=== PATIENT | male | born 1950 | race Caucasian/White ===

== ENCOUNTER → 2018-02-13 09:36 | Outpatient (CLI) | payer MEDICARE, OTHER, SELFPAY ==
[2018-02-13 12:51] LABS: AST(SGOT) 24 U/L (15-37); Alanine Aminotransfer ALT/SGPT 36 U/L (16-61); Albumin, Serum 4.1 g/dL (3.2-5.0); Alkaline Phosphatase 79 U/L (45-117); Bilirubin, Direct 0.18 mg/dL (0.00-0.30); Cholesterol 165 mg/dL (200); Globulin 4.2 g/dL (2.2-4.2); High Density Lipoprotein 57 mg/dL; Protein, Total 8.3 g/dL (6.4-8.2); Triglycerides 62 mg/dL; Very Low Density Lipoprotein 12 mg/dL (5-40)
== END ==
PROVIDERS: Family Provider Internal Medicine; PCP Internal Medicine; Visit Provider Internal Medicine Cardiovascular Disease
DX: E78.5 Hyperlipidemia, unspecified (principal)
CPT/HCPCS: 36415; 80061; 80076

== ENCOUNTER 2018-12-01 19:58 | Emergency (ER) | payer MEDICARE, OTHER, SELFPAY ==
[2018-12-01 19:59] VITALS: BP 136/67; PULSE 67; RESP 16; TEMP 36.5; O2SAT 97; BMI 32.3
[2018-12-01 20:30] VITALS: PULSE 58; RESP 20; O2SAT 93
--- NOTE | 2018-12-01 20:32 | EKG12_ITS ---
Test Reason : DIZZINESS Blood Pressure : / mmHG Vent. Rate : 057 BPM Atrial Rate : 057 BPM P-R Int : 224 ms QRS Dur : 118 ms QT Int : 466 ms P-R-T Axes : 038 070 040 degrees QTc Int : 453 ms Sinus bradycardia with 1st degree A-V block Non-specific intra-ventricular conduction delay Borderline ECG Confirmed by INGRID CHRISTIANSON ([id number]), book editor SHANTEL RDZ ([id number]) on 12/03/2018 10:11:58 AM Referred By: DC Confirmed By:INGRID CHRISTIANSON
--- NOTE | 2018-12-01 20:36 | RAD_ITS ---
HISTORY:PT ARRIVES TO ED WITH DIZZINESS AND NAUSEA. PT WAS IN THE HEAT ALL DAY PT ARRIVES TO ED WITH DIZZINESS AND NAUSEA. PT WAS IN THE HEAT ALL DAY EXAM: XR Chest 1 View: COMPARISON: None FINDINGS: # of images incl. paperwork: 1 LINES/DEVICES: None. LUNGS: Left midlung atelectasis. No consolidation, edema or effusion. No pneumothorax. MEDIASTINUM AND CARDIOVASCULAR STRUCTURES: Cardiac silhouette not enlarged. BONES AND SOFT TISSUES: Unremarkable. RAD/Chest 1 View (Portable) IMPRESSION: Left midlung atelectasiss at 2106 Reported and signed by: Ariadne Hernandez DO Electronically Signed: Ariadne Hernandez DO at 21:05 EDT Tel , Service support ,
[2018-12-01] MEDS: 0.9% Normal Saline 1,000 ML 1000 ML IV (20:43)
[2018-12-01 20:47] VITALS: BP 134/68; BP 135/75; BP 142/66; PULSE 58; PULSE 59; PULSE 61
[2018-12-01 20:53] LABS: Absolute Lymphocyte Count 2.87 X10^3/uL (0.83-4.51); Absolute Neutrophil Count 4.7 X10^3/uL (2.0-7.7); Basophil# 0.05 X10^3/uL; Basophil% 0.6 % (0-1); Eosinophil# 0.16 X10^3/uL; Eosinophils% 1.9 % (0-5); Hematocrit 38.9 % (40-54); Hemoglobin 13.3 g/dL (13.0-16.5); Lymphocyte # 2.87 X10^3/ul (4.0); Lymphocyte % 34.2 % (19-41); Mean Corp Hgb Conc 34.2 g/dL (32-36); Mean Corpuscular Hgb 32.4 pg (27.0-32.0); Mean Corpuscular Volume 94.6 fL (80-94); Mean Platelet Vol. 9.6 fl (6.2-12.0); Monocyte# 0.64 X10^3/uL; Monocyte% 7.6 % (0-10); NRBC Flagged by Analyzer 0 % (0-5); Neutrophil # 4.65 X10^3/uL (2.7-7.7); Neutrophil % 55.3 % (47-70); Platelet Count 238 K/mm3 (150-450); RBC Distribution Width CV 12.8 % (11.6-14.6); RBC Distribution Width SD 44.2 fl (35.1-43.9); Red Blood Count 4.11 M/mm3 (4.6-6.2); White Blood Count 8.4 K/mm3 (4.4-11.0)
[2018-12-01 21:26] LABS: Anion Gap 10 (5-15); BUN 20 mg/dL (7-18); BUN/Creat Ratio 17.2 RATIO (10-20); Calcium,Total 8.5 mg/dL (8.5-10.1); Chloride 104 mmol/L (98-107); Creatinine, Serum 1.16 mg/dL (0.70-1.30); EST Glomerular Filtration Rate 67 mL/min (>60); Est Glom Filt Rate - Afr Amer 81 mL/min (>60); Estimated Creatinine Clearance 63.81 ml/min; Glucose 118 mg/dL (74-106); Potassium 3.7 mmol/L (3.5-5.1); Sodium Level 137 mmol/L (136-145)
[2018-12-01 21:30] VITALS: BP 139/75; PULSE 54; RESP 14; O2SAT 96
--- NOTE | 2018-12-01 22:04 | ED.DCSUM_ITS ---
- ER Visit Summary Date of Service: 12/01/18 Chief Complaint: Lightheadedness History of Present Illness: The patient is a 68 M who presents with lightheadedness. It started when he stood up. He had been bending over to pull weeds. He felt like he was going to pass out. He was sweaty. He developed some nausea and vomited. He said he never felt like this before. He has a history of high blood pressure and high cholesterol as well as A. fib. He takes aspirin but no other blood thinners. He had a stress test which was normal, years ago. He denies any chest pain or shortness of breath. He did have some shoulder pain after playing golf yesterday. Denies headache, vision changes, speech changes, facial droop, weakness, or numbness. Physical Examination: Afebrile and vital signs unremarkable. Heart regular rate and rhythm. Lungs clear. Abdomen soft and nontender. Extremities nontender with no edema. Skin appears normal. Cranial nerves grossly intact. Normal strength and sensation. Normal cerebellar testing. NIH stroke scale is 0. Test Results: EKG showed sinus rhythm with first-degree AV block at a rate of 57. No sign of ischemia or infarction pattern. Troponin normal. CBC, BMP, chest x-ray unremarkable except for left mid lung atelectasis. Orthostatics were negative. Emergency Department Course and Treatment: Patient was treated with IV fluids while awaiting results. He was monitored. Work-up as above. Everything was fairly unremarkable. I believe his symptoms were due to orthostatic changes. He is not having chest pain and his work-up is unremarkable. Nothing to suggest stroke or neurologic process. No other red flag features. On reevaluation, the patient is feeling better. He will be discharged home. Stay rested and hydrated. Avoid sudden posture changes. Follow-up with primary care. Return right away for chest pain or any other new or worsening issues. Treatment Plan: As above Disposition: Discharge Impression: 1. Near syncope This note was generated with [employer] dictation software. It may contain incorrect words, spelling, and punctuation that were not noted in review of the chart prior to signing ED Disposition - Plan for ED Patient: Referrals: Nisha Carreno DO [Primary Care Provider] -
--- NOTE | 2018-12-01 22:08 | ED.DEP ---
ED Disposition - Plan for ED Patient: Instructions: NEAR SYNCOPE, Unknown Referrals: Nisha Carreno DO [Primary Care Provider] -
[2018-12-01 22:12] VITALS: BP 152/82; PULSE 53; RESP 18; O2SAT 94
== END 2018-12-01 22:15 | disposition home or self-care (01) ==
LOC: ED 20:41
PROVIDERS: Emergency Provider Emergency Medicine; Family Provider Internal Medicine; PCP Internal Medicine
DX: R55 Syncope and collapse (principal); I44.0 Atrioventricular block, first degree; E78.00 Pure hypercholesterolemia, unspecified; J98.11 Atelectasis; I10 Essential (primary) hypertension; I48.91 Unspecified atrial fibrillation; Z79.82 Long term (current) use of aspirin
CPT/HCPCS: 71045; 80048; 84484; 85025; 93005; 96360; 99285; J7030; A4216

== ENCOUNTER → 2019-03-03 14:35 | Outpatient (CLI) | payer MEDICARE, OTHER, SELFPAY ==
[2019-03-03 13:22] VITALS: BMI 33.2
[2019-03-03 18:04] LABS: AST(SGOT) 26 U/L (15-37); Alanine Aminotransfer ALT/SGPT 47 U/L (16-61); Albumin, Serum 4.1 g/dL (3.2-5.0); Alkaline Phosphatase 66 U/L (45-117); Bilirubin, Direct 0.13 mg/dL (0.00-0.30); Cholesterol 203 mg/dL (200); Globulin 3.8 g/dL (2.2-4.2); High Density Lipoprotein 64 mg/dL; Protein, Total 7.9 g/dL (6.4-8.2); Triglycerides 136 mg/dL; Very Low Density Lipoprotein 27 mg/dL (5-40)
== END ==
PROVIDERS: Family Provider Internal Medicine; PCP Internal Medicine; Visit Provider Physician Assistant Medical
DX: E78.00 Pure hypercholesterolemia, unspecified (principal)
CPT/HCPCS: 36415; 80061; 80076

== ENCOUNTER → 2019-03-23 06:21 | Outpatient (CLI) | payer MEDICARE, OTHER, SELFPAY ==
[2019-03-03 13:22] VITALS: BMI 33.2
--- NOTE | 2019-03-23 13:37 | STRESSREP ---
Stress Test Report Date: 03-23-19 Procedure: Exercise tolerance test/imaging study Indications: Atrial fibrillation Consent: Per the patient Procedure: The patient exercised on a Shawn protocol for 7 minutes and 45 seconds completing Stage II and 1 minute and 45 seconds of Stage III achieving a peak heart rate of 129 bpm (84 % predicted maximal heart rate) with a peak blood pressure 200/54 mmHg and a peak MET capacity of 9 METs. The baseline ECG demonstrated normal sinus rhythm; septal MD of indeterminate age cannot be excluded. The peak exercise ECG demonstrated no obvious ECG changes. There was a rare PVC pretest, during exercise, and recovery. The functional capacity was considered average. There was no complaint of chest discomfort during exercise or recovery. The examination was discontinued secondary to dyspnea. Impression: 1. Technically adequate (percent predicted maximal heart rate greater than 85%) exercise tolerance test 2. Peak exercise ECG with no obvious ECG changes 3. There was a rare PVC pretest, during exercise, and recovery 4. Nuclear images pending Myocardial perfusion imaging study: Technique: The patient was injected with 15.0 mCi of technetium 99m Cardiolite and subsequently rest SPECT Cardiolite nuclear imaging was obtained in the horizontal long, vertical long, and short axis views. The patient exercised on a Shawn protocol for 7 minutes and 45 seconds completing Stage II and 1 minute and 45 seconds of Stage III achieving a peak heart rate of 129 bpm (84 % predicted maximal heart rate) with a peak blood pressure 200/54 mmHg and a peak MET capacity of 9 METs. The patient was injected with 44.0 mCi of technetium 99m Cardiolite and subsequently stress SPECT Cardiolite nuclear imaging was obtained in the horizontal long, vertical long, and short axis views. A gated Cardiolite study at peak stress was obtained. Interpretation: Rest and stress SPECT Cardiolite nuclear imaging status post realignment, normalization, and attenuation correction, demonstrates at rest and stress of an area of diminished tracer uptake in portions of the distal anteroseptal segments, however, status post stress there is notation of the appearance of diminished myocardial perfusion/tracer uptake in portions of the mid anteroseptal segments. There is end systolic thickening and brightening. The gated Cardiolite study demonstrates myocardial thickening and inward wall motion. The reported LVEF is 63 %. Impression: 1. Rest and stress SPECT Cardiolite nuclear imaging demonstrate myocardial perfusion changes which may be compatible with shifting soft tissue attenuation/artifact although an element of myocardial ischemia in portions of the mid anteroseptal segments cannot necessarily be excluded. 2. The gated Cardiolite study reports an LVEF of 63 %. This note was generated with [employer] software. It may contain incorrect words, spelling, and punctuation that were not noted in checking the note before signing.
== END ==
PROVIDERS: Family Provider Internal Medicine; PCP Internal Medicine; Referring Provider Physician Assistant Medical; Visit Provider Physician Assistant Medical
DX: I48.0 Paroxysmal atrial fibrillation (principal); I10 Essential (primary) hypertension; E78.5 Hyperlipidemia, unspecified; R06.00 Dyspnea, unspecified
CPT/HCPCS: 78452; 93017; A9500; A4216

== ENCOUNTER → 2019-04-20 10:42 | Outpatient (CLI) | payer MEDICARE, OTHER, SELFPAY ==
[2019-04-14 11:18] VITALS: BMI 34.4
--- NOTE | 2019-04-20 10:44 | ECHOD_ITS ---
Reason For Study: AFIB/FLUTTER Procedure This was a 2D Doppler, Color Flow transthoracic echocardiogram. The study was technically difficult. Exam performed in department. Left Ventricle Normal LV size. Left ventricular systolic function is normal. The estimated ejection fraction is 55 %. No regional wall motion abnormalities noted. Right Ventricle Normal RV size. Normal systolic function. Atria Borderline enlarged left atrium. Normal right atrium. No doppler evidence for ASD. Mitral Valve There is no mitral annular calcification. Normal mitral valve. Mild (1+) eccentric mitral valve insufficiency. Tricuspid Valve Normal tricuspid valve. Trivial tricuspid valve insufficiency. Right ventricular systolic pressure estimated to be 41 mmHg. Aortic Valve Trisinus/trileaflet aortic valve. Normal aortic valve. Trivial aortic valve insufficiency. Pulmonic Valve The pulmonic valve is not well visualized. Trivial pulmonic valve insufficiency. Great Vessels Normal sized aortic root. Pericardium/Pleural No pericardial effusion. MMode/2D Measurements & Calculations LVIDd: 5.5 cm IVSd: 1.3 cm Ao root diam: 3.4 cm LVIDs: 4.0 cm LVPWd: 1.2 cm RVDd: 4.0 cm FS: 27.3 % LAV(MOD-bp): 52.3 ml LA A4 area: 18.7 cm2 LA dimension(2D): 4.2 cm LAV(MOD-bp) Indexed: 22.8 ml/m2 LAV(MOD-sp2): 52.7 ml LAV(MOD-sp4): 49.1 ml RA A4 area: 14.8 cm2 Time Measurements MV dec time: 0.18 sec Doppler Measurements & Calculations MV E max jaskaran: 102.7 cm/sec Lat Peak E' Jaskaran: 10.3 cm/sec Med Peak E' Jaskaran: 6.1 cm/sec MV A max jaskaran: 62.2 cm/sec E/E' lat: 9.9 E/E' med: 16.8 MV E/A: 1.6 Ao V2 max: 123.4 cm/sec LV V1 max: 110.0 cm/sec MR max jaskaran: 504.7 cm/sec Ao max P.1 mmHg LV V1 max P.8 mmHg MR max P.9 mmHg MR mean jaskaran: 418.5 cm/sec MR mean P.4 mmHg MR VTI: 177.3 cm PA V2 max: 155.8 cm/sec TR max jaskaran: 307.0 cm/sec TR max P.7 mmHg Interpretation Summary The study was technically difficult. Left ventricular systolic function is normal. The estimated ejection fraction is 55 %. Borderline enlarged left atrium. Mild (1+) eccentric mitral valve insufficiency. Trivial tricuspid valve insufficiency. Trivial aortic valve insufficiency. Trivial pulmonic valve insufficiency. Right ventricular systolic pressure estimated to be 41 mmHg. Transmitral diastolic flow velocities suggest diastolic dysfunction (pseudonormal pattern). Ordering Physician: Jimmy Herrera Referring Physician: Nisha Carreno Performed By: Ginger Baeza RDCS, RVT
== END ==
PROVIDERS: Family Provider Internal Medicine; PCP Internal Medicine; Referring Provider Internal Medicine Cardiovascular Disease; Visit Provider Internal Medicine Cardiovascular Disease
DX: I48.92 Unspecified atrial flutter (principal); R94.39 Abnormal result of other cardiovascular function study; I48.0 Paroxysmal atrial fibrillation; I49.3 Ventricular premature depolarization; E78.5 Hyperlipidemia, unspecified; I10 Essential (primary) hypertension
CPT/HCPCS: 93306

== ENCOUNTER 2019-04-23 07:36 | Day surgery (SDC) | payer MEDICARE, OTHER, SELFPAY ==
[2019-03-03 13:22] VITALS: BMI 33.2
--- NOTE | 2019-04-14 03:38 | HP_ITS ---
HPI HPI History of Present Illness Surgical H&P: Yes Details: This is a 68-year-old gentleman that presents here today for a cardiovascular follow-up. He has a history of paroxysmal atrial fibrillation, hypertension and hyperlipidemia. He was in the ER over the summer for near syncope. He states after an extensive evaluation he was told that he was dehydrated. He states that the moment he feels well overall with no ongoing resting or exertional chest discomforts or difficulty breathing. He has had no recurrent near syncope or syncope. He did have a follow-up evaluation which included an exercise tolerance test/imaging study. The results are as noted below. Has noted an area of myocardial ischemia in the anteroseptal distribution cannot be excluded. Thus he has been recommended for further definitive evaluation with diagnostic cardiac catheterization. The procedure and risks were discussed with the patient with his present. He was in agreement with this as he states he would rather no more definitively whether he truly has an ongoing issue based upon previous symptoms, family history, etc. Also it would be prudent to know based upon his use of antiarrhythmic therapy with a class Ic agent such as flecainide. If he would have significant CAD that he may have to be considered for an alternative antiarrhythmic agent. 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 Accompanied by: Allergies No Known Allergies Allergy (Verified 04/14/19 11:18) Medications aspirin 81 mg tablet,delayed release 81 mg PO DAILY 02/11/18 [History Confirmed 04/14/19] multivitamin tablet 1 tab PO DAILY 02/11/18 [History Confirmed 04/14/19] diltiazem CD 180 mg capsule,extended release 24 hr 180 mg PO BID #180 cap 03/03/19 [Rx Confirmed 04/14/19] flecainide 150 mg tablet 150 mg PO BID #180 tab 03/03/19 [Rx Confirmed 04/14/19] pravastatin 40 mg tablet 40 mg PO DAILY #90 tab 03/03/19 [Rx Confirmed 04/14/19] valsartan 320 mg tablet 320 mg PO DAILY #90 tab 03/03/19 [Rx Confirmed 04/14/19] clopidogrel 75 mg tablet 75 mg PO DAILY #30 tab 04/14/19 [Rx Confirmed 04/14/19] PFSH Medical History Abnormal stress test (Acute) Premature ventricular contraction (Acute) Hyperlipemia (Chronic) Essential hypertension (Chronic) Paroxysmal atrial fibrillation (Chronic) History of DVT (deep vein thrombosis) (Acute) History of pulmonary embolism (Acute) Sleep apnea (Acute) History of DVT (deep vein thrombosis) (Inactive) Surgical History History of right hip replacement (Resolved) Family History Father Myocardial infarction, Onset Age: 48 Hypertension Sister Atrial fibrillation Social History (Updated 04/14/19 @ 15:38 by Jimmy Herrera MD) Smoking Status: Never smoker alcohol intake: current details: occasional substance use type: does not use ROS Const Const: Negative for fatigue, weakness, frequent falls, excessive sweating, weight gain or weight loss Eyes Eyes: Negative for transient loss of vision, blurry vision or change in vision ENT ENT: Negative for dizziness or balance problems Cardio Chest Pain: No Palpitations: No Edema: None Muscle aches with walking: None Resp Respiratory: Negative for SOB with activity or SOB at rest GI GI: Negative vomiting or vomiting blood/hematemesis : Negative for hematuria Musc Musc: Negative for muscle aches/ myalgia, muscle weakness, joint pain or balance problems Skin Skin: Negative non-healing lesions or rash Neuro Neuro: Negative for dizziness, lightheadedness, orthostatic symptoms, frequent falls, weakness or blurry vision Francisco Hematologic/Lymphatic: Negative for easy bleeding Endo Endo: Negative for fatigue or excessive sweating Psych Psych: Negative for anxiety or depression Allergy Allergy/Immunology: Negative for hives, Negative for rash Cardiology Exam Const Appearance: cooperative, healthy appearing, comfortable, no acute distress, well developed and well groomed Nutritional Appearance: average body habitus Orientation: alert, awake and oriented x3 Head Head: normal to inspection, normocephalic and atraumatic Ears: hearing grossly normal bilaterally Nose: external nose normal Face and Sinus: face symmetric Mouth: oral mucosae normal Teeth and gingiva: fair dentition Eyes Eyelids: eyelids normal Conjunctivae: conjunctivae normal Pupils: PERRL EOM: EOM intact bilaterally Neck Neck: normal visual inspection and full ROM Carotids: normal carotid upstroke Chest Chest inspection: normal inspection of the chest and symmetric chest movement Auscultation: Bilateral: Clear to Auscultation Cardio Palpation: normal PMI Rate: regular rate Rhythm: regular rhythm Heart sounds: S1 normal and S2 normal GI GI: normal to inspection, soft and bowel sounds present Neuro General: alert, awake, oriented x3, gait normal, moves all extremities, no focal sensory deficit and no focal motor deficits Skin Skin: no rashes or lesions noted Extremities Pulses: Normal: Right Radial Pulse, Left Radial Pulse Lower Extremity Edema: None: Bilateral Psych Psychological: normal affect Assessment & Plan 1. Abnormal stress test R94.39 Plan At the present time he will continue his current medical therapy. He will proceed with further evaluation with diagnostic cardiac catheterization. Orders Orders: Basic Metabolic Profile (BMP) 04/23/19 Partial Thromboplast Time 04/23/19 Prothrombin Time w/INR 04/23/19 CBC W/Diff, Automated 04/23/19 Echo Complete Today 2. Paroxysmal atrial fibrillation I48.0 Plan He appears to be remaining in a regular rhythm. He will continue medical therapy and follow-up. Orders Orders: Basic Metabolic Profile (BMP) 04/23/19 Partial Thromboplast Time 04/23/19 Prothrombin Time w/INR 04/23/19 CBC W/Diff, Automated 04/23/19 Echo Complete Today 3. Premature ventricular beat I49.3 Plan He does have a history of cardiac ectopy. Again he will continue his current medical therapy and follow-up. Orders Orders: Basic Metabolic Profile (BMP) 04/23/19 Partial Thromboplast Time 04/23/19 Prothrombin Time w/INR 04/23/19 CBC W/Diff, Automated 04/23/19 Echo Complete Today 4. Hyperlipidemia, unspecified hyperlipidemia type E78.5 Plan His lipid labs from February this year were reviewed. His total cholesterol was 203 with an LDL of 112. His HDL level was 64 and his triglyceride level was 136. Orders Orders: Basic Metabolic Profile (BMP) 04/23/19 Partial Thromboplast Time 04/23/19 Prothrombin Time w/INR 04/23/19 CBC W/Diff, Automated 04/23/19 Echo Complete Today 5. Essential hypertension I10 Plan His blood pressure appears to be reasonably well controlled at this time. He will continue medical management. Orders Orders: Basic Metabolic Profile (BMP) 04/23/19 Partial Thromboplast Time 04/23/19 Prothrombin Time w/INR 04/23/19 CBC W/Diff, Automated 04/23/19 Echo Complete Today Plan Detail Other Medications New: clopidogrel 75 mg PO DAILY 30 tabs 3RF Additional Comments Thank you for allowing me to participate in the care of your patient. Please don't hesitate to call if any issues arise. This note was generated using a voice recognition system and there may be incorrect words, spelling or punctuation that were not noted when reviewing the office note prior to saving. Follow Up 6 Months (PFM) Coding Level of Care Code Off vis,est,level 4 Diagnoses Abnormal stress test R94.39 Paroxysmal atrial fibrillation I48.0 Premature ventricular beat I49.3 Hyperlipidemia, unspecified hyperlipidemia type E78.5 ??Hyperlipidemia type: unspecified Essential hypertension I10 Coding Level of Care Code Off vis,est,level 4 Diagnoses Abnormal stress test R94.39 Paroxysmal atrial fibrillation I48.0 Premature ventricular beat I49.3 Hyperlipidemia, unspecified hyperlipidemia type E78.5 ??Hyperlipidemia type: unspecified Essential hypertension I10 Supplemental Info Supplemental Information He did have a transthoracic echocardiogram performed on 03/08/2011 Interpretation Summary Left ventricular systolic function is normal. The estimated ejection fraction is 55 % Mild-Moderate (1-2+) eccentrIc mitral valve insufficiency. Mild tricuspid valve insufficiency. Right ventricular systolic pressure estimated to be 20 mmHg. He had an exercise tolerance test/nuclear imaging study performed on 03/08/2011 TECHNIQUE The patient was injected with 14.7 mCi of Tc99m Cardiolite and subsequently rest SPECT Cardiolite nuclear imaging was obtained in the horizontal long, vertical long, and short axes views. The patient exercised on a Shawn protocol for 9 minutes and 45 seconds achieving a peak heart rate of 164 beats per minute (102%) predicted maximum heart rate with a peak blood pressure of 176/90 mmHg and a peak MET capacity of approximately 11 METs. The patient was injected with 44.4 mCi of Tc99m Cardiolite and subsequently stress SPECT Cardiolite nuclear imaging was obtained in the horizontal long, vertical long, and short axes views. Gated Cardiolite study at peak stress was obtained. INTERPRETATION Rest SPECT Cardiolite nuclear imaging demonstrates an area of diminished tracer uptake in portions of the mid to distal anteroseptal segments as well as the basal to mid inferior segments, which appear to improve and/or normalize following stress. Following stress there appears to be relative uniform tracer uptake and myocardial perfusion appearing within normal limits. There is end systolic thickening and brightening. The gated Cardiolite study demonstrates myocardial thickening and inward wall motion. The reported LVEF is 53%. The aforementioned findings appear compatible with the effects of shifting soft tissue attenuation/artifact being more prominent at rest as opposed to stress with no myocardial perfusion changes considered diagnostic for stress induced myocardial ischemia or previous myocardial injury/infarction. IMPRESSION 1. Rest and stress SPECT Cardiolite nuclear imaging demonstrate myocardial perfusion changes appearing compatible with the effects of shifting soft tissue attenuation/artifact being more prominent at rest as opposed to stress with no myocardial perfusion changes considered diagnostic for stress induced myocardial ischemia or previous myocardial injury/infarction. 2. The gated Cardiolite study reports an LVEF of 53%. Stress Test Report Date: 03-23-19 Procedure: Exercise tolerance test/imaging study Indications: Atrial fibrillation Consent: Per the patient Procedure: The patient exercised on a Shawn protocol for 7 minutes and 45 seconds completing Stage II and 1 minute and 45 seconds of Stage III achieving a peak heart rate of 129 bpm (84 % predicted maximal heart rate) with a peak blood pressure 200/54 mmHg and a peak MET capacity of 9 METs. The baseline ECG demonstrated normal sinus rhythm; septal DE of indeterminate age cannot be excluded. The peak exercise ECG demonstrated no obvious ECG changes. There was a rare PVC pretest, during exercise, and recovery. The functional capacity was considered average. There was no complaint of chest discomfort during exercise or recovery. The examination was discontinued secondary to dyspnea. Impression: 1. Technically adequate (percent predicted maximal heart rate greater than 85%) exercise tolerance test 2. Peak exercise ECG with no obvious ECG changes 3. There was a rare PVC pretest, during exercise, and recovery 4. Nuclear images pending Myocardial perfusion imaging study: Technique: The patient was injected with 15.0 mCi of technetium 99m Cardiolite and subsequently rest SPECT Cardiolite nuclear imaging was obtained in the horizontal long, vertical long, and short axis views. The patient exercised on a Shawn protocol for 7 minutes and 45 seconds completing Stage II and 1 minute and 45 seconds of Stage III achieving a peak heart rate of 129 bpm (84 % predicted maximal heart rate) with a peak blood pressure 200/54 mmHg and a peak MET capacity of 9 METs. The patient was injected with 44.0 mCi of technetium 99m Cardiolite and subsequently stress SPECT Cardiolite nuclear imaging was obtained in the horizontal long, vertical long, and short axis views. A gated Cardiolite study at peak stress was obtained. Interpretation: Rest and stress SPECT Cardiolite nuclear imaging status post realignment, normalization, and attenuation correction, demonstrates at rest and stress of an area of diminished tracer uptake in portions of the distal anteroseptal segments, however, status post stress there is notation of the appearance of diminished myocardial perfusion/tracer uptake in portions of the mid anteroseptal segments. There is end systolic thickening and brightening. The gated Cardiolite study demonstrates myocardial thickening and inward wall motion. The reported LVEF is 63 %. Impression: 1. Rest and stress SPECT Cardiolite nuclear imaging demonstrate myocardial perfusion changes which may be compatible with shifting soft tissue attenuation/artifact although an element of myocardial ischemia in portions of the mid anteroseptal segments cannot necessarily be excluded. 2. The gated Cardiolite study reports an LVEF of 63 %. He had a Holter monitor performed in [place] on 04/17/2010 This was reported as demonstrating that the basic rhythm was sinus with rare supraventricular beats/ventricular beats with no events noted Labs LDL Cholesterol 112 mg/dL (0-130) 03/03/19 HDL Cholesterol 64 mg/dL (40-) 03/03/19 Triglycerides 136 mg/dL (-199) 03/03/19 VLDL Cholesterol 27 mg/dL (5-40) 03/03/19 Diagnostics Electrocardiogram 03/03/19 Stress Test 03/23/19 Chest X-Ray 12/01/18 04/14/19 [id number] <Electronically signed by Jimmy ron MD> Date _ Jimmy Herrera MD I have re-examined the patient. There are no clinical changes since date of exam.
[2019-04-14 11:18] VITALS: BMI 34.4
[2019-04-14 12:55] LABS: Absolute Lymphocyte Count 1.38 X10^3/uL (0.83-4.51); Absolute Neutrophil Count 4.9 X10^3/uL (2.0-7.7); Basophil# 0.03 X10^3/uL; Basophil% 0.4 % (0-1); Eosinophil# 0.23 X10^3/uL; Eosinophils% 3.2 % (0-5); Hematocrit 43.9 % (40-54); Hemoglobin 14.3 g/dL (13.0-16.5); Lymphocyte # 1.38 X10^3/ul (4.0); Lymphocyte % 19.4 % (19-41); Mean Corp Hgb Conc 32.6 g/dL (32-36); Mean Corpuscular Hgb 31.6 pg (27.0-32.0); Mean Corpuscular Volume 97.1 fL (80-94); Mean Platelet Vol. 9.5 fl (6.2-12.0); Monocyte# 0.54 X10^3/uL; Monocyte% 7.6 % (0-10); NRBC Flagged by Analyzer 0 % (0-5); Neutrophil # 4.92 X10^3/uL (2.7-7.7); Platelet Count 258 K/mm3 (150-450); RBC Distribution Width CV 12.8 % (11.6-14.6); RBC Distribution Width SD 45.9 fl (35.1-43.9); Red Blood Count 4.52 M/mm3 (4.6-6.2); White Blood Count 7.1 K/mm3 (4.4-11.0)
[2019-04-14 13:05] LABS: Prothrombin Time (Protime)PT. 12.5 SECONDS (11.7-14.9)
[2019-04-14 13:06] LABS: Partial Thromboplast Time 26.1 Seconds (24.1-36.2)
[2019-04-14 13:20] LABS: Anion Gap 4 (5-15); BUN 16 mg/dL (7-18); BUN/Creat Ratio 15.8 RATIO (10-20); Calcium,Total 9.2 mg/dL (8.5-10.1); Chloride 105 mmol/L (98-107); Creatinine, Serum 1.01 mg/dL (0.70-1.30); EST Glomerular Filtration Rate 78 mL/min (>60); Est Glom Filt Rate - Afr Amer 95 mL/min (>60); Glucose 95 mg/dL (74-106); Potassium 4.5 mmol/L (3.5-5.1); Sodium Level 139 mmol/L (136-145)
[2019-04-21 13:26] VITALS: BMI 34.4
--- NOTE | 2019-04-23 20:49 | CL.D_ITS ---
Patient Name: DELICIA SHEA Study Date: 04/23/2019 Performing: Jimmy Herrera MD Ht: 71 inches 180 cm : 1950 Wt: 247.2 lbs 112 kg Age: 68 Gender: male BSA: 2.3 PROCEDURE(S) PERFORMED [id number]/LV CLINICAL PROFILE AND INDICATIONS Indications: Suspected CAD Heart Failure: None Stress/Imaging Date: 04/14/2019 Angina Classification Anginal Classification w/in 2 Weeks: CCS III CAD Presentations: Stable angina. CONCLUSIONS Elevated Left Ventricular End Diastolic Pressure Normal LV size, wall motion,and systolic function LVEF: by LV gram 60 % Single vessel CAD of the LAD: mild luminal irregularities RECOMMENDATIONS Risk factor modification Medical therapy DESCRIPTION OF PROCEDURE The patient arrived to the procedure lab. The risks and benefits of the procedure as well as a full d escription of our services here and current unavailability of surgical backup were fully explained to the patient and/or their significant other prior to the catheterization. The Timeout was completed, verifying the correct patient and procedure. The patient's procedural site was prepped and draped in the usual fashion. Local anesthetic was given subcutaneously to right groin region with Lidocaine 2%. Using a modified Seldinger technique, arterial access was obtained via the right femoral artery, a 4 Fr sheath was inserted Left Coronary Artery selective angiography was performed in multiple views us ing a 4 Fr. JL5 catheter. Right Coronary Artery selective angiography was then performed in multiple views using a 4 Fr. 3DRC catheter. Left Ventriculography was performed in DOVE projection using a 4 Fr . Pigtail catheter. LV to AO pullback pressures were then recorded.The arterial sheath was pulled and manual compression applied until hemostasis is achieved. CORONARY ANGIOGRAPHY DOMINANCE: Right Dominant LEFT HEART ASSESSMENT Left Ventricular Ejection Fraction: by LV Gram 60 % Normal LV wall motion Elevated Left Ventricular End Diastolic Pressure LVEDP: 16 mmHg LEFT MAIN: Angiographically normal LEFT ANTERIOR DESCENDING ARTERY: PROX LAD: Mild luminal irregularities CIRCUMFLEX ARTERY: Angiographically normal RIGHT CORONARY ARTERY: Angiographically normal AORTIC ROOT: Angiographically normal COMPLICATIONS No Complications PROCEDURE MEDICATIONS Versed 1 mg IV Oxygen: 2 L/min via nasal cannula SUMMARY OF HEMODYNAMIC DATA Time AIR REST ECG 08:00:43 AO 132/74 (97) SA 09:13:11 LV 134/8, 14 09:18:23 LV 138/-16, 16 09:19:02 LV 141/-17, 16 09:20:03 LV 143/-14, 16 09:20:09 LVp 149/-19, 14 09:20:26 AOp 144/62 (97) 09:20:32 Signed By Jimmy Herrera MD On 04/23/2019 20:48:34 Jimmy Herrera MD
== END 2019-04-23 14:06 | disposition home or self-care (01) ==
LOC: CLSP 07:36
PROVIDERS: Family Provider Internal Medicine; PCP Internal Medicine; Referring Provider Internal Medicine Cardiovascular Disease; Visit Provider Internal Medicine Cardiovascular Disease
DX: I25.118 Atherosclerotic heart disease of native coronary artery with other forms of angina pectoris (principal); R94.39 Abnormal result of other cardiovascular function study; I48.0 Paroxysmal atrial fibrillation; I49.3 Ventricular premature depolarization; E78.5 Hyperlipidemia, unspecified; I10 Essential (primary) hypertension; I34.0 Nonrheumatic mitral (valve) insufficiency; I07.1 Rheumatic tricuspid insufficiency; Z79.82 Long term (current) use of aspirin; Z86.711 Personal history of pulmonary embolism; Z82.49 Family history of ischemic heart disease and other diseases of the circulatory system
CPT/HCPCS: 36415; 80048; 85025; 85610; 85730; 93458; 99152; C1769; C1894; Q9967

== ENCOUNTER → 2021-02-16 09:24 | Outpatient (CLI) | payer MEDICARE, BC, SELFPAY ==
[2021-02-16 12:30] LABS: AST(SGOT) 24 U/L (15-37); Alanine Aminotransfer ALT/SGPT 43 U/L (16-61); Alkaline Phosphatase 73 U/L (45-117); Bilirubin, Direct 0.19 mg/dL (0.00-0.30); Cholesterol 185 mg/dL (200); Globulin 3.8 g/dL (2.2-4.2); High Density Lipoprotein 50 mg/dL; Protein, Total 7.8 g/dL (6.4-8.2); Triglycerides 129 mg/dL; Very Low Density Lipoprotein 26 mg/dL (5-40)
== END ==
PROVIDERS: PCP Internal Medicine; Visit Provider Physician Assistant Medical
DX: I10 Essential (primary) hypertension (principal); I48.0 Paroxysmal atrial fibrillation; E78.5 Hyperlipidemia, unspecified
CPT/HCPCS: 36415; 80061; 80076

== ENCOUNTER 2021-11-09 11:03 | Emergency (ER) | payer MEDICARE, BC, SELFPAY ==
[2021-11-09 11:04] VITALS: BP 156/76; PULSE 72; RESP 18; TEMP 37.1; O2SAT 98; BMI 33.0
--- NOTE | 2021-11-09 11:38 | EDS_ITS ---
HPI History of Present Illness HPI Narrative: Left lower thigh laceration after being hit with a chainsaw. Chief Complaint: Laceration Informant: patient Occured/Mechanism Mechanism/Context: Yes injury Onset/Context/Timing Onset: Today Context: Sudden Onset Timing: Continuous Quality of Pain: Dull Current Severity: Mild Maximum Severity: Mild Associated Symptoms Associated Symptoms: Negative for Parasthesia, Weakness or Loss of Funtion Narrative Narrative: 71-year-old male was using a chain saw when he accidentally contacted his left lower thigh above the knee causing a laceration. This occurred about an hour and a half ago. He believes he needs his tetanus updated. Denies any other complaints. No numbness or weakness. He is not on any blood thinners. Tetanus Immunization: Unknown Prior similar symptoms: No Recent Illness/Hospitalization: No [facility] Medical History (Updated 11/09/21 @ 13:[address] Reilly Laws MD) Abnormal stress test Essential hypertension History of DVT (deep vein thrombosis) History of DVT (deep vein thrombosis) History of left heart catheterization (LHC) (~04/23/19) History of pulmonary embolism Hyperlipemia Paroxysmal atrial fibrillation Premature ventricular contraction Sleep apnea Home Medications aspirin 81 mg tablet,delayed release (Adult Low Dose Aspirin) 81 mg PO DAILY 02/11/18 [History Last Taken 04/23/19] multivitamin 1 tab PO DAILY 02/11/18 [History Last Taken Unknown] flecainide 150 mg tablet 150 mg PO BID #180 tabs 02/16/21 [Rx Last Taken Unknown] pravastatin 40 mg tablet 40 mg PO DAILY #90 tabs 02/16/21 [Rx Last Taken Unknown] diltiazem HCl 180 mg capsule,extended release 24 hr (Cardizem CD) 180 mg PO BID #180 caps 08/01/21 [Rx Last Taken Unknown] valsartan 320 mg tablet (Diovan) 320 mg PO DAILY #90 tabs 08/01/21 [Rx Last Taken Unknown] Allergy/AdvReac Type Severity Reaction Status Date / Time No Known Allergies Allergy Verified 11/09/21 11:05 Family History Father Myocardial infarction, Onset Age: 48 Hypertension Sister Atrial fibrillation Surgical History History of right hip replacement Social History Smoking Status: Never smoker alcohol intake: current details: occasional substance use type: does not use ROS ROS ED ROS Narrative Denies any recent illness. Review of Systems ROS Unobtainable: Denies due to encephalopathy Constitutional Constitutional ED: Denies chills Eyes Eyes: Denies blurry vision ENT ENT ED: Denies ear pain Cardiovascular Cardiovascular: Denies chest pain Respiratory/Chest Respiratory/Chest: Denies cough Gastrointestinal Gastrointestinal: Denies abdominal pain Genitourinary Genitourinary ED: Denies dysuria Musculoskeletal Musculoskeletal: Denies arthralgias Integumentary Denies abscess Neurologic Neurologic: Denies headache(s) Psychiatric Psychiatric: Denies anxiety Endocrine Endocrinology: Denies polydipsia Hematologic/Lymphatic Hematologic/Lymphatic: Denies easy bleeding Allergic/Immunologic Allergic/Immunologic ED: Denies mouth swelling EXAM Physical Exam Narrative Exam Narrative: 8-year-old male no acute distress. Vital signs stable afebrile. H EENT exam unremarkable. Lungs are clear. Heart regular rhythm. Abdomen soft nontender. Moving all 4 extremities. Neurovascular intact. Above his left knee several inches in the anterior lower thigh he has a laceration from a chainsaw. There is dried blood. Currently no active pulsatile bleeding. No signs of infection. He has full flexion-extension of his left hip, knee ankle foot. Dorsi plantarflexion intact. Normal touch sensation. He can lift his leg off the bed. He can do 180 degrees of extension to his knee and flex and extend the knee. Otherwise exam unremarkable. Const Vital Signs: 11/09/21 11:04 Temperature 98.8 F Temperature Source Temporal Pulse Rate 72 Respiratory Rate 18 Blood Pressure 156/76 H Blood Pressure Mean 102 Pulse Ox 98 Oxygen Delivery Method Room Air Positive well nourished and well developed; Negative for cachectic, contractures or unkempt General Appearance ED: well developed; Negative for unkempt, cachectic or contractures Nutritional Appearance: Negative for cachectic HEENT Reports moist mucous membranes normocephalic and atraumatic; Negative for trauma or tenderness Eyes PERRL Neck full ROM and supple Lymph Lymphatic: Negative for other Chest Wall inspection of chest normal and palpation of chest normal Resp normal respiratory effort, no retractions and clear to auscultation bilaterally Effort and Inspection: Negative for pain with movement Auscultation: Negative for rales or rhonchi Cardio regular rate, regular rhythm, S1 normal heart sound and S2 normal heart sound GI non-tender, non-distended and no masses Inspection: Negative for abdominal distention Auscultation: normoactive bowel sounds Palpation: soft; Negative for tender or guarding Back/Spine no CVA tenderness General Back: Negative for CVA tenderness Cervical Spine: Negative for cervical spine tenderness Thoracic Spine / Upper Back: Negative for thoracic spinal tenderness Extremity normal to inspection General Extremety ED: Negative for cyanosis or edema General Extremity: Negative for cyanosis or edema Neuro oriented x3, moves all extremities and no sensory deficits noted Sensorium / Orientation: alert, oriented to person, oriented to place and oriented to time; Negative for orientation impaired, confused, lethargic or stuporous Motor Exam: strength 5/5 throughout; Negative for general weakness or strength abnormal Psych mental status grossly normal Appearance: Negative for unkempt Skin no wounds Lesions: no lesions Rashes: no rashes Trauma: laceration linear MDM MDM MDM Narrative Medical decision making narrative: 71-year-old male with a linear laceration on his left lower thigh above the knee. Will need cleaned. Explored. Suture repaired. Tetanus to be updated. Suture repaired. Tetanus updated. Discharged home with wound care instructions. Suture removal in 10 days. Procedures Lacerations Right anterior distal thigh laceration: Length: 2.76 in Depth: Sub Q Shape: Linear Prep: Betadine and Shure-Clens Laceration repair: Irrigated, Lidocaine, Local, Skin sutures and Wound explored Number of Sutures/Filomena: 5 Suture Information: Ethilon, Simple and 4-0 Comment: Right distal anterior thigh laceration several inches proximal to the knee. Laceration is approximately 3 inches in length. About 7 to 8 cm. Involve the skin and subcu tissue. No foreign body. No active bleeding. No pulsatile bleeding. Flexion-extension knee intact. No signs of infection or foreign body. Local anesthetized with lidocaine. Cleaned with Shur-Clens and iodine. Washed with saline. Explored. Closed using 5 simple erupted 4-0 Ethilon sutures. Proper hemostasis and wound closure is obtained. Patient was instructed on wound care. Discharge Plan Triage Chief Complaint: Laceration ED Provider: Reilly Laws Dx/Rx/DC Orders Clinical Impression: Laceration of right thigh Instructions: ED Laceration: All Closures Prescriptions: No Action aspirin [Adult Low Dose Aspirin] 81 mg tablet,delayed release (DR/EC) 81 mg PO DAILY multivitamin tablet 1 tab PO DAILY flecainide 150 mg tablet 150 mg PO BID Qty: 180 3RF pravastatin 40 mg tablet 40 mg PO DAILY Qty: 90 3RF diltiazem HCl [Cardizem CD] 180 mg capsule,extended release 24hr 180 mg PO BID Qty: 180 3RF valsartan [Diovan] 320 mg tablet 320 mg PO DAILY Qty: 90 3RF Primary Care Provider: Nisha Carreno Referrals: Nisha Carreno DO [Primary Care Provider] - 10 Day for suture removal Activity Restrictions/Additional Instructions: Keep wound clean with soap and water. Apply antibiotic ointment daily. Watch for any signs of infection such as redness, pus, fever or streaks of seen return. Stitches out in 10 days. Disposition Disposition: Home, Self Care
[2021-11-09] MEDS: Diphth,Pertuss(Acell),Tet Vac 0.5 ML Vial IM (12:05)
[2021-11-09] MEDS: Lidocaine 1% (20 ml mdv) 20 ML Vial 10 ML INFILT (12:05)
[2021-11-09 13:13] VITALS: BP 140/78; PULSE 74; RESP 14; TEMP 37.1; O2SAT 99
== END 2021-11-09 13:15 | disposition home or self-care (01) ==
PROVIDERS: Emergency Provider Emergency Medicine; PCP Internal Medicine; Visit Provider Emergency Medicine
DX: S71.111A Laceration without foreign body, right thigh, initial encounter (principal); I48.0 Paroxysmal atrial fibrillation; S71.112A Laceration without foreign body, left thigh, initial encounter; I10 Essential (primary) hypertension; S81.019A Laceration without foreign body, unspecified knee, initial encounter; E78.5 Hyperlipidemia, unspecified; Z86.718 Personal history of other venous thrombosis and embolism; Z23 Encounter for immunization
CPT/HCPCS: 12004; 90471; 90715; 99284

== ENCOUNTER → 2022-01-04 | Outpatient (CLI) | payer MEDICARE, BC, SELFPAY ==
[2022-01-04 12:52] LABS: AST(SGOT) 20 U/L (15-37); Alanine Aminotransfer ALT/SGPT 32 U/L (16-61); Alkaline Phosphatase 64 U/L (45-117); Bilirubin, Direct 0.15 mg/dL (0.00-0.30); Cholesterol 165 mg/dL (200); Globulin 3.6 g/dL (2.2-4.2); High Density Lipoprotein 48 mg/dL; Protein, Total 7.6 g/dL (6.4-8.2); Triglycerides 143 mg/dL; Very Low Density Lipoprotein 29 mg/dL (5-40)
== END | disposition home or self-care (01) ==
PROVIDERS: PCP Internal Medicine; Visit Provider Internal Medicine Cardiovascular Disease
DX: E78.00 Pure hypercholesterolemia, unspecified (principal)
CPT/HCPCS: 36415; 80061; 80076

== ENCOUNTER → 2022-05-14 | Outpatient (CLI) | payer MEDICARE, BC, SELFPAY ==
--- NOTE | 2022-05-14 15:26 | CT_ITS ---
EXAM: CT ANGIOGRAPHY CHEST WITHOUT AND WITH INTRAVENOUS CONTRAST CLINICAL INDICATION: SOB last 3 days, elevated D Dimer TECHNIQUE: Helically acquired angiography images were obtained of the chest without and with intravenous contrast. This CT exam was performed using one or more of the following dose reduction techniques: automated exposure control, adjustment of the mA and/or kV according to patient size, and/or use of iterative reconstruction technique. This report was created using leaselock report generation technology. MIP reconstructed images were created and reviewed. CONTRAST: IV 100mL Isovue-370 RADIATION DOSE: CTDIvol = 11.3 mGy, DLP = 473.57 mGy-cm COMPARISON: None. FINDINGS: PULMONARY ARTERIES: No demonstrated pulmonary embolism or arterial dissection. AORTA: There is atherosclerotic calcification of the aortic arch with tortuosity and elongation of the aortic arch and descending thoracic aorta. Normal in caliber. No evidence of dissection. GREAT VESSELS OF AORTIC ARCH: Unremarkable. Normal in caliber. No evidence of dissection. LUNGS AND PLEURAL SPACES: Unremarkable. No mass. No consolidation or edema. No pleural effusion or thickening. No pneumothorax. HEART: There are calcifications of the coronary arteries. No pericardial effusion. No signs of right heart strain, ratio of right ventricle to left ventricle measures less than 1. MEDIASTINUM: Unremarkable. No mediastinal or hilar adenopathy. Esophagus is unremarkable. No hiatal hernia. THYROID: Unremarkable. No thyroid lesions. BONES/JOINTS: There are degenerative changes of the shoulders. There are multi-level degenerative changes of the thoracic spine. No suspicious lytic or blastic abnormality. LIVER: Multiple hepatic hypodensities. MRI of the liver can better evaluate. CT/CTA Chest W/WO Contrast IMPRESSION: 1. No demonstrated pulmonary embolism or arterial dissection. 2. Multiple hepatic hypodensities. MRI of the liver can better evaluate. Electronically Signed: Karl Campo MD at 16:06 EST ,
== END | disposition home or self-care (01) ==
LOC: CT 15:25
PROVIDERS: PCP Internal Medicine; Referring Provider Internal Medicine Cardiovascular Disease; Visit Provider Internal Medicine Cardiovascular Disease
DX: R06.02 Shortness of breath (principal); R79.89 Other specified abnormal findings of blood chemistry; Z86.718 Personal history of other venous thrombosis and embolism
CPT/HCPCS: 36415; 71046; 71275; 80048; 83880; 85027; 85379; Q9967

== ENCOUNTER → 2022-05-14 | Outpatient (CLI) | payer MEDICARE, BC, SELFPAY ==
--- NOTE | 2022-05-14 14:10 | RAD_ITS ---
STUDY: X-RAY CHEST REASON FOR EXAM: Male, 71 years old. shortness of breath TECHNIQUE: XR Chest 2 Views COMPARISON: 7 FINDINGS: There is atherosclerotic calcification of the aortic arch with tortuosity. There are diffuse degenerative changes of the visualized thoracic spine. There is degenerative osteoarthritis of the bilateral shoulders. There is no demonstrated pleural abnormality. Healed left rib fracture. Acute 9th left lateral rib fracture. Normal size heart. Normal mediastinum and alfredo. Normal visualized pulmonary arteries. There is no demonstrated abnormality of the visualized soft tissue structures of the upper abdomen. RAD/Chest PA and Lateral IMPRESSION: Acute 9th left lateral rib fracture. Electronically Signed: Karl Campo MD at 14:48 EST ,
[2022-05-14 14:41] LABS: Hematocrit 37.7 % (40-54); Hemoglobin 12.7 g/dL (13.0-16.5); Mean Corp Hgb Conc 33.7 g/dL (32-36); Mean Corpuscular Hgb 36.7 pg (27.0-32.0); Mean Platelet Vol. 10.1 fl (6.2-12.0); Platelet Count 284 K/mm3 (150-450); Red Blood Count 3.46 M/mm3 (4.6-6.2); White Blood Count 5.6 K/mm3 (4.4-11.0)
[2022-05-14 14:52] LABS: D-Dimer Quantitative (DVT/PE) 0.52 FEU/ug/m (0.27-0.49)
[2022-05-14 15:14] LABS: BNP,B-Type NATRIURETIC PEPTIDE 126.6 pg/mL (0-100)
[2022-05-14 15:17] LABS: Anion Gap 5 (5-15); BUN 32 mg/dL (7-18); Calcium,Total 9.1 mg/dL (8.5-10.1); Chloride 105 mmol/L (98-107); Creatinine, Serum 1.78 mg/dL (0.70-1.30); EST Glomerular Filtration Rate 40 mL/min (>60); Est Glom Filt Rate - Afr Amer 49 mL/min (>60); Glucose 131 mg/dL (74-106); Potassium 4.7 mmol/L (3.5-5.1); Sodium Level 136 mmol/L (136-145)
== END | disposition home or self-care (01) ==
PROVIDERS: PCP Internal Medicine; Visit Provider Internal Medicine Cardiovascular Disease
DX: R06.02 Shortness of breath (principal); I48.0 Paroxysmal atrial fibrillation; Z86.718 Personal history of other venous thrombosis and embolism; E78.5 Hyperlipidemia, unspecified; I10 Essential (primary) hypertension
CPT/HCPCS: 36415; 71046; 80048; 83880; 85027; 85379

== ENCOUNTER → 2022-05-15 | Outpatient (CLI) | payer MEDICARE, BC, SELFPAY ==
--- NOTE | 2022-05-15 09:40 | VDLE_ITS ---
Reason For Study: Elevated D-dimer RIGHT LEFT GSV is normal. GSV is normal. CFV is compressible, spontaneous, phasic, CFV is compressible, spontaneous, phasic, competent and demonstrates normal competent, and demonstrates normal augmentation. augmentation. FV is compressible, spontaneous, phasic, FV is compressible, spontaneous, phasic, competent and demonstrates normal competent and demonstrates normal augmentation. augmentation. POP V is compressible, spontaneous, phasic, POP V is compressible, spontaneous, phasic, competent and demonstrates normal competent and demonstrates normal augmentation. augmentation. T/P Trunk is compressible. T/P Trunk is compressible. PTV is compressible. PTV is compressible. RT PerV is compressible. LT PerV is compressible. Procedure This is a venous duplex using B-mode, color flow and spectral Doppler. Exam performed in department. A preliminary report was called and/or faxed to Lud[facility]. VL/Venous Duplex US - Pal Extrem Interpretation Summary Deep veins of the bilateral lower extremities are patent and compressible segme ntally. There is no evidence of bilateral lower extremity deep vein thrombosis. The bilateral great saphenous veins appear patent and compressible segmentally. Ordering Physician: Jimmy Herrera Referring Physician: Nisha Carreno M.D. Performed By: Niurka Mcdonnell RVT
== END | disposition home or self-care (01) ==
LOC: CVS 09:39
PROVIDERS: PCP Internal Medicine; Visit Provider Internal Medicine Cardiovascular Disease
DX: R06.02 Shortness of breath (principal); R79.89 Other specified abnormal findings of blood chemistry; Z86.718 Personal history of other venous thrombosis and embolism
CPT/HCPCS: 93970

== ENCOUNTER → 2022-05-16 | Outpatient (CLI) | payer MEDICARE, BC, SELFPAY ==
--- NOTE | 2022-05-16 07:24 | US_ITS ---
HISTORY: Multiple liver hypodensities on Chest CTA. TECHNIQUE: Abdi scale and color doppler imaging was performed of the right upper quadrant. 96 images. COMPARISON: CTA 05/14/2022. FINDINGS: LIVER: 14.6 cm in length. Heterogeneous echotexture with multiple cysts measuring up to 1.8 cm. No intrahepatic ductal dilatation. COMMON BILE DUCT: 3 mm in diameter. GALLBLADDER: No gallstones or sludge. 2 mm wall thickness, within normal limits. No pericholecystic fluid. Sonographic Santos sign negative. PANCREAS: Partially obscured due to overlying bowel gas. RIGHT KIDNEY: 11.1 cm in length with a cortical thickness of 1.8 cm. No hydronephrosis or gross renal mass demonstrated. US/Abdomen Limited IMPRESSION: Hepatic steatosis with cysts measuring up to 1.8 cm. No sonographic evidence of cholelithiasis. Electronically Signed: Penny Lincoln MD at 8:04 EST ,
== END | disposition home or self-care (01) ==
LOC: US 07:23
PROVIDERS: PCP Internal Medicine; Visit Provider Internal Medicine Cardiovascular Disease
DX: R16.0 Hepatomegaly, not elsewhere classified (principal)
CPT/HCPCS: 76705

== ENCOUNTER → 2022-09-03 | Outpatient (CLI) | payer MEDICARE, BC, SELFPAY ==
--- NOTE | 2022-09-03 09:25 | US_ITS ---
STUDY: ABDOMINAL ULTRASOUND - RIGHT UPPER QUADRANT REASON FOR VISIT: Male, 72 years old fatty liver TECHNIQUE: Ultrasound evaluation of the right upper quadrant was performed with real-time and static brown-scale imaging. TECHNICAL QUALITY: Adequate. COMPARISON: Comparison is made with prior examination dated May 16, 2022. FINDINGS: Liver: The liver is enlarged and measures 18.7 cm. There is increased echogenicity consistent with fatty infiltration. The bile ducts are within normal limits. There is hepatic color flow. The direction of portal flow is hepatopetal. 2 cysts are seen in the left lobe of the liver. The larger cyst measures 2.1 cm x 2.2 cm x 1.9 cm. Gallbladder: Normal distended gallbladder. The gallbladder wall is slightly thickened and measures 3.8 mm. There is a negative sonographic Santos''s sign. There is no pericholecystic fluid. There are no gallstones. Common Bile Duct (C.B.D.): The common bile duct measures 3.6 mm. Pancreas: Normal size of the head, body and tail of the pancreas. There is normal echogenicity of the pancreas. There is no demonstrated pancreatic mass or cyst. Right Kidney: Normal size of the right kidney. The right kidney measures 12.4 cm x 5.7 cm x 4.8 cm. Normal renal cortex. The right cortex measures 1.5 cm. There is no demonstrated renal mass or cyst. There is no right hydronephrosis. US/Abdomen Limited IMPRESSION: Hepatomegaly and fatty infiltration of the liver. Cysts are seen in the left lobe of the liver. Mild thickening of the gallbladder wall. Electronically Signed: Srinivasan Baker MD at 15:46 EDT ,
--- NOTE | 2022-09-03 09:25 | US_ITS ---
STUDY: ABDOMINAL ULTRASOUND - ELASTOGRAPHY REASON FOR VISIT: Male, 72 years old. Fatty infiltration of the liver. Hepatomegaly. TECHNIQUE: Liver stiffness measurements were obtained on a [employer] RS 85 ultrasound machine using a CA 1-7 probe following the SRU guidelines. 3 measurements were obtained using a 2-D-SWE method. TheIQR/M was 23 % suggesting a quality data set. TECHNICAL QUALITY: Adequate. COMPARISON: Comparison is made with prior sonogram done earlier today. FINDINGS: Liver: Fatty infiltration of the liver. Median liver stiffness measured 13.3 kPa. Abdomen: There is no demonstrated mass lesion. US/Elastography Parenchyma/Organ IMPRESSION: Liver stiffness measures 13.3 kPa compatible with F3-F4 (Moderate to severe liver fibrosis) Metavir score. Electronically Signed: Srinivasan Baker MD at 15:48 EDT ,
== END | disposition home or self-care (01) ==
LOC: US 09:24
PROVIDERS: PCP Internal Medicine; Referring Provider Nurse Practitioner Adult Health; Visit Provider Nurse Practitioner Adult Health
DX: K76.0 Fatty (change of) liver, not elsewhere classified (principal)
CPT/HCPCS: 76705; 76981

== ENCOUNTER → 2022-09-12 | Outpatient (CLI) | payer MEDICARE, BC, SELFPAY ==
[2022-09-12 09:38] LABS: Erythrocyte Sedimentation Rate 30 mm/hr (0-20)
[2022-09-12 09:40] LABS: Absolute Lymphocyte Count 1.81 X10^3/uL (0.83-4.51); Absolute Neutrophil Count 1.9 X10^3/uL (2.0-7.7); Basophil# 0.01 X10^3/uL; Basophil% 0.2 % (0-1); Eosinophil# 0.22 X10^3/uL; Eosinophils% 5.3 % (0-5); Hemoglobin 11.8 g/dL (13.0-16.5); Lymphocyte # 1.81 X10^3/ul (0.83-4.51); Lymphocyte % 43.7 % (19-41); Mean Corp Hgb Conc 33.7 g/dL (32-36); Mean Corpuscular Hgb 39.1 pg (27.0-32.0); Mean Corpuscular Volume 115.9 fL (80-94); Mean Platelet Vol. 10.4 fl (6.2-12.0); Monocyte# 0.16 X10^3/uL; Monocyte% 3.9 % (0-10); NRBC Flagged by Analyzer 0 % (0-5); Neutrophil # 1.91 X10^3/uL (2.7-7.7); Neutrophil % 46.2 % (47-70); Platelet Count 254 K/mm3 (150-450); RBC Distribution Width CV 13.9 % (11.6-14.6); RBC Distribution Width SD 60.2 fl (35.1-43.9); Red Blood Count 3.02 M/mm3 (4.6-6.2); White Blood Count 4.1 K/mm3 (4.4-11.0)
[2022-09-12 09:41] LABS: Prothrombin Time (Protime)PT. 13.2 SECONDS (11.7-14.9)
[2022-09-12 10:07] LABS: Cholesterol 189 mg/dL (200); High Density Lipoprotein 45 mg/dL; Triglycerides 161 mg/dL; Very Low Density Lipoprotein 32 mg/dL (5-40)
[2022-09-12 10:40] LABS: ALB/GLOB Ratio 1.1 RATIO (0.9-2.4); AST(SGOT) 27 U/L (15-37); Alanine Aminotransfer ALT/SGPT 44 U/L (16-61); Albumin, Serum 4.1 g/dL (3.2-5.0); Alkaline Phosphatase 63 U/L (45-117); Anion Gap 8 (5-15); BUN 32 mg/dL (7-18); BUN/Creat Ratio 25.8 RATIO (10-20); CRP < 2.90 mg/L (0.0-3.0); Calcium,Total 8.9 mg/dL (8.5-10.1); Chloride 107 mmol/L (98-107); Creatinine, Serum 1.24 mg/dL (0.70-1.30); EST Glomerular Filtration Rate 61 mL/min (>60); Est Glom Filt Rate - Afr Amer 74 mL/min (>60); Ferritin 930 ng/mL (26-388); Globulin 3.6 g/dL (2.2-4.2); Glucose 118 mg/dL (74-106); LDH 200 U/L (87-241); Potassium 4.2 mmol/L (3.5-5.1); Protein, Total 7.7 g/dL (6.4-8.2); Sodium Level 139 mmol/L (136-145)
[2022-09-13 14:09] LABS: Anti-Centromere B Ab <0.2 AI (0.0-0.9); Anti-Chromatin <0.2 AI (0.0-0.9); Anti-Jo <0.2 AI (0.0-0.9); Anti-Mitochondrial AB <20.0 Units (0.0-20.0); Anti-Scleroderma-70 AB <0.2 AI (0.0-0.9); Anti-dsDNA Ab <1 IU/mL (0-9); RNP Ab 0.3 AI (0.0-0.9); SJOGREN'S Anti-SS-A test < 0.2 AI (0.0-0.9); SJOGREN'S Anti-SS-B test < 0.2 AI (0.0-0.9); Smith Ab <0.2 AI (0.0-0.9)
[2022-09-14 20:08] LABS: Angiotensin Convert Enzyme 82 U/L (14-82); Anti-Smooth Muscle ABS 5 Units (0-19); Ceruloplasmin 21.9 mg/dL (16.0-31.0); Copper, Serum or Plasma 91 ug/dL (69-132); Cytoplasmic Ab (C-ANCA) <1:20 titer (Neg:<1:20); Haptoglobin 136 mg/dL (34-355); Perinuclear Ab (P-ANCA) <1:20 titer (Neg:<1:20)
== END | disposition home or self-care (01) ==
LOC: LAB 08:26
PROVIDERS: Internal Medicine Cardiovascular Disease; PCP Internal Medicine; Referring Provider Nurse Practitioner Adult Health; Visit Provider Nurse Practitioner Adult Health
DX: K76.0 Fatty (change of) liver, not elsewhere classified (principal); K76.89 Other specified diseases of liver; E78.00 Pure hypercholesterolemia, unspecified
CPT/HCPCS: 36415; 80053; 80061; 82140; 82164; 82390; 82525; 82728; 83010; 83516; 83615; 85025; 85610; 85652; 86140; 86225; 86235; 86256

== ENCOUNTER → 2022-10-30 | Outpatient (CLI) | payer MEDICARE, BC, SELFPAY ==
[2022-10-30 10:23] LABS: Absolute Lymphocyte Count 1.44 X10^3/uL (0.83-4.51); Basophil# 0.01 X10^3/uL; Basophil% 0.3 % (0-1); Eosinophils% 5.2 % (0-5); Hematocrit 33.2 % (40-54); Hemoglobin 10.9 g/dL (13.0-16.5); Lymphocyte # 1.44 X10^3/ul (0.83-4.51); Lymphocyte % 37.8 % (19-41); Mean Corp Hgb Conc 32.8 g/dL (32-36); Mean Corpuscular Hgb 38.5 pg (27.0-32.0); Mean Corpuscular Volume 117.3 fL (80-94); Monocyte# 0.18 X10^3/uL; Monocyte% 4.7 % (0-10); NRBC Flagged by Analyzer 0 % (0-5); Neutrophil # 1.95 X10^3/uL (2.7-7.7); Neutrophil % 51.2 % (47-70); POSITIVE MORPHOLOGY YES; Platelet Count 267 K/mm3 (150-450); RBC Distribution Width CV 13.9 % (11.6-14.6); RBC Distribution Width SD 60.4 fl (35.1-43.9); Red Blood Count 2.83 M/mm3 (4.6-6.2); White Blood Count 3.8 K/mm3 (4.4-11.0)
[2022-10-30 10:26] LABS: Differential Indicated SCAN CRITERIA MET
[2022-10-30 10:55] LABS: Differential Comment SCANNED; Iron 157 ug/dL (65-175); Iron Binding Capacity,Total 377 ug/dL (250-450); PERCENT IRON SATURATION 41.6 % (15.0-55.0)
[2022-10-30 10:58] LABS: Thyroid Stim Hormone (TSH) 3.74 uIU/mL (0.358-3.74)
== END | disposition home or self-care (01) ==
LOC: LAB 09:32
PROVIDERS: Nurse Practitioner Adult Health; PCP Internal Medicine; Referring Provider Physician Assistant Medical; Visit Provider Physician Assistant Medical
DX: D64.9 Anemia, unspecified (principal); E78.5 Hyperlipidemia, unspecified
CPT/HCPCS: 36415; 83540; 83550; 84443; 85025

== ENCOUNTER → 2022-11-08 | Outpatient (CLI) | payer MEDICARE, BC, SELFPAY ==
--- NOTE | 2022-11-08 08:34 | ECHOD_ITS ---
Reason For Study: OTHER SPECIFIED POSTPROCEDURAL STATES Procedure This was a 2D Doppler, Color Flow transthoracic echocardiogram. Exam performed in department. Left Ventricle Normal LV size. Left ventricular systolic function is normal. The estimated ejection fraction is 55 %. No regional wall motion abnormalities noted. Right Ventricle Normal RV size. Normal systolic function. Atria Normal left atrium. Normal right atrium. Mitral Valve Normal mitral valve. Mild-Moderate (1-2+) eccentric mitral valve insufficiency. Tricuspid Valve Normal tricuspid valve. Mild (1+) tricuspid valve insufficiency. Pulmonary artery systolic pressure is 38 mmHg. Aortic Valve Trisinus/trileaflet aortic valve. Pulmonic Valve Normal pulmonic valve. Great Vessels Normal aortic root. The pulmonary artery is normal size. Normal inferior vena cava. Pericardium/Pleural No pericardial effusion. MMode/2D Measurements & Calculations LVIDd: 5.3 cm IVSd: 0.98 cm Ao root diam: 3.5 cm LVIDs: 3.3 cm LVPWd: 1.0 cm RVDd: 3.4 cm FS: 37.5 % LAV(MOD-bp): 63.7 ml LA A4 area: 20.2 cm2 LA dimension(2D): 4.5 cm LAV(MOD-bp) Indexed: 27.9 ml/m2 LAV(MOD-sp2): 64.7 ml LAV(MOD-sp4): 60.0 ml RA A4 area: 16.5 cm2 Doppler Measurements & Calculations MV E max taylor: 116.2 cm/sec Ao V2 max: 117.2 cm/sec LV V1 max: 81.9 cm/sec Ao max P.5 mmHg LV V1 max P.7 mmHg Ao V2 mean: 79.8 cm/sec LV V1 mean P.6 mmHg Ao mean P.8 mmHg LV V1 mean: 59.9 cm/sec Ao V2 VTI: 19.6 cm LV V1 VTI: 15.0 cm AV (velocity ratio): 0.76 MR max taylor: 531.8 cm/sec PA V2 max: 148.6 cm/sec TR max taylor: 287.3 cm/sec MR max P.2 mmHg PA V2 mean: 115.8 cm/sec TR max P.0 mmHg MR mean taylor: 426.9 cm/sec MR mean P.4 mmHg MR VTI: 163.3 cm ECHO/Echo Complete Interpretation Summary Normal LV size. Left ventricular systolic function is normal. The estimated ejection fraction is 55 %. Mild-Moderate (1-2+) eccentric mitral valve insufficiency. Mild (1+) tricuspid valve insufficiency. Ordering Physician: Ludivina Bianchi Referring Physician: Nisha Carreno Performed By: Ginger Baeza, LIBBYCS, RVT
[2022-11-08 10:52] LABS: Anion Gap 5 (5-15); BUN 23 mg/dL (7-18); BUN/Creat Ratio 19.3 RATIO (10-20); Calcium,Total 9.2 mg/dL (8.5-10.1); Chloride 109 mmol/L (98-107); Creatinine, Serum 1.19 mg/dL (0.70-1.30); EST Glomerular Filtration Rate 64 mL/min (>60); Est Glom Filt Rate - Afr Amer 77 mL/min (>60); Glucose 109 mg/dL (74-106); Potassium 4.4 mmol/L (3.5-5.1); Sodium Level 139 mmol/L (136-145)
== END | disposition home or self-care (01) ==
PROVIDERS: PCP Internal Medicine; Referring Provider Physician Assistant Medical; Visit Provider Physician Assistant Medical
DX: I48.19 Other persistent atrial fibrillation (principal); Z98.890 Other specified postprocedural states
CPT/HCPCS: 36415; 80048; 93306

== ENCOUNTER → 2022-11-09 | Outpatient (CLI) | payer MEDICARE, BC, SELFPAY | END | disposition home or self-care (01) | PROVIDERS: PCP Internal Medicine; Referring Provider Physician Assistant Medical; Visit Provider Physician Assistant Medical | DX: I48.19 Other persistent atrial fibrillation (principal); D64.9 Anemia, unspecified | CPT/HCPCS: 82274 ==

== ENCOUNTER → 2022-11-20 | Outpatient (CLI) | payer MEDICARE, BC, SELFPAY ==
[2022-11-20 10:13] LABS: International Normalized Ratio 1.3; Prothrombin Time (Protime)PT. 16.1 SECONDS (11.7-14.9)
[2022-11-20 10:40] LABS: Vitamin B12 1224 pg/mL (211-911)
[2022-11-20 11:47] LABS: ALB/GLOB Ratio 1.1 RATIO (0.9-2.4); AST(SGOT) 19 U/L (15-37); Alanine Aminotransfer ALT/SGPT 30 U/L (16-61); Albumin, Serum 3.8 g/dL (3.2-5.0); Alkaline Phosphatase 61 U/L (45-117); Anion Gap 6 (5-15); BUN 26 mg/dL (7-18); BUN/Creat Ratio 21.7 RATIO (10-20); Chloride 112 mmol/L (98-107); EST Glomerular Filtration Rate 63 mL/min (>60); Est Glom Filt Rate - Afr Amer 77 mL/min (>60); Globulin 3.5 g/dL (2.2-4.2); Glucose 105 mg/dL (74-106); Iron 141 ug/dL (65-175); Iron Binding Capacity,Total 337 ug/dL (250-450); PERCENT IRON SATURATION 41.8 % (15.0-55.0); Potassium 4.4 mmol/L (3.5-5.1); Protein, Total 7.3 g/dL (6.4-8.2); Sodium Level 141 mmol/L (136-145); Thyroid Stim Hormone (TSH) 3.31 uIU/mL (0.358-3.74)
[2022-11-24 07:07] LABS: Anti-Parietal Cell AB, QN 1.8 Units (0.0-20.0); Transferrin 264 mg/dL (177-329)
== END | disposition home or self-care (01) ==
PROVIDERS: PCP Internal Medicine; Referring Provider Internal Medicine Gastroenterology; Visit Provider Internal Medicine Gastroenterology
DX: D64.9 Anemia, unspecified (principal); I48.0 Paroxysmal atrial fibrillation; K76.0 Fatty (change of) liver, not elsewhere classified; K76.89 Other specified diseases of liver; Z98.890 Other specified postprocedural states
CPT/HCPCS: 36415; 80053; 82607; 82746; 83516; 83540; 83550; 84443; 84466; 85610; 86340

== ENCOUNTER → 2022-11-29 | Day surgery (SDC) | payer MEDICARE, BC, SELFPAY ==
[2022-11-28 07:13] VITALS: BMI 33.6
--- NOTE | 2022-11-29 11:15 | PCM.OP.PRO ---
Procedure Report Date of Procedure: 11/29/22 DC cardioversion. 72-year-old man with a history of atrial fibrillation symptomatic. Patient has been on therapeutic anticoagulation. The patient was seen by Dr. Ham of the critical care division. Informed consent was obtained. Anterior-posterior pads were applied. 60 mg of intravenous propofol was then administered and after that 300 J of biphasic DC cardioversion energy were applied with prompt reversal to sinus rhythm. EKG confirmed the above. Patient tolerated the procedure well. Conclusion: Successful DC cardioversion from atrial fibrillation to sinus rhythm. Follow-up as per office protocol.
--- NOTE | 2022-11-29 15:39 | PRO.PCM_ITS ---
Procedure Report Date of Procedure: 11/29/22 CONSCIOUS SEDATION REPORT BRIEF HISTORY OF PRESENT ILLNESS: The patient is a 72-year-old male who presented to [facility] for an elective outpatient cardioversion due to underlying atrial fibrillation. The patient reports no PO intake since midnight, but is currently therapeutic on anticoagulation. The patient does have a history of FATIMAH, but is not compliant with therapy. The patient reports no history of smoking or COPD. The patient denies any recent constitutional symptoms such as fevers, chills, nausea or vomiting. The patient denies previous applicable anesthetic complications. Patient's last known ejection fraction was 55% PHYSICAL EXAMINATION: VITAL SIGNS: Reviewed and were acceptable. GENERAL: The patient is a male, in no apparent distress, speaking in full sentences. HEENT: Normocephalic, atraumatic. Mucous membranes are moist and pink. Good mouth opening noted. Trachea is midline. Good neck mobility. MP IV CHEST: S1, S2 irregularly irregular. No murmurs, rubs or gallops were noted. LUNGS: Clear to auscultation bilaterally without appreciable wheezes, rales or rhonchi. ABDOMEN: Soft, nontender, nondistended. Positive bowel sounds. EXTREMITIES: There is no clubbing, cyanosis or edema. ASA Class: II DESCRIPTION OF PROCEDURE: After confirmation of informed consent, the patient's anesthesia plan was reviewed in detail. Propofol was chosen. Risks and benefits were reviewed and the patient agreed to proceed. At 11:04 AM, the patient was given 40 mg of propofol. The patient required a total of 60 mg of propofol throughout the procedure to achieve appropriate sedation. The patient achieved an appropriate level of sedation and received 1 attempt synchronized cardioversion, at [address] Allen at the bedside. This was successful in achieving normal sinus rhythm. The patient was monitored until 11:18 AM, at which time the patient reached their baseline mental status and function. The patient tolerated the procedure well. COMPLICATIONS: None ESTIMATED BLOOD LOSS: None RECOMMENDATIONS: Okay to recover in usual fashion. Procedures Pulmonary 9xxxx: [id number] Con Sedation
== END | disposition home or self-care (01) ==
PROVIDERS: PCP Internal Medicine; Referring Provider Internal Medicine Cardiovascular Disease; Visit Provider Internal Medicine Cardiovascular Disease
DX: I48.19 Other persistent atrial fibrillation (principal); Z79.01 Long term (current) use of anticoagulants; G47.33 Obstructive sleep apnea (adult) (pediatric); I10 Essential (primary) hypertension; E78.5 Hyperlipidemia, unspecified; R42 Dizziness and giddiness; Z82.49 Family history of ischemic heart disease and other diseases of the circulatory system
CPT/HCPCS: 92960; 93005; J7040

== ENCOUNTER → 2023-03-18 | Outpatient (CLI) | payer MEDICARE, BC, SELFPAY ==
--- NOTE | 2023-03-18 07:14 | MRI_ITS ---
MRI Abdomen w/ and w/out contrast 03/18/2023 7:43 AM COMPARISON: CT 05/14/2022 CLINICAL HISTORY: hyperferritenemia TECHNIQUE: Multiplanar T1 and T2 weighted, diffusion and dynamic post-gadolinium images were obtained through the abdomen before and after administration of 20 cc of IV Clariscan. FINDINGS: Liver: Slight increase in in intensity on T1 opposed phase images compared to T1 in phase images which can be seen in hemochromatosis. There is moderate diffuse decreased signal on T2-weighted images. Benign simple cysts in the left hepatic lobe. Gallbladder: Unremarkable Pancreas: Unremarkable Spleen: Moderate diffuse decreased signal on T2-weighted images. Adrenal Glands: Unremarkable Kidneys: Unremarkable GI Tract: Unremarkable Lymphadenopathy: Absent Ascites: Absent Bones: No suspicious lesions MRI/MRI Abd WITH and W/O Contrast IMPRESSION: Findings most consistent with secondary hemochromatosis. Electronically Signed: Shawn Carreno MD at 22:04 EST ,
[2023-03-18 07:47] LABS: CREATININE FINGERSTICK 1.1 mg/dL (0.70-1.30); EGFR FINGERSTICK > 60.0000 mL/min (>60)
== END | disposition home or self-care (01) ==
LOC: MRI 07:10
PROVIDERS: PCP Internal Medicine; Referring Provider Internal Medicine Gastroenterology; Visit Provider Internal Medicine Gastroenterology
DX: K76.0 Fatty (change of) liver, not elsewhere classified (principal)
CPT/HCPCS: 74183; A9575; A4216

== ENCOUNTER 2023-04-05 18:48 | Inpatient (IN) | payer MEDICARE, BC, SELFPAY ==
[2023-04-05] VITALS (9 sets, daily range): BP systolic 110–139; BP diastolic 52–102; PULSE 53–63; RESP 17–23; TEMP 35.9–36.7; O2SAT 92–100; BMI 39.9; BMI 36.6
--- NOTE | 2023-04-05 19:00 | EKG12_ITS ---
Test Reason : RANYD Blood Pressure : / mmHG Vent. Rate : 068 BPM Atrial Rate : 068 BPM P-R Int : 000 ms QRS Dur : 128 ms QT Int : 430 ms P-R-T Axes : 000 114 050 degrees QTc Int : 457 ms Atrial fibrillation Right bundle branch block Abnormal ECG Confirmed by JOHN HANDY, IKE ([id number]), managing editor BOBY LAMAR ([id number]) on 04/07/2023 12:09:40 PM Referred By: Confirmed By:IKE LOPEZ MD
--- NOTE | 2023-04-05 19:03 | EDS_ITS ---
HPI <AWA Pillai - Last Filed: 04/05/23 20:08> History of Present Illness Chief Complaint: Hypotension Narrative Narrative: 72-year-old male with PMH of HTN, HLD, A-fib on Eliquis states sometime around 3:00 pm he started to feel lightheaded and short of breath. His friend checked his pulse and noted it was low. He felt lightheaded and dropped to his knee but did not pass out. No chest pain. Paramedics noted he was cardiac and hypotensive and administered atropine 0.5 mg and his vitals have improved. He states he is feeling improved. He was placed on oxygen for comfort; he does not wear home oxygen. He states about 3 months ago he went into A-fib and was cardioverted and since then thinks he has been in normal sinus rhythm. He is compliant with Eliquis. PFSH <AWA Pillai - Last Filed: 04/05/23 20:08> [facility] Medical History Abnormal stress test Essential hypertension History of DVT (deep vein thrombosis) History of DVT (deep vein thrombosis) History of left heart catheterization (LHC) (~04/23/19) History of pulmonary embolism Hyperlipemia Paroxysmal atrial fibrillation Persistent atrial fibrillation Premature ventricular contraction Sleep apnea Home Medications aspirin 81 mg tablet,delayed release (Adult Low Dose Aspirin) 81 mg PO DAILY 02/11/18 [History Last Taken 04/05/23] multivitamin 1 tab PO DAILY 02/11/18 [History Last Taken 04/05/23] valsartan 320 mg tablet (Diovan) 320 mg PO DAILY #90 tabs 10/08/22 [Rx Last Taken 04/05/23] apixaban 5 mg tablet (Eliquis) 5 mg PO BID #60 tabs 11/20/22 [Rx Last Taken 04/05/23] diltiazem HCl 180 mg capsule,extended release 24 hr (Cardizem CD) 180 mg PO BID #180 caps 03/11/23 [Rx Last Taken 04/05/23] flecainide 150 mg tablet 150 mg PO BID #180 tabs 03/11/23 [Rx Last Taken 04/05/23] pravastatin 40 mg tablet 40 mg PO DAILY #90 tabs 03/17/23 [Rx Last Taken 04/04/23] vitamin B complex (B Complex-Vitamin B12 tablet) 1 tab PO DAILY 04/05/23 [History Last Taken 04/05/23] Allergy/AdvReac Type Severity Reaction Status Date / Time No Known Allergies Allergy Verified 04/05/23 18:51 Family History Father Myocardial infarction, Onset Age: 48 Hypertension Sister Atrial fibrillation Surgical History History of right hip replacement Social History Smoking Status: Never smoker alcohol intake: current details: occasional substance use type: does not use ROS <AWA Pillai - Last Filed: 04/05/23 20:08> ROS ED ROS Narrative Constitutional: Negative for fever, chills, malaise. CVS: Negative for chest pain, syncope. Respiratory: Positive for shortness of breath. Negative for cough. GI: Negative for abdominal pain, nausea, vomiting, melena, hematochezia. Neuro: Negative for headache. EXAM <AWA Pillai - Last Filed: 04/05/23 20:08> Physical Exam Narrative Exam Narrative: CONST: Patient sitting in no acute distress. EYES: Normal inspection. NECK: Normal inspection. RESP: No respiratory distress, CTAB. CVS: Regular rate and rhythm, no murmur, no gallop. ABD: Soft and nontender, no guarding or rebound, nondistended. SKIN: Color normal, no rash, warm, dry, intact. EXTREMITIES: Normal appearance, no pedal edema. NEURO: Oriented x4. PSYCH: Normal affect. Const Vital Signs: 04/05/23 18:51 04/05/23 18:58 04/05/23 19:00 Temperature 96.6 F L Temperature Source Temporal Pulse Rate 61 Respiratory Rate 18 Respiratory Effort Normal Non-Labored Normal Non-Labored Respiratory Pattern Normal Normal Blood Pressure 110/57 L Blood Pressure Mean 74 Pulse Ox 100 Oxygen Delivery Method Nasal Cannula Oxygen Flow Rate (L/min) 2 <Dr. Kleber Freeman DO - Last Filed: 04/05/23 20:39> Physical Exam Const Vital Signs: 04/05/23 18:51 04/05/23 18:58 04/05/23 19:00 Temperature 96.6 F L Temperature Source Temporal Pulse Rate 61 Respiratory Rate 18 Respiratory Effort Normal Non-Labored Normal Non-Labored Respiratory Pattern Normal Normal Blood Pressure 110/57 L Blood Pressure Mean 74 Pulse Ox 100 Oxygen Delivery Method Nasal Cannula Oxygen Flow Rate (L/min) 2 MDM <AWA Pillai - Last Filed: 04/05/23 20:08> [facility] Narrative Medical decision making narrative: History gathered from: Patient, family, paramedics Patient felt lightheaded and short of breath was found to be hypotensive and br adycardic squad EKG showed sinus bradycardia 30 bpm with no notable P waves. Administered atropine 0.5 mg prior to arrival and here he has BP of 110/57 and heart rate in the 60s. It does not look sinuses are no P waves present. Labs show macrocytic anemia with hemoglobin of 6.4. Prior level was 10.9 in October. He states he saw Dr. Monte and had a normal Cologuard test but is being sent to a liver specialist but does not know the details. Hemoccult in ED is negative. Regarding the rest of his blood work sodium is 132, BUN 32, creatinine 2.0 (baseline 1.2). Troponin is 11. CXR shows no acute process. Differential includes sick sinus syndrome, acute anemia causing arrhythmia, GI bleed among others. He was ordered 2 units PRBCs. Case was discussed with the hospitalist for admission. Although he remains hemodynamically stable here concern is its only been an hour since atropine and he will need close monitoring so he is admitted to the ICU. Lab Data Attestation: I reviewed the patient's lab results. Labs: Laboratory Results - last 24 hr 04/05/23 04/05/23 19:03 19:55 WBC 8.8 RBC 1.63 L Hgb 6.4 L Hct 20.1 L MCV 123.3 H MCH 39.3 H MCHC 31.8 L RDW Std Deviation 69.2 H RDW Coeff of Dilan 15.4 H Plt Count 179 MPV 11.1 Neut % (Auto) Not Reportable Absolute Neuts (auto) 6.1 Absolute Lymphs (auto) 2.10 Total Counted 100 Neutrophils % (Manual) 69 Band Neutrophils % 1 Lymphocytes % (Manual) 24 Eosinophils % (Manual) 2 Basophils % (Manual) 1 Metamyelocytes % 1 Myelocytes % 2 H Diff Path Review May foll Platelet Estimate ADEQUATE Polychromasia RARE Hypochromasia 1+ Anisocytosis 1+ Macrocytosis 1+ Ovalocytes RARE Sodium 132 L Potassium 4.6 Chloride 102 Carbon Dioxide 21.0 Anion Gap 9 BUN 32 H Creatinine 2.00 H Estim Creat Clear Calc 36.08 Est GFR (MDRD) Af Amer 43 L Est GFR (MDRD) Non-Af 35 L BUN/Creatinine Ratio 16.0 Glucose 105 Calcium 8.1 L Troponin I High Sens 11 Crossmatch See Detail Radiography Diagnostic Testing: Clinical Impression(s) from Imaging Studies Chest X-Ray 04/05/23 19:05 IMPRESSION: No radiographic evidence of acute cardiopulmonary disease. Electronically Signed: Cameron Cody MD at 19:50 EST , ED attending interpretation of 1-view chest x-ray shows normal heart size, no acute infiltrate, edema, or effusion. <Dr. Kleber Freeman, DO - Last Filed: 04/05/23 20:39> [facility] MDM Narrative Medical decision making narrative: History gathered from: Patient, family, paramedics Patient felt lightheaded and short of breath was found to be hypotensive and bradycardic squad EKG showed sinus bradycardia 30 bpm with no notable P waves. Administered atropine 0.5 mg prior to arrival and here he has BP of 110/57 and heart rate in the 60s. It does not look sinuses are no P waves present. Labs show macrocytic anemia with hemoglobin of 6.4. Prior level was 10.9 in October. He states he saw Dr. Monte and had a normal Cologuard test but is being sent to a liver specialist but does not know the details. Hemoccult in ED is negative. Regarding the rest of his blood work sodium is 132, BUN 32, creatinine 2.0 (baseline 1.2). Troponin is 11. CXR shows no acute process. Differential includes sick sinus syndrome, acute anemia causing arrhythmia, GI bleed among others. He was ordered 2 units PRBCs. Case was discussed with the hospitalist for admission. Although he remains hemodynamically stable here concern is its only been an hour since atropine and he will need close monitoring so he is admitted to the ICU. I have personally performed a face to face assessment of the patient and have reviewed the [place] Note. I performed a substantive portion of the visit including all aspects of the following. My burnette findings include: History is history of atrial fibrillation status post cardioversion by almost 3 months. He is maintained on flecainide and diltiazem and is on blood thinners. He states that during the [employer] game today towards the end of the he began to feel some shortness of breath. He felt very lightheaded and weak. Short of breath. EMS arrived she noticed a bradycardic rhythm in the 30s. They were able to transmit it to us. They noted that he was hypotensive in the 70s systolic. They administered atropine which improved heart rate and blood pressure. Patient denies any recent dosing in the cardiac medications. Urine Exam is obese male sitting in the bed. He seems mildly tachypneic at rest. Irregular the irregular heart rhythm Medical Decison Making patient is significantly anemic at 6.4. MCV of 123.3. This certainly will contribute to dyspnea and could affect his cardiac rhythm. He could also be in need of change in medication dosing but would first optimize the anemia. We talked out the possibility of eventually maybe needing a pacemaker if everything was refractory. Plan is admission to the hospital. No evidence of ACS at the current time. Lab Data Labs: Laboratory Results - last 24 hr 04/05/23 04/05/23 19:03 19:55 WBC 8.8 RBC 1.63 L Hgb 6.4 L Hct 20.1 L MCV 123.3 H MCH 39.3 H MCHC 31.8 L RDW Std Deviation 69.2 H RDW Coeff of Dilan 15.4 H Plt Count 179 MPV 11.1 Neut % (Auto) Not Reportable Absolute Neuts (auto) 6.1 Absolute Lymphs (auto) 2.10 Total Counted 100 Neutrophils % (Manual) 69 Band Neutrophils % 1 Lymphocytes % (Manual) 24 Eosinophils % (Manual) 2 Basophils % (Manual) 1 Metamyelocytes % 1 Myelocytes % 2 H Diff Path Review May foll Platelet Estimate ADEQUATE Polychromasia RARE Hypochromasia 1+ Anisocytosis 1+ Macrocytosis 1+ Ovalocytes RARE Sodium 132 L Potassium 4.6 Chloride 102 Carbon Dioxide 21.0 Anion Gap 9 BUN 32 H Creatinine 2.00 H Estim Creat Clear Calc 36.08 Est GFR (MDRD) Af Amer 43 L Est GFR (MDRD) Non-Af 35 L BUN/Creatinine Ratio 16.0 Glucose 105 Calcium 8.1 L Troponin I High Sens 11 Crossmatch See Detail Radiography Diagnostic Testing: Clinical Impression(s) from Imaging Studies Chest X-Ray 04/05/23 19:05 IMPRESSION: No radiographic evidence of acute cardiopulmonary disease. Electronically Signed: Cameron Cody MD at 19:50 EST , Management Discussion w/another healthcare provider: Hospitalist (Dr. Rowan) Discharge Plan Triage Chief Complaint: Hypotension ED Midlevel Provider: Valeria Haq ED Provider: Kleber Freeman Dx/Rx/DC Orders Clinical Impression: Acute kidney injury, Anemia requiring transfusions, Arrhythmia, Chronic anemia Primary Care Provider: Nisha Carreno
--- NOTE | 2023-04-05 19:05 | RAD_ITS ---
EXAM: XR CHEST, 1 VIEW CLINICAL INDICATION: dyspnea TECHNIQUE: Frontal view of the chest. COMPARISON: 05/14/2022 FINDINGS: LUNGS AND PLEURAL SPACES: Unremarkable. No consolidation or edema. No pneumothorax. No effusion. HEART: Unremarkable. Cardiac silhouette not enlarged. MEDIASTINUM: Central airways and mediastinal contour are unremarkable. BONES/JOINTS: Unremarkable. No acute fracture. SOFT TISSUES: Unremarkable. RAD/Chest 1 View (Portable) IMPRESSION: No radiographic evidence of acute cardiopulmonary disease. Electronically Signed: Cameron Cody MD at 19:50 EST ,
[2023-04-05] MEDS: 0.9% Normal Saline (1000mL) 1,000 ML 999 ML IV (19:08)
[2023-04-05 19:11] LABS: Hematocrit 20.1 % (40-54); Hemoglobin 6.4 g/dL (13.0-16.5); Mean Corp Hgb Conc 31.8 g/dL (32-36); Mean Corpuscular Hgb 39.3 pg (27.0-32.0); Mean Corpuscular Volume 123.3 fL (80-94); Mean Platelet Vol. 11.1 fl (6.2-12.0); POSITIVE COUNT YES; POSITIVE MORPHOLOGY YES; Platelet Count 179 K/mm3 (150-450); RBC Distribution Width CV 15.4 % (11.6-14.6); RBC Distribution Width SD 69.2 fl (35.1-43.9); Red Blood Count 1.63 M/mm3 (4.6-6.2); White Blood Count 8.8 K/mm3 (4.4-11.0)
[2023-04-05 19:13] LABS: Differential Indicated MANUAL DIFF
[2023-04-05 19:26] LABS: Basophil 1 % (0-1); Eosinophil 2 % (0-5); Lymphocyte 24 % (19-41); Metamyelocyte 1 % (0-1); Myelocyte 2 % (0-0); Neutrophil-Band 1 % (0-5); Neutrophil-Segmented 69 % (47-70); Total Cells Counted 100 (MANUAL DIFF)
[2023-04-05 19:28] LABS: Anisocytosis 1+; Hypochromasia 1+; Macrocytosis 1+; Platelet Estimate ADEQUATE (ADEQ); Polychromasia RARE
[2023-04-05 19:29] LABS: Ovalocyte RARE
[2023-04-05 19:30] LABS: Anion Gap 9 (5-15); BUN 32 mg/dL (7-18); Calcium,Total 8.1 mg/dL (8.5-10.1); Chloride 102 mmol/L (98-107); EST Glomerular Filtration Rate 35 mL/min (>60); Est Glom Filt Rate - Afr Amer 43 mL/min (>60); Estimated Creatinine Clearance 36.08 ml/min; Glucose 105 mg/dL (74-106); Potassium 4.6 mmol/L (3.5-5.1); Sodium Level 132 mmol/L (136-145); Troponin-I HS 11 pg/mL (3.0-78.0)
[2023-04-05 19:32] LABS: Absolute Neutrophil Count 6.1 X10^3/uL (2.0-7.7)
--- NOTE | 2023-04-05 19:51 | PCM.HP.STD ---
[facility] - General General Date of Admission: 04/05/23 Date of Service: 04/05/23 Chief Complaint: Lightheadedness and shortness of breath HPI Narrative DELICIA SHEA, is a 72 M with a past medical history of essential hypertension, hyperlipidemia, morbid obesity; with BMI of 40 this admission, obstructive sleep apnea, nonalcoholic fatty liver disease, history of DVT/PE, history of left heart catheterization (2018) and paroxysmal atrial fibrillation; on flecainide, diltiazem, aspirin and Eliquis who presents to [facility] ER complaining of lightheadedness and shortness of breath. Mr. Shea reports his symptoms began approximately 3 PM after the [facility] football game with the abrupt onset of lightheadedness that caused him to drop to 1 knee but he did not lose consciousness. His friend then checked his pulse and noted it was low in the ~30 bpm range and EMS was then activated with patient confirmed to be hypotensive and bradycardiac with no notable P-waves. He was then administered atropine in the field and he felt somewhat improved with a blood pressure in the 90 mmHg systolic range and a heart rate in the 50 to 60 bpm range. He recently has been seen by Dr. Monte of the of gastroenterology and had a normal Cologuard test and was sent to a liver specialist about his NAFLD, but he is not sure of the details. He denies associated fever, chills, nausea, vomiting, diarrhea, recent blood loss of any kind or obvious blood in his urine or stools or similar previous episodes but he does admit to just recently starting his Eliquis 3 to 4 months ago. He also admitted that he drinks several beers with a few shots of whiskey during the course of the football game which is apparently typical for him though he denies a history of alcoholism. I also spoke with his daughter and his (Beba: [phone]) at the bedside in the ER and they help to augment the history. In the ER he was noted to have a hemoglobin of 6.4 g/dL present on admission (down from 10.9 g/dL in October) with a negative Hemoccult this admission consistent with suspected bfzby-vh-vwvkval blood loss anemia requiring transfusion complicated by acute kidney injury with a creatinine of 2 mg/dL present on admission with a BUN of 32 (up from his baseline creatinine of 1.2 mg/dL last admission) likely due to to a combination of urinary retention (with ~1 L of urine returned immediately upon Kitchen placement) and hypotension causing acute tubular necrosis arising from a relative lack of kidney perfusion in the clinical setting of near syncope and he was then admitted to the ICU for ongoing care for stay that is expected to be greater than 48 hours. [facility] Medical History Abnormal stress test Essential hypertension History of DVT (deep vein thrombosis) History of DVT (deep vein thrombosis) History of left heart catheterization (LHC) (~04/23/19) History of pulmonary embolism Hyperlipemia Paroxysmal atrial fibrillation Persistent atrial fibrillation Premature ventricular contraction Sleep apnea Home Medications aspirin 81 mg tablet,delayed release (Adult Low Dose Aspirin) 81 mg PO DAILY 02/11/18 [History Last Taken 04/05/23] multivitamin 1 tab PO DAILY 02/11/18 [History Last Taken 04/05/23] valsartan 320 mg tablet (Diovan) 320 mg PO DAILY #90 tabs 10/08/22 [Rx Last Taken 04/05/23] apixaban 5 mg tablet (Eliquis) 5 mg PO BID #60 tabs 11/20/22 [Rx Last Taken 04/05/23] diltiazem HCl 180 mg capsule,extended release 24 hr (Cardizem CD) 180 mg PO BID #180 caps 03/11/23 [Rx Last Taken 04/05/23] flecainide 150 mg tablet 150 mg PO BID #180 tabs 03/11/23 [Rx Last Taken 04/05/23] pravastatin 40 mg tablet 40 mg PO DAILY #90 tabs 03/17/23 [Rx Last Taken 04/04/23] vitamin B complex (B Complex-Vitamin B12 tablet) 1 tab PO DAILY 04/05/23 [History Last Taken 04/05/23] Allergy/AdvReac Type Severity Reaction Status Date / Time No Known Allergies Allergy Verified 04/05/23 18:51 Family History Father Myocardial infarction, Onset Age: 48 Hypertension Sister Atrial fibrillation Surgical History History of right hip replacement Social History Smoking Status: Never smoker alcohol intake: current details: occasional substance use type: does not use ROS ROS Narrative Review of systems: Constitutional: Patient denies fever, chills or malaise. Eyes: Patient denies visual changes. ENT: Patient denies runny nose or sore throat. Cardiovascular: Patient admits to near syncope but he denies chest pain. Respiratory: Patient admits to shortness of breath but denies cough. Gastrointestinal: Patient denies abdominal pain, nausea, vomiting, melena or hematochezia. Genitourinary: Patient denied dysuria or urinary frequency but he was found to be unable to urinate easily with 1 L of urine returned after Kitchen placement in the ICU. Neurologic: Patient denies headache or focal neurologic deficits. Integumentary: Patient denies rash. Hematology: Patient denies easy bruising bleeding or bruisability. Allergy: Patient denies urticaria, lip swelling or mouth swelling. 14 point review of systems otherwise negative except for positives noted above in HPI. Vital Signs Vital Signs Vital Signs: 04/05/23 18:51 04/05/23 18:58 04/05/23 19:00 Temperature 96.6 F L Temperature Source Temporal Pulse Rate 61 Respiratory Rate 18 Respiratory Effort Normal Non-Labored Normal Non-Labored Respiratory Pattern Normal Normal Blood Pressure 110/57 L Blood Pressure Mean 74 Pulse Ox 100 Oxygen Delivery Method Nasal Cannula Oxygen Flow Rate (L/min) 2 Weight Weight: 286 lb 9.615 oz Body Mass Index (BMI) 39.9 Physical Exam Const alert, oriented x3, no apparent distress and well nourished Constitutional Narrative: Morbidly obese. General Appearance: cooperative HEENT normocephalic, head/scalp atraumatic, hearing grossly normal bilaterally, moist oral mucous membranes and oropharynx normal Mouth: oral and palatal mucosa normal Eyes PERRL, EOMs intact bilaterally and conjunctivae normal Neck no lymphadenopathy, supple, no JVD and no carotid bruits Resp normal respiratory effort, no retractions, no use of accessory muscles and clear to auscultation bilaterally Cardio Cardio Narrative: Bradycardic and irregular at approximately 60 bpm after atropine. GI normal to inspection, nondistended, normoactive bowel sounds, soft to palpation, non-tender and non-distended GI Narrative: Morbidly obese. Extremity normal to inspection, full ROM and no clubbing, cyanosis or edema Skin Skin Narrative: Patient has no evidence of rash at this time. But there is evidence of pallor. Neuro oriented x3, CN's II-XII intact bilaterally, moves all extremities and no focal motor deficits Sensorium / Orientation: awake, alert, oriented to person, oriented to place and oriented to time Speech: speech normal Motor Exam: strength 5/5 throughout Psych affect normal Results Medical Records Data Attestation: I reviewed the patient's medical records Lab / Micro Data Attestation: I reviewed the patient's lab results. 04/06/23 04:05 04/06/23 04:05 Labs: Laboratory Results - last 24 hr 04/05/23 19:03: WBC 8.8, RBC 1.63 L, Hgb 6.4 L, Hct 20.1 L, MCV 123.3 H, MCH 39.3 H, MCHC 31.8 L, RDW Std Deviation 69.2 H, RDW Coeff of Dilan 15.4 H, Plt Count 179, MPV 11.1, Neut % (Auto) Not Reportable, Absolute Neuts (auto) 6.1, Absolute Lymphs (auto) 2.10, Total Counted 100, Neutrophils % (Manual) 69, Band Neutrophils % 1, Lymphocytes % (Manual) 24, Eosinophils % (Manual) 2, Basophils % (Manual) 1, Metamyelocytes % 1, Myelocytes % 2 H, Diff Path Review May foll, Platelet Estimate ADEQUATE, Polychromasia RARE, Hypochromasia 1+, Anisocytosis 1+, Macrocytosis 1+, Ovalocytes RARE, Sodium 132 L, Potassium 4.6, Chloride 102, Carbon Dioxide 21.0, Anion Gap 9, BUN 32 H, Creatinine 2.00 H, Estim Creat Clear Calc 36.08, Est GFR (MDRD) Af Amer 43 L, Est GFR (MDRD) Non-Af 35 L, BUN/Creatinine Ratio 16.0, Glucose 105, Calcium 8.1 L, Troponin I High Sens 11 Micro: Microbiology 04/05/23 19:30 Stool Stool Occult Blood ([place]) - Final Imagaing Radiology Impression Chest X-Ray 04/05/23 19:05 IMPRESSION: No radiographic evidence of acute cardiopulmonary disease. Electronically Signed: Cameron Cody MD at 19:50 EST , Assessment & Plan Assessment/Plan (1) Acute blood loss anemia: (2) Acute kidney injury (ADORE) with acute tubular necrosis (ATN): (3) Near syncope: (4) Adverse drug reaction: QUALIFIERS: Encounter type: initial encounter Qualified Code(s): T50.905A - Adverse effect of unspecified drugs, medicaments and biological substances, initial encounter PLAN: Plan 1. Icgwj-fm-xmlgvjx blood loss anemia with macrocytosis of 123.3 fL and hemoglobin of 6.4 g/dL present on admission - Admit to ICU. Continue with transfusion of 2 units of packed red blood cells ordered in the ER. Recheck CBC 2 hours after final transfusion is completed. Check iron studies, B12 and folate levels for likely multifactorial, severe macrocytic anemia. We will give Lasix 40 mg IV once between the first and second units of packed red blood cells in an effort to prevent acute volume overload. Finally, because patient's CBC with differential is markedly abnormal we will consult the supervisor pressing department on-call to see this patient on rounds in the a.m. with help appreciated in advance. 2. Acute kidney injury with elevated creatinine of 2 mg/dL and BUN of 32 mg/dL present on admission (up from his baseline creatinine of 1.2 mg/dL and BUN of 26 mg/dL last evaluation) likely due to a combination of acute urinary retention and possibly acute tubular necrosis from relative lack of renal perfusion caused by #1 - Volume resuscitate and recheck BMP in the a.m. to ensure improvement. Check UA C&S to evaluate for possible underlying infection and to confirm muddy brown casts. Check PSA screen. Finally, we will place Kitchen catheter to follow strict I's and O's. 3. Adverse drug reaction to cardiac medications including diltiazem, flecainide, aspirin and apixaban use to treat paroxysmal atrial fibrillation causing symptomatic bradycardia and hypotension precipitating and exacerbating #1 and #2 respectively - Hold all of these agents until further notice. Give IV calcium gluconate to reverse diltiazem to minimize the the need for further boluses of atropine. Finally, we will consult cardiology to see this patient in the a.m. on rounds and further recommendations with help appreciated in advance. 4. Near syncopal episode arising from #1 - #3 - Continue supportive care outlined above and monitor for improvement. Checked blood alcohol concentration which was 79 mg/dL consistent with impairment but not intoxication. Patient was advised to minimize his alcohol intake in the future. Patient will be on bedrest for the initial part of his admission to minimize the risk of falls or other complications. Finally, we will consult PT/OT and case management to see this patient on rounds in the a.m. for further recommendations with help appreciated in advance. 5. Morbid obesity; with BMI of 40 this admission with previously documented obstructive sleep apnea and nonalcoholic fatty liver disease compounding #1 - #4 - Weight loss will be recommended. Check TSH. Continue CPAP as previous. Recent GI evaluation by Dr. Monte noted above. 6. History of DVT/PE - Noted. Patient is not expected to have acute thrombosis at this time. His antiplatelet and anticoagulation agents will be held until further notice. 7. Essential hypertension - Hold scheduled antihypertensives at this time. Give IV hydralazine as needed for systolic blood pressure greater than 160 mmHg. 8. Hyperlipidemia - Resume statin and check lipid profile this admission. 9. DVT prophylaxis - SCDs only at this time in case of underlying occult bleeding contributing to #1. Total time: Approximately 75 minutes. Charges/Coding Visit Charges Inpatient E&M: 95510 Init Hosp L3
[2023-04-05] MEDS: Calcium Gluconate IV 1 GM in 0.9% Normal Saline (100mL Bag) 100 ML IV (21:16)
[2023-04-05] MEDS: 0.9% Normal Saline (1000mL) 1,000 ML 150 ML IV (21:17)
[2023-04-05 22:24] LABS: Iron 153 ug/dL (65-175); Iron Binding Capacity,Total 312 ug/dL (250-450)
--- NOTE | 2023-04-05 22:25 | CPS ---
Pt states he hasn't worn CPAP in long time and doesn't wish to wear one here.
[2023-04-05] MEDS: Pravastatin 40 MG Tablet PO (22:45)
[2023-04-05] MEDS: 0.9% Saline Lock 10 ML Syringe IV (22:45)
[2023-04-05 22:52] LABS: Bacteria 0 SEEN /hpf (None Seen); Color, Urine Yellow (Yellow); Glucose, Dipstick Normal (Normal); Ketone-Dipstick Negative (Negative); Leukocyte Esterase-Dipstick 25 /ul (Negative); Mucous, Urine 0 SEEN /hpf (<or=2+); Nitrite-Dipstick Negative (Negative); Occult Blood-Urine 10 /ul (Negative); Protein-Dipstick 500 mg/dl (Negative); Specific Gravity, Urine 1.015 (1.002-1.030); Squamous Epithelial Cells - UA 0 SEEN /hpf (0-5); Urine Bilirubin Dipstick Negative (Negative); Urine Clarity Sl. Cloudy (Clear); Urine Urobilinogen Normal (Normal)
[2023-04-05 23:14] LABS: Red Blood Cells-Urine 0-5 SEEN /hpf (0-5); White Blood Cells 5-10 SEEN /hpf (0-5)
[2023-04-05 23:15] LABS: Hyaline Cast 0-5 SEEN /lpf (0-5)
[2023-04-06] VITALS (21 sets, daily range): BP systolic 114–156; BP diastolic 59–89; PULSE 58–75; RESP 14–26; TEMP 36.7–37.4; O2SAT 93–99; BMI 36.3
[2023-04-06] MEDS: Furosemide 40 MG/4 ML Vial IV (00:13)
[2023-04-06 04:10] LABS: Absolute Lymphocyte Count 1.33 X10^3/uL (0.83-4.51); Absolute Neutrophil Count 7.5 X10^3/uL (2.0-7.7); Basophil# 0.02 X10^3/uL; Basophil% 0.2 % (0-1); Eosinophil# 0.15 X10^3/uL; Eosinophils% 1.6 % (0-5); Hematocrit 24.1 % (40-54); Hemoglobin 7.8 g/dL (13.0-16.5); Lymphocyte # 1.33 X10^3/ul (0.83-4.51); Lymphocyte % 14.1 % (19-41); Mean Corp Hgb Conc 32.4 g/dL (32-36); Mean Corpuscular Hgb 36.8 pg (27.0-32.0); Mean Corpuscular Volume 113.7 fL (80-94); Mean Platelet Vol. 11.1 fl (6.2-12.0); Monocyte# 0.17 X10^3/uL; Monocyte% 1.8 % (0-10); NRBC Flagged by Analyzer 0.3 % (0-5); Neutrophil # 7.54 X10^3/uL (2.7-7.7); Neutrophil % 80.2 % (47-70); POSITIVE MORPHOLOGY YES; Platelet Count 149 K/mm3 (150-450); RBC Distribution Width CV 21.1 % (11.6-14.6); RBC Distribution Width SD 86.5 fl (35.1-43.9); Red Blood Count 2.12 M/mm3 (4.6-6.2); White Blood Count 9.4 K/mm3 (4.4-11.0)
[2023-04-06 04:22] LABS: Differential Indicated SCAN CRITERIA MET
[2023-04-06 04:35] LABS: ALB/GLOB Ratio 1.2 RATIO (0.9-2.4); AST(SGOT) 27 U/L (15-37); Alanine Aminotransfer ALT/SGPT 38 U/L (16-61); Albumin, Serum 3.6 g/dL (3.2-5.0); Alkaline Phosphatase 76 U/L (45-117); Anion Gap 8 (5-15); BUN 29 mg/dL (7-18); Chloride 106 mmol/L (98-107); Cholesterol 132 mg/dL (200); Creatinine, Serum 1.71 mg/dL (0.70-1.30); EST Glomerular Filtration Rate 42 mL/min (>60); Est Glom Filt Rate - Afr Amer 51 mL/min (>60); Estimated Creatinine Clearance 40.91 ml/min; Glucose 104 mg/dL (74-106); High Density Lipoprotein 31 mg/dL; Magnesium 1.8 mg/dL (1.6-2.6); Phosphorus 4.3 mg/dL (2.5-4.9); Potassium 4.5 mmol/L (3.5-5.1); Protein, Total 6.6 g/dL (6.4-8.2); Sodium Level 136 mmol/L (136-145); Thyroid Stim Hormone (TSH) 1.97 uIU/mL (0.358-3.74); Triglycerides 249 mg/dL; Very Low Density Lipoprotein 50 mg/dL (5-40)
[2023-04-06 05:13] LABS: Anisocytosis 2+; Differential Comment SCANNED; Macrocytosis 2+; Ovalocyte RARE
[2023-04-06 05:14] LABS: Polychromasia RARE
[2023-04-06] MEDS: 0.9% Saline Lock 10 ML Syringe IV ×2 (05:48→08:50)
[2023-04-06] MEDS: Acetaminophen 325 MG Tablet 650 MG PO (05:48)
[2023-04-06] MEDS: Vitamin B Comp W-C Capsule 1 CAP PO (08:49)
[2023-04-06] MEDS: Multivitamins,Therapeutic Tablet 1 TABLET PO (08:50)
[2023-04-06] MEDS: Flu Vacc QS2023-24(65YR UP)/PF 240 MCG/0.7 ML Syringe IM (08:52)
[2023-04-06 09:47] LABS: Platelet Count 153 K/mm3 (150-450); Reticulocyte Count 1.82 % (0.5-1.5)
--- NOTE | 2023-04-06 10:10 | CON.PCM.CA_ITS ---
Assessment & Plan Assessment/Plan (1) Paroxysmal atrial fibrillation: PLAN: Atrial fibrillation with slow ventricular response on presentation. Now in normal sinus rhythm. Discontinue flecainide. May resume diltiazem from tomorrow morning. (2) Near syncope: PLAN: Likely vasovagal. Note severe anemia on presentation. Status post blood transfusion. (3) Essential hypertension: PLAN: Valsartan. (4) Anemia: QUALIFIERS: Anemia type: unspecified type Qualified Code(s): D64.9 - Anemia, unspecified PLAN: Recommend GI/surgery consult. HPI Consult Data Date of Consult: 04/06/23 HPI Narrative Reason for Consultation: Bradycardia and hypotension HPI Narrative: This gentleman has past medical history significant for paroxysmal atrial fibrillation. He has been on flecainide and diltiazem for that. Yesterday he presented to the hospital with complaints of a presyncopal episode. No chest pain or shortness of breath reported. EMS found him to be bradycardic and hypotensive. He was given atropine in the field. Here in the hospital, the patient was noted to be significantly anemic. His hemoglobin was 10.9 g/dL in October of this year. On this admission, he was noted to have hemoglobin of 6.4 g/dL. Please note that he has been on apixaban for anticoagulation for his paroxysmal atrial fibrillation. [facility] Medical History Abnormal stress test Essential hypertension History of DVT (deep vein thrombosis) History of DVT (deep vein thrombosis) History of left heart catheterization (LHC) (~04/23/19) History of pulmonary embolism Hyperlipemia Paroxysmal atrial fibrillation Persistent atrial fibrillation Premature ventricular contraction Sleep apnea Home Medications aspirin 81 mg tablet,delayed release (Adult Low Dose Aspirin) 81 mg PO DAILY 02/11/18 [History Last Taken 04/05/23] multivitamin 1 tab PO DAILY 02/11/18 [History Last Taken 04/05/23] valsartan 320 mg tablet (Diovan) 320 mg PO DAILY #90 tabs 10/08/22 [Rx Last Tomas en 04/05/23] apixaban 5 mg tablet (Eliquis) 5 mg PO BID #60 tabs 11/20/22 [Rx Last Taken 04/05/23] diltiazem HCl 180 mg capsule,extended release 24 hr (Cardizem CD) 180 mg PO BID #180 caps 03/11/23 [Rx Last Taken 04/05/23] flecainide 150 mg tablet 150 mg PO BID #180 tabs 03/11/23 [Rx Last Taken 03/13 10/01] pravastatin 40 mg tablet 40 mg PO DAILY #90 tabs 03/17/23 [Rx Last Taken 04/04/23] vitamin B complex (B Complex-Vitamin B12 tablet) 1 tab PO DAILY 04/05/23 [History Last Taken 04/05/23] Allergy/AdvReac Type Severity Reaction Status Date / Time No Known Allergies Allergy Verified 04/05/23 18:51 Family History Father Myocardial infarction, Onset Age: 48 Hypertension Sister Atrial fibrillation Surgical History History of right hip replacement Social History Smoking Status: Never smoker alcohol intake: current details: occasional substance use type: does not use Risk Stratification Risk Stratification Applicable: No Objective Data Vital Signs: Vital Signs Temp Pulse Resp BP Pulse Ox O2 Del Method O2 Flow Rate 99.1 F 68 19 H 150/82 H 96 Nasal Cannula 2 04/06/23 09:00 04/06/23 09:00 04/06/23 09:00 04/06/23 09:00 04/06/23 09:00 04/06/23 09:00 04/06/23 09:00 Oxygen Flow Rate (L/min) 2 Oxygen Delivery Method Nasal Cannula Weight: 253 lb 8.505 oz Body Mass Index (BMI) 36.3 Intake & Output: Intake and Output for Last 24 Hours 04/04/23 04/05/23 04/06/23 23:59 23:59 23:59 Intake Total 1527.5 / 1527.5 32 / 32 Output Total 50 / 50 3675 / 3675 Balance 1477.5 / 1477.5 -3643 / -3643 Lab / Micro Data Attestation: I reviewed the patient's lab results. 04/06/23 04:05 04/06/23 04:05 Labs: Laboratory Results - last 24 hr 04/05/23 19:03: WBC 8.8, RBC 1.63 L, Hgb 6.4 L, Hct 20.1 L, MCV 123.3 H, MCH 39.3 H, MCHC 31.8 L, RDW Std Deviation 69.2 H, RDW Coeff of Dilan 15.4 H, Plt Count 179, MPV 11.1, Neut % (Auto) Not Reportable, Absolute Neuts (auto) 6.1, Absolute Lymphs (auto) 2.10, Total Counted 100, Neutrophils % (Manual) 69, Band Neutrophils % 1, Lymphocytes % (Manual) 24, Eosinophils % (Manual) 2, Basophils % (Manual) 1, Metamyelocytes % 1, Myelocytes % 2 H, Diff Path Review May , Platelet Estimate ADEQUATE, Polychromasia RARE, Hypochromasia 1+, Anisocytosis 1+, Macrocytosis 1+, Ovalocytes RARE, Sodium 132 L, Potassium 4.6, Chloride 102, Carbon Dioxide 21.0, Anion Gap 9, BUN 32 H, Creatinine 2.00 H, Estim Creat Clear Calc 36.08, Est GFR (MDRD) Af Amer 43 L, Est GFR (MDRD) Non-Af 35 L, BUN/ Creatinine Ratio 16.0, Glucose 105, Calcium 8.1 L, Troponin I High Sens 11, F olate 25.90 04/05/23 19:55: Blood Type A POSITIVE, Antibody Screen NEGATIVE, Crossmatch See Detail 04/05/23 21:37: Iron 153, TIBC 312, Iron Saturation 49.0, Ethyl Alcohol 79.0 04/05/23 22:46: Urine Color Yellow, Urine Clarity Sl. Cloudy, Urine pH 6.0, Ur Specific [place] 1.015, Urine Protein 500 H, Urine Glucose (UA) Normal, Urine Ketones Negative, Urine Occult Blood 10 H, Urine Nitrite Negative, Urine Bilirubin Negative, Urine Urobilinogen Normal, Ur Leukocyte Esterase 25 H, Urine RBC 0-5 SEEN, Urine WBC 5-10 SEEN, Ur Squamous Epith Cells 0 SEEN, Urine Ba cteria 0 SEEN, Hyaline Casts 0-5 SEEN, Urine Mucus 0 SEEN 04/06/23 04:05: WBC 9.4, RBC 2.12 L, Hgb 7.8 L, Hct 24.1 L, MCV 113.7 H D, MCH 36.8 H, MCHC 32.4, RDW Std Deviation 86.5 H, RDW Coeff of Dilan 21.1 H, Plt Count 149 L, MPV 11.1, Immature Gran % (Auto) 2.100 H, Neut % (Auto) 80.2 H, Lymph % (Auto) 14.1 L, [place] % (Auto) 1.8, Eos % (Auto) 1.6, Baso % (Auto) 0.2, Absolute Neuts (auto) 7.5, Absolute Lymphs (auto) 1.33, Nucleated RBC % 0.3, Differential Comment SCANNED, Polychromasia RARE, Anisocytosis 2+, Macrocytosis 2+, Ovalocytes RARE, Sodium 136, Potassium 4.5, Chloride 106, Carbon Dioxide 22.0, Anion Gap 8, BUN 29 H, Creatinine 1.71 H, Estim Creat Clear Calc 40.91, Est GFR (MDRD) Af Amer 51 L, Est GFR (MDRD) Non-Af 42 L, BUN/Creatinine Ratio 17.0, Glucose 104, Calcium 8.0 L, Phosphorus 4.3, Magnesium 1.8, Total Bilirubin 0.50, AST 27, ALT 38, Alkaline Phosphatase 76, Total Protein 6.6, Albumin 3.6, Globulin 3.0, Albumin/Globulin Ratio 1.2, Triglycerides 249 H, Cholesterol 132, LDL Cholesterol 51, VLDL Cholesterol 50 H, HDL Cholesterol 31 L, PSA Screen 14.20 H, TSH 1.97 04/06/23 09:30: Retic Count 1.82 H, Immature Retic Fraction 22.10 H, Retic Hgb Equivalent 41.0 H, Direct Antiglob Test NEG w/POLYSPECIFIC Micro: Microbiology 04/05/23 19:30 Stool Stool Occult Blood ([place]) - Final Rhythm Strip Rhythm Strip: Sinus Rhythm Cardiology Labs/Tests 04/05/23 19:03: WBC 8.8, RBC 1.63 L, Hgb 6.4 L, Hct 20.1 L, MCV 123.3 H, MCH 39.3 H, MCHC 31.8 L, Plt Count 179, MPV 11.1, Neut % (Auto) Not Reportable, Absolute Neuts (auto) 6.1, Total Counted 100, Neutrophils % (Manual) 69, Band Neutrophils % 1, Lymphocytes % (Manual) 24, Eosinophils % (Manual) 2, Basophils % (Manual) 1, Metamyelocytes % 1, Myelocytes % 2 H, Sodium 132 L, Potassium 4.6, Chloride 102, Carbon Dioxide 21.0, Anion Gap 9, BUN 32 H, Creatinine 2.00 H, Est GFR (MDRD) Af Amer 43 L, Est GFR (MDRD) Non-Af 35 L, BUN/Creatinine Ratio 16.0, Glucose 105, Calcium 8.1 L 04/05/23 21:37: Iron 153, TIBC 312, Iron Saturation 49.0 04/05/23 22:46: Urine Color Yellow, Urine Clarity Sl. Cloudy, Urine pH 6.0, Ur Specific [place] 1.015, Urine Protein 500 H, Urine Glucose (UA) Normal, Urine Ketones Negative, Urine Occult Blood 10 H, Urine Nitrite Negative, Urine Bilirubin Negative, Urine Urobilinogen Normal, Ur Leukocyte Esterase 25 H, Urine RBC 0-5 SEEN, Urine WBC 5-10 SEEN 04/06/23 04:05: WBC 9.4, RBC 2.12 L, Hgb 7.8 L, Hct 24.1 L, MCV 113.7 H D, MCH 36.8 H, MCHC 32.4, Plt Count 149 L, MPV 11.1, Immature Gran % (Auto) 2.100 H, Neut % (Auto) 80.2 H, Lymph % (Auto) 14.1 L, [place] % (Auto) 1.8, Eos % (Auto) 1.6, Baso % (Auto) 0.2, Absolute Neuts (auto) 7.5, Nucleated RBC % 0.3, Sodium 136, Potassium 4.5, Chloride 106, Carbon Dioxide 22.0, Anion Gap 8, BUN 29 H, Creatinine 1.71 H, Est GFR (MDRD) Af Amer 51 L, Est GFR (MDRD) Non-Af 42 L, BUN/Creatinine Ratio 17.0, Glucose 104, Calcium 8.0 L, Phosphorus 4.3, Magnesium 1.8, Total Bilirubin 0.50, Triglycerides 249 H, Cholesterol 132, LDL Cholesterol 51, VLDL Cholesterol 50 H, HDL Cholesterol 31 L Rhythm: EKG: Initial ECG showed atrial fibrillation with slow ventricular response. ECHO: Stress Test: Cardiac Cath: PCI: CT Surgery: Holter monitor: EPS: PPM: CXR: Chest CT Scan: Radiography Diagnostic Testing: Radiology Impression Chest X-Ray 04/05/23 19:05 IMPRESSION: No radiographic evidence of acute cardiopulmonary disease. Electronically Signed: Cameron Cody MD at 19:50 EST ,
[2023-04-06 10:12] LABS: Ferritin 1340 ng/mL (26-388); LDH 287 U/L (87-241)
--- NOTE | 2023-04-06 10:51 | PN.HOSP_ITS ---
Reason for Visit Reason for Visit: Lightheadedness/shortness of breath Subjective Subjective Patient is a 72-year-old male who presents emergency department at [facility] on 04/05/2023 complaining of lightheadedness and shortness of breath. His symptoms began at approximately 3 PM with abrupt onset of lightheadedness that caused him to drop to 1 knee but he did not lose consciousness. He had a friend that was near him who checked his pulse it was noted to be in the low 30s. EMS was activated at that time and he was found to be hypotensive and bradycardic with no P waves. He was given atropine in the field and felt somewhat improved with his blood pressure improving to 90 systolic and a heart rate between 50 and 60. He denied any other significant symptoms but he did indicate he was recently started on Eliquis 3 to 4 months prior for paroxysmal atrial fibrillation. He did admit that he drinks several beers a day and did so a few shots of whiskey during the football game which sounds like it may he be typical for him. Vital signs on presentation showed a temperature of 96.6, heart rate was 61, blood pressure is 110/57 and oxygen saturations are 100% on 2 L nasal cannula. His CBC showed marked anemia with a hemoglobin of 6.4 with previous hemoglobin in October 2022 being 10.9. His white count and platelet count were normal. His reticulocyte is only mildly elevated at 1.8. Haptoglobin is pending. His chemistry panel showed mild hyponatremia which has since resolved at 132. His BUN was 32 with a serum creatinine of 2.0 which is significantly different from his previous BMP in November 2022 at which time his serum creatinine was 1.2. 1.2 appears to be close to his baseline. Iron studies were unremarkable. Ferritin was elevated at 1340. LDH was 287. His folate was normal and he had a previous B12 in November that was 1224 however currently is pending. TSH is unremarkable. A PSA was obtained on the a.m. of 04/06/2023 and found to be 14.2 however this was done after a Kitchen catheter was placed. This morning he states he is feeling fine. States he has been taking his Eliquis up until the day of admission. Has not noted any dark tarry or sticky stools. Was aware that he was anemic and workup was being done as an outpatient by GI. Objective Data Objective Data Vital Signs: Vital Signs Temp Pulse Resp BP Pulse Ox O2 Del Method O2 Flow Rate 99.3 F H 64 19 H 128/70 H 97 Nasal Cannula 2 04/06/23 10:00 04/06/23 10:00 04/06/23 10:00 04/06/23 10:00 04/06/23 10:00 04/06/23 10:00 04/06/23 10:00 Oxygen Flow Rate (L/min) 2 Oxygen Delivery Method Nasal Cannula Weight: 115 kg Body Mass Index (BMI) 36.3 Intake & Output: Intake and Output for Last 24 Hours 04/04/23 04/05/23 04/06/23 23:59 23:59 23:59 Intake Total 1527.5 / 1527.5 32 32 Output Total 50 / 50 3675 / 3675 Balance 1477.5 / 1477.5 -3643 / -3643 Lab / Micro Data 04/06/23 04:05 04/06/23 04:05 Labs: Laboratory Results - last 24 hr 04/05/23 19:03: WBC 8.8, RBC 1.63 L, Hgb 6.4 L, Hct 20.1 L, MCV 123.3 H, MCH 39.3 H, MCHC 31.8 L, RDW Std Deviation 69.2 H, RDW Coeff of Dilan 15.4 H, Plt Count 179, MPV 11.1, Neut % (Auto) Not Reportable, Absolute Neuts (auto) 6.1, Absolute Lymphs (auto) 2.10, Total Counted 100, Neutrophils % (Manual) 69, Band Neutrophils % 1, Lymphocytes % (Manual) 24, Eosinophils % (Manual) 2, Basophils % (Manual) 1, Metamyelocytes % 1, Myelocytes % 2 H, Diff Path Review May foll, Platelet Estimate ADEQUATE, Polychromasia RARE, Hypochromasia 1+, Anisocytosis 1+, Macrocytosis 1+, Ovalocytes RARE, Sodium 132 L, Potassium 4.6, Chloride 102, Carbon Dioxide 21.0, Anion Gap 9, BUN 32 H, Creatinine 2.00 H, Estim Creat Clear Calc 36.08, Est GFR (MDRD) Af Amer 43 L, Est GFR (MDRD) Non-Af 35 L, BUN /Creatinine Ratio 16.0, Glucose 105, Calcium 8.1 L, Troponin I High Sens 11, Folate 25.90 04/05/23 19:55: Blood Type A POSITIVE, Antibody Screen NEGATIVE, Crossmatch See Detail 04/05/23 21:37: Iron 153, TIBC 312, Iron Saturation 49.0, Ethyl Alcohol 79.0 04/05/23 22:46: Urine Color Yellow, Urine Clarity Sl. Cloudy, Urine pH 6.0, Ur Specific [place] 1.015, Urine Protein 500 H, Urine Glucose (UA) Normal, Urine Ketones Negative, Urine Occult Blood 10 H, Urine Nitrite Negative, Urine Bilirubin Negative, Urine Urobilinogen Normal, Ur Leukocyte Esterase 25 H, Urine RBC 0-5 SEEN, Urine WBC 5-10 SEEN, Ur Squamous Epith Cells 0 SEEN, Urine B acteria 0 SEEN, Hyaline Casts 0-5 SEEN, Urine Mucus 0 SEEN 04/06/23 04:05: WBC 9.4, RBC 2.12 L, Hgb 7.8 L, Hct 24.1 L, MCV 113.7 H D, MCH 36.8 H, MCHC 32.4, RDW Std Deviation 86.5 H, RDW Coeff of Dilan 21.1 H, Plt Count 149 L, MPV 11.1, Immature Gran % (Auto) 2.100 H, Neut % (Auto) 80.2 H, Lymph % (Auto) 14.1 L, [place] % (Auto) 1.8, Eos % (Auto) 1.6, Baso % (Auto) 0.2, Absolute Neuts (auto) 7.5, Absolute Lymphs (auto) 1.33, Nucleated RBC % 0.3, Differential Comment SCANNED, Polychromasia RARE, Anisocytosis 2+, Macrocytosis 2+, Ovalocytes RARE, Sodium 136, Potassium 4.5, Chloride 106, Carbon Dioxide 22.0, Anion Gap 8, BUN 29 H, Creatinine 1.71 H, Estim Creat Clear Calc 40.91, Est GFR (MDRD) Af Amer 51 L, Est GFR (MDRD) Non-Af 42 L, BUN/Creatinine Ratio 17.0, Glucose 104, Calcium 8.0 L, Phosphorus 4.3, Magnesium 1.8, Total Bilirubin 0.50, AST 27, ALT 38, Alkaline Phosphatase 76, Total Protein 6.6, Albumin 3.6, Globulin 3.0, Albumin/Globulin Ratio 1.2, Triglycerides 249 H, Cholesterol 132, LDL Cholesterol 51, VLDL Cholesterol 50 H, HDL Cholesterol 31 L, PSA Screen 14.20 H, TSH 1.97 04/06/23 09:30: Retic Count 1.82 H, Immature Retic Fraction 22.10 H, Retic Hgb Equivalent 41.0 H, Ferritin 1340 H, Lactate Dehydrogenase 287 H, Direct Antiglob Test NEG w/POLYSPECIFIC Micro: Microbiology 04/05/23 19:30 Stool Stool Occult Blood ([place]) - Final Radiography Diagnostic Testing: Radiology Impression Chest X-Ray 04/05/23 19:05 IMPRESSION: No radiographic evidence of acute cardiopulmonary disease. Electronically Signed: Cameron Cody MD at 19:50 EST , Rhythm Strip Rhythm Strip: Sinus Rhythm Physical Exam Const alert, oriented x3, no apparent distress, healthy appearing and well nourished; Negative for average body habitus Constitutional Narrative: Obese, older, white male, sitting up in bed watching television, at bedside, patient appears comfortable nontoxic HEENT head/scalp atraumatic and moist oral mucous membranes HEENT Narrative: Mallampati 3, no thrush Head and Scalp: normocephalic Eyes PERRL and EOMs intact bilaterally Eyes Narrative: Conjunctival pallor bilaterally, no scleral icterus Neck no lymphadenopathy and supple Neck Narrative: Trachea midline, neck is short and thick, no thyroid enlargement noted Resp normal respiratory effort, no retractions, no use of accessory muscles and clear to auscultation bilaterally Auscultation: Negative for rales, rhonchi or wheezes Cardio regular rate, regular rhythm, S1 normal heart sound, S2 normal heart sound, no murmurs, no rub, no gallops and no clicks GI normal to inspection, nondistended, normoactive bowel sounds, soft to palpation and non-tender Extremity no clubbing, cyanosis or edema Extremity Narrative: 2+ pedal pulses Skin no rashes or lesions noted, no wounds, skin turgor normal, no jaundice, no petechiae and no mottling Skin Narrative: Skin is slightly pale Neuro oriented x3, moves all extremities and no focal motor deficits Speech: speech normal Psych affect normal Psych Narrative: Very pleasant, interacts appropriately Assessment & Plan Assessment/Plan (1) Near syncope: (2) Bradycardia: (3) ADORE (acute kidney injury): (4) Acute anemia: (5) Abnormal PSA: PLAN: Plan Near syncope with bradycardia in the setting of paroxysmal atrial fibrillation -Seen by cardiology this morning and they recommend discontinuing his flecainide and restarting his Cardizem tomorrow morning -They suspect that his syncope was vasovagal -Continue to monitor on telemetry -Patient has had a recent echo in October that showed normal EF of 55% with no regional wall motion abnormalities, mild to moderate mitral valve insufficiency and a right ventricular systolic pressure of 30 mmHg. -Cardiology is following-appreciate input Acute on chronic anemia -Baseline hemoglobin has been slowly trending down his hemoglobin was normal in 2018 and found to be 12.7 in May 2022 -Since May his hemoglobin has slowly been trending down with his most recent hemoglobin being 10.9 on 10/30/2022 -Hemoglobin was found to be 6.4 on presentation -Patient was transfused 2 units of packed red blood cells on 04/05/2023 -Hemoccult was negative and iron studies were normal -Patient with recent B12 in November however this was unremarkable but repeat is pending -Folic acid is normal -Haptoglobin pending -Reticulocyte count is low -TSH within normal limits -Patient may need bone marrow biopsy depending on pending studies -Patient had been started on Eliquis in the last 4 to 5 months for paroxysmal atrial fibrillation -Hold Eliquis for now -We will cycle hemoglobin every 8 hours -Doubt this is acute blood loss anemia related to GI bleeding with a negative Hemoccult however cardiology has consulted gastroenterology -Hematology/oncology consult is pending and they plan to evaluate the patient tomorrow a.m. with current lab pending at the request ADORE -Baseline serum creatinine appears to be around 1.0-1.2 -Serum creatinine on presentation was 2.0 but is trending down and was 1.7 this morning -We will continue to hold losartan and restart if able -Avoid nephrotoxins as able -No need for nephrology consult or renal replacement therapy -DC Kitchen -If serum creatinine does not continue to trend down may need further workup PSA -We will add Flomax and discontinue Kitchen -Unclear of significance as the PSA was obtained after Kitchen catheter placement -Would recommend outpatient follow-up with repeat PSA after discharge and urology follow-up if remains elevated Hypertension -Holding her renal function -Holding Cardizem due to bradycardia with plans to reinitiate tomorrow per cardiology instructions -As needed hydralazine ordered for systolic pressure greater than 150 History of paroxysmal atrial fibrillation -Eliquis on hold due to anemia--> restart as soon as able -Restart Cardizem tomorrow morning per cardiology instructions -Discontinue flecainide indefinitely -Monitor on telemetry History of hyperlipidemia -Continue home pravastatin History of nonobstructive CAD -Cardiac catheterization done in 2019 that showed mild luminal irregularities of the proximal LAD but angiographically normal circumflex and RCA -Hold aspirin due to anemia and restart when able Nonalcoholic fatty liver disease -Biopsy was obtained and demonstrated -Ferritin suspected to be elevated due to his fatty liver disease and iron studies are normal -GI is following as an outpatient History of hepatic cyst -GI is following as an outpatient and follow-up per them FATIMAH -Continue nocturnal CPAP History of DVT/PE -Eliquis is on hold for severe anemia -Restart as soon as possible -SCDs Alcohol use without abuse -Patient states he drinks socially once in a while but my no means drinks on a daily basis -Was drinking prior to admission while he was watching the football game Obesity -BMI is 36.4 -Complicates treatment, prognosis, outcomes -Recommend weight loss DVT prophylaxis -SCDs for now and restart Eliquis once able CODE STATUS -Full code is verified on presentation Charges/Coding Visit Charges Inpatient E&M: 04775 Subs Hosp L3
[2023-04-06 11:38] LABS: Hemoglobin 8.5 g/dL (13.0-16.5)
--- NOTE | 2023-04-06 14:32 | EX.PCM.CON.G ---
HPI Consult Data Date of Consult: 04/06/23 HPI Narrative Reason for Consultation: Anemia HPI Narrative: DELICIA SHEA, is a 72 M who presents BMS to [facility]. He has a PMH of HTN, HLD, A-fib on Eliquis states sometime around 3:00 pm he started to feel lightheaded and short of breath. His friend checked his pulse and noted it was low. He felt lightheaded and dropped to his knee but did not pass out. No chest pain. Paramedics noted he was cardiac and hypotensive and administered atropine 0.5 mg and his vitals have improved. He states he is feeling improved. He was placed on oxygen for comfort; he does not wear home oxygen. He states about 3 months ago he went into A-fib and was cardioverted and since then thinks he has been in normal sinus rhythm. He is compliant with Eliquis. He originally established with GI for liver cysts. CTA of chest in 05/2022 had incidental finding of multiple hypodensities of the liver. US revealed these to be cysts measuring up to 1.8 cm. He also has hepatosteatosis. Liver enzymes in 12/2021 were normal. No personal or FH liver disease. He has no GI complaints. Denies heartburn, dysphagia, nausea, vomiting, abdominal pain, diarrhea, constipation, melena, hematochezia. No jaundice, pruritus, rash, bleeding, edema, ascites. 05/16/22 US/Abdomen Limited Hepatic steatosis with cysts measuring up to 1.8 cm. No sonographic evidence of cholelithiasis. ?CBC (hgb trending downward) 10.5-9.5, haptoglobin, coagulation, CMP, LFT, iron, TIBC, iron sat, LDH, ammonia, lipids, ALFRED, TSH, copper, ANCA, BETTY comp, AMA, ASM without pertinent abnormality? ESR H30, ferritin 930? Since his ferritin was so high we requested that he stop his iron therapy. He had a fecal occult that was on 11/09 and was normal, denies issues with bowels including diarrhea, constipation and bloody stools. Due to his fatty liver disease with hyper ferritin anemia possibly secondary to VALENZUELA and history of concomitant amiodarone and currently on flecainide which can cause microvascular steatosis we ordered an MRI instead of getting a liver biopsy. The MRI was suspicious for hemochromatosis. When he came into the hospital on this visit his hemoglobin was down to 6.4. He got 2 units of packed red blood cells and his current hemoglobin is up to 8.7. He is off of Eliquis at this time due to his worsening anemia. [facility] Medical History Abnormal stress test Essential hypertension History of DVT (deep vein thrombosis) History of DVT (deep vein thrombosis) History of left heart catheterization (LHC) (~04/23/19) History of pulmonary embolism Hyperlipemia Paroxysmal atrial fibrillation Persistent atrial fibrillation Premature ventricular contraction Sleep apnea Home Medications aspirin 81 mg tablet,delayed release (Adult Low Dose Aspirin) 81 mg PO DAILY 02/11/18 [History Last Taken 04/05/23] multivitamin 1 tab PO DAILY 02/11/18 [History Last Taken 04/05/23] valsartan 320 mg tablet (Diovan) 320 mg PO DAILY #90 tabs 10/08/22 [Rx Last Taken 04/05/23] apixaban 5 mg tablet (Eliquis) 5 mg PO BID #60 tabs 11/20/22 [Rx Last Taken 04/05/23] diltiazem HCl 180 mg capsule,extended release 24 hr (Cardizem CD) 180 mg PO BID #180 caps 03/11/23 [Rx Last Taken 04/05/23] flecainide 150 mg tablet 150 mg PO BID #180 tabs 03/11/23 [Rx Last Taken 04/05/23] pravastatin 40 mg tablet 40 mg PO DAILY #90 tabs 03/17/23 [Rx Last Taken 04/04/23] vitamin B complex (B Complex-Vitamin B12 tablet) 1 tab PO DAILY 04/05/23 [History Last Taken 04/05/23] Allergy/AdvReac Type Severity Reaction Status Date / Time No Known Allergies Allergy Verified 04/05/23 18:51 Family History Father Myocardial infarction, Onset Age: 48 Hypertension Sister Atrial fibrillation Surgical History History of right hip replacement Social History Smoking Status: Never smoker alcohol intake: current details: occasional substance use type: does not use ROS ROS Narrative Review of systems: Constitutional: Patient denies fever, chills or malaise. Eyes: Patient denies visual changes. ENT: Patient denies runny nose or sore throat. Cardiovascular: Patient admits to near syncope but he denies chest pain. Respiratory: Patient admits to shortness of breath but denies cough. Gastrointestinal: Patient denies abdominal pain, nausea, vomiting, melena or hematochezia. Genitourinary: Patient denied dysuria or urinary frequency but he was found to be unable to urinate easily with 1 L of urine returned after Kitchen placement in the ICU. Neurologic: Patient denies headache or focal neurologic deficits. Integumentary: Patient denies rash. Hematology: Patient denies easy bruising bleeding or bruisability. Allergy: Patient denies urticaria, lip swelling or mouth swelling. 14 point review of systems otherwise negative except for positives noted above in HPI. Physical Exam Const alert, oriented x3, no apparent distress, healthy appearing and well nourished; Negative for average body habitus Constitutional Narrative: Obese, older, white male, sitting up in bed watching television, at bedside, patient appears comfortable nontoxic HEENT head/scalp atraumatic and moist oral mucous membranes HEENT Narrative: Mallampati 3, no thrush Head and Scalp: normocephalic Eyes PERRL and EOMs intact bilaterally Eyes Narrative: Conjunctival pallor bilaterally, no scleral icterus Neck no lymphadenopathy and supple Neck Narrative: Trachea midline, neck is short and thick, no thyroid enlargement noted Resp normal respiratory effort, no retractions, no use of accessory muscles and clear to auscultation bilaterally Auscultation: Negative for rales, rhonchi or wheezes Cardio regular rate, regular rhythm, S1 normal heart sound, S2 normal heart sound, no murmurs, no rub, no gallops and no clicks GI normal to inspection, nondistended, normoactive bowel sounds, soft to palpation and non-tender Extremity no clubbing, cyanosis or edema Extremity Narrative: 2+ pedal pulses Skin no rashes or lesions noted, no wounds, skin turgor normal, no jaundice, no petechiae and no mottling Skin Narrative: Skin is slightly pale Neuro oriented x3, moves all extremities and no focal motor deficits Speech: speech normal Psych affect normal Psych Narrative: Very pleasant, interacts appropriately Lab / Micro Data 04/06/23 11:26 04/06/23 04:05 Labs: Laboratory Results - last 24 hr 04/05/23 19:03: WBC 8.8, RBC 1.63 L, Hgb 6.4 L, Hct 20.1 L, MCV 123.3 H, MCH 39.3 H, MCHC 31.8 L, RDW Std Deviation 69.2 H, RDW Coeff of Dilan 15.4 H, Plt Count 179, MPV 11.1, Neut % (Auto) Not Reportable, Absolute Neuts (auto) 6.1, Absolute Lymphs (auto) 2.10, Total Counted 100, Neutrophils % (Manual) 69, Band Neutrophils % 1, Lymphocytes % (Manual) 24, Eosinophils % (Manual) 2, Basophils % (Manual) 1, Metamyelocytes % 1, Myelocytes % 2 H, Diff Path Review May foll, Platelet Estimate ADEQUATE, Polychromasia RARE, Hypochromasia 1+, Anisocytosis 1+, Macrocytosis 1+, Ovalocytes RARE, Sodium 132 L, Potassium 4.6, Chloride 102, Carbon Dioxide 21.0, Anion Gap 9, BUN 32 H, Creatinine 2.00 H, Estim Creat Clear Calc 36.08, Est GFR (MDRD) Af Amer 43 L, Est GFR (MDRD) Non-Af 35 L, BUN/Creatinine Ratio 16.0, Glucose 105, Calcium 8.1 L, Troponin I High Sens 11, Folate 25.90 04/05/23 19:55: Blood Type A POSITIVE, Antibody Screen NEGATIVE, Crossmatch See Detail 04/05/23 21:37: Iron 153, TIBC 312, Iron Saturation 49.0, Ethyl Alcohol 79.0 04/05/23 22:46: Urine Color Yellow, Urine Clarity Sl. Cloudy, Urine pH 6.0, Ur Specific [place] 1.015, Urine Protein 500 H, Urine Glucose (UA) Normal, Urine Ketones Negative, Urine Occult Blood 10 H, Urine Nitrite Negative, Urine Bilirubin Negative, Urine Urobilinogen Normal, Ur Leukocyte Esterase 25 H, Urine RBC 0-5 SEEN, Urine WBC 5-10 SEEN, Ur Squamous Epith Cells 0 SEEN, Urine Bacteria 0 SEEN, Hyaline Casts 0-5 SEEN, Urine Mucus 0 SEEN 04/06/23 04:05: WBC 9.4, RBC 2.12 L, Hgb 7.8 L, Hct 24.1 L, MCV 113.7 H D, MCH 36.8 H, MCHC 32.4, RDW Std Deviation 86.5 H, RDW Coeff of Dilan 21.1 H, Plt Count 149 L, MPV 11.1, Immature Gran % (Auto) 2.100 H, Neut % (Auto) 80.2 H, Lymph % (Auto) 14.1 L, [place] % (Auto) 1.8, Eos % (Auto) 1.6, Baso % (Auto) 0.2, Absolute Neuts (auto) 7.5, Absolute Lymphs (auto) 1.33, Nucleated RBC % 0.3, Differential Comment SCANNED, Polychromasia RARE, Anisocytosis 2+, Macrocytosis 2+, Ovalocytes RARE, Sodium 136, Potassium 4.5, Chloride 106, Carbon Dioxide 22.0, Anion Gap 8, BUN 29 H, Creatinine 1.71 H, Estim Creat Clear Calc 40.91, Est GFR (MDRD) Af Amer 51 L, Est GFR (MDRD) Non-Af 42 L, BUN/Creatinine Ratio 17.0, Glucose 104, Calcium 8.0 L, Phosphorus 4.3, Magnesium 1.8, Total Bilirubin 0.50, AST 27, ALT 38, Alkaline Phosphatase 76, Total Protein 6.6, Albumin 3.6, Globulin 3.0, Albumin/Globulin Ratio 1.2, Triglycerides 249 H, Cholesterol 132, LDL Cholesterol 51, VLDL Cholesterol 50 H, HDL Cholesterol 31 L, PSA Screen 14.20 H, TSH 1.97 04/06/23 09:30: Retic Count 1.82 H, Immature Retic Fraction 22.10 H, Retic Hgb Equivalent 41.0 H, Ferritin 1340 H, Lactate Dehydrogenase 287 H, Direct Antiglob Test NEG w/POLYSPECIFIC 04/06/23 11:26: Hgb 8.5 L Micro: Microbiology 04/05/23 19:30 Stool Stool Occult Blood ([place]) - Final Rhythm Strip Rhythm Strip: Sinus Rhythm Imagaing Radiology Impression Chest X-Ray 04/05/23 19:05 IMPRESSION: No radiographic evidence of acute cardiopulmonary disease. Electronically Signed: Cameron Cody MD at 19:50 EST , Assessment & Plan Assessment/Plan (1) Acute blood loss anemia: (2) Acute kidney injury (ADORE) with acute tubular necrosis (ATN): (3) Near syncope: (4) Adverse drug reaction: QUALIFIERS: Encounter type: initial encounter Qualified Code(s): T50.905A - Adverse effect of unspecified drugs, medicaments and biological substances, initial encounter PLAN: Plan 72-year-old with past medical history of paroxysmal atrial fibrillation on flecainide and Eliquis who presented with near syncope and was discovered to have decreased hemoglobin [id number] blood loss anemia with macrocytosis of 123.3 fL and hemoglobin of 6.4 g/dL present on admission. He was transfused of 2 units of packed red blood cells. Macrocytic anemia typically occurs in alcoholic liver disease and not as much in VALENZUELA. It can occur in hemolytic anemia. However I would expect it is LDH and (indirect) bilirubin to be higher. His ferritin is increasing which is likely secondary to acute phase reactant. However he could be experiencing secondary hemochromatosis. I do not think he has primary hemochromatosis due to his transferrin saturation being 49%. He should be checked for other causes of secondary hemochromatosis including Ferroportin disease along with being checked for HFE gene mutation. Due to his presumed acute blood loss anemia he should undergo an upper endoscopy tomorrow to look for signs of chronic GI blood loss such as Casper's erosions, gastric antral vascular ectasia, angiodysplasia, telangiectasia, celiac sprue. He can also go back on his Eliquis tonight and hold it tomorrow morning and hopefully continue tomorrow night. Charges/Coding Visit Charges Inpatient E&M: 10972 Init Hosp L3
[2023-04-06] MEDS: APIXABAN 5 MG TABLET PO ×2 (15:23→21:03)
--- NOTE | 2023-04-06 15:41 | NURSING ---
04/06/23@1510- REPORT CALLED TO DAVID ARELLANO ON PCU. PT TRANSFERRED TO PCU ROOM 115 IN STABLE CONDITION.
[2023-04-06] MEDS: Tamsulosin HCl 0.4 MG Capsule PO (16:51)
[2023-04-06 18:46] LABS: Hemoglobin 8.4 g/dL (13.0-16.5)
[2023-04-06] MEDS: Pravastatin 40 MG Tablet PO (21:03)
[2023-04-06] MEDS: MELATONIN 3 MG TABLET PO (21:03)
[2023-04-07] VITALS (11 sets, daily range): BP systolic 126–139; BP diastolic 64–72; PULSE 51–64; RESP 15–18; TEMP 36.1–37.1; O2SAT 95–99; BMI 34.7
--- NOTE | 2023-04-07 | ESO_PTH ---
PATIENT: DELICIA SHEA LOC: [facility] U#:[id number] AGE/SX: 72/M ROOM: [facility] RE04/05/[address]: Dr. Julissa Sage MD : [id number] BED: 1 DIS: 04/08/2023 SPEC #: [id number] RECD: 04/07/23 14:28 STATUS: RAHAT REQ #: [id number] SETH: 04/07/23 00:[address]: Jose Monte DEPT: SURGICAL PATHOLOGY RECD BY: Zachery Parrish ENTERED: 04/08/23 08:21 SP TYPE: ESOPH BX OTHR DR: MD Dr. Cesar Crenshaw, DO Dr. Nisha Carreno, DO Dr. Rosalie Blackwell, DO MD Dr. Julissa Bunn MD Tissues: Esophagus, NOS Procedures: Surgery Specimen Level IV Comments: @ Ordering doctor for SUIV edited from to @ by JOSUE at 04/08/23 1531 @ Submitting doctor edited from to @ by CHICHIOD at 04/08/23 1538 HEADER OPERATION: EGD with biopsy and bipolar cautery PRE-OP DIAGNOSIS: GI bleed TISSUE SUBMITTED: Distal esophagus MICROSCOPIC DIAGNOSIS Distal esophagus, biopsy: Gastroesophageal junctional mucosa with mild chronic inflammation. No evidence of goblet cell metaplasia. See comment. AM:gurjit 04/09/2023 COMMENT Alcian blue/PAS stain with matched control supports the above diagnosis. MICROSCOPIC DESCRIPTION Slides are reviewed. GROSS DESCRIPTION Received in fixative is one container labeled with the patient's name and designated distal esophagus. The specimen consists of two irregular fragments of light holguin soft tissue that in aggregate measure 1.0 x 0.3 x 0.1 cm. The specimen is totally submitted in one cassette. / AM:gurjit 04/08/2023 TC:3 CPT: 58829, 22598
--- NOTE | 2023-04-07 04:22 | CPS ---
Pt is using sleep lab machine. cpap 10
[2023-04-07 05:36] LABS: Absolute Lymphocyte Count 1.09 X10^3/uL (0.83-4.51); Absolute Neutrophil Count 4.7 X10^3/uL (2.0-7.7); Basophil# 0.01 X10^3/uL; Basophil% 0.2 % (0-1); Eosinophil# 0.31 X10^3/uL; Eosinophils% 4.9 % (0-5); Hematocrit 24.5 % (40-54); Hemoglobin 7.9 g/dL (13.0-16.5); Lymphocyte # 1.09 X10^3/ul (0.83-4.51); Lymphocyte % 17.1 % (19-41); Mean Corp Hgb Conc 32.2 g/dL (32-36); Mean Corpuscular Hgb 36.4 pg (27.0-32.0); Mean Corpuscular Volume 112.9 fL (80-94); Mean Platelet Vol. 11.8 fl (6.2-12.0); Monocyte# 0.13 X10^3/uL; NRBC Flagged by Analyzer 0.3 % (0-5); Neutrophil # 4.68 X10^3/uL (2.7-7.7); Neutrophil % 73.4 % (47-70); POSITIVE MORPHOLOGY YES; Platelet Count 124 K/mm3 (150-450); RBC Distribution Width CV 21.2 % (11.6-14.6); RBC Distribution Width SD 88.1 fl (35.1-43.9); Red Blood Count 2.17 M/mm3 (4.6-6.2); White Blood Count 6.4 K/mm3 (4.4-11.0)
[2023-04-07 05:43] LABS: Differential Indicated SCAN CRITERIA MET
[2023-04-07 05:45] LABS: International Normalized Ratio 1.3; Prothrombin Time (Protime)PT. 15.7 SECONDS (11.7-14.9)
--- NOTE | 2023-04-07 05:55 | EKG12_ITS ---
Test Reason : AM EKG Blood Pressure : / mmHG Vent. Rate : 052 BPM Atrial Rate : 052 BPM P-R Int : 230 ms QRS Dur : 102 ms QT Int : 448 ms P-R-T Axes : 071 062 089 degrees QTc Int : 416 ms Sinus bradycardia with 1st degree A-V block Otherwise normal ECG When compared with ECG of 05-APR-2023 18:59, MANUAL COMPARISON REQUIRED, DATA IS UNCONFIRMED Confirmed by JOHN HANDY, IKE ([id number]), editor at large BOBY LAMAR ([id number]) on 04/08/2023 7:13:27 AM Referred By: Confirmed By:IKE LOPEZ MD
[2023-04-07 06:06] LABS: AST(SGOT) 23 U/L (15-37); Alanine Aminotransfer ALT/SGPT 33 U/L (16-61); Albumin, Serum 3.3 g/dL (3.2-5.0); Alkaline Phosphatase 71 U/L (45-117); Anion Gap 5 (5-15); BUN 25 mg/dL (7-18); BUN/Creat Ratio 22.1 RATIO (10-20); Calcium,Total 8.5 mg/dL (8.5-10.1); Chloride 110 mmol/L (98-107); Creatinine, Serum 1.13 mg/dL (0.70-1.30); EST Glomerular Filtration Rate 68 mL/min (>60); Est Glom Filt Rate - Afr Amer 82 mL/min (>60); Estimated Creatinine Clearance 61.91 ml/min; Globulin 3.2 g/dL (2.2-4.2); Glucose 97 mg/dL (74-106); Phosphorus 3.2 mg/dL (2.5-4.9); Potassium 4.7 mmol/L (3.5-5.1); Protein, Total 6.5 g/dL (6.4-8.2); Sodium Level 139 mmol/L (136-145)
[2023-04-07 06:24] LABS: Anisocytosis 1+
[2023-04-07] MEDS: Vitamin B Comp W-C Capsule 1 CAP PO (08:23)
[2023-04-07] MEDS: Multivitamins,Therapeutic Tablet 1 TABLET PO (08:26)
--- NOTE | 2023-04-07 09:21 | PCM.PN.CARD ---
Subjective Subjective Denies any complaints today. Patient is scheduled to have an EGD today in regards to his anemia. Objective Data Vital Signs: Vital Signs Temp Pulse Resp BP Pulse Ox O2 Del Method O2 Flow Rate 97.0 F L 62 16 133/66 H 95 Room Air 2 04/07/23 08:20 04/07/23 08:20 04/07/23 08:20 04/07/23 08:20 04/07/23 08:20 04/07/23 08:20 04/07/23 04:00 Oxygen Flow Rate (L/min) 2 Oxygen Delivery Method Room Air Weight: 242 lb 8.136 oz Body Mass Index (BMI) 34.7 Intake & Output: Intake and Output for Last 24 Hours 04/05/23 04/06/23 04/07/23 23:59 23:59 23:59 Intake Total 1527.5 / 1527.5 1552 / 1552 0 / 0 Output Total 50 / 50 6300 / 6300 200 / 200 Balance 1477.5 / 1477.5 -4748 / -4748 -200 / -200 Lab / Micro Data 04/07/23 05:06 04/07/23 05:06 Labs: Laboratory Results - last 24 hr 04/06/23 09:30: Retic Count 1.82 H, Immature Retic Fraction 22.10 H, Retic Hgb Equivalent 41.0 H, Ferritin 1340 H, Lactate Dehydrogenase 287 H, Direct Antiglob Test NEG w/POLYSPECIFIC 04/06/23 11:26: Hgb 8.5 L 04/06/23 18:35: Hgb 8.4 L 04/07/23 05:06: WBC 6.4, RBC 2.17 L, Hgb 7.9 L, Hct 24.5 L, MCV 112.9 H, MCH 36.4 H, MCHC 32.2, RDW Std Deviation 88.1 H, RDW Coeff of Dilan 21.2 H, Plt Count 124 L, MPV 11.8, Immature Gran % (Auto) 2.400 H, Neut % (Auto) 73.4 H, Lymph % (Auto) 17.1 L, [place] % (Auto) 2.0, Eos % (Auto) 4.9, Baso % (Auto) 0.2, Absolute Neuts (auto) 4.7, Absolute Lymphs (auto) 1.09, Nucleated RBC % 0.3, Anisocytosis 1+, PT 15.7 H, INR 1.3, Sodium 139, Potassium 4.7, Chloride 110 H, Carbon Dioxide 24.0, Anion Gap 5, BUN 25 H, Creatinine 1.13, Estim Creat Clear Calc 61.91, Est GFR (MDRD) Af Amer 82, Est GFR (MDRD) Non-Af 68, BUN/Creatinine Ratio 22.1 H, Glucose 97, Calcium 8.5, Phosphorus 3.2, Magnesium 2.0, Total Bilirubin 0.50, AST 23, ALT 33, Alkaline Phosphatase 71, Total Protein 6.5, Albumin 3.3, Globulin 3.2, Albumin/Globulin Ratio 1.0 Rhythm Strip Rhythm Strip: Sinus Rhythm Cardiology Labs/Tests 04/06/23 09:30: Ferritin 1340 H 04/06/23 11:26: Hgb 8.5 L 04/06/23 18:35: Hgb 8.4 L 04/07/23 05:06: WBC 6.4, RBC 2.17 L, Hgb 7.9 L, Hct 24.5 L, MCV 112.9 H, MCH 36.4 H, MCHC 32.2, Plt Count 124 L, MPV 11.8, Immature Gran % (Auto) 2.400 H, Neut % (Auto) 73.4 H, Lymph % (Auto) 17.1 L, [place] % (Auto) 2.0, Eos % (Auto) 4.9, Baso % (Auto) 0.2, Absolute Neuts (auto) 4.7, Nucleated RBC % 0.3, PT 15.7 H, INR 1.3, Sodium 139, Potassium 4.7, Chloride 110 H, Carbon Dioxide 24.0, Anion Gap 5, BUN 25 H, Creatinine 1.13, Est GFR (MDRD) Af Amer 82, Est GFR (MDRD) Non-Af 68, BUN/Creatinine Ratio 22.1 H, Glucose 97, Calcium 8.5, Phosphorus 3.2, Magnesium 2.0, Total Bilirubin 0.50 Rhythm: EKG: ECHO: Stress Test: Cardiac Cath: PCI: CT Surgery: Holter monitor: EPS: PPM: CXR: Chest CT Scan: Physical Exam Narrative Comfortable. Heart sounds 1 and 2 are noted. Regular. Chest clear to auscultation bilaterally. Alert oriented x 3. No ankle edema. Assessment & Plan Assessment/Plan (1) Paroxysmal atrial fibrillation: PLAN: Atrial fibrillation with slow ventricular response on presentation. Presently sinus tachycardia. Continue to hold diltiazem. Flecainide discontinued. If patient has recurrent paroxysms of atrial fibrillation, then will refer to EP for consideration for A-fib ablation. (2) Near syncope: PLAN: Likely vasovagal. Note severe anemia on presentation. Status post blood transfusion. (3) Essential hypertension: PLAN: Valsartan. (4) Anemia: QUALIFIERS: Anemia type: unspecified type Qualified Code(s): D64.9 - Anemia, unspecified PLAN: GI input appreciated. For EGD this morning. If no bleeding source identified as cause of his anemia, then consider consultation with hematology. PLAN: Plan Will see patient on an as-needed basis. Please call if needed. Follow-up as outpatient.
[2023-04-07 09:47] LABS: Vitamin B12 1640 pg/mL (211-911)
--- NOTE | 2023-04-07 09:52 | PN.HOSP_ITS ---
Reason for Visit Reason for Visit: Diagnoses Acute posthemorrhagic anemia (04/05/23) Anemia, unspecified (04/05/23) Essential (primary) hypertension (04/05/23) Paroxysmal atrial fibrillation (04/05/23) Acute kidney failure with tubular necrosis (04/05/23) Acute kidney failure, unspecified (04/05/23) Bradycardia, unspecified (04/05/23) Syncope and collapse (04/05/23) Elevated prostate specific antigen [PSA] (04/05/23) Adverse effect of unspecified drugs, medicaments and biological substances, initial encounter (04/05/23) Subjective Subjective The patient denies any chest pain, shortness of breath, dizziness at this time Objective Data Objective Data Vital Signs: Vital Signs Temp Pulse Resp BP Pulse Ox O2 Del Method O2 Flow Rate 97.0 F L 62 16 133/66 H 95 Room Air 2 04/07/23 08:20 04/07/23 08:20 04/07/23 08:20 04/07/23 08:20 04/07/23 08:20 04/07/23 08:20 04/07/23 07:35 Oxygen Flow Rate (L/min) 2 Oxygen Delivery Method Room Air Weight: 110 kg Body Mass Index (BMI) 34.7 Intake & Output: Intake and Output for Last 24 Hours 04/05/23 04/06/23 04/07/23 23:59 23:59 23:59 Intake Total 1527.5 / 1527.5 1552 / 1552 0 / 0 Output Total 50 / 50 6300 / 6300 200 / 200 Balance 1477.5 / 1477.5 -4748 / -4748 -200 / -200 Lab / Micro Data 04/07/23 05:06 04/07/23 05:06 Labs: Laboratory Results - last 24 hr 04/05/23 21:37: Vitamin B12 1640 H 04/06/23 09:30: Ferritin 1340 H, Lactate Dehydrogenase 287 H, Direct Antiglob Test NEG w/POLYSPECIFIC 04/06/23 11:26: Hgb 8.5 L 04/06/23 18:35: Hgb 8.4 L 04/07/23 05:06: WBC 6.4, RBC 2.17 L, Hgb 7.9 L, Hct 24.5 L, MCV 112.9 H, MCH 36.4 H, MCHC 32.2, RDW Std Deviation 88.1 H, RDW Coeff of Dilan 21.2 H, Plt Count 124 L, MPV 11.8, Immature Gran % (Auto) 2.400 H, Neut % (Auto) 73.4 H, Lymph % (Auto) 17.1 L, [place] % (Auto) 2.0, Eos % (Auto) 4.9, Baso % (Auto) 0.2, Absolute Neuts (auto) 4.7, Absolute Lymphs (auto) 1.09, Nucleated RBC % 0.3, Anisocytosis 1+, PT 15.7 H, INR 1.3, Sodium 139, Potassium 4.7, Chloride 110 H, Carbon Dioxide 24.0, Anion Gap 5, BUN 25 H, Creatinine 1.13, Estim Creat Clear Calc 61.91, Est GFR (MDRD) Af Amer 82, Est GFR (MDRD) Non-Af 68, BUN/Creatinine Ratio 22.1 H, Glucose 97, Calcium 8.5, Phosphorus 3.2, Magnesium 2.0, Total Bilirubin 0.50, AST 23, ALT 33, Alkaline Phosphatase 71, Total Protein 6.5, Albumin 3.3, Globulin 3.2, Albumin/Globulin Ratio 1.0 Micro: Microbiology 04/05/23 19:30 Stool Stool Occult Blood ([place]) - Final Rhythm Strip Rhythm Strip: Sinus Rhythm Physical Exam Narrative General: Alert, oriented, no apparent distress HEENT: Atraumatic, normocephalic Eyes: Anicteric, normal conjunctiva, extraocular movements grossly intact Neck: Supple Respiratory: Clear to auscultation bilaterally, normal respiratory effort Cardiovascular: Heart rate 40s but regular GI: Soft, nontender, nondistended Extremities: No edema Musculoskeletal: Moving all extremities Neuro: No overt focal neurological deficits Skin: No rashes appreciated Psych: Cooperative Assessment & Plan Assessment/Plan (1) Near syncope: (2) Bradycardia: (3) ADORE (acute kidney injury): (4) Acute anemia: (5) Abnormal PSA: PLAN: Plan Near syncope with bradycardia in the setting of paroxysmal atrial fibrillation -Seen by cardiology this morning and they recommend discontinuing his flecainide and restarting his Cardizem tomorrow morning -They suspect that his syncope was vasovagal -Continue to monitor on telemetry -Patient has had a recent echo in October that showed normal EF of 55% with no regional wall motion abnormalities, mild to moderate mitral valve insufficiency and a right ventricular systolic pressure of 30 mmHg. -Cardiology is following-appreciate input -04/07: If patient has further paroxysmal of A-fib will likely need referral to EP. Cardiology will follow up on as needed basis and recommended outpatient follow-up. Continue to monitor on telemetry, continue anticoagulation Acute on chronic anemia -Baseline hemoglobin has been slowly trending down his hemoglobin was normal in 2018 and found to be 12.7 in May 2022 -Since May his hemoglobin has slowly been trending down with his most recent hemoglobin being 10.9 on 10/30/2022 -Hemoglobin was found to be 6.4 on presentation -Patient was transfused 2 units of packed red blood cells on 04/05/2023 -Hemoccult was negative and iron studies were normal -Patient with recent B12 in November however this was unremarkable but repeat is pending -Folic acid is normal -Haptoglobin pending -Reticulocyte count is low -TSH within normal limits -Patient may need bone marrow biopsy depending on pending studies -Patient had been started on Eliquis in the last 4 to 5 months for paroxysmal atrial fibrillation -Hold Eliquis for now -We will cycle hemoglobin every 8 hours -Doubt this is acute blood loss anemia related to GI bleeding with a negative Hemoccult however cardiology has consulted gastroenterology -Hematology/oncology consult is pending and they plan to evaluate the patient tomorrow a.m. with current lab pending at the request -04/07: EGD today, hopefully able to go back on Eliquis tonight, additionally hematology/oncology consult pending ADORE -Baseline serum creatinine appears to be around 1.0-1.2 -Serum creatinine on presentation was 2.0 but is trending down and was 1.7 this morning -We will continue to hold losartan and restart if able -Avoid nephrotoxins as able -No need for nephrology consult or renal replacement therapy -DC Kitchen -If serum creatinine does not continue to trend down may need further workup -04/07: Continues to improve PSA -We will add Flomax and discontinue Kitchen -Unclear of significance as the PSA was obtained after Kitchen catheter placement -Would recommend outpatient follow-up with repeat PSA after discharge and urology follow-up if remains elevated Hypertension -Holding her renal function -Holding Cardizem due to bradycardia with plans to reinitiate tomorrow per cardiology instructions -As needed hydralazine ordered for systolic pressure greater than 150 -04/07: Cardiology evaluated, not presently on Cardizem due to low rate, if further paroxysms of A-fib may need EP referral History of paroxysmal atrial fibrillation -Eliquis on hold due to anemia--> restart as soon as able -Restart Cardizem tomorrow morning per cardiology instructions -Discontinue flecainide indefinitely -Monitor on telemetry -04/07: Cardiology evaluated, flecainide has been discontinued and was also recommended to continue to hold diltiazem History of hyperlipidemia -Continue home pravastatin History of nonobstructive CAD -Cardiac catheterization done in 2019 that showed mild luminal irregularities of the proximal LAD but angiographically normal circumflex and RCA -Hold aspirin due to anemia and restart when able Nonalcoholic fatty liver disease -Biopsy was obtained and demonstrated -Ferritin suspected to be elevated due to his fatty liver disease and iron studies are normal -GI is following as an outpatient History of hepatic cyst -GI is following as an outpatient and follow-up per them FATIMAH -Continue nocturnal CPAP History of DVT/PE -Eliquis is on hold for severe anemia -Restart as soon as possible -SCDs Alcohol use without abuse -Patient states he drinks socially once in a while but my no means drinks on a daily basis -Was drinking prior to admission while he was watching the football game Obesity -BMI is 36.4 -Complicates treatment, prognosis, outcomes -Recommend weight loss DVT prophylaxis -SCDs for now and restart Eliquis once able CODE STATUS -Full code is verified on presentation Charges/Coding Visit Charges Inpatient E&M: 23669 Subs Hosp L2
--- NOTE | 2023-04-07 10:55 | CASEMGMT ---
RN CM Face to Face with patient for initial transition planning/care coordination assessment. RN CM introduced self and role at [facility]. Patient lying in bed, alert and oriented, at bedside. Patient willing to participate in assessment and is able to answer all questions appropriately. Care providers, pharmacy, and demographics verified. Patient wishes to discharge home, denies need for home health at this time. Patient states he has no further needs or concerns at this time. CM to follow for discharge planning needs that may arise. PCP: No PCP, list provide and patient encouraged to schedule appt Specialists: Tiffany, die try out worker stamping; Friend, GI Preferred Pharmacy: [facility], [facility] Retail at discharge. Insurance: [employer] Prescription Benefit: yes Living Will/HPOA: none LNOK: Living Arrangements: Patient lives with in a single story home with 2 steps and railing to enter the home. Patient is independent at home. Transportation: self, DME/HHC: Patient has raised toilet at home. No previous HHC or SNF Disposition Plan: Patient to discharge home with family support and follow-up plans in place. Niurka CONNOLLY, RN, CM
--- NOTE | 2023-04-07 11:40 | ONC.CONSULT ---
Assessment & Plan Assessment/Plan (1) Macrocytic anemia: Status: Chronic Code(s): D53.9 - Nutritional anemia, unspecified Plan: Patient was admitted with isolated severe symptomatic anemia with a hemoglobin of 6.4 yet was not in hemorrhagic shock and had a baseline hemoglobin 10 to 12 g per DL in 2022 more consistent with a chronic may be a subacute process related to recent initiation of systemic anticoagulation for atrial fibrillation. Patient reports alcohol consumption averaging 2-3 occasions per week. Bone marrow suppression from alcohol consumption is at least contributing factor to his chronic macrocytosis. Evaluation shows no evidence of hemolysis, or pure red cell aplasia (reticulocyte count 1.82%), no evidence for B12 deficiency. His iron profile shows elevated ferritin however this was done after blood transfusion and with underlying chronic liver disease. Of note he had been tested for hereditary hemochromatosis in November 2022 and the work-up is negative. Recommendations: From hematology: 1. Defer to GI evaluation for source of chronic plus or minus episodic acute external blood loss. He is scheduled for EGD today April 07, 2023.. 2. Abstain from alcohol for at least 3 months. 3. Bone marrow aspirate and biopsy to evaluate for possible concomitant primary bone marrow disease such as MDS after 3 months of abstinence from alcohol ( avoid megaloblastic changes secondary to toxic effect of alcohol on bone). Patient seen with his , impression and plan discussed. Follow-up 1 month after discharge and tentatively bone marrow in approximately 3 months. HPI Consult Data Date of Service:: 04/07/23 PCP / Referring Provider: Dr. Nisha Carreno DO Attending: Dr. Julissa Sage MD Chief Complaint Chief Complaint: Lightheadedness and shortness of breath History of Present Illness History of Present Illness: Patient hospitalized April 05, 2023 with lightheadedness and shortness of breath and noted to be severely anemic (see lab section for business development representative blood counts). Patient had not noted any external bleeding. He drinks alcohol averaging 2-3 occasions per week. He was started 2 to 3 months earlier on systemic anticoagulation for atrial fibrillation. 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 Rekha Sena MD) Abnormal stress test Essential hypertension History of DVT (deep vein thrombosis) History of DVT (deep vein thrombosis) History of left heart catheterization (LHC) (~04/23/19) History of pulmonary embolism Hyperlipemia Macrocytic anemia Paroxysmal atrial fibrillation Persistent atrial fibrillation Premature ventricular contraction Sleep apnea Home Medications aspirin 81 mg tablet,delayed release (Adult Low Dose Aspirin) 81 mg PO DAILY 02/11/18 [History Last Taken 04/05/23] multivitamin 1 tab PO DAILY 02/11/18 [History Last Taken 04/05/23] valsartan 320 mg tablet (Diovan) 320 mg PO DAILY #90 tabs 10/08/22 [Rx Last Taken 04/05/23] apixaban 5 mg tablet (Eliquis) 5 mg PO BID #60 tabs 11/20/22 [Rx Last Taken 04/05/23] diltiazem HCl 180 mg capsule,extended release 24 hr (Cardizem CD) 180 mg PO BID #180 caps 03/11/23 [Rx Last Taken 04/05/23] flecainide 150 mg tablet 150 mg PO BID #180 tabs 03/11/23 [Rx Last Taken 04/05/23] pravastatin 40 mg tablet 40 mg PO DAILY #90 tabs 03/17/23 [Rx Last Taken 04/04/23] vitamin B complex (B Complex-Vitamin B12 tablet) 1 tab PO DAILY 04/05/23 [History Last Taken 04/05/23] Allergy/AdvReac Type Severity Reaction Status Date / Time No Known Allergies Allergy Verified 04/05/23 18:51 Family History Father Myocardial infarction, Onset Age: 48 Hypertension Sister Atrial fibrillation Surgical History History of right hip replacement Social History Smoking Status: Never smoker alcohol intake: current details: occasional substance use type: does not use ROS Constitutional Constitutional: Reports fatigue; Denies fever(s), night sweats, poor appetite or weight loss ENT HEENT: Denies dysphagia Cardiovascular Cardiovascular: Reports dyspnea; Denies chest pain, edema or palpitations Respiratory/Chest Respiratory/Chest: Reports dyspnea on exertion; Denies hemoptysis Gastrointestinal Gastrointestinal: Denies change in bowel habits, coffee ground emesis, dyspepsia, dysphagia, hematochezia or melena Genitourinary Genitourinary: Reports change in urinary stream; Denies hematuria Musculoskeletal Musculoskeletal: Denies back pain Integumentary Integumentary: Denies new lesions or unusual bruising Neurologic Neurologic: Denies abnormal speech or focal weakness Endocrine Endocrinology: Denies flushing Hematologic/Lymphatic Hematologic/Lymphatic: Denies easy bleeding, easy bruising or lymphadenopathy Physical Exam Narrative Seen with his Const alert, oriented x3 and no apparent distress General Appearance: cooperative Nutritional Appearance: obese HEENT normocephalic Eyes no scleral icterus Neck General: Negative for lymphadenopathy Lymph Lymphatic: no lymphadenopathy noted Resp clear to auscultation bilaterally Cardio Rhythm: abnormal rhythm irregularly irregular GI soft to palpation and non-tender Extremity no clubbing, cyanosis or edema Skin no rashes or lesions noted Neuro CN's II-XII intact bilaterally, moves all extremities and no focal motor deficits Psych mental status grossly normal Vital Signs Temperature 97.0 F L 04/07/23 08:20 Temperature Source Temporal 04/07/23 08:20 Pulse Rate 62 04/07/23 08:20 Pulse Strength Weak (1+) 04/07/23 08:33 Respiratory Rate 16 04/07/23 08:20 Respiratory Effort Normal, Non-Labored 04/07/23 08:20 Respiratory Depth Normal 04/07/23 08:20 Respiratory Pattern Normal 04/07/23 08:20 Blood Pressure 133/66 H 04/07/23 08:20 Blood Pressure Mean 88 04/07/23 08:20 Blood Pressure Source Monitor 04/07/23 08:20 Blood Pressure Position Semi-Fowlers 04/07/23 08:20 Blood Pressure Location Right Arm 04/07/23 08:20 Pulse Ox 95 04/07/23 08:20 Oxygen Delivery Method Room Air 04/07/23 08:20 Oxygen Flow Rate (L/min) 2 04/07/23 07:35 Laboratory Results - last 24 hr 04/05/23 21:37: Vitamin B12 1640 H 04/06/23 18:35: Hgb 8.4 L 04/07/23 05:06: WBC 6.4, RBC 2.17 L, Hgb 7.9 L, Hct 24.5 L, MCV 112.9 H, MCH 36.4 H, MCHC 32.2, RDW Std Deviation 88.1 H, RDW Coeff of Dilan 21.2 H, Plt Count 124 L, MPV 11.8, Immature Gran % (Auto) 2.400 H, Neut % (Auto) 73.4 H, Lymph % (Auto) 17.1 L, Dyer % (Auto) 2.0, Eos % (Auto) 4.9, Baso % (Auto) 0.2, Absolute Neuts (auto) 4.7, Absolute Lymphs (auto) 1.09, Nucleated RBC % 0.3, Anisocytosis 1+, PT 15.7 H, INR 1.3, Sodium 139, Potassium 4.7, Chloride 110 H, Carbon Dioxide 24.0, Anion Gap 5, BUN 25 H, Creatinine 1.13, Estim Creat Clear Calc 61.91, Est GFR (MDRD) Af Amer 82, Est GFR (MDRD) Non-Af 68, BUN/Creatinine Ratio 22.1 H, Glucose 97, Calcium 8.5, Phosphorus 3.2, Magnesium 2.0, Total Bilirubin 0.50, AST 23, ALT 33, Alkaline Phosphatase 71, Total Protein 6.5, Albumin 3.3, Globulin 3.2, Albumin/Globulin Ratio 1.0 Laboratory Tests 04/14/19 04/14/19 05/14/22 12:18 12:18 14:17 Hgb 14.3 MCV 97.1 H 109.0 H Retic Count Iron Saturation Ferritin Lactate Dehydrogenase Vitamin B12 TSH Ethyl Alcohol Direct Antiglob Test 05/14/22 09/12/22 09/12/22 14:17 08:29 08:29 Hgb 12.7 L 11.8 L MCV 115.9 H Retic Count Iron Saturation Ferritin Lactate Dehydrogenase Vitamin B12 TSH Ethyl Alcohol Direct Antiglob Test 09/12/22 10/30/22 10/30/22 08:29 09:35 09:35 Hgb 10.9 L MCV 117.3 H Retic Count Iron Saturation Ferritin 930 H Lactate Dehydrogenase Vitamin B12 TSH Ethyl Alcohol Direct Antiglob Test 10/30/22 11/20/22 11/20/22 09:35 09:00 09:00 Hgb MCV Retic Count Iron Saturation 41.6 41.8 Ferritin Lactate Dehydrogenase Vitamin B12 1224 H TSH Ethyl Alcohol Direct Antiglob Test 04/05/23 04/05/23 04/05/23 19:03 19:03 21:37 Hgb 6.4 L MCV 123.3 H Retic Count Iron Saturation 49.0 Ferritin Lactate Dehydrogenase Vitamin B12 TSH Ethyl Alcohol Direct Antiglob Test 04/05/23 04/05/23 04/06/23 21:37 21:37 04:05 Hgb MCV 113.7 H D Retic Count Iron Saturation Ferritin Lactate Dehydrogenase Vitamin B12 1640 H TSH Ethyl Alcohol 79.0 Direct Antiglob Test 04/06/23 04/06/23 04/06/23 04:05 04:05 09:30 Hgb 7.8 L MCV Retic Count 1.82 H Iron Saturation Ferritin Lactate Dehydrogenase Vitamin B12 TSH 1.97 Ethyl Alcohol Direct Antiglob Test 04/06/23 04/06/23 04/06/23 09:30 09:30 09:30 Hgb MCV Retic Count Iron Saturation Ferritin 1340 H Lactate Dehydrogenase 287 H Vitamin B12 TSH Ethyl Alcohol Direct Antiglob Test NEG w/POLYSPECIFIC 04/06/23 04/06/23 04/07/23 11:26 18:35 05:06 Hgb 8.5 L 8.4 L MCV 112.9 H Retic Count Iron Saturation Ferritin Lactate Dehydrogenase Vitamin B12 TSH Ethyl Alcohol Direct Antiglob Test 04/07/23 05:06 Hgb 7.9 L MCV Retic Count Iron Saturation Ferritin Lactate Dehydrogenase Vitamin B12 TSH Ethyl Alcohol Direct Antiglob Test Laboratory Tests 04/14/19 04/14/19 05/14/22 12:18 12:18 14:17 Hgb 14.3 MCV 97.1 H 109.0 H Retic Count Iron Saturation Ferritin Lactate Dehydrogenase Vitamin B12 TSH Ethyl Alcohol Direct Antiglob Test 05/14/22 09/12/22 09/12/22 14:17 08:29 08:29 Hgb 12.7 L 11.8 L MCV 115.9 H Retic Count Iron Saturation Ferritin Lactate Dehydrogenase Vitamin B12 TSH Ethyl Alcohol Direct Antiglob Test 09/12/22 10/30/22 10/30/22 08:29 09:35 09:35 Hgb 10.9 L MCV 117.3 H Retic Count Iron Saturation Ferritin 930 H Lactate Dehydrogenase Vitamin B12 TSH Ethyl Alcohol Direct Antiglob Test 10/30/22 11/20/22 11/20/22 09:35 09:00 09:00 Hgb MCV Retic Count Iron Saturation 41.6 41.8 Ferritin Lactate Dehydrogenase Vitamin B12 1224 H TSH Ethyl Alcohol Direct Antiglob Test 04/05/23 04/05/23 04/05/23 19:03 19:03 21:37 Hgb 6.4 L MCV 123.3 H Retic Count Iron Saturation 49.0 Ferritin Lactate Dehydrogenase Vitamin B12 TSH Ethyl Alcohol Direct Antiglob Test 04/05/23 04/05/23 04/06/23 21:37 21:37 04:05 Hgb MCV 113.7 H D Retic Count Iron Saturation Ferritin Lactate Dehydrogenase Vitamin B12 1640 H TSH Ethyl Alcohol 79.0 Direct Antiglob Test 04/06/23 04/06/23 04/06/23 04:05 04:05 09:30 Hgb 7.8 L MCV Retic Count 1.82 H Iron Saturation Ferritin Lactate Dehydrogenase Vitamin B12 TSH 1.97 Ethyl Alcohol Direct Antiglob Test 04/06/23 04/06/23 04/06/23 09:30 09:30 09:30 Hgb MCV Retic Count Iron Saturation Ferritin 1340 H Lactate Dehydrogenase 287 H Vitamin B12 TSH Ethyl Alcohol Direct Antiglob Test NEG w/POLYSPECIFIC 04/06/23 04/06/23 04/07/23 11:26 18:35 05:06 Hgb 8.5 L 8.4 L MCV 112.9 H Retic Count Iron Saturation Ferritin Lactate Dehydrogenase Vitamin B12 TSH Ethyl Alcohol Direct Antiglob Test 04/07/23 05:06 Hgb 7.9 L MCV Retic Count Iron Saturation Ferritin Lactate Dehydrogenase Vitamin B12 TSH Ethyl Alcohol Direct Antiglob Test Diagnostic Data Chest X-Ray 04/05/23 19:05 IMPRESSION: No radiographic evidence of acute cardiopulmonary disease. Electronically Signed: Cameron Cody MD at 19:50 EST ,
[2023-04-07] MEDS: Lactated Ringers 1,000 ML 15 ML IV (12:54)
[2023-04-07 13:25] LABS: Pathologist Review Reviewed
--- NOTE | 2023-04-07 13:36 | OP.EGD_ITS ---
Patient Name: Wm Santacruz Procedure Date: 04/07/2023 1:24 PM Date of : 1950 Age: 72 Procedure: Upper GI endoscopy Indications: Iron deficiency anemia Providers: Jose Monte DO Medicines: Monitored Anesthesia Care Patient Profile: This is a 72 year old male. Refer to note in patient chart for documentation of history and physical. Patient has symptoms of acute dyspepsia. Complications: No immediate complications. Procedure: Pre-Anesthesia Assessment: - Prior to the procedure, a History and Physical was performed, and patient medications and allergies were reviewed. The risks and benefits of the procedure and the sedation options and risks were discussed with the patient. All questions were answered and informed consent was obtained. Patient identification and proposed procedure were verified by the physician. Mental Status Examination: normal. Prophylactic Antibiotics: The patient does not require prophylactic antibiotics. Prior Anticoagulants: The patient has taken no anticoagulant or antiplatelet agents. ASA Grade Assessment: III - A patient with severe systemic disease. After reviewing the risks and benefits, the patient was deemed in satisfactory condition to undergo the procedure. The anesthesia plan was to use monitored anesthesia care (MAC). Immediately prior to administration of medications, the patient was re-assessed for adequacy to receive sedatives. The heart rate, respiratory rate, oxygen saturations, blood pressure, adequacy of pulmonary ventilation, and response to care were monitored throughout the procedure. The physical status of the patient was re-assessed after the procedure. After obtaining informed consent, the endoscope was passed under direct vision. Throughout the procedure, the patient's blood pressure, pulse, and oxygen saturations were monitored continuously. The gastroscope was introduced through the mouth, and advanced to the second part of duodenum. The upper GI endoscopy was accomplished with ease. The patient tolerated the procedure well. Scope In: 1:26:54 PM Scope Out: 1:31:12 PM Total Procedure Duration Time 0 hours 4 minutes 18 seconds Findings: The Z-line was irregular and was found 39 cm from the incisors. Biopsies were taken with a cold forceps for histology. Verification of patient identification for the specimen was done. Estimated blood loss was minimal. A hiatal hernia was present. A single 5 mm angiodysplastic lesion with bleeding was found on the lesser curvature of the stomach. Coagulation for hemostasis using heater probe was successful. Estimated blood loss was minimal. No gross lesions were noted in the second portion of the duodenum. Impression: - Z-line irregular, 39 cm from the incisors. Biopsied. - Hiatal hernia. - A single bleeding angiodysplastic lesion in the stomach. Treated with a heater probe. - No gross lesions in the second portion of the duodenum. Recommendation: - Return patient to [facility] for [facility] care. - Resume previous diet. - Continue present medications. - Await pathology results. Procedure Code(s): --- Professional --- 08019, 59, Esophagogastroduodenoscopy, flexible, transoral; with control of bleeding, any method 11505, Esophagogastroduodenoscopy, flexible, transoral; with biopsy, single or multiple CPT copyright 2021 [employer]. All rights reserved. The codes documented in this report are preliminary and upon heat treating furnace tender review may be revised to meet current compliance requirements. Jose Monte DO 04/07/2023 1:35:43 PM This report has been signed electronically. Number of Addenda: 0 Note Initiated On: 04/07/2023 1:24 PM
--- NOTE | 2023-04-07 13:36 | OP.CCLET_ITS ---
04/07/2023 Nisha Carreno [address] [place] [address] Re : Upper GI endoscopy procedure for Wm Santacruz Dear Dr. Carreno This procedure was performed on Friday, April 07, 2023. My impressions and recommendations are as follows: Impressions : - Z-line irregular, 39 cm from the incisors. Biopsied. - Hiatal hernia. - A single bleeding angiodysplastic lesion in the stomach. Treated with a heater probe. - No gross lesions in the second portion of the duodenum. Recommendations : - Return patient to [facility] for ongoing care. - Resume previous diet. - Continue present medications. - Await pathology results. My findings are described in the full procedure note, which is enclosed. If I can be of further assistance, please feel free to contact me at . Sincerely, Jose Monte, 04/07/2023 1:35:43 PM This report has been signed electronically.
--- NOTE | 2023-04-07 15:06 | CASEMGMT ---
WM notified patient and his that patient's Healthcare Power of Tempering Kiln Tender and Healthcare Living Will are not on file at [facility]. Patient's was going to check to make sure they have the documents and if not complete them at [facility] sometime. No Adams EBD TEACHER TORIE
--- NOTE | 2023-04-07 15:44 | CHAPLAIN ---
Type of Pastoral Visit _x__ Initial Visit ___ Follow-up Visit ___ On-call Visit ___ General Patient Visit ___ Spiritual Assessment ___ Family Conference ___ Bereavement ___ Rapid Response ___ Code Blue ___ Other (describe below) Pastoral Care Referral From _x__ Patient ___ Family ___ Nurse ___ Physician ___ Dukey Rider ___ Railroad Car Repairman ___ Other (describe below) Sacrament/Intervention _x__ Active listening ___ Anointing ___ Temple ___ Bereavement ___ Communion ___ Janeth exploration ___ _x__ Life review _x__ Prayer ___ Reconciliation ___ Sacrament of Sick _x__ Supportive presence ___ Wedding ___ Other (describe below) Pastoral Comments patient and spouse are in the room and both are very welcoming to spiritual care support; pt talks about his health history and recent issues; pt is waiting on more test results and possibly more testing too; pt states he is handling this well but certainly wants to have a few more years and the ability to enjoy the grandchildren growing up; is interactive in the conversation about their life and being retired; pt welcomes prayer and presence for support
[2023-04-07] MEDS: Tamsulosin HCl 0.4 MG Capsule PO (17:02)
[2023-04-07] MEDS: APIXABAN 5 MG TABLET PO (20:47)
[2023-04-07] MEDS: Pravastatin 40 MG Tablet PO (20:47)
[2023-04-07] MEDS: MELATONIN 3 MG TABLET PO (20:49)
[2023-04-08 03:02] VITALS: BP 130/63; PULSE 53; RESP 12; TEMP 36.6; O2SAT 96
[2023-04-08 04:09] VITALS: BMI 34.5
[2023-04-08 05:07] LABS: Haptoglobin 123 mg/dL (34-355)
[2023-04-08 07:22] LABS: Absolute Lymphocyte Count 1.23 X10^3/uL (0.83-4.51); Absolute Neutrophil Count 3.7 X10^3/uL (2.0-7.7); Basophil# 0.02 X10^3/uL; Basophil% 0.4 % (0-1); Eosinophil# 0.37 X10^3/uL; Eosinophils% 6.6 % (0-5); Hematocrit 25.8 % (40-54); Hemoglobin 8.1 g/dL (13.0-16.5); Lymphocyte # 1.23 X10^3/ul (0.83-4.51); Lymphocyte % 21.8 % (19-41); Mean Corp Hgb Conc 31.4 g/dL (32-36); Mean Corpuscular Hgb 36.2 pg (27.0-32.0); Mean Corpuscular Volume 115.2 fL (80-94); Mean Platelet Vol. 11.7 fl (6.2-12.0); Monocyte# 0.16 X10^3/uL; Monocyte% 2.8 % (0-10); NRBC Flagged by Analyzer 0 % (0-5); Neutrophil # 3.69 X10^3/uL (2.7-7.7); Neutrophil % 65.4 % (47-70); POSITIVE MORPHOLOGY YES; Platelet Count 135 K/mm3 (150-450); Red Blood Count 2.24 M/mm3 (4.6-6.2); White Blood Count 5.6 K/mm3 (4.4-11.0)
[2023-04-08 07:33] LABS: Differential Indicated SCAN CRITERIA MET
[2023-04-08 07:44] LABS: Anion Gap 2 (5-15); BUN 21 mg/dL (7-18); BUN/Creat Ratio 21.2 RATIO (10-20); Calcium,Total 8.9 mg/dL (8.5-10.1); Chloride 109 mmol/L (98-107); Creatinine, Serum 0.99 mg/dL (0.70-1.30); EST Glomerular Filtration Rate 79 mL/min (>60); Est Glom Filt Rate - Afr Amer 96 mL/min (>60); Estimated Creatinine Clearance 70.66 ml/min; Glucose 98 mg/dL (74-106); Potassium 4.8 mmol/L (3.5-5.1); Sodium Level 139 mmol/L (136-145)
[2023-04-08 08:53] LABS: Anisocytosis 2+; Differential Comment SCANNED; Macrocytosis 2+; Reactive Lymphocyte 2+
[2023-04-08 09:02] VITALS: BP 158/66; PULSE 66; RESP 14; TEMP 36.3; O2SAT 98
[2023-04-08] MEDS: Multivitamins,Therapeutic Tablet 1 TABLET PO (09:17)
[2023-04-08] MEDS: APIXABAN 5 MG TABLET PO (09:18)
[2023-04-08] MEDS: Vitamin B Comp W-C Capsule 1 CAP PO (09:22)
--- NOTE | 2023-04-08 12:11 | DS.PCM_ITS ---
Providers Date of Admission: 04/05/23 Date of Discharge: 04/08/23 Primary Care Physician: Dr. Nisha Carreno, Consultations 04/05/23 20:27 Consult: Cardiology Routine Consulting Provider: Gordo Allen Reason for Consult: Symptomatic bradycardia and hypotension partially due to adverse drug react EMERGENT Consult: No MD Notified: Yes Date Notified: 04/06/23 Time Notified: 07:45 Method of Notification: Text Method of Consult:: In-Person 04/05/23 21:12 Consult: Oncology/Hematology Routine Consulting Provider: Rekha Sena Reason for Consult: Severe anemia with abnormal CBC differential EMERGENT Consult: No MD Notified: Yes Date Notified: 04/06/23 Time Notified: 07:42 Method of Notification: Text Method of Consult:: In-Person 04/06/23 10:17 Consult: Gastroenterology Routine Consulting Provider: Aura Gastroenter[facility] Reason for Consult: Acute anemia EMERGENT Consult: No MD Notified: Yes Date Notified: 04/06/23 Time Notified: 10:18 Method of Notification: Text Reason For Visit: Lightheadedness and SOB Diagnosis Discharge Diagnosis (1) Macrocytic anemia: Status: Chronic Code(s): D53.9 - Nutritional anemia, unspecified Plan Near syncope with bradycardia in the setting of paroxysmal atrial fibrillation Acute on chronic anemia- likely hypoproliferative ADORE- resolved PSA- elevated Hypertension History of paroxysmal atrial fibrillation History of hyperlipidemia History of nonobstructive CAD Nonalcoholic fatty liver disease History of hepatic cyst FATIMAH History of DVT/PE Alcohol use without abuse Obesity Medications at Discharge Home Medications aspirin 81 mg tablet,delayed release (Adult Low Dose Aspirin) 81 mg PO DAILY 02/11/18 multivitamin 1 tab PO DAILY 02/11/18 valsartan 320 mg tablet (Diovan) 320 mg PO DAILY #90 tabs 10/08/22 apixaban 5 mg tablet (Eliquis) 5 mg PO BID #60 tabs 11/20/22 pravastatin 40 mg tablet 40 mg PO DAILY #90 tabs 03/17/23 vitamin B complex (B Complex-Vitamin B12 tablet) 1 tab PO DAILY 04/05/23 Hospital Course Summary of Care Provided Minutes Spent on Discharge: 32 Hospital Course: DELICIA SHEA, is a 72 M with a past medical history of essential hypertension, hyperlipidemia, morbid obesity; with BMI of 40 this admission, obstructive sleep apnea, nonalcoholic fatty liver disease, history of DVT/PE, history of left heart catheterization (2019) and paroxysmal atrial fibrillation; on flecainide, diltiazem, aspirin and Eliquis who presents to [facility] ER complaining of lightheadedness and shortness of breath. Earlier in the day he began having the symptoms of lightheadedness that caused him to drop to his knee but he did not lose consciousness, friend checked his heart rate and it was in the low 30s and EMS was called. Patient was bradycardic and hypotensive, given atropine in the field and improved blood pressure into the 90s systolic and heart rates 40s to 50s. For his heart rate cardiology was contacted and discontinued his Cardizem and flecainide, even with these discontinued heart rate maintained in the 50s but was in sinus rhythm, ultimately it was decided to avoid putting him under rate control with plans for EP evaluation in the future if he were to have recurrence of A-fib. During patient's stay he was also found to have hemoglobin of 6.4 and was given 2 units of packed red blood cells. 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 Hemoglobin stabilized and oncology consulted you thought he may have hypoproliferative problems and recommended outpatient follow-up. Patient improved, additionally had ADORE on admission that improved with supportive care. Of note during his hospitalization he had Kitchen placed initially and PSA drawn which was elevated however may have been secondary to Kitchen so it was advised that this be repeated on an outpatient basis. On day of discharge patient had no symptoms and was feeling much better, discussed DC instructions with patient and his and he verbalized understanding. Discharge instructions as followed: -You will no longer take flecainide or diltiazem -Would recommend outpatient sleep study/evaluation for possible sleep apnea -Would recommend lab work (CBC and PSA) to check your hemoglobin and prostate function in 1 to 2 weeks through your primary care physician's office. Please call their office upon discharge to obtain order for lab work. -You will need to follow-up with Dr. Monte with GI in his office upon discharge. Please call his office to schedule your hospital follow-up appointment (ph. [phone]) -Please follow-up with hematology upon discharge. Please call their office to schedule hospital follow-up appointment upon discharge. -Please follow-up with your cardiology office upon discharge. You indicated you will be following with them this coming Friday, will be important to keep this appointment -If your repeat prostate function test remains elevated he may need to be referred to urology on an outpatient basis -Please call your primary care provider's office upon discharge to schedule a hospital follow up within 1 week. -For any concerning signs or symptoms please call 911 or proceed to the nearest emergency department Physical Exam Narrative General: Alert, oriented, no apparent distress HEENT: Atraumatic, normocephalic Eyes: Anicteric, normal conjunctiva, extraocular movements grossly intact Neck: Supple Respiratory: Clear to auscultation bilaterally, normal respiratory effort Cardiovascular: Heart rate 40s-50's but regular GI: Soft, nontender, nondistended Extremities: No edema Musculoskeletal: Moving all extremities Neuro: No overt focal neurological deficits Skin: No rashes appreciated Psych: Cooperative Weight / BMI Weight Weight: 109.2 kg Body Mass Index (BMI) 34.5 ABG / Lab / Microbiology Data 04/08/23 06:08 04/08/23 06:08 Laboratory: Laboratory Results - last 24 hr 04/05/23 19:03: Diff Path Review Reviewed 04/06/23 09:30: Haptoglobin 123 04/08/23 06:08: WBC 5.6, RBC 2.24 L, Hgb 8.1 L, Hct 25.8 L, MCV 115.2 H, MCH 36.2 H, MCHC 31.4 L, RDW Std Deviation 86.0 H, RDW Coeff of Dilan 20.0 H, Plt Count 135 L, MPV 11.7, Immature Gran % (Auto) 3.000 H, Neut % (Auto) 65.4, Lymph % (Auto) 21.8, Towns % (Auto) 2.8, Eos % (Auto) 6.6 H, Baso % (Auto) 0.4, Absolute Neuts (auto) 3.7, Absolute Lymphs (auto) 1.23, Nucleated RBC % 0, Differential Comment SCANNED, Reactive Lymphocytes 2+, Anisocytosis 2+, Macrocytosis 2+, Sodium 139, Potassium 4.8, Chloride 109 H, Carbon Dioxide 28.0, Anion Gap 2 L, BUN 21 H, Creatinine 0.99, Estim Creat Clear Calc 70.66, Est GFR (MDRD) Af Amer 96, Est GFR (MDRD) Non-Af 79, BUN/Creatinine Ratio 21.2 H, Glucose 98, Calcium 8.9 Microbiology: Microbiology 04/05/23 19:30 Stool Stool Occult Blood ([place]) - Final D/C Instructions Discharge Diet: - (DASH diet) Meaningful Use Info Meaningful Use Diagnoses (Choose all that apply): None applicable Discharge Plan Admission Admit Date/Time: 04/05/23 20:21 Primary Reason for Your Visit: Lightheaded and shortness of breath Attending Provider: Julissa Sage Primary Care Provider: Nisha Carreno Consulting Providers: Cesar Rowan; Gordo Allen; Rekha Sena; Rosalie Blackwell Instructions Patient Instructions: AFib Dc, AFib Additional Instructions / Restrictions: DISCHARGE INSTRUCTIONS PLEASE READ *Please take this with you to your next doctors appointment* -You will no longer take flecainide or diltiazem -Would recommend outpatient sleep study/evaluation for possible sleep apnea -Would recommend lab work (CBC and PSA) to check your hemoglobin and prostate fu nction in 1 to 2 weeks through your primary care physician's office. Please call their office upon discharge to obtain order for lab work. -You will need to follow-up with Dr. Monte with GI in his office upon discharge. Please call his office to schedule your hospital follow-up appointment (ph. [phone]) -Please follow-up with hematology upon discharge. Please call their office to schedule hospital follow-up appointment upon discharge. -Please follow-up with your cardiology office upon discharge. You indicated you will be following with them this coming Friday, will be important to keep this appointment -If your repeat prostate function test remains elevated he may need to be re ferred to urology on an outpatient basis -Please call your primary care provider's office upon discharge to schedule a hospital follow up within 1 week. -For any concerning signs or symptoms please call 911 or proceed to the nearest emergency department Discharge Orders/Prescriptions Prescriptions: Continued aspirin [Adult Low Dose Aspirin] 81 mg tablet,delayed release (DR/EC) 81 mg PO DAILY multivitamin tablet 1 tab PO DAILY vitamin B complex [B Complex-Vitamin B12] Tablet 1 tab PO DAILY valsartan [Diovan] 320 mg tablet 320 mg PO DAILY Qty: 90 4RF Eliquis 5 mg tablet 5 mg PO BID Qty: 60 11RF pravastatin 40 mg tablet 40 mg PO DAILY Qty: 90 4RF Discontinued diltiazem HCl [Cardizem CD] 180 mg capsule,extended release 24hr 180 mg PO BID Qty: 180 4RF flecainide 150 mg tablet 150 mg PO BID Qty: 180 4RF Referrals / Follow Up: Gordo Allen MD [Med Staff - Active Staff] - Within 1 Week (Follow with Ludivina as scheduled this coming Friday) Nisha Carreno DO [Primary Care Provider] - Within 1 Week Rekha Sena MD [Med Staff - Active Staff] - Within 1 Month Jose Monte DO [Med Staff - Active Staff] - ( -You will need to follow-up with Dr. Monte with GI in his office upon discharge. Please call his office to schedule your hospital follow-up appointment (ph. [phone])) Disposition Disposition (needs filled in before D/C Order can be placed): Home, Self Care Charges/Coding Visit Charges Inpatient E&M: 80627 Disch Hosp >30min
--- NOTE | 2023-04-08 13:08 | PHA.DC.MC.R ---
Pharmacy [facility] has performed discharge medication reconciliation and counseling for this patient. The patient's discharge medication list was reviewed for discrepancies and discrepancies were resolved. The patient was counseled on the following discharge medications and changes in medications for homegoing were reviewed. The Reason for Use, instructions for use, and potential side effects were reviewed for all new medications. The patient's questions regarding all of their medications were answered. The patient was counselled on stopping their diltiazem and flecainide upon discharge. The patient was able to verbally demonstrate an understanding of their discharge medications. Medications at Discharge Home Medications aspirin 81 mg tablet,delayed release (Adult Low Dose Aspirin) 81 mg PO DAILY 02/11/18 multivitamin 1 tab PO DAILY 02/11/18 valsartan 320 mg tablet (Diovan) 320 mg PO DAILY #90 tabs 10/08/22 apixaban 5 mg tablet (Eliquis) 5 mg PO BID #60 tabs 11/20/22 pravastatin 40 mg tablet 40 mg PO DAILY #90 tabs 03/17/23 vitamin B complex (B Complex-Vitamin B12 tablet) 1 tab PO DAILY 04/05/23
--- NOTE | 2023-04-08 13:11 | CASEMGMT ---
Patient has order for discharge. RN CM in to discuss needs at discharge. Patient and deny needs at discharge. Patient and had no further questions or concerns at this time.
== END 2023-04-08 13:36 | disposition home or self-care (01) | DRG 308 ==
LOC: ED 19:58 → ICU 20:50 → PCU 04-06 17:01
PROVIDERS: Internal Medicine; Internal Medicine Gastroenterology; Internal Medicine Hematology & Oncology; Physician Assistant; Admitting Provider Internal Medicine; Emergency Provider Emergency Medicine; PCP Internal Medicine; Visit Provider Internal Medicine
PROC: 0DJ08ZZ Inspection of Upper Intestinal Tract, Via Natural or Artificial Opening Endoscopic (ICD-10-PCS; CPT 43235; principal; 2023-04-07 13:10)
DX: I48.0 Paroxysmal atrial fibrillation (principal); K31.811 Angiodysplasia of stomach and duodenum with bleeding; N17.9 Acute kidney failure, unspecified; K70.9 Alcoholic liver disease, unspecified; D53.9 Nutritional anemia, unspecified; I10 Essential (primary) hypertension; K76.0 Fatty (change of) liver, not elsewhere classified; E78.5 Hyperlipidemia, unspecified; G47.33 Obstructive sleep apnea (adult) (pediatric); D50.9 Iron deficiency anemia, unspecified; K44.9 Diaphragmatic hernia without obstruction or gangrene; Z79.82 Long term (current) use of aspirin; Z79.01 Long term (current) use of anticoagulants
CPT/HCPCS: 36415; 71045; 80048; 80053; 80061; 81001; 82077; 82274; 82607; 82728; 82746; 83010; 83540; 83550; 83615; 83735; 84100; 84153; 84443; 84484; 85018; 85025; 85045; 85610; 86850; 86880; 86900; 86901; 86920; 86922; 88305; 93005; 94660; 94668; 99252; 99285; J7030; J7120; P9016; 90662; A4216; G0103; G0463; J0612; J1940; J2405

== ENCOUNTER → 2023-04-15 | Outpatient (CLI) | payer MEDICARE, BC, SELFPAY ==
[2023-04-15 12:20] LABS: Absolute Lymphocyte Count 1.77 X10^3/uL (0.83-4.51); Absolute Neutrophil Count 2.4 X10^3/uL (2.0-7.7); Basophil# 0.01 X10^3/uL; Basophil% 0.2 % (0-1); Eosinophil# 0.36 X10^3/uL; Eosinophils% 7.6 % (0-5); Hematocrit 31.7 % (40-54); Hemoglobin 10.4 g/dL (13.0-16.5); Lymphocyte # 1.77 X10^3/ul (0.83-4.51); Lymphocyte % 37.5 % (19-41); Mean Corp Hgb Conc 32.8 g/dL (32-36); Mean Corpuscular Hgb 37.1 pg (27.0-32.0); Mean Corpuscular Volume 113.2 fL (80-94); Mean Platelet Vol. 11.9 fl (6.2-12.0); Monocyte# 0.11 X10^3/uL; Monocyte% 2.3 % (0-10); NRBC Flagged by Analyzer 0 % (0-5); Neutrophil # 2.38 X10^3/uL (2.7-7.7); Neutrophil % 50.5 % (47-70); POSITIVE MORPHOLOGY YES; Platelet Count 228 K/mm3 (150-450); RBC Distribution Width CV 19.4 % (11.6-14.6); RBC Distribution Width SD 80.7 fl (35.1-43.9); White Blood Count 4.7 K/mm3 (4.4-11.0)
[2023-04-15 12:27] LABS: Differential Indicated SCAN CRITERIA MET
[2023-04-15 13:08] LABS: Anisocytosis 2+; Atypical Lymphocyte 1+ %; Differential Comment SCANNED
== END | disposition home or self-care (01) ==
LOC: BFHLAB 09:47
PROVIDERS: PCP Nurse Practitioner Family; Visit Provider Nurse Practitioner Family
DX: K92.2 Gastrointestinal hemorrhage, unspecified (principal)
CPT/HCPCS: 36415; 85025

== ENCOUNTER → 2023-04-22 | Outpatient (CLI) | payer MEDICARE, BC, SELFPAY | END | disposition home or self-care (01) | LOC: SL 20:04 | PROVIDERS: PCP Internal Medicine; Referring Provider Physician Assistant Medical; Visit Provider Physician Assistant Medical | DX: G47.33 Obstructive sleep apnea (adult) (pediatric) (principal) | CPT/HCPCS: 95810 ==

== ENCOUNTER → 2023-05-20 | Outpatient (CLI) | payer MEDICARE, BC, SELFPAY ==
[2023-05-20 15:07] LABS: Absolute Lymphocyte Count 1.55 X10^3/uL (0.83-4.51); Absolute Neutrophil Count 2.8 X10^3/uL (2.0-7.7); Basophil# 0.01 X10^3/uL; Basophil% 0.2 % (0-1); Differential Indicated SCAN CRITERIA MET; Eosinophil# 0.32 X10^3/uL; Eosinophils% 6.6 % (0-5); Hematocrit 23.3 % (40-54); Hemoglobin 7.6 g/dL (13.0-16.5); Lymphocyte # 1.55 X10^3/ul (0.83-4.51); Lymphocyte % 31.8 % (19-41); Mean Corp Hgb Conc 32.6 g/dL (32-36); Mean Corpuscular Hgb 37.6 pg (27.0-32.0); Mean Corpuscular Volume 115.3 fL (80-94); Mean Platelet Vol. 12.2 fl (6.2-12.0); Monocyte# 0.14 X10^3/uL; Monocyte% 2.9 % (0-10); NRBC Flagged by Analyzer 0 % (0-5); Neutrophil # 2.75 X10^3/uL (2.7-7.7); Neutrophil % 56.2 % (47-70); POSITIVE MORPHOLOGY YES; Platelet Count 170 K/mm3 (150-450); RBC Distribution Width CV 20.1 % (11.6-14.6); RBC Distribution Width SD 83.2 fl (35.1-43.9); Red Blood Count 2.02 M/mm3 (4.6-6.2); White Blood Count 4.9 K/mm3 (4.4-11.0)
== END | disposition home or self-care (01) ==
LOC: BFHLAB 13:21
PROVIDERS: PCP Nurse Practitioner Family; Visit Provider Nurse Practitioner Family
DX: D64.9 Anemia, unspecified (principal)
CPT/HCPCS: 36415; 85025

== ENCOUNTER 2023-05-23 05:22 | Day surgery (SDC) | payer MEDICARE, BC, SELFPAY ==
--- NOTE | 2023-05-23 | GASB_PTH ---
PATHOLOGY RESULTS PATIENT: DELICIA SHEA LOC: EN U#:[id number] AGE/SX: 72/M ROOM: RE05/23/[address]: Dr. Jose Monte DO : 1950 BED: DIS: 05/23/2023 SPEC #: [id number] RECD: 05/23/23 08:49 STATUS: RAHAT MUNDO #: [id number] SETH: 05/23/23 00:[address]: Jose Monte DEPT: SURGICAL PATHOLOGY RECD BY: Zachery Parrish ENTERED: 05/23/23 09:31 SP TYPE: Gastric Bx Tissues: Duodenum, NOS Gastric mucous membrane Procedures: Surgery Specimen Level IV HEADER OPERATION: Colonoscopy, EGD with biopsy PRE-OP DIAGNOSIS: Anemia TISSUE SUBMITTED: A - Duodenum biopsy, B - Gastric antrum biopsy for H. pylori and histology MICROSCOPIC DIAGNOSIS A. Duodenum, biopsy: Fragments of duodenal mucosa with mild nonspecific chronic inflammation and gastric metaplasia. B. Gastric antrum, biopsy: Mild gastritis. See microscopic description and comment. REGINA:gurjit 05/26/23 COMMENT B. The results of immunohistochemistry for Helicobacter pylori will be reported separately ([id number]). MICROSCOPIC DESCRIPTION Slides are reviewed. B. The specimen shows fragments of gastric mucosa with chronic inflammatory cell infiltrates in the lamina propria consisting of lymphocytes and plasma cells, consistent with mild chronic gastritis. GROSS DESCRIPTION A - Received in fixative is one container labeled with the patient's name and designated duodenum biopsy. The specimen consists of multiple irregular fragments of light holguin soft tissue that in aggregate measure 1.5 x 0.5 x 0.1 cm. The specimen is totally submitted in one cassette. B - Received in fixative is one container labeled with the patient's name and designated gastric antrum. The specimen consists of multiple irregular fragments of light holguin soft tissue that in aggregate measure 1.0 x 0.3 x 0.1 cm. The specimen is totally submitted in one cassette. / REGINA:gurjit 05/23/2023 TC:3 [facility]: [id number] x2
[2023-05-23 05:57] VITALS: BP 126/68; PULSE 76; RESP 16; TEMP 36.6; O2SAT 96; BMI 32.2
[2023-05-23] MEDS: Lactated Ringers 1,000 ML 15 ML IV (06:03)
--- NOTE | 2023-05-23 06:30 | IMM_PTH ---
PATHOLOGY RESULTS PATIENT: DELICIA SHEA LOC: EN U#:[id number] AGE/SX: 72/M ROOM: RE05/23/[address]: Dr. Jose Monte DO : 1950 BED: DIS: 05/23/2023 SPEC #: [id number] RECD: 05/23/23 11:58 STATUS: RAHAT REImelda #: [id number] SETH: 05/23/23 06:[address]: Jose Monte DEPT: IMMUNOHISTOCHEMISTRY RECD BY: Tereza Owens ENTERED: 05/23/23 11:58 SP TYPE: IMMUNO Tissues: Stomach, NOS Procedures: H Pylori (initial) PHYSICIAN & INSTITUTION [place] [id number] SPECIMEN INFORMATION: Tissue Source: B - Gastric antrum Clinical Info: Anemia Specimen Number: [id number] CPT code: 01333 METHODOLOGY: Deparaffinized sections of prefer/formalin-fixed tissue or PAP/DQ stained slides are incubated with monoclonal/polyclonal antibodies/oligonucleotide probes. Localization is made via biotin free immunoperoxidase method. Appropriate controls are performed and reacted as expected. Results on target cell population are indicated in the following table: RESULTS: ANTIBODY / CLONE RESULT Block B H Pylori (polyclonal) negative These tests were developed and their performance characteristics determined by [facility]. They may not have been cleared or approved by the U.S. Food and Drug Administration. The FDA has determined that such clearance or approval is not necessary. The above immunohistochemical/dualISH markers are ordered and reviewed by the Pathologist. INTERPRETATION: B. Gastric antrum, biopsy: Negative for Helicobacter pylori organisms. SJ:gurjit 05/26/2023
--- NOTE | 2023-05-23 06:36 | PCM.HP.BLA ---
History and Physical Date of Admission: 05/23/23 72 M who presents to the office today for follow up. WHG OV noting SOB; cardiology etiology r/o but hepatic cysts noted and referred to GI. US 05.16.22 14.6cm with hepatic cysts up to 1.8cm. *BGI established 08.22.22 with history as above. US RUQ and elastography 09.03.22 hepatic measurement 18.7cm with fatty infiltration stiffness 13.3 kPa; two hepatic cysts largest 2.1x2.2x1.9cm; slightly thickened gallbladder wall 3.8mm Biochemical CBC (hgb trending downward), haptoglobin, coagulation, CMP, LFT, iron, TIBC, iron sat, LDH, ammonia, lipids, ALFRED, TSH, copper, ANCA, BETTY comp, AMA, ASM without pertinent abnormality ESR H30, ferritin H930 Contact 11.01.22 he is continuing to take blood thinner as prescribed by [facility]. Continues with iron supplement; educated to take with Vit C or OJ OV 11.20.22 Patient has no concerns regarding liver. still taking iron supplement. currently in a-fib and seeing cardiology. had a fecal occult that was on 11/09 and was normal, denies issues with bowels including diarrhea, constipation and bloody stools. [facility] 04/05/23-04/08/23- Macrocytic anemia, EGD- single bleeding angiodysplastic lesion in stomach [facility] 04.14.23- Focal areas of erythema without bleeding, ulceration seen in stomach OV 04.25.23- PT doing very well since hosp. visit. Denies any abdominal pain, dizziness or SOB. BM have been good. No diarrhea, constipation, or dark stools. No longer taking iron supplement. Continues Eliquis. Follow-up after hospital admission for anemia. Patient had capsule endoscopy done. Discuss the results of the MRI blood test and capsule endoscopy. ROS Const Constitutional: No fatigue ENT ENT: No difficulty swallowing Gastro GI: No abdominal pain, belching, bloating, change in bowel habits, change in stool character, coffee ground emesis, constipation, cramping, diarrhea, heartburn, difficulty swallowing, feeling full early, excessive flatus, incontinent of stools, Vomiting blood/hematemesis, Blood in stool, loose stools, Black,tarry stools, nausea/dyspepsia, pain with swallowing, vomiting or other Musc Musculoskeletal: Positive for Arthritis; No joint pain Skin Skin: No yellowing of the eye or itchy eyes Psych Psychiatric: No anxiety and No depression Endo Endocrine: No fatigue Aller/Imm Allergy/Immunologic: No itchy eyes Francisco/Lymp Hematologic/Lymphatic: No easy bleeding or easy bruising Exam Const General: cooperative, no acute distress and well developed Nutritional Appearance: obese Orientation: alert, awake and oriented x3 Other: BMI 33.0 kg/m? HENMT Head: normocephalic and atraumatic Nose: external nose normal Face and sinus: normal facial exam Mouth: moist mucous membranes Eyes Pupils: PERRL EOM: EOM intact bilaterally Neck Neck: normal visual inspection, no meningeal signs and trachea midline Carotids: no bruits Chest Chest palpation & inspection: normal inspection of the chest Resp Effort & Inspection: normal respiratory effort and symmetric chest movement Auscultation: Bilateral: Clear to Auscultation Cardio Palpation: normal PMI Rate: regular rate Rhythm: regular rhythm Heart Sounds: S1 normal and S2 normal GI Auscultation: normal bowel sounds Percussion: normal to percussion Palpation: soft, no hepatosplenomegaly and no guarding Other: No palpable ascites. No tenderness guarding/rigidity General: bimanual renal exam normal bilaterally, bladder normal to inspection and bladder normal to palpation Musc Musculoskeletal: No joint tenderness, joint redness, joint warmth or decreased range of motion Thoracic/Lumbar Spine: thor and lumb spine abnorm to inspection Skin General: rashes and/or lesions noted, turgor normal and no erythema Wounds: wound noted Neuro General: patient alert, patient awake, patient oriented x3 and no focal motor deficits Speech: speech normal Motor: muscle tone normal throughout Extrem General: normal exam except as noted Other: No pedal edema. Psych Appearance: grossly normal Mood: congruent mood Affect: normal affect Attitude: cooperative Quality Reporting Tobacco Screening ([facility] [address] [address]) Smoking Status: Never smoker Assessment and Plan Assessment and Plan (1) Macrocytic anemia: Status: Chronic Plan: Macrocytic anemia. The exact etiology unclear. Hemoglobin gradually going up to 10.4/31.7%. B12 640. Folate normal. TSH normal. Patient has appointment with Dr. Sena on June 05, 2022. (2) NAFLD (nonalcoholic fatty liver disease): Status: Acute Plan: Nonalcoholic fatty liver disease with Vergara. His fibrosis score was 13.3. He also has hepatomegaly. Because he is on flecainide and is showing significant liver disease we will get liver biopsy. I think his hyper ferritin anemia is secondary to his fatty liver disease. However we will get iron, transferrin labs for hereditary hemochromatosis along with labs for alpha 1 antitrypsin disease phenotype. He does not want to go on ursodiol or vitamin E at this time. (3) Hepatic cyst: Status: Chronic Plan: On MRI reported simple cyst. (4) Secondary hemochromatosis: Status: Chronic Plan: Overall, genes for C282, His63 and Ser65 are negative. Transferrin saturation is 49. Ferritin elevated, 1340. Transferrin normal. Iron normal, He needs workup for causes of secondary hemochromatosis which might be porphyria, other overlapping liver diseases like viral disease, and autoimmune disease. Patient autoimmune workup was positive for BETTY 1 is to 160, speckled pattern. Repeat lab ordered. Diagnosis is unclear. This was discussed with the patient and near the bedside. MRI of liver also reviewed with the patient. It shows increased intensity of T1 and liver which may be seen in infiltrative disease. Benign simple cyst in the left hepatic lobe. Spleen shows moderate diffuse decreased single T2-weighted images. MRI raised suspicion of secondary hematochromatosis. Rest patient has appointment with the minister of religion admission above Lab reviewed. Follow-up in 3 months. Orders: Orders BETTY w/ Reflex Mult Confirm 3 Weeks D53.9 - Nutritional anemia, unspecified, E83.118 - Other hemochromatosis, K76.0 - Fatty (change of) liver, not elsewhere classified ANTINUCLEAR ANTIBODIES DIRECT 3 Weeks D53.9 - Nutritional anemia, unspecified, E83.118 - Other hemochromatosis, K76.0 - Fatty (change of) liver, not elsewhere classified Miscellaneous Lab Procedure 3 Weeks D53.9 - Nutritional anemia, unspecified, E83.118 - Other hemochromatosis, K76.0 - Fatty (change of) liver, not elsewhere classified Hemoglobin A1c 3 Months D53.9 - Nutritional anemia, unspecified, E83.118 - Other hemochromatosis, K76.0 - Fatty (change of) liver, not elsewhere classified, R79.89 - Other specified abnormal findings of blood chemistry Lipid Profile 3 Months D53.9 - Nutritional anemia, unspecified, E83.118 - Other hemochromatosis, K76.0 - Fatty (change of) liver, not elsewhere classified, R79.89 - Other specified abnormal findings of blood chemistry Prothrombin Time w/INR 3 Months D53.9 - Nutritional anemia, unspecified, E83.118 - Other hemochromatosis, K76.0 - Fatty (change of) liver, not elsewhere classified, Z98.890 - Other specified postprocedural states LDH 3 Months D53.9 - Nutritional anemia, unspecified, E83.118 - Other hemochromatosis, K76.0 - Fatty (change of) liver, not elsewhere classified Hepatitis Panel Acute 3 Months D53.9 - Nutritional anemia, unspecified, E83.118 - Other hemochromatosis, K76.0 - Fatty (change of) liver, not elsewhere classified, R79.89 - Other specified abnormal findings of blood chemistry Comprehensive Metabolic Profil 3 Months D53.9 - Nutritional anemia, unspecified, E83.118 - Other hemochromatosis, K76.0 - Fatty (change of) liver, not elsewhere classified AFP, Tumor Marker 3 Months D53.9 - Nutritional anemia, unspecified, E83.118 - Other hemochromatosis, K76.0 - Fatty (change of) liver, not elsewhere classified Anti-Smooth Muscle ABS 3 Months D53.9 - Nutritional anemia, unspecified, E83.118 - Other hemochromatosis, K76.0 - Fatty (change of) liver, not elsewhere classified Anti-Mitochondrial AB 3 Months D53.9 - Nutritional anemia, unspecified, E83.118 - Other hemochromatosis, K76.0 - Fatty (change of) liver, not elsewhere classified CBC W/Diff, Automated 3 Months D53.9 - Nutritional anemia, unspecified, E83.118 - Other hemochromatosis, K76.0 - Fatty (change of) liver, not elsewhere classified, R79.89 - Other specified abnormal findings of blood chemistry Erythrocyte Sed Rate 3 Months D53.9 - Nutritional anemia, unspecified, E83.118 - Other hemochromatosis, K76.0 - Fatty (change of) liver, not elsewhere classified CRP 3 Months D53.9 - Nutritional anemia, unspecified, E83.118 - Other hemochromatosis, K76.0 - Fatty (change of) liver, not elsewhere classified Vitamin D,25 Hydroxy 3 Months D53.9 - Nutritional anemia, unspecified, E83.118 - Other hemochromatosis, K76.0 - Fatty (change of) liver, not elsewhere classified, R79.89 - Other specified abnormal findings of blood chemistry I have examined the patient and the H&P has been reviewed. There are no clinical changes since date of exam.
[2023-05-23 07:08] VITALS: BP 112/64; BP 126/68; PULSE 56; RESP 18; TEMP 36.6; O2SAT 97
[2023-05-23 07:10] VITALS: BP 103/62; BP 126/68; PULSE 60; RESP 12; O2SAT 97
[2023-05-23 07:14] VITALS: BP 126/68; BP 93/57; PULSE 75; RESP 20; O2SAT 98
--- NOTE | 2023-05-23 07:17 | OP.EGD_ITS ---
Patient Name: Wm Santacruz Procedure Date: 05/23/2023 6:12 AM Date of : 1950 Age: 72 Procedure: Upper GI endoscopy Indications: Iron deficiency anemia Providers: Jose Monte DO Referring MD: Jose Monte DO Medicines: Monitored Anesthesia Care Patient Profile: This is a 72 year old male. Refer to note in patient chart for documentation of history and physical. Patient has symptoms of chronic dyspepsia and chronic nausea. Complications: No immediate complications. Procedure: Pre-Anesthesia Assessment: - Prior to the procedure, a History and Physical was performed, and patient medications and allergies were reviewed. The patient is competent. The risks and benefits of the procedure and the sedation options and risks were discussed with the patient. All questions were answered and informed consent was obtained. Patient identification and proposed procedure were verified by the physician in the pre-procedure area. Mental Status Examination: alert and oriented. Airway Examination: normal oropharyngeal airway and neck mobility. Respiratory Examination: clear to auscultation. CV Examination: normal. Prophylactic Antibiotics: The patient does not require prophylactic antibiotics. Prior Anticoagulants: The patient has taken no anticoagulant or antiplatelet agents. ASA Grade Assessment: II - A patient with mild systemic disease. After reviewing the risks and benefits, the patient was deemed in satisfactory condition to undergo the procedure. The anesthesia plan was to use monitored anesthesia care (MAC). Immediately prior to administration of medications, the patient was re-assessed for adequacy to receive sedatives. The heart rate, respiratory rate, oxygen saturations, blood pressure, adequacy of pulmonary ventilation, and response to care were monitored throughout the procedure. The physical status of the patient was re-assessed after the procedure. After obtaining informed consent, the endoscope was passed under direct vision. Throughout the procedure, the patient's blood pressure, pulse, and oxygen saturations were monitored continuously. The Colonoscope was introduced through the mouth, and advanced to the second part of duodenum. The upper GI endoscopy was accomplished without difficulty. The patient tolerated the procedure well. Scope In: 6:43:26 AM Scope Out: 6:48:38 AM Total Procedure Duration Time 0 hours 5 minutes 12 seconds Findings: The examined esophagus was normal. Patchy mildly erythematous mucosa without bleeding was found in the gastric antrum. Biopsies were taken with a cold forceps for histology. Verification of patient identification for the specimen was done. Estimated blood loss was minimal. Biopsies were taken with a cold forceps for Helicobacter pylori testing. Verification of patient identification for the specimen was done. Estimated blood loss was minimal. A few localized erosions without bleeding were found in the duodenal bulb. Biopsies were taken with a cold forceps for histology. Verification of patient identification for the specimen was done. Estimated blood loss was minimal. Impression: - Normal esophagus. - Erythematous mucosa in the antrum. Biopsied. - Duodenal erosions without bleeding. Biopsied. Recommendation: - Discharge patient to home. - Resume previous diet. - Continue present medications. - Await pathology results. Procedure Code(s): --- Professional --- 07804, Esophagogastroduodenoscopy, flexible, transoral; with biopsy, single or multiple CPT copyright 2021 [employer]. All rights reserved. The codes documented in this report are preliminary and upon electronic news gathering camera person review may be revised to meet current compliance requirements. Jose Monte DO 05/23/2023 7:16:22 AM This report has been signed electronically. Number of Addenda: 0 Note Initiated On: 05/23/2023 6:12 AM
--- NOTE | 2023-05-23 07:17 | OP.CCLET_ITS ---
05/23/2023 Oumou Huynh Re : Upper GI endoscopy procedure for Wm Santacruz Dear Iglesia This procedure was performed on Tuesday, May 23, 2023. My impressions and recommendations are as follows: Impressions : - Normal esophagus. - Erythematous mucosa in the antrum. Biopsied. - Duodenal erosions without bleeding. Biopsied. Recommendations : - Discharge patient to home. - Resume previous diet. - Continue present medications. - Await pathology results. My findings are described in the full procedure note, which is enclosed. If I can be of further assistance, please feel free to contact me at . Sincerely, Jose Monte, 05/23/2023 7:16:22 AM This report has been signed electronically.
[2023-05-23 07:19] VITALS: BP 103/59; BP 126/68; PULSE 63; RESP 20; TEMP 37; O2SAT 97
--- NOTE | 2023-05-23 07:19 | OP.CCLET_ITS ---
05/23/2023 Oumou Huynh Re : Colonoscopy procedure for Wm Santacruz Dear Iglesia This procedure was performed on Tuesday, May 23, 2023. My impressions and recommendations are as follows: Impressions : - Diverticulosis in the recto-sigmoid colon, in the sigmoid colon and in the descending colon. - The examination was otherwise normal on direct and retroflexion views. - No specimens collected. Recommendations : - Discharge patient to home. - Resume previous diet. - Continue present medications. - Repeat colonoscopy in 10 years for screening purposes. My findings are described in the full procedure note, which is enclosed. If I can be of further assistance, please feel free to contact me at . Sincerely, Jose Monte, 05/23/2023 7:18:49 AM This report has been signed electronically.
--- NOTE | 2023-05-23 07:19 | OP.COLON_ITS ---
Patient Name: Wm Santacruz Procedure Date: 05/23/2023 6:48 AM Date of : 1950 Age: 72 Procedure: Colonoscopy Indications: Unexplained iron deficiency anemia Providers: Jose Monte DO Referring MD: Jose Monte DO Medicines: Monitored Anesthesia Care Patient Profile: This is a 72 year old male. Refer to note in patient chart for documentation of history and physical. Patient has symptoms of chronic dyspepsia and chronic nausea. Last Colonoscopy: date unknown. Unable to locate last colonoscopy report. Complications: No immediate complications. Procedure: Pre-Anesthesia Assessment: - Prior to the procedure, a History and Physical was performed, and patient medications and allergies were reviewed. The patient is competent. The risks and benefits of the procedure and the sedation options and risks were discussed with the patient. All questions were answered and informed consent was obtained. Patient identification and proposed procedure were verified by the physician in the pre-procedure area. Mental Status Examination: alert and oriented. Airway Examination: normal oropharyngeal airway and neck mobility. Respiratory Examination: clear to auscultation. CV Examination: normal. Prophylactic Antibiotics: The patient does not require prophylactic antibiotics. Prior Anticoagulants: The patient has taken no anticoagulant or antiplatelet agents. ASA Grade Assessment: II - A patient with mild systemic disease. After reviewing the risks and benefits, the patient was deemed in satisfactory condition to undergo the procedure. The anesthesia plan was to use monitored anesthesia care (MAC). Immediately prior to administration of medications, the patient was re-assessed for adequacy to receive sedatives. The heart rate, respiratory rate, oxygen saturations, blood pressure, adequacy of pulmonary ventilation, and response to care were monitored throughout the procedure. The physical status of the patient was re-assessed after the procedure. After I obtained informed consent, the scope was passed under direct vision. Throughout the procedure, the patient's blood pressure, pulse, and oxygen saturations were monitored continuously. The Colonoscope was introduced through the anus and advanced to the cecum, identified by appendiceal orifice and ileocecal valve. The colonoscopy was performed without difficulty. The patient tolerated the procedure well. The quality of the bowel preparation was adequate. The ileocecal valve, appendiceal orifice, and rectum were photographed. Scope In: 6:50:12 AM Scope Withdrawal Time 0 hours 9 minutes 31 seconds Scope Out: 7:02:23 AM Total Procedure Duration Time 0 hours 12 minutes 11 seconds Findings: The perianal and digital rectal examinations were normal. Multiple small and large-mouthed diverticula were found in the recto-sigmoid colon, sigmoid colon and descending colon. The exam was otherwise without abnormality on direct and retroflexion views. Impression: - Diverticulosis in the recto-sigmoid colon, in the sigmoid colon and in the descending colon. - The examination was otherwise normal on direct and retroflexion views. - No specimens collected. Recommendation: - Discharge patient to home. - Resume previous diet. - Continue present medications. - Repeat colonoscopy in 10 years for screening purposes. Procedure Code(s): --- Professional --- 85897, Colonoscopy, flexible; diagnostic, including collection of specimen(s) by brushing or washing, when performed (separate procedure) CPT copyright 2021 [employer]. All rights reserved. The codes documented in this report are preliminary and upon physician coder review may be revised to meet current compliance requirements. Jose Monte DO 05/23/2023 7:18:49 AM This report has been signed electronically. Number of Addenda: 0 Note Initiated On: 05/23/2023 6:48 AM
[2023-05-23 07:39] VITALS: BP 126/68
== END 2023-05-23 07:58 | disposition home or self-care (01) ==
LOC: EN 05:23 → AC 05:24
PROVIDERS: PCP Nurse Practitioner Family; Referring Provider Nurse Practitioner Family; Visit Provider Internal Medicine Gastroenterology
PROC: 0DJD8ZZ Inspection of Lower Intestinal Tract, Via Natural or Artificial Opening Endoscopic (ICD-10-PCS; CPT 45378; principal; 2023-05-23 06:25)
DX: K29.70 Gastritis, unspecified, without bleeding (principal); D50.9 Iron deficiency anemia, unspecified; D53.9 Nutritional anemia, unspecified; K57.30 Diverticulosis of large intestine without perforation or abscess without bleeding; K76.0 Fatty (change of) liver, not elsewhere classified; R79.89 Other specified abnormal findings of blood chemistry
CPT/HCPCS: 45378; 43239; 88305; 88342; J7120; J2405

== ENCOUNTER 2023-06-06 17:58 | Emergency (ER) | payer MEDICARE, BC, SELFPAY ==
[2023-06-06] VITALS (10 sets, daily range): BP systolic 123–145; BP diastolic 63–90; PULSE 60–120; RESP 13–16; TEMP 36.4–37; O2SAT 96–100; BMI 32.0
--- NOTE | 2023-06-06 18:22 | EX.ED.DYSGE1 ---
HPI History of Present Illness Chief Complaint: Abn Labs Informant: patient Narrative Narrative: Patient presents secondary to anemia. He was admitted in March of last year with bradycardia, hypotension, anemia. Patient was found to have an upper GI bleed that was treated. Repeat hemoglobins were normal a month later, but then of slowly been dropping. Patient did have repeat upper and lower endoscopy as well as a camera to evaluate small bowel that revealed no obvious source of bleeding. Patient was seen by hematology yesterday. Hemoglobin was found to be 6.7 but because he was not horribly symptomatic was not transfused at that time. They asked him to stop taking his Xarelto yesterday, but patient is nervous about this and is concerned about having a stroke given his paroxysmal A-fib. Today he is felt weak. His hope is that he can get a couple units of blood and still take his Xarelto. Hematology is planning a bone marrow biopsy per patient report. [facility] Medical History (Updated 06/06/23 @ 22:[address] Rosita Martinez MD) Abnormal stress test Arthritis Cardiology follow-up encounter Chronic GI bleeding Elevated ferritin level Essential hypertension High cholesterol History of atrial fibrillation History of cardioversion History of DVT (deep vein thrombosis) History of echocardiogram History of GI bleed History of left heart catheterization (LHC) (~04/23/19) History of pulmonary embolism History of stress test Hyperlipemia Hypertension Macrocytic anemia Non-smoker FATIMAH (obstructive sleep apnea) Paroxysmal atrial fibrillation Persistent atrial fibrillation Premature ventricular contraction Sleep apnea Wears contact lenses Wears glasses Home Medications multivitamin 1 tab PO DAILY 02/11/18 [History Last Taken 05/22/23] valsartan 320 mg tablet (Diovan) 320 mg PO DAILY #90 tabs 10/08/22 [Rx Last Taken 05/23/23 05:00] pravastatin 40 mg tablet 40 mg PO DAILY #90 tabs 03/17/23 [Rx Last Taken 05/22/23] rivaroxaban 20 mg tablet (Xarelto) 20 mg PO QPM #30 tabs 05/23/23 [Rx Last Taken Unknown] Allergy/AdvReac Type Severity Reaction Status Date / Time No Known Allergies Allergy Verified 06/06/23 17:59 Family History Father Myocardial infarction, Onset Age: 48 Hypertension Sister Atrial fibrillation Surgical History History of cardiac catheterization History of esophagogastroduodenoscopy (EGD) History of left hip replacement History of right hip replacement Social History current occupational status: retired Smoking Status: Never smoker alcohol intake: current details: occasional substance use type: does not use ROS ROS ED Constitutional Constitutional ED: Denies chills or fever(s) Eyes Eyes: Denies discharge from eye(s) ENT ENT ED: Denies discharge from eye(s), rhinorrhea or sore throat Cardiovascular Cardiovascular: Denies chest pain or palpitations Respiratory/Chest Respiratory/Chest: Denies cough or dyspnea Gastrointestinal Gastrointestinal: Denies abdominal pain, nausea or vomiting Genitourinary Genitourinary ED: Denies dysuria Musculoskeletal Musculoskeletal: Denies back pain or extremity pain Integumentary Denies Abrasions or rash Neurologic Neurologic: Denies headache(s) or weakness Allergic/Immunologic Allergic/Immunologic ED: Denies lip swelling or urticaria EXAM Physical Exam Const Vital Signs: 06/06/23 18:00 06/06/23 17:59 06/06/23 19:55 Temperature 98.3 F 98.6 F Temperature Source Temporal Oral Pulse Rate 66 60 Respiratory Rate 14 16 Respiratory Effort Normal Respiratory Pattern Normal Blood Pressure 143/82 H 140/67 H Blood Pressure Mean 102 91 Blood Pressure Source Monitor Blood Pressure Position Semi-Fowlers Blood Pressure Location Right Arm Pulse Ox 100 96 Oxygen Delivery Method Room Air Room Air 06/06/23 20:10 06/06/23 21:00 06/06/23 21:21 Temperature 98.3 F 97.6 F L 98.3 F Temperature Source Oral Temporal Oral Pulse Rate 64 120 H 98 Respiratory Rate 16 16 13 Respiratory Effort Respiratory Pattern Blood Pressure 123/63 H 137/86 H 145/90 H Blood Pressure Mean 83 103 108 Blood Pressure Source Monitor Monitor Blood Pressure Position Semi-Fowlers Semi-Fowlers Blood Pressure Location Right Arm Right Arm Pulse Ox 98 98 98 Oxygen Delivery Method Room Air Room Air Room Air 06/06/23 21:37 06/06/23 21:54 Temperature 98.3 F 98 F Temperature Source Oral Oral Pulse Rate 89 100 Respiratory Rate 13 16 Respiratory Effort Respiratory Pattern Blood Pressure 137/86 H 134/78 H Blood Pressure Mean 103 96 Blood Pressure Source Monitor Monitor Blood Pressure Position Semi-Fowlers Semi-Fowlers Blood Pressure Location Right Arm Right Arm Pulse Ox 98 98 Oxygen Delivery Method Room Air Room Air Positive well nourished and well developed General Appearance ED: well developed HEENT Reports moist mucous membranes Eyes EOMs intact bilaterally Chest Wall inspection of chest normal and palpation of chest normal Resp normal respiratory effort and clear to auscultation bilaterally Cardio regular rate and regular rhythm GI non-tender Palpation: soft Extremity normal to inspection Neuro oriented x3 and no sensory deficits noted Motor Exam: strength 5/5 throughout Psych mental status grossly normal Skin no rashes or lesions noted MDM MDM MDM Narrative Medical decision making narrative: Patient's lab work from yesterday is reviewed. Hemoglobin has been dropping and yesterday was 6.7. IV line will be established and labs will be redrawn today. Stool Hemoccult will be obtained. Patient is typed and crossed for 2 units. EKG obtained to evaluate for cardiac arrhythmia/ischemia. History & Record Review Discussion w/independent historian: Patient and Significant other Additional record(s) reviewed:: Prior inpatient record, Prior ED visit and Prior labs Lab Data Attestation: I reviewed the patient's lab results. Labs: Laboratory Results - last 24 hr 06/06/23 18:30 WBC 4.7 RBC 1.70 L Hgb 6.4 L Hct 19.8 L MCV 116.5 H MCH 37.6 H MCHC 32.3 RDW Std Deviation 83.8 H RDW Coeff of Dilan 19.9 H Plt Count 177 MPV 11.9 Immature Gran % (Auto) 2.300 H Neut % (Auto) 52.6 Lymph % (Auto) 36.2 Clark % (Auto) 3.2 Eos % (Auto) 5.5 H Baso % (Auto) 0.2 Absolute Neuts (auto) 2.5 Absolute Lymphs (auto) 1.70 Nucleated RBC % 0 Differential Comment PT 14.1 INR 1.1 APTT 28.3 Sodium 140 Potassium 4.4 Chloride 111 H Carbon Dioxide 24.0 Anion Gap 5 BUN 26 H Creatinine 1.02 Estim Creat Clear Calc 80.39 Est GFR (MDRD) Af Amer 92 Est GFR (MDRD) Non-Af 76 BUN/Creatinine Ratio 25.5 H Glucose 103 Calcium 9.1 Blood Type A POSITIVE Antibody Screen NEGATIVE Crossmatch See Detail Treatment and Re-Evaluation :: CBC reveals normal white count 4.7 with normal platelet count of 177. Hemoglobin is low at 6.4. This is compared to a hemoglobin of 6.7 yesterday. Chemistry studies are unremarkable. EKG reveals sinus rhythm at 65 with no acute ischemia. With patient having increased symptoms with his anemia, he was given 2 units of packed RBCs in the emergency room. Patient has been in and out of A-fib on the monitor while here. He does raise significant concern about being off of his blood thinners as he has had upper and lower scopes with a camera study and no evidence of GI bleed. He has been closely monitoring his stools with no evidence of blood. His stool guaiac here tonight is negative. 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 Discharge Plan Triage Chief Complaint: Abn Labs ED Provider: Rosita Martinez Dx/Rx/DC Orders Clinical Impression: Anemia Instructions: ED Anemia, Type Not Specified (Adult) Prescriptions: No Action multivitamin tablet 1 tab PO DAILY valsartan [Diovan] 320 mg tablet 320 mg PO DAILY Qty: 90 4RF pravastatin 40 mg tablet 40 mg PO DAILY Qty: 90 4RF Xarelto 20 mg tablet 20 mg PO QPM Qty: 30 11RF Rx Instructions: must administer with evening meal Primary Care Provider: Susan Parekh Referrals: Rekha Sena MD [Med Staff - Active Staff] - Keep Avelina appointment Susan Parekh NP-C [Primary Care Provider] - Disposition Disposition: Home, Self Care
[2023-06-06 18:40] LABS: Absolute Neutrophil Count 2.5 X10^3/uL (2.0-7.7); Basophil# 0.01 X10^3/uL; Basophil% 0.2 % (0-1); Eosinophil# 0.26 X10^3/uL; Eosinophils% 5.5 % (0-5); Hematocrit 19.8 % (40-54); Hemoglobin 6.4 g/dL (13.0-16.5); Lymphocyte % 36.2 % (19-41); Mean Corp Hgb Conc 32.3 g/dL (32-36); Mean Corpuscular Hgb 37.6 pg (27.0-32.0); Mean Corpuscular Volume 116.5 fL (80-94); Mean Platelet Vol. 11.9 fl (6.2-12.0); Monocyte# 0.15 X10^3/uL; Monocyte% 3.2 % (0-10); NRBC Flagged by Analyzer 0 % (0-5); Neutrophil # 2.46 X10^3/uL (2.7-7.7); Neutrophil % 52.6 % (47-70); POSITIVE MORPHOLOGY YES; Platelet Count 177 K/mm3 (150-450); RBC Distribution Width CV 19.9 % (11.6-14.6); RBC Distribution Width SD 83.8 fl (35.1-43.9); White Blood Count 4.7 K/mm3 (4.4-11.0)
--- OUTSIDE RECORDS SUMMARY | 2023-06-06 18:45 | XMS RPT_ITS | CCD ---
Author Name Unknown Address [address] [place] [address] Organization [facility] Care Team Providers Care Racing Secretary And Handicapper Name Role Phone Jimmy Herrera MD Unavailable [phone] HARSH Bianchi, Ludivina Arellano Unavailable Nisha Carreno Unavailable Teerse Warren Unavailable Valeria Bernard Unavailable Unavailable Traci Sheehan Unavailable Unavailable Terese Warren Unavailable Head Of Physics, System Unavailable Unavailable Unavailable Unavailable ARLENE PAGE Attending Unavailable KAYLEEARLENE Primary Care Unavailable KAYLEEARLENE CARRILLO Admitting Unavailable KAYLEEARLENE Attending Unavailable KAYLEEARLENE Primary Care Unavailable KAYLEEARLENE CARRILLO Admitting Unavailable Nisha Carreno DO Unavailable Terese Warren MD Unavailable Valeria Bernard Unavailable Unavailable Traci Sheehan CMA Unavailable Unavailable Terese Warren MD Unavailable Head Of Physics, System Unavailable Unavailable Unavailable Unavailable Nisha Carreno DO Unavailable Terese Warren MD Unavailable Medications Completed/Discontinued Medications Medication Drug Class(es) Dates Sig (Normalized) Sig (Original) acetaminophen 300 mg / codeine phosphate 30 mg oral tablet (4 sources) Opioid Agonist Start: 05-08-2012 End: 02-12-2013 take 1 tablet by mouth every eight hours as needed TYLENOL WITH CODEINE #3, 300-30MG (Oral Tablet) 1 Tablet 1-2 every 8 hours prn for 0 days Quantity: 20 {Tablet} Refills: 0 Ordered: 12-Feb-2013 Start : 08-May-2012 End : 12-Feb-2013 Inactive Comments: twenty Problems Active Problems Problem Classification Problem Date Documented Da te Episodic/Chronic Cardiac dysrhythmias (14 sources) Sick sinus syndrome; Translations: [Ventricular premature beats] Onset: 03-12-2011 03-12-2011 Chronic Past or Other Problems Problem Classification Problem Date Documented Da te Episodic/Chronic Influenza (3 sources) Influenza Malaise and fatigue (2 sources) Fatigue; Translations: [Other fatigue] Onset: 03-12-2011 03-12-2011 Episodic Syncope (2 sources) Syncope and collapse; Translations: [Syncope and collapse] Onset: 03-12-2011 03-12-2011 Episodic Unclassified (8 sources) Family history of ischemic heart disease; Translations: [Edema] Onset: 03-12-2011 03-12-2011 Episodic Unclassified (20 sources) Unclassified (9 sources) Abnormal Lung Sounds/Rales (786.7) Unclassified (1 source) Patient encounter status; Translations: [Encounter for routine history and physical exam for male] 02-14-2015 Results Test Name Value Interpretation Reference Range Facil ity Vital Signs Date Time Vital Sign Value Performing Clinician Facility 04-09-2017 08:19-0500 BMI (Body Mass Index) 30.82 kg/m2 [facility] Work Phone: 04-09-2017 08:19-0500 BP Diastolic 64 mm[Hg] [facility] Work Phone: 04-09-2017 08:19-0500 BP Systolic 140 mm[Hg] [facility] Work Phone: 04-09-2017 08:19-0500 Height 180.34 cm [facility] Work Phone: 04-09-2017 08:19-0500 Pulse (Heart Rate) 56 /min [facility] Work Phone: 04-09-2017 08:19-0500 Respiratory Rate 20 /min [facility] Work Phone: 04-09-2017 08:19-0500 Weight 100.25 kg Jimmy Herrera MD [facility] Work Phone: 07-18-2016 10:21-0500 BMI (Body Mass Index) 32.07 kg/m2 Ludivina Bianchi PA-C [facility] Work Phone: 07-18-2016 10:21-0500 BP Diastolic 76 mm[Hg] Ludivina Bianchi PA-C [facility] Work Phone: 07-18-2016 10:21-0500 BP Systolic 140 mm[Hg] [facility] Work Phone: 07-18-2016 10:21-0500 Height 180.34 cm HAR[facility] Work Phone: 07-18-2016 10:21-0500 Pulse (Heart Rate) 61 /min Ludivina Bianchi PA-C [facility] Work Phone: 07-18-2016 10:21-0500 Respiratory Rate 20 /min Ludivina Bianchi PA-C [facility] Work Phone: 07-18-2016 10:21-0500 Weight 104.33 kg Ludivina Bianchi PA-C [facility] Work Phone: 01-05-2016 08:40-0400 BSA (Body Surface Area) 2.27 m2 Ludivina Bianchi PA-C [facility] Work Phone: 03-15-2013 08:14-0500 BMI (Body Mass Index) 32.08 kg/m2 Traic Sheehan CMA [facility] Work Phone: 03-15-2013 08:14-0500 Body weight 104.33 kg Traci Sheehan CMA [facility] Work Phone: 03-15-2013 08:14-0500 BP Diastolic 80 mm[Hg] Traci Sheehan CMA [facility] Work Phone: Encounters Encounter Date Encounter Type Care Provider Facility Start: 07-31-2020 End: 07-31-2020 Patient encounter procedure ARLENE [facility] Start: 07-06-2020 End: 07-06-2020 Patient encounter procedure ARLENE [facility] Start: 03-15-2013 End: 03-15-2013 Patient encounter procedure Nisha Carreno [facility] Start: 02-25-2013 End: 02-25-2013 Patient encounter procedure Nisha Carreno [facility] Start: 02-25-2013 End: 02-25-2013 Patient encounter status Nisha Carreno DO Work Phone: [facility] Start: 02-12-2013 End: 02-12-2013 Patient encounter procedure Nisha Carreno [facility] Start: 08-04-2012 End: 08-04-2012 Phone Encounter Nisha Carreno [facility] Start: 05-08-2012 End: 05-08-2012 Phone Encounter Nisha Carreno [facility] Start: 05-08-2012 End: 05-08-2012 Patient encounter procedure Nisha Carreno [facility] Start: 05-10-2010 End: 05-10-2010 Patient encounter procedure Nisha Carreno [facility] Start: 06-23-2007 End: 06-23-2007 Patient encounter procedure Nisha Carreno [facility] Physical examination Extension Service Specialist In Charge [facility]; [facility] Work Phone: Procedures Date Procedure Procedure Detail Performing Clinician Start: 04-09-2017 End: 04-09-2017 Follow Up Appt 9 months Cam Thibodeaux [employer] Work Phone: Start: 04-09-2017 End: 04-09-2017 PFM Cam Thibodeaux [employer] Work Phone: Start: 07-18-2016 End: 07-18-2016 Ecg routine ecg w/least 12 lds w/i&r Ludivina Bianchi PA-C Work Phone: Start: 07-18-2016 End: 07-18-2016 Follow Up Appt 6 months Ludivina Bianchi PA-C Work Phone: Start: 07-18-2016 End: 07-18-2016 Follow Up Appt Other Ludivina Bianchi PA-C Work Phone: Start: 07-18-2016 End: 07-18-2016 PFM Ludivina Bianchi PA-C Work Phone: Start: 07-05-2016 End: 07-25-2016 *Hepatic Function Panel Jimmy Herrera MD Start: 07-05-2016 End: 07-25-2016 Lipid 1996 panel - Serum or Plasma Jimmy Herrera MD Start: 01-05-2016 End: 01-05-2016 *Hepatic Function Panel Jimmy Herrera MD Start: 01-05-2016 End: 07-12-2016 Follow Up Appt 6 months Jimmy Herrera MD Start: 01-05-2016 End: 01-05-2016 Lipid 1996 panel - Serum or Plasma Jimmy Herrera MD Start: 01-05-2016 End: 07-12-2016 MMM Jimmy Herrera MD Start: 07-17-2015 End: 07-18-2015 *BMP Ludivina Bianchi PA-C Work Phone: Start: 07-17-2015 End: 07-18-2015 *Hepatic Function Panel Ludivina Bianchi PA-C Work Phone: Start: 07-17-2015 End: 07-17-2015 Follow Up Appt 6 months Ludivina Bianchi PA-C Work Phone: Start: 07-17-2015 End: 07-18-2015 Lipid 1996 panel - Serum or Plasma Ludivina Bianchi PA-C Work Phone: Start: 07-17-2015 End: 07-17-2015 PFM Ludivina Bianchi PA-C Work Phone: Start: 06-13-2015 End: 06-13-2015 Emergency Department Summary Comments: See Note; NOTES: [facility] Medical Records Department [address] [place] [address] Emergency Department Summary MR#: [id number] Acct: [id number] Name: DELICIA SHEA Rep #: [id number] : 1950 65 From: Regan Ramirez DO PCP: Terese Warren MD Status: DEP ER DATE OF SERVICE: 06/08/2015 CHIEF COMPLAINT: Laceration, left foot. HISTORY OF CHIEF COMPLAINT: A 65-year-old male was cutting wood with a chain saw when chain saw kind of slipped off a piece of wood and lacerated his left foot. He was wearing tennis shoes and socks. The patient was able to get the bleeding stopped and ambulate to the ER. The patient unknown last tetanus. PAST MEDICAL HISTORY: None. PAST SURGICAL HISTORY: Includes hip surgery. PRIMARY CARE PHYSICIAN: Dr. Warren. ALLERGIES: He has no known drug allergies. SOCIAL HISTORY: He does not smoke. Drinks alcohol occasionally. He denies any illicit drug use. PHYSICAL EXAMINATION: VITAL SIGNS: Blood pressure 164/78, temperature 97.4, heart rate 86, respirations 17, pulse ox 99. GENERAL APPEARANCE: He is awake, alert, in no acute distress. EXTREMITIES: Evaluation of the left foot reveals a 3 cm laceration over the dorsum of the left foot first metatarsal. He is neurovascularly intact distally with normal sensation, normal cap refill, he has got normal range of motion of all toes and normal extension against resistance, the great toe as well as the remainder of the toes. Exam otherwise unremarkable. EMERGENCY DEPARTMENT COURSE: Laceration repair, wound sterilely draped and prepped, anesthetized locally with 1% lidocaine, total of 3 mL used. Wound cleansed with Shur-Clens, irrigated with copious saline. Then, using 5-0 nylon, a total of 6 single interrupted sutures placed with good wound edge approximation. Prior to the suturing the wound was explored and in one of the corner of the wounds I noticed some punctate foreign body that I was able to easily remove, no other foreign bodies were noted within the wound and no evidence of tendon involvement was noted. At this point, the patient will be discharged to home after clean dressing applied. He will be started on Keflex and was given Adacel booster, instructed to follow up with his primary care physician, Dr. Warren, in 10 days for suture removal. To return if increasing pain, redness, swelling, purulent drainage or condition worsens in any way. DISPOSITION: Discharged to home in stable condition. DIAGNOSIS: Left foot laceration, 3 cm, simple repair. Regan Ramirez DO T: NTS JOB: [id number] 06/13/15 1509 <Electronically signed by Regan Rmairez DO> Date Regan Ramirez DO Cosigner Signature (If Indicated): Date CC: Terese Warren MD Date Dictated: 06/08/151127 Date Transcribed: 06/08/151127 Conservation Planner: Signed Nisha Ev Start: 06-08-2015 End: 06-08-2015 Discharge Instruction Comments: See Note; NOTES: [facility] Medical Records Department [address] [place] [address] Discharge Instruction 06/08/157 MR#: [id number] Acct: [id number] Name: DELICIA SHEA Ines Rep #: [id number] : 1950 65 From: Regan Ramirez DO PCP: Terese Warren MD Status: PRE ER ED Disposition - Plan for ED Patient: Chief Complaint: Laceration Instructions: ED Laceration, Foot Prescriptions: Cephalexin [Keflex] 500 mg PO Q6 #28 capsule Referrals: Terese Warren MD [Primary Care Provider] - 10 Day for suture removal What to do if you have Problems For any increased pain, shortness of breath, bleeding, nausea or vomiting, chest pain, or any unexpected problems, contact your doctor. Call [facility] ([phone]) or report to the closest Emergency Room. Call 911 if necessary. 06/08/15 1108 <Electronically signed by Regan Ramirez DO> Date Regan Ramirez DO Cosigner Signature (If Indicated): Date CC: Terese Cameron Ev Start: 01-06-2015 End: 07-17-2015 *Hepatic Function Panel Jimmy Herrera MD Start: 01-06-2015 End: 01-07-2015 Documentation of current medications Jimmy Herrera MD Start: 01-06-2015 End: 01-06-2015 Ecg routine ecg w/least 12 lds w/i&r Jimmy Herrera MD Start: 01-06-2015 End: 01-06-2015 Follow Up Appt 6 months Jimmy Herrera MD Start: 01-06-2015 End: 07-17-2015 Lipid 1996 panel - Serum or Plasma Jimmy Herrera MD Start: 01-06-2015 End: 01-06-2015 MMM Jimmy Herrera MD Start: 08-18-2014 End: 01-02-2015 *Hepatic Function Panel Jimmy Herrera MD Start: 08-18-2014 End: 01-02-2015 Lipid 1996 panel - Serum or Plasma Jimmy Herrera MD Start: 03-02-2014 End: 03-02-2014 Ecg routine ecg w/least 12 lds w/i&r Ludivina Bianchi PA-C Work Phone: Start: 03-02-2014 End: 03-02-2014 Follow Up Appt 6 months Ludivina Bianchi PA-C Work Phone: Start: 03-02-2014 End: 03-02-2014 Follow Up Appt Other Ludivina Bianchi PA-C Work Phone: Start: 03-02-2014 End: 03-02-2014 PFM Ludivina Bianchi PA-C Work Phone: Start: 02-09-2014 End: 02-17-2014 *Hepatic Function Panel Jimmy Herrera MD Start: 02-09-2014 End: 02-17-2014 Lipid 1996 panel - Serum or Plasma Jimmy Herrera MD Start: 08-30-2013 End: 02-17-2014 *Hepatic Function Panel Jimmy Herrera MD Start: 08-30-2013 End: 08-30-2013 Ecg routine ecg w/least 12 lds w/i&r Jimmy Herrera MD Start: 08-30-2013 End: 02-18-2014 Follow Up Appt 6 months Jimym Herrera MD Start: 08-30-2013 End: 02-17-2014 Lipid 1996 panel - Serum or Plasma Jimmy Herrera MD Start: 08-30-2013 End: 02-18-2014 MMM Jimmy Herrera MD Start: 07-10-2013 End: 08-17-2013 *Hepatic Function Panel Ludivina Bianchi PA-C Work Phone: Start: 07-10-2013 End: 08-17-2013 Lipid 1996 panel - Serum or Plasma Ludivina Bianchi PA-C Work Phone: Start: 02-26-2013 End: 02-26-2013 Chest PA and Lateral Comments: See Note; NOTES: [facility] Imaging Services [address] [place] [id number] Radiology Report MR#: [id number] Acct: [id number] Name: DELICIA SHEA Rep #: [id number] : 1950 M 62 From: Srinivasan Baker MD PCP: Status: REG CLI Study: Chest PA and Lateral Date of Exam: 02/26/13 Exam# [id number] Ordering Dr: Terese Warren MD STUDY: X-RAY CHEST REASON FOR EXAM: Male, 62 years old. Difficulty breathing. TECHNIQUE: PA and lateral views of the chest. COMPARISON: Comparison is made with prior examination dated March 08, 2011. FINDINGS: Hyperinflation. There is no demonstrated pleural abnormality. Normal size heart. Normal mediastinum and alfredo. Normal visualized pulmonary arteries. There is atherosclerotic tortuosity of the aortic arch and descending thoracic aorta. Normal visualized thoracic spine. There is a healed left fourth rib fracture anteriorly. This is unchanged. There is no demonstrated abnormality of the visualized soft tissue structures of the upper abdomen. IMPRESSION: Hyperinflation. No acute abnormality is seen. Signed: Srinivasan Baker M.D. February 26, 2013 at 9:53:22 AM EDT [phone] Electronically Signed GP/GP If you are the referring physician and would like to consult with the radiologist who provided this interpretation, please contact Srinivasan Baker M.D. at [phone]. If this radiologist is unavailable, you will be directed to another radiologist to assist. If you are a patient with a question regarding this report, please contact your referring physician directly. Professional Interpretation Provided By: [employer], Phone , These documents contain legally protected and confidential health information intended only for the use of the individual or entity named above. If you are not the intended recipient, you are hereby notified that any disclosure, copying, distribution, or other use of these documents is strictly prohibited. If you have received this information in error, please notify the sender immediately and arrange for the return or destruction of these documents. CC: Teerse Warren MD Conservation Planner: Signed Terese Warren Work Phone: Start: 01-12-2013 End: 01-12-2013 *Hepatic Function Panel Ludivina Bianchi PA-C Work Phone: Start: 01-12-2013 End: 01-12-2013 Follow Up Appt 6 months Ludivina Bianchi PA-C Work Phone: Start: 01-12-2013 End: 01-12-2013 PFM Ludivina Bianchi PA-C Work Phone: Start: 07-13-2012 End: 12-31-2012 Ecg routine ecg w/least 12 lds w/i&r Jimmy Herrera MD Start: 07-13-2012 End: 12-31-2012 Follow Up Appt 6 months Jimmy Herrera MD Start: 07-13-2012 End: 12-31-2012 MMM Jimmy Herrera MD Start: 12-30-2011 End: 12-31-2012 *Hepatic Function Panel Jimmy Herrera MD Start: 12-30-2011 End: 12-31-2012 Lipid 1996 panel - Serum or Plasma Jimmy Herrera MD Start: 12-27-2011 End: 12-27-2011 Ecg routine ecg w/least 12 lds w/i&r Jimmy Herrera MD Start: 12-27-2011 End: 12-31-2012 Follow Up Appt 6 months Jimmy Herrera MD Start: 06-26-2011 End: 06-28-2011 *Hepatic Function Panel Jimmy Herrera MD Start: 06-26-2011 End: 12-31-2012 Ecg routine ecg w/least 12 lds w/i&r Jimmy Herrera MD Start: 06-26-2011 End: 12-31-2012 Follow Up Appt 6 months Jimmy Herrera MD Start: 06-26-2011 End: 06-28-2011 Lipid 1996 panel - Serum or Plasma Jimmy Herrera MD Start: 04-01-2011 End: 12-31-2012 INR in Platelet poor plasma by Coagulation assay Jimmy Herrera MD Plan of Treatment Date Care Activity Detail Author Start: 01-19-2018 End: 01-19-2018 Appointment Appointment [facility] Work Phone: Start: 04-09-2017 End: 04-09-2017 Follow Up Appt 9 months Follow Up Appt 9 months [facility] Work Phone: Start: 04-09-2017 End: 04-09-2017 PFM PFM [facility] Work Phone: Start: 04-09-2017 End: 04-09-2017 Appointment Appointment [facility] Work Phone: Start: 01-20-2017 End: 07-25-2016 *Hepatic Function Panel *Hepatic Function Panel [facility] Work Phone: Start: 01-20-2017 End: 07-25-2016 Lipid panel [AGGREGATE] *Lipid Profile CC PCP [facility] Work Phone: Start: 07-18-2016 End: 07-18-2016 Ecg routine ecg w/least 12 lds w/i&r EKG (In office) [facility] Work Phone: Start: 07-18-2016 End: 07-18-2016 Follow Up Appt 6 months Follow Up Appt 6 months [facility] Work Phone: Start: 07-18-2016 End: 07-18-2016 Follow Up Appt Other Follow Up Appt Other [facility] Work Phone: Start: 07-18-2016 End: 07-18-2016 PFM PFM [facility] Work Phone: Start: 07-05-2016 End: 07-25-2016 *Hepatic Function Panel *Hepatic Function Panel [facility] Work Phone: Start: 07-05-2016 End: 07-25-2016 Lipid panel [AGGREGATE] *Lipid Profile CC PCP [facility] Work Phone: Start: 01-05-2016 End: 01-05-2016 *Hepatic Function Panel *Hepatic Function Panel [facility] Work Phone: Start: 01-05-2016 End: 07-12-2016 Follow Up Appt 6 months Follow Up Appt 6 months [facility] Work Phone: Start: 01-05-2016 End: 01-05-2016 Lipid panel [AGGREGATE] *Lipid Profile CC PCP [facility] Work Phone: Start: 01-05-2016 End: 07-12-2016 MMM MMM [facility] Work Phone: Start: 07-17-2015 End: 07-18-2015 *BMP *BMP [facility] Work Phone: Start: 07-17-2015 End: 07-18-2015 *Hepatic Function Panel *Hepatic Function Panel [facility] Work Phone: Start: 07-17-2015 End: 07-17-2015 Follow Up Appt 6 months Follow Up Appt 6 months [facility] Work Phone: Start: 07-17-2015 End: 07-18-2015 Lipid panel [AGGREGATE] *Lipid Profile CC PCP [facility] Work Phone: Start: 07-17-2015 End: 07-17-2015 PFM PFM [facility] Work Phone: Start: 01-06-2015 End: 07-17-2015 *Hepatic Function Panel *Hepatic Function Panel [facility] Work Phone: Start: 01-06-2015 End: 01-06-2015 Ecg routine ecg w/least 12 lds w/i&r EKG (In office) [facility] Work Phone: Start: 01-06-2015 End: 01-06-2015 Follow Up Appt 6 months Follow Up Appt 6 months [facility] Work Phone: Start: 01-06-2015 End: 07-17-2015 Lipid panel [AGGREGATE] *Lipid Profile CC PCP [facility] Work Phone: Start: 01-06-2015 End: 01-06-2015 MMM MMM [facility] Work Phone: Start: 08-18-2014 End: 01-02-2015 *Hepatic Function Panel *Hepatic Function Panel [facility] Work Phone: Start: 08-18-2014 End: 01-02-2015 Lipid panel [AGGREGATE] *Lipid Profile CC PCP [facility] Work Phone: Start: 03-02-2014 End: 03-02-2014 Ecg routine ecg w/least 12 lds w/i&r EKG (In office) [facility] Work Phone: Start: 03-02-2014 End: 03-02-2014 Follow Up Appt 6 months Follow Up Appt 6 months [facility] Work Phone: Start: 03-02-2014 End: 03-02-2014 Follow Up Appt Other Follow Up Appt Other [facility] Work Phone: Start: 03-02-2014 End: 03-02-2014 PFM PFM [facility] Work Phone: Start: 02-09-2014 End: 02-17-2014 *Hepatic Function Panel *Hepatic Function Panel [facility] Work Phone: Start: 02-09-2014 End: 02-17-2014 Lipid panel [AGGREGATE] *Lipid Profile CC PCP [facility] Work Phone: Start: 08-30-2013 End: 02-17-2014 *Hepatic Function Panel *Hepatic Function Panel [facility] Work Phone: Start: 08-30-2013 End: 02-17-2014 Ecg routine ecg w/least 12 lds w/i&r EKG (In office) [facility] Work Phone: Start: 08-30-2013 End: 02-18-2014 Follow Up Appt 6 months Follow Up Appt 6 months [facility] Work Phone: Start: 08-30-2013 End: 02-17-2014 Lipid panel [AGGREGATE] *Lipid Profile CC PCP [facility] Work Phone: Start: 08-30-2013 End: 02-18-2014 MMM MMM [facility] Work Phone: Start: 07-10-2013 End: 08-17-2013 *Hepatic Function Panel *Hepatic Function Panel [facility] Work Phone: Start: 07-10-2013 End: 08-17-2013 Lipid panel [AGGREGATE] *Lipid Profile CC PCP [facility] Work Phone: Start: 02-25-2013 Natriuretic peptide BNTP (45120) [facility] Work Phone: Start: 02-12-2013 Patient Education Cough: cough [facility] Work Phone: Start: 01-12-2013 End: 01-12-2013 *Hepatic Function Panel *Hepatic Function Panel [facility] Work Phone: Start: 01-12-2013 End: 01-12-2013 Follow Up Appt 6 months Follow Up Appt 6 months [facility] Work Phone: Start: 01-12-2013 End: 01-12-2013 PFM PFM [facility] Work Phone: Start: 07-13-2012 End: 12-31-2012 Ecg routine ecg w/least 12 lds w/i&r EKG (In office) [facility] Work Phone: Start: 07-13-2012 End: 12-31-2012 Follow Up Appt 6 months Follow Up Appt 6 months [facility] Work Phone: Start: 07-13-2012 End: 12-31-2012 MMM MMM [facility] Work Phone: Start: 12-30-2011 End: 12-31-2012 *Hepatic Function Panel *Hepatic Function Panel [facility] Work Phone: Start: 12-30-2011 End: 12-31-2012 Lipid panel [AGGREGATE] *Lipid Profile [facility] Work Phone: Start: 12-27-2011 End: 12-27-2011 Ecg routine ecg w/least 12 lds w/i&r EKG (In office) [facility] Work Phone: Start: 12-27-2011 End: 12-31-2012 Follow Up Appt 6 months Follow Up Appt 6 months [facility] Work Phone: Start: 06-26-2011 End: 06-28-2011 *Hepatic Function Panel *Hepatic Function Panel [facility] Work Phone: Start: 06-26-2011 End: 12-31-2012 Ecg routine ecg w/least 12 lds w/i&r EKG (In office) [facility] Work Phone: Start: 06-26-2011 End: 12-31-2012 Follow Up Appt 6 months Follow Up Appt 6 months [facility] Work Phone: Start: 06-26-2011 End: 06-28-2011 Lipid panel [AGGREGATE] *Lipid Profile [facility] Work Phone: Start: 04-01-2011 End: 12-31-2012 INR Coag RelTime (PPP) *PT/INR [facility] Work Phone: Start: 05-10-2010 Patient Education Sore throat: diagnosis and treatment [facility] Work Phone: Start: 05-10-2010 Provider Instructions for Treatment *Antibiotic Usage Education - Male [facility] Work Phone: Start: 05-10-2010 Cul bact xcpt urine blood/stool aerobic isol LEONARDO CULTURE-OTHER (12835) [facility] Work Phone: Start: 06-23-2007 Patient Education Sore throat: diagnosis and treatment [facility] Work Phone: Start: 06-23-2007 Provider Instructions for Treatment [facility] Work Phone: Start: 06-23-2007 Cul bact xcpt urine blood/stool aerobic isol LEONARDO CULTURE-OTHER (11854) [facility] Work Phone: Patient Education [facility] Work Phone: [facility] Work Phone: [facility] Work Phone: [facility] Work Phone: [facility] Work Phone: [facility] Work Phone: [facility] Work Phone: Payers Date Payer Category Payer Policy ID Unknown Social History Date Type Detail Facility Alcohol Use Alcohol Use [facility] Work Phone: Instructions Note Date & Type Note Facility [facility]; [facility] Work Phone: Instructions Note Date & Type Note Facility [facility] Work Phone: Family History Unknown Family Member Name Dates Details Father Comments:[place] at 49 yo Status:Active Mother Comments:lived to 88 healthy until then Status:Active Unknown Family Member Name Dates Details Father Comments:[place] at 49 yo Status:Active Mother Comments:lived to 88 healthy until then Status:Active Unknown Family Member Name Dates Details Father Comments:[place] at 49 yo Status:Active Mother Comments:lived to 88 healthy until then Status:Active Instructions Name Dates Details Patient Instructions Indication:Cough Start:25-Feb-2013 Instruction Type:Provider Instructions for Treatment Patient Instructions Indication:Influenza A (H1N1) Start:08-May-2012 Instruction Type:Provider Instructions for Treatment Summary Purpose Advance Directives No Advanced Directives Records Found Additional Source Comments (unrecognized sect ion and content) No Status Records Found INFORMATION SOURCE (unrecogn ized section and content) FOR RECORDS PERTAINING TO PATIENTS WHO ARE OR HAVE BEEN ENROLLED IN A CHEMICAL DEPENDENCY/SUBSTANCEABUSE PROGRAM, SOME INFORMATION MAY BE OMITTED. This clinical summary was aggregated from multiple sources. Caution should be exercised in using it in the provision of clinical care. This summary normalizes information from multiple sources, and as a consequence, information in this document may materially change the coding, format and clinical context of patient data. In addition, data may be omitted in some cases. CLINICAL DECISIONS SHOULD BE BASED ON THE PRIMARY CLINICAL RECORDS. [employer] [facility]. provides no warranty or guarantee of the accuracy or completeness of information in this document.
[2023-06-06 18:49] LABS: International Normalized Ratio 1.1; Partial Thromboplast Time 28.3 Seconds (24.1-36.2); Prothrombin Time (Protime)PT. 14.1 SECONDS (11.7-14.9)
[2023-06-06 18:54] LABS: Anion Gap 5 (5-15); BUN 26 mg/dL (7-18); BUN/Creat Ratio 25.5 RATIO (10-20); Calcium,Total 9.1 mg/dL (8.5-10.1); Chloride 111 mmol/L (98-107); Creatinine, Serum 1.02 mg/dL (0.70-1.30); EST Glomerular Filtration Rate 76 mL/min (>60); Est Glom Filt Rate - Afr Amer 92 mL/min (>60); Estimated Creatinine Clearance 80.39 ml/min; Glucose 103 mg/dL (74-106); Potassium 4.4 mmol/L (3.5-5.1); Sodium Level 140 mmol/L (136-145)
[2023-06-06 19:00] LABS: Differential Indicated SCAN CRITERIA MET
--- NOTE | 2023-06-06 19:40 | NURSING ---
consent signed and placed on on chart
== END 2023-06-06 23:36 | disposition home or self-care (01) ==
PROVIDERS: Emergency Provider Emergency Medicine; PCP Nurse Practitioner Family; Visit Provider Emergency Medicine
DX: D64.9 Anemia, unspecified (principal); I48.0 Paroxysmal atrial fibrillation; Z79.01 Long term (current) use of anticoagulants; I10 Essential (primary) hypertension; E78.00 Pure hypercholesterolemia, unspecified; Z79.899 Other long term (current) drug therapy; Z96.643 Presence of artificial hip joint, bilateral
CPT/HCPCS: 36430; 80048; 82274; 85025; 85610; 85730; 86850; 86900; 86901; 86920; 86922; 93005; 99284; J7030; P9016

== ENCOUNTER → 2023-07-10 | Outpatient (CLI) | payer MEDICARE, BC, SELFPAY ==
--- NOTE | 2023-07-09 | IMM_PTH ---
PATHOLOGY RESULTS PATIENT: DELICIA SHEA LOC: [place] U#:[id number] AGE/SX: 73/M ROOM: RE07/10/[address]: Dr. Rekha Sena MD : 1950 BED: DIS: 07/10/2023 SPEC #: [id number] RECD: 07/11/23 13:20 STATUS: RAHAT REImelda #: [id number] SETH: 07/09/23 00:[address]: Rekha Sena DEPT: IMMUNOHISTOCHEMISTRY RECD BY: Tereza Owens ENTERED: 07/11/23 13:24 SP TYPE: IMMUNO Tissues: Bone marrow of iliac crest Procedures: BCL-2 (add) BCL-6 (add) CD10 (add) CD138 (add) CD15 (add) CD20 (add) CD23 (add) CD3 (add) CD30 (add) CD34 (add) CD43 (add) CD45 (add) CD5 (add) CD56 (add) CD79A (add) CYCLIN (add) KAPPA (add) KI-67 (add) LAMBDA (add) P53 (add) MUM1 (add) C-MYC (add) Pankeratin (initial) PHYSICIAN & [place] [id number] SPECIMEN INFORMATION: Tissue Source: B - Bone marrow clot Clinical Info: Macrocytic anemia, ? MDS Specimen Number: [id number] CPT code: 68241, 09367 x22 METHODOLOGY: Deparaffinized sections of prefer/formalin-fixed tissue or PAP/DQ stained slides are incubated with monoclonal/polyclonal antibodies/oligonucleotide probes. Localization is made via biotin free immunoperoxidase method. Appropriate controls are performed and reacted as expected. Results on target cell population are indicated in the following table: RESULTS: ANTIBODY / CLONE RESULT AE1-3 (AE1/AE3/PCK26) negative CD3 (PS1) negative CD5 (SP10) negative CD10 (56C6) negative CD15 (MMA) negative CD20 (L26) negative CD23 (1B12) negative CD30 (Guillermo-H2) negative CD43 (L60) positive CD45 (RP2/18) negative CD79a (11E3) negative CD138 (B-A38) negative BCL-2 (bcl-2/100/D5) positive BCL-6 (YP288S/A8) negative [place] D1/BCL-1 (SP4) negative MUM1 (MRQ-43) negative C-MYC (Y69) negative [place] (polyclonal) negative Lambda (polyclonal) negative CD34 (QBEnd-10) negative CD56 (123C3.D5) negative P53 (DO-7) positive, rare Ki-67 (30-9) positive These tests were developed and their performance characteristics determined by [facility]. They may not have been cleared or approved by the U.S. Food and Drug Administration. The FDA has determined that such clearance or approval is not necessary. The above immunohistochemical/dualISH markers are ordered and reviewed by the Pathologist. INTERPRETATION: B. Bone marrow clot: No evidence of lymphoproliferative disorder. No evidence of plasma cell dyscrasia. No increased blast cells noted. AM:gurjit 07/14/2023
--- NOTE | 2023-07-09 09:35 | BMB_PTH ---
PATHOLOGY RESULTS PATIENT: DELICIA SHEA LOC: [place] U#:[id number] AGE/SX: 73/M ROOM: RE07/10/[address]: Dr. Rekha Sena MD : 1950 BED: DIS: 07/10/2023 SPEC #: [id number] RECD: 07/10/23 10:42 STATUS: RAHAT MUNDO #: [id number] SETH: 07/09/23 09:[address]: Rekha Sena DEPT: BONE MARROW RECD BY: Yari Webb ENTERED: 07/10/23 10:43 SP TYPE: BMB Tissues: Bone marrow, NOS Bone marrow, NOS Bone marrow, NOS Procedures: Bone Marrow Aspiration Bone Marrow Core Biopsy Iron Stain Bone Marrow HEADER OPERATION: CT-guided bone marrow biopsy and aspiration PRE-OP DIAGNOSIS: Macrocytic anemia, ? 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 SEE COMMENT AM:gurjit 07/16/2023 COMMENT Sections show a hypercellular bone marrow (75-80%) with dysplastic changes consisting of atypical granulocytes and atypical megakaryocytes. There is myeloid hyperplasia and erythroid hypoplasia present. Flow cytometry analysis reveals an aberrant myeloblast population representing approximately 3% of total cells analyzed with myelopoietic phenotypic aberrancy. FISH MDS panel results are negative for abnormal chromosomal changes using DNA specific probes. No deletion or trisomy associated with MDS is identified. These findings are concerning for underlying myeloid neoplastic process such as myelodysplasia. Clinical correlation is suggested. Cytogenetic study is pending and will be reported as an addendum. Case has been reviewed in consultation with Dr. Scales who concurs with the above diagnosis. IDC:REGINA BONE MARROW STUDY Slides are reviewed. CBC DATE: 07/10/23 WBC 5.6; RBC 2.4; HGB 8.5; HCT 25.9; MCV 107.9; RDW 83.3; PLTS 172,000 SEGS 46.6%; LYMPHS 41.5%; MONOS 3.4%; EOS 5.1%; BASOS 0.2% PERIPHERAL SMEAR: Submitted. RBC: Macrocytic anemia, teardrop cells present. WBC: PLTS: Normomorphic BONE MARROW ASPIRATE DIFFERENTIAL: 200 cell count. Blasts % (normal 0-2): 3 Promyelocytes % (normal 1-5): 8 Myelocytes and metamyelocytes % (normal 17-41): 42 Bands and Segs % (normal 15-32): 20 Eos % (normal 1-6): 7 Basos % (normal 0-1): 0 Monocytes % (normal 0-4): 0 Erythroid Precursors % (normal 17-35): 11 Lymphocytes % (normal 7-13): 7 Plasma Cells % (normal 0-2): 2 ASPIRATE FINDINGS: Site: Not specified Spicular Cellular M/E ratio: 7.2 (Normal 1.5 - 4.0) Megakaryocytes: Hypersegmented and occasional atypical forms present. Erythropoiesis: Hypoplastic Granulopoiesis: Hyperplastic with left shift and occasional atypical forms. CORE BIOPSY FINDINGS: Site: Not specified Adequacy: Inadequate Cellularity %: 0% M/E ratio: Not applicable Comment: No bone marrow is identified. ASPIRATE CLOT FINDINGS: Site: Not specified Marrow Particles: Many Cellularity %: 75-80% M/E ratio: Increased Megakaryocytes: Hypersegmented, hypolobated and micromegakaryocytes present. Granuloma(s): 0 Lymphoid aggregate(s): 0 Atypical infiltrate(s): 0 Comment: Increased cellularity with prominent left shift. SPECIAL STAINS (with matched controls): Iron: Within normal limits. Reticulin: Within normal limits. PAS: Highlights myeloid elements and megakaryocytes. BONE MARROW GROSS A - Received is a container labeled with the patient's name and designated bone marrow. The specimen consists of multiple minute fragments of holguin tissue measuring in aggregate 0.1 x <0.1 x <0.1 cm. The specimen is submitted for cell block preparation. B - Received labeled with the patient's name and designated bone marrow is a specimen that consists of approximately 4 ml of bloody fluid that on filtration yields multiple irregular fragments of red-holguin tissue measuring in aggregate 2.5 x 2.0 x 0.1 cm. The specimen is totally submitted in one cassette. C - Also received are 17 unstained and 1 peripheral stained slides. The unstained slides are submitted for appropriate staining. Also received is one green top tube which is sent to our reference lab for flow, cytogenetics & MDS. 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
[2023-07-10] VITALS (13 sets, daily range): BP systolic 109–151; BP diastolic 65–100; PULSE 91–116; RESP 16–22; TEMP 36.6; O2SAT 95–100; BMI 32.3
--- OUTSIDE RECORDS SUMMARY | 2023-07-10 07:42 | XMS RPT_ITS | CCD ---
Author Name Unknown Address [address] [place] [address] Organization [facility] Care Team Providers Care Tower Loader Operator Name Role Phone Jimmy Ely MD Unavailable HARSH Bianchi, Ludivina Arellano Unavailable Nisha Carreno Unavailable Terese Warren Unavailable Valeria Bernard Unavailable Unavailable Sissy, Traci Unavailable Unavailable Terese Warren Unavailable Prints And Drawings Curator, System Unavailable Unavailable Unavailable Unavailable ARLENE PAGE Attending Unavailable KAYLEEARLENE CARRILLO Primary Care Unavailable KAYLEEARLENE CARRILLO Admitting Unavailable KAYLEEARLENE CARRILLO Attending Unavailable KAYLEEARLENE CARRILLO Primary Care Unavailable KAYLEEARLENE CARRILLO Admitting Unavailable Nisha Carreno DO Unavailable Terese Warren MD Unavailable Valeria Bernard Unavailable Unavailable Mansharron VALVERDE, Traci Unavailable Unavailable Terese Warren MD Unavailable Prints And Drawings Curator, System Unavailable Unavailable Unavailable Unavailable Nisha Carreno DO Unavailable Terese Warren MD Unavailable Susan Woods Primary Care Provider SELF, SELF Referring Unavailable JIMMY ELY Attending Unavailable Medications Current Medications Medication Drug Class(es) Dates Sig (Normalized) Sig (Original) apixaban 5 mg oral tablet (1 source) Factor Xa Inhibitor Start: 06-24-2023 take 1 tablet by mouth every twelve hours apixaban 5 MG tablet Indications: PAF (paroxysmal atrial fibrillation) , Essential hypertension , Hyperlipidemia, unspecified hyperlipidemia type , FATIMAH (obstructive sleep apnea) Take 1 tablet by mouth every 12 hours. 06/24/2023 Active Elderberry preparation (1 source) take 2 capsules by mouth once daily ELDERBERRY PO Take 2 capsules by mouth daily. Active melatonin 5 mg chewable tablet (1 source) Melatonin 5 MG C hew Tab Chew 2 tablets at bedtime. Active Multivitamin w/ minerals tablet (1 source) take 1 tablet by mouth once daily Multivitamin w/ minerals tablet Take 1 tablet by mouth daily. Active pravastatin sodium 40 mg oral tablet (5 sources) HMG-CoA Reductase Inhibitor Start: 03-17-2023 take 1 tablet by mouth once daily Pravastatin 40 MG tablet Take 1 tablet by mouth daily. 03/17/2023 Active Completed/Discontinued Medications Medication Drug Class(es) Dates Sig [...] Date Documented Da te Episodic/Chronic Cardiac dysrhythmias (16 sources) Sick sinus syndrome; Translations: [Ventricular premature [...] Time Vital Sign Value Performing Clinician Facility 06-24-2023 14:54-0500 Body height 177.8 cm Jimmy Ely MD Work Phone: [facility] 06-24-2023 14:54-0500 Body mass index (BMI) [Ratio] 33 kg/m2 Jimmy Ely MD Work Phone: [facility] 06-24-2023 14:54-0500 Body weight 104.33 kg Jimmy Ely MD Work Phone: [facility] 06-24-2023 14:54-0500 Diastolic blood pressure 62 mm[Hg] Jimmy Ely MD Work Phone: [facility] 06-24-2023 14:54-0500 Heart rate 62 /min Jimmy Ely MD Work Phone: [facility] 06-24-2023 14:54-0500 Systolic blood pressure 126 mm[Hg] Jimmy Ely MD Work Phone: [facility] 04-09-2017 08:19-0500 BMI (Body Mass Index) 30.82 kg/m2 [facility] Work Phone: 04-09-2017 08:19-0500 BP Diastolic 64 mm[Hg] [facility] Work Phone: 04-09-2017 08:19-0500 BP Systolic 140 mm[Hg] [facility] Work Phone: 04-09-2017 08:19-0500 Height 180.34 cm [facility] Work Phone: 04-09-2017 08:19-0500 Pulse (Heart Rate) 56 /min [facility] Work Phone: 04-09-2017 08:19-0500 Respiratory Rate 20 /min Jimmy Ely MD [facility] Work Phone: 04-09-2017 08:19-0500 Weight 100.25 kg Jimmy Ely MD [facility] Work Phone: 07-18-2016 10:21-0500 BMI (Body Mass Index) 32.07 kg/m2 Ludivina Bianchi PA-C [facility] Work Phone: 07-18-2016 10:21-0500 BP Diastolic 76 mm[Hg] Ludivina Bianchi PA-C [facility] Work Phone: 07-18-2016 10:21-0500 BP Systolic 140 mm[Hg] Ludivina Bianchi PA-C [facility] Work Phone: 07-18-2016 10:21-0500 Height 180.34 cm Ludivina Bianchi PA-C [facility] Work Phone: 07-18-2016 10:21-0500 Pulse (Heart Rate) 61 /min Ludivina Bianchi PA-C [facility] Work Phone: 07-18-2016 10:21-0500 Respiratory Rate 20 /min Ludivina Bianchi PA-C [facility] Work Phone: 07-18-2016 10:21-0500 Weight 104.33 kg Ludivina Bianchi PA-C [facility] Work Phone: 01-05-2016 08:40-0400 BSA (Body Surface Area) 2.27 m2 Ludivina Bianchi PA-C [facility] Work Phone: 03-15-2013 08:14-0500 BMI (Body Mass Index) 32.08 kg/m2 Traci Sheehan CMA [facility] Work Phone: 03-15-2013 08:14-0500 Body weight 104.33 kg Traci Sheehan CMA [facility] Work Phone: 03-15-2013 08:14-0500 BP Diastolic 80 mm[Hg] Traci Sheehan STARBUCKS CLERK [facility] Work Phone: Encounters Encounter Date Encounter Type Care Provider Facility Start: 06-24-2023 ambulatory SELF SELF Facility:Le[facility] Start: 06-24-2023 End: 06-24-2023 Office outpatient new 45 minutes Jimmy Ely MD Work Phone: [facility] Procedures Date Procedure Procedure Detail Performing Clinician Start: 04-09-2017 End: 04-09-2017 Follow Up Appt 9 months Cam Thibodeaux [employer] COMMISSION[employer] Work Phone: Start: 04-09-2017 End: 04-09-2017 PFM Cam Thibodeaux [employer] COMM[employer] Work Phone: Start: 07-18-2016 End: 07-18-2016 Ecg routine ecg w/least 12 lds w/i&r Ludivina Bianchi PA-C Work Phone: Start: 07-18-2016 End: 07-18-2016 Follow Up Appt 6 months Ludivina Bianchi PA-C Work Phone: Start: 07-18-2016 End: 07-18-2016 Follow Up Appt Other Ludivina Bianchi PA-C Work Phone: Start: 07-18-2016 End: 07-18-2016 PFEileen Bianchi PA-C Work Phone: Start: 07-05-2016 End: 07-25-2016 *Hepatic Function Panel Jimmy Ely MD Start: 07-05-2016 End: 07-25-2016 Lipid 1996 panel - Serum or Plasma Jimmy Ely MD Start: 01-05-2016 End: 01-05-2016 *Hepatic Function Panel Jimmy Ely MD Start: 01-05-2016 End: 07-12-2016 Follow Up Appt 6 months Jimmy Ely MD Start: 01-05-2016 End: 01-05-2016 Lipid 1996 panel - Serum or Plasma Jimmy Ely MD Start: 01-05-2016 End: 07-12-2016 MMM Jimmy Ely MD Start: 07-17-2015 End: 07-18-2015 *BMP Ludivina [...] Emergency Department Summary Comments: See Note; NOTES: [facility] Medical Records Department [address] [place] [address] Emergency Department Summary MR#: [id number] Acct: [id number] Name: WM SANTACRUZ Rep #: [id number] : 1950 65 From: Regan Ramirez DO [...] repair. Regan Ramirez DO T: NTS JOB: [id number] 06/13/15 1509 <Electronically signed by Regan Ramirez DO> Date Regan Ramirez DO Cosigner Signature (If Indicated): Date CC: Terese Warren MD Date Dictated: 06/08/15 1128 Date Transcribed: 06/08/151127 Linen Checker: Signed Nisha Carreno Start: 06-08-2015 End: 06-08-2015 Discharge Instruction Comments: See Note; NOTES: [facility] Medical Records Department [address] [place] [address] Discharge Instruction 06/08/15 1107 MR#: [id number] Acct: [id number] Name: WM SANTACRUZ Rep #: [id number] : 1950 65 From: Regan Ramirez DO [...] any unexpected problems, contact your doctor. Call [facility] ([phone]) or report to the closest Emergency Room. Call 911 if necessary. 06/08/15 1108 <Electronically signed by Regan Ramirez DO> Date Regan Ramirez DO Cosigner Signature (If Indicated): Date CC: Terese Carreno Start: 01-06-2015 End: 07-17-2015 *Hepatic Function Panel Jimmy Ely MD Start: 01-06-2015 End: 01-07-2015 Documentation of current medications Jimmy Ely MD Start: 01-06-2015 End: 01-06-2015 Ecg routine ecg w/least 12 lds w/i&r Jimmy Ely MD Start: 01-06-2015 End: 01-06-2015 Follow Up Appt 6 months Jimmy Ely MD Start: 01-06-2015 End: 07-17-2015 Lipid 1996 panel - Serum or Plasma Jimmy Ely MD Start: 01-06-2015 End: 01-06-2015 MMM Jimmy Ely MD Start: 08-18-2014 End: 01-02-2015 *Hepatic Function Panel Jimmy Ely MD Start: 08-18-2014 End: 01-02-2015 Lipid 1996 panel - Serum or Plasma Jimmy Ely MD Start: 03-02-2014 End: 03-02-2014 Ecg routine ecg w/least 12 lds w/i&r Ludivina Bianchi PA-C Work Phone: Start: 03-02-2014 End: 03-02-2014 Follow Up Appt 6 months Ludivina Bianchi PA-C Work Phone: Start: 03-02-2014 End: 03-02-2014 Follow Up Appt Other Ludivina Bianchi PA-C Work Phone: Start: 03-02-2014 End: 03-02-2014 PF Ludivina Bianchi PA-C Work Phone: Start: 02-09-2014 End: 02-17-2014 *Hepatic Function Panel Jimmy Ely MD Start: 02-09-2014 End: 02-17-2014 Lipid 1996 panel - Serum or Plasma Jimmy Ely MD Start: 08-30-2013 End: 02-17-2014 *Hepatic Function Panel Jimmy Ely MD Start: 08-30-2013 End: 08-30-2013 Ecg routine ecg w/least 12 lds w/i&r Jimmy Ely MD Start: 08-30-2013 End: 02-18-2014 Follow Up Appt 6 months Jimmy Ely MD Start: 08-30-2013 End: 02-17-2014 Lipid 1996 panel - Serum or Plasma Jimmy Ely MD Start: 08-30-2013 End: 02-18-2014 MMM Jimmy Ely MD Start: 07-10-2013 End: 08-17-2013 *Hepatic Function Panel Ludivina Bianchi PA-C Work Phone: Start: 07-10-2013 End: 08-17-2013 Lipid 1996 panel - Serum or Plasma Ludivina Bianchi PA-C Work Phone: Start: 02-26-2013 End: 02-26-2013 Chest PA and Lateral Comments: See Note; NOTES: [facility] Imaging Services [address] [place] [address] Radiology Report MR#: [id number] Acct: [id number] Name: WM SANTACRUZ Rep #: [id number] : 1950 M 62 From: Srinivasan Baker MD PCP: Status: REG CLI Study: Chest PA and Lateral Date of Exam: 02/26/13 Exam# [id number] Ordering Dr: Terese Warren MD STUDY: X-RAY [...] February 26, 2013 at 9:53:22 AM EDT [phone] Electronically Signed GP/GP If you are the referring physician and would like to consult with the radiologist who provided this interpretation, please contact Srinivasan Baker M.D. at [phone]. If this radiologist is unavailable, you will be directed to another radiologist to assist. If you are a patient with a question regarding this report, please contact your referring physician directly. Professional Interpretation Provided By: [employer], Phone , These documents contain legally protected [...] return or destruction of these documents. CC: Terese Warren MD Linen Checker: Signed Terese Warren Work Phone: Start: 01-12-2013 End: 01-12-2013 *Hepatic Function Panel Ludivina Bianchi PA-C Work Phone: Start: 01-12-2013 End: 01-12-2013 Follow Up Appt 6 months Ludivina Bianchi PA-C Work Phone: Start: 01-12-2013 End: 01-12-2013 PFM Ludivina Bianchi PA-C Work Phone: Start: 07-13-2012 End: 12-31-2012 Ecg routine ecg w/least 12 lds w/i&r Jimmy Ely MD Start: 07-13-2012 End: 12-31-2012 Follow Up Appt 6 months Jimmy Ely MD Start: 07-13-2012 End: 12-31-2012 MMM Jimmy Ely MD Start: 12-30-2011 End: 12-31-2012 *Hepatic Function Panel Jimmy Ely MD Start: 12-30-2011 End: 12-31-2012 Lipid 1996 panel - Serum or Plasma Jimmy Ely MD Start: 12-27-2011 End: 12-27-2011 Ecg routine ecg w/least 12 lds w/i&r Jimmy Ely MD Start: 12-27-2011 End: 12-31-2012 Follow Up Appt 6 months Jimmy Ely MD Start: 06-26-2011 End: 06-28-2011 *Hepatic Function Panel Jimmy Ely MD Start: 06-26-2011 End: 12-31-2012 Ecg routine ecg w/least 12 lds w/i&r Jimmy Ely MD Start: 06-26-2011 End: 12-31-2012 Follow Up Appt 6 months Jimmy Ely MD Start: 06-26-2011 End: 06-28-2011 Lipid 1996 panel - Serum or Plasma Jimmy Ely MD Start: 04-01-2011 End: 12-31-2012 INR in Platelet poor plasma by Coagulation assay Jimmy Ely MD Plan of Treatment Date Care Activity Detail Author Start: 11-10-2031 Tetanus vaccination TETANUS [facility] Start: 05-23-2024 Screening for malignant neoplasm of colon COLORECTAL CANCER SCREENING DISCUSSION [facility] Start: 12-25-2023 End: 12-25-2023 Patient encounter procedure 12/25/2023 1:30 PM EDT Office Visit [facility] [address] [place] [address] Paul Quevedo MD [facility] [place] [address] [facility] Start: 10-02-2023 End: 10-02-2023 Patient encounter procedure 10/02/2023 10:30 AM EDT Office [facility] [address] [address] Jimmy Ely MD [address] [place] [id number] [facility] Start: 07-29-2023 End: 07-29-2023 Patient encounter procedure 07/29/2023 10:00 AM EDT Appointment [facility] [address] [address] Jimmy Ely MD [address] [place] [id number] [facility] Start: 01-10-2023 COVID-19 VACCINE ( season) COVID-19 VACCINE () [facility] Start: 01-19-2018 End: 01-19-2018 Appointment Appointment [facility] [employer] Work Phone: Start: 04-09-2017 End: 04-09-2017 Follow Up Appt 9 months Follow Up Appt 9 months [facility] Work Phone: Start: 04-09-2017 End: 04-09-2017 PFM PFM [facility] Work Phone: Start: 04-09-2017 End: 04-09-2017 Appointment Appointment [facility] Work Phone: Start: 01-20-2017 End: 07-25-2016 *Hepatic Function Panel *Hepatic Function Panel [employer] Work Phone: Start: 01-20-2017 End: 07-25-2016 Lipid panel [AGGREGATE] *Lipid Profile CC PCP [facility] Work Phone: Start: 07-18-2016 End: 07-18-2016 Ecg routine ecg w/least 12 lds w/i&r EKG (In office) [facility] Work Phone: Start: 07-18-2016 End: 07-18-2016 Follow Up Appt 6 months Follow Up Appt 6 months [facility] Work Phone: Start: 07-18-2016 End: 07-18-2016 Follow Up Appt Other Follow Up Appt Other [facility] Work Phone: Start: 07-18-2016 End: 07-18-2016 PFM PFM [facility] Work Phone: Start: 07-05-2016 End: 07-25-2016 *Hepatic Function Panel *Hepatic Function Panel [facility] Work Phone: Start: 07-05-2016 End: 07-25-2016 Lipid panel [AGGREGATE] *Lipid Profile CC PCP [facility] Work Phone: Start: 2016 Abdominal aortic aneurysm screening ABDOMINAL AORTIC ANEURYSM HIGH RISK SCREEN [facility] Start: 01-05-2016 End: 01-05-2016 *Hepatic Function Panel *Hepatic Function Panel [facility] Work Phone: Start: 01-05-2016 End: 07-12-2016 Follow Up Appt 6 months Follow Up Appt 6 months [facility] Work Phone: Start: 01-05-2016 End: 01-05-2016 Lipid panel [AGGREGATE] *Lipid Profile CC PCP [facility] Work Phone: Start: 01-05-2016 End: 07-12-2016 MMM MMM [facility] Work Phone: Start: 07-17-2015 End: 07-18-2015 *BMP *BMP [facility] Work Phone: Start: 07-17-2015 End: 07-18-2015 *Hepatic Function Panel *Hepatic Function Panel [facility] Work Phone: Start: 07-17-2015 End: 07-17-2015 Follow Up Appt 6 months Follow Up Appt 6 months [facility] [facility] Work Phone: Start: 07-17-2015 End: 07-18-2015 Lipid panel [AGGREGATE] *Lipid Profile CC PCP [facility] Work Phone: Start: 07-17-2015 End: 07-17-2015 PFM PFM [facility] [facility] Work Phone: Start: 01-06-2015 End: 07-17-2015 *Hepatic Function Panel *Hepatic Function Panel [facility] Work Phone: Start: 01-06-2015 End: 01-06-2015 Ecg routine ecg w/least 12 lds w/i&r EKG (In office) [facility] [facility] Work Phone: Start: 01-06-2015 End: 01-06-2015 Follow Up Appt 6 months Follow Up Appt 6 months [facility] Work Phone: Start: 01-06-2015 End: 07-17-2015 Lipid panel [AGGREGATE] *Lipid Profile CC PCP [facility] [facility] Work Phone: Start: 01-06-2015 End: 01-06-2015 MMM MMM [facility] [facility] Work Phone: Start: 08-18-2014 End: 01-02-2015 *Hepatic Function Panel *Hepatic Function Panel [facility] Work Phone: Start: 08-18-2014 End: 01-02-2015 Lipid panel [AGGREGATE] *Lipid Profile CC PCP [facility] Work Phone: Start: 03-02-2014 End: 03-02-2014 Ecg routine ecg w/least 12 lds w/i&r EKG (In office) [facility] [facility] Work Phone: Start: 03-02-2014 End: 03-02-2014 Follow Up Appt 6 months Follow Up Appt 6 months [facility] Work Phone: Start: 03-02-2014 End: 03-02-2014 Follow Up Appt Other Follow Up Appt Other [facility] Work Phone: Start: 03-02-2014 End: 03-02-2014 PFM PFM [facility] Work Phone: Start: 02-09-2014 End: 02-17-2014 *Hepatic Function Panel *Hepatic Function Panel [facility] Work Phone: Start: 02-09-2014 End: 02-17-2014 Lipid panel [AGGREGATE] *Lipid Profile CC PCP [facility] Work Phone: Start: 08-30-2013 End: 02-17-2014 *Hepatic Function Panel *Hepatic Function Panel [facility] Work Phone: Start: 08-30-2013 End: 02-17-2014 Ecg routine ecg w/least 12 lds w/i&r EKG (In office) [facility] Work Phone: Start: 08-30-2013 End: 02-18-2014 Follow Up Appt 6 months Follow Up Appt 6 months [facility] Work Phone: Start: 08-30-2013 End: 02-17-2014 Lipid panel [AGGREGATE] *Lipid Profile CC PCP [facility] Work Phone: Start: 08-30-2013 End: 02-18-2014 MMM MMM [facility] Work Phone: Start: 07-10-2013 End: 08-17-2013 *Hepatic Function Panel *Hepatic Function Panel [facility] Work Phone: Start: 07-10-2013 End: 08-17-2013 Lipid panel [AGGREGATE] *Lipid Profile CC PCP [facility] Work Phone: Start: 02-25-2013 Natriuretic peptide BNTP (93494) [facility] Work Phone: Start: 02-12-2013 Patient Education Cough: cough [facility] Work Phone: Start: 01-12-2013 End: 01-12-2013 *Hepatic Function Panel *Hepatic Function Panel [facility] Work Phone: Start: 01-12-2013 End: 01-12-2013 Follow Up Appt 6 months Follow Up Appt 6 months [facility] Work Phone: Start: 01-12-2013 End: 01-12-2013 PFM PFM [facility] Work Phone: Start: 07-13-2012 End: 12-31-2012 Ecg routine ecg w/least 12 lds w/i&r EKG (In office) [facility] Work Phone: Start: 07-13-2012 End: 12-31-2012 Follow Up Appt 6 months Follow Up Appt 6 months [facility] Work Phone: Start: 07-13-2012 End: 12-31-2012 MMM MMM [facility] Work Phone: Start: 12-30-2011 End: 12-31-2012 *Hepatic Function Panel *Hepatic Function Panel [facility] Work Phone: Start: 12-30-2011 End: 12-31-2012 Lipid panel [AGGREGATE] *Lipid Profile [facility] Work Phone: Start: 12-27-2011 End: 12-27-2011 Ecg routine ecg w/least 12 lds w/i&r EKG (In office) [facility] Work Phone: Start: 12-27-2011 End: 12-31-2012 Follow Up Appt 6 months Follow Up Appt 6 months [facility] Work Phone: Start: 06-26-2011 End: 06-28-2011 *Hepatic Function Panel *Hepatic Function Panel [facility] Work Phone: Start: 06-26-2011 End: 12-31-2012 Ecg routine ecg w/least 12 lds w/i&r EKG (In office) [facility] Work Phone: Start: 06-26-2011 End: 12-31-2012 Follow Up Appt 6 months Follow Up Appt 6 months [facility] Work Phone: Start: 06-26-2011 End: 06-28-2011 Lipid panel [AGGREGATE] *Lipid Profile [facility] Work Phone: Start: 04-01-2011 End: 12-31-2012 INR Coag RelTime (PPP) *PT/INR [facility] Work Phone: Start: 05-10-2010 Patient Education Sore throat: diagnosis and treatment [facility] Work Phone: Start: 05-10-2010 Provider Instructions for Treatment *Antibiotic Usage Education - Male [facility] Work Phone: Start: 05-10-2010 Cul bact xcpt urine blood/stool aerobic isol LEONARDO CULTURE-OTHER (85904) [facility] Work Phone: Start: 06-23-2007 Patient Education Sore throat: diagnosis and treatment [facility] Work Phone: Start: 06-23-2007 Provider Instructions for Treatment [facility] Work Phone: Start: 06-23-2007 Cul bact xcpt urine blood/stool aerobic isol LEONARDO CULTURE-OTHER (12399) [facility] Work Phone: Start: 2001 Prostate specific antigen measurement PROSTATE CANCER SCREENING DISCUSSION [facility] Start: 1991 Lipid panel LIPID SCREENING [facility] Start: 1950 Hepatitis C screening HEPATITIS C VIRUS SCREENING [facility] Ecg routine ecg w/le ast 12 lds w/i&r SC ELECTROCARDIOGRAM, COMPLETE SC - OFFICE PERFORMED Routine PAF (paroxysmal atrial fibrillation) Essential hypertension Hyperlipidemia, unspecified hyperlipidemia type FATIMAH (obstructive sleep apnea) Ordered: 06/24/2023 [facility] Payers Date Payer Category Payer Medicare MEDICARE MEDICAR E A AND B [id number] 2023-Present [address] [place] [address] [id number] 2023 Medicare [id number] 2019 Unknown 2019 Unknown [id number] 1950 Unknown [id number] Social History Date Type Detail Facility Start: 06-24-2023 Alcohol Use Alcohol Use [facility] Work Phone: Evaluation + Plan note 06-24-2023 Assessment & Plan Note - Jimmy Ely MD - 06/24/2023 8:22 PM EST Note Date & Type Note Facility 06-24-2023 Evaluation + Plan note Associated Problem(s): FATIMAH (obstructive sleep apnea) He has a history of obstructive sleep apnea. He will continue his therapy for such as that is beneficial from his cardiovascular standpoint. [facility] Evaluation + Plan note 06-24-2023 Assessment & Plan Note - Jimmy Ely MD - 06/24/2023 8:22 PM EST Note Date & Type Note Facility 06-24-2023 Evaluation + Plan note Associated Problem(s): Hyperlipidemia He will continue his pravastatin at 40 mg p.o. q.day. [facility] Evaluation + Plan note 06-24-2023 Assessment & Plan Note - Jimmy Ely MD - 06/24/2023 8:22 PM EST Note Date & Type Note Facility 06-24-2023 Evaluation + Plan note Associated Problem(s): Essential hypertension He will continue his valsartan 320 mg p.o. q.day. [facility] Note 06-24-2023 Assessment & Plan Note - Jimmy Ely MD - 06/24/2023 8:22 PM ESTAssessment & Plan Note - Jimmy Ely MD - 06/24/2023 8:22 PM EST Note Date & Type Note Facility 06-24-2023 Miscellaneous Notes Associated Problem(s): FATIMAH (obstructive sleep apnea) He has a history of obstructive sleep apnea. He will continue his therapy for such as that is beneficial from his cardiovascular standpoint. Associated Problem(s): Hyperlipidemia He will continue his pravastatin at 40 mg p.o. q.day. Associated Problem(s): Essential hypertension He will continue his valsartan 320 mg p.o. q.day. Associated Problem(s): PAF (paroxysmal atrial fibrillation) At the present time he states he is hesitant to stop his anticoagulant therapy based upon his concerns the possibility of recurrent atrial fibrillation and thromboembolic event with CVA. He states he will be changing back to apixaban at 5 mg p.o. b.i.d.. He does know that if he needs a bone marrow aspirate and biopsy he will need to interrupt his anticoagulant therapy for that procedure. He also knows if there is a diagnosis of underlying hemorrhagic evaluation he will also need to place his anticoagulant therapy on hold. In the interim it was felt reasonable that, based upon his ongoing anemia related issues and difficulty maintaining anticoagulation status, that he be referred to electrophysiology for consideration for left atrial appendage occluder device. If he were a candidate for such and it could be completed successfully then he would be able to be without his anticoagulant therapy. In preparation for such a referral he will also be asked to have a transthoracic echocardiogram performed. This will be to reassess his left ventricular size, wall motion, and systolic function as well as his left atrial size. documented in this encounter [facility] Evaluation + Plan note 06-24-2023 Assessment & Plan Note - Jimmy Ely MD - 06/24/2023 8:21 PM EST Note Date & Type Note Facility 06-24-2023 Evaluation + Plan note Associated Problem(s): PAF (paroxysmal atrial fibrillation) At the present time he states he is hesitant to stop his anticoagulant therapy based upon his concerns the possibility of recurrent atrial fibrillation and thromboembolic event with CVA. He states he will be changing back to apixaban at 5 mg p.o. b.i.d.. He does know that if he needs a bone marrow aspirate and biopsy he will need to interrupt his anticoagulant therapy for that procedure. He also knows if there is a diagnosis of underlying hemorrhagic evaluation he will also need to place his anticoagulant therapy on hold. In the interim it was felt reasonable that, based upon his ongoing anemia related issues and difficulty maintaining anticoagulation status, that he be referred to electrophysiology for consideration for left atrial appendage occluder device. If he were a candidate for such and it could be completed successfully then he would be able to be without his anticoagulant therapy. In preparation for such a referral he will also be asked to have a transthoracic echocardiogram performed. This will be to reassess his left ventricular size, wall motion, and systolic function as well as his left atrial size. [facility] History of Present illness Narrative 06-24-2023 Jimmy Ely MD - 06/24/2023 2:30 PM Gabriella Plascencia RN - 06/24/2023 2:30 PM EST Note Date & Type Note Facility 06-24-2023 History of Present illness Narrative Images from the original note were not included. Referring provider: Self, Self Primary care provider: ANETTE Huynh (General) Dear Ms. Parekh, I had the pleasure of seeing your patient, Wm Santacruz, at the [facility] on 06/24/2023. I have reviewed pertinent outside medical records available at this time regarding this patient. As you recall, you referred this 73 y.o. male to our attention for paroxysmal atrial fibrillation superimposed upon hypertension and hyperlipidemia. Chief Complaint Patient presents with Establish Care Transfer or care from [place]. Has questions about what could be done other than blood thinner. Has been having trouble with anemia since late 2022. HPI: This is a 73-year-old white male who presents today for a new [facility] evaluation for paroxysmal atrial fibrillation superimposed upon a history of hypertension and hyperlipidemia. He is accompanied by his spouse. He has been previously evaluated cared for by [facility] in [place], [place]. He has undergone various cardiovascular studies in the past. His previous cardiovascular records /studies are unavailable for review at this time. He has been treated medically for his paroxysmal atrial fibrillation in the past. He had been on medical therapy with diltiazem, flecainide, and apixaban. He states that he had been doing well. He recalls that in the summer of 2022 he had a recurrent event of his atrial fibrillation. This led to the addition of anticoagulant therapy with apixaban. He notes that with respect to his atrial fibrillation he still has episodes, based upon his symptoms, but he believes he goes in and out of atrial fibrillation. He does not believe he has had any prolonged events. He states that he has not had symptoms of ongoing angina pectoris. There has been no episodes of obvious acute CHF or pulmonary edema. Notes that on 04/05/2023 after watching the [facility] [email or web address] game, he did not feel well. There were concerns of near-syncope. He states he presented to [facility] for further evaluation. It appears that his symptoms were thought to be related to the development of anemia with a hemoglobin of 6.7. He remained in the hospital and required PRBC transfusions. After that he states he felt back to his normal self. During that time he was evaluated by Cardiology. He states the decision was made to place his diltiazem therapy, flecainide therapy, and anticoagulant therapy on hold. He underwent evaluation by Gastroenterology at that time. Based upon his description he may have had an underlying peptic ulcer with associated hemorrhage. He states it was cauterized . However, since that time, and restarting his anticoagulant therapy, he has had recurrent episodes of anemia. He has had recurrent emergency department visits. He has had recurrent PRBC transfusions. To the best of his knowledge there has been no determination of any recurrent hemorrhagic issues. There has been no concern from Hematology as to whether or not his anemia is related to some form of dysfunction related to his bone marrow. He states he was asked to stop his anticoagulant therapy. However, after talking to other members of his family that are in the medical profession, and knowing his PAF and the risk of thromboembolic disease / CVA, he is elected to stay on anticoagulant therapy. He states he had been switched from apixaban to rivaroxaban. He questions that he has not done as well on rivaroxaban as he did on apixaban. He states he will be switching back to apixaban. He notes that hematology is considering doing a bone marrow aspirate and biopsy as part of his evaluation. He knows he may need to interrupt his anticoagulation for that. In the office today he had an ECG. He was noted to be in sinus rhythm with a ventricular rate of 62 beats per minute. There were no acute ECG changes. At the same time he states his blood pressures have been under reasonably good control on his current medical therapy. He has also had a history of hyperlipidemia. He has remained on his pravastatin therapy. Historical information was reviewed in the medical record. The following historical elements were reviewed by a provider in the specific [facility] sim[facility] and updated as appropriate: No Known Allergies Outpatient Encounter Medications as of 06/24/2023 Medication Sig Dispense Refill ELDERBERRY PO Take 2 capsules by mouth daily. Melatonin 5 MG Chew Tab Chew 2 tablets at bedtime. Multivitamin w/ minerals tablet Take 1 tablet by mouth daily. Pravastatin 40 MG tablet Take 1 tablet by mouth daily. valsartan 320 MG tablet Take 1 tablet by mouth daily. [DISCONTINUED] Xarelto 20 MG tablet Take 1 tablet by mouth daily with dinner. apixaban 5 MG tablet Take 1 tablet by mouth every 12 hours. No facility-administered encounter medications on file as of 06/24/2023. Past Medical History: Diagnosis Date Atrial fibrillation HTN (hypertension) Hypercholesteremia Sleep apnea Past Surgical History: Procedure Laterality Date HIP REPLACEMENT Bilateral Family History Problem Relation Age of Onset Coronary Artery Disease Father Myocardial Infarction Father Social History Socioeconomic History Marital status: Spouse name: Not on file Number of children: Not on file Years of education: Not on file Highest education level: Not on file Occupational History Not on file Tobacco Use Smoking status: Never Smokeless tobacco: Never Vaping Use Vaping status: Never Used Substance and Sexual Activity Alcohol use: Not Currently Comment: rare Drug use: Never Sexual activity: Not on file Other Topics Concern Not on file Social History Narrative Not on file Social Determinants of Health Financial Resource Strain: Not on file Food Insecurity: Not on file Transportation Needs: Not on file Physical Activity: Not on file Stress: Not on file Social Connections: Not on file Intimate Partner Violence: Not on file Housing Stability: Not on file Review of Systems Cardiovascular: Positive for palpitations. Negative for chest pain, claudication, cyanosis, dyspnea on exertion, irregular heartbeat, leg swelling, near-syncope, orthopnea, paroxysmal nocturnal dyspnea and syncope. On physcial exam today, the vital signs are as follows: BP 126/62 (BP Location: Left arm, BP Position: Sitting) Pulse 62 Ht 1.778 m (5' 10 ) Wt 104.3 kg (230 lb) BMI 33.00 kg/m Smoking Status Never Body mass index is 33 kg/m .. Physical Exam Vitals and nursing note reviewed. Exam conducted with a warehouse assistant present (Spouse.). Constitutional: Appearance: Normal appearance. HENT: Head: Normocephalic and atraumatic. Cardiovascular: Rate and Rhythm: Normal rate and regular rhythm. No extrasystoles are present. Chest Wall: PMI is not displaced. No thrill. Pulses: Carotid pulses are 2+ on the right side and 2+ on the left side. Radial pulses are 2+ on the right side and 2+ on the left side. Posterior tibial pulses are 2+ on the right side and 2+ on the left side. Heart sounds: S1 normal and S2 normal. No murmur heard. No friction rub. No gallop. Pulmonary: Effort: Pulmonary effort is normal. Breath sounds: Normal breath sounds. Abdominal: General: Bowel sounds are normal. Palpations: Abdomen is soft. Musculoskeletal: General: Normal range of motion. Cervical back: Normal range of motion and neck supple. Right lower leg: No edema. Left lower leg: No edema. Skin: General: Skin is warm and dry. Neurological: General: No focal deficit present. Mental Status: He is alert. Psychiatric: Mood and Affect: Mood normal. Relevant diagnostic data includes the following: I have independently reviewed the following reports and/or images/tracings: as noted below. Supplemental Information: ELECTROCARDIOGRAM 06/06/2023 In summary, Mr. Santacruz is managed today for the following issues: PAF (paroxysmal atrial fibrillation) At the present time he states he is hesitant to stop his anticoagulant therapy based upon his concerns the possibility of recurrent atrial fibrillation and thromboembolic event with CVA. He states he will be changing back to apixaban at 5 mg p.o. b.i.d.. He does know that if he needs a bone marrow aspirate and biopsy he will need to interrupt his anticoagulant therapy for that procedure. He also knows if there is a diagnosis of underlying hemorrhagic evaluation he will also need to place his anticoagulant therapy on hold. In the interim it was felt reasonable that, based upon his ongoing anemia related issues and difficulty maintaining anticoagulation status, that he be referred to electrophysiology for consideration for left atrial appendage occluder device. If he were a candidate for such and it could be completed successfully then he would be able to be without his anticoagulant therapy. In preparation for such a referral he will also be asked to have a transthoracic echocardiogram performed. This will be to reassess his left ventricular size, wall motion, and systolic function as well as his left atrial size. Essential hypertension He will continue his valsartan 320 mg p.o. q.day. Hyperlipidemia He will continue his pravastatin at 40 mg p.o. q.day. FATIMAH (obstructive sleep apnea) He has a history of obstructive sleep apnea. He will continue his therapy for such as that is beneficial from his cardiovascular standpoint. I have ordered the following: Orders Placed This Encounter AMB REFERRAL CARDIAC ELECTROPHYSIOLOGY ECHOCARDIOGRAM apixaban 5 MG tablet SC ECG, CLINIC PERFORMED The above was discussed and reviewed with the patient with his spouse present. They were both agreeable to this approach. We will plan on Return in about 3 months (around 09/22/2023).. If I can be of any further assistance, please do not hesitate to contact me. Sincerely, Jimmy Ely MD, [facility] Aircraft Quality Control Inspector - Clinical Division of Cardiovascular Medicine Department of Internal Medicine [facility] Please be aware that portions of this note may have been completed with a voice recognition software system. Despite efforts to edit the note mis-transcribed words may still be present. 12 Lead EKG performed per provider's order, per policy, and given to Dr. Ely for interpretation. Medical warehouse assistant offered to patient prior to sensitive procedure and patient declined documented in this encounter [facility] Evaluation note Note Date & Type Note Facility documented in this encounter [facility] Instructions Note Date & Type Note Facility [facility] Work Phone: Instructions Note Date & Type Note Facility [facility] Work Phone: Reason for referral (narrative) Consultation (Routine) - New Request Note Date & Type Note Facility Referral ID Status Reason Start Date Expiration Date V isits Requested Visits Authorized [id number] New Request 06/24/2023 07/18/2024 1 1 * Radiology (Routine) - New Request Specialty Diagnoses / Procedures Referred By Bryon t Referred To Contact Diagnoses PAF (paroxysmal atrial fibrillation) Essential hypertension Hyperlipidemia, unspecified hyperlipidemia type FATIMAH (obstructive sleep apnea) Procedures ECHOCARDIOGRAM SC ECHO HEART XTHORACIC,COM[place] [address] [place] [address] [place] [address] Referral ID Status Reason Start Date Expiration Date V isits Requested Visits Authorized [id number] New Request 06/24/2023 07/18/2024 1 1 [facility] Family History No Family History Records FoundUnknown Family Member Name Dates Details Father Comments:[place] at 49 yo Status:Active Mother Comments:lived to 88 healthy until then Status:Active Unknown Family Member Name Dates Details Father Comments:[place] at 49 yo Status:Active Mother Comments:lived to 88 healthy until then Status:Active Unknown Family Member Name Dates Details Father Comments:[place] at 49 yo Status:Active Mother Comments:lived to 88 healthy until then Status:Active Instructions Name Dates Details Patient Instructions Indication:Cough Start:25-Feb-2013 Instruction Type:Provider Instructions for Treatment Patient Instructions Indication:Influenza A (H1N1) Start:08-May-2012 Instruction Type:Provider Instructions for Treatment Summary Purpose Advance Directives No Advanced Directives Records FoundNo Advanced Directives Records Found Additional Source Comments (unrecognized sect ion and content) No Status Records FoundNo Status Records Found INFORMATION SOURCE (unrecogn ized section and content) DATE CREATED AUTHOR AUTHOR'S ORGANIZ ATION 06/26/2023 [facility] Reason for Visit (unrecogniz ed section and content) Specialty Diagnoses / Procedures Referred By Contact Referred To Contact Cardiovascular Disease / Cardiovascular Medicine Diagnoses Sched w/pt. Afib-saw Dr. Ely in [place] in 2021 Asked pt to fax in records Procedures NEW PATIENT Self, Self Jimmy Ely MD [address] [place] [address] Referral ID Status Reason Start Date Expiration Date V isits Requested Visits Authorized [id number] New Request 06/24/2023 07/18/2024 1 1 Care Teams (unrecognized sec tion and content) FOR RECORDS PERTAINING TO PATIENTS [...] BE BASED ON THE PRIMARY CLINICAL RECORDS. [employer] provides no warranty or guarantee of the accuracy or completeness of information in this document.
[2023-07-10 07:56] LABS: Absolute Lymphocyte Count 2.34 X10^3/uL (0.83-4.51); Absolute Neutrophil Count 2.6 X10^3/uL (2.0-7.7); Basophil# 0.01 X10^3/uL; Basophil% 0.2 % (0-1); Eosinophil# 0.29 X10^3/uL; Eosinophils% 5.1 % (0-5); Hematocrit 25.9 % (40-54); Hemoglobin 8.5 g/dL (13.0-16.5); Lymphocyte # 2.34 X10^3/ul (0.83-4.51); Lymphocyte % 41.5 % (19-41); Mean Corp Hgb Conc 32.8 g/dL (32-36); Mean Corpuscular Hgb 35.4 pg (27.0-32.0); Mean Corpuscular Volume 107.9 fL (80-94); Monocyte# 0.19 X10^3/uL; Monocyte% 3.4 % (0-10); NRBC Flagged by Analyzer 0 % (0-5); Neutrophil # 2.63 X10^3/uL (2.7-7.7); Neutrophil % 46.6 % (47-70); POSITIVE MORPHOLOGY YES; Platelet Count 172 K/mm3 (150-450); RBC Distribution Width SD 83.3 fl (35.1-43.9); White Blood Count 5.6 K/mm3 (4.4-11.0)
[2023-07-10 08:22] LABS: Differential Indicated SCAN CRITERIA MET
[2023-07-10 09:01] LABS: International Normalized Ratio 1.1; Partial Thromboplast Time 28.9 Seconds (24.1-36.2); Prothrombin Time (Protime)PT. 13.7 SECONDS (11.7-14.9)
[2023-07-10] MEDS: 0.9% Normal Saline (250mL Bag) 250 ML 15 ML IV (09:14)
[2023-07-10] MEDS: Midazolam 2 MG/2 ML Syringe IV (09:16)
[2023-07-10] MEDS: fentaNYL 100 MCG/2 ML Ampul IV (09:17)
[2023-07-10] MEDS: Lidocaine 2% (20 ml mdv) 20 ML Vial INFILT (09:25)
--- NOTE | 2023-07-10 09:57 | PRO.PCM_ITS ---
Procedure Report Date of Procedure: 07/10/23 Assessment & Plan Assessment/Plan (1) Anemia: QUALIFIERS: Anemia type: unspecified type Qualified Code(s): D64.9 - Anemia, unspecified PLAN: PROCEDURE: CT guided bone marrow biopsy and aspiration of the right iliac bone ORDERING PROVIDER: Dr. Sena INDICATION: Male, 73 years old. Anemia. PROVIDER: Leonie De Leon SALES MANAGEMENT INTERN-[facility] RADIATION DOSAGE (If Supplied By Facility): CTDIvol = 21.10 mGy, DLP = 421.34 mGycm. Individualized dose optimization techniques were utilized. CONSENT: The risks, benefits, and alternatives to the procedure were explained to the patient. The specific risk of hemorrhage requiring further treatment or intervention was detailed and accepted. Follow-up instructions were discussed with the patient and as well. Written informed consent was obtained. PRE-PROCEDURE SEDATION ASSESSMENT: Current history and physical dictated by referring physician and reviewed. No clinical changes since date of exam. Patient has an ASA Class of 2. PROCEDURAL SEDATION PROTOCOL: The Drugs used were: 2 mg Versed, IV, and 50 mcg Fentanyl, IV. The sedation time was: 22 minutes, starting at 9:16 AM and terminated at 9:38 AM. The procedural sedation protocol was independently monitored by the department nurse. TECHNIQUE The patient was brought into the CT suite and placed in the prone position. An appropriate entry site was identified. The overlying skin was prepped and draped in the usual sterile fashion. 2% lidocaine was administered subcutane ously for local anesthesia. Under CT guidance, a bone marrow biopsy and bone marrow aspirate were performed of the right iliac bone using an 11-gauge bone marrow biopsy kit. Hematology staff was present to prepare the specimen slides and transport the specimen to the laboratory for analysis. Hemostasis was obtained, and a sterile occlusive dressing was applied. The patient tolerated the procedure well without immediate complications. IMPRESSION: Successful CT guided bone marrow biopsy and aspiration of the right iliac bone as described. Procedural Sedation protocol utilized with independent monitoring by the department nurse. Procedures Radiology Radiology CT Procedures: 09612 Biopsy Bone Marrow
[2023-07-10 10:28] LABS: Anisocytosis 2+; Differential Comment SCANNED; Macrocytosis 2+
[2023-07-18 09:49] LABS: Miscellaneous Lab Procedure SEE PATH REPORT
[2023-07-18 09:50] LABS: Miscellaneous Lab Procedure 2 SEE PATH REPORT; Miscellaneous Lab Procedure 3 SEE PATH REPORT
== END | disposition home or self-care (01) ==
PROVIDERS: PCP Nurse Practitioner Family; Referring Provider Internal Medicine Hematology & Oncology; Visit Provider Internal Medicine Hematology & Oncology
DX: Z01.812 Encounter for preprocedural laboratory examination (principal); D46.9 Myelodysplastic syndrome, unspecified; D53.9 Nutritional anemia, unspecified; Z98.890 Other specified postprocedural states; R06.02 Shortness of breath
CPT/HCPCS: 38222; 36415; 77012; 85025; 85610; 85730; 88305; 88311; 88313; 88341; 88342; 99156; J7050

== ENCOUNTER 2023-08-12 07:49 | Outpatient (CLI) | payer MEDICARE, BC, SELFPAY ==
[2023-08-12 08:26] VITALS: BP 105/39; PULSE 54; RESP 16; TEMP 36.6; O2SAT 99; BMI 32.5
[2023-08-12 08:53] VITALS: BP 102/39; PULSE 56; RESP 16; TEMP 36.3
[2023-08-12 09:57] VITALS: BP 118/49; PULSE 68; RESP 16; TEMP 36.6; O2SAT 97
[2023-08-12 10:48] VITALS: BP 108/57; PULSE 52; RESP 16
[2023-08-12 11:48] VITALS: BP 120/59; PULSE 59; RESP 16; TEMP 36.7; O2SAT 100
== END 2023-08-12 07:50 | disposition home or self-care (01) ==
PROVIDERS: PCP Nurse Practitioner Family
DX: D64.9 Anemia, unspecified (principal)
CPT/HCPCS: 36430; 86644; 86850; 86900; 86901; 86920; 86922; J7040; P9040; A4216

== ENCOUNTER → 2023-08-21 | Outpatient (CLI) | payer MEDICARE, BC, SELFPAY ==
[2023-08-21 08:52] LABS: Hematocrit 23.4 % (40-54); Hemoglobin 7.5 g/dL (13.0-16.5); Mean Corp Hgb Conc 32.1 g/dL (32-36); Mean Corpuscular Volume 103.1 fL (80-94); Mean Platelet Vol. 11.8 fl (6.2-12.0); POSITIVE COUNT YES; POSITIVE MORPHOLOGY YES; Platelet Count 159 K/mm3 (150-450); RBC Distribution Width CV 22.3 % (11.6-14.6); RBC Distribution Width SD 80.1 fl (35.1-43.9); Red Blood Count 2.27 M/mm3 (4.6-6.2); White Blood Count 7.7 K/mm3 (4.4-11.0)
[2023-08-21 08:54] LABS: Differential Indicated MANUAL DIFF
[2023-08-21 09:17] LABS: ALB/GLOB Ratio 1.2 RATIO (0.9-2.4); AST(SGOT) 27 U/L (15-37); Alanine Aminotransfer ALT/SGPT 34 U/L (16-61); Albumin, Serum 3.8 g/dL (3.2-5.0); Alkaline Phosphatase 66 U/L (45-117); Anion Gap 2 (5-15); BUN 20 mg/dL (7-18); BUN/Creat Ratio 18.5 RATIO (10-20); Calcium,Total 8.9 mg/dL (8.5-10.1); Chloride 110 mmol/L (98-107); Creatinine, Serum 1.08 mg/dL (0.70-1.30); EST Glomerular Filtration Rate 71 mL/min (>60); Est Glom Filt Rate - Afr Amer 86 mL/min (>60); Globulin 3.3 g/dL (2.2-4.2); Glucose 131 mg/dL (74-106); Potassium 4.6 mmol/L (3.5-5.1); Protein, Total 7.1 g/dL (6.4-8.2); Sodium Level 138 mmol/L (136-145)
[2023-08-21 09:18] LABS: Eosinophil 6 % (0-5); Lymphocyte 35 % (19-41); Metamyelocyte 2 % (0-1); Myelocyte 1 % (0-0); Neutrophil-Band 5 % (0-5); Neutrophil-Segmented 51 % (47-70); Total Cells Counted 100 (MANUAL DIFF)
[2023-08-21 09:19] LABS: Anisocytosis 2+; Platelet Estimate ADEQUATE (ADEQ); Polychromasia 1+
[2023-08-21 09:20] LABS: Absolute Neutrophil Count 4.3 X10^3/uL (2.0-7.7); Neutrophil # 4.31 X10^3/uL (2.7-7.7)
[2023-08-21 16:45] LABS: Xtra CC BBK (Onc ONLY) EXTRA TUBE; Xtra Tube EP Lab EXTRA TUBE
[2023-08-22 08:10] VITALS: BP 121/54; PULSE 56; RESP 16; TEMP 36.3; O2SAT 98; BMI 32.5
[2023-08-22 09:05] VITALS: BP 122/52; PULSE 55; RESP 16; TEMP 36.5; O2SAT 99
[2023-08-22 10:05] VITALS: BP 117/55; PULSE 52; RESP 16; TEMP 36.7
[2023-08-25 09:51] LABS: Pathologist Review Reviewed
== END | disposition home or self-care (01) ==
PROVIDERS: Nurse Practitioner; PCP Nurse Practitioner Family; Referring Provider Clinical Nurse Specialist Acute Care; Visit Provider Clinical Nurse Specialist Acute Care
DX: D46.9 Myelodysplastic syndrome, unspecified (principal)
CPT/HCPCS: 36415; 36430; 80053; 85025; 86644; 86850; 86900; 86901; 86920; J7040; P9040; A4216

== ENCOUNTER 2023-08-27 08:25 | Outpatient (CLI) | payer MEDICARE, BC, SELFPAY ==
[2023-08-27 08:44] VITALS: BP 131/61; PULSE 62; RESP 16; TEMP 36.1; O2SAT 98
[2023-08-27 09:44] VITALS: BP 134/75; PULSE 74; RESP 16; TEMP 36.4; O2SAT 99
[2023-08-27 10:41] VITALS: BP 146/66; PULSE 70; RESP 16; TEMP 36.2
[2023-08-27 11:41] VITALS: BP 135/78; PULSE 78; RESP 16; TEMP 36.3
== END 2023-08-27 08:26 | disposition home or self-care (01) ==
LOC: MEDOUTP 08:25
PROVIDERS: PCP Nurse Practitioner Family; Referring Provider Clinical Nurse Specialist Acute Care; Visit Provider Clinical Nurse Specialist Acute Care
DX: D46.9 Myelodysplastic syndrome, unspecified (principal)
CPT/HCPCS: 36430; 86850; 86900; 86901; 86920; 86922; J7040; P9016; A4216

== ENCOUNTER 2023-09-09 10:49 | Day surgery (SDC) | payer MEDICARE, BC, SELFPAY ==
[2023-09-09 11:12] VITALS: BP 128/88; PULSE 71; RESP 16; TEMP 36.5; O2SAT 99; BMI 33.4
[2023-09-09] MEDS: Lactated Ringers 1,000 ML 15 ML IV (11:16)
--- NOTE | 2023-09-09 12:13 | HP.PCM_ITS ---
History and Physical Date of Admission: 09/09/23 Intake Vital Signs 08/25/2409:04 08/27/2407:44 08/31/2413:57 Height 5 ft 10 in 5 ft 10 in BP 137/92 H Blood Pressure Location Rt brachial Position Sitting Respiration 17 Pulse 98 Pulse Source Monitor Pulse Oximetry (%) 97 Oxygen Delivery Method room air Intake Visit Reasons: PORT PLACEMENT Chief Complaint: port placement Is patient in pain?: No Allergies No Known Allergies Allergy (Verified 09/01/23 14:58) Medications pravastatin 40 mg tablet 40 mg PO DAILY #90 tabs 03/17/23 [Rx Confirmed 09/01/23] apixaban 5 mg tablet (Eliquis) 5 mg PO BID 07/10/23 [History Confirmed 09/01/23] diltiazem HCl 180 mg capsule,extended release 24 hr 180 mg PO Q24H 08/12/23 [History Confirmed 09/01/23] lansoprazole 30 mg capsule,delayed release (Prevacid) 30 mg PO DAILY 08/12/23 [History Confirmed 09/01/23] acyclovir 800 mg tablet 800 mg PO DAILY 08/26/23 [History Confirmed 09/01/23] carvedilol 3.125 mg tablet 3.125 mg PO BID 08/26/23 [History Confirmed 09/01/23] elderberry fruit 350 mg capsule mg PO 08/26/23 [History Confirmed 09/01/23] levofloxacin 250 mg tablet 250 mg PO DAILY 08/26/23 [History Confirmed 09/01/23] ondansetron HCl 8 mg tablet 8 mg PO Q8H PRN nausea and vomiting #30 tabs 08/26/23 [Rx Confirmed 09/01/23] PFS Medical History (Updated 09/01/23 @ 14:57 by Jesi Cheung) Abnormal stress test Arthritis Cardiology follow-up encounter Chronic GI bleeding Elevated ferritin level Essential hypertension High cholesterol History of atrial fibrillation History of cardioversion History of DVT (deep vein thrombosis) History of echocardiogram History of GI bleed History of left heart catheterization (LHC) (~04/23/19) History of pulmonary embolism History of stress test Hyperlipemia Hypertension Myelodysplastic syndrome Non-smoker FATIMAH (obstructive sleep apnea) Paroxysmal atrial fibrillation Persistent atrial fibrillation Premature ventricular contraction Sleep apnea Wears contact lenses Wears glasses Surgical History History of cardiac catheterization History of esophagogastroduodenoscopy (EGD) History of left hip replacement History of right hip replacement Family History Father Myocardial infarction, Onset Age: 48 HypertensionSister Atrial fibrillation Social History current occupational status: retired Smoking Status: Never smoker alcohol intake: current details: occasional substance use type: does not use HPI HPI HPI: Patient is a 73-year-old male here for port placement for myelodysplastic syndrome. Patient has weekly transfusions and will need treatment and is here for vascular access. ROS General General: No weight change, appetite, fatigue, colon cancer, breast cancer or weakness HEENT HEENT: No difficulty swallowing, eye injury, eye surgery, swollen glands or hoarseness Endo Endocrine: No thyroid disease, diabetes mellitus, thyroid cancer, Hair loss, heat intolerance or cold intolerance Skin Skin: No rash or changing moles Musc Musculoskeletal: Yes arthritis; No back problems, rheumatoid arthritis, gout or joint pain Cardio Cardiovascular: Yes atrial fibrillation and high blood pressure; No murmur, pacemaker, heart disease, heart attack, heart stent, palpitations, sh ortness of breat with exertion or chest pain Psych Psychiatric: No depression, anxiety or hearing voices Resp Respiratory: No shortness of breath, Yes sleep apnea, No cough, No COPD, No asthma, No emphysema and No wheezing Gastro Gastrointestinal: No abdominal pain, No nausea or vomiting, No diarrhea, No constipation, No blood in stool, No acid reflux, No hemorrhoids, No ulcers, No gallbladder problem and No black,tarry stools [place] Hematologic: Yes blood thinners, Yes blood disorders, No bleeding, Yes anemia and No blood clots Neuro Neurologic: No system reviewed and no additional complaints, except as documented, No as per HPI, No abnormal gait, No abnormal hearing, No abnormal movements, No abnormal speech, No behavioral changes, No burning sensations, No confusion, No convulsions, No disequilibrium, No dizziness, No localized weakness, No frequent falls, No headache(s), No lack of coordination, No loss of vision, No memory loss, No numbness, No other visual disturbances, No radicular pain, No restless legs, No sensory deficit, No syncope, No tingling, No t remor(s), No weakness and No other Exam Const General: cooperative Orientation: alert and oriented x3 HENMT Head: normal to inspection Neck Neck: normal visual inspection and full ROM Chest Chest palpation & inspection: normal inspection of the chest Resp Effort & Inspection: normal respiratory effort Auscultation: clear to auscultation bilaterally Cardio Rate: regular rate Rhythm: regular rhythm GI Inspection: non-distended Palpation: soft and nontender Skin General: no rashes or lesions noted Neuro General: patient alert and patient oriented x3 Extrem General: full ROM Psych Appearance: grossly normal Mental Status: mental status grossly normal Assessment and Plan Assessment and Plan (1) Encounter for insertion of venous access port: Status: Acute (2) Myelodysplastic syndrome: Status: Chronic Plan Patient reports port for chemotherapy and for transfusions. I discussed right chest port with him in detail. I discussed the risks including but limited to bleeding, infection, line infection or DVT. Patient understands all the risks and will hold his Eliquis for 2 days prior to surgery. Obie Becker MD Pager: [facility] [address] [place] [address], [address] [place] [address] Office: I have examined the patient and the H&P has been reviewed. There are no clinical changes since date of exam.
[2023-09-09] MEDS: Cefazolin 2 GM in 0.9% Normal Saline (100mL Bag) 100 ML IV (12:54)
[2023-09-09] MEDS: Bupivacaine Mpf 0.5% 30 ML VIAL (13:19)
[2023-09-09] MEDS: Lidocaine 1%/Epi 1:200 (30ml) 30 ML AMPUL (13:19)
--- NOTE | 2023-09-09 13:29 | PCM.OPRPT ---
Report of Operation Date of Procedure: 09/09/23 Pre-Operative Diagnosis: Need for vascular access Post-Operative Diagnosis: Same Surgery/Procedure Performed:: Ultrasound and fluoroscopy guided right chest port placement utilizing right IJ Type of Anesthesia: Local MAC Estimated Blood Loss (mL): 10 Description of Procedure: After obtaining informed consent patient was brought back to the operating room MAC anesthesia was induced and the right chest and neck were prepped in normal sterile fashion. Ultrasound was used to evaluate both IJs and the right IJ was selected. Next, using a needle, the right IJ was accessed and a guidewire was passed on into the superior vena cava under fluoroscopy guidance. A small incision was made over the puncture site and the dilator introducer was placed over the guidewire. Next this was capped and the pocket was made for the port. 1% lidocaine with epinephrine was injected in the proposed port site. An incision was made with scalpel. Electrocautery was used to make a pocket under the skin and subcutaneous tissue. Hemostasis was obtained. Next, the catheter was tunneled up to the neck incision site and placed through the introducer. The peel-away introducer was removed and the position of the catheter was confirmed on fluoroscopy. Next, the catheter was trimmed and attached to the port with the locking device. Interrupted 2-0 Vicryl sutures were used to anchor the port to the chest wall and then the port was placed inside the pocket. The pocket was then flushed with saline and the port irrigated with saline. There was good blood return and the port flushed easily. Next, heparin was injected into the port. The skin was closed with subcutaneous interrupted 3-0 Vicryl sutures. A single 3-0 Vicryl sutures placed under the skin at the neck incision site. Steri-Strips were placed as well as op sites. Patient tolerated procedure well, was taken to PACU in stable condition. Chest x-ray will be obtained. Admit VTE Documentation VTE Mechan Device Prophylaxis: SCD's
[2023-09-09 13:31] VITALS: BP 107/65; BP 128/88; PULSE 77; RESP 16; TEMP 36.7; O2SAT 98
[2023-09-09 13:35] VITALS: BP 111/73; BP 128/88; PULSE 79; RESP 16; O2SAT 98
[2023-09-09 13:40] VITALS: BP 128/88; BP 130/96; PULSE 78; RESP 16; O2SAT 98
--- NOTE | 2023-09-09 13:40 | RAD_ITS ---
STUDY: X-RAY CHEST REASON FOR EXAM: Male, 73 years old. Line placement -- in pacu TECHNIQUE: Single AP portable view of the chest. COMPARISON: Comparison is made with prior study dated April 05, 2023. FINDINGS: A right-sided aba catheter has been placed with the tip at the junction of the superior vena cava and right atrium. Hyperinflation. The lungs are clear. There is no demonstrated pleural abnormality. Normal size heart. Normal mediastinum and alfredo. Normal visualized pulmonary arteries. Normal visualized aortic arch and descending thoracic aorta. Normal visualized thoracic spine. Healed left rib fracture. There is no demonstrated abnormality of the visualized soft tissue structures of the upper abdomen. RAD/CXR for Line Placement IMPRESSION: The tip of the aba catheter is at the junction of the superior vena cava and right atrium. Electronically Signed: Srinivasan Baker MD at 13:58 EDT ,
--- NOTE | 2023-09-09 13:41 | DCINST_ITS ---
Discharge Instructions Procedure Port-A-Cath Diet Discharge Diet: Light diet - advance as tolerated (Pain medication may cause nausea. You should typically eat light foods as you take your pain medication.) Activity Discharge Activity: Return to Normal Activity and May Shower (with your bandage in place in 1-2 days after surgery. DO NOT SHOWER WHEN YOUR PORT IS ACCESSED.) Additional Activity Instructions:: Resume Eliquis on , ibuprofen and Tylenol alternating for pain Dressing / Incision Call your doctor if your incision/area has: Continuous Slow Oozing, Sudden Inc reased Bleeding, Increased Pain/ Swelling, Increased Redness and Foul Smelling Discharge Call your doctor if you observe: Fever of 101 or Higher Remove Dressing in: 2 days Cleanse incision/area with: Soap & Water Follow Up Care Please Follow Up With: Obie Becker MD When: as needed [phone] Test Results: Test results from this visit will be discussed in further detail at your follow- up appointment, if applicable. Discharge Plan Admission Attending Provider: Obie Becker Primary Care Provider: Susan Parekh Discharge Orders/Prescriptions Prescriptions: No Action carvedilol 3.125 mg tablet 6.25 mg PO BID elderberry fruit 350 mg capsule 350 mg PO DAILY ondansetron HCl 8 mg tablet 8 mg PO Q8H PRN (Reason: nausea and vomiting) Qty: 30 6RF Rx Instructions: Take 1 tablet 1 hour prior to chemotherapy then every 8 hours if needed lidocaine-prilocaine 2.5-2.5 % cream 1 applic topical ONCE PRN (Reason: port access) 30 Days Qty: 30 2RF fluconazole 200 mg tablet 200 mg PO DAILY Patient Comments: TO START WITH CHEMO valsartan 320 mg tablet 320 mg PO DAILY Eliquis 5 mg tablet 5 mg PO BID pravastatin 40 mg tablet 40 mg PO DAILY Qty: 90 4RF Referrals / Follow Up: Susan Parekh, LOS-C [Primary Care Provider] - Disposition Disposition (needs filled in before D/C Order can be placed): Home, Self Care
[2023-09-09 13:45] VITALS: BP 117/67; BP 128/88; PULSE 75; RESP 16; TEMP 36.8; O2SAT 99
[2023-09-09 14:43] VITALS: BP 128/88
== END 2023-09-09 14:56 | disposition home or self-care (01) ==
LOC: SDC 10:51 → AC 10:52
PROVIDERS: PCP Nurse Practitioner Family; Referring Provider Nurse Practitioner Family; Visit Provider Surgery
PROC: (CPT 36561; principal; 2023-09-09 12:10)
DX: Z45.2 Encounter for adjustment and management of vascular access device (principal); D46.9 Myelodysplastic syndrome, unspecified; I48.0 Paroxysmal atrial fibrillation; E78.5 Hyperlipidemia, unspecified; I10 Essential (primary) hypertension; Z86.711 Personal history of pulmonary embolism; Z96.643 Presence of artificial hip joint, bilateral; Z86.718 Personal history of other venous thrombosis and embolism; G47.33 Obstructive sleep apnea (adult) (pediatric)
CPT/HCPCS: 36561; 00532; 71045; 77001; J7120; C1788

== ENCOUNTER 2023-09-10 08:49 | Outpatient (CLI) | payer MEDICARE, BC, SELFPAY ==
[2023-09-10 08:55] VITALS: BP 111/45; PULSE 67; RESP 16; TEMP 35.9; O2SAT 99
[2023-09-10 09:34] VITALS: BP 106/42; PULSE 75; RESP 16; TEMP 36.6; O2SAT 99
[2023-09-10 10:34] VITALS: BP 108/55; PULSE 49; RESP 16; TEMP 36.2
[2023-09-10 11:03] VITALS: BP 111/53; PULSE 53; RESP 16; TEMP 36.6; O2SAT 100
== END 2023-09-10 08:50 | disposition home or self-care (01) ==
LOC: MEDOUTP 08:49
PROVIDERS: PCP Nurse Practitioner Family; Referring Provider Clinical Nurse Specialist Acute Care; Visit Provider Clinical Nurse Specialist Acute Care
DX: D64.9 Anemia, unspecified (principal)
CPT/HCPCS: 36430; 86644; 86850; 86900; 86901; J7040; P9040; A4216

== ENCOUNTER 2023-09-24 08:21 | Outpatient (CLI) | payer MEDICARE, BC, SELFPAY ==
[2023-09-24 08:50] VITALS: BP 96/50; PULSE 49; RESP 16; TEMP 36.3
[2023-09-24 09:02] VITALS: BP 93/44; PULSE 46; RESP 16; TEMP 36.1
[2023-09-24 10:06] VITALS: BP 103/37; PULSE 51; RESP 16; TEMP 36.2; O2SAT 98
[2023-09-24 10:21] VITALS: BP 104/33; PULSE 64; RESP 16; TEMP 36.6; O2SAT 98
== END 2023-09-24 23:59 | disposition home or self-care (01) ==
LOC: MEDOUTP 08:21
PROVIDERS: PCP Nurse Practitioner Family; Referring Provider Nurse Practitioner; Visit Provider Nurse Practitioner
DX: D46.9 Myelodysplastic syndrome, unspecified (principal)
CPT/HCPCS: 36430; 86850; 86900; 86901; 86920; 86922; J7040; P9016; A4216

== ENCOUNTER 2023-09-30 08:21 | Outpatient (CLI) | payer MEDICARE, BC, SELFPAY ==
[2023-09-30 08:35] VITALS: BP 95/58; PULSE 71; RESP 16; TEMP 35.8; O2SAT 94
[2023-09-30 09:07] VITALS: BP 82/53; PULSE 114; RESP 16; TEMP 35.7
[2023-09-30 10:07] VITALS: BP 102/60; PULSE 76; RESP 16; TEMP 35.9; O2SAT 96
== END 2023-09-30 23:59 | disposition home or self-care (01) ==
LOC: MEDOUTP 08:21
PROVIDERS: PCP Nurse Practitioner Family; Referring Provider Clinical Nurse Specialist Acute Care; Visit Provider Clinical Nurse Specialist Acute Care
DX: D46.9 Myelodysplastic syndrome, unspecified (principal)
CPT/HCPCS: 36430; 86644; 86850; 86900; 86901; 86920; J7040; P9040; A4216

== ENCOUNTER 2023-10-08 07:32 | Outpatient (CLI) | payer MEDICARE, BC, SELFPAY | END 2023-10-08 23:59 | disposition home or self-care (01) | PROVIDERS: PCP Nurse Practitioner Family; Referring Provider Clinical Nurse Specialist Acute Care; Visit Provider Clinical Nurse Specialist Acute Care | DX: D46.9 Myelodysplastic syndrome, unspecified (principal) | CPT/HCPCS: 36591; 86850; 86900; 86901; 86920; 86922; A4216 ==

== ENCOUNTER 2023-10-09 07:57 | Outpatient (CLI) | payer MEDICARE, BC, SELFPAY ==
[2023-10-09 08:04] VITALS: BP 131/65; PULSE 76; RESP 16; TEMP 36.1; O2SAT 99
[2023-10-09 08:45] VITALS: BP 113/65; PULSE 50; RESP 16; TEMP 36.9; O2SAT 99
[2023-10-09 09:47] VITALS: BP 114/46; PULSE 72; RESP 16; TEMP 36.8; O2SAT 97
[2023-10-09 10:50] VITALS: BP 116/52; PULSE 67; RESP 16; TEMP 36.5
== END 2023-10-09 23:59 | disposition home or self-care (01) ==
LOC: MEDOUTP 07:57
PROVIDERS: PCP Nurse Practitioner Family; Referring Provider Clinical Nurse Specialist Acute Care; Visit Provider Clinical Nurse Specialist Acute Care
DX: D64.9 Anemia, unspecified (principal); D46.9 Myelodysplastic syndrome, unspecified
CPT/HCPCS: 36430; 86850; 86900; 86901; 86920; 86922; J7040; P9016

== ENCOUNTER 2023-10-21 10:13 | Outpatient (CLI) | payer MEDICARE, BC, SELFPAY ==
[2023-10-21 10:30] VITALS: BP 110/62; PULSE 57; RESP 16; TEMP 36.4; O2SAT 95; BMI 33.0
[2023-10-21 10:50] VITALS: BP 111/58; PULSE 58; RESP 16; TEMP 36.3; O2SAT 96
[2023-10-21 11:55] VITALS: BP 114/69; PULSE 52; RESP 16; TEMP 36.1; O2SAT 95
[2023-10-21 12:14] VITALS: BP 121/70; PULSE 67; RESP 16; TEMP 36.6; O2SAT 97
== END 2023-10-21 23:59 | disposition home or self-care (01) ==
LOC: MEDOUTP 10:14
PROVIDERS: PCP Nurse Practitioner Family; Referring Provider Nurse Practitioner; Visit Provider Nurse Practitioner
DX: D46.9 Myelodysplastic syndrome, unspecified (principal)
CPT/HCPCS: 36430; 86850; 86900; 86901; 86920; 86922; J7040; P9040; A4216

== ENCOUNTER 2023-10-28 08:47 | Outpatient (CLI) | payer MEDICARE, BC, SELFPAY ==
[2023-10-28 09:10] VITALS: BP 84/42; PULSE 97; RESP 16; TEMP 36.2; O2SAT 99
[2023-10-28 09:37] VITALS: BP 91/49; PULSE 85; RESP 16; TEMP 36.2; O2SAT 99
[2023-10-28 10:37] VITALS: BP 91/61; PULSE 88; RESP 16; TEMP 36.2; O2SAT 100
[2023-10-28 11:12] VITALS: BP 95/60; PULSE 72; RESP 16; TEMP 36.2; O2SAT 99
== END 2023-10-28 23:59 | disposition home or self-care (01) ==
LOC: MEDOUTP 08:47
PROVIDERS: PCP Nurse Practitioner Family; Referring Provider Nurse Practitioner; Visit Provider Nurse Practitioner
DX: D46.9 Myelodysplastic syndrome, unspecified (principal)
CPT/HCPCS: 36430; 86644; 86850; 86900; 86901; 86920; 86922; P9040; A4216

== ENCOUNTER 2023-10-31 08:03 | Outpatient (CLI) | payer MEDICARE, BC, SELFPAY ==
[2023-10-31 08:26] VITALS: BP 113/64; PULSE 89; RESP 16; TEMP 36.4; O2SAT 99; BMI 32.7
[2023-10-31 09:16] VITALS: BP 104/47; PULSE 80; RESP 16; TEMP 36.4; O2SAT 99
[2023-10-31 10:20] VITALS: BP 112/47; PULSE 83; RESP 16; TEMP 36.3; O2SAT 99
[2023-10-31 10:45] VITALS: BP 126/65; PULSE 74; RESP 16; TEMP 36.3; O2SAT 99
== END 2023-10-31 23:59 | disposition home or self-care (01) ==
LOC: MEDOUTP 08:04
PROVIDERS: PCP Nurse Practitioner Family; Visit Provider Clinical Nurse Specialist Acute Care
DX: D46.9 Myelodysplastic syndrome, unspecified (principal)
CPT/HCPCS: 36430; 86850; 86900; 86901; 86920; 86922; J7040; P9040; A4216

== ENCOUNTER 2023-11-20 07:22 | Outpatient (CLI) | payer MEDICARE, BC, SELFPAY ==
[2023-11-20 07:39] VITALS: BP 91/54; PULSE 78; RESP 16; TEMP 35.8; O2SAT 98; BMI 32.1
[2023-11-20 09:40] VITALS: BP 99/56; PULSE 79; RESP 16; TEMP 36.3
[2023-11-20 10:40] VITALS: BP 116/66; PULSE 51; RESP 16; TEMP 36.5; O2SAT 100
== END 2023-11-20 23:59 | disposition home or self-care (01) ==
LOC: MEDOUTP 07:23
PROVIDERS: PCP Nurse Practitioner Family; Referring Provider Clinical Nurse Specialist Acute Care; Visit Provider Clinical Nurse Specialist Acute Care
DX: D46.9 Myelodysplastic syndrome, unspecified (principal)
CPT/HCPCS: 36430; 86644; 86850; 86900; 86901; 86920; 86922; P9040; A4216

== ENCOUNTER 2023-11-28 08:00 | Outpatient (CLI) | payer MEDICARE, BC, SELFPAY ==
[2023-11-28 08:25] VITALS: PULSE 79; RESP 16; TEMP 35.9; O2SAT 96; BMI 31.6
[2023-11-28 09:00] VITALS: BP 105/68; PULSE 84; RESP 16; TEMP 35.5; O2SAT 98
[2023-11-28 10:00] VITALS: BP 109/66; PULSE 76; RESP 16; TEMP 36; O2SAT 96
[2023-11-28 10:49] VITALS: BP 111/72; PULSE 70; RESP 16; TEMP 36; O2SAT 99
== END 2023-11-28 23:59 | disposition home or self-care (01) ==
LOC: MEDOUTP 08:01
PROVIDERS: PCP Nurse Practitioner Family; Referring Provider Nurse Practitioner; Visit Provider Nurse Practitioner
DX: D46.9 Myelodysplastic syndrome, unspecified (principal)
CPT/HCPCS: 36430; 86850; 86900; 86901; 86920; 86922; J7040; P9040; A4216

== ENCOUNTER 2023-12-05 07:33 | Outpatient (CLI) | payer MEDICARE, BC, SELFPAY ==
[2023-12-05 07:45] VITALS: BP 106/51; PULSE 51; RESP 16; TEMP 35.8; O2SAT 100
[2023-12-05 08:14] VITALS: BP 99/56; PULSE 61; RESP 16; TEMP 36.2
[2023-12-05 09:14] VITALS: BP 106/51; PULSE 50; RESP 16; TEMP 36.1
[2023-12-05 09:57] VITALS: BP 116/56; PULSE 51; RESP 16; TEMP 36.2
== END 2023-12-05 23:59 | disposition home or self-care (01) ==
LOC: MEDOUTP 07:34
PROVIDERS: PCP Nurse Practitioner Family; Visit Provider Nurse Practitioner
DX: D46.9 Myelodysplastic syndrome, unspecified (principal)
CPT/HCPCS: 36430; 86850; 86900; 86901; 86920; 86922; J7040; P9040; A4216

== ENCOUNTER 2023-12-16 07:57 | Outpatient (CLI) | payer MEDICARE, BC, SELFPAY ==
[2023-12-16 08:15] VITALS: BP 109/59; PULSE 90; RESP 16; TEMP 35.9; O2SAT 96
[2023-12-16 09:04] VITALS: BP 96/57; PULSE 70; RESP 16; TEMP 35.6; O2SAT 97
[2023-12-16 09:59] VITALS: BP 107/65; PULSE 86; RESP 16; TEMP 35.9; O2SAT 94
[2023-12-16 10:35] VITALS: BP 112/79; PULSE 80; RESP 16; TEMP 36; O2SAT 95
== END 2023-12-16 23:59 | disposition home or self-care (01) ==
LOC: MEDOUTP 07:57
PROVIDERS: PCP Nurse Practitioner Family; Referring Provider Nurse Practitioner; Visit Provider Nurse Practitioner
DX: D64.9 Anemia, unspecified (principal)
CPT/HCPCS: 36430; 86644; 86850; 86900; 86901; 86920; 86922; J7040; P9040; A4216

== ENCOUNTER 2023-12-23 08:28 | Outpatient (CLI) | payer MEDICARE, BC, SELFPAY ==
[2023-12-23] VITALS (7 sets, daily range): BP systolic 104–126; BP diastolic 47–75; PULSE 50–95; RESP 16; TEMP 35.7–36.1; O2SAT 95–97; BMI 31.6
== END 2023-12-23 23:59 | disposition home or self-care (01) ==
LOC: MEDOUTP 08:29
PROVIDERS: PCP Nurse Practitioner Family; Referring Provider Nurse Practitioner; Visit Provider Nurse Practitioner
DX: D46.9 Myelodysplastic syndrome, unspecified (principal)
CPT/HCPCS: 36430; 86644; 86850; 86900; 86901; 86920; 86922; J7040; P9040; A4216

== ENCOUNTER 2024-01-06 12:47 | Outpatient (CLI) | payer MEDICARE, BC, SELFPAY ==
[2024-01-06 13:02] VITALS: BP 110/56; PULSE 58; RESP 16; TEMP 36.4; O2SAT 98; BMI 31.6
[2024-01-06 13:26] VITALS: BP 93/52; PULSE 56; RESP 16; TEMP 36.2; O2SAT 98
[2024-01-06 14:26] VITALS: BP 103/60; PULSE 57; RESP 16; TEMP 36.6
[2024-01-06 15:14] VITALS: BP 118/60; PULSE 59; RESP 16; TEMP 36.2; O2SAT 99
== END 2024-01-06 23:59 | disposition home or self-care (01) ==
LOC: MEDOUTP 12:47
PROVIDERS: PCP Nurse Practitioner Family; Referring Provider Nurse Practitioner; Visit Provider Nurse Practitioner
DX: D46.9 Myelodysplastic syndrome, unspecified (principal)
CPT/HCPCS: 36430; 86850; 86900; 86901; 86920; 86922; J7040; P9040; A4216

== ENCOUNTER 2024-01-14 10:28 | Outpatient (CLI) | payer MEDICARE, BC, SELFPAY ==
[2024-01-14 10:46] VITALS: BP 114/74; PULSE 82; RESP 16; TEMP 36.6; O2SAT 100
[2024-01-14 11:10] VITALS: BP 107/62; PULSE 80; RESP 16; TEMP 36.6; O2SAT 100
[2024-01-14 12:10] VITALS: BP 130/61; PULSE 85; RESP 16; TEMP 36.6; O2SAT 100
== END 2024-01-14 23:59 | disposition home or self-care (01) ==
LOC: MEDOUTP 10:28
PROVIDERS: PCP Nurse Practitioner Family; Referring Provider Nurse Practitioner; Visit Provider Nurse Practitioner
DX: D46.9 Myelodysplastic syndrome, unspecified (principal)
CPT/HCPCS: 36430; 86644; 86850; 86900; 86901; 86920; 86922; J7040; P9040; A4216

== ENCOUNTER 2024-01-20 08:28 | Outpatient (CLI) | payer MEDICARE, BC, SELFPAY ==
[2024-01-20 08:56] VITALS: BP 114/72; PULSE 62; RESP 16; TEMP 35.8; O2SAT 98; BMI 32.1
[2024-01-20 09:17] VITALS: BP 119/63; PULSE 76; RESP 16; TEMP 36.1
[2024-01-20 10:17] VITALS: BP 111/63; PULSE 73; RESP 16; TEMP 36.2
== END 2024-01-20 23:59 | disposition home or self-care (01) ==
LOC: MEDOUTP 08:28
PROVIDERS: PCP Nurse Practitioner Family; Referring Provider Nurse Practitioner; Visit Provider Nurse Practitioner
DX: D46.9 Myelodysplastic syndrome, unspecified (principal)
CPT/HCPCS: 36430; 86644; 86850; 86900; 86901; 86920; 86922; J7040; P9040; A4216

== ENCOUNTER 2024-01-30 07:53 | Outpatient (CLI) | payer MEDICARE, BC, SELFPAY ==
[2024-01-30 08:14] VITALS: BP 93/41; PULSE 106; RESP 16; TEMP 36.1; O2SAT 97
[2024-01-30 08:31] VITALS: BP 100/54; PULSE 65; RESP 16; TEMP 36.1; O2SAT 99
[2024-01-30 09:28] VITALS: BP 89/46; PULSE 68; RESP 16; TEMP 36.1; O2SAT 99
[2024-01-30 10:07] VITALS: BP 115/59; PULSE 68; RESP 16; TEMP 35.8; O2SAT 98
[2024-01-30 10:35] VITALS: BP 118/69; PULSE 76; RESP 16; TEMP 36.3; O2SAT 99
[2024-01-30 11:59] VITALS: BP 132/50; PULSE 76; RESP 16; TEMP 36.4; O2SAT 100
== END 2024-01-30 23:59 | disposition home or self-care (01) ==
LOC: MEDOUTP 07:53
PROVIDERS: PCP Nurse Practitioner Family; Referring Provider Nurse Practitioner; Visit Provider Nurse Practitioner
DX: D46.9 Myelodysplastic syndrome, unspecified (principal)
CPT/HCPCS: 36430; 86644; 86850; 86900; 86901; 86920; 86922; J7040; P9040; A4216

== ENCOUNTER 2024-02-06 08:23 | Outpatient (CLI) | payer MEDICARE, BC, SELFPAY ==
[2024-02-06 08:45] VITALS: BP 115/66; PULSE 77; RESP 14; TEMP 36.2; O2SAT 97
[2024-02-06 09:18] VITALS: BP 99/55; PULSE 73; RESP 16; TEMP 36.1; O2SAT 97
[2024-02-06 10:22] VITALS: BP 93/63; PULSE 71; RESP 16; TEMP 36.1; O2SAT 99
[2024-02-06 10:54] VITALS: BP 130/70; PULSE 68; RESP 16; TEMP 36.3; O2SAT 98
== END 2024-02-06 23:59 | disposition home or self-care (01) ==
LOC: MEDOUTP 08:23
PROVIDERS: PCP Nurse Practitioner Family; Referring Provider Nurse Practitioner; Visit Provider Nurse Practitioner
DX: D46.9 Myelodysplastic syndrome, unspecified (principal)
CPT/HCPCS: 36430; 86850; 86900; 86901; 86920; 86922; P9040

== ENCOUNTER 2024-02-17 08:04 | Outpatient (CLI) | payer MEDICARE, BC, SELFPAY ==
[2024-02-17 08:09] VITALS: BP 123/62; PULSE 67; RESP 16; TEMP 35.6; O2SAT 100
[2024-02-17 08:41] VITALS: BP 94/61; PULSE 87; RESP 16; TEMP 36.4; O2SAT 99
[2024-02-17 09:41] VITALS: BP 114/59; PULSE 70; RESP 16; TEMP 36.1
[2024-02-17 10:35] VITALS: BP 105/62; PULSE 75; RESP 16; TEMP 36.4; O2SAT 99
== END 2024-02-17 23:59 | disposition home or self-care (01) ==
LOC: MEDOUTP 08:04
PROVIDERS: PCP Nurse Practitioner Family; Referring Provider Nurse Practitioner; Visit Provider Nurse Practitioner
DX: D46.9 Myelodysplastic syndrome, unspecified (principal)
CPT/HCPCS: 36430; 86850; 86900; 86901; 86920; 86922; P9016; A4216

== ENCOUNTER 2024-03-02 08:45 | Outpatient (CLI) | payer MEDICARE, BC, SELFPAY ==
[2024-03-01 09:06] LABS: Absolute Neutrophil Count 1.3 X10^3/uL (2.0-7.7); Basophil# 0.01 X10^3/uL; Basophil% 0.3 % (0-1); Eosinophil# 0.12 X10^3/uL; Hematocrit 21.2 % (40-54); Hemoglobin 7.1 g/dL (13.0-16.5); Lymphocyte % 49.8 % (19-41); Mean Corp Hgb Conc 33.5 g/dL (32-36); Mean Corpuscular Hgb 30.1 pg (27.0-32.0); Mean Corpuscular Volume 89.8 fL (80-94); Mean Platelet Vol. 11.1 fl (6.2-12.0); Monocyte# 0.08 X10^3/uL; Monocyte% 2.7 % (0-10); NRBC Flagged by Analyzer 0 % (0-5); Neutrophil # 1.25 X10^3/uL (2.7-7.7); Neutrophil % 41.5 % (47-70); POSITIVE COUNT YES; POSITIVE MORPHOLOGY YES; Platelet Count 54 K/mm3 (150-450); RBC Distribution Width CV 13.6 % (11.6-14.6); RBC Distribution Width SD 43.8 fl (35.1-43.9); Red Blood Count 2.36 M/mm3 (4.6-6.2)
[2024-03-01 09:08] LABS: Differential Indicated SCAN CRITERIA MET
[2024-03-01 09:19] LABS: ALB/GLOB Ratio 1.1 RATIO (0.9-2.4); AST(SGOT) 25 U/L (15-37); Alanine Aminotransfer ALT/SGPT 44 U/L (16-61); Albumin, Serum 3.6 g/dL (3.2-5.0); Alkaline Phosphatase 76 U/L (45-117); Anion Gap 9 (5-15); BUN 34 mg/dL (7-18); BUN/Creat Ratio 30.6 RATIO (10-20); Calcium,Total 9.3 mg/dL (8.5-10.1); Chloride 108 mmol/L (98-107); Creatinine, Serum 1.11 mg/dL (0.70-1.30); EST Glomerular Filtration Rate 69 mL/min (>60); Est Glom Filt Rate - Afr Amer 84 mL/min (>60); Globulin 3.2 g/dL (2.2-4.2); Glucose 112 mg/dL (74-106); Potassium 4.3 mmol/L (3.5-5.1); Protein, Total 6.8 g/dL (6.4-8.2); Sodium Level 142 mmol/L (136-145)
[2024-03-01 09:35] LABS: Platelet Estimate MOD DEC (ADEQ)
[2024-03-01 16:59] LABS: Xtra CC BBK (Onc ONLY) EXTRA TUBE; Xtra Tube EP Lab EXTRA TUBE
[2024-03-02 08:57] VITALS: BP 113/60; PULSE 53; RESP 16; TEMP 35.9; O2SAT 99
--- OUTSIDE RECORDS SUMMARY | 2024-03-02 09:18 | XMS RPT_ITS | CCD ---
Author Organization [facility] CliniSyal Care Team Providers Care Superintendent [employer] Name Role Phone Jimmy Herrera MD Unavailable HARSH Bianchi Michelle M Unavailable Nisha Carreno Unavailable Terese Warren Unavailable Valeria Bernard Unavailable Unavailable Manchak, Traci Unavailable Unavailable Terese Warren Unavailable Churner, System Unavailable Unavailable Unavailable Unavailable BONIFACIO PAGE Attending Unavailable KAYLEEBONIFACIO Primary Care Unavailable KAYLEEBONIFACIO LANDRUM Admitting Unavailable KAYLEEBONIFACIO Attending Unavailable KAYLEEBONIFACIO Primary Care Unavailable KAYLEEBONIFACIO Admitting Unavailable Nisha Carreno DO Unavailable Terese Warren MD Unavailable Valeria Bernard Unavailable Unavailable Manchak DIETARY CLERK, Traci Unavailable Unavailable Terese Warren MD Unavailable Churner, System Unavailable Unavailable Unavailable Unavailable Nisha Carreno DO Unavailable Terese Warren MD Unavailable Brittani Woods Primary Care Provider Yariel HERNANDEZ, Rosita Unavailable Unavailable Sarah [facility], Rekha Rankin Unavailable Debbie HANDY, ANIRUDH, Mkie Unavailable Zuri HERNANDEZ, Zulema Unavailable Unavailable Zuri HERNANDEZ, Zulema Unavailable Unavailable Debbie OLEARY, Mike Unavailable Zuri HERNANDEZ, Zulema Unavailable Unavailable Niurka Laboy MD Unavailable Bishop HERNANDEZ, Vivi Unavailable Unavailable Jimmy Herrera MD Unavailable DANNI, GULFPORT Primary Care Unavailable BANDAR SWANSON Attending Unavailable BANDAR SWANSON Referring Unavailable DANNI, GULFPORT Primary Care Unavailable LONGTHAI Attending Unavailable LONG, THAI K Referring Unavailable DANNI, GULFPORT Primary Care Unavailable WALL, NIURKA A Referring Unavailable ALEX FARRELL Attending Unavailable DANNI, GULFPORT Primary Care Unavailable WALL, NIURKA A Referring Unavailable ADAM, CONCHA S Attending Unavailable DANNI, GULFPORT Primary Care Unavailable BANDAR SWANSON Attending Unavailable PERRIONABANDAR Referring Unavailable DANNI, GULFPORT Primary Care Unavailable WALL, NIURKA A Attending Unavailable SELF, SELF Referring Unavailable DANNI, GULFPORT Primary Care Unavailable WALL, NIURKA A Attending Unavailable SELF, SELF Referring Unavailable DANNI, GULFPORT Primary Care Unavailable BORATE, MIKE Attending Unavailable BORATE, MIKE Referring Unavailable MOODJIMMY SNOW Referring Unavailable MOODJIMMY SNOW Attending Unavailable DANNI, GULFPORT Primary Care Unavailable DANNI, GULFPORT Primary Care Unavailable SELF, SELF Referring Unavailable WALL, NIURKA A Attending Unavailable JIMMY HERRERA Attending Unavailable DANNI, BRITTANI Referring Unavailable DANNI, GULFPORT Primary Care Unavailable DANNI, GULFPORT Primary Care Unavailable BORATE, MIKE Attending Unavailable SELF, SELF Referring Unavailable SELF, SELF Referring Unavailable DANNI, GULFPORT Primary Care Unavailable WALL, NIURKA A Attending Unavailable SELF, SELF Referring Unavailable DANNI, GULFPORT Primary Care Unavailable BORATE, MIKE Attending Unavailable DANNI, GULFPORT Primary Care Unavailable BANDAR SWANSON Attending Unavailable [facility] Referring Unavailable JIMMY HERRERA Attending Unavailable JIMMY HERRERA Referring Unavailable DANNI, GULFPORT Primary Care Unavailable JIMMY HERRERA Attending Unavailable JIMMY EHRRERA Referring Unavailable DANNI, GULFPORT Primary Care Unavailable JIMMY HERRERA Referring Unavailable DANNI, GULFPORT Primary Care Unavailable BANDAR SWANSON Attending Unavailable JIMMY HERRERA Attending Unavailable SELF, SELF Referring Unavailable DANNI, GULFPORT Primary Care Unavailable LONG, THAI K Attending Unavailable LONGTHAI K Referring Unavailable DANNI, GULFPORT Primary Care Unavailable SAVONA, BANDAR J Attending Unavailable BANDAR SWANSON Admitting Unavailable DANNI, GULFPORT Primary Care Unavailable IHISSCHEDULE, INTERVENTIONAL RAD Admitting Unavailable IHISSCHEDULE, INTERVENTIONAL RAD Attending Unavailable WALL, NIURKA A Referring Unavailable DANNI, GULFPORT Primary Care Unavailable BORATE, MIKE Referring Unavailable BORATE, MIKE Attending Unavailable DANNI, GULFPORT Primary Care Unavailable WALL, NIURKA A Attending Unavailable WALL, NIURKA A Referring Unavailable DANNI, BRITTANI Referring Unavailable DANNI, GULFPORT Primary Care Unavailable JOSE RUTH Attending Unavailable DANNI, GULFPORT Primary Care Unavailable WALL, NIURKA A Attending Unavailable WALL, NIURKA A Referring Unavailable DANNI, GULFPORT Primary Care Unavailable JOSE RUTH Attending Unavailable JOSE RUTH Referring Unavailable DANNI, GULFPORT Primary Care Unavailable BORATE, MIKE Referring Unavailable BORATE, MIKE Attending Unavailable DANNI, GULFPORT Primary Care Unavailable EILEEN ECHOLS Attending Unavailable EILEEN ECHOLS Referring Unavailable DANNI, GULFPORT Primary Care Unavailable WALL, NIURKA A Attending Unavailable EILEEN ECHOLS Referring Unavailable ISCKARREKHA MACKEY S Referring Unavailable DANNI, GULFPORT Primary Care Unavailable BORATE, MIKE Attending Unavailable Medications Current Medications Medication Drug Class(es) Dates Sig (Normalized) Sig (Original) acyclovir 800 mg oral tablet (15 sources) Herpesvirus Nucleoside Analog DNA Polymerase Inhibitor, Herpes Simplex Virus Nucleoside Analog DNA Polymerase Inhibitor, Herpes Zoster Virus Nucleoside Analog DNA Polymerase Inhibitor Start: 01-04-2024 take 1 tablet by mouth twice daily acyclovir 800 MG tablet Take 1 tablet by mouth 2 times daily. 60 tablet 3 01/04/2024 Active Start: 08-20-2023 End: 12-11-2023 take 1 tablet by mouth twice daily acyclovir 800 MG tablet Take 1 tablet by mouth 2 times daily. 60 tablet 3 12/11/2023 Active apixaban 5 mg oral tablet (20 sources) Factor Xa Inhibitor Start: 06-24-2023 End: 12-11-2023 take 1 tablet by mouth every twelve hours apixaban 5 MG tablet Indications: PAF (paroxysmal atrial fibrillation) , Essential hypertension , Hyperlipidemia, unspecified hyperlipidemia type , FATIMAH (obstructive sleep apnea) Take 1 tablet by mouth every 12 hours. 60 tablet 11 12/11/2023 Active carvedilol 12.5 mg oral tablet (19 sources) alpha-Adrenergic Seamus, beta-Adrenergic Seamus Start: 09-05-2023 take 1 tablet by mouth twice daily at mealtime carveDILOL 12.5 MG tablet Indications: PAF (paroxysmal atrial fibrillation) Take 1 tablet by mouth 2 times daily with meals. 180 tablet 3 09/05/2023 Active Start: 08-27-2023 take 1 tablet by usman th twice daily at mealtime carveDILOL 6.25 MG tablet Indications: PAF (paroxysmal atrial fibrillation) Take 1 tablet by mouth 2 times daily with meals. 180 tablet 3 08/27/2023 Active Start: 07-29-2023 End: 08-27-2023 take 1 tablet by mouth twice daily at mealtime carveDILOL (Coreg) 3.125 MG tablet Indications: PAF (paroxysmal atrial fibrillation) Take 1 tablet by mouth 2 times daily with meals. 60 tablet 6 07/29/2023 08/27/2023 Discontinued (Reorder) Elderberry preparation (20 sources) ELDERBERRY PO Ta ke 2 capsules by mouth as needed for Other (Cold prevention). Active take 2 capsules by mouth once da keron ELDERBERRY PO Take 2 capsules by mouth daily. Active fluconazole 200 mg oral tablet (15 sources) Azole Antifungal Start: 01-04-2024 take 2 tablets by mouth once daily Fluconazole 200 MG tablet Take 2 tablets by mouth daily. 60 tablet 3 01/04/2024 Active Start: 08-20-2023 End: 12-11-2023 take 2 tablets by mouth once daily Fluconazole 200 MG tablet Take 2 tablets by mouth daily. 60 tablet 3 12/11/2023 Active levoFLOXacin 500 mg oral tablet (12 sources) Quinolone Antimicrobial Start: 01-05-2024 End: 02-04-2024 take 1 tablet by mouth once daily levoFLOXacin 500 MG tablet Take 1 tablet by mouth daily. 30 tablet 01/05/2024 02/04/2024 Active Start: 10-10-2023 End: 11-09-2023 take 1 tablet by mouth once daily levoFLOXacin (Levaquin) 500 MG tablet Take 1 tablet by mouth daily. 10/10/2023 11/09/2023 Active Start: 08-20-2023 End: 09-19-2023 take 1 tablet by mouth once daily levoFLOXacin (Levaquin) 500 MG tablet Take 1 tablet by mouth daily. 30 tablet 3 08/20/2023 09/19/2023 Active melatonin 5 mg chewable tablet (20 sources) Melatonin 5 MG C hew Tab Chew 2 tablets as needed for Other (sleep onset). Active ondansetron 4 mg disintegrating oral tablet (10 sources) Serotonin-3 Receptor Antagonist Start: take 2 tablets by mouth every eight hours as needed Ondansetron 4 MG Tab Dispersible tablet Take 2 tablets by mouth every 8 hours as needed for Nausea / Vomiting. 30 tablet 01/04/2024 Active Start: 10-10-2023 take 2 tablets by mo uth every eight hours as needed Ondansetron 4 MG Tab Dispersible tablet Take 2 tablets by mouth every 8 hours as needed for Nausea / Vomiting. 30 tablet 10/10/2023 Active pravastatin sodium 40 mg oral tablet (20 sources) HMG-CoA Reductase Inhibitor Start: 03-17-2023 take 1 tablet by mouth once daily Pravastatin 40 MG tablet Take 1 tablet by mouth daily. 03/17/2023 Active Start: 08-30-2013 take 1 tablet by usman th once daily PRAVASTATIN SODIUM 20 MG TABS One tablet by mouth daily PRAVASTATIN SODIUM [id number] Jimym Herrera MD Start: 08-30-2013 take 1 tablet by usman th once daily PRAVACHOL 40 MG TABS One tablet by mouth daily PRAVASTATIN SODIUM [id number] Cam Thibodeaux PACK OUT OPERATOR valsartan 160 mg oral tablet (20 sources) Angiotensin 2 Receptor Seamus Start: 12-24-2023 take 1 tablet by mouth once daily valsartan 160 MG tablet Take 1 tablet by mouth daily. 90 tablet 3 12/24/2023 Active Start: 05-14-2023 take 0.5 tablet by m out once daily valsartan 320 MG tablet Take 0.5 tablets by mouth daily. 05/14/2023 Active Start: 05-14-2023 take 1 tablet by usman th once daily valsartan 320 MG tablet Take 1 tablet by mouth daily. 05/14/2023 Active Start: 03-12-2011 take 1 tablet by usman th once daily DIOVAN 320 MG TABS One tablet by mouth daily VALSARTAN [id number] Eileen Bianchi PA-C Completed/Discontinued Medications Medication Drug Class(es) Dates Sig [...] 08-May-2012 End : 12-Feb-2013 Inactive Comments: twenty Comment on above: twenty [id number] 200 actuat albuterol 0.09 mg/actuat metered dose inhaler (4 sources) beta2-Adrenergic Agonist Start: 02-12-2013 End: 03-15-2013 PROVENTIL HFA, 108 (90 Base)MCG/ACT (Inhalation Aerosol Solution) 1 Aerosol Soln puffs every 6 hours prn for 0 days Quantity: 1 {Aerosol_Soln} Refills: 0 Ordered: 15-Mar-2013 Traci Sheehan CMA Start : 12-Feb-2013 End : 15-Mar-2013 Inactive Start: 02-12-2013 End: 03-15-2013 PROVENTIL HFA, 108 (90 Base) MCG/ACT (Inhalation Aerosol Solution) 1 Aerosol Soln puffs every 6 hours prn for 0 days Quantity: 1 {Aerosol_Soln} Refills: 0 Ordered: 15-Mar-2013 Traci Sheehan CMA Start : 12-Feb-2013 End : 15-Mar-2013 Inactive amoxicillin 875 mg / clavulanate 125 mg oral tablet (4 sources) Penicillin-class Antibacterial Start: 02-12-2013 End: 02-25-2013 take 1 tablet by mouth twice daily AUGMENTIN, 875-125MG (Oral Tablet) 1 (one) Tablet bid for 0 days Quantity: 20 {Tablet} Refills: 0 Ordered: 25-Feb-2013 Traci Sheehan CMA Start : 12-Feb-2013 End : 25-Feb-2013 Inactive aspirin 81 mg oral tablet (2 sources) Nonsteroidal Anti-inflammatory Drug Start: 06-26-2011 take 1 tablet by mouth once daily ASPIRIN 81 MG TABS One tablet by mouth daily ASPIRIN [id number] Jimmy Herrera MD 24 hr dilTIAZem hydrochloride 180 mg extended release oral capsule (8 sources) Calcium Channel Seamus Start: 12-27-2011 take 1 tablet by mouth twice daily CARDIZEM CD 180 MG [id number] One tablet by mouth twice daily DILTIAZEM HCL COATED BEADS [id number] Cam Thibodeaux PACK OUT OPERATOR Start: 03-12-2011 take 1 tablet by usman th once daily CARDIZEM CD 180 MG [id number] One tablet by mouth daily DILTIAZEM HCL COATED BEADS [id number] Jimmy Herrera MD ezetimibe 10 mg / simvastatin 20 mg oral tablet (10 sources) HMG-CoA Reductase Inhibitor, Dietary Cholesterol Absorption Inhibitor Start: 03-12-2011 End: 03-02-2014 take 1 tablet by mouth at bedtime VYTORIN 10-20 MG TABS One tablet by mouth at bedtime. (STOP s/p completion of the current Rx) EZETIMIBE-SIMVASTATIN [id number] Jimmy Herrera MD take 1 tablet by mouth once rashida y VYTORIN, 10-20MG (Oral Tablet) 1 qd (10-20 MG) Active flecainide acetate 150 mg oral tablet (8 sources) Antiarrhythmic Start: 10-14-2011 take 1 tablet by mouth twice daily FLECAINIDE ACETATE 150 MG TABS One tablet by mouth twice daily FLECAINIDE ACETATE [id number] Cam Thibodeaux PACK OUT OPERATOR Start: 03-12-2011 FLECAINIDE ALFRED DENNIS 50 MG TABS 1 1/2 tablets by mouth 2 X daily FLECAINIDE ACETATE [id number] Jimmy Herrera MD iohexol (OMNIPAQUE) 350 MG/ML injection 1-171 mL (1 source) Start: 10-30-2023 End: 10-30-2023 1-171 mL, Intravenous, ONCE, 1 dose, On Luiza 10/30/23 at 1315, Extravasation Risk, CT Procedure 10 ml lidocaine hydrochloride 20 mg/ml injection (2 sources) Antiarrhythmic, Amide Local Anesthetic Start: 12-29-2023 End: 12-29-2023 200 mg (10 mL), Other, ONCE, 1 dose, On 12/29/23 at 1515 Start: 08-11-2023 End: 08-11-2023 200 mg (10 mL), Other, ONCE, 1 dose, On 08/11/23 at 1145 loratadine 10 mg oral tablet (4 sources) take 1 mg by mouth once daily CLARITIN, 10MG (Oral Tablet) qd (10 MG) Active MULTIPLE VITAMIN (2 sources) Start: 06-26-2011 take 1 tablet by mouth once daily MULTIVITAMINS CAPS One tablet by mouth daily MULTIPLE VITAMIN [id number] Jimmy Herrera MD Multivitamin w/ minerals tablet (3 sources) End: 08-04-2023 take 1 tablet by mouth once daily Multivitamin w/ minerals tablet Take 1 tablet by mouth daily. 08/04/2023 Discontinued (Medication Reconciliation (suppress cancel msg)) take 1 tablet by mouth once rashida y Multivitamin w/ minerals tablet Take 1 tablet by mouth daily. Active oseltamivir 75 mg oral capsule (4 sources) Neuraminidase Inhibitor Start: 05-08-2012 End: 02-12-2013 take 1 capsule by mouth twice daily TAMIFLU, 75MG (Oral Capsule) 1 Capsule bid for 0 days Quantity: 10 {Capsule} Refills: 0 Ordered: 12-Feb-2013 Start : 08-May-2012 End : 12-Feb-2013 Inactive regadenoson (LEXISCAN) injection 0.4 mg (1 source) Start: 09-04-2023 End: 09-04-2023 take 0.4 mg intravenously once 0.4 mg, Intravenous, ONCE, 1 dose, On Luiza 09/04/23 at 1215, Give rapid iv push over 10 seconds, NM Procedure rivaroxaban 20 mg oral tablet (1 source) Factor Xa Inhibitor Start: 06-17-2023 End: 06-24-2023 take 1 tablet by mouth once daily at dinner Xarelto 20 MG tablet Take 1 tablet by mouth daily with dinner. 06/17/2023 06/24/2023 Discontinued simvastatin 20 mg oral tablet (2 sources) HMG-CoA Reductase Inhibitor Start: 08-30-2013 take 1 tablet by mouth once daily SIMVASTATIN 20 MG TABS One tablet by mouth daily SIMVASTATIN [id number] Jimmy Herrera MD 20 ml sodium chloride 9 mg/ml injection (3 sources) Start: 10-30-2023 End: 10-30-2023 1-100 mL, Intravenous, ONCE NEEDED, 1 dose, Starting on Luiza 10/30/23 at 1230, Until Luiza 10/30/23 at 1230, Flush, CT Procedure Start: 09-04-2023 End: 09-04-2023 10-50 mL, Intravenous, ONCE NEEDED, 1 dose, Starting on Luiza 09/04/23 at 0903, Until Luiza 09/04/23 at 1120, Flush, NM Procedure atrial fibrillation sotalol hydrochloride 80 mg oral tablet (4 sources) Antiarrhythmic take 2 tablets by mouth once daily SOTALOL HCL, 80MG (Oral Tablet) 2 qd (80 MG) Inactive take 2 tablets by mouth once mark ly SOTALOL HCL, 80MG (Oral Tablet) 2 qd (80 MG) Inactive Technetium tc 99m sestamibi (SESTAMIBI) 7.2-38.5 millicurie (1 source) Start: 09-04-2023 End: 09-04-2023 7.2-38.5 millicurie, Intravenous, ONCE, 1 dose, On Luiza 09/04/23 at 0915 Technetium tc 99m sestamibi (SESTAMIBI) 7.2-49.5 millicurie (1 source) Start: 09-04-2023 End: 09-04-2023 7.2-49.5 millicurie, Intravenous, ONCE, 1 dose, On Luiza 09/04/23 at 0915 warfarin sodium 5 mg oral tablet (8 sources) Vitamin K Antagonist Start: 03-12-2011 End: 12-27-2011 COUMADIN 5 MG TABS Take as directed, current dose 5mg daily WARFARIN SODIUM [id number] Jimmy Herrera MD Problems Active Problems Problem Classification Problem Date Documented Date Episodic/Chronic Administrative/socia l admission (5 sources) Patient encounter status; Translations: [Dietary counseling and surveillance] Onset: 12-02-2023 12-02-2023 Episodic Cardiac dysrhythmias (20 sources) Sick sinus syndrome; Translations: [Ventricular premature beats] Onset: 03-12-2011 03-12-2011 Chronic Comment on above: moodipsaw Diabetes mellitus with complications (3 sources) Hyperglycemia due to type 2 diabetes mellitus; Translations: [Type 2 diabetes mellitus with hyperglycemia] Onset: 01-05-2024 01-05-2024 Chronic Disorders of lipid metabolism (20 sources) Hyperlipidemia; Translations: [Hyperlipidemia, unspecified] Onset: 03-12-2011 03-12-2011 Chronic Essential hypertension (20 sources) Hypertensive disorder; Translations: [Essential hypertension] Onset: 03-12-2011 03-12-2011 Chronic Heart valve disorders (4 sources) Non-rheumatic mitral regurgitation ; Translations: [Nonrheumatic mitral (valve) insufficiency] Onset: 01-07-2024 01-07-2024 Chronic Influenza (5 sources) Influenza due to Influenza A virus subtype H1N1; Translations: [Influenza A (H1N1)] 04-20-2015 Episodic Comment on above: talka bout bacterial infectinos to call with.talk to who had flu shot so will callif have signs and symptoms right away Neoplasms of unspecified nature or uncertain behavior (20 sources) Myelodysplastic syndrome (clinical); Translations: [Myelodysplastic syndrome, unspecified] Onset: 10-28-2023 08-11-2023 Episodic Nutritional deficiencies (4 sources) Deficiency of macronutrients; Translations: [Unspecified severe protein-calorie malnutrition] Onset: 12-29-2023 12-02-2023 Chronic Other and ill-defined heart disease (15 sources) Asymptomatic left ventricular systolic dysfunction; Translations: [Heart disease, unspecified] Onset: 10-02-2023 10-02-2023 Chronic Other circulatory disease (7 sources) Abnormal chest sounds; Translations: [Abnormal lung sounds] 03-28-2015 Episodic Comment on above: better nowl cxr good spirometry good Other ear and sense organ disorders (2 sources) Sensorineural hearing loss, bilateral; Translations: [Sensorineural hearing loss, bilateral] Onset: 12-02-2023 12-02-2023 Chronic Other ear and sense organ disorders (1 source) Sensorineural hearing loss, bilateral; Translations: [Sensorineural hearing loss, bilateral] Onset: 12-02-2023 Chronic Other lower respiratory disease (16 sources) Cough; Translations: [Cough] 03-15-2013 Episodic Comment on above: adding claritin work really well. no mroe signs and symptoms Other nutritional; endocrine; and metabolic disorders (20 sources) Obese class I; Translations: [Obesity, unspecified] Onset: 06-24-2023 06-24-2023 Chronic Other nutritional; endocrine; and metabolic disorders (2 sources) Obesity, unspecified; Translations: [Obesity, unspecified] Onset: 06-24-2023 Chronic Other screening for suspected conditions (not mental disorders or infectious disease) (7 sources) Electrocardiogram abnormal; Translations: [Abnormal electrocardiogram [ECG] [EKG]] Onset: 09-04-2023 09-04-2023 Episodic Other upper respiratory infections (17 sources) Acute pharyngitis; Translations: [Acute sinusitis] 02-14-2015 Episodic Residual codes; unclassified (20 sources) Obstructive sleep apnea syndrome; Translations: [Obstructive sleep apnea on CPAP] Onset: 06-24-2023 03-15-2013 Chronic Residual codes; unclassified (2 sources) Obstructive sleep apnea (adult) (pediatric); Translations: [Obstructive sleep apnea (adult) (pediatric)] Onset: 06-24-2023 Chronic Unclassified (11 sources) Body mass index (BMI) 31.0-31.9, adult; Translations: [Body mass index (BMI) 33.0-33.9, adult] Onset: 08-30-2013 Resolved: 01-06-2015 03-02-2014 Chronic Unclassified (4 sources) Long-term drug therapy; Translations: [Other longterm (current) drug therapy] Onset: 07-01-2011 07-17-2015 Unclassified (1 source) Other ventricular tachycardia; Translations: [Other ventricular tachycardia] Onset: 09-04-2023 Past or Other Problems Problem Classification Problem Date Documented Da te Episodic/Chronic Deficiency and other anemia (2 sources) Nutritional anemia, unspecified; Translations: [Nutritional anemia, unspecified] Onset: 07-07-2023 Episodic Influenza (3 sources) Influenza Malaise and fatigue (2 sources) Fatigue; Translations: [Other fatigue] Onset: 03-12-2011 03-12-2011 Episodic Mood disorders (9 sources) Mood disorders Onset: 11-27-2023 Resolved: 12-02-2023 12-02-2023 Syncope (2 sources) Syncope and collapse; Translations: [Syncope and collapse] Onset: 03-12-2011 03-12-2011 Episodic Unclassified (8 sources) Family history of ischemic heart disease; Translations: [Edema] Onset: 03-12-2011 03-12-2011 Episodic Unclassified (20 sources) Unclassified (9 sources) Abnormal Lung Sounds/Rales (786.7) Unclassified (1 source) Patient encounter status; Translations: [Encounter for routine history and physical exam for male] 02-14-2015 Comment on above: scope due at 66 yo Unclassified (3 sources) SINUSITIS, ACUTE NOS (461.9) Unclassified (6 sources) Obstructive sleep apnea on CPAP (327.23) Unclassified (3 sources) Well Male Exam (V70.0) Unclassified (1 source) Other ventricular tachycardia; Translations: [Other ventricular tachycardia] Onset: 09-04-2023 Results Test Name Value Interpretation Reference Range Facility HLA BMT DONOR HIGH RESOLUTIO Non 01-19-2024 Tissue Typing Will Result SEE SCANNED RESULTS Normal [facility] Comment on above: Order Comment: Relea sed by TT lab ONLY Result Comment: Mane splantation Immunology Division [address], Room [address] [place], [place] [id number] Performed By: #### X M, ABORH #### [facility] (DEFAULT) [address] [place] [address] HLA BMT DONOR HIGH RESOLUTIO Non 01-13-2024 Tissue Typing Will Result SEE SCANNED RESULTS Normal [facility] Comment on above: Order Comment: Relea sed by TT lab ONLY Result Comment: [facility] spl[facility]ation Immunology Division [address], [address] [place], [place] [id number] Performed By: #### X M, ABORH #### [facility] (DEFAULT) [address] [place] [address] ECHOCARDIOGRAM LIMITED/FOLLO WUPon 01-07-2024 ECHOCARDIOGRAM LIMITED/FOLLOWUP Normal LV size and function, EF 57%. Normal RV size and function. Moderately severe LA dilation. Moderately severe eccentric MR. Moderate TR, RVSP 46 mm Hg. Table formatting from the original result was not included. Images from the original result were not included. Patient Information Patient Name Wm Shea Legal Sex Male Indication for Exam Priority: Routine Dx: PAF (paroxysmal atrial fibrillation) [I48.0 (ICD-10-CM)]; Essential hypertension [I10 (ICD-10-CM)]; Hyperlipidemia, unspecified hyperlipidemia type [E78.5 (ICD-10-CM)] Comments: Limited Echo Evaluate LV function / LVEF Interpretation Summary Result History is available. Normal LV size and function, EF 57%. Normal RV size and function. Moderately severe LA dilation. Moderately severe eccentric MR. Moderate TR, RVSP 46 mm Hg. Findings Left Ventricle Chamber size is normal. Normal wall thickness. Normal global systolic function. Regional wall motion is normal. Ejection fraction is normal (55 - 60%). Diastolic function is normal. Right Ventricle Chamber size is normal. Normal wall thickness. Segmental wall motion is normal. Systolic function is normal. Left Atrium Chamber size is moderately-severely enlarged. Right Atrium Chamber size is normal. Septum The atrial septum is normal. Mitral Valve Normal appearing leaflets. Leaflet mobility is normal. Moderate to severe eccentric regurgitation. No valve stenosis. Aortic Valve Trileaflet valve. Leaflet mobility is normal. No regurgitation. No stenosis. Tricuspid Valve Normal leaflets. Leaflet mobility is normal. Moderate regurgitation. No stenosis. Pulmonic Valve Normal structure. No regurgitation. No stenosis. Aorta No dilation to extent seen. Pericardium Appears normal. No pericardial effusion. Reading Providers Reading Role Read Date Daniel Christianson MD Echo [place] 01/07/2024 Left Heart Measurements LV - Systole LVIDD 5.34 cm IVS 1.1 cm LVIDS 3.92 cm PW 1.15 cm LV RWT 0.43 LV Mass Index 106.1 g/m2 LV EDV BP 152 mL LV ESV BP 66 mL BP EF 57 % LV stroke volume BP (ml) 86 mL LV stroke volume index BP 38.39 mL/m2 Long Strain -20.2 % LV - Diastole MV pk E taylor 0.88 m/s e' septal pk taylor 0.1 m/s e' lateral pk taylor 0.1 m/s Avg e' pk taylor 0.1 m/s E/e' septal ratio 8.44 E/e' lateral ratio 9 Avg E/e' ratio 8.72 Left Atrium LA ESV SP 4CH (MOD) 98 mL LA ESV SP 2CH (MOD) 87 mL LA ESV BP (MOD) index 43 mL/m2 Right Heart Measurements RV - 2D RV Area diastolic 20.71 cm2 RV Area systolic 11.14 cm2 RV Fractional area change 46.2 % RV - Doppler TAPSE 2.58 cm RV S' 12.06 cm/s Right Atrium EST RAP 8 mmHg Great Vessels Inferior Vena Cava IVC ostium 2.39 cm Doppler Measurements - Mitral Valve Stenosis MV pk E taylor 0.88 m/s MV stenosis pressure 1/2 time 87.12 ms MV valve area p 1/2 method 2.53 cm2 PISA-MS MV pk E taylor 0.88 m/s Doppler Measurements - Tricuspid Valve Stenosis IVC ostium 2.39 cm Regurgitation TR pk tayolr 2.93 m/s TR pk grad 34 mmHg EST RAP 8 mmHg EST RVSP 42 mmHg Vitals Height Weight BSA (Calculated - sq m) BP Pulse 1.803 m (5' 11 ) 104.3 kg (230 lb) 2.24 m2 61 Performing Staff Laura Maciel RDCS Study Details A limited echocardiography study (including color flow Doppler, limited spectral Doppler and left ventricular strain) was performed. Study limitations include patient body habitus. Imaging system used: [employer]. Indications Indications for study: atrial fib / atrial flutter. Exam Details Performed Procedure Technologist Supporting Staff Performing Physician ECHOCARDIOLGRAM LIMITED/FOLLOWUP OP STUDY DETAILS BILLING Laura Maicel RDCS Appointment Date/Status Modality Department 01/07/2024 Completed [place] [facility], [facility] ECHOCARDIOGRAPHY [place] Begin Exam End Exam 01/07/2024 8:47 AM 01/07/2024 9:27 AM Signed at 1047 EDT External Results Report There is an external results report available. Patient Release Status: This result is viewable by the patient in MyChart. ECHOCARDIOGRAM LIMITED/FOLLOWUP: Patient Communication Released Not seen ABN Associated with this Order There is no ABN associated with this order. Normal [facility] US Heart limitedOrdered By: Daniel Christianson on 01-07-2024 Avg e' pk taylor 0.10 m/s [facility] Work Phone: Avg E/e' ratio 8.72 [facility] Work Phone: Body surface area Derived from formula 2.24 m2 [facility] Work Phone: BP EF 57 % [facility] Work Phone: E wave decelartion time 300.43 msec [facility] Work [facility]: e' lateral pk taylor 0.0978 m/s [facility] Work Phone: e' lateral pk taylor 0.10 m/s [facility] Work Phone: e' septal pk taylor 0.1043 m/s [facility] Work Phone: e' septal pk taylor 0.10 m/s [facility] Work Phone: E/e' lateral ratio 9.00 [facility] Work Phone: E/e' septal ratio 8.44 [facility] Work Phone: EF SP 2CH 57 [facility] Work Phone[facility] EF SP 4CH 56 [facility] Work Phone: EST RAP 8.00 mmHg [facility] Work Phone: EST RVSP 42 mmHg [facility] Work Phone: FS 27 % [facility] Work Phone: IVC ostium 2.39 cm [facility] Work Phone: IVS 1.10 cm [facility] Work Phone: LA AREA 2CH 24.56 cm2 [facility] Work Phone: LA area 4CH 27.48 cm2 [facility] Work Phone: LA ESV BP (MOD) 96 mL [facility] Work Phone: LA ESV BP (MOD) index 43 mL/m2 [facility] Work Phone: LA ESV SP 2CH (MOD) 87 mL [facility] Work Phone: LA ESV SP 4CH (MOD) 98 mL [facility] Work Phone: Long Strain -20.2 % [facility] Work Phone: LV EDV BP 152 mL [facility] Work Phone: LV EDV SP 2CH 153 mL [facility] Work Phone: LV EDV SP 4CH 143 mL [facility] Work Phone: LV ESV BP 66 mL [facility] Work Phone: LV ESV SP 2CH 66 mL [facility] Work Phone: LV ESV SP 4CH 63 mL [facility] Work Phone: LV mass 237.70 g [facility] Work Phone: LV Mass Index 106.1 g/m2 [facility] Work Phone: LV RWT 0.43 [facility] Work Phone: LV stroke volume BP (ml) 86 mL [facility] Work Phone: LV stroke volume index BP 38.39 mL/m2 [facility] Work Phone: LVIDD 5.34 cm [facility] Work Phone: LVIDS 3.92 cm [facility] Work Phone: MV pk E taylor 0.88 m/s [facility] Work Phone: MV stenosis pressure 1/2 time 87.12 ms [facility] Work Phone: MV valve area p 1/2 method 2.53 cm2 [facility] Work Phone: [facility] LV BIPLANE SYSTOLIC VOLUME INDEX 29.46 mL/m2 [facility] Work Phone: [facility] LV BP DIASTOLIC VOLUME INDEX 67.86 mL/m2 [facility] Work Phone: PW 1.15 cm [facility] Work Phone: RV Area diastolic 20.71 cm2 [facility] Work Phone: RV Area systolic 11.14 cm2 [facility] Work Phone: RV Fractional area change 46.2 % [facility] Work Phone: RV S' 12.06 cm/s [facility] Work Phone: TAPSE 2.58 cm [facility] Work Phone: TR pk grad 34 mmHg [facility] Work Phone: TR pk taylor 2.93 m/s [facility] Work Phone: [facility] Work Phone: [facility] 4 Normal LV size and function, EF 57%. Normal RV size and function. Moderately severe LA dilation. Moderately severe eccentric MR. Moderate TR, RVSP 46 mm Hg. Left Ventricle Chamber size is normal. Normal wall thickness. Normal global systolic function. Regional wall motion is normal. Ejection fraction is normal (55 - 60%). Diastolic function is normal. Right Ventricle Chamber size is normal. Normal wall thickness. Segmental wall motion is normal. Systolic function is normal. Left Atrium Chamber size is moderately-severely enlarged. Right Atrium Chamber size is normal. Mitral Valve Normal appearing leaflets. Leaflet mobility is normal. Moderate to severe eccentric regurgitation. No valve stenosis. Tricuspid Valve Normal leaflets. Leaflet mobility is normal. Moderate regurgitation. No stenosis. Aortic Valve Trileaflet valve. Leaflet mobility is normal. No regurgitation. No stenosis. Pulmonic Valve Normal structure. No regurgitation. No stenosis. Pericardium Appears normal. No pericardial effusion. Septum The atrial septum is normal. Aorta No dilation to extent seen. Study Details A limited echocardiography study (including color flow Doppler, limited spectral Doppler and left ventricular strain) was performed. Study limitations include patient body habitus. Imaging system used: [employer]. Indications Indications for study: atrial fib / atrial flutter. [facility] Radiology Study observation (narrative) [facility] DNA EXTRACTION, [id number] y: Wm Bowens on 12-30-2023 [facility] HEMATOLOGIC NEOPLASM MUTATIO N PANEL, BONE MARROW OR BLOODOrdered By: Cam Christianson on 12-30-2023 Receiving Status Accessioned in Lab [facility] HLA BMT DONOR HIGH RESOLUTIO Non 12-30-2023 Tissue Typing Will Result SEE SCANNED RESULTS Normal [facility] Comment on above: Order Comment: Relea sed by TT lab ONLYTransplantation Immunology Division[address], [address] [place], [place] [id number] Performed By: #### P 3J #### [facility] (DEFAULT) [address] [address] ABO/RH(D) TYPINGon 4 ABO/RH(D) TYPE Positive [facility] Comment on above: @12/29/23 17:42 by T NT: [facility] ABO/RH(D) TYPE Positive Normal [facility] Comment on above: Result Comment: @ 17:42 by LEISA: Performed By: #### X M, ABORH #### [facility] (DEFAULT) [address] [address] BONE MARROW ASPIRATE AND BIO PSYon 12-29-2023 [facility] Radiology Study observation (narrative) [facility] BONE MARROW,BASIC (ASP,BX,FE )Ordered By: Emanuel Burns on 12-29-2023 Specimen Status Specimen received in lab, results to follow on Surg Path report. [facility] BONE MARROW,BASIC (ASP,BX,FE )on 12-29-2023 Specimen Status Specimen received in lab, results to follow on Surg Path report. Normal [facility] Comment on above: Performed By: #### P 3J #### [facility] (DEFAULT) [address] [place], [place] [id number] CBC AND ELECTRONIC DIFFon Basophils (Bld) [#/Vol] K/uL 0.00 - 0.09 K/uL [facility] Basophils/100 WBC (Bld) 0.0 % [facility] Differential cell count method Nom (Bld) Electronic Differential [facility] Eosinophils (Bld) [#/Vol] 0.18 10*3/uL 0.00 - 0.48 K/uL [facility] Eosinophils/100 WBC (Bld) 7.0 % [facility] Erythrocyte distribution width (RBC) [Ratio] 16.1 % High 10.9 - 14.3 % [facility] Hematocrit (Bld) [Volume fraction] 25.1 % Low 39.6 - 48.8 % [facility] Hemoglobin (Bld) [Mass/Vol] 8.6 g/dL Low 13.4 - 16.8 g/dL [facility] Immature granulocytes (Bld) [#/Vol] K/uL NINF - 0.07 K/uL [facility] Immature granulocytes/100 WBC (Bld) 1.2 % [facility] Interpretation and review of laboratory results Abnormal [facility] Lymphocytes (Bld) [#/Vol] 1.35 10*3/uL 0.83 - 3.57 K/uL [facility] Lymphocytes/100 WBC (Bld) 52.5 % [facility] MCH (RBC) [Entitic mass] 31.0 pg 26.1 - 33.3 pg [facility] MCHC (RBC) [Mass/Vol] 34.3 g/dL 31.9 - 36.5 g/dL [facility] MCV (RBC) [Entitic vol] 90.6 fL 79.0 - 94.5 fL [facility] Monocytes (Bld) [#/Vol] 0.09 10*3/uL Low 0.24 - 0.93 K/uL [facility] Monocytes/100 WBC (Bld) 3.5 % [facility] Neutrophils (Bld) [#/Vol] 0.92 10*3/uL Low 1.57 - 6.19 K/uL [facility] Nucleated RBC/100 WBC (Bld) [Ratio] 0.0 % NINF [facility] Platelet mean volume (Bld) [Entitic vol] 12.2 fL 8.7 - 12.3 fL [facility] Platelets (Bld) [#/Vol] 76 10*3/uL Low 146 - 337 K/uL [facility] RBC (Bld) [#/Vol] 2.77 10*6/uL Low [facility] Segmented neutrophils/100 WBC (Bld) 35.8 % [facility] WBC (Bld) [#/Vol] 2.57 10*3/uL Low 3.73 - 10.10 K/uL [facility] Abs Baso Auto < Normal 0.00-0.09 [facility] Comment on above: Performed By: #### Koki M, ABORH #### [facility] (DEFAULT) [address] [address] Basophils/100 WBC (Bld) 0.0 % Normal [facility] Comment on above: Performed By: #### Koki Arellano, ABORH #### [facility] (DEFAULT) [address] [address] DIFF STATUS Electronic Differential Normal [facility] Comment on above: Performed By: #### X M, ABORH #### [facility] (DEFAULT) [address] [address] Eosinophils (Bld) [#/Vol] 0.18 10*3/uL Normal 0.00-0.48 [facility] Comment on above: Performed By: #### X M, ABORH #### [facility] (DEFAULT) [address] [place] [address] Eosinophils/100 WBC (Bld) 7.0 % Normal [facility] Comment on above: Performed By: #### X M, ABORH #### [facility] (DEFAULT) [address] [place] [address] Hematocrit (Bld) [Volume fraction] 25.1 % Low 39.6-48.8 [facility] Comment on above: Performed By: #### X M, ABORH #### [facility] (DEFAULT) [address] [place] [address] Hemoglobin (Bld) [Mass/Vol] 8.6 g/dL Low 13.4-16.8 [facility] Comment on above: Performed By: #### X M, ABORH #### [facility] (DEFAULT) [address] [place] [address] Immature Grans % 1.2 % Normal [facility] Comment on above: Performed By: #### X M, ABORH #### [facility] (DEFAULT) [address] [place] [address] Immature Grans Absolute < Normal <=0.07 [facility] Comment on above: Performed By: #### X M, ABORH #### [facility] (DEFAULT) [address] [place] [address] Lymphocytes (Bld) [#/Vol] 1.35 10*3/uL Normal 0.83-3.57 [facility] Comment on above: Performed By: #### X M, ABORH #### [facility] (DEFAULT) [address] [place] [address] Lymphocytes/100 WBC (Bld) 52.5 % Normal [facility] Comment on above: Performed By: #### X M, ABORH #### [facility] (DEFAULT) [address] [place] [address] MCV (RBC) [Entitic vol] 90.6 fL Normal 79.0-94.5 [facility] Comment on above: Performed By: #### X M, ABORH #### [facility] (DEFAULT) [address] [place] [address] Mean Cell Hgb 31.0 pg Normal 26.1-33.3 [facility] Comment on above: Performed By: #### Koki M, ABORH #### [facility] (DEFAULT) [address] [place] [address] Mean Cell Hgb Conc 34.3 g/dL Normal 31.9-36.5 [facility] Comment on above: Performed By: #### Koki Arellano, ABORH #### [facility] (DEFAULT) [address] [place] [address] Monocytes (Bld) [#/Vol] 0.09 10*3/uL Low 0.24-0.93 [facility] Comment on above: Performed By: #### Koki Arellano, ABORH #### [facility] (DEFAULT) [address] [place] [address] Monocytes/100 WBC (Bld) 3.5 % Normal [facility] Comment on above: Performed By: #### Koki Arellano, ABORH #### [facility] (DEFAULT) [address] [place] [address] Nucleated RBC 0.0 /100 WBC Normal <=0.2 [facility] Comment on above: Performed By: #### Koki M, ABORH #### [facility] (DEFAULT) [address] [place] [address] Platelet mean volume (Bld) [Entitic vol] 12.2 fL Normal 8.7-12.3 [facility] Comment on above: Performed By: #### Koki M, ABORH #### [facility] (DEFAULT) [address] [place] [address] Platelets (Bld) [#/Vol] 76 10*3/uL Low 146-337 [facility] Comment on above: Performed By: #### X M, ABORH #### [facility] (DEFAULT) [address] [place] [address] RBC (Bld) [#/Vol] 2.77 10*6/uL Low 4.38-5.83 [facility] Comment on above: Performed By: #### X M, ABORH #### [facility] (DEFAULT) [address] [place] [address] RBC Distribution 16.1 % High 10.9-14.3 [facility] Comment on above: Performed By: #### X M, ABORH #### [facility] (DEFAULT) [address] [place] [address] Segs + Bands Auto 35.8 % Normal [facility] Comment on above: Performed By: #### X M, ABORH #### [facility] (DEFAULT) [address] [place] [address] Segs + Bands,Absolute Auto 0.92 K/uL Low 1.57-6.19 [facility] Comment on above: Performed By: #### X M, ABORH #### [facility] (DEFAULT) [address] [place] [address] WBC (Bld) [#/Vol] 2.57 10*3/uL Low 3.73-10.10 [facility] Comment on above: Performed By: #### X M, ABORH #### [facility] (DEFAULT) [address] [place] [address] COMPREHENSIVE METABOLIC PANE Joey 12-29-2023 Albumin [Mass/Vol] 4.1 g/dL 3.5 - 5.0 g/dL [facility] ALP [Catalytic activity/Vol] 65 U/L 32 - 126 U/L [facility] ALT [Catalytic activity/Vol] 39 U/L 10 - 52 U/L [facility] Anion gap [Moles/Vol] 9 mmol/L 7 - 17 mmol/L [facility] AST [Catalytic activity/Vol] 31 U/L 10 - 39 U/L [facility] Bilirubin [Mass/Vol] 0.5 mg/dL NINF - 1.5 mg/dL [facility] Calcium [Mass/Vol] 9.2 mg/dL 8.6 - 10. 5 mg/dL [facility] Chloride [Moles/Vol] 108 mmol/L 98 - 10 8 mmol/L [facility] CO2 [Moles/Vol] 25 mmol/L 21 - 31 mmol/L [facility] Creatinine [Mass/Vol] 0.81 mg/dL 0.70 - 1.30 mg/dL [facility] eGFR, CKD-EPI, Male - PINF [facility] Comment on above: Reported eGFR is bas ed on the CKD-EPI 2020 equation using creatinine, age, and sex. Glucose [Mass/Vol] 91 mg/dL 70 - 99 mg/dL [facility] Osmolality Calc [Osmolality] 291 [facility] Potassium [Moles/Vol] 4.3 mmol/L 3.5 - 5.0 mmol/L [facility] Protein [Mass/Vol] 6.7 g/dL 6.4 - 8.3 g/dL [facility] Sodium [Moles/Vol] 138 mmol/L 135 - 145 mmol/L [facility] Urea nitrogen [Mass/Vol] 18 mg/dL 7 - 25 mg/dL [facility] Urea nitrogen/Creatinine [Mass ratio] 22 mg/mg [facility] Albumin [Mass/Vol] 4.1 g/dL Normal 3.5-5.0 [facility] Comment on above: Performed By: #### P 3J #### [facility] (DEFAULT) [address] [place] [address] ALP [Catalytic activity/Vol] 65 U/L Normal 32-126 [facility] Comment on above: Performed By: #### P 3J #### [facility] (DEFAULT) [address] [place] [address] ALT [Catalytic activity/Vol] 39 U/L Normal 10-52 [facility] Comment on above: Performed By: #### P 3J #### [facility] (DEFAULT) [address] [place] [address] Anion gap [Moles/Vol] 9 mmol/L Normal 7-17 [facility] Comment on above: Performed By: #### P 3J #### [facility] (DEFAULT) [address] [place] [address] AST [Catalytic activity/Vol] 31 U/L Normal 10-39 [facility] Comment on above: Performed By: #### P 3J #### [facility] (DEFAULT) [address] [place] [address] Bilirubin [Mass/Vol] 0.5 mg/dL Normal <1.5 [facility] Comment on above: Performed By: #### P 3J #### [facility] (DEFAULT) [address] [place] [address] Calcium [Mass/Vol] 9.2 mg/dL Normal 8.6-10.5 [facility] Comment on above: Performed By: #### P 3J #### [facility] (DEFAULT) [address] [place] [address] Chloride [Moles/Vol] 108 mmol/L Normal 98-108 [facility] Comment on above: Performed By: #### P 3J #### [facility] (DEFAULT) [address] [place] [address] CO2 [Moles/Vol] 25 mmol/L Normal 21-31 [facility] Comment on above: Performed By: #### P 3J #### [facility] (DEFAULT) [address] [place] [address] Creatinine [Mass/Vol] 0.81 mg/dL Normal 0.70-1.30 [facility] Comment on above: Performed By: #### P 3J #### [facility] (DEFAULT) [address] [place] [address] eGFR, CKD-EPI, Male > Normal >=60 [facility] Comment on above: Result Comment: Repo rted eGFR is based on the CKD-EPI 2020 equation using creatinine, age, and sex. Performed By: #### P 3J #### [facility] (DEFAULT) [address] [place] [address] Glucose [Mass/Vol] 91 mg/dL Normal 70-99 [facility] Comment on above: Performed By: #### P 3J #### [facility] (DEFAULT) [address] [place] [address] Osmolality [Osmolality] 291 mosm/kg Normal 278-305 [facility] Comment on above: Performed By: #### P 3J #### [facility] (DEFAULT) [address] [place] [address] Potassium [Moles/Vol] 4.3 mmol/L Normal 3.5-5.0 [facility] Comment on above: Performed By: #### P 3J #### [facility] (DEFAULT) [address] [place] [address] Protein [Mass/Vol] 6.7 g/dL Normal 6.4-8.3 [facility] Comment on above: Performed By: #### P 3J #### [facility] (DEFAULT) [address] [place] [address] Sodium [Moles/Vol] 138 mmol/L Normal 135-145 [facility] Comment on above: Performed By: #### P 3J #### [facility] (DEFAULT) [address] [place] [address] Urea nitrogen [Mass/Vol] 18 mg/dL Normal 7-25 [facility] Comment on above: Performed By: #### P 3J #### [facility] (DEFAULT) [address] [place] [address] Urea nitrogen/Creatinine [Mass ratio] 22 mg/mg Normal [facility] Comment on above: Performed By: #### P 3J #### [facility] (DEFAULT) [address] [address] CYTOGENETIC STUDIES (PERFORM ABLE)on 12-29-2023 Band Level 400 Normal [facility] Comment on above: Order Comment: Bulmaro lobato do not use this order for add-ons Place sample for CYTOGENETICS in Sodium (NA) heparin tube.Please do not use this order for add-ons Place sample for CYTOGENETICS in Sodium (NA) heparin tube. Performed By: #### X M #### [facility] (DEFAULT) [address] [address] Clinical History Myelodysplastic Syndrome Normal [facility] Comment on above: Order Comment: Bulmaro lobato do not use this order for add-ons Place sample for CYTOGENETICS in Sodium (NA) heparin tube.Please do not use this order for add-ons Place sample for CYTOGENETICS in Sodium (NA) heparin tube. Performed By: #### X M #### [facility] (DEFAULT) [address] [address] Culture Method: Normal [facility] Comment on above: Order Comment: Bulmaro lobato do not use this order for add-ons Place sample for CYTOGENETICS in Sodium (NA) heparin tube.Please do not use this order for add-ons Place sample for CYTOGENETICS in Sodium (NA) heparin tube. Result Comment: Proc ess: 1 Duration: 24 Hr Media: Marrow Max Mitogen: None Banding: GTW Colcemid: 30 min Number of cells: 10 Process: 2 Duration: 24 Hr Media: Crane Mitogen: None Banding: GTW Colcemid: 30 min Number of cells: 10 Chromosome Count Analysis 43 1 44 2 45 3 46 14 Total 20 Total number of cells karyotyped: 20 Performed By: #### X M #### [facility] (DEFAULT) [address] [address] Interpretation Normal [facility] Comment on above: Order Comment: Bulmaro lobato do not use this order for add-ons Place sample for CYTOGENETICS in Sodium (NA) heparin tube.Please do not use this order for add-ons Place sample for CYTOGENETICS in Sodium (NA) heparin tube. 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 This abnormality has been seen in previous samples obtained from this patient, indicating continuing disease in the patient's marrow. Due to the limitations of this analysis, these results do not rule out the presence of subtle chromosomal abnormalities or additional abnormalities that could exist in a low proportion of cells. 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 Performed By: #### X M #### [facility] (DEFAULT) [address] [place] [address] Specimen Received Bone Marrow Aspirate obtained 12/29/23 Normal [facility] Comment on above: Order Comment: Bulmaro lobato do not use this order for add-ons Place sample for CYTOGENETICS in Sodium (NA) heparin tube.Please do not use this order for add-ons Place sample for CYTOGENETICS in Sodium (NA) heparin tube. Performed By: #### X M #### [facility] (DEFAULT) [address] [place] [address] HEMATOLOGIC NEOPLASM MUTATIO N PANEL, BONE MARROW OR BLOODon 12-29-2023 Receiving Status Accessioned in Lab Normal [facility] Comment on above: Performed By: #### X M #### [facility] (DEFAULT) [address] [place] [address] HEMOGLOBIN A1Con 12-29-2023 Average glucose Estimated from glycated hemoglobin (Bld) [Mass/Vol] 154 mg/dL [facility] HbA1c (Bld) [Mass fraction] 7.0 % High 4.7 - 5.6 % [facility] Interpretation and review of laboratory results Abnormal [facility] Glucose [Mass/Vol] 154 mg/dL Normal [facility] Comment on above: Performed By: #### P 3J #### [facility] (DEFAULT) [address] [address] Hemoglobin A1C HPLC 7.0 % High 4.7-5.6 [facility] Comment on above: Performed By: #### P 3J #### [facility] (DEFAULT) [address] [address] IMMUNOPHENOTYPINGon 12-29-19 BKR DX CODE Use Ordering Normal [facility] Comment on above: Performed By: #### P 3J #### [facility] (DEFAULT) [address] [address] Flow Interpreted by: Andrea Bauer MD [facility] Comment on above: Performed By: #### P 3J #### [facility] (DEFAULT) [address] [address] IMMUNOPHENOTYPING FLOW See Scanned Result Normal [facility] Comment on above: Performed By: #### P 3J #### [facility] (DEFAULT) [address] [address] SAMPLE TYPE Bone Marrow Normal [facility] Comment on above: Performed By: #### P 3J #### [facility] (DEFAULT) [address] [address] SURG PATH REQUESTon 12-29-19 Case Report Normal [facility] Comment on above: Result Comment: Surg ical Pathology Report Case: [id number] Authorizing Provider: Ksenia Allen, Collected: 12/29/2023 02:34 PM [employer] PROGRAM COORDINATOR Ordering Location: [facility] Received: 12/29/2023 03:18 PM Pathologist: Andrea Bauer II, MD, PhD Specimens: A) - BONE MARROW BIOPSY B) - Bone marrow clot Performed By: #### X M, ABORH #### [facility] (DEFAULT) [address] [address] Clinical History Clinical History: MDS. 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 The patient is currently on chemotherapy. Rare blasts are detected by flow cytometry (1% with abnormal phenotype) and CD34 stain (1%). Clinical correlation with cytogenetic/FISH and/or molecular studies is recommended. Performed By: #### X M, ABORH #### [facility] (DEFAULT) [address] [address] Gross Description Normal [facility] Comment on above: Result Comment: The specimens are received in two properly labeled containers with the patient's name and accession number. A. The specimen is designated bm bx R and consists of two white-holguin, cylindrical tissue cores 0.8 cm and 0.9 cm in length, respectively, each with a diameter of 0.2 cm. TE 1 Note: Cassette A1 will be ready following decalcification. B. The specimen is designated bm clot R and consists of a less than 0.2 cm aggregate of dark red clotted blood. TE 1 Note: The specimen may not survive processing. Lab Use Only: JobID [id number] Grosser for this case was: Tricia Mccabe Performed By: #### X M, ABORH #### [facility] (DEFAULT) [address] [address] Microscopic Description Normal [facility] Comment on above: Result Comment: A mi croscopic examination was performed. BONE MARROW REPORT The following specimens were interpreted to arrive at the above diagnosis: peripheral blood smear, bone marrow aspirate, decalcified trephine biopsy, iron stain CBC data and smear review (200 cells): WBC: 2.57 x K/uL; Hgb: 8.6 g/dL; Hct: 25.1%; MCV: 90.6 fl; RDW: 16.1%; Plt: 76 K/uL Manual differential: neutrophils 33%, lymphocytes 57%, monocytes 4%, eosinophils 6%, basophils 0%, nRBCs 1%. Blood smear findings: Review of the peripheral blood shows pancytopenia with neutropenia. Rare (<1%) atypical cell. Moderate anemia with mild anisocytosis. Moderate thrombocytopenia with unremarkable morphology. Aspirate smear quality: The aspirates are hypospicular, hypocellular, and hemodilute. The staining is adequate. Bone marrow aspirate smear differential (Limited 200 cells): Blasts: 0% Promyelocytes: 2% Myelocytes: 14% Metamyelocytes: 1% Bands/Neutrophils: 37% Lymphocytes: 33% Monocytes: 4% Eosinophils: 7% Basophils: 0% Erythroid: 2% Plasma cells: 0% M:E Ratio: The myeloid to erythroid ratio is 30:1. Erythropoiesis: Decreased. Morphology cannot be evaluated due to the paucity of erythroid precursors. Granulopoiesis: Adequate. Progression to mature forms is noted. Blasts are not increased, and dysplasia is not evident. Megakaryocytes: Megakaryocytes are essentially absent on aspirate. Morphology cannot be evaluated. Lymphocytes/plasma cells: The lymphocytes and plasma cells are not increased and show unremarkable morphology. Iron stain: Iron staining cannot be evaluated due to the lack of spicules. Evaluation for ring sideroblasts cannot be performed due to the paucity of erythroid precursors. The iron control shows appropriate reactivity. Biopsy and clot findings: The biopsy is adequate for evaluation, although with aspiration and crush effect. The bone marrow shows a variable (30-70%) cellularity of 50-60% overall. The bone trabeculae are unremarkable. There is increased granulopoiesis, decreased erythropoiesis, and decreased megakaryopoiesis. CD34 and CD117 stains 1% of cellularity as blasts. E cadherin is negative. Flow cytometric analysis (marrow aspirate): See separate report. Immunophenotypic analysis demonstrates an abnormal blast population (1.3%). Correlation with bone marrow morphology and cytogenetic/molecular studies is recommended. There is no immunophenotypic evidence of an abnormal population of B lymphocytes. The CD4:CD8 ratio is within normal limits, but with a small subset with dim CD5. Additional investigation may be performed if this persists, as immune modulation/treatment may cause temporary T cell abnormalities. Clinical correlation is recommended. Cytogenetics/FISH and Molecular Studies: Performed and resulted in a separate report. *The above report complies, in slightly modified form, with the guidelines of the [employer] [place] [employer] for the reporting of cancer specimens. *Hematopoietic neoplasms are classified according to: - WHO Classification of Tumours Editorial Board. Haematolymphoid tumours. Ghotra (Lilian): International Agency for Research on Cancer; (WHO classification of tumours series, 5th ed.; vol. 11, 2021). https://publications.iarc.fr. - The International Consensus Classification of Mature Lymphoid Neoplasms: a report from the Clinical Advisory Committee. Blood. 2021Jan 24;140(11):2426-4193. doi: 10.1182/blood.0714465974. Erratum in: Blood. 2022Jun 06;141(4):437. PMID: 35162582; PMCID: CZO6125093. -International Consensus Classification of Myeloid Neoplasms and Acute Leukemias: integrating morphologic, clinical, and genomic data. Blood. 2021Jan 24;140(11):5841-0046. doi: 10.1182/blood.1806615610. PMID: 88069353; PMCID: SVP6908908. All controls show appropriate reactivity. All immunohistochemistry, in situ hybridization and histochemical tests were developed by and are performed at the [facility], [facility]. All tests reported here, except those addressing HER2, ALK and PD-L1 expression as a predictive marker, have not been cleared by or approved by the FDA. The laboratory is regulated under CLIA as qualified to perform high-complexity testing. The tests are used for clinical purposes. They should not be regarded as investigational or for research. Performed By: #### X M, ABORH #### [facility] (DEFAULT) [address] [place] [address] Pathologic Diagnosis Normal [facility] Comment on above: Result Comment: A. B one marrow, right, biopsy, aspirate, and peripheral blood smear: Rare myeloid blasts (1%) with aberrant expression, consistent with persistent myeloid neoplasm, see comment. Variably (30-70%) hypercellular (50-60% overall) bone marrow with increased granulopoiesis, decreased erythropoiesis, and decreased megakaryopoiesis. B. Bone marrow, right, clot: Scant tissue, not survived processing. Performed By: #### X M, ABORH #### [facility] (DEFAULT) [address] [place] [address] Professional Interpretation Performed at: Normal [facility] Comment on above: Result Comment: [facility] For Immediate Release to Patient's MyChart? Yes [address] [address] Performed By: #### X M, ABORH #### [facility] (DEFAULT) [address] [place] [address] TYPE AND SCREENon 12-29-2023 Outdate Specimen 01/01/2024 23:59 [facility] Outdate Specimen 01/01/2024 23:59 Normal [facility] Comment on above: Performed By: #### X M, ABORH #### [facility] (DEFAULT) [address] [place] [address] VITAMIN D (25-HYDROXY,TOTAL) on 12-29-2023 Interpretation and review of laboratory results Normal [facility] Vitamin D+Metabolites [Mass/Vol] 30.6 ng/mL 30.0 - 100.0 ng/mL [facility] Comment on above: <10 Deficiency 10-29 Insufficiency 30-100 Optimal Level >100 Possible Toxicity Vitamin D values hav e been shown to be falsely decreased in lipemic samples and should be interpreted with caution. [facility] 25-OH Vitamin D Total 30.6 ng/mL Normal 30.0-100.0 [facility] Comment on above: Order Comment: Vitam in D values have been shown to be falsely decreased in lipemic samples and should be interpreted with caution. Result Comment: <10 Deficiency 10-29 Insufficiency 30-100 Optimal Level >100 Possible Toxicity Performed By: #### X M #### [facility] (DEFAULT) [address] [place] [address] HLA BMT DONOR HIGH RESOLUTIO Non 12-19-2023 Tissue Typing Will Result SEE SCANNED RESULTS Normal [facility] Comment on above: Order Comment: Relea sed by TT lab ONLY Result Comment: Mane splantation Immunology Division [address], Room [address] [place] [phone] Performed By: #### X GRADY Arellano #### [facility] (DEFAULT) [address] [place] [address] HLA CONFIRMATORY TYPINGon Tissue Typing Will Result SEE SCANNED RESULTS [facility] Comment on above: Transplantation Immu nology Division [address], Room [address] [facility] [phone] [facility] HLA TYPING (BMT)Ordered By: Tricia Wilkerson on 12-05-2023 Tissue Typing Will Result SEE SCANNED RESULTS [facility] Comment on above: Transplantation Imm nology Division [address], Room [address] [place] [phone] [facility] AUDIOGRAM (SCANNED)on 2023 [facility] Radiology Study observation (narrative) [facility] PRA CLASS (PRE-TRANSPLANT)on 12-02-2023 AB SPECIFICITY CLASS COMMENT Antibody Specificity testing performed by [facility]. cPRA calculation based on identification of HLA antibody specificities at MFI >2000 and/or presence of CREG antibodies. [facility] Comment on above: Some of the reagents used for testing in the Clinical Histocompatibility Laboratory have yet to be approved by the FDA. Our certification by CLIA to perform high complexity tests allows us to use these reagents in the context of a stringent QC program, and obviates the need for FDA approval.Testing performed by the [facility] Clinical Histocompatibility Laboratory. [facility] number: [id number]. CLIA number: [id number], Director: Butch Farrell, PhD, F([facility]). CLASS I SPECIFICITIES Not detected [facility] CLASS II SPECIFICITIES Not detected [facility] HLA Ab (S) 0 % 0 [facility] CMV IGG ABon 11-28-2023 CMV IgG Ql Negative Negative [facility] Interpretation and review of laboratory results Normal [facility] TT SAMPLEon 11-28-2023 TISSUE TYPING SAMPLE Specimen Received [facility] CMV IGG ABon 11-27-2023 CMV IgG Antibody Negative Normal Negative [facility] Comment on above: Performed By: #### X M, ABORH #### [facility] (DEFAULT) [address] [place] [address] COMPREHENSIVE METABOLIC PANE Joey 11-27-2023 Albumin [Mass/Vol] 4.2 g/dL 3.5 - 5.0 g/dL [facility] ALP [Catalytic activity/Vol] 68 U/L 32 - 126 U/L [facility] ALT [Catalytic activity/Vol] 26 U/L 10 - 52 U/L [facility] Anion gap [Moles/Vol] 12 mmol/L 7 - 17 mmol/L [facility] AST [Catalytic activity/Vol] 26 U/L 10 - 39 U/L [facility] Bilirubin [Mass/Vol] 0.5 mg/dL NINF - 1.5 mg/dL [facility] Calcium [Mass/Vol] 8.9 mg/dL 8.6 - 10. 5 mg/dL [facility] Chloride [Moles/Vol] 106 mmol/L 98 - 10 8 mmol/L [facility] CO2 [Moles/Vol] 25 mmol/L 21 - 31 mmol/L [facility] Creatinine [Mass/Vol] 1.04 mg/dL 0.70 - 1.30 mg/dL [facility] eGFR, CKD-EPI, Male 77 - PINF [facility] Comment on above: Reported eGFR is bas ed on the CKD-EPI 2020 equation using creatinine, age, and sex. Glucose [Mass/Vol] 90 mg/dL 70 - 99 mg/dL [facility] Osmolality Calc [Osmolality] 294 [facility] Potassium [Moles/Vol] 4.7 mmol/L 3.5 - 5.0 mmol/L [facility] Protein [Mass/Vol] 7.1 g/dL 6.4 - 8.3 g/dL [facility] Sodium [Moles/Vol] 138 mmol/L 135 - 145 mmol/L [facility] Urea nitrogen [Mass/Vol] 25 mg/dL 7 - 25 mg/dL [facility] Urea nitrogen/Creatinine [Mass ratio] 24 mg/mg [facility] Albumin [Mass/Vol] 4.2 g/dL Normal 3.5-5.0 [facility] Comment on above: Performed By: #### C MPN #### [facility] (DEFAULT) [address] [place] [address] ALP [Catalytic activity/Vol] 68 U/L Normal 32-126 [facility] Comment on above: Performed By: #### C MPN #### [facility] (DEFAULT) [address] [place] [address] ALT [Catalytic activity/Vol] 26 U/L Normal 10-52 [facility] Comment on above: Performed By: #### C MPN #### [facility] (DEFAULT) [address] [place] [address] Anion gap [Moles/Vol] 12 mmol/L Normal 7-17 [facility] Comment on above: Performed By: #### C MPN #### [facility] (DEFAULT) [address] [place] [address] AST [Catalytic activity/Vol] 26 U/L Normal 10-39 [facility] Comment on above: Performed By: #### C MPN #### [facility] (DEFAULT) [address] [place] [address] Bilirubin [Mass/Vol] 0.5 mg/dL Normal <1.5 [facility] Comment on above: Performed By: #### C MPN #### [facility] (DEFAULT) [address] [place] [address] Calcium [Mass/Vol] 8.9 mg/dL Normal 8.6-10.5 [facility] Comment on above: Performed By: #### C MPN #### [facility] (DEFAULT) [address] [place] [address] Chloride [Moles/Vol] 106 mmol/L Normal 98-108 [facility] Comment on above: Performed By: #### C MPN #### [facility] (DEFAULT) [address] [place] [address] CO2 [Moles/Vol] 25 mmol/L Normal 21-31 [facility] Comment on above: Performed By: #### C MPN #### [facility] (DEFAULT) [address] [place] [address] Creatinine [Mass/Vol] 1.04 mg/dL Normal 0.70-1.30 [facility] Comment on above: Performed By: #### C MPN #### [facility] (DEFAULT) [address] [place] [address] GFR/1.73 sq M.predicted among non-blacks MDRD (S/P/Bld) [Vol rate/Area] 76 mL/min/{1.73_m2} Normal >=60 [facility] Comment on above: Result Comment: Repo rted eGFR is based on the CKD-EPI 2020 equation using creatinine, age, and sex. Performed By: #### C MPN #### [facility] (DEFAULT) [address] [place] [address] Glucose [Mass/Vol] 90 mg/dL Normal 70-99 [facility] Comment on above: Performed By: #### C MPN #### [facility] (DEFAULT) [address] [place] [address] Osmolality [Osmolality] 294 mosm/kg Normal 278-305 [facility] Comment on above: Performed By: #### C MPN #### [facility] (DEFAULT) [address] [place] [address] Potassium [Moles/Vol] 4.7 mmol/L Normal 3.5-5.0 [facility] Comment on above: Performed By: #### C MPN #### [facility] (DEFAULT) [address] [address] Protein [Mass/Vol] 7.1 g/dL Normal 6.4-8.3 [facility] Comment on above: Performed By: #### C MPN #### [facility] (DEFAULT) [address] [address] Sodium [Moles/Vol] 138 mmol/L Normal 135-145 [facility] Comment on above: Performed By: #### C MPN #### [facility] (DEFAULT) [address] [address] Urea nitrogen [Mass/Vol] 25 mg/dL Normal 7-25 [facility] Comment on above: Performed By: #### C MPN #### [facility] (DEFAULT) [address] [address] Urea nitrogen/Creatinine [Mass ratio] 24 mg/mg Normal [facility] Comment on above: Performed By: #### C MPN #### [facility] (DEFAULT) [address] [address] HLA CONFIRMATORY TYPINGon Tissue Typing Will Result SEE SCANNED RESULTS Normal [facility] Comment on above: Result Comment: Mane splantation Immunology Division [address], [address] [place] [phone] Performed By: #### H LACTT #### [facility] (DEFAULT) [address] [address] Performed By: #### X M, ABORH #### [facility] (DEFAULT) [address] [address] PRA CLASS (PRE-TRANSPLANT)on 11-27-2023 AB SPECIFICITY CLASS COMMENT Antibody Specificity testing performed by [facility]. cPRA calculation based on identification of HLA antibody specificities at MFI >2000 and/or presence of CREG antibodies. Normal [facility] Comment on above: Result Comment: Some of the reagents used for testing in the Clinical Histocompatibility Laboratory have yet to be approved by the FDA. Our certification by CLIA to perform high complexity tests allows us to use these reagents in the context of a stringent QC program, and obviates the need for FDA approval.Testing performed by the [facility] Clinical Histocompatibility Laboratory. [facility] number: [id number]. CLIA number: [id number], Director: Butch Farrell, PhD, F([facility]). Performed By: #### X M #### [facility] (DEFAULT) [address] [address] CLASS I SPECIFICITIES Not detected Normal [facility] Comment on above: Performed By: #### X M #### [facility] (DEFAULT) [address] [address] CLASS II SPECIFICITIES Not detected Normal [facility] Comment on above: Performed By: #### X M #### [facility] (DEFAULT) [address] [address] cPRA 0 % Normal 0 [facility] Comment on above: Performed By: #### X M #### [facility] (DEFAULT) [address] [address] [address] CARDIAC PULMONARY VENOGRA [facility] 10-30-2023 CT CARDIAC PULMONARY VENOGRAM [facility] CT Report Name: WM SHEA : 1950 Scan Date: 2023-10-30 12:33:57 Electronically signed by Juventino Patel 14:29:03 VITALS HEIGHT: 70.98 in (180.30 cm) WEIGHT: 227.01 lbs (102.97 kgs) BSA: 2.23 m^2 BMI: 32 kg/m^2 BP: 137 / 62 mmHg BASELINE HR: 61 BPM FINAL \nCTPV -\X09\There is no evidence of LA, RA, or LEXIE thrombus. -\X09\There is no significant coronary artery calcification within the limitation of the study. -\X09\Normal variant pulmonary venous anatomy -\X09\Watchman measurements as below -\X09\Irregular, partially calcified lesion of left sided rib measuring 19 x 15, differential include endochrondroma vs. neoplasm. Consider dedicated chest imaging. STUDY QUALITY: Study quality is good. OTHER FINDINGS: Hx of atrial arrhythmia. Pulmonary CT venogram to assess left atrial (LA) and pulmonary veins (PV) anatomy. -\X09\There are 5 pulmonary veins (PV) draining to the left atrium (LA). 3 RPVs, 2 LPVs. No evidence of PV stenosis. -\X09\ There is a very small filling defect at the LEXIE on first pass on first pass that resolves on delayed imaging. -\X09\Watchman Device landing zone is 27 x 25 mm, area of 5.4 cm2. Perimeter of 83 mm, as measured 13 mm from the tip of Coumadin ridge at 15 % RR of the cardiac cycle. Depth is 32 mm. -\X09\No significant coronary artery calcification is seen. However, the study is not optimized for coronary calcification detection or for luminal stenosis evaluation. Extra cardiac findings: (limited field of view) Chest Wall: Irregular, partially calcified lesion of left sided rib measuring 19 x 15, differential include endochrondroma vs. neoplasm Mediastinum/Alfredo: no calcific adenopathy Pleural Spaces: Normal, without thickening/effusion or pneumothorax Lung Parenchyma: No evidence of significant lung disease, nodules or masses. Pericardium: Normal, without thickening/effusion or calcification. SCAN INFO TEST TYPE: Venogram SCANNER MANAGER OF SCHOOL: [employer] SCANNER MODEL: PlasmaSi X.ceed DOSE REDUCTION ALGORITHM: Helical without dose modulation SCAN COVERAGE ZONE: Pulmonary Veins/LEXIE EKG GATED: Yes GENERAL CONTRAST AGENT -- CONTRAST AGENT USED?: Yes TYPE: Omnipaque 350 DOSE: 80 ml RATE: 4 ml/s ROUTE: IV BOLUS TECHNIQUE: Biphasic SCAN DELAY TIME METHOD: Bolus Track SERUM CREATININE: 0.98 mg/dL GFR: 79.91 ml/min/1.73m^2 CREATININE DATE: CT CONTRAST REACTION: None RADIATION DOSE -- DLP: 815 SETUP -- DATE OF EVENT: SCAN TYPE: Clinical PATIENT TYPE: Outpatient REASON(S) FOR SCAN: Other... OTHER, SPECIFY:: Post Watchman Evaluation REFERRING PHYSICIAN: 1) Bandar Swanson ATTENDING PHYSICIAN: JUVENTINO PATEL BILLING Patient Account [id number] CPT Codes 42215 ICD10 Codes I48.0 Report generated by [employer], a product of [employer] Normal [facility] Chest>Heart.atrium.left+Pulm onary veins CT angiogram and 3D reconstruction W contrast Vincenzo 10-30-2023 [facility] CT Report Name: WM SHEA : 1950 Scan Date: 2023-10-30 12:33:57 Electronically signed by Juventino Patel 14:29:03 VITALS HEIGHT: 70.98 in (180.30 cm) WEIGHT: 227.01 lbs (102.97 kgs) BSA: 2.23 m^2 BMI: 32 kg/m^2 BP: 137 / 62 mmHg BASELINE HR: 61 BPM FINAL IMPRESSION \nCTPV - There is no evidence of LA, RA, or LEXIE thrombus. - There is no significant coronary artery calcification within the limitation of the study. - Normal variant pulmonary venous anatomy - Watchman measurements as below - Irregular, partially calcified lesion of left sided rib measuring 19 x 15, differential include endochrondroma vs. neoplasm. Consider dedicated chest imaging. STUDY QUALITY: Study quality is good. OTHER FINDINGS: Hx of atrial arrhythmia. Pulmonary CT venogram to assess left atrial (LA) and pulmonary veins (PV) anatomy. - There are 5 pulmonary veins (PV) draining to the left atrium (LA). 3 RPVs, 2 LPVs. No evidence of PV stenosis. - There is a very small filling defect at the LEXIE on first pass on first pass that resolves on delayed imaging. - Watchman Device landing zone is 27 x 25 mm, area of 5.4 cm2. Perimeter of 83 mm, as measured 13 mm from the tip of Coumadin ridge at 15 % RR of the cardiac cycle. Depth is 32 mm. - No significant coronary artery calcification is seen. However, the study is not optimized for coronary calcification detection or for luminal stenosis evaluation. Extra cardiac findings: (limited field of view) Chest Wall: Irregular, partially calcified lesion of left sided rib measuring 19 x 15, differential include endochrondroma vs. neoplasm Mediastinum/Alfredo: no calcific adenopathy Pleural Spaces: Normal, without thickening/effusion or pneumothorax Lung Parenchyma: No evidence of significant lung disease, nodules or masses. Pericardium: Normal, without thickening/effusion or calcification. SCAN INFO TEST TYPE: Venogram SCANNER MANAGER OF SCHOOL: [employer] SCANNER MODEL: ExceleraRxOM X.ceed DOSE REDUCTION ALGORITHM: Helical without dose modulation SCAN COVERAGE ZONE: Pulmonary Veins/LEXIE EKG GATED: Yes GENERAL CONTRAST AGENT -- CONTRAST AGENT USED?: Yes TYPE: Omnipaque 350 DOSE: 80 ml RATE: 4 ml/s ROUTE: IV BOLUS TECHNIQUE: Biphasic SCAN DELAY TIME METHOD: Bolus Track SERUM CREATININE: 0.98 mg/dL GFR: 79.91 ml/min/1.73m^2 CREATININE DATE: CT CONTRAST REACTION: None RADIATION DOSE -- DLP: 815 SETUP -- DATE OF EVENT: SCAN TYPE: Clinical PATIENT TYPE: Outpatient REASON(S) FOR SCAN: Other... OTHER, SPECIFY:: Post Watchman Evaluation REFERRING PHYSICIAN: 1) Bandar Swanson ATTENDING PHYSICIAN: JUVENTINO PATEL BILLING Patient Account [id number] CPT Codes 28692 ICD10 Codes I48.0 Report generated by [employer], a product of [employer] CARDIOLOGY Juventino Patel MD 10/30/2023 [facility] CT Report Name: WM SHEA : 1950 Scan Date: 2023-10-30 12:33:57 Electronically signed by Juventino Patel 14:29:03 VITALS ========= ========= HEIGHT: 70.98 in (180.30 cm) WEIGHT: 227.01 lbs (102.97 kgs) BSA: 2.23 m^2 BMI: 32 kg/m^2 BP: 137 / 62 mmHg BASELINE HR: 61 BPM FINAL IMPRESSION ========= ========= \nCTPV -There is no evidence of LA, RA, or LEXIE thrombus. -There is no significant coronary artery calcification within the limitation of the study. -Normal variant pulmonary venous anatomy -Watchman measurements as below -Irregular, partially calcified lesion of left sided rib measuring 19 x 15, differential include endochrondroma vs. neoplasm. Consider dedicated chest imaging. STUDY QUALITY: Study quality is good. OTHER FINDINGS: Hx of atrial arrhythmia. Pulmonary CT venogram to assess left atrial (LA) and pulmonary veins (PV) anatomy. -There are 5 pulmonary veins (PV) draining to the left atrium (LA). 3 RPVs, 2 LPVs. No evidence of PV stenosis. - There is a very small filling defect at the LEXIE on first pass on first pass that resolves on delayed imaging. -Watchman Device landing zone is 27 x 25 mm, area of 5.4 cm2. Perimeter of 83 mm, as measured 13 mm from the tip of Coumadin ridge at 15 % RR of the cardiac cycle. Depth is 32 mm. -No significant coronary artery calcification is seen. However, the study is not optimized for coronary calcification detection or for luminal stenosis evaluation. Extra cardiac findings: (limited field of view) Chest Wall: Irregular, partially calcified lesion of left sided rib measuring 19 x 15, differential include endochrondroma vs. neoplasm Mediastinum/Alfredo: no calcific adenopathy Pleural Spaces: Normal, without thickening/effusion or pneumothorax Lung Parenchyma: No evidence of significant lung disease, nodules or masses. Pericardium: Normal, without thickening/effusion or calcification. SCAN INFO ========= ========= TEST TYPE: Venogram SCANNER MANAGER OF SCHOOL: Hexago SCANNER MODEL: SOMATOM X.ceed DOSE REDUCTION ALGORITHM: Helical without dose modulation SCAN COVERAGE ZONE: Pulmonary Veins/LEXIE EKG GATED: Yes GENERAL --------- CONTRAST AGENT -- CONTRAST AGENT USED?: Yes TYPE: Omnipaque 350 DOSE: 80 ml RATE: 4 ml/s ROUTE: IV BOLUS TECHNIQUE: Biphasic SCAN DELAY TIME METHOD: Bolus Track SERUM CREATININE: 0.98 mg/dL GFR: 79.91 ml/min/1.73m^2 CREATININE DATE: CT CONTRAST REACTION: None RADIATION DOSE -- DLP: 815 SETUP -- DATE OF EVENT: SCAN TYPE: Clinical PATIENT TYPE: Outpatient REASON(S) FOR SCAN: Other... OTHER, SPECIFY:: Post Watchman Evaluation REFERRING PHYSICIAN: 1) Bandar Swanson ATTENDING PHYSICIAN: JUVENTINO SHEPPARD ========= ========= Patient Account [id number] CPT Codes 89763 ICD10 Codes I48.0 Report generated by [employer], a product of [employer] [facility] Radiology Study observation (narrative) [facility] Chest>Heart.atrium.left+Pulm onary veins CT angiogram and 3D reconstruction W contrast IVOrdered By: Juventino Patel on 10-30-2023 [facility] Work Phone: CBC AND ELECTRONIC DIFFon Basophils (Bld) [#/Vol] K/uL 0.00 - 0.09 K/uL [facility] Basophils/100 WBC (Bld) 0.0 % [facility] Differential cell count method Nom (Bld) Electronic Differential [facility] Eosinophils (Bld) [#/Vol] 0.09 10*3/uL 0.00 - 0.48 K/uL [facility] Eosinophils/100 WBC (Bld) 3.8 % [facility] Erythrocyte distribution width (RBC) [Ratio] 18.6 % High 10.9 - 14.3 % [facility] Hematocrit (Bld) [Volume fraction] 23.0 % Low 39.6 - 48.8 % [facility] Hemoglobin (Bld) [Mass/Vol] 7.7 g/dL Low 13.4 - 16.8 g/dL [facility] Immature granulocytes (Bld) [#/Vol] K/uL NINF - 0.07 K/uL [facility] Immature granulocytes/100 WBC (Bld) 1.3 % [facility] Interpretation and review of laboratory results Abnormal [facility] Lymphocytes (Bld) [#/Vol] 1.09 10*3/uL 0.83 - 3.57 K/uL [facility] Lymphocytes/100 WBC (Bld) 45.8 % [facility] MCH (RBC) [Entitic mass] 31.8 pg 26.1 - 33.3 pg [facility] MCHC (RBC) [Mass/Vol] 33.5 g/dL 31.9 - 36.5 g/dL [facility] MCV (RBC) [Entitic vol] 95.0 fL High 79.0 - 94.5 fL [facility] Comment on above: Results inconsistent with previous results Monocytes (Bld) [#/Vol] 0.06 10*3/uL Low 0.24 - 0.93 K/uL [facility] Monocytes/100 WBC (Bld) 2.5 % [facility] Neutrophils (Bld) [#/Vol] 1.11 10*3/uL Low 1.57 - 6.19 K/uL [facility] Nucleated RBC/100 WBC (Bld) [Ratio] 0.0 % NINF [facility] Platelet mean volume (Bld) [Entitic vol] 12.6 fL High 8.7 - 12.3 fL [facility] Comment on above: This is an appended report. These results have been appended to a previously preliminary verified report. Platelets (Bld) [#/Vol] 78 10*3/uL Low 146 - 337 K/uL [facility] Comment on above: Results inconsistent with previous results. This is an appended report. These results have been appended to a previously preliminary verified report. RBC (Bld) [#/Vol] 2.42 10*6/uL Low [facility] Segmented neutrophils/100 WBC (Bld) 46.6 % [facility] WBC (Bld) [#/Vol] 2.38 10*3/uL Low 3.73 - 10.10 K/uL [facility] Abs Baso Auto < Normal 0.00-0.09 [facility] Comment on above: Performed By: #### X M #### [facility] (DEFAULT) [address] [place] [address] Basophils/100 WBC (Bld) 0.0 % Normal [facility] Comment on above: Performed By: #### X M #### [facility] (DEFAULT) [address] [address] DIFF STATUS Electronic Differential Normal [facility] Comment on above: Performed By: #### X M #### [facility] (DEFAULT) [address] [address] Eosinophils (Bld) [#/Vol] 0.09 10*3/uL Normal 0.00-0.48 [facility] Comment on above: Performed By: #### X M #### [facility] (DEFAULT) [address] [address] Eosinophils/100 WBC (Bld) 3.8 % Normal [facility] Comment on above: Performed By: #### X M #### [facility] (DEFAULT) [address] [address] Hematocrit (Bld) [Volume fraction] 23.0 % Low 39.6-48.8 [facility] Comment on above: Performed By: #### X M #### [facility] (DEFAULT) [address] [address] Hemoglobin (Bld) [Mass/Vol] 7.7 g/dL Low 13.4-16.8 [facility] Comment on above: Performed By: #### X M #### [facility] (DEFAULT) [address] [address] Immature Grans % 1.3 % Normal [facility] Comment on above: Performed By: #### X M #### [facility] (DEFAULT) [address] [address] Immature Grans Absolute < Normal <=0.07 [facility] Comment on above: Performed By: #### X M #### [facility] (DEFAULT) [address] [address] Lymphocytes (Bld) [#/Vol] 1.09 10*3/uL Normal 0.83-3.57 [facility] Comment on above: Performed By: #### X M #### [facility] (DEFAULT) [address] [place] [address] Lymphocytes/100 WBC (Bld) 45.8 % Normal [facility] Comment on above: Performed By: #### X M #### [facility] (DEFAULT) [address] [place] [address] MCV (RBC) [Entitic vol] 95.0 fL High 79.0-94.5 [facility] Comment on above: Result Comment: Resu lts inconsistent with previous results Performed By: #### X M #### [facility] (DEFAULT) [address] [place] [address] Mean Cell Hgb 31.8 pg Normal 26.1-33.3 [facility] Comment on above: Performed By: #### X M #### [facility] (DEFAULT) [address] [place] [address] Mean Cell Hgb Conc 33.5 g/dL Normal 31.9-36.5 [facility] Comment on above: Performed By: #### X M #### [facility] (DEFAULT) [address] [place] [address] Monocytes (Bld) [#/Vol] 0.06 10*3/uL Low 0.24-0.93 [facility] Comment on above: Performed By: #### X M #### [facility] (DEFAULT) [address] [place] [address] Monocytes/100 WBC (Bld) 2.5 % Normal [facility] Comment on above: Performed By: #### X M #### [facility] (DEFAULT) [address] [place] [address] Nucleated RBC 0.0 /100 WBC Normal <=0.2 [facility] Comment on above: Performed By: #### X M #### [facility] (DEFAULT) [address] [place] [address] Platelet mean volume (Bld) [Entitic vol] 12.6 fL High 8.7-12.3 [facility] Comment on above: Result Comment: This is an appended report. These results have been appended to a previously preliminary verified report. Performed By: #### X M #### [facility] (DEFAULT) [address] [address] Platelets (Bld) [#/Vol] 78 10*3/uL Low 146-337 [facility] Comment on above: Result Comment: Resu lts inconsistent with previous results. This is an appended report. These results have been appended to a previously preliminary verified report. Performed By: #### X M #### [facility] (DEFAULT) [address] [address] RBC (Bld) [#/Vol] 2.42 10*6/uL Low 4.38-5.83 [facility] Comment on above: Performed By: #### X M #### [facility] (DEFAULT) [address] [address] RBC Distribution 18.6 % High 10.9-14.3 [facility] Comment on above: Performed By: #### X M #### [facility] (DEFAULT) [address] [address] Segs + Bands Auto 46.6 % Normal [facility] Comment on above: Performed By: #### X M #### [facility] (DEFAULT) [address] [address] Segs + Bands,Absolute Auto 1.11 K/uL Low 1.57-6.19 [facility] Comment on above: Performed By: #### X M #### [facility] (DEFAULT) [address] [address] WBC (Bld) [#/Vol] 2.38 10*3/uL Low 3.73-10.10 [facility] Comment on above: Performed By: #### X M #### [facility] (DEFAULT) [address] [address] COMPREHENSIVE METABOLIC PANE Joey 10-07-2023 Albumin [Mass/Vol] 4.1 g/dL 3.5 - 5.0 [facility] ALP [Catalytic activity/Vol] 66 U/L 32 - 126 U/L [facility] ALT [Catalytic activity/Vol] 15 U/L 10 - 52 U/L [facility] Anion gap [Moles/Vol] 10 mmol/L 7 - 17 mmol/L [facility] AST [Catalytic activity/Vol] 18 U/L 10 - 39 U/L [facility] Bilirubin [Mass/Vol] 0.6 mg/dL NINF - 1.5 mg[facility] Calcium [Mass/Vol] 9.4 mg/dL 8.6 - 10. 5 mg/dL [facility] Chloride [Moles/Vol] 108 mmol/L 98 - 10 8 mmol/L [facility] CO2 [Moles/Vol] 26 mmol/L 21 - 31 mmol/L [facility] Creatinine [Mass/Vol] 0.98 mg/dL 0.70 - 1.30 mg/dL [facility] eGFR, CKD-EPI, Male 82 - PINF [facility] Comment on above: Reported eGFR is bas ed on the CKD-EPI 2020 equation using creatinine, age, and sex. Glucose [Mass/Vol] 94 mg/dL 70 - 99 mg/dL [facility] Osmolality Calc [Osmolality] 293 [facility] Potassium [Moles/Vol] 4.6 mmol/L 3.5 - 5.0 mmol/L [facility] Protein [Mass/Vol] 7.0 g/dL 6.4 - 8.3 g/dL [facility] Sodium [Moles/Vol] 139 mmol/L 135 - 145 mmol/L [facility] Urea nitrogen [Mass/Vol] 17 mg/dL 7 - 25 mg/dL [facility] Urea nitrogen/Creatinine [Mass ratio] 17 [facility]in [Mass/Vol] 4.1 g/dL Normal 3.5-5.0 [facility] Comment on above: Performed By: #### X M #### [facility] (DEFAULT) [address] [place] [address] ALP [Catalytic activity/Vol] 66 U/L Normal 32-126 [facility] Comment on above: Performed By: #### X M #### [facility] (DEFAULT) [address] [place] [address] ALT [Catalytic activity/Vol] 15 U/L Normal 10-52 [facility] Comment on above: Performed By: #### X M #### [facility] (DEFAULT) [address] [place] [address] Anion gap [Moles/Vol] 10 mmol/L Normal 7-17 [facility] Comment on above: Performed By: #### X M #### [facility] (DEFAULT) [address] [place] [address] AST [Catalytic activity/Vol] 18 U/L Normal 10-39 [facility] Comment on above: Performed By: #### X M #### [facility] (DEFAULT) [address] [place] [address] Bilirubin [Mass/Vol] 0.6 mg/dL Normal <1.5 [facility] Comment on above: Performed By: #### X M #### [facility] (DEFAULT) [address] [place] [address] Calcium [Mass/Vol] 9.4 mg/dL Normal 8.6-10.5 [facility] Comment on above: Performed By: #### X M #### [facility] (DEFAULT) [address] [place] [address] Chloride [Moles/Vol] 108 mmol/L Normal 98-108 [facility] Comment on above: Performed By: #### X M #### [facility] (DEFAULT) [address] [place] [address] CO2 [Moles/Vol] 26 mmol/L Normal 21-31 [facility] Comment on above: Performed By: #### X M #### [facility] (DEFAULT) [address] [address] Creatinine [Mass/Vol] 0.98 mg/dL Normal 0.70-1.30 [facility] Comment on above: Performed By: #### X M #### [facility] (DEFAULT) [address] [address] GFR/1.73 sq M.predicted among non-blacks MDRD (S/P/Bld) [Vol rate/Area] 82 mL/min/{1.73_m2} Normal >=60 [facility] Comment on above: Result Comment: Repo rted eGFR is based on the CKD-EPI 2020 equation using creatinine, age, and sex. Performed By: #### X M #### [facility] (DEFAULT) [address] [address] Glucose [Mass/Vol] 94 mg/dL Normal 70-99 [facility] Comment on above: Performed By: #### X M #### [facility] (DEFAULT) [address] [address] Osmolality [Osmolality] 293 mosm/kg Normal 278-305 [facility] Comment on above: Performed By: #### X M #### [facility] (DEFAULT) [address] [place] [address] Potassium [Moles/Vol] 4.6 mmol/L Normal 3.5-5.0 [facility] Comment on above: Performed By: #### X M #### [facility] (DEFAULT) [address] [address] Protein [Mass/Vol] 7.0 g/dL Normal 6.4-8.3 [facility] Comment on above: Performed By: #### X M #### [facility] (DEFAULT) [address] [place] [address] Sodium [Moles/Vol] 139 mmol/L Normal 135-145 [facility] Comment on above: Performed By: #### X M #### [facility] (DEFAULT) [address] [place] [address] Urea nitrogen [Mass/Vol] 17 mg/dL Normal 12-03 [facility] Comment on above: Performed By: #### X M #### [facility] (DEFAULT) [address] [place] [address] Urea nitrogen/Creatinine [Mass ratio] 17 mg/mg Normal [facility] Comment on above: Performed By: #### X M #### [facility] (DEFAULT) [address] [place] [address] TYPE AND SCREENon 10-07-2023 ABO/RH(D) TYPE Positive [facility] ABO/RH(D) TYPE Positive Normal [facility] Comment on above: Performed By: #### X M #### [facility] (DEFAULT) [address] [place] [address] NUC MYOCARD PERF STRESS MIBI PHARMon 09-04-2023 NUC MYOCARD PERF STRESS MIBI PHARM ? Stress myocardial perfusion scan within normal limits. ? No evidence of ischemia. ? No evidence of prior myocardial injury. ? Mildly reduced left ventricular systolic function (45%). ? The baseline rhythm was atrial fibrillation with RVR + occasional PVC's ? The pharmacological stress ECG is negative at the heart rate obtained. Table formatting from the original result was not included. Images from the original result were not included. 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 Interpretation Summary ? Stress myocardial perfusion scan within normal limits. ? No evidence of ischemia. ? No evidence of prior myocardial injury. ? Mildly reduced left ventricular systolic function (45%). ? The baseline rhythm was atrial fibrillation with RVR + occasional PVC's ? The pharmacological stress ECG is negative at the heart rate obtained. Stress Findings ECG Baseline ECG shows arrhythmia: atrial fibrillation and PVC. Stress ECG is unchanged from baseline. Recovery ECG returned to baseline. Negative pharm stress test. Stress Findings A pharmacological stress test was performed using regadenoson without low-level exercise. The patient reported no symptoms prior to the stress test. Patient experienced feeling odd and lightheadedness during stress. The patient reached the end of the protocol. Patient in atrial fibrillation with heart rate ranging 100-120 bpm prior to stress. After reviewing initial ecg with Dr So, patient was switched to pharmacological stress test. Patient reported that symptoms resolved by the end of recovery. Reading Providers Reading Role Read Date Marcellus So MD ECG [place], SPECT [place], Test Signals Collector/Analyst 09/04/2023 Stress Measurements Baseline Vitals-Supine Baseline HR 110 bpm Baseline SBP 132 mmHg Baseline DBP 80 mmHg Baseline Vitals-Standing Baseline HR 105 bpm Baseline SBP 144 mmHg Baseline DBP 76 mmHg Peak Stress Vitals Peak HR 148 bpm Peak SBP 146 mmHg Peak DBP 68 mmHg Rate Pressure Product 21,608 Exercise Data APHRMAX 148 bpm % APHRMAX 100 % Exercise duration (min) 4 min Exercise duration (sec) 0 sec chronotropic augmentation 41 Nuclear Stress Findings Isotope Admin The isotope used for nuclear imaging was technetium sestamibi.No radiopharmaceutical dose was extravasated. Nuclear Study Quality Overall image quality is good. Nuclear Prior Study There is no prior study available for comparison. Nuclear Stress Gating Stress perfusion cavity size was 103 mL. Resting perfusion cavity size was 90 mL. The stress/rest perfusion ratio is 1.14. There is no evidence of transient ischemic dilation (TID). Ejection fraction is 45.00%. End diastolic index is 57.00 mL/m2. End systolic index is 31.00 mL/m2. Left ventricular cavity size is normal. Lung to heart ratio is normal determined by sestamibi (less than 0.44). The lung to heart ratio is 0.34. Stage Data 1 2 3 4 5 Stage Rest Rest Stress Stress Stress Stage Details sitting standing 1 2 3 Time in stage (min:sec) 1:00 1:00 1:00 Heart Rate 110 105 126 144 134 Blood Pressure 132/80 144/76 - 120/60 132/74 O2 Sat % Metabolic Equivalents RPE Larkin Dobutamine (mcg/kg/min) Atropine (mg) Grade % Speed Yonis Score Dyspnea Yonis Score Leg Fatigue Comments Dr So switched to pharm test due to afib HR 100-120. feeling odd 6 7 8 9 10 Stage Stress Recovery Recovery Recovery Recovery Stage Details 4 1 2 3 4 Time in stage (min:sec) 1:00 1:00 1:00 1:00 1:00 Heart Rate 142 134 134 130 118 Blood Pressure 146/68 120/60 - - 128/68 O2 Sat % Metabolic Equivalents RPE Larkin Dobutamine (mcg/kg/min) Atropine (mg) Grade % Speed Yonis Score Dyspnea Yonis Score Leg Fatigue Comments 11 12 13 14 15 Stage Recovery Stage Details 5 Time in stage (min:sec) 1:00 Heart Rate 111 Blood Pressure - O2 Sat % Metabolic Equivalents RPE Larkin Dobutamine (mcg/kg/min) Atropine (mg) Grade % Speed Yonis Score Dyspnea Yonis Score Leg Fatigue Comments symptoms resolved Nuclear Stress Measurements Nuc Stress EF 45 % Nuclear Perfusion Perfusion Scoring Stress Summed Score: 0 Percent Abnormal: 0.00% The left ventricular perfusion is normal. Resting Summed Score: 1 Percent Abnormal: 1.47% Mild count reduction in the following segments: apical anterior. All other segments are normal. Prone Summed Score: 0 Percent Abnormal: 0.00% The left ventr (more content not included)... Normal [facility] SPECT Heart perfusion at res t and W stress and W radionuclide IVOrdered By: Marcellus So on 09-04-2023 % [facility]MAX 100 % [facility] 148 bpm [facility]: Baseline DBP 80 mmHg [facility] Work Phone: Baseline DBP 76 mmHg [facility] Work Phone: Baseline HR 110 bpm [facility] 105 bpm [facility]: Baseline SBP 132 mmHg [facility] Work Phone: Baseline SBP 144 mmHg [facility] Work Phone: Body surface area Derived from formula 2.22 m2 [facility] Work Phone: chronotropic augmentation 41 [facility] Work Phone: Exercise duration (min) 4 min [facility] Work Phone: Exercise duration (sec) 0 sec [facility] Work Phone: NM ED vol idx 57.00 mL/m2 [facility] Work Phone: NM ES vol idx 31.00 mL/m2 [facility] Work Phone: Nuc Stress EF 45.00 % [facility] Work Phone: Peak DBP 68 mmHg [facility] Work Phone: Peak HR 148 bpm [facility] Work Phone: Peak SBP 146 mmHg [facility] Work Phone: Rate Pressure Product [phone] [facility] Work Phone: [facility] Work Phone: SPECT Heart perfusion at res t and W stress and W radionuclide Vincenzo 09-04-2023 Stress myocardial perfusion scan within normal limits. No evidence of ischemia. No evidence of prior myocardial injury. Mildly reduced left ventricular systolic function (45%). The baseline rhythm was atrial fibrillation with RVR + occasional PVC's The pharmacological stress ECG is negative at the heart rate obtained. Study Details Pharmacological nuclear stress test performed using 1-day rest/stress protocol. Regadenoson infusion given over 10 seconds. Resting Single-Photon Emission Computed Tomography (SPECT) three axis myocardial perfusion images of the heart were acquired with an acquisition time of 10:06 EDT. Post-stress Single-Photon Emission Computed Tomography (SPECT) three axis myocardial perfusion images of the heart were acquired with an acquisition time of 12:35 EDT. Gated SPECT images obtained. Frame rate: 8 frames/sec. Stress prone images were obtained. Imaging system used: [facility]. Stress Findings A pharmacological stress test was performed using regadenoson without low-level exercise. The patient reported no symptoms prior to the stress test. Patient experienced feeling odd and lightheadedness during stress. The patient reached the end of the protocol. Patient in atrial fibrillation with heart rate ranging 100-120 bpm prior to stress. After reviewing initial ecg with Dr So, patient was switched to pharmacological stress test. Patient reported that symptoms resolved by the end of recovery. ECG Baseline ECG shows arrhythmia: atrial fibrillation and PVC. Stress ECG is unchanged from baseline. Recovery ECG returned to baseline. Negative pharm stress test. Nuclear Study Quality Overall image quality is good. Nuclear Prior Study There is no prior study available for comparison. Isotope Admin The isotope used for nuclear imaging was technetium sestamibi.No radiopharmaceutical dose was extravasated. Nuclear Stress Gating Stress perfusion cavity size was 103 mL. Resting perfusion cavity size was 90 mL. The stress/rest perfusion ratio is 1.14. There is no evidence of transient ischemic dilation (TID). Ejection fraction is 45.00%. End diastolic index is 57.00 mL/m2. End systolic index is 31.00 mL/m2. Left ventricular cavity size is normal. Lung to heart ratio is normal determined by sestamibi (less than 0.44). The lung to heart ratio is 0.34. Perfusion Scoring Stress Summed Score: 0 Percent Normal: 0.00% The left ventricular perfusion is normal. Perfusion Scoring Resting Summed Score: 1 Percent Normal: 1.47% Mild count reduction in the following segments: apical anterior. All other segments are normal. Perfusion Scoring Prone Summed Score: 0 Percent Normal: 0.00% The left ventricular perfusion is normal. [facility] Radiology Study observation (narrative) [facility] SURG PATH REQUESTon 08-27-19 Case Report Normal [facility] Comment on above: Result Comment: Surg ical Pathology Report Case: [id number] Authorizing Provider: Eileen Echols, Collected: 08/27/2023 11:58 AM [employer] COORDINATOR Ordering Location[facility] Received: 08/27/2023 11:58 AM STEVEN Pathologist: Andrea Bauer II, MD, PhD Specimen: SURG PATH, Bone marrow Performed By: #### X M, ABORH #### [facility] (DEFAULT) [address] [address] Diagnosis Comments Normal [facility] Comment on above: Result Comment: The patient's history of macrocytic anemia is noted. The peripheral blood show very rare blast (<1%). The aspirate shows <5% blasts. 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 The marrow is hypercellular and myeloid-predominant. CD34 stains 1% of cellularity as blasts, with some atypical localization of immature precursors (ALIP). Per outside institution report, MDS FISH panel is negative. 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 Clinical correlation with molecular studies is recommended for confirmation. Performed By: #### X M, ABORH #### [facility] (DEFAULT) [address] [address] Gross Description Normal [facility] Comment on above: Result Comment: The following material(s) are received from [facility], [address] [place] [address] with an identifying Surgical Pathology Report and the Immunohistochemistry / In Situ Hybridization (ZAYDA) Report, along with a copy of the Flow Panel: Leukemia/Lymphoma, Chromosome, Leukemia/Lymphoma and MDS FISH Panel [facility] [place]: 2 H&E slide(s), 36 non-H&E slide(s) labeled B24-2. Outside pathology materials are returned in sixty (60) days under separate cover with our number recorded on them. Grosser for this case was: Laverne Little Performed By: #### X M, ABORH #### [facility] (DEFAULT) [address] [place] [address] Microscopic Description Normal [facility] Comment on above: Result Comment: A mi croscopic examination was performed. BONE MARROW REPORT The following specimens were interpreted to arrive at the above diagnosis: clot section, bone marrow aspirate, peripheral blood smear, and iron stain CBC data and smear review (200 cells): Per report WBC: 5.6 x K/uL; Hgb: 8.5 g/dL; Hct: 25.9%; MCV: 107.9 fl; Plt: 172 K/uL Manual/Electronic differential: myelocytes 2%, metamyelocytes 0%, bands 0%, neutrophils 51%, lymphocytes 43%, monocytes 2%, eosinophils 2%, basophils 0%. Blood smear findings: Review of the peripheral blood shows adequate leukocyte count with mild left shift. Rare (<1%) blast. Macrocytic anemia with anisopoikilocytosis with ovalocytes. Adequate platelets with unremarkable morphology. Aspirate smear and/or touch preparation quality: The aspirates are spicular and cellular. Crush effect is are present potentially altering true differential count. The staining is adequate. Bone marrow aspirate smear and/or touch preparation differential (300 cells): Blasts: 0% Promyelocytes: 0% Myelocytes: 10% Metamyelocytes: 9% Bands/neutrophils: 64% Lymphocytes: 2% Monocytes: 0% Eosinophils: 4% Basophils: 0% Erythroid precursors: 11% Plasma cells: 0% M:E Ratio: The myeloid to erythroid ratio is 7.9:1. Erythropoiesis: Proportionally decreased. Predominantly normoblastic maturation. No significant dysplasia. Granulopoiesis: Increased. Progression to mature forms is noted. Blasts are not increased. Dim overall staining, cannot rule out hypogranularity vs from staining protocol. Megakaryocytes: Megakaryocytes are adequate in number and show few (<10%) small forms with hypolobate nuclei or atypical nuclear lobation. Lymphocytes/plasma cells: The lymphocytes and plasma cells are not increased and show unremarkable morphology. Iron stain: Iron staining is increased. Rare (<5%) ring sideroblasts are seen. The iron control shows appropriate reactivity. Iron stain on clot shows stainable iron. Biopsy and clot findings: One clot section shows a cellularity of 80%. There is increased granulopoiesis, proportionally decreased erythropoiesis, and residual megakaryopoiesis. No significant lymphoid aggregates are identified. CD34 stains 1% of cellularity as blasts, with some atypical localization of immature precursors (ALIP). Rare background B cells are highlighted with CD20. Background T cells (5-10% of cellularity) are highlighted with CD3, CD5, and BCL2. Rare background plasma cells are highlighted with CD138, MUM1, and CD79a and are polytypic by kappa/lambda IHC and without aggregates. Granulocytes are appropriately highlighted with CD10, CD15, CD45, CD43. P53 shows heterogenous staining. Ki67 is appropriately high. AE1/3, Cyclin D1, BCL6, cMYC, CD56, CD23, CD30 are negative. PAS shows an increased M:E ratio and adequate megakaryocytes. Reticulin stain shows MF0 fibrosis. The other clot section is predominantly blood with few marrow elements. Reticulin, iron, and PAS are suboptimal on this block. 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 Cytogenetics/FISH and Molecular Studies: Per outside institution report, MDS FISH panel is negative. 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 *The above report complies, in slightly modified form, with the guidelines of the [employer] [place] [employer] for the reporting of cancer specimens. *Hematopoietic neoplasms are classified according to: - WHO Classification of Tumours Editorial Board. Haematolymphoid tumours. Ghotra (Lilian): International Agency for Research on Cancer; (WHO classification of tumours series, 5th ed.; vol. 11, 2021). https://publications.iarc.fr. - The International Consensus Classification of Mature Lymphoid Neoplasms: a report from the Clinical Advisory Committee. Blood. 2021Jan 24;140(11):7323-0635. doi: 10.1182/blood.5770585053. Erratum in: Blood. 2022Jun 06;141(4):437. PMID: 36588917; PMCID: [id number]. -International Consensus Classification of Myeloid Neoplasms and Acute Leukemias: integrating morphologic, clinical, and genomic data. Blood. 2021Jan 24;140(11):9810-9555. doi: 10.1182/blood.4392001536. PMID: 61176479; PMCID: [id number]. Performed By: #### X M, ABORH #### [facility] (DEFAULT) [address] [place] [address] Pathologic Diagnosis Normal [facility] Comment on above: Result Comment: Outs diane Slides: B24-2 (07/09/23) Bone marrow: Hypercellular (80%) bone marrow with increased granulopoiesis, proportionally decreased erythropoiesis, and residual megakaryopoiesis. Increased stainable iron without increased ring sideroblasts. Performed By: #### X M, ABORH #### [facility] (DEFAULT) [address] [place] [address] Professional Interpretation Performed at: Normal [facility] Comment on above: Result Comment: [facility] For Immediate Release [facility] Yes [address] [address] Performed By: #### X M, ABORH #### [facility] (DEFAULT) [address] [place] [address] CBC AND ELECTRONIC DIFFon Basophils (Bld) [#/Vol] [facility] Basophils/100 WBC (Bld) [facility] Eosinophils (Bld) [#/Vol] [facility] Eosinophils/100 WBC (Bld) [facility] Erythrocyte distribution width (RBC) [Ratio] 22.3 % High 10.9 - 14.3 % [facility] Hematocrit (Bld) [Volume fraction] 23.2 % Low 39.6 - 48.8 % [facility] Hemoglobin (Bld) [Mass/Vol] 7.6 g/dL Low 13.4 - 16.8 g/dL [facility] Immature granulocytes (Bld) [#/Vol] [facility] Immature granulocytes/100 WBC (Bld) [facility] Lymphocytes (Bld) [#/Vol] [facility] Lymphocytes/100 WBC (Bld) [facility] MCH (RBC) [Entitic mass] 34.1 pg High 26.1 - 33.3 pg [facility] MCHC (RBC) [Mass/Vol] 32.8 g/dL 31.9 - 36.5 g/dL [facility] MCV (RBC) [Entitic vol] 104.0 fL High 79.0 - 94.5 fL [facility] Comment on above: Results inconsistent with previous results Monocytes (Bld) [#/Vol] [facility] Monocytes/100 WBC (Bld) [facility] Neutrophils/100 WBC (Bld) [facility] Platelet mean volume (Bld) [Entitic vol] 12.0 fL 8.7 - 12.3 fL [facility] Platelets (Bld) [#/Vol] 171 10*3/uL 146 - 337 K/uL [facility] RBC (Bld) [#/Vol] 2.23 10*6/uL Low [facility] Segmented neutrophils/100 WBC (Bld) [facility] WBC (Bld) [#/Vol] 7.43 10*3/uL 3.73 - 10.10 K/uL [facility] Abs Baso Auto Normal [facility] Comment on above: Performed By: #### P 3J #### [facility] (DEFAULT) [address] [place] [address] Abs Eos Auto Normal [facility] Comment on above: Performed By: #### P 3J #### [facility] (DEFAULT) [address] [place] [address] Abs Lymph Auto Normal [facility] Comment on above: Performed By: #### P 3J #### [facility] (DEFAULT) [address] [place] [address] Abs Rowan Auto Normal [facility] Comment on above: Performed By: #### P 3J #### [facility] (DEFAULT) [address] [place] [address] Basophil % Auto Normal [facility] Comment on above: Performed By: #### P 3J #### [facility] (DEFAULT) [address] [place] [address] Eosinophil % Auto Normal [facility] Comment on above: Performed By: #### P 3J #### [facility] (DEFAULT) [address] [place] [address] Hematocrit (Bld) [Volume fraction] 23.2 % Low 39.6-48.8 [facility] Comment on above: Performed By: #### P 3J #### [facility] (DEFAULT) [address] [place] [address] Hemoglobin (Bld) [Mass/Vol] 7.6 g/dL Low 13.4-16.8 [facility] Comment on above: Performed By: #### P 3J #### [facility] (DEFAULT) [address] [place] [address] Immature Grans % Normal [facility] Comment on above: Performed By: #### P 3J #### [facility] (DEFAULT) [address] [place] [address] Immature Grans Absolute Normal [facility] Comment on above: Performed By: #### P 3J #### [facility] (DEFAULT) [address] [place] [address] Lymphocyte % Auto Normal [facility] Comment on above: Performed By: #### P 3J #### [facility] (DEFAULT) [address] [place] [address] MCV (RBC) [Entitic vol] 104.0 fL High 79.0-94.5 [facility] Comment on above: Result Comment: Resu lts inconsistent with previous results Performed By: #### P 3J #### [facility] (DEFAULT) [address] [place] [address] Mean Cell Hgb 34.1 pg High 26.1-33.3 [facility] Comment on above: Performed By: #### P 3J #### [facility] (DEFAULT) [address] [place] [address] Mean Cell Hgb Conc 32.8 g/dL Normal 31.9-36.5 [facility] Comment on above: Performed By: #### P 3J #### [facility] (DEFAULT) [address] [place] [address] Monocyte % Auto Normal [facility] Comment on above: Performed By: #### P 3J #### [facility] (DEFAULT) [address] [place] [address] Platelet mean volume (Bld) [Entitic vol] 12.0 fL Normal 8.7-12.3 [facility] Comment on above: Performed By: #### P 3J #### [facility] (DEFAULT) [address] [place] [address] Platelets (Bld) [#/Vol] 171 10*3/uL Normal 146-337 [facility] Comment on above: Performed By: #### P 3J #### [facility] (DEFAULT) [address] [place] [address] RBC (Bld) [#/Vol] 2.23 10*6/uL Low 4.38-5.83 [facility] Comment on above: Performed By: #### P 3J #### [facility] (DEFAULT) [address] [place] [address] RBC Distribution 22.3 % High 10.9-14.3 [facility] Comment on above: Performed By: #### P 3J #### [facility] (DEFAULT) [address] [place] [address] Segs + Bands Auto Normal [facility] Comment on above: Performed By: #### P 3J #### [facility] (DEFAULT) [address] [place] [address] Segs + Bands,Absolute Auto Normal [facility] Comment on above: Performed By: #### P 3J #### [facility] (DEFAULT) [address] [place] [address] WBC (Bld) [#/Vol] 7.43 10*3/uL Normal 3.73-10.10 [facility] Comment on above: Performed By: #### P 3J #### [facility] (DEFAULT) [address] [place] [address] COMPREHENSIVE METABOLIC PANE Joey 08-20-2023 Albumin [Mass/Vol] 4.4 g/dL 3.5 - 5.0 g/dL [facility] ALP [Catalytic activity/Vol] 62 U/L 32 - 126 U/L [facility] ALT [Catalytic activity/Vol] 24 U/L 10 - 52 U/L [facility] Anion gap [Moles/Vol] 10 mmol/L 7 - 17 mmol/L [facility] AST [Catalytic activity/Vol] 24 U/L 10 - 39 U/L [facility] Bilirubin [Mass/Vol] 0.6 mg/dL NINF - 1.5 mg/dL [facility] Calcium [Mass/Vol] 9.1 mg/dL 8.6 - 10. 5 mg/dL [facility] Chloride [Moles/Vol] 109 mmol/L High 98 - 10 8 mmol/L [facility] CO2 [Moles/Vol] 25 mmol/L 21 - 31 mmol/L [facility] Creatinine [Mass/Vol] 0.92 mg/dL 0.70 - 1.30 mg/dL [facility] eGFR, CKD-EPI, Male 88 - PINF [facility] Comment on above: Reported eGFR is bas ed on the CKD-EPI 2020 equation using creatinine, age, and sex. Glucose [Mass/Vol] 110 mg/dL High 70 - 99 mg/dL [facility] Interpretation and review of laboratory results Abnormal [facility] Osmolality Calc [Osmolality] 297 [facility] Potassium [Moles/Vol] 4.8 mmol/L 3.5 - 5.0 mmol/L [facility] Protein [Mass/Vol] 7.1 g/dL 6.4 - 8.3 g/dL [facility] Sodium [Moles/Vol] 139 mmol/L 135 - 145 mmol/L [facility] Urea nitrogen [Mass/Vol] 24 mg/dL 7 - 25 mg/dL [facility] Urea nitrogen/Creatinine [Mass ratio] 26 mg/mg [facility] Albumin [Mass/Vol] 4.4 g/dL Normal 3.5-5.0 [facility] Comment on above: Performed By: #### X M #### [facility] (DEFAULT) [address] [place] [address] ALP [Catalytic activity/Vol] 62 U/L Normal 32-126 [facility] Comment on above: Performed By: #### X M #### [facility] (DEFAULT) [address] [place] [address] ALT [Catalytic activity/Vol] 24 U/L Normal 10-52 [facility] Comment on above: Performed By: #### X M #### [facility] (DEFAULT) [address] [place] [address] Anion gap [Moles/Vol] 10 mmol/L Normal 7-17 [facility] Comment on above: Performed By: #### X M #### [facility] (DEFAULT) [address] [place] [address] AST [Catalytic activity/Vol] 24 U/L Normal 10-39 [facility] Comment on above: Performed By: #### X M #### [facility] (DEFAULT) [address] [place] [address] Bilirubin [Mass/Vol] 0.6 mg/dL Normal <1.5 [facility] Comment on above: Performed By: #### X M #### [facility] (DEFAULT) [address] [place] [address] Calcium [Mass/Vol] 9.1 mg/dL Normal 8.6-10.5 [facility] Comment on above: Performed By: #### X M #### [facility] (DEFAULT) [address] [place] [address] Chloride [Moles/Vol] 109 mmol/L High 98-108 [facility] Comment on above: Performed By: #### X M #### [facility] (DEFAULT) [address] [place] [address] CO2 [Moles/Vol] 25 mmol/L Normal 21-31 [facility] Comment on above: Performed By: #### X M #### [facility] (DEFAULT) [address] [place] [address] Creatinine [Mass/Vol] 0.92 mg/dL Normal 0.70-1.30 [facility] Comment on above: Performed By: #### X M #### [facility] (DEFAULT) [address] [place] [address] GFR/1.73 sq M.predicted among non-blacks MDRD (S/P/Bld) [Vol rate/Area] 88 mL/min/{1.73_m2} Normal >=60 [facility] Comment on above: Result Comment: Repo rted eGFR is based on the CKD-EPI 2020 equation using creatinine, age, and sex. Performed By: #### X M #### [facility] (DEFAULT) [address] [place] [address] Glucose [Mass/Vol] 110 mg/dL High 70-99 [facility] Comment on above: Performed By: #### X M #### [facility] (DEFAULT) [address] [place] [address] Osmolality [Osmolality] 297 mosm/kg Normal 278-305 [facility] Comment on above: Performed By: #### X M #### [facility] (DEFAULT) [address] [place] [address] Potassium [Moles/Vol] 4.8 mmol/L Normal 3.5-5.0 [facility] Comment on above: Performed By: #### X M #### [facility] (DEFAULT) [address] [place] [address]267 Protein [Mass/Vol] 7.1 g/dL Normal 6.4-8.3 [facility] Comment on above: Performed By: #### X M #### [facility] (DEFAULT) [address] [place] [address] Sodium [Moles/Vol] 139 mmol/L Normal 135-145 [facility] Comment on above: Performed By: #### X M #### [facility] (DEFAULT) [address] [place] [address] Urea nitrogen [Mass/Vol] 24 mg/dL Normal 7-25 [facility] Comment on above: Performed By: #### X M #### [facility] (DEFAULT) [address] [place] [address] Urea nitrogen/Creatinine [Mass ratio] 26 mg/mg Normal [facility] Comment on above: Performed By: #### X M #### [facility] (DEFAULT) [address] [place] [address] MANUAL DIFFon 08-20-2023 Abs Eos Manual 0.53 High [facility] Band form neutrophils/100 WBC (Bld) 0.0 % [facility] Basophils (Bld) [#/Vol] 0.07 10*3/uL 0.00 - 0.09 K/uL [facility] Basophils/100 WBC (Bld) 0.9 % [facility] Blast Relative 1.8 % High NINF - 0.0 % [facility] Blasts Manual cnt (Bld) [#/Vol] 0.13 K/uL High NINF - 0.00 K/uL [facility] Differential cell count method Nom (Bld) Manual Differential [facility] [facility] Eosin[facility]/100 WBC (Bld) 7.1 % [facility] Lymphocytes (Bld) [#/Vol] 2.30 10*3/uL 0.83 - 3.57 K/uL [facility] Lymphocytes/100 WBC (Bld) 31.0 % [facility] Monocytes (Bld) [#/Vol] 0.07 10*3/uL Low 0.24 - 0.93 K/uL [facility] Monocytes/100 WBC (Bld) 0.9 % [facility] Myelocyte Relative 11.5 % [facility] Myelocytes (Bld) [#/Vol] 0.85 10*3/uL High NINF - 0.07 K/uL [facility] Neutrophils (Bld) [#/Vol] 3.34 10*3/uL 1.57 - 6.19 K/uL [facility] Platelets Estimate (Bld) [#/Vol] Automated platelet count confirmed by manual slide review [facility] Promyelocyte Relative 1.8 % [facility] Promyelocytes (Bld) [#/Vol] 0.13 10*3/uL High NINF - 0.07 K/uL [facility] RBC morphology finding Nom (Bld) RBC INDICES CONFIRMED WITH MANUAL SLIDE REVIEW [facility] Segmented neutrophils/100 WBC (Bld) 45.0 % [facility] No Panel Informationon 08-19 Interpretation and review of laboratory results Abnormal [facility] TYPE AND SCREENon 08-20-2023 ABO/RH(D) TYPE Positive [facility] ABO/RH(D) TYPE Positive Normal [facility] Comment on above: Performed By: #### X M #### [facility] (DEFAULT) [address] [place] [address] DNA EXTRACTION, [id number] y: Wm Bowens on 08-12-2023 [facility] HEMATOLOGIC NEOPLASM MUTATIO N PANEL, BONE MARROW OR BLOODOrdered By: Cam Christianson on 08-12-2023 Receiving Status Accessioned in Lab [facility] BONE MARROW,BASIC (ASP,BX,FE )Ordered By: Emanuel Burns on 08-11-2023 Specimen Status Specimen received in lab, results to follow on Surg Path report. [facility] BONE MARROW,BASIC (ASP,BX,FE )on 08-11-2023 Specimen Status Specimen received in lab, results to follow on Surg Path report. Normal [facility] Comment on above: Performed By: #### X M, ABORH #### [facility] (DEFAULT) [address] [place] [address] CBC AND ELECTRONIC DIFFon Abs Baso Auto Normal [facility] Comment on above: Performed By: #### X M #### [facility] (DEFAULT) [address] [place] [address] Abs Eos Auto Normal [facility] Comment on above: Performed By: #### X M #### [facility] (DEFAULT) [address] [place] [address] 67448 Abs Lymph Auto Normal [facility] Comment on above: Performed By: #### X M #### [facility] (DEFAULT) [address] [place] [address] 38377 Abs Rowan Auto Normal [facility] Comment on above: Performed By: #### X M #### [facility] (DEFAULT) [address] [place] [address]455 Basophil % Auto Normal [facility] Comment on above: Performed By: #### X M #### [facility] (DEFAULT) [address] [place] [address] Eosinophil % Auto Normal [facility] Comment on above: Performed By: #### X M #### [facility] (DEFAULT) [address] [address] Hematocrit (Bld) [Volume fraction] 18.5 % Low 39.6-48.8 [facility] Comment on above: Result Comment: This is an appended report. These results have been appended to a previously preliminary verified report. Performed By: #### X M #### [facility] (DEFAULT) [address] [address] Hemoglobin (Bld) [Mass/Vol] 6.0 g/dL Critically low 13.4-16.8 [facility] Comment on above: Result Comment: This result has been called to ROSARIO OTANICAR, RN by Graham Nathan on 08 11 2023 at 1105, and has been read back. This is an appended report. These results have been appended to a previously preliminary verified report. Performed By: #### X M #### [facility] (DEFAULT) [address] [address] Immature Grans % Normal [facility] Comment on above: Performed By: #### X M #### [facility] (DEFAULT) [address] [address] Immature Grans Absolute Normal [facility] Comment on above: Performed By: #### X M #### [facility] (DEFAULT) [address] [address] Lymphocyte % Auto Normal [facility] Comment on above: Performed By: #### X M #### [facility] (DEFAULT) [address] [address] MCV (RBC) [Entitic vol] 112.8 fL High 79.0-94.5 [facility] Comment on above: Result Comment: This is an appended report. These results have been appended to a previously preliminary verified report. Performed By: #### X M #### [facility] (DEFAULT) [address] [address] Mean Cell Hgb 36.6 pg High 26.1-33.3 [facility] Comment on above: Result Comment: This is an appended report. These results have been appended to a previously preliminary verified report. Performed By: #### X M #### [facility] (DEFAULT) [address] [address] Mean Cell Hgb Conc 32.4 g/dL Normal 31.9-36.5 [facility] Comment on above: Result Comment: This is an appended report. These results have been appended to a previously preliminary verified report. Performed By: #### X M #### [facility] (DEFAULT) [address] [address] Monocyte % Auto Normal [facility] Comment on above: Performed By: #### X M #### [facility] (DEFAULT) [address] [place] [address] Platelet mean volume (Bld) [Entitic vol] 11.9 fL Normal 8.7-12.3 [facility] Comment on above: Performed By: #### X M #### [facility] (DEFAULT) [address] [place] [address] Platelets (Bld) [#/Vol] 197 10*3/uL Normal 146-337 [facility] Comment on above: Performed By: #### X M #### [facility] (DEFAULT) [address] [place] [address] RBC (Bld) [#/Vol] 1.64 10*6/uL Low 4.38-5.83 [facility] Comment on above: Result Comment: This is an appended report. These results have been appended to a previously preliminary verified report. Performed By: #### X M #### [facility] (DEFAULT) [address] [place] [address] RBC Distribution Normal [facility] Comment on above: Result Comment: Not measured Performed By: #### X M #### [facility] (DEFAULT) [address] [place] [address] Segs + Bands Auto Normal [facility] Comment on above: Performed By: #### X M #### [facility] (DEFAULT) [address] [place] [address] Segs + Bands,Absolute Auto Normal [facility] Comment on above: Performed By: #### X M #### [facility] (DEFAULT) [address] [place] [address] WBC (Bld) [#/Vol] 6.88 10*3/uL Normal 3.73-10.10 [facility] Comment on above: Performed By: #### X M #### [facility] (DEFAULT) [address] [place] [address] COMPREHENSIVE METABOLIC PANE Joey 08-11-2023 Albumin [Mass/Vol] 4.4 g/dL Normal 3.5-5.0 [facility] Comment on above: Performed By: #### X M #### [facility] (DEFAULT) [address] [place] [address] ALP [Catalytic activity/Vol] 56 U/L Normal 32-126 [facility] Comment on above: Performed By: #### X M #### [facility] (DEFAULT) [address] [place] [address] ALT [Catalytic activity/Vol] 18 U/L Normal 10-52 [facility] Comment on above: Performed By: #### X M #### [facility] (DEFAULT) [address] [place] [address] Anion gap [Moles/Vol] 11 mmol/L Normal 7-17 [facility] Comment on above: Performed By: #### X M #### [facility] (DEFAULT) [address] [place] [address] AST [Catalytic activity/Vol] 20 U/L Normal 10-39 [facility] Comment on above: Performed By: #### X M #### [facility] (DEFAULT) [address] [place] [address] Bilirubin [Mass/Vol] 0.4 mg/dL Normal <1.5 [facility] Comment on above: Performed By: #### X M #### [facility] (DEFAULT) [address] [place] [address] Calcium [Mass/Vol] 9.0 mg/dL Normal 8.6-10.5 [facility] Comment on above: Performed By: #### X M #### [facility] (DEFAULT) [address] [place] [address] Chloride [Moles/Vol] 110 mmol/L High 98-108 [facility] Comment on above: Performed By: #### X M #### [facility] (DEFAULT) [address] [place] [address]348 CO2 [Moles/Vol] 24 mmol/L Normal 21-31 [facility] Comment on above: Performed By: #### X M #### [facility] (DEFAULT) [address] [place] [address] Creatinine [Mass/Vol] 1.17 mg/dL Normal 0.70-1.30 [facility] Comment on above: Performed By: #### X M #### [facility] (DEFAULT) [address] [place] [address] GFR/1.73 sq M.predicted among non-blacks MDRD (S/P/Bld) [Vol rate/Area] 66 mL/min/{1.73_m2} Normal >=60 [facility] Comment on above: Result Comment: Repo rted eGFR is based on the CKD-EPI 2020 equation using creatinine, age, and sex. Performed By: #### X M #### [facility] (DEFAULT) [address] [place] [address] Glucose [Mass/Vol] 119 mg/dL High 70-99 [facility] Comment on above: Performed By: #### X M #### [facility] (DEFAULT) [address] [place] [address] Osmolality [Osmolality] 304 mosm/kg Normal 278-305 [facility] Comment on above: Performed By: #### X M #### [facility] (DEFAULT) [address] [place] [address] Potassium [Moles/Vol] 5.3 mmol/L High 3.5-5.0 [facility] Comment on above: Performed By: #### X M #### [facility] (DEFAULT) [address] [place] [address] Protein [Mass/Vol] 7.2 g/dL Normal 6.4-8.3 [facility] Comment on above: Performed By: #### X M #### [facility] (DEFAULT) [address] [place] [address] Sodium [Moles/Vol] 140 mmol/L Normal 135-145 [facility] Comment on above: Performed By: #### X M #### [facility] (DEFAULT) [address] [place] [address] Urea nitrogen [Mass/Vol] 33 mg/dL High 7-25 [facility] Comment on above: Performed By: #### X M #### [facility] (DEFAULT) [address] [address] Urea nitrogen/Creatinine [Mass ratio] 28 mg/mg Normal [facility] Comment on above: Performed By: #### X M #### [facility] (DEFAULT) [address] [address] CYTOGENETIC STUDIES (PERFORM ABLE)on 08-11-2023 Band Level 400 Normal [facility] Comment on above: Order Comment: Bulmaro lobato do not use this order for add-ons Place sample for CYTOGENETICS in Sodium (NA) heparin tube.Please do not use this order for add-ons Place sample for CYTOGENETICS in Sodium (NA) heparin tube. Performed By: #### X M #### [facility] (DEFAULT) [address] [address] Clinical History Myelodysplastic Neoplasm Normal [facility] Comment on above: Order Comment: Bulmaro lobato do not use this order for add-ons Place sample for CYTOGENETICS in Sodium (NA) heparin tube.Please do not use this order for add-ons Place sample for CYTOGENETICS in Sodium (NA) heparin tube. Performed By: #### X M #### [facility] (DEFAULT) [address] [address] Culture Method: Normal [facility] Comment on above: Order Comment: Bulmaro lobato do not use this order for add-ons Place sample for CYTOGENETICS in Sodium (NA) heparin tube.Please do not use this order for add-ons Place sample for CYTOGENETICS in Sodium (NA) heparin tube. Result Comment: Proc ess: 1 Duration: 24 Hr Media: Marrow Max Mitogen: None Banding: GTW Colcemid: 30 min Number of cells: 20 Chromosome Count Analysis 43 1 45 4 46 15 Total 20 Total number of cells karyotyped: 20 Performed By: #### X M #### [facility] (DEFAULT) [address] [address] Interpretation Normal [facility] Comment on above: Order Comment: Bulmaro lobato do not use this order for add-ons Place sample for CYTOGENETICS in Sodium (NA) heparin tube.Please do not use this order for add-ons Place sample for CYTOGENETICS in Sodium (NA) heparin tube. 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 This abnormal is similar to one reportedly seen by an outside institution, which indicates continuing disease in the patient's marrow. Due to the limitations of this analysis, these results do not rule out the presence of subtle chromosomal abnormalities or additional abnormalities that could exist in a low proportion of cells. Performed By: #### X M #### [facility] (DEFAULT) [address] [place] [address] Karyotype 46,XY,del(12)(q15q24 .1 )[19]/46,XY[1] Normal [facility] Comment on above: Order Comment: Bulmaro lobato do not use this order for add-ons Place sample for CYTOGENETICS in Sodium (NA) heparin tube.Please do not use this order for add-ons Place sample for CYTOGENETICS in Sodium (NA) heparin tube. Performed By: #### X M #### [facility] (DEFAULT) [address] [place] [address] Specimen Received Bone Marrow Aspirate obtained 08/11/23 [facility] Comment on above: Order Comment: Bulmaro lobato do not use this order for add-ons Place sample for CYTOGENETICS in Sodium (NA) heparin tube.Please do not use this order for add-ons Place sample for CYTOGENETICS in Sodium (NA) heparin tube. Performed By: #### X M #### [facility] (DEFAULT) [address] [place] [address] Chronic hepatitis differenti ation between hepatitis B and C virus panelOrdered By: Samantha Garcia on 08-11-2023 HBV core IgG+IgM Ql (S) Negative Negative [facility] HBV surface Ab IA Ql (S) Negative Negative [facility] HBV surface Ag Ql (S) Negative Negative [facility] HCV Ab Ql (S) Negative Negative [facility] Interpretation and review of laboratory results Normal [facility] HEMATOLOGIC NEOPLASM MUTATIO N PANEL, BONE MARROW OR BLOODon 08-11-2023 Receiving Status Accessioned in Lab Normal [facility] Comment on above: Performed By: #### X M, ABORH #### [facility] (DEFAULT) [address] [place] [address] HEPATITIS BATTERY, CHRONICon 08-11-2023 Hep B Core Ab,Total (IgG+IgM) Negative Normal Negative [facility] Comment on above: Performed By: #### X M, ABORH #### [facility] (DEFAULT) [address] [place] [address] Hep B Surface Ab Negative Normal Negative [facility] Comment on above: Performed By: #### X M, ABORH #### [facility] (DEFAULT) [address] [place] [address] Hepatitis B Surface Ag Negative Normal Negative [facility] Comment on above: Performed By: #### X M, ABORH #### [facility] (DEFAULT) [address] [place] [address] Hepatitis C Antibody Negative Normal Negative [facility] Comment on above: Performed By: #### X M, ABORH #### [facility] (DEFAULT) [address] [place] [address] IMMUNOPHENOTYPINGon 08-11-19 24 BKR DX CODE Use Ordering Normal [facility] Comment on above: Performed By: #### X M, ABORH #### [facility] (DEFAULT) [address] [place] [address] Flow Interpreted by: Gin Lockhart MD Normal [facility] Comment on above: Performed By: #### X M, ABORH #### [facility] (DEFAULT) [address] [place] [address] IMMUNOPHENOTYPING FLOW See Scanned Result Normal [facility] Comment on above: Performed By: #### X M, ABORH #### [facility] (DEFAULT) [address] [place] [address] SAMPLE TYPE Bone Marrow Normal [facility] Comment on above: Performed By: #### X M, ABORH #### [facility] (DEFAULT) [address] [place] [address] LACTATE DEHYDROGENASEon 04-0 LDH Lactate to pyruvate reaction [Catalytic activity/Vol] 265 U/L High 100 - 190 U/L [facility] LD Total 265 U/L High 100-190 [facility] Comment on above: Performed By: #### P 3J #### [facility] (DEFAULT) [address] [place] [address] No Panel Informationon 08-10 [facility] Interpretation and review of laboratory results Abnormal [facility] Radiology Study observation (narrative) [facility] PHOSPHATE, INORGANICon 08-10 Interpretation and review of laboratory results Normal [facility] Phosphate [Mass/Vol] 3.8 mg/dL 2.2 - 4 .6 mg/dL [facility] Phosphorous 3.8 mg/dL Normal 2.2-4.6 [facility] Comment on above: Performed By: #### P 3J #### [facility] (DEFAULT) [address] [place] [address] SURG PATH REQUESTon 08-11-19 Case Report Normal [facility] Comment on above: Result Comment: Surg ical Pathology Report Case: [id number] Authorizing Provider: Thai EmanuelSKYLER-SOCIAL WORK PROGRAM COORDINATOR Collected: 08/11/2023 11:47 AM Ordering Location: [facility] Received: 08/11/2023 03:18 PM Pathologist: Gin Callejas MD Specimens: A) - BONE MARROW BIOPSY, Core B) - Bone marrow clot, Clot Performed By: #### S URGP #### [facility] (DEFAULT) [address] [place] [address] Clinical History MDS. 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 The bone marrow is hypercellular with granulocytic hyperplasia with a left shift, marked erythroid hypoplasia and marked dysmegakaryopoiesis. No significant dysplasia is identified in the erythroid precursors and granulocytes and blasts are not increased on the aspirate smear differential. The peripheral blood shows marked macrocytic anemia with left shifted granulocytes and 2% circulating blasts. Flow cytometric analysis demonstrates that blasts, defined by CD45 faint staining and low side scatter represent 2.9% of the total events analyzed and express HLA-DR+, CD13+, CD33+, CD34+, CD117+, with subpopulation(s) expressing CD7+(38.3%). The findings are most consistent with a myelodysplastic neoplasm. While blasts are not increased overall on the aspirate smear differential, given the presence of 2% circulating blasts, this would best be classified as myelodysplasia with increased blasts-1. Correlation with cytogenetic/FISH and molecular studies is recommended. Performed By: #### S URGP #### [facility] (DEFAULT) [address] [place] [address] Gross Description Normal [facility] Comment on above: Result Comment: The specimens are received in two properly labeled containers with the patient's name and accession number. A. The specimen is designated R BM BX [id number] and consists of one core of holguin bone that is 2.0 cm in length and 0.2 cm in diameter. TE 1 Note: This block will be ready after decalcification. B. The specimen is designated R BM clot 1150 and consists of a 2.2 x 1.2 x 0.4 cm aggregate of dark red blood clot. TE 1 Lab Use Only: JobID [id number] Grosser for this case was: Ayad Hagen Performed By: #### S URGP #### [facility] (DEFAULT) [address] [place] [address] Microscopic Description Normal [facility] Comment on above: Result Comment: A mi croscopic examination was performed. BONE MARROW REPORT The following specimens were interpreted to arrive at the above diagnosis: peripheral blood smear, bone marrow aspirate, decalcified trephine biopsy, iron stain and clot section CBC data and smear review (200 cells): WBC: 6.88 x K/uL; Hgb: 6.0 g/dL; Hct: 18.5%; MCV: 112.8 fl; RDW: not measured; Plt: 197 K/uL Manual differential: blasts 2%, promyelocytes 1%, myelocytes 4%, bands 0%, neutrophils 61%, lymphocytes 27%, monocytes 1%, eosinophils 3%, basophils 1% Blood smear findings: Adequate leukocytes with left shifted granulocytes and circulating blasts. Blasts are medium to large with high N/C ratios, round to irregular nuclei, fine chromatin and variably prominent nucleoli. Frankie rods are not seen. No significant dysplasia is identified. There is marked macrocytic anemia with anisocytosis, 1+ polychromasia, teardrop cells, and ovalocytes. Platelets are adequate with occasional giant forms noted. Aspirate smear quality: The aspirates are spicular and cellular. The staining is adequate. Bone marrow aspirate smear differential (500 cells): Blasts: 2% Promyelocytes: 2% Myelocytes: 30% Metamyelocytes: 21% Bands/Neutrophils: 34% Lymphocytes: 3% Monocytes: 0% Eosinophils: 4% Basophils: 0% Erythroid precursors: 4% Plasma cells: 0% M:E Ratio: The myeloid to erythroid ratio is 23.2:1. Erythropoiesis: Decreased. Predominantly normoblastic maturation. No significant dysplasia. Granulopoiesis: Increased. Progression to mature forms is noted. Blasts are not increased, and dysplasia is not evident. Megakaryocytes: Megakaryocytes are decreased and show marked (3+) dysmegakaryopoiesis as many (>50%) of the megakaryocytes show hypolobate nuclei, atypical nuclear lobation, and/or separate nuclear lobes. Lymphocytes/plasma cells: The lymphocytes and plasma cells are not increased and show unremarkable morphology. Iron stain: Iron staining is decreased. Ring sideroblasts are not identified. The iron control shows appropriate reactivity. Biopsy and clot findings: The biopsy is adequate for evaluation, and shows hypercellular marrow (75-80%) with granulocytic hyperplasia with dysmegakaryopoiesis and decreased erythropoiesis. Occasional tingible body macrophages are seen. Clot sections reveal hypercellular marrow (80%) with similar findings. Flow cytometric analysis (marrow aspirate): See separate report. Flow cytometric analysis demonstrates that blasts, defined by CD45 faint staining and low side scatter represent 2.9% of the total events analyzed and express HLA-DR+, CD13+, CD33+, CD34+, CD117+, with subpopulation(s) expressing CD7+(38.3%), and are essentially negative for the remaining markers analyzed. Flow cytometric analysis demonstrates no immunophenotypic evidence of an abnormal B or T cell population. Cytogenetics/FISH and Molecular Studies: Performed and resulted in a separate report. *The above report complies, in slightly modified form, with the guidelines of the [employer] [place] [employer] for the reporting of cancer specimens. *Hematopoietic neoplasms are classified according to: - WHO Classification of Tumours Editorial Board. Haematolymphoid tumours. Ghotra (Lilian): International Agency for Research on Cancer; (WHO classification of tumours series, 5th ed.; vol. 11, 2021). https://publications.iarc.fr. - The International Consensus Classification of Mature Lymphoid Neoplasms: a report from the Clinical Advisory Committee. Blood. 2021Jan 24;140(11):5710-3132. doi: 10.1182/blood.6014595923. Erratum in: Blood. 2022Jun 06;141(4):437. PMID: 22222773; PMCID: [id number]. -International Consensus Classification of Myeloid Neoplasms and Acute Leukemias: integrating morphologic, clinical, and genomic data. Blood. 2021Jan 24;140(11):7484-7748. doi: 10.1182/blood.3786710889. PMID: 74919629; PMCID: [id number]. Performed By: #### S URGP #### [facility] (DEFAULT) [address] [place] [address] Pathologic Diagnosis Normal [facility] Comment on above: Result Comment: A. B one marrow, right, peripheral smear, marrow aspirate, and core biopsy: Hypercellular marrow (75%) with left shifted granulocytic hyperplasia, erythroid hypoplasia, marked dysmegakaryopoiesis and no increase in blasts, see comment Peripheral blood with marked macrocytic anemia, left shifted granulocytes and 2% blasts, see comment B. Bone marrow, right, clot: Hypercellular marrow (80%) with left shifted granulocytic hyperplasia, erythroid hypoplasia, marked dysmegakaryopoiesis and no increase in blasts, see comment Performed By: #### S URGP #### [facility] (DEFAULT) [address] [place] [address] Professional Interpretation Performed at: Normal [facility] Comment on above: Result Comment: [facility] For Immediate Release to [facility]? Yes [address] [place] [address] Performed By: #### S URGP #### [facility] (DEFAULT) [address] [place] [address] URIC ACIDon 08-11-2023 Urate [Mass/Vol] 7.6 mg/dL High 3.5 - 7.0 mg/dL [facility] Urate [Mass/Vol] 7.6 mg/dL High 3.5-7.0 [facility] Comment on above: Performed By: #### P 3J #### [facility] (DEFAULT) [address] [address] URINALYSISon 08-11-2023 Appearance (U) Clear Clear [facility] Bacteria LM Ql (Urine sed) ABSENT ABSENT [facility] Color (U) Yellow Yellow [facility] Epithelial cells.squamous LM Ql (Urine sed) 0-2/hpf 0-2/hpf, 3-5/hpf = 1+ [facility] Glucose Test strip (U) [Mass/Vol] Negative Negative [facility] Interpretation and review of laboratory results Abnormal [facility] Ketones (U) [Mass/Vol] Trace Abnormal Negative [facility] Leukocyte esterase Test strip Ql (U) Negative Negative [facility] Nitrite Ql (U) Negative Negative [facility] pH (U) 6.0 [pH] 5.0 - 7.0 [facility] Protein (U) [Mass/Vol] Trace Abnormal Negative [facility] RBC (U) [#/Vol] Negative Negative [facility] RBC LM.HPF (Urine sed) [#/Area] 0-2 [facility] Specific gravity (U) [Rel density] 1.023 1.001 - 1.035 [facility] Urobilinogen (U) [Mass/Vol] 1.0 E.U./dL 0.2 E.U/dL, 1.0 E.U/dL [facility] WBC LM.HPF (Urine sed) [#/Area] 0 - 5 [facility] Appearance (U) Clear Normal Clear [facility] Comment on above: Performed By: #### U RIN #### [facility] (DEFAULT) [address] [place] [address] Bacteria ABSENT Normal ABSENT [facility] Comment on above: Performed By: #### U RIN #### [facility] (DEFAULT) [address] [place] [address] Blood Urine Negative Normal Negative [facility] Comment on above: Performed By: #### U RIN #### [facility] (DEFAULT) [address] [place] [address] Color (U) Yellow Normal Yellow [facility] Comment on above: Performed By: #### U RIN #### [facility] (DEFAULT) [address] [place] [address] Glucose Ql (U) Negative Normal Negative [facility] Comment on above: Performed By: #### U RIN #### [facility] (DEFAULT) [address] [place] [address]79 Ketones Ql (U) Trace Abnormal Negative [facility] Comment on above: Performed By: #### U RIN #### [facility] (DEFAULT) [address] [place] [address] Leukocyte esterase Test strip Ql (U) Negative Normal Negative [facility] Comment on above: Performed By: #### U RIN #### [facility] (DEFAULT) [address] [place] [address]170 Nitrites Urine Negative Normal Negative [facility] Comment on above: Performed By: #### U RIN #### [facility] (DEFAULT) [address] [place] [address] 62092 pH (U) 6.0 [pH] Normal 5.0-7.0 [facility] Comment on above: Performed By: #### U RIN #### [facility] (DEFAULT) [address] [place] [address] 73503 Protein Urine Trace Abnormal Negative [facility] Comment on above: Performed By: #### U RIN #### [facility] (DEFAULT) [address] [place] [address] RBC Urine 0-2 Normal 0-2 [facility] Comment on above: Performed By: #### U RIN #### [facility] (DEFAULT) [address] [place] [address] Specific [place] Urine 1.023 Normal 1.001-1.035 [facility] Comment on above: Performed By: #### U RIN #### [facility] (DEFAULT) [address] [place] [address]67 Squamous/Epithelial Cells 0-2/hpf Normal 0-2/hpf, 3-5/hpf = 1+ [facility] Comment on above: Performed By: #### U RIN #### [facility] (DEFAULT) [address] [place] [address]9910 Urobilinogen Urine 1.0 E.U./dL Normal 0.2 E.U/d L, 1.0 E.U/dL [facility] Comment on above: Performed By: #### U RIN #### [facility] (DEFAULT) [address] [place] [address]379 WBC Urine 0 - 5 Normal 0 - 5 [facility] Comment on above: Performed By: #### U RIN #### [facility] (DEFAULT) [address] [place] [address]37[address] URINE PROTEIN/CREA RATIO, RA NDOMon 08-11-2023 Creatinine (U) [Mass/Vol] 226.61 mg/dL Normal [facility] Comment on above: Performed By: #### X M, ABORH #### [facility] (DEFAULT) [address] [place] [address] 52556 Prot/Creat Ratio 0.079 mg/mg Normal [facility] Comment on above: Performed By: #### X M, ABORH #### [facility] (DEFAULT) [address] [place] [address] Protein Ql (U) 18 mg/dL Normal [facility] Comment on above: Performed By: #### X M, ABORH #### [facility] (DEFAULT) [address] [place] [address] 63313 ERYTHROPOIETIN (EPO)on 08-04 Erythropoietin (EPO) Qn 1924 [IU]/L High [facility] Comment on above: Test Performed by: [facility] [place] [address] [place] [address] Laundry Operator Wash Room: Bonifacio Holder M.D. Ph.D.; CLIA# [id number] Interpretation and review of laboratory results Abnormal [facility] CBC AND ELECTRONIC DIFFon 03 -25-2024 Basophils (Bld) [#/Vol] [facility] Basophils/100 WBC (Bld) [facility] DIFF STATUS SENT TO PATHOLOGIST [facility] Comment on above: This is an appended report. These results have been appended to a previously preliminary verified report. Eosinophils (Bld) [#/Vol] [facility] Eosinophils/100 WBC (Bld) [facility] Erythrocyte distribution width (RBC) [Ratio] 22.1 % High 10.9 - 14.3 % [facility] Hematocrit (Bld) [Volume fraction] 22.8 % Low 39.6 - 48.8 % [facility] Hemoglobin (Bld) [Mass/Vol] 7.5 g/dL Low 13.4 - 16.8 g/dL [facility] Immature granulocytes (Bld) [#/Vol] [facility] Immature granulocytes/100 WBC (Bld) [facility] Lymphocytes (Bld) [#/Vol] [facility] Lymphocytes/100 WBC (Bld) [facility] MCH (RBC) [Entitic mass] 36.2 pg High 26.1 - 33.3 pg [facility] MCHC (RBC) [Mass/Vol] 32.9 g/dL 31.9 - 36.5 g/dL [facility] MCV (RBC) [Entitic vol] 110.1 fL High 79.0 - 94.5 fL [facility] Monocytes (Bld) [#/Vol] [facility] Monocytes/100 WBC (Bld) [facility] Neutrophils/100 WBC (Bld) [facility] Platelet mean volume (Bld) [Entitic vol] 12.1 fL 8.7 - 12.3 fL [facility] Platelets (Bld) [#/Vol] 209 10*3/uL 146 - 337 K/uL [facility] RBC (Bld) [#/Vol] 2.07 10*6/uL Low [facility] Segmented neutrophils/100 WBC (Bld) [facility] WBC (Bld) [#/Vol] 8.70 10*3/uL 3.73 - 10.10 K/uL [facility] Abs Baso Auto Normal [facility] Comment on above: Performed By: #### P 3J #### [facility] (DEFAULT) [address] [place] [address] 28608 Abs Eos Auto Normal [facility] Comment on above: Performed By: #### P 3J #### [facility] (DEFAULT) [address] [place] [address] 28326 Abs Lymph Auto Normal [facility] Comment on above: Performed By: #### P 3J #### [facility] (DEFAULT) [address] [place] [address] 34288 Abs Rowan Auto Normal [facility] Comment on above: Performed By: #### P 3J #### [facility] (DEFAULT) [address] [place] [address] Basophil % Auto Normal [facility] Comment on above: Performed By: #### P 3J #### [facility] (DEFAULT) [address] [place] [address] DIFF STATUS SENT TO PATHOLOGIST Normal [facility] Comment on above: Result Comment: This is an appended report. These results have been appended to a previously preliminary verified report. Performed By: #### P 3J #### [facility] (DEFAULT) [address] [place] [address]142 Eosinophil % Auto Normal [facility] Comment on above: Performed By: #### P 3J #### [facility] (DEFAULT) [address] [place] [address] Hematocrit (Bld) [Volume fraction] 22.8 % Low 39.6-48.8 [facility] Comment on above: Performed By: #### P 3J #### [facility] (DEFAULT) [address] [place] [address] Hemoglobin (Bld) [Mass/Vol] 7.5 g/dL Low 13.4-16.8 [facility] Comment on above: Performed By: #### P 3J #### [facility] (DEFAULT) [address] [address] Immature Grans % Normal [facility] Comment on above: Performed By: #### P 3J #### [facility] (DEFAULT) [address] [address] Immature Grans Absolute Normal [facility] Comment on above: Performed By: #### P 3J #### [facility] (DEFAULT) [address] [place] [address] 08068 Lymphocyte % Auto Normal [facility] Comment on above: Performed By: #### P 3J #### [facility] (DEFAULT) [address] [address] MCV (RBC) [Entitic vol] 110.1 fL High 79.0-94.5 [facility] Comment on above: Performed By: #### P 3J #### [facility] (DEFAULT) [address] [address] Mean Cell Hgb 36.2 pg High 26.1-33.3 [facility] Comment on above: Performed By: #### P 3J #### [facility] (DEFAULT) [address] [address] Mean Cell Hgb Conc 32.9 g/dL Normal 31.9-36.5 [facility] Comment on above: Performed By: #### P 3J #### [facility] (DEFAULT) [address] [address] Monocyte % Auto Normal [facility] Comment on above: Performed By: #### P 3J #### [facility] (DEFAULT) [address] [address] Platelet mean volume (Bld) [Entitic vol] 12.1 fL Normal 8.7-12.3 [facility] Comment on above: Performed By: #### P 3J #### [facility] (DEFAULT) [address] [place] [address] Platelets (Bld) [#/Vol] 209 10*3/uL Normal 146-337 [facility] Comment on above: Performed By: #### P 3J #### [facility] (DEFAULT) [address] [place] [address] 09363 RBC (Bld) [#/Vol] 2.07 10*6/uL Low 4.38-5.83 [facility] Comment on above: Performed By: #### P 3J #### [facility] (DEFAULT) [address] [place] [address] 16809 RBC Distribution 22.1 % High 10.9-14.3 [facility] Comment on above: Performed By: #### P 3J #### [facility] (DEFAULT) [address] [place] [address] 56810 Segs + Bands Auto Normal [facility] Comment on above: Performed By: #### P 3J #### [facility] (DEFAULT) [address] [place] [address] 26092 Segs + Bands,Absolute Auto Normal [facility] Comment on above: Performed By: #### P 3J #### [facility] (DEFAULT) [address] [place] [address] 43229 WBC (Bld) [#/Vol] 8.70 10*3/uL Normal 3.73-10.10 [facility] Comment on above: Performed By: #### P 3J #### [facility] (DEFAULT) [address] [place] [address] 15368 COMPREHENSIVE METABOLIC PANE Joey 08-04-2023 Albumin [Mass/Vol] 4.7 g/dL 3.5 - 5.0 g/dL [facility] ALP [Catalytic activity/Vol] 67 U/L 32 - 126 U/L [facility] ALT [Catalytic activity/Vol] 21 U/L 10 - 52 U/L [facility] Anion gap [Moles/Vol] 10 mmol/L 7 - 17 mmol/L [facility] AST [Catalytic activity/Vol] 23 U/L 10 - 39 U/L [facility] Bilirubin [Mass/Vol] 0.6 mg/dL NINF - 1.5 mg/dL [facility] Calcium [Mass/Vol] 9.6 mg/dL 8.6 - 10. 5 mg/dL [facility] Chloride [Moles/Vol] 106 mmol/L 98 - 10 8 mmol/L [facility] CO2 [Moles/Vol] 25 mmol/L 21 - 31 mmol/L [facility] Creatinine [Mass/Vol] 0.95 mg/dL 0.70 - 1.30 mg/dL [facility] eGFR, CKD-EPI, Male 86 - PINF [facility] Comment on above: Reported eGFR is bas ed on the CKD-EPI 2020 equation using creatinine, age, and sex. Glucose [Mass/Vol] 109 mg/dL High 70 - 99 mg/dL [facility] Interpretation and review of laboratory results Abnormal [facility] Osmolality Calc [Osmolality] 291 [facility] Potassium [Moles/Vol] 5.0 mmol/L 3.5 - 5.0 mmol/L [facility] Protein [Mass/Vol] 7.6 g/dL 6.4 - 8.3 g/dL [facility] Sodium [Moles/Vol] 136 mmol/L 135 - 145 mmol/L [facility] Urea nitrogen [Mass/Vol] 22 mg/dL 7 - 25 mg/dL [facility] Urea nitrogen/Creatinine [Mass ratio] 23 mg/mg [facility] Albumin [Mass/Vol] 4.7 g/dL Normal 3.5-5.0 [facility] Comment on above: Performed By: #### P 3J #### [facility] (DEFAULT) [address] [place] [address] ALP [Catalytic activity/Vol] 67 U/L Normal 32-126 [facility] Comment on above: Performed By: #### P 3J #### [facility] (DEFAULT) [address] [place] [address] ALT [Catalytic activity/Vol] 21 U/L Normal 10-52 [facility] Comment on above: Performed By: #### P 3J #### [facility] (DEFAULT) [address] [place] [address] Anion gap [Moles/Vol] 10 mmol/L Normal 7-17 [facility] Comment on above: Performed By: #### P 3J #### [facility] (DEFAULT) [address] [place] [address] AST [Catalytic activity/Vol] 23 U/L Normal 10-39 [facility] Comment on above: Performed By: #### P 3J #### [facility] (DEFAULT) [address] [place] [address] 05854 Bilirubin [Mass/Vol] 0.6 mg/dL Normal <1.5 [facility] Comment on above: Performed By: #### P 3J #### [facility] (DEFAULT) [address] [place] [address] 76217 Calcium [Mass/Vol] 9.6 mg/dL Normal 8.6-10.5 [facility] Comment on above: Performed By: #### P 3J #### [facility] (DEFAULT) [address] [place] [address] 78026 Chloride [Moles/Vol] 106 mmol/L Normal 98-108 [facility] Comment on above: Performed By: #### P 3J #### [facility] (DEFAULT) [address] [place] [address] CO2 [Moles/Vol] 25 mmol/L Normal 21-31 [facility] Comment on above: Performed By: #### P 3J #### [facility] (DEFAULT) [address] [place] [address] 59372 Creatinine [Mass/Vol] 0.95 mg/dL Normal 0.70-1.30 [facility] Comment on above: Performed By: #### P 3J #### [facility] (DEFAULT) [address] [place] [address] 76576 GFR/1.73 sq M.predicted among non-blacks MDRD (S/P/Bld) [Vol rate/Area] 85 mL/min/{1.73_m2} Normal >=60 [facility] Comment on above: Result Comment: Repo rted eGFR is based on the CKD-EPI 2020 equation using creatinine, age, and sex. Performed By: #### P 3J #### [facility] (DEFAULT) [address] [place] [address]609 Glucose [Mass/Vol] 109 mg/dL High 70-99 [facility] Comment on above: Performed By: #### P 3J #### [facility] (DEFAULT) [address] [place] [address] 61263 Osmolality [Osmolality] 291 mosm/kg Normal 278-305 [facility] Comment on above: Performed By: #### P 3J #### [facility] (DEFAULT) [address] [place] [address]696 Potassium [Moles/Vol] 5.0 mmol/L Normal 3.5-5.0 [facility] Comment on above: Performed By: #### P 3J #### [facility] (DEFAULT) [address] [place] [address] 21297 Protein [Mass/Vol] 7.6 g/dL Normal 6.4-8.3 [facility] Comment on above: Performed By: #### P 3J #### [facility] (DEFAULT) [address] [place] [address] 54797 Sodium [Moles/Vol] 136 mmol/L Normal 135-145 [facility] Comment on above: Performed By: #### P 3J #### [facility] (DEFAULT) [address] [place] [address] 20983 Urea nitrogen [Mass/Vol] 22 mg/dL Normal 7-25 [facility] Comment on above: Performed By: #### P 3J #### [facility] (DEFAULT) [address] [place] [address] Urea nitrogen/Creatinine [Mass ratio] 23 mg/mg Normal [facility] Comment on above: Performed By: #### P 3J #### [facility] (DEFAULT) [address] [place] [address] ERYTHROPOIETIN (EPO)on 08-03 Erythropoietin (EPO) 1924 mIU/mL High 2.6-18.5 [facility] Comment on above: Result Comment: Test Performed by: [facility] [place] [address] [place] [address] Laundry Operator Wash Room: Bonifacio Holder M.D. Ph.D.; CLIA# [id number] Performed By: #### X M, ABORH #### [facility] (DEFAULT) [address] [place] [address] 57137 [id number] By: Radhika triana on 08-04-2023 [facility] No Panel Informationon 08-03 Interpretation and review of laboratory results Abnormal [facility] PATHOLOGIST DIFFERENTIALon 0 08-04-2023 Abs Eos Manual 0.52 High [facility] Annotation comment [Interpretation] Narrative See Comment [facility] Comment on above: Blasts confirmed by pathologist review. Left shifted granulocytes. Hypolobated neutrophils are present. Frankie rods are not seen. Correlation with flow cytometric analysis is recommended. Band form neutrophils/100 WBC (Bld) 3.0 % [facility] Basophils (Bld) [#/Vol] 0.00 10*3/uL 0.00 - 0.09 K/uL [facility] Basophils/100 WBC (Bld) 0.0 % [facility] Blast Relative 1.0 % High NINF - 0.0 % [facility] Blasts Manual cnt (Bld) [#/Vol] 0.09 K/uL High NINF - 0.00 K/uL [facility] Eosinophils/100 WBC (Bld) 6.0 % [facility] Lymphocytes (Bld) [#/Vol] 2.09 10*3/uL 0.83 - 3.57 K/uL [facility] Lymphocytes/100 WBC (Bld) 24.0 % [facility] Metamyelocyte Relative 2.0 % [facility] Metamyelocytes (Bld) [#/Vol] 0.17 10*3/uL High NINF - 0.07 K/uL [facility] Monocytes (Bld) [#/Vol] 0.17 10*3/uL Low 0.24 - 0.93 K/uL [facility] Monocytes/100 WBC (Bld) 2.0 % [facility] Myelocyte Relative 5.0 % [facility] Myelocytes (Bld) [#/Vol] 0.44 10*3/uL High NINF - 0.07 K/uL [facility] Neutrophils (Bld) [#/Vol] 5.13 10*3/uL 1.57 - 6.19 K/uL [facility] Normoblasts Polychromatophilic/10 0 cells Microscopy (Bld) 1+ Abnormal (none) [facility] Nucleated RBC/100 WBC (Bld) [Ratio] 0.0 % [facility] Ovalocytes LM Ql (Bld) Present Abnormal (none) [facility] Pathologist interpretation (Unsp spec) [Interp] Chad Barrios MD [facility] Platelets Estimate (Bld) [#/Vol] Automated platelet count confirmed by manual slide review [facility] Promyelocyte Relative 1.0 % [facility] Promyelocytes (Bld) [#/Vol] 0.09 10*3/uL High NINF - 0.07 K/uL [facility] RBC morphology finding Nom (Bld) RBC INDICES CONFIRMED WITH MANUAL SLIDE REVIEW [facility] Segmented neutrophils/100 WBC (Bld) 56.0 % [facility] Cardiac echo study Procedure Ordered By: Alyse Cowan on 07-29-2023 Ao ASC index 1.62 cm/m2 [facility] Work Phone: Ao peak taylor [facility].30 [facility]: [facility]o SOV index 1.53 cm[facility]2 [facility] Work Phone: Ao STJ index 1.17 cm[facility]m2 [facility] Work Phone: [facility]o VTI 29.50 [facility] Work Phone: Ascending [facility] 3.60 [facility] Work [facility]: AV LVOT peak gradient 6 [facility] Work [facility]: AV mean gradient 4 mmHg [facility] Work Phone: AV peak gradient 7 [facility] Work Phone: AV valve area 3.52 cm2 [facility] Work Phone: AV Velocity Ratio 0.95 [facility] Work Phone: BARRIE (continuity Vmax) 3.59 cm2 [facility] Work Phone: BARRIE (continuity VTI) 3.52 cm2 [facility] Work Phone: BARRIE index (continuity Vmax) 1.62 m/s [facility] Work Phone: BARRIE index (continuity VTI) 1.58 cm2[facility]m2 [facility] Work Phone: Avg e' pk taylor 0.08 m/s [facility] Work Phone: Avg E/e' ratio 10.35 [facility] Work Phone: Body surface area Derived from formula 2.22 m2 [facility]: BP EF 49 % [facility] Work Phone: DI (Vmax) 0.95 [facility] Work Phone: DI (VTI) 0.93 m/2 [facility] Work Phone: E wave decelartion time 310.00 msec [facility] Work Phone: e' lateral pk taylor 0.0970 m/s [facility] Work Phone: e' lateral pk taylor 0.10 m/s [facility] Work Phone: e' septal pk taylor 0.0670 m/[facility]: e' septal pk taylor 0.07 m/s [facility] Work Phone: E[facility]A ratio 1.61 [facility]: E/e' lateral ratio 8.45 [facility] Work Phone: E/e' septal ratio 12.24 [facility] Work Phone: EF SP 2CH 53 [facility] Work Phone: EF SP 4CH 50 [facility] Work Phone: EST RAP 8.00 mmHg [facility] Work Phone: EST RVSP 41 mmHg [facility] Work Phone: FS 22 % Abnormal 28 - 44 % [facility] Work Phone: Interpretation and review of laboratory results Abnormal [facility] Work Phone: IVC ostium 2.20 cm [facility] Work [facility]: IVS 0.80 cm [facility] Work Phone: LA AREA 2CH 20.50 cm2 [facility] Work Phone: LA area 4CH 23.10 cm2 [facility] Work Phone: LA ESV BP (MOD) 67 [facility]: LA ESV BP (MOD) index 30 mL/m2 [facility] Work Phone: LA ESV SP 2CH (MOD) 61 [facility] LA ESV SP 4CH (MOD) 67 mL [facility] Work Phone: LA size 4.50 cm [facility] Work Phone: LEFT ATRIAL DIAMETER INDEX 2.03 cm/m2 [facility] Work Phone: Long Strain -17.1 % [facility] Work Phone: LV EDV BP 152 mL [facility] Work Phone: LV EDV SP 2CH 172 mL [facility] Work Phone: LV EDV SP 4CH 139 mL [facility] Work Phone: LV ESV BP 77 mL [facility] Work Phone: LV ESV SP 2CH 81 mL [facility] Work Phone: LV ESV SP 4CH 69 mL [facility] Work Phone: LV mass 209.56 g [facility] Work Phone: LV Mass Index 94.4 g/m2 [facility] Work Phone: LV RWT 0.34 [facility] Work Phone: LV stroke volume BP (ml) 75 [facility] Work Phone: LV stroke volume index BP 33.78 mL/m2 [facility] Work Phone: LVIDD 5.90 cm [facility] Work Phone: LVIDS 4.60 cm [facility] Work Phone: LVOT area 3.80 cm2 [facility] Work Phone: LVOT diameter 2.20 cm [facility] Work Phone: LVOT peak taylor 1.23 m/s [facility] Work Phone: LVOT peak VTI 27.30 cm [facility] Work Phone: LVOT stroke volume [address] [facility] Work Phone: LVOT stroke volume index 46.72 ml/m2 [facility] Work Phone: Mr max taylor 5.05 m/s [facility] Work Phone: MR PISA EROA 0.18 cm2 [facility] Work Phone: MR vol 32 mL [facility] Work Phone: MR VTI 173.00 cm [facility] Work Phone: MV mean gradient 1 mmHg [facility] Work Phone: MV peak gradient 3 mmHg [facility] Work Phone: MV pk A taylor 0.51 m/s [facility] Work Phone: MV pk E taylor 0.82 m/s [facility] Work Phone: MV valve area by continuity eq 3.60 cm2 [facility] Work Phone: MV VTI 28.80 cm [facility] Work Phone: MVA (continuity VTI) 3.60 cm [facility] Work Phone: [facility] AV VTI RATIO PRE STRESS 0.93 [facility] Work Phone: [facility] ECHO LV BIPLANE SYSTOLIC VOLUME INDEX 34.68 mL/m2 [facility] Work Phone: [facility] ECHO LV BP DIASTOLIC VOLUME INDEX 68.47 mL/m2 [facility] Work Phone: [facility] ECHO MR PEAK GRADIENT 102.01 mmHg [facility] Work Phone: [facility] RVOT VTI RATIO 0.53 [facility] Work Phone: PV mean gradient 5 mmHg [facility] Work Phone: PV peak gradient 8 mmHg [facility] Work Phone: PV PK TAYLOR 1.39 m/s [facility] Work Phone: PV VTI 31.00 cm [facility] Work Phone: PW 1.00 cm [facility] Work Phone: RA area 4CH (MOD) 19.20 cm2 [facility] Work Phone: RA vol index 4CH (MOD) 26.58 mL/m2 [facility] Work Phone: Radius 0.70 cm [facility] Work Phone: Right atrium volume 4 chamber method of disks 59 mL [facility] Work Phone: RV Area diastolic 23.50 cm2 [facility] Work Phone: RV Area systolic 15.00 cm2 [facility] Work Phone: RV basal diam 4.30 cm [facility] Work Phone: RV Fractional area change 36.2 % [facility] Work Phone: RV long diam 8.10 cm [facility] Work Phone: RV mid diam 2.90 cm [facility] Work Phone: RV S' 15.70 cm/s [facility] Work Phone: RVOT peak gradient 2 mmHg [facility] Work Phone: RVOT peak taylor 0.69 m/s [facility] Work Phone: RVOT peak VTI 16.30 cm [facility] Work Phone: RVOT PLAX DIAM 3.50 cm [facility] Work Phone: Sinus 3.40 cm [facility] Work Phone: STJ 2.60 cm [facility] Work Phone: Stroke Volume 104 cm/mL [facility] Work Phone: Stroke volume index 47 [facility] Work Phone: TAPSE 2.00 cm [facility] Work Phone: TR pk grad 33 mmHg [facility] Work Phone: TR pk taylor 2.86 m/s [facility] Work Phone: Vn Nyquist 0.30 m/s [facility] Work Phone: [facility] Work Phone: Cardiac echo study Procedure on 07-29-2023 Frequent PACs/PVCs during the study. Normal left ventricular size with normal wall thickness. Mild systolic dysfunction with significant beat to beat variability, average biplane LVEF 49% GLS -17.1%. Grade I diastolic dysfunction. Mildly enlarged right ventricle with normal systolic function. Mild to moderate posteriorly directed mitral regurgitation. Otherwise no significant valvular heart disease. Mild RVSP elevation, estimated at 41 mmHg. Left Ventricle Chamber size is mildly enlarged. End-diastolic volume is normal. Normal wall thickness. No concentric nor eccentric hypertrophy. Mild global hypokinesis. Regional wall motion is normal. The ejection fraction is 49%. Ejection fraction is mildly reduced (45 - 50%). The magnitude of the left ventricular longitudinal strain is reduced. Diastolic function is consistent with impaired relaxation (grade I). Probably normal left atrial pressure. Global longitudinal strain is -17.1%. Right Ventricle Chamber size is mildly enlarged. Systolic function is normal. Right ventricular S' is 15.70 cm/s. Tricuspid annular plane systolic excursion is 2.00 cm. Fractional area change equals 36.2%. Left Atrium Chamber size is normal. Systolic blunting of pulmonary venous inflow in the pulmonary veins. Right Atrium Chamber size is mildly enlarged. IVC/SVC The inferior vena cava is enlarged. The diameter is >21 mm and decreases >50% during inspiration. Mitral Valve Normal appearing leaflets. Leaflet mobility is normal. Mild to moderate eccentric regurgitation directed posteriorly. EROA by PISA 0.18 cm2. Regurgitant volume is 32 mL. No valve stenosis. Tricuspid Valve Normal leaflets. Leaflet mobility is normal. Trace regurgitation directed centrally. No stenosis. Pulmonary artery/right heart systolic pressure is elevated, estimated at 41-45mmHg. Estimated right ventricular systolic pressure is 41 mmHg. Estimated right atrial pressure is 8.00 mmHg. Aortic Valve Trileaflet valve. Leaflet sclerosis visualized. Leaflet mobility is normal. Trace regurgitation. No stenosis. LVOT diameter: 2.20 cm. Mean gradient: 4 mmHg. Dimensionless Index by VTI: 0.93. Dimensionless Index by VMAX: 0.95. Valve area continuity VMAX: 3.59 cm2. Valve area continuity VTI: 3.52 cm2. Stroke volume index: 46.72 ml/m2. The valve Vmax is 1.30 m/s. Pulmonic Valve Normal structure. Trace regurgitation. No stenosis. Peak gradient is 8 mmHg. Mean gradient is 5 mmHg. Pericardium Appears normal. No pericardial effusion. Septum The atrial septum is normal. No evidence of patent foramen ovale determined by color flow. Aorta No dilation to extent seen. SOV: 3.40 cm. Ascendin.60 cm. Study Details A complete echocardiography study (including left ventricular strain) was performed. Imaging system used: [employer]ink[employer]. Indications Indications for study: atrial fib / atrial flutter. Wall Scoring Score Index: 2.00 The left ventricular wall motion is globally hypokinetic. [facility] Radiology Study observation (narrative) [facility] ECHOCARDIOGRAMon 07-29-2023 Echocardiography Frequent PACs/PVCs during the study. Normal left ventricular size with normal wall thickness. Mild systolic dysfunction with significant beat to beat variability, average biplane LVEF 49% GLS -17.1%. Grade I diastolic dysfunction. Mildly enlarged right ventricle with normal systolic function. Mild to moderate posteriorly directed mitral regurgitation. Otherwise no significant valvular heart disease. Mild RVSP elevation, estimated at 41 mmHg. Table formatting from the original result was not included. Images from the original result were not included. Patient Information Patient Name Wm Shea Legal Sex Male Indication for Exam Priority: Routine Dx: PAF (paroxysmal atrial fibrillation) [I48.0 (ICD-10-CM)]; Essential hypertension [I10 (ICD-10-CM)]; Hyperlipidemia, unspecified hyperlipidemia type [E78.5 (ICD-10-CM)]; FATIMAH (obstructive sleep apnea) [G47.33 (ICD-10-CM)] Comments: PAF; HTN; HLD; FATIMAH Anemia Interpretation Summary Frequent PACs/PVCs during the study. Normal left ventricular size with normal wall thickness. Mild systolic dysfunction with significant beat to beat variability, average biplane LVEF 49% GLS -17.1%. Grade I diastolic dysfunction. Mildly enlarged right ventricle with normal systolic function. Mild to moderate posteriorly directed mitral regurgitation. Otherwise no significant valvular heart disease. Mild RVSP elevation, estimated at 41 mmHg. Findings Left Ventricle Chamber size is mildly enlarged. End-diastolic volume is normal. Normal wall thickness. No concentric nor eccentric hypertrophy. Mild global hypokinesis. Regional wall motion is normal. The ejection fraction is 49%. Ejection fraction is mildly reduced (45 - 50%). The magnitude of the left ventricular longitudinal strain is reduced. Diastolic function is consistent with impaired relaxation (grade I). Probably normal left atrial pressure. Global longitudinal strain is -17.1%. Right Ventricle Chamber size is mildly enlarged. Systolic function is normal. Right ventricular S' is 15.70 cm/s. Tricuspid annular plane systolic excursion is 2.00 cm. Fractional area change equals 36.2%. Left Atrium Chamber size is normal. Systolic blunting of pulmonary venous inflow in the pulmonary veins. Right Atrium Chamber size is mildly enlarged. Septum The atrial septum is normal. No evidence of patent foramen ovale determined by color flow. Mitral Valve Normal appearing leaflets. Leaflet mobility is normal. Mild to moderate eccentric regurgitation directed posteriorly. EROA by PISA 0.18 cm2. Regurgitant volume is 32 mL. No valve stenosis. Aortic Valve Trileaflet valve. Leaflet sclerosis visualized. Leaflet mobility is normal. Trace regurgitation. No stenosis. LVOT diameter: 2.20 cm. Mean gradient: 4 mmHg. Dimensionless Index by VTI: 0.93. Dimensionless Index by VMAX: 0.95. Valve area continuity VMAX: 3.59 cm2. Valve area continuity VTI: 3.52 cm2. Stroke volume index: 46.72 ml/m2. The valve Vmax is 1.30 m/s. Tricuspid Valve Normal leaflets. Leaflet mobility is normal. Trace regurgitation directed centrally. No stenosis. Pulmonary artery/right heart systolic pressure is elevated, estimated at 41-45mmHg. Estimated right ventricular systolic pressure is 41 mmHg. Estimated right atrial pressure is 8.00 mmHg. Pulmonic Valve Normal structure. Trace regurgitation. No stenosis. Peak gradient is 8 mmHg. Mean gradient is 5 mmHg. Aorta No dilation to extent seen. SOV: 3.40 cm. Ascendin.60 cm. Pericardium Appears normal. No pericardial effusion. IVC/SVC The inferior vena cava is enlarged. The diameter is >21 mm and decreases >50% during inspiration. Reading Providers Reading Role Read Date Alyse Cowan MD Echo [place], Test Signals Collector/Analyst 07/29/2023 Wall Scoring Score Index: 2.00 The left ventricular wall motion is globally hypokinetic. Left Heart Measurements LV - Systole LVIDD 5.9 cm IVS 0.8 cm LVIDS 4.6 cm PW 1 cm LV RWT 0.34 LV Mass Index 94.4 g/m2 LV EDV BP 152 mL LV ESV BP 77 mL BP EF 49 % LV stroke volume BP (ml) 75 mL LV stroke volume index BP 33.78 mL/m2 Long Strain -17.1 % LV - Diastole MV pk E taylor 0.82 m/s MV pk A taylor 0.51 m/s E/A ratio 1.61 e' septal pk taylor 0.07 m/s e' lateral pk taylor 0.1 m/s Avg e' pk taylor 0.08 m/s E/e' septal ratio 12.24 E/e' lateral ratio 8.45 Avg E/e' ratio 10.35 LV - HCM AV LVOT peak gradient 6 mmHg Left Atrium LA size 4.5 cm LA ESV SP 4CH (MOD) 67 mL LA ESV SP 2CH (MOD) 61 mL LA ESV BP (MOD) index 30 mL/m2 Right Heart Measurements RV - 2D RV basal diam 4.3 cm RV mid diam 2.9 cm RV long diam 8.1 cm RV Area diastolic 23.5 cm2 RV Area systolic 15 cm2 RV Fractional area change 36.2 % RV - Doppler TAPSE 2 cm RV S' 15.7 cm/s Right Atrium RA vol index 4CH (MOD) (more content not included)... Abnormal [facility] Office Visit: [facility] 04-09-20 Dietary management education, guidance, and counseling (procedure) yes Invalid Interpretation Code [facility] Work Phone: Documentation of current medications (procedure) Done Invalid Interpretation Code [facility] Work Phone: Fall risk assessment No Invalid Interpretation Code [facility] Work Phone: Lab Report: Lipid Profileon 04-02-2017 Cholesterol 126 mg/dL Invalid Interpretation Code 200 [facility] Work Phone: HDL Cholesterol 61 mg/dL Invalid Interpretation Code [facility] Work Phone: LDL Cholesterol 53 mg/dL Invalid Interpretation Code 0-130 [facility] Work Phone: Triglyceride 62 mg/dL Invalid Interpretation Code [facility] Work Phone: very low density lipoproteins 12 mg/dL Invalid Interpretation Code 5-40 [facility] Work Phone: Lab Report: Liver Profileon 04-02-2017 Alanine aminotransferase (ALT) 38 U/L Invalid Interpretation Code 12-78 [facility] Work Phone: Albumin 3.7 g/dL Invalid Interpretation Code 3.4-5.0 [facility] Work Phone: Alkaline phosphatase (ALP) 71 U/L Invalid Interpretation Code 45-117 [facility] Work Phone: Aspartate aminotransferase (AST) 33 U/L Invalid Interpretation Code 15-37 [facility] Work Phone: Bilirubin (direct) 0.18 mg/dL Invalid Interpretation Code 0.00-0.30 [facility] Work Phone: Bilirubin (total) 0.60 mg/dL Invalid Interpretation Code 0.20-1.00 [facility] Work Phone: Globulin 4.1 g/dL Invalid Interpretation Code 2.2-4.2 [facility] Work Phone: Protein 7.8 g/dL Invalid Interpretation Code 6.4-8.2 [employer] Phone: Office Visit: [facility] 07-19-19 17 Dietary management education, guidance, and counseling (procedure) yes Invalid Interpretation Code [employer] Phone: Documentation of current medications (procedure) Done Invalid Interpretation Code [employer] Phone: Fall risk assessment No Invalid Interpretation Code [employer] Phone: Replaced Document: [place] Lobato DEJUAN Amanuelmarga 07-18-2016 EKG QRS axis 47 deg Invalid Interpretation Code [facility] Work Phone: Interpretation Sinus Rhythm -First degree A-V block David = 222-Nonspecific QRS widening. BORDERLINE Invalid Interpretation Code [employer] Phone: P [place] 58 deg Invalid Interpretation Code [facility] Work Phone: TN Interval 222 ms Invalid Interpretation Code [facility] Work Phone: Pulse (Heart Rate) 61 /min Invalid Interpretation Code [facility] Work Phone: QRS Duration 112 ms Invalid Interpretation Code [facility] Work Phone: QT Interval new path ms Invalid Interpretation Code [facility] Work Phone: QTc Santos 417 ms Invalid Interpretation Code [employer] Phone: T [place] -1 deg Invalid Interpretation Code [facility] Work Phone: Clinical Lists Update: Prelo hand folder 01-04-2016 Left ventricular Ejection fraction 55 % Invalid Interpretation Code [facility] Work Phone: Lab Report: Basic Metabolic Profile (BMP)on 07-17-2015 Anion gap 6 mmol/L Invalid Interpretation Code 5-15 [facility] Work Phone: BUN/Creatinine Ratio 14.2 RATIO Invalid Interpretation Code 10-20 [facility] Work Phone: Calcium 9.1 mg/dL Invalid Interpretation Code 8.5-10.1 [employer] Phone: Chloride 107 mmol/L Invalid Interpretation Code 98-107 [facility] Work Phone: CO2 28.0 mmol/L Invalid Interpretation Code 21.0-32.0 [facility] Work Phone: Creatinine 1.20 mg/dL Invalid Interpretation Code 0.70-1.30 [employer] Phone: eGFR (non-black) 78 mL/min/{1.73_m2} Invalid Interpretation Code >60 [facility] Work Phone: eGFR (non-black) 65 mL/min/{1.73_m2} Invalid Interpretation Code >60 [facility] Work Phone: Glucose mass conc 104 mg/dL Invalid Interpretation Code 70-110 [facility] Work Phone: Potassium molar conc 4.6 mmol/L Invalid Interpretation Code 3.5-5.1 [facility] Work Phone: Sodium 141 mmol/L Invalid Interpretation Code 136-145 [facility] Work Phone: Urea nitrogen 17 mg/dL Invalid Interpretation Code 7-18 [facility] Work Phone: Office Visit: [facility] 07-17-19 16 Fall risk assessment Invalid Interpretation Code [facility] Work Phone: General cardiovascular disease 10Y risk [#] Troy.D'Lexiistkel 18 % Invalid Interpretation Code [facility] Work Phone: Tobacco use CPHS Never smoker Invalid Interpretation Code [facility] Work Phone: Office Visiton 01-06-2015 cardiac risk group B Invalid Interpretation Code [facility] Work Phone: CBC (Auto) ([phone])Ordered By : Appliance Mechanic on 02-25-2013 Erythrocyte distribution width (RBC) [Ratio] 13.7 % Normal 12.3-15.4 [facility] Work Phone: Comment on above: PATIENT NOT FASTINGP ERFORMED BY: CB [facility] [id number] JounceD[place] [id number] Hematocrit (Bld) [Volume fraction] 41.6 % Normal 37.5-51.0 [facility] Work Phone: Comment on above: PATIENT NOT FASTINGP ERFORMED BY: CB [facility] [id number] [address]Dublin [place] [id number] Hemoglobin (Bld) [Mass/Vol] 14.0 g/dL Normal 12.6-17.7 [facility] Work Phone: Comment on above: PATIENT NOT FASTINGP ERFORMED BY: CB [facility] Shuftt5746 [address]Dublin [place] [id number] MCH (RBC) [Entitic mass] 30.8 pg Normal 26.6-33.0 [facility] Work Phone: Comment on above: PATIENT NOT FASTINGP ERFORMED BY: CB [facility] [id number] [address]Dublin [place] [id number] MCHC (RBC) [Mass/Vol] 33.7 g/dL Normal 31.5-35.7 [facility] Work Phone: Comment on above: PATIENT NOT FASTINGP ERFORMED BY: CB [facility] Nryuvi0412 [address]Dublin [place] [id number] MCV (RBC) [Entitic vol] 92 fL Normal 79-97 [facility] Work Phone: Comment on above: PATIENT NOT FASTINGP ERFORMED BY: ISSA LabCosarath HeardOeyklt3547 [address]Dublin [place] [id number] Platelets (Bld) [#/Vol] 291 {x10E3/uL} Normal 155-379 [facility] Work Phone: Comment on above: PATIENT NOT FASTINGP ERFORMED BY: CB [facility] Hrwyan1359 [address]Dublin [place] [id number] Platelets (Bld) [#/Vol] 291 10*3/uL Normal 155-379 [facility]; [facility] Work Phone: Comment on above: PATIENT NOT FASTINGP ERFORMED BY: CB [facility] ShafferDxqojp0372 [address]Dublin [place] [id number] RBC (Bld) [#/Vol] 4.54 {x10E6/uL} Normal 4.14-5.80 [facility] Work Phone: Comment on above: PATIENT NOT FASTINGP ERFORMED BY: CB [facility] Cjxhcb4528 [address]Dublin [place] [id number] RBC (Bld) [#/Vol] 4.54 10*6/uL Normal 4.14-5.80 [facility]; [facility] Work Phone: Comment on above: PATIENT NOT FASTINGP ERFORMED BY: CB [facility] Yezkrp4732 [address]Dublin [place] [id number] WBC (Bld) [#/Vol] 6.5 {x10E3/uL} Normal 3.4-10.8 [facility] Work Phone: Comment on above: PATIENT NOT FASTINGP ERFORMED BY: CB [facility] Rzhaab9648 [address]Dublin [place] [id number] WBC (Bld) [#/Vol] 6.5 10*3/uL Normal 3.4-10.8 [facility]; [facility] Work Phone: Comment on above: PATIENT NOT FASTINGP ERFORMED BY: CB [facility] Izhqig7808 [address]Dublin [place] [id number] Clinical Lists Update: Prelo hand folder 02-25-2013 BNP 19.1 pg/mL Invalid Interpretation Code [facility] Work Phone: Metabolic Panel, Comprehensi ve ([id number])Ordered By: Appliance Mechanic on 02-25-2013 Albumin [Mass/Vol] 4.3 g/dL Normal 3.6-4.8 [facility] Work Phone: Comment on above: PATIENT NOT FASTINGP ERFORMED BY: CB [facility] Ywajpv9946 [address] RoadDublin [place] [id number] Information: [id number] Albumin/Globulin [Mass ratio] 1.5 {ratio} Normal 1.1-2.5 [facility] Work Phone: Comment on above: PATIENT NOT FASTINGP ERFORMED BY: CB [facility] Haeaqe4735 [address]Dublin [place] [id number] Information: [id number] ALP [Catalytic activity/Vol] 79 [iU]/L Normal 44-103 [facility] Work Phone: Comment on above: PATIENT NOT FASTINGP ERFORMED BY: CB [facility] Zkzjcj0637 [address] RoadDublin [place] [id number] Information: [id number] ALP [Catalytic activity/Vol] 79 U/L Normal 44-103 [facility]; [facility] Work Phone: Comment on above: PATIENT NOT FASTINGP ERFORMED BY: CB [facility] Cfvobb5307 [address]Dublin [place] [id number] Information: [id number] ALT [Catalytic activity/Vol] 31 [iU]/L Normal 0-44 [facility] Work Phone: Comment on above: PATIENT NOT FASTINGP ERFORMED BY: CB [facility] Xvkbag4430 [address] RoadDublin [place] [id number] Information: [id number] ALT [Catalytic activity/Vol] 31 U/L Normal 0-44 [facility]; [facility] Work Phone: Comment on above: PATIENT NOT FASTINGP ERFORMED BY: ISSA Heard6370 [facility] [id number] Information: [id number] AST [Catalytic activity/Vol] 27 [iU]/L Normal 0-40 [facility] Work Phone: Comment on above: PATIENT NOT FASTINGP ERFORMED BY: ISSA LabMei Rjbrsk24[address] [facility] [id number] Information: [id number] AST [Catalytic activity/Vol] 27 U/L Normal 0-40 [facility]; [facility] Work Phone: Comment on above: PATIENT NOT FASTINGP ERFORMED BY: ISSA Pond Thriux[address] [id number] Information: [id number] Bilirubin [Mass/Vol] 0.5 mg/dL Normal 0.0-1.2 [facility] Work Phone: Comment on above: PATIENT NOT FASTINGP ERFORMED BY: ISSA Pond Nhmkpe7965 [facility] [id number] Information: [id number] Calcium [Mass/Vol] 9.6 mg/dL Normal 8.6-10.2 [facility] Work Phone: Comment on above: PATIENT NOT FASTINGP ERFORMED BY: ISSA PondJulie [place] [id number] [facility] [id number] Information: [id number] Chloride [Moles/Vol] 104 mmol/L Normal 97-108 [facility] Work Phone: Comment on above: PATIENT NOT FASTINGP ERFORMED BY: [facility] Agixps8355 [facility] [id number] Information: [id number] CO2 [Moles/Vol] 21 mmol/L Normal 19-28 [facility] Work Phone: Comment on above: PATIENT NOT FASTINGP ERFORMED BY: CB [facility] [id number] [address]ar RoadDublin [place] [id number] Information: [id number] Creatinine [Mass/Vol] 1.06 mg/dL Normal 0.76-1.[address] [facility] Internal Medicine Work Phone: Comment on above: PATIENT NOT FASTINGP ERFORMED BY: CB [facility] [id number] Avelar RoadSwain Community Hospitalin [place] [id number] Information: [id number] GFR/1.73 sq M predicted among blacks CKD-EPI (S/P/Bld) [Vol rate/Area] 87 mL/min/1.73 Normal [facility] Work Phone: Comment on above: PATIENT NOT FASTINGP ERFORMED BY: CB [facility] [id number] Avelar RoadSwain Community Hospitalin [place] [id number] Information: [id number] GFR/1.73 sq M predicted among non-blacks CKD-EPI (S/P/Bld) [Vol rate/Area] 75 mL/min/1.73 Normal [facility] Work Phone: Comment on above: PATIENT NOT FASTINGP ERFORMED BY: CB [facility] [id number] [address] [facility] [place] [id number] Information: [id number] Globulin (S) [Mass/Vol] 2.8 g/dL Normal 1.5-4.5 [facility] Internal Medicine Work Phone: Comment on above: PATIENT NOT FASTINGP ERFORMED BY: CB [facility] [id number] [address] [facility] [place] [id number] Information: [id number] Glucose [Mass/Vol] 98 mg/dL Normal 65-99 [facility] Internal Medicine Work Phone: Comment on above: PATIENT NOT FASTINGP ERFORMED BY: CB [facility] Rtcarc9641 [address]velar RoadSwain Community Hospitalin [place] [id number] Information: [id number] Potassium [Moles/Vol] 5.1 mmol/L Normal 3.5-5.[address] [facility] Internal Medicine Work Phone: Comment on above: PATIENT NOT FASTINGP ERFORMED BY: ISSA Heard6370 [facility] [id number] Information: [id number] Protein [Mass/Vol] 7.1 g/dL Normal 6.0-8.5 [facility] Internal Medicine Work Phone: Comment on above: PATIENT NOT FASTINGP ERFORMED BY: [facility]A [facility] Cwztoe3287 [facility] [id number] Information: [id number] Sodium [Moles/Vol] 143 mmol/L Normal 134-144 [facility] Internal Medicine Work Phone: Comment on above: PATIENT NOT FASTINGP ERFORMED BY: [facility] Wazfhf0975 [facility] [id number] Information: [id number] Urea nitrogen [Mass/Vol] 17 mg/dL Normal 8-27 [facility] Internal Medicine Work Phone: Comment on above: PATIENT NOT FASTINGP ERFORMED BY: [facility] Frcccw2274 [facility] [id number] Information: [id number] Urea nitrogen/Creatinine [Mass ratio] 16 mg/mg Normal 10-22 [facility] Internal Medicine Work Phone: Comment on above: PATIENT NOT FASTINGP ERFORMED BY: CB [facility] Ftzszl2812 [facility] [id number] Information: [id number] PSA (PROSTATE SPECIFIC ANTIG EN) (V76.44)Ordered By: Appliance Mechanic on 02-25-2013 Prostate specific Ag [Mass/Vol] 1.0 ng/mL Normal 0.0-4.0 [facility] Internal Medicine Work Phone: Comment on above: Charito ECLIA methodol ogy. .According to the [place] [employer], Serum PSA shoulddecrease and remain at undetectable levels after radicalprostatectomy. The AUA defines biochemical recurrence as an initialPSA value 0.2 ng/mL or greater followed by a subsequent confirmatoryPSA value 0.2 ng/mL or greater.Values obtained with different assay methods or kits cannot be usedinterchangeably. Results cannot be interpreted as absolute evidenceof the presence or absence of malignant disease. PATIENT NOT FASTINGP ERFORMED BY: ISSA [facility] Acsvxm2538 [facility] [id number] Clinical Lists Update: Pre01-13-2013 Cholesterol to HDL Ratio 3.1 {ratio} Invalid Interpretation Code [facility] Work Phone: Glucose mass conc 100 mg/dL Invalid Interpretation Code [facility] Work Phone: Clinical Lists Update: 09-08-2012 Erythrocytes (RBC) 4.54 10*6/uL Invalid Interpretation Code [facility] Work Phone: Hematocrit (HCT) 41.6 % Invalid Interpretation Code [facility] Work Phone: Hemoglobin mass conc (Bld) 13.8 g/dL Invalid Interpretation Code [facility] Work Phone: MCH 30.4 pg Invalid Interpretation Code [facility] Work Phone: MCV 91.6 fL Invalid Interpretation Code [facility] Work Phone: Platelets 303 10*3/mm3 Invalid Interpretation Code [facility] Work Phone: WBC (Leukocytes) 6.4 10*3/uL Invalid Interpretation Code [facility] Work Phone: Replaced Document: [place] ZAIDI Observationson 07-13-2012 Pulse (Heart Rate) 431 ms Invalid Interpretation Code [facility] Work Phone: Rapid Flu ([phone] x 2)Ordered By: Yusra Emanuel on 05-08-2012 FLUAV Ag IA Ql (Throat) Positive Normal [facility] Work Phone: Comment on above: A FLUAV Ag IA Ql (Throat) Positive Normal [facility]; [facility] Work Phone: Comment on above: A Coumadin Management: Coumadi n Managementon 12-24-2011 INR Coag RelTime (PPP) 1.4 {INR} Normal [facility] Work Phone: Prothrombin time (PT) Coag time (PPP) 15.8 s Invalid Interpretation Code [facility] Work Phone: Lab Report: PTon 12-24-2011 PTP 15.8 SECONDS High 11.9-14.4 [facility] Work Phone: Rapid Strep Test, Office ([phone])Ordered By: Brittney Woody on 05-10-2010 S. pyogenes Ag EIA Ql (Throat) Negative Normal [facility]; [facility] Work Phone: S. pyogenes Ag IA Ql (Unsp spec) Negative Normal [facility] Work Phone: Rapid Strep Test, Office ([phone])on 06-23-2007 S. pyogenes Ag EIA Ql (Throat) Negative Normal [facility]; [facility] Work Phone: Comment on above: aw S. pyogenes Ag IA Ql (Unsp spec) Negative Normal [facility] Work Phone: Comment on above: aw Vital Signs Date Time Vital Sign Value Performing Clinician Facility 01-07-2024 10:11-0400 Body mass index (BMI) [Ratio] 32.29 kg/m2 Jimmy Herrera MD Work Phone: [facility] 01-07-2024 10:11-0400 Body weight 105.01 kg Jimmy Herrera MD Work Phone: [facility] 01-07-2024 10:11-0400 Diastolic blood pressure 60 mm[Hg] Jimmy Herrera MD Work Phone: [facility] 01-07-2024 10:11-0400 Heart rate 52 /min Jimmy Herrera MD Work Phone: [facility] 01-07-2024 10:11-0400 Systolic blood pressure 122 mm[Hg] Jimmy Herrera MD Work Phone: [facility] 01-07-2024 09:27-0400 Body height 180.3 cm Jimmy Herrera MD Work Phone: [facility] 01-07-2024 09:27-0400 Body mass index (BMI) [Ratio] 32.08 kg/m2 Jimym Herrera MD Work Phone: [facility] 01-07-2024 09:27-0400 Body weight 104.33 kg Jimmy Herrera MD Work Phone: [facility] 01-07-2024 09:27-0400 Diastolic blood pressure 60 mm[Hg] Jimmy Herrera MD Work Phone: [facility] 01-07-2024 09:27-0400 Heart rate 61 /min Jimmy Herrera MD Work Phone: [facility] 01-07-2024 09:27-0400 Systolic blood pressure 122 mm[Hg] Jimmy Herrera MD Work Phone: [facility] 12-29-2023 12:00-0400 Body mass index (BMI) [Ratio] 33.35 kg/m2 [facility] Ap Operator Work Phone: [facility] 12-29-2023 12:00-0400 Body temperature 98.2 [degF] [facility] Ap Operator Work Phone: [facility] 12-29-2023 12:00-0400 Body weight 105.42 kg [facility] Ap Operator Work Phone: [facility] 12-29-2023 12:00-0400 Diastolic blood pressure 67 mm[Hg] [facility] Ap Operator Work Phone: [facility] 12-29-2023 12:00-0400 Heart rate 82 /min [facility] Ap Operator Work Phone: [facility] 12-29-2023 12:00-0400 Respiratory rate 16 /min [facility] Ap Operator Work Phone: [facility] 12-29-2023 12:00-0400 Systolic blood pressure 132 mm[Hg] [facility] Ap Operator Work Phone: [facility] 12-02-2023 08:53-0400 Body height 177.[address] Work Phone: [facility] 12-02-2023 08:53-0400 Body mass index (BMI) [Ratio] 32.8 kg/m2 Alex Jami RD Work Phone: [facility] 12-02-2023 08:53-0400 Body weight 103.[address] Work Phone: [facility] 12-02-2023 08:34-0400 Body height 177.8 cm Akua Cintron MD Work Phone: [facility] 12-02-2023 08:34-0400 Body mass index (BMI) [Ratio] 32.8 kg/m2 Akua Cintron MD Work Phone: [facility] 12-02-2023 08:34-0400 Body temperature 98.1 [degF] Akua Cintron MD Work Phone: [facility] 12-02-2023 08:34-0400 Body weight 103.69 kg Auka Cintron MD Work Phone: [facility] 12-02-2023 08:34-0400 Diastolic blood pressure 59 mm[Hg] Akua Cintron MD Work Phone: [facility] 12-02-2023 08:34-0400 Heart rate 80 /min Akua Cintron MD Work Phone: [facility] 07-23-2024 08:34-0400 Respiratory rate 18 /min Akua Cintron MD Work Phone: [facility] 12-02-2023 08:34-0400 SaO2% (BldA) [Mass fraction] 99 % Akua Cintron MD Work Phone: [facility] 12-02-2023 08:34-0400 Systolic blood pressure 126 mm[Hg] Akua Cintron MD Work Phone: [facility] 11-27-2023 15:00-0400 Body mass index (BMI) [Ratio] 32.08 kg/m2 Niurka Laboy MD Work Phone: [facility] 11-27-2023 15:00-0400 Body temperature 98.8 [degF] Niurka Laboy MD Work Phone: [facility] 11-27-2023 15:00-0400 Body weight 104.33 kg Niurka Laboy MD Work Phone: [facility] 11-27-2023 15:00-0400 Diastolic blood pressure 64 mm[Hg] Niurka Laboy MD Work Phone: [facility] 11-27-2023 15:00-0400 Heart rate 101 /min Niurka Laboy MD Work Phone: [facility] 11-27-2023 15:00-0400 Respiratory rate 17 /min Niurka Laboy MD Work Phone: [facility] 11-27-2023 15:00-0400 SaO2% (BldA) [Mass fraction] 99 % Niurka Laboy MD Work Phone: [facility] 11-27-2023 15:00-0400 Systolic blood pressure 128 mm[Hg] Niurka Laboy MD Work Phone: [facility] 10-30-2023 12:29-0400 Body mass index (BMI) [Ratio] 31.66 kg/m2 Bandar Swanson MD Work Phone: [facility] 10-30-2023 12:29-0400 Body weight 102.97 kg Bandar Swanson MD Work Phone: [facility] 10-30-2023 12:29-0400 Diastolic blood pressure 62 mm[Hg] Bandar Swanson MD Work Phone: [facility] 10-30-2023 12:29-0400 Heart rate 61 /min Bandar Swanson MD Work Phone: [facility] 10-30-2023 12:29-0400 Systolic blood pressure 137 mm[Hg] Bandar Swanson MD Work Phone: [facility] 10-30-2023 12:28-0400 Body height 180.3 cm Bandar Swanson MD Work Phone: [facility] 10-07-2023 11:07-0400 Body mass index (BMI) [Ratio] 32.12 kg/m2 Mike Borate MBBS Work Phone: [facility] 10-07-2023 11:07-0400 Body temperature 98.8 [degF] Mike Borate MBBS Work Phone: [facility] 10-07-2023 11:07-0400 Body weight 104.46 kg Mike Borate MBBS Work Phone: [facility] 10-07-2023 11:07-0400 Diastolic blood pressure 69 mm[Hg] Mike Borate MBBS Work Phone: [facility] 10-07-2023 11:07-0400 Heart rate 95 /min Mike Borate MBBS Work Phone: [facility] 10-07-2023 11:07-0400 Respiratory rate 18 /min Mike Borate MBBS Work Phone: [facility] 10-07-2023 11:07-0400 SaO2% (BldA) [Mass fraction] 97 % Mike Lewis MBBS Work Phone: [facility] 10-07-2023 11:07-0400 Systolic blood pressure 133 mm[Hg] Mike Kyleate MBBS Work Phone: [facility] 10-02-2023 10:19-0400 Body height 180.3 cm Jimmy Herrera MD Work Phone: [facility] 10-02-2023 10:19-0400 Body mass index (BMI) [Ratio] 31.8 kg/m2 Jimmy Herrera MD Work Phone: [facility] 10-02-2023 10:19-0400 Body weight 103.42 kg Jimmy Herrera MD Work Phone: [facility] 10-02-2023 10:19-0400 Heart rate 92 /min Jimmy Herrera MD Work Phone: [facility] 09-04-2023 12:07-0400 Body height 177.8 cm Bandar Swanson MD Work Phone: [facility] 09-04-2023 12:07-0400 Body mass index (BMI) [Ratio] 33.15 kg/m2 Bandar Swanson MD Work Phone: [facility] 09-04-2023 12:07-0400 Body weight 104.78 kg Bandar Swanson MD Work Phone: [facility] 09-04-2023 12:07-0400 Diastolic blood pressure 80 mm[Hg] Bandar Swanson MD Work Phone: [facility] 09-04-2023 12:07-0400 Heart rate 110 /min Bandar Swanson MD Work Phone: [facility] 09-04-2023 12:07-0400 Systolic blood pressure 132 mm[Hg] Bandar Swanson MD Work Phone: [facility] 08-20-2023 11:19-0400 Body mass index (BMI) [Ratio] 33.5 kg/m2 Eileen Echols [employer]ER[employer]SOCIAL WORK PROGRAM COORDINATOR Work Phone: [facility] 08-20-2023 11:19-0400 Body temperature 98.2 [degF] Eileen Echols H[employer] P[employer]ER[employer]SOCIAL WORK PROGRAM COORDINATOR Work Phone: [facility] 08-20-2023 11:19-0400 Body weight 105.92 kg Eileen Echols H[employer] P[employer]ER[employer]SOCIAL WORK PROGRAM COORDINATOR Work Phone: [facility] 08-20-2023 11:19-0400 Diastolic blood pressure 61 mm[Hg] Eileen Echols H[employer] P[employer]ER[employer]SOCIAL WORK PROGRAM COORDINATOR Work Phone: [facility] 08-20-2023 11:19-0400 Heart rate 73 /min Eileen Echols H[employer] P[employer]ER[employer]SOCIAL WORK PROGRAM COORDINATOR Work Phone: [facility] 08-20-2023 11:19-0400 Respiratory rate 18 /min Eileen Echols H[employer] P[employer]ER[employer]SOCIAL WORK PROGRAM COORDINATOR Work Phone: [facility] 08-20-2023 11:19-0400 SaO2% (BldA) [Mass fraction] 95 % Eileen Echols H[employer] P[employer]ER[employer]SOCIAL WORK PROGRAM COORDINATOR Work Phone: [facility] 08-20-2023 11:19-0400 Systolic blood pressure 131 mm[Hg] Eileen Echols H[employer] P[employer]ER[employer]SOCIAL WORK PROGRAM COORDINATOR Work Phone: [facility] 08-11-2023 08:56-0400 Body mass index (BMI) [Ratio] 33.32 kg/m2 Thai Emanuel HOT PACKER-SOCIAL WORK PROGRAM COORDINATOR Work Phone: [facility] 08-11-2023 08:56-0400 Body temperature 98.4 [degF] Thai EDWARDS Work Phone: [facility] 08-11-2023 08:56-0400 Body weight 105.33 kg Thai EDWARDS Work Phone: [facility] 08-11-2023 08:56-0400 Diastolic blood pressure 53 mm[Hg] Thai EDWARDS Work Phone: [facility] 08-11-2023 08:56-0400 Heart rate 71 /min Thai EDWARDS Work Phone: [facility] 08-11-2023 08:56-0400 Respiratory rate 16 /min Thai Emanuel APRN-FRANCISCO Work Phone: [facility] 08-11-2023 08:56-0400 SaO2% (BldA) [Mass fraction] 100 % Thai EDWARDS Work Phone: [facility] 08-11-2023 08:56-0400 Systolic blood pressure 119 mm[Hg] Thai EDWARDS Work Phone: [facility] 08-04-2023 09:48-0400 Body mass index (BMI) [Ratio] 32.99 kg/m2 ANIRUDH Barba MD Work Phone: [facility] 08-04-2023 09:48-0400 Body temperature 98.4 [degF] ANIRUDH Barba MD Work Phone: [facility] 08-04-2023 09:48-0400 Body weight 104.28 kg ANIRUDH Barba MD Work Phone: [facility] 08-04-2023 09:48-0400 Diastolic blood pressure 62 mm[Hg] ANIRUDH Barba MD Work Phone: [facility] 08-04-2023 09:48-0400 Heart rate 85 /min ANIRUDH Barba MD Work Phone: [facility] 08-04-2023 09:48-0400 Respiratory rate 18 /min ANIRUDH Barba MD Work Phone: [facility] 08-04-2023 09:48-0400 SaO2% (BldA) [Mass fraction] 100 % ANIRUDH Barba MD Work Phone: [facility] 08-04-2023 09:48-0400 Systolic blood pressure 124 mm[Hg] ANIRUDH Barba MD Work Phone: [facility] 07-29-2023 10:40-0400 Body height 177.8 cm Jimmy Herrera MD Work Phone: [facility] 07-29-2023 10:40-0400 Body mass index (BMI) [Ratio] 33.15 kg/m2 Jimmy Herrera MD Work Phone: [facility] 07-29-2023 10:40-0400 Body weight 104.8 kg Jimmy Herrera MD Work Phone: [facility] 07-29-2023 10:40-0400 Diastolic blood pressure 72 mm[Hg] Jimmy Herrera MD Work Phone: [facility] 07-29-2023 10:40-0400 Systolic blood pressure 141 mm[Hg] Jimmy Herrera MD Work Phone: [facility] 06-24-2023 14:54-0500 Body height 177.8 cm Jimmy Herrera MD Work Phone: [facility] 06-24-2023 14:54-0500 Body mass index (BMI) [Ratio] 33 kg/m2 Jimmy Herrera MD Work Phone: [facility] 06-24-2023 14:54-0500 Body weight 104.33 kg Jimmy Herrera MD Work Phone: [facility] 06-24-2023 14:54-0500 Diastolic blood pressure 62 mm[Hg] Jmimy Herrera MD Work Phone: [facility] 06-24-2023 14:54-0500 Heart rate 62 /min Jimmy Herrera MD Work Phone: [facility] 06-24-2023 14:54-0500 Systolic blood pressure 126 mm[Hg] Jimmy Herrera MD Work Phone: [facility] 04-09-2017 08:19-0500 BMI (Body Mass Index) 30.82 kg/m2 Jimmy Herrera MD [facility] Work Phone: 04-09-2017 08:19-0500 BP Diastolic 64 mm[Hg] Jimmy Herrera MD [facility] Work Phone: 04-09-2017 08:19-0500 BP Systolic 140 mm[Hg] [facility] Work Phone: 04-09-2017 08:19-0500 Height 180.34 cm Jimmy Herrera MD [facility] Work Phone: 04-09-2017 08:19-0500 Pulse (Heart Rate) 56 /min [facility] Work Phone: 04-09-2017 08:19-0500 Respiratory Rate 20 /min [facility] Work Phone: 04-09-2017 08:19-0500 Weight 100.25 kg [facility] Work Phone: 07-18-2016 10:21-0500 BMI (Body Mass Index) 32.07 kg/m2 Eileen Bianchi PA-C [facility] Work Phone: 07-18-2016 10:21-0500 BP Diastolic 76 mm[Hg] Eileen Bianchi PA-C [facility] Work Phone: 07-18-2016 10:21-0500 BP Systolic 140 mm[Hg] Eileen Bianchi PA-C [facility] Work Phone: 07-18-2016 10:21-0500 Height 180.34 cm Eileen Bianchi PA-C [facility] Work Phone: 07-18-2016 10:21-0500 Pulse (Heart Rate) 61 /min Eileen Bianchi PA-C [facility] Work Phone: 07-18-2016 10:21-0500 Respiratory Rate 20 /min Eileen Bianchi PA-C [facility] Work Phone: 07-18-2016 10:21-0500 Weight 104.33 kg Eileen Bianchi PA-C [facility] Work Phone: 01-05-2016 08:40-0400 BSA (Body Surface Area) 2.27 m2 Eileen Bianchi PA-C [facility] Work Phone: 03-15-2013 08:14-0500 BMI (Body Mass Index) 32.08 kg/m2 Tracijulien Limonjohnnie [facility] Work Phone: 03-15-2013 08:14-0500 Body weight 104.33 kg Tracijulien Sheehan [facility] Work Phone: 03-15-2013 08:14-0500 BP Diastolic 80 mm[Hg] [facility] Work Phone: Comment on above: Patient Position: Sitting; Cuff Location : Left Arm; Cuff Size: Standard 03-15-2013 08:14-0500 BP Systolic 160 mm[Hg] Traci Sheehan [facility] Work Phone: Comment on above: Patient Position: Sitting; Cuff Location : Left Arm; Cuff Size: Standard 03-15-2013 08:14-0500 BSA (Body Surface Area) 2.24 m2 Traci Sheehan [facility] Work Phone: 03-15-2013 08:14-0500 Height 180.34 cm Traci Sheehan [facility] Work Phone: 03-15-2013 08:14-0500 Pulse (Heart Rate) 82 /min Traci Sheehan [facility] Work Phone: Comment on above: Pattern: Regular 03-15-2013 08:14-0500 Pulse Oximetry 98 % Nisha Carreno [facility] Work Phone: Comment on above: Room air 03-15-2013 08:14-0500 Respiratory Rate 16 /min Traci Sheehan [facility] Work Phone: Comment on above: Pattern: Unlabored 03-15-2013 08:14-0500 SaO2% (BldA) [Mass fraction] 98 % [facility]; [facility] Work Phone: Comment on above: Room air 02-25-2013 11:48-0400 BMI (Body Mass Index) 32.08 kg/m2 [facility] Work Phone: 02-25-2013 11:48-0400 Body weight 104.33 kg [facility] Work Phone: 02-25-2013 11:48-0400 BP Diastolic 78 mm[Hg] [facility] Work Phone: Comment on above: Patient Position: Sitting; Cuff Location : Left Arm; Cuff Size: Standard 02-25-2013 11:48-0400 BP Systolic 150 mm[Hg] [facility] Work Phone: Comment on above: Patient Position: Sitting; Cuff Location : Left Arm; Cuff Size: Standard 02-25-2013 11:48-0400 BSA (Body Surface Area) 2.24 m2 [facility] Work Phone: 02-25-2013 11:48-0400 Height 180.34 cm Traci Sheehan [facility] Work Phone: 02-25-2013 11:48-0400 Pulse (Heart Rate) 77 /min Traci Sheehan [facility] Work Phone: Comment on above: Pattern: Regular 02-25-2013 11:48-0400 Pulse Oximetry 98 % Nisha Carreno [facility] Work Phone: Comment on above: Room air 02-25-2013 11:48-0400 Respiratory Rate 16 /min Traci Sheehan [facility] Work Phone: Comment on above: Pattern: Unlabored 02-25-2013 11:48-0400 SaO2% (BldA) [Mass fraction] 98 % Traci Sheehan [facility] Internal [facility]; [facility] Work Phone: Comment on above: Room air 02-12-2013 07:37-0400 BMI (Body Mass Index) 32.08 kg/m2 Nisha Carreno [facility] Work Phone: 02-12-2013 07:37-0400 Body Temperature 98.3 [degF] Nisha Carreno [facility] Work Phone: Comment on above: Method: Oral 02-12-2013 07:37-0400 Body weight 104.33 kg Nisha Carreno [facility] Work Phone: 02-12-2013 07:37-0400 BP Diastolic 80 mm[Hg] Nisha Carreno [facility] Work Phone: Comment on above: Patient Position: Sitting; Cuff Location : Left Arm; Cuff Size: Standard 02-12-2013 07:37-0400 BP Systolic 130 mm[Hg] Nisha Carreno [facility] Work Phone: Comment on above: Patient Position: Sitting; Cuff Location : Left Arm; Cuff Size: Standard 02-12-2013 07:37-0400 BSA (Body Surface Area) 2.24 m2 Nisha Carreno [facility] Work Phone: 02-12-2013 07:37-0400 Height 180.34 cm Nisha Carreno [facility] Work Phone: 02-12-2013 07:37-0400 Pulse (Heart Rate) 84 /min Nisha Carreno [facility] Work Phone: Comment on above: Pattern: Regular 02-12-2013 07:37-0400 Pulse Oximetry 98 % Nisha Carreno [facility] Work Phone: Comment on above: Room air 02-12-2013 07:37-0400 Respiratory Rate 18 /min Nisha Carreno [facility] Work Phone: 02-12-2013 07:37-0400 SaO2% (BldA) [Mass fraction] 98 % Nisha Carreno DO Work Phone: [facility]; [facility] Work Phone: Comment on above: Room air 05-08-2012 07:25-0500 Body Temperature 101.7 [degF] Yusra Emanuel RN [facility] Work Phone: Comment on above: Method: Oral 05-08-2012 07:25-0500 BP Diastolic 84 mm[Hg] Yusra Emanuel RN [facility] Work Phone: Comment on above: Patient Position: Sitting; Cuff Location : Left Arm; Cuff Size: Standard 05-08-2012 07:25-0500 BP Systolic 150 mm[Hg] Yusra Emanuel RN [facility] Work Phone: Comment on above: Patient Position: Sitting; Cuff Location : Left Arm; Cuff Size: Standard 05-08-2012 07:25-0500 Pulse (Heart Rate) 86 /min Yusra Emanuel RN [facility] Work Phone: Comment on above: Pattern: Regular 05-08-2012 07:25-0500 Respiratory Rate 18 /min Yusra Emanuel RN [facility] Work Phone: Comment on above: Pattern: Unlabored 06-26-2011 15:11-0500 BP Diastolic 74 mm[Hg] Eileen Bianchi PA-C [facility] Work Phone: 06-26-2011 15:11-0500 BP Systolic 142 mm[Hg] Eileen Bianchi PA-C [facility] Work Phone: 05-10-2010 08:33-0500 Body Temperature 99.5 [degF] Brittney Woody RN [facility] Work Phone: Comment on above: Method: Oral 05-10-2010 08:33-0500 BP Diastolic 84 mm[Hg] Brittney Woody RN [facility] Work Phone: Comment on above: Patient Position: Sitting; Cuff Location : Left Arm; Cuff Size: Large 05-10-2010 08:33-0500 BP Systolic 128 mm[Hg] Brittney Woody RN [facility] Work Phone: Comment on above: Patient Position: Sitting; Cuff Location : Left Arm; Cuff Size: Large 05-10-2010 08:33-0500 Pulse (Heart Rate) 68 /min Brittney Woody RN [facility] Work Phone: Comment on above: Pattern: Regular 05-10-2010 08:33-0500 Respiratory Rate 20 /min Brittney Woody RN [facility] Work Phone: Comment on above: Pattern: Unlabored 06-23-2007 09:42-0500 Body Temperature 99.4 [degF] Rosita Calderon [facility] Work Phone: Comment on above: Method: Oral 06-23-2007 09:42-0500 Body weight 0 kg Rosita Calderon [facility] Work Phone: 06-23-2007 09:42-0500 BP Diastolic 80 mm[Hg] Rosita Calderon [facility] Work Phone: Comment on above: Patient Position: Sitting; Cuff Location : Right Arm; Cuff Size: Standard 06-23-2007 09:42-0500 BP Systolic 120 mm[Hg] Rosita Calderon [facility] Work Phone: Comment on above: Patient Position: Sitting; Cuff Location : Right Arm; Cuff Size: Standard 06-23-2007 09:42-0500 Head Circumference 0 cm Nisha Carreno [facility] Work Phone: 06-23-2007 09:42-0500 Head Occipital-frontal circumference 0 cm Rosita Calderon [facility]; [facility] Work Phone: 06-23-2007 09:42-0500 Height 0 cm Rosita Calderon [facility] Work Phone: 06-23-2007 09:42-0500 Pulse (Heart Rate) 88 /min Rosita Calderon [facility] Work Phone: Comment on above: Pattern: Regular 06-23-2007 09:42-0500 Respiratory Rate 16 /min Rosita Calderon [facility] Work Phone: Comment on above: Pattern: Unlabored Encounters Encounter Date Encounter Type Care Provider Facility Start: 03-19-2024 ambulatory [facility] Facility:Leyla TRACY [facility] Start: 02-18-2024 ambulatory [facility] Facility:O TRACY [facility] Start: 01-19-2024 End: 01-19-2024 ambulatory Seda Freire [facility] Start: 01-19-2024 End: 01-19-2024 Patient encounter procedure Seda Freire RN [facility] Start: 01-16-2024 [facility] Facility:Leyla TRACY [facility] Start: 01-15-2024 [facility] Facility:Leyla TRACY [facility] Start: 01-07-2024 End: 01-07-2024 Office outpatient visit 25 minutes Jimmy Herrera MD Work Phone: [facility] [place] Comment on above: PAF (paroxysmal atri al fibrillation) (Primary Dx); Nonrheumatic mitral valve insufficiency; Essential hypertension; Hyperlipidemia, unspecified hyperlipidemia type Start: 01-07-2024 ambulatory JIMMY HERRERA Facili ty:[facility] Start: 01-07-2024 End: 01-07-2024 Subsequent hospital visit by physician Jimmy Herrera MD Work Phone: [facility] [place] Start: 01-05-2024 [facility] Facility:Leyla SÁNCHEZ Start: 01-05-2024 ambulatory [facility]F Facility:O TRACY Start: 12-30-2023 ambulatory [facility] SELF Facility:O TRACY Start: 12-29-2023 End: 12-29-2023 Nutrition therapy Jose Ruth APRN-SOCIAL WORK PROGRAM COORDINATOR Work Phone: [facility] Comment on above: MDS (myelodysplastic syndrome); Other specified abnormal findings of blood chemistry; Unspecified severe protein-calorie malnutrition Start: 12-29-2023 End: 12-29-2023 Subsequent hospital visit by physician Jose Ruth APRN-SOCIAL WORK PROGRAM COORDINATOR Work Phone: [facility]3] Procedure [facility] Comment on above: Arrived Start: 12-29-2023 ambulatory [facility] Facility:O TRACY Start: 12-19-2023 ambulatory [facility] Facility:O TRACY Start: 12-02-2023 End: 12-03-2023 Office outpatient visit 25 minutes Niurka Laboy MD Work Phone: [facility] Comment on above: MDS (myelodysplastic syndrome) (Primary Dx); Unspecified severe protein-calorie malnutrition; Other specified abnormal findings of blood chemistry Start: 12-02-2023 End: 12-02-2023 Patient encounter procedure Niurka Laboy MD Work Phone: Department of Audiology at [facility] Comment on above: Sensorineural hearin g loss, bilateral (Primary Dx); Myelodysplastic syndrome Dietary counseling a nd surveillance (Primary Dx) Start: 12-02-2023 ambulatory [facility] Facility:O TRACY Start: 12-02-2023 Encounter for other preprocedural examination NIURKA LABOY Facility:OSAyleen SÁNCHEZ Start: 12-01-2023 ambulatory [facility] Facility:O TRACY Start: 11-27-2023 End: 11-28-2023 Office outpatient visit 40 minutes Niurka Laboy MD Work Phone: [facility] Comment on above: MDS (myelodysplastic syndrome) Start: 11-27-2023 ambulatory [facility] Facility:O TRACY Start: 11-03-2023 ambulatory [facility] Facility:O TRACY Start: 10-30-2023 [facility] Facility:O [facility] Start: 10-30-2023 End: 10-30-2023 Subsequent hospital visit by physician Bandar Swanson MD Work Phone: [facility] [place] Comment on above: Arrived Start: 10-07-2023 End: 10-07-2023 Office outpatient visit 25 minutes Mike OLEARY Work Phone: [facility] Comment on above: MDS (myelodysplastic syndrome) Start: 10-07-2023 ambulatory [facility] Facility:[facility] Start: 10-02-2023 End: 10-02-2023 Office outpatient visit 25 minutes Jimmy Herrera MD Work Phone: [facility] [place] Comment on above: PAF (paroxysmal atri al fibrillation) (Primary Dx); Asymptomatic left ventricular systolic dysfunction (LVSD); Essential hypertension; Hyperlipidemia, unspecified hyperlipidemia type Start: 10-02-2023 ambulatory JIMMY HERRERA Facili ty:[facility] Start: 09-04-2023 [facility] Facility:[facility] Start: 09-04-2023 End: 09-04-2023 Subsequent hospital visit by physician Bandar Swanson MD Work Phone: [facility] [place] Start: 08-20-2023 End: 08-20-2023 Office outpatient visit 25 minutes Eileen Echols HOT PACKER-SOCIAL WORK PROGRAM COORDINATOR Work Phone: [facility] Comment on above: Research study patie nt; MDS (myelodysplastic syndrome) Start: 08-20-2023 End: 08-20-2023 Patient entered into trial Eileen Echols HOT PACKER-SOCIAL WORK PROGRAM COORDINATOR Work Phone: [facility] Work Phone: Start: 08-20-2023 [facility] Facility:[facility] Start: 08-20-2023 Patient encounter procedure MIKE BORATE Facility:[facility] Start: 08-11-2023 End: 08-11-2023 Office outpatient visit 25 minutes Thai Emanuel HOT PACKER-SOCIAL WORK PROGRAM COORDINATOR Work Phone: [facility] Comment on above: MDS (myelodysplastic syndrome) (Primary Dx); Research study patient Start: 08-11-2023 End: 08-11-2023 Patient entered into trial Thai Blair Brett HOLLAND-SOCIAL WORK PROGRAM COORDINATOR Work Phone: [facility] Work Phone: Start: 08-11-2023 End: 08-11-2023 Subsequent hospital visit by physician Thai EDWARDS Work Phone: [facility] Comment on above: Arrived Start: 08-11-2023 ambulatory BRITTANI RAZO Facility:O [facility] Start: 08-04-2023 End: 08-05-2023 Office outpatient new 60 minutes ANIRUDH Barba MD Work Phone: [facility] Comment on above: MDS (myelodysplastic syndrome) (Primary Dx); Research study patient Start: 08-04-2023 End: 08-05-2023 Patient entered into trial ANIRUDH Barba MD Work Phone: [facility] Start: 08-04-2023 ambulatory REKHA Rankin OLIVE Faci lity:[facility] Start: 07-29-2023 ambulatory JIMMY Jain ty: [facility] Start: 07-29-2023 End: 07-29-2023 Subsequent hospital visit by physician Jimmy Herrera MD Work Phone: [facility] [place] Start: 07-07-2023 ambulatory JIMMY Jain ty:U [facility] Start: 06-24-2023 End: 06-24-2023 Office outpatient new 45 minutes Jimmy Herrera MD Work Phone: [facility] [place] Comment on above: PAF (paroxysmal atri al fibrillation) (Primary Dx); Essential hypertension; Hyperlipidemia, unspecified hyperlipidemia type; FATIMAH (obstructive sleep apnea) Start: 06-24-2023 ambulatory JIMMY Jain ty:U [facility] Start: 07-31-2020 End: 07-31-2020 Patient encounter procedure BONIFACIO PAGE [facility] Start: 07-06-2020 End: 07-06-2020 Patient encounter procedure BONIFACIO PAGE [facility] Start: 03-15-2013 End: 03-15-2013 Patient encounter procedure Nisha Carreno [facility] Start: 02-25-2013 End: 02-25-2013 Patient encounter procedure Nisha Carreno [facility] Start: 02-25-2013 End: 02-25-2013 Patient encounter status Nisha Carreno DO Work Phone: [facility] Start: 02-12-2013 End: 02-12-2013 Patient encounter procedure Nisha Carreno [facility] Start: 08-04-2012 End: 08-04-2012 Phone Encounter Nisha Carreno [facility] Start: 05-08-2012 End: 05-08-2012 Phone Encounter Nisha Carreno [facility] Start: 05-08-2012 End: 05-08-2012 Patient encounter procedure Nisha Carreno [facility] Start: 05-10-2010 End: 05-10-2010 Patient encounter procedure Nisha Carreno [facility] Start: 06-23-2007 End: 06-23-2007 Patient encounter procedure Nisha Carreno [facility] 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 Compr [facility]; [facility] Work Phone: Comment on above: scope due at 66 yo Procedures Date Procedure Procedure Detail Performing Clinician Start: 01-07-2024 Echo transthorc r-t 2d w/wo m-mode rec f-up/lmtd Jimmy Herrera MD Work Phone: Start: 12-29-2023 Antibody screen [facility] Ap Operator Work Phone: Start: 12-29-2023 CG CULTURE Ksenia Allen HOT PACKER-SOCIAL WORK PROGRAM COORDINATOR Work Phone: Start: 12-29-2023 DNA EXTRACTION, EZ1 Ben manuel Allen HOT PACKER-SOCIAL WORK PROGRAM COORDINATOR Work Phone: Start: 12-29-2023 HEMATOLOGIC NEOPLASM MUTATION PANEL, BONE MARROW OR BLOOD Ksenia Allen HOT PACKER-SOCIAL WORK PROGRAM COORDINATOR Work Phone: Start: 12-29-2023 Spcl stn 2 i&r excpt microorg/enzyme/imcyt Ksenia Eileen Tiffany HOT PACKER-SOCIAL WORK PROGRAM COORDINATOR Work Phone: Start: 12-29-2023 Diagnostic bone jazmin ow biopsies & aspirations Jose Ruth HOT PACKER-SOCIAL WORK PROGRAM COORDINATOR Work Phone: Start: 12-29-2023 Antibody screen BRITTANI RAZO Comment on above: Performed By: #### X M, ABORH #### [facility] (DEFAULT) [address] [place] [address] Start: 12-29-2023 Blood typing serolog ic abo Eileen Echols HOT PACKER-SOCIAL WORK PROGRAM COORDINATOR Work Phone: Start: 12-29-2023 CBC AND ELECTRONIC DIFF Eileen Echols HOT PACKER-SOCIAL WORK PROGRAM COORDINATOR Work Phone: Start: 12-29-2023 Complete blood count with white cell differential, automated Eileen Echols HOT PACKER-[facility] Work Phone: Start: 12-29-2023 Comprehensive metabo lic panel Eileen Echols HOT PACKER-SOCIAL WORK PROGRAM COORDINATOR Work Phone: Start: 12-02-2023 AUDIOGRAM Other [facility] Start: 11-27-2023 Antibody cytomegalov irus cmv Niurka Laboy MD Work Phone: Start: 11-27-2023 Comprehensive metabo lic panel Eileen Echols HOT PACKER-SOCIAL WORK PROGRAM COORDINATOR Work Phone: Start: 11-27-2023 Hla class i typing l ow resolution complete Niurka Laboy MD Work Phone: Start: 11-27-2023 TT SAMPLE Other [facility] Start: 10-30-2023 Ct heart contrast ev al cardiac structure&morph Bandar Swanson MD Work Phone: Start: 10-07-2023 Antibody screen Mike Bor ate MBBS Work Phone: Start: 10-07-2023 Antibody screen BRITTANI RAZO Comment on above: Performed By: #### X M #### [facility] (DEFAULT) [address] [place] [address] Start: 10-07-2023 Blood typing serolog ic abo Eileen Echols HOT PACKER-SOCIAL WORK PROGRAM COORDINATOR Work Phone: Start: 10-07-2023 CBC AND ELECTRONIC DIFF Eileen Echols HOT PACKER-SOCIAL WORK PROGRAM COORDINATOR Work Phone: Start: 10-07-2023 Complete blood count with white cell differential, automated Eileen Echols HOT PACKER-SOCIAL WORK PROGRAM COORDINATOR Work Phone: Start: 10-07-2023 Comprehensive metabo lic panel Eileen Echols HOT PACKER-SOCIAL WORK PROGRAM COORDINATOR Work Phone: Start: 09-04-2023 Myocardial spect mul tiple studies Bandar Swanson MD Work Phone: Start: 08-20-2023 Antibody screen Amairani Echols HOT PACKER-SOCIAL WORK PROGRAM COORDINATOR Work Phone: Start: 08-20-2023 Antibody screen BRITTANI RAZO Comment on above: Performed By: #### X M #### [facility] (DEFAULT) [address] [place] [address] Start: 08-20-2023 Blood typing serolog ic abo Eileen Echols HOT PACKER-SOCIAL WORK PROGRAM COORDINATOR Work Phone: Start: 08-20-2023 CBC AND ELECTRONIC DIFF Eileen Echols HOT PACKER-SOCIAL WORK PROGRAM COORDINATOR Work Phone: Start: 08-20-2023 Complete blood count with white cell differential, automated Eileen Echols HOT PACKER-SOCIAL WORK PROGRAM COORDINATOR Work Phone: Start: 08-20-2023 Comprehensive metabo lic panel Eileen Echols HOT PACKER-SOCIAL WORK PROGRAM COORDINATOR Work Phone: Start: 08-20-2023 MANUAL DIFF Eileen Echols HOT PACKER-SOCIAL WORK PROGRAM COORDINATOR Work Phone: Start: 08-11-2023 Diagnostic bone jazmin ow biopsies & aspirations Thai Emanuel HOT PACKER-SOCIAL WORK PROGRAM COORDINATOR Work Phone: Start: 08-11-2023 CG CULTURE Thai lopez [facility] Work Phone: Start: 08-11-2023 DNA EXTRACTION, EZ1 Mar adi Emanuel [facility] Work Phone: Start: 08-11-2023 HEMATOLOGIC NEOPLASM MUTATION PANEL, BONE MARROW OR BLOOD Thai Emanuel [facility] Work Phone: Start: 08-11-2023 Spcl stn 2 i&r excpt microorg/enzyme/imcyt Thai Emanuel [facility] Work Phone: Start: 08-11-2023 Hepatitis b surf ant ibody hbsab Thai Emanuel [facility] Work Phone: Start: 08-11-2023 Lactate dehydrogenase ldh Thai Emanuel [facility] Work Phone: Start: 08-11-2023 Urnls dip stick/tabl et reagent auto microscopy Thai Emanuel [facility] Work Phone: Start: 08-04-2023 CBC AND ELECTRONIC DIFF ANIRUDH Barba MD Work Phone: Start: 08-04-2023 Complete blood count with white cell differential, automated ANIRUDH Barba MD Work Phone: Start: 08-04-2023 Comprehensive metabo lic panel ANIRUDH Barba MD Work Phone: Start: 08-04-2023 [id number] ANIRUDH Barba MD Work Phone: Start: 07-29-2023 Echo tthrc r-t 2d w/wom-mode compl spec&colr d Jimmy Herrera MD Work Phone: Start: 04-09-2017 End: 04-09-2017 Follow Up Appt 9 months Cam Thibodeaux PACK OUT OPERATOR Work Phone: Start: 04-09-2017 End: 04-09-2017 PFM Cam Thibodeaux PACK OUT OPERATOR Work Phone: Start: 07-18-2016 End: 07-18-2016 Ecg routine ecg w/least 12 lds w/i&r Eileen Bianchi PA-C Work Phone: Start: 07-18-2016 End: 07-18-2016 Follow Up Appt 6 months Eileen Bianchi PA-C Work Phone: Start: 07-18-2016 End: 07-18-2016 Follow Up Appt Other Eileen Bianchi PA-C Work Phone: Start: 07-18-2016 End: 07-18-2016 PFM Eileen Bianchi PA-C Work Phone: Start: 07-05-2016 End: [...] Herrera MD Start: 07-17-2015 End: 07-18-2015 *BMP Eileen Bianchi PA-C Work Phone: Start: 07-17-2015 End: 07-18-2015 *Hepatic Function Panel Eileen Bianchi PA-C Work Phone: Start: 07-17-2015 End: 07-17-2015 Follow Up Appt 6 months Eileen Bianchi PA-C Work Phone: Start: 07-17-2015 End: 07-18-2015 Lipid 1996 panel - Serum or Plasma Eileen Bianchi PA-C Work Phone: Start: 07-17-2015 End: 07-17-2015 PFM Eileen Bianchi PA-C Work Phone: Start: 06-13-2015 End: 06-13-2015 Emergency Department Summary Comments: See Note; NOTES: [facility] Medical Records Department [address] [place] [address] Emergency Department Summary MR#: [id number] Acct: [id number] Name: WM SHEA Rep #: [id number] : 1950 65 From: Regan Ramirez DO [...] repair. Regan Ramirez DO T: NTS JOB: [id number] 06/13/15 1509 <Electronically signed by Reagn Ramirez DO> Date Regan Ramirez DO Cosigner Signature (If Indicated): Date CC: Terese Warren MD Date Dictated: 06/08/151127 Date Transcribed: 06/08/151127 Atmospheric Physicist: Signed Nisha Carreno Start: 06-08-2015 End: 06-08-2015 Discharge Instruction Comments: See Note; NOTES: [facility] Medical Records Department [address] [place] [address] Discharge Instruction 06/08/15 1107 MR#: [id number] Acct: [id number] Name: WM SHEA Rep #: [id number] : 1950 65 From: Regan Ramirez DO [...] problems, contact your doctor. Call [facility] ([phone]) or report to the closest Emergency Room. [...] Ecg routine ecg w/least 12 lds w/i&r Eileen Bianchi PA-C Work Phone: Start: 03-02-2014 End: 03-02-2014 Follow Up Appt 6 months Eileen Bianchi PA-C Work Phone: Start: 03-02-2014 End: 03-02-2014 Follow Up Appt Other Eileen Bianchi PA-C Work Phone: Start: 03-02-2014 End: 03-02-2014 PFM Eileen Bianchi PA-C Work Phone: Start: 02-09-2014 End: 02-17-2014 *Hepatic Function Panel Jimmy Herrera MD Start: 02-09-2014 End: 02-17-2014 Lipid 1996 panel - Serum or Plasma Jimmy Herrera MD Start: 08-30-2013 End: 02-17-2014 *Hepatic Function Panel Jimmy Herrera MD Start: 08-30-2013 End: 08-30-2013 Ecg routine ecg w/least 12 lds w/i&r Jimmy Herrera MD Start: 08-30-2013 End: 02-18-2014 Follow Up Appt 6 months Jimmy Herrera MD Start: 08-30-2013 End: 02-17-2014 Lipid 1996 panel - Serum or Plasma Jimmy Herrera MD Start: 08-30-2013 End: 02-18-2014 MMM Jimmy Herrera MD Start: 07-10-2013 End: 08-17-2013 *Hepatic Function Panel Eileen Bianchi PA-C Work Phone: Start: 07-10-2013 End: 08-17-2013 Lipid 1996 panel - Serum or Plasma Eileen Bianchi PA-C Work Phone: Start: 02-26-2013 End: 02-26-2013 Chest PA and Lateral Comments: See Note; NOTES: [facility] Imaging Services [address] [place] [address] Radiology Report MR#: [id number] Acct: [id number] Name: WM SHEA Rep #: [id number] : 1950 M 62 From: Srinivasan Baker MD PCP: Status: REG CLI Study: Chest PA and Lateral Date of Exam: 02/26/13 Exam# [id number] Ordering Dr: Terese Warren MD STUDY: X-RAY [...] February 26, 2013 at 9:53:22 AM EDT [phone] Electronically Signed GP/GP If you are the referring physician and would like to consult with the radiologist who provided this interpretation, please contact Srinivasan Baker M.D. at [phone]. If this radiologist is unavailable, you will be directed to another radiologist to assist. If you are a patient with a question regarding this report, please contact your referring physician directly. Professional Interpretation Provided By: [employer], Phone , These documents contain legally protected [...] of these documents. CC: Terese Warren MD Atmospheric Physicist: Signed Terese Warren Work Phone: Start: 01-12-2013 End: 01-12-2013 *Hepatic Function Panel Eileen Bianchi PA-C Work Phone: Start: 01-12-2013 End: 01-12-2013 Follow Up Appt 6 months Eileen Bianchi PA-C Work Phone: Start: 01-12-2013 End: 01-12-2013 PFM Eileen Bianchi PA-C Work Phone: Start: 07-13-2012 End: [...] months Jimmy Herrera MD Start: 06-26-2011 End: 02-17-2012 *Hepatic Function Panel Jimmy Herrera MD Start: [...] Detail Author Start: 11-10-2031 Tetanus vaccination TETANUS [facility] Start: 07-07-2024 End: 07-07-2024 Patient encounter procedure 07/07/2024 10:00 AM EST Office Visit [facility] [address] [address] Jimmy Herrera MD [address] [place] [id number] [facility] [place] Start: 06-30-2024 Hemoglobin A1c measurement HBA1C TEST [facility] Start: 05-23-2024 Screening for malignant neoplasm of colon COLORECTAL CANCER SCREENING DISCUSSION [facility] Start: 02-18-2024 End: 02-18-2024 Admission to same day surgery center 02/18/2024 10:35 AM EDT - 02/18/2024 12:35 PM EDT Surgery Cardiovascular Imaging Lab [facility] [address] [place] [address] Bandar Swanson MD [address] [facility] [address] [place] [address] LEFT ATRIAL APPENDAGE SCHED CLOSURE W/IMPLANT ([id number]) Cardiovascular Imaging Lab [facility] Comment on above: LEFT ATRIAL APPENDAGE SCHED CLOSURE W/IM PLANT ([id number]) Start: 02-18-2024 Subsequent hospital visit by physician 02/18/2024 10:35 AM EDT Hospital Encounter Cardiology [facility] [address] [place] [address] Bandar Swanson MD [address] [facility] [address] [place] [address] PAF (paroxysmal atrial fibrillation) [facility] Comment on above: PAF (paroxysmal atrial fibrillation) Start: 02-17-2024 End: 02-17-2024 Patient encounter procedure [facility] [place] Start: 01-16-2024 End: 01-16-2024 Telemedicine consultation with patient 01/16/2024 2:00 PM EDT Telemedicine [facility] [address] [place] [phone] Mike Lewis MBBS [address] [place] [address] [phone] [facility] Start: 01-15-2024 End: 01-15-2024 Telemedicine consultation with patient 01/15/2024 1:00 PM EDT Telemedicine [facility] [address] [place] [phone] Niurka Laboy MD [address] [place] [address] [address] [place] [address] [facility] Start: 01-11-2024 COVID-19 VACCINE ( season) COVID-19 VACCINE ( season) [facility] Start: 01-11-2024 Influenza vaccination INFLUENZA VACCINE (#1) [facility] Start: 01-07-2024 End: 01-07-2024 Patient encounter procedure [facility] [place] Start: 01-05-2024 End: 01-05-2024 Telemedicine consultation with patient 01/05/2024 4:40 PM EDT Telemedicine [facility] [address] [place] [address] Mike Lewis, ANIRUDH [address] [place] [address] [facility] Start: 01-05-2024 End: 01-05-2024 Patient encounter procedure [facility] [place] Start: 01-02-2024 End: 10-01-2024 Heart limited ECHOCARDIOGRAM LIMITED/FOLLOWUP Echocardiography Routine PAF (paroxysmal atrial fibrillation) Essential hypertension Hyperlipidemia, unspecified hyperlipidemia type Expected: 01/02/2024, Expires: 10/01/2024 [facility] Comment on above: Expected: 01/02/2024, Expires: Start: 12-29-2023 End: 12-29-2023 Clinical Support Encounter [facility] Start: 12-25-2023 End: 12-25-2023 Patient encounter procedure 12/25/2023 1:30 PM EDT Office Visit [facility] [address] [address] Paul Quevedo MD [facility] [place] [address] [facility] [place] Start: 12-02-2023 End: 12-01-2024 Hemoglobin A1c/Hemoglobin.total in Blood HEMOGLOBIN A1C Lab Routine MDS (myelodysplastic syndrome) Other specified abnormal findings of blood chemistry Expected: 12/02/2023, Expires: 12/01/2024 [facility] Comment on above: Expected: 12/02/2023, Expires: Start: 12-02-2023 End: 12-01-2024 VITAMIN D (25-HYDROXY,TOTAL) VITAMIN D (25-HYDROXY,TOTAL) Lab Routine MDS (myelodysplastic syndrome) Unspecified severe protein-calorie malnutrition Expected: 12/02/2023, Expires: 12/01/2024 [facility] Work Phone: Comment on above: Expected: 12/02/2023, Expires: Start: 12-02-2023 End: 12-02-2023 Patient encounter procedure [facility] Start: 11-27-2023 End: 11-27-2023 Patient encounter procedure 11/27/2023 4:00 PM EDT Office Visit [facility] [address] [place] [phone] Niurka Laboy MD [address] [place] [address] [address] [place] [phone] [facility] Start: 11-04-2023 End: 11-04-2023 Patient encounter procedure [facility] at [facility] Start: 11-03-2023 End: 11-03-2023 Telemedicine consultation with patient 11/03/2023 7:30 AM EDT Telemedicine [facility] [address] [place] [phone] Eileen Echols, HOT PACKER-SOCIAL WORK PROGRAM COORDINATOR [address] [place] [address] [address] [place] [phone] [facility] Start: 10-30-2023 End: 10-30-2023 Patient encounter procedure 10/30/2023 1:00 PM EDT Appointment [facility] [address] [place] [address] Bandar Swanson MD [facility] [address] [place] [phone] [facility] [place] Start: 10-07-2023 End: 10-07-2023 Patient encounter procedure 10/07/2023 11:00 AM EDT Office Visit [facility] [address] [place] [phone] Mike Lewis MBBS [address] [place] [phone] [facility] Start: 10-02-2023 End: 10-02-2023 Patient encounter procedure 10/02/2023 10:30 AM EDT Office Visit [facility] [address] [address] Jimmy Herrera MD [address] [address] [facility] [place] Start: 09-22-2023 End: 09-22-2023 Patient encounter procedure 09/22/2023 9:00 AM EDT Office Visit [facility] [address] [place] [phone] Mike Lewis MD, MBBS [address] [place] [phone] [facility] Start: 09-04-2023 Subsequent hospital visit by physician 09/04/2023 8:15 AM EDT Hospital Encounter [facility] [address] [address] Bandar Swanson MD [address] [place] [phone] [facility] [place] Start: 08-27-2023 End: 08-27-2023 Patient encounter procedure 08/27/2023 7:30 AM EDT Infusion Visit Clinical Treatment Unit [address] [place] [phone] Clinical Treatment Unit Start: 08-20-2023 End: 08-20-2023 Patient encounter procedure 08/20/2023 11:00 AM EDT Office Visit [facility] [address] [place] [phone] Eileen Echols, HOT P[employer]ER-SOCIAL WORK PROGRAM COORDINATOR [address] [place], [place] [address]e [address] [place] [phone] [facility] Start: 08-04-2023 End: 08-04-2023 Patient encounter procedure 08/04/2023 10:00 AM EDT Office Visit [facility] [address] [place] [phone] Mike Lewis MD, MBBS [address] [place] [address] [facility] Start: 07-29-2023 End: 07-29-2023 Patient encounter procedure 07/29/2023 10:00 AM EDT Appointment [facility] [place] [address] [facility] [address] [place] [address] Jimmy Herrera MD [address] [address] [facility] [place] Start: 01-10-2023 COVID-19 VACCINE ( season) COVID-19 VACCINE ( season) [facility] Start: 01-19-2018 End: 01-19-2018 Appointment Appointment [facility] Work Phone: Start: 04-09-2017 End: 04-09-2017 Follow Up Appt 9 months Follow Up Appt 9 months [facility] Work Phone: Start: 04-09-2017 End: 04-09-2017 PFM PFM [facility] Work Phone: Start: 04-09-2017 End: 04-09-2017 Appointment Appointment [facility] Work Phone: Start: 01-20-2017 End: 07-25-2016 *Hepatic Function Panel *Hepatic Function Panel [facility] Work Phone: Start: 01-20-2017 End: 07-25-2016 Lipid panel [AGGREGATE] *Lipid Profile CC PCP [facility] Work Phone: Start: 07-18-2016 End: 07-18-2016 Ecg routine ecg w/least 12 lds w/i&r EKG (In office) [facility] Work Phone: Start: 07-18-2016 End: 07-18-2016 Follow Up Appt 6 months Follow Up Appt 6 months [facility] Work Phone: Start: 07-18-2016 End: 07-18-2016 Follow Up Appt Other Follow Up Appt Other [facility] Work Phone: Start: 07-18-2016 End: 07-18-2016 PFM PFM [facility] Work Phone: Start: 07-05-2016 End: 07-25-2016 *Hepatic Function Panel *Hepatic Function Panel [facility] Work Phone: Start: 07-05-2016 End: 07-25-2016 Lipid panel [AGGREGATE] *Lipid Profile CC PCP [facility] Work Phone: Start: 2016 Abdominal aortic aneurysm screening ABDOMINAL AORTIC ANEURYSM HIGH RISK SCREEN [facility] Start: 01-05-2016 End: 01-05-2016 *Hepatic Function Panel *Hepatic Function Panel [facility] Work Phone: Start: 01-05-2016 End: 07-12-2016 Follow Up Appt 6 months Follow Up Appt 6 months [facility] Work Phone: Start: 01-05-2016 End: 01-05-2016 Lipid panel [AGGREGATE] *Lipid Profile CC PCP [facility] Work Phone: Start: 01-05-2016 End: 07-12-2016 MMM MMM [facility] Work Phone: Start: 07-17-2015 End: 07-18-2015 *BMP *BMP [facility] Work Phone: Start: 07-17-2015 End: 07-18-2015 *Hepatic Function Panel *Hepatic Function Panel [facility] Work Phone: Start: 07-17-2015 End: 07-17-2015 Follow Up Appt 6 months Follow Up Appt 6 months [facility] Work Phone: Start: 07-17-2015 End: 07-18-2015 Lipid panel [AGGREGATE] *Lipid Profile CC PCP [facility] Work Phone: Start: 07-17-2015 End: 07-17-2015 PFM PFM [facility] Work Phone: Start: 01-06-2015 End: 07-17-2015 *Hepatic Function Panel *Hepatic Function Panel [facility] Work Phone: Start: 01-06-2015 End: 01-06-2015 Ecg routine ecg w/least 12 lds w/i&r EKG (In office) [facility] Work Phone: Start: 01-06-2015 End: 01-06-2015 Follow Up Appt 6 months Follow Up Appt 6 months [facility] Work Phone: Start: 01-06-2015 End: 07-17-2015 Lipid panel [AGGREGATE] *Lipid Profile CC PCP [facility] Work Phone: Start: 01-06-2015 End: 01-06-2015 MMM MMM [facility] Work Phone: Start: 08-18-2014 End: 01-02-2015 *Hepatic Function Panel *Hepatic Function Panel [facility] Work Phone: Start: 08-18-2014 End: 01-02-2015 Lipid panel [AGGREGATE] *Lipid Profile CC PCP [facility] Work Phone: Start: 03-02-2014 End: 03-02-2014 Ecg routine ecg w/least 12 lds w/i&r EKG (In office) [facility] Work Phone: Start: 03-02-2014 End: 03-02-2014 Follow Up Appt 6 months Follow Up Appt 6 months [facility] Work Phone: Start: 03-02-2014 End: 03-02-2014 Follow Up Appt Other Follow Up Appt Other [facility] Work Phone: Start: 03-02-2014 End: 03-02-2014 PFM PFM [facility] Work Phone: Start: 02-09-2014 End: 02-17-2014 *Hepatic Function Panel *Hepatic Function Panel [facility] Work Phone: Start: 02-09-2014 End: 02-17-2014 Lipid panel [AGGREGATE] *Lipid Profile CC PCP [facility] Work Phone: Start: 08-30-2013 End: 02-17-2014 *Hepatic Function Panel *Hepatic Function Panel [facility] Work Phone: Start: 08-30-2013 End: 02-17-2014 Ecg routine ecg w/least 12 lds w/i&r EKG (In office) [facility] Work Phone: Start: 08-30-2013 End: 02-18-2014 Follow Up Appt 6 months Follow Up Appt 6 months [facility] Work Phone: Start: 08-30-2013 End: 02-17-2014 Lipid panel [AGGREGATE] *Lipid Profile CC PCP [facility] Work Phone: Start: 08-30-2013 End: 02-18-2014 MMM MMM [facility] Work Phone: Start: 07-10-2013 End: 08-17-2013 *Hepatic Function Panel *Hepatic Function Panel [facility] Work Phone: Start: 07-10-2013 End: 08-17-2013 Lipid panel [AGGREGATE] *Lipid Profile CC PCP [facility] Work Phone: Start: 02-25-2013 Natriuretic peptide BNTP (98207) [facility] Work Phone: Start: 02-12-2013 Patient Education Cough: cough [facility] Work Phone: Start: 01-12-2013 End: 01-12-2013 *Hepatic Function Panel *Hepatic Function Panel [facility] Work Phone: Start: 01-12-2013 End: 01-12-2013 Follow Up Appt 6 months Follow Up Appt 6 months [facility] Work Phone: Start: 01-12-2013 End: 01-12-2013 PFM PFM [facility] Work Phone: Start: 07-13-2012 End: 12-31-2012 Ecg routine ecg w/least 12 lds w/i&r EKG (In office) [facility] Work Phone: Start: 07-13-2012 End: 12-31-2012 Follow Up Appt 6 months Follow Up Appt 6 months [facility] Work Phone: Start: 07-13-2012 End: 12-31-2012 MMM MMM [facility] Work Phone: Start: 12-30-2011 End: 12-31-2012 *Hepatic Function Panel *Hepatic Function Panel [facility] Work Phone: Start: 12-30-2011 End: 12-31-2012 Lipid panel [AGGREGATE] *Lipid Profile [facility] Work Phone: Start: 12-27-2011 End: 12-27-2011 Ecg routine ecg w/least 12 lds w/i&r EKG (In office) [facility] Work Phone: Start: 12-27-2011 End: 12-31-2012 Follow Up Appt 6 months Follow Up Appt 6 months [facility] Work Phone: Start: 06-26-2011 End: 06-28-2011 *Hepatic Function Panel *Hepatic Function Panel [facility] Work Phone: Start: 06-26-2011 End: 12-31-2012 Ecg routine ecg w/least 12 lds w/i&r EKG (In office) [facility] Work Phone: Start: 06-26-2011 End: 12-31-2012 Follow Up Appt 6 months Follow Up Appt 6 months [facility] Work Phone: Start: 06-26-2011 End: 06-28-2011 Lipid panel [AGGREGATE] *Lipid Profile [facility] Work Phone: Start: 2011 RSV VACCINE (1 - 1-dose 60+ series) RSV VACCINE (1 - 1-dose 60+ series) [facility] Start: 04-01-2011 End: 12-31-2012 INR Coag RelTime (PPP) *PT/INR [facility] Work Phone: Start: 05-10-2010 Patient Education Sore throat: diagnosis and treatment [facility] Work Phone: Start: 05-10-2010 Provider Instructions for Treatment *Antibiotic Usage Education - Male [facility] Work Phone: Start: 05-10-2010 Cul bact xcpt urine blood/stool aerobic isol LEONARDO CULTURE-OTHER (29377) [facility] Work Phone: Start: 06-23-2007 Patient Education Sore throat: diagnosis and treatment [facility] Work Phone: Start: 06-23-2007 Provider Instructions for Treatment [facility] Work Phone: Start: 06-23-2007 Cul bact xcpt urine blood/stool aerobic isol LEONARDO CULTURE-OTHER (64318) [facility] Work Phone: Start: 2001 Prostate specific antigen measurement PROSTATE CANCER SCREENING DISCUSSION [facility] Start: 1991 Lipid panel LIPID SCREENING [facility] Start: 1950 Diabetic foot examination DIABETIC FOOT EXAM [facility] Start: 1950 Glaucoma screening EYE EXAM [facility] Start: 1950 Hepatitis C screening HEPATITIS C VIRUS SCREENING [facility] Start: 1950 Lipid panel LIPIDS [facility] Start: 1950 Urine screening for protein URINE MICROALBUMIN TEST [facility] End: 08-11-2023 BONE MARROW, RESEARCH BONE MARROW, RESEARCH Lab Routine Research study patient One Time for 1 Occurrences starting 08/11/2023 until 08/11/2023 [facility] Comment on above: One Time for 1 Occurrences starting 05/2023 until 08/11/2023 CG CULTURE CG CULTURE Lab R outine MDS (myelodysplastic syndrome) 08/11/2023 11:47 AM EDT [facility] CG CULTURE CG CULTURE Lab R outine MDS (myelodysplastic syndrome) 12/29/2023 2:34 PM EDT [facility] End: 08-18-2024 Complete blood count with white cell differential, automated CBC, EDIF, PLATELET Lab Routine MDS (myelodysplastic syndrome) q HTC for 99 Occurrences starting 08/19/2023 until 08/18/2024, 1 completed [facility] Comment on above: q HTC for 99 Occurrences starting 2023 until 08/18/2024, 1 completed End: 08-18-2024 Comprehensive metabolic 2000 panel - Serum or Plasma COMPREHENSIVE METABOLIC PANEL Lab Routine MDS (myelodysplastic syndrome) q HTC for 99 Occurrences starting 08/19/2023 until 08/18/2024, 1 completed [facility] Comment on above: q HTC for 99 Occurrences starting 2023 until 08/18/2024, 1 completed End: 08-11-2023 Cytogenetic procedure [facility] Comment on above: One Time for 1 Occurrences starting 05/2023 until 08/11/2023 End: 12-29-2023 Cytogenetic procedure [facility] Comment on above: One Time for 1 Occurrences starting 12/10 until 12/29/2023 End: 08-11-2023 CYTOGENETIC STUDIES (PERFORMABLE) [facility] Comment on above: Once for 1 Occurrences starting 08/11/19 until 08/11/2023, 1 completed End: 12-29-2023 CYTOGENETIC STUDIES (PERFORMABLE) [facility] Comment on above: Once for 1 Occurrences starting 12/29/19 until 12/29/2023, 1 completed Ecg routine ecg w/le ast 12 lds w/i&r TN ELECTROCARDIOGRAM, COMPLETE TN - OFFICE PERFORMED Routine PAF (paroxysmal atrial fibrillation) Essential hypertension Hyperlipidemia, unspecified hyperlipidemia type FATIMAH (obstructive sleep apnea) Ordered: 06/24/2023 [facility] Comment on above: Ordered: 06/24/2023 Ecg routine ecg w/le ast 12 lds w/i&r TN ECG ROUTINE ECG W/LEAST 12 LDS W/I&R TN - OFFICE PERFORMED Routine PAF (paroxysmal atrial fibrillation) Essential hypertension Hyperlipidemia, unspecified hyperlipidemia type Ordered: 10/02/2023 [facility] Comment on above: Ordered: 10/02/2023 Echocardiography ECHOCARDIOGRAM Echocardiography Routine PAF (paroxysmal atrial fibrillation) Essential hypertension Hyperlipidemia, unspecified hyperlipidemia type FATIMAH (obstructive sleep apnea) Ordered: 06/24/2023 [facility] Comment on above: Ordered: 06/24/2023 End: 08-11-2023 FISH STUDIES [facility] Comment on above: One Time for 1 Occurrences starting 05/2023 until 08/11/2023 End: 12-29-2023 FISH STUDIES [facility] Comment on above: One Time for 1 Occurrences starting 12/10 until 12/29/2023 End: 08-12-2023 HEMATOLOGIC NEOPLASM MUTATION PANEL, BM OR PB, FINAL [facility] Comment on above: One Time for 1 Occurrences starting 06/2023 until 08/12/2023 End: 12-30-2023 HEMATOLOGIC NEOPLASM MUTATION PANEL, BM OR PB, FINAL [facility] Comment on above: One Time for 1 Occurrences starting 12/11 until 12/30/2023 End: 08-11-2023 IMMUNOPHENOTYPING [facility] Comment on above: One Time for 1 Occurrences starting 05/2023 until 08/11/2023, 1 completed End: 12-29-2023 IMMUNOPHENOTYPING [facility] Comment on above: One Time for 1 Occurrences starting 12/10 until 12/29/2023, 1 completed End: 08-11-2023 MDS FISH PANEL [facility] Comment on above: One Time for 1 Occurrences starting 05/2023 until 08/11/2023 End: 12-29-2023 MDS FISH PANEL [facility] Comment on above: One Time for 1 Occurrences starting 12/10 until 12/29/2023 Patient Education [facility] Work Phone: Perq clsr tcat l atr apndge w/endocardial implnt LEFT ATRIAL APPENDAGE SCHED CLOSURE W/ IMPLANT ([id number]) PAF (paroxysmal atrial fibrillation) [facility] EP Perq clsr tcat l atr apndge w/endocardial implnt LEFT ATRIAL APPENDAGE SCHED CLOSURE W/ IMPLANT ([id number]) PAF (paroxysmal atrial fibrillation) MDS (myelodysplastic syndrome) [facility] SUPPLIED KIT SUPPLIED KIT Lab Routine Research study patient Ordered: 08/04/2023 [facility] Work Phone: Comment on above: Ordered: 08/04/2023 End: 08-11-2023 SURG PATH REQUEST [facility] Work Phone: Comment on above: One Time for 1 Occurrences starting 05/2023 until 08/11/2023, 1 completed End: 12-29-2023 SURG PATH REQUEST [facility] Work Phone: Comment on above: One Time for 1 Occurrences starting 12/10 until 12/29/2023, 1 completed End: 08-18-2024 TYPE AND SCREEN TYPE AND SCREEN Blood Bank Routine MDS (myelodysplastic syndrome) q 3 days for 99 Occurrences starting 08/19/2023 until 08/18/2024, 1 completed [facility] Comment on above: q 3 days for 99 Occurrences starting 01/2024 until 08/18/2024, 1 completed [facility] Work Phone: [facility] Work Phone: [facility] Work Phone: [facility] Work Phone: [facility] Work Phone: [facility] Work Phone: Immunizations Immunization Date Immunization Notes Care Provider Tyron puga 04-06-2023 influenza virus vaccine, unspecified formulation Concha Wooder AuD Work Phone: [facility] Payers Date Payer Category Payer Unknown 2019 Unknown [id number] 2016 Medicare [id number] 2016 Medicare [id number] 1950 Unknown [id number] 2.16. 840.1.751530.3.579.2.594 1950 Unknown [id number] 2.16. 840.1.462059.3.579.2.594 1950 Unknown [id number] 2.16. 840.1.383081.3.579.2.594 1950 Unknown [id number] 2.16. 840.1.223885.3.579.2.594 1951 Unknown [id number] 2.16. 840.1.938256.3.579.2.594 1951 Unknown [id number] 2.16. 840.1.098216.3.579.2.594 1951 Unknown [id number] 2.16. 840.1.012536.3.579.2.594 1951 Unknown [id number] 2.16. 840.1.188307.3.579.2.594 1951 Unknown [id number] 2.16. 840.1.477741.3.579.2.594 1951 Unknown [id number] 2.16. 840.1.192364.3.579.2.594 1951 Unknown [id number] 2.16. 840.1.919446.3.579.2.594 1951 Unknown [id number] 2.16. 840.1.578201.3.579.2.594 1951 Unknown [id number] 2.16. 840.1.874911.3.579.2.594 1951 Unknown [id number] 2.16. 840.1.594829.3.579.2.594 1951 Unknown [id number] 2.16. 840.1.655194.3.579.2.594 1951 Unknown [id number] 2.16. 840.1.115836.3.579.2.594 1951 Unknown [id number] 2.16. 840.1.812432.3.579.2.594 1951 Unknown [id number] 2.16. 840.1.577294.3.579.2.594 1951 Unknown [id number] 2.16. 840.1.369915.3.579.2.594 1951 Unknown [id number] 2.16. 840.1.443137.3.579.2.594 1951 Unknown [id number] 2.16. 840.1.517757.3.579.2.594 1951 Unknown [id number] 2.16. 840.1.653464.3.579.2.594 1951 Unknown [id number] 2.16. 840.1.040028.3.579.2.594 1951 Unknown [id number] 2.16. 840.1.876399.3.579.2.594 1951 Unknown [id number] 2.16. 840.1.383755.3.579.2.594 1951 Unknown [id number] 2.16. 840.1.495788.3.579.2.594 1951 Unknown [id number] 2.16. 840.1.931148.3.579.2.594 1951 Unknown [id number] 2.16. 840.1.225715.3.579.2.594 1951 Unknown [id number] 2.16. 840.1.109665.3.579.2.594 1951 Unknown [id number] 2.16. 840.1.135409.3.579.2.594 1951 Unknown [id number] 2.16. 840.1.830531.3.579.2.594 Social History Date Type Detail Facility Start: 06-24-2023 End: 12-02-2023 Alcohol Use Alcohol Use [facility] Work Phone: Comment on above: Occasional alcohol u se retiring 05-25-13 [facility] Start: 06-24-2023 Tobacco smoking stat us NHIS Never smoked tobacco [facility] Start: 06-24-2023 Tobacco use and exposure Smokeless tobacco non-user [facility] Start: 06-24-2023 End: 09-04-2023 Alcoholic beverage intake Ex-drinker (finding) [facility] Start: 06-24-2023 End: 12-02-2023 Tobacco use panel [facility] Start: 06-24-2023 Alcohol Comment rare [facility] Start: 1950 Sex assigned at Not on file [facility] Start: 06-24-2023 Gender identity Identifies as male gender (finding) [facility] Start: 06-24-2023 Sexual orientation Heterosexual (fin ding) [facility] Start: 10-02-2023 End: 01-07-2024 Alcoholic beverage intake Current drinker of alcohol (finding) [facility] Start: 10-02-2023 Alcohol Comment may not be bot h or even be every week [facility] Adolescent depressio n screening assessment 2 [facility] Start: 01-07-2024 Alcohol Comment I don't drink every week just once in a while [facility] Goals Date Patient Goal Desired Activity /State Personal health goal Comment on above: Formatting of this n ote might be different from the original. Patient Care Plan: Continuity of Care with Post-Acute Care Providers Interventions: PCRM will assist with care coordination with local provider Expected Patient Goals: Patient will understand and be compliant with treatment plan. Patient will know when/who to call with questions and concerns. Patient will have no unplanned ED visits or hospitalizations. Clinical Notes 06-24-2023 to 01-19-2024 Telephone Encounter - Sussy Toth RN - 01/19/2024 5:52 PM EDTTelephone Encounter - Sussy Toth RN - 01/19/2024 5:52 PM EDTTelephone Encounter - Seda Freire RN - 01/19/2024 5:39 PM EDT Note Date & Type Note Facility 01-19-2024 Telephone encounter Note Patient returning call and states he is scheduled for transfusion locally already on 01/20/24, called to update Seda Myers RN. Thank you, DAVID Alex Automated Post Discharge Nurse Call Team [facility] Nurse Triage Daniel Nurse Remote Patient Monitoring [facility] 01-19-2024 Miscellaneous Notes Patient returning call and states he is scheduled for transfusion locally already on 01/20/24, called to update Seda Myers RN. Thank you, DAVID Alex Automated Post Discharge Nurse Call Team [facility] Nurse Triage Daniel Nurse Remote Patient Monitoring Images from the original note were not included. Fax received with 01/18 lab results as listed below: Hgb 7.6. Transfusing to maintain hgb >8 per OP parameters, requiring transfusion of 1u PRBCs. Attempted to call patient to assess s/s bleeding, transfusion status. Set up at [facility] if patient prefers. CB # provided. documented in this encounter [facility] 01-19-2024 Telephone encounter Note Images from the original note were not included. Fax received with 01/18 lab results as listed below: Hgb 7.6. Transfusing to maintain hgb >8 per OP parameters, requiring transfusion of 1u PRBCs. Attempted to call patient to assess s/s bleeding, transfusion status. Set up at [facility] if patient prefers. CB # provided. [facility] 01-07-2024 Evaluation + Plan note Associated Problem(s): Hyperlipidemia He will continue his lipid-lowering therapy. He is currently on pravastatin at 40 mg p.o. q.day. [facility] 01-07-2024 Evaluation + Plan note Associated Problem(s): Essential hypertension His blood pressure appears to be well controlled. He will continue his current medical management. [facility] 01-07-2024 Evaluation + Plan note Associated Problem(s): Nonrheumatic mitral valve insufficiency He does have a history of mitral valve insufficiency. This may contribute over time to his left atrial enlargement and his atrial fibrillation. It may make it somewhat more challenging to control his atrial dysrhythmia over time. However, the present time, he does not appear to be compromised by his mitral valve insufficiency with respect to left ventricular enlargement or systolic dysfunction or obvious symptoms/physical examination findings. Thus, this will need to be followed over time. [facility] 01-07-2024 Miscellaneous Notes Associated Problem(s): Hyperlipidemia He will continue his lipid-lowering therapy. He is currently on pravastatin at 40 mg p.o. q.day. Associated Problem(s): Essential hypertension His blood pressure appears to be well controlled. He will continue his current medical management. Associated Problem(s): Nonrheumatic mitral valve insufficiency He does have a history of mitral valve insufficiency. This may contribute over time to his left atrial enlargement and his atrial fibrillation. It may make it somewhat more challenging to control his atrial dysrhythmia over time. However, the present time, he does not appear to be compromised by his mitral valve insufficiency with respect to left ventricular enlargement or systolic dysfunction or obvious symptoms/physical examination findings. Thus, this will need to be followed over time. Associated Problem(s): PAF (paroxysmal atrial fibrillation) At the moment he is in sinus rhythm. He will continue his rate control therapy. He will continue his anticoagulant therapy. He is going to proceed under the guidance of Dr. Swanson for left atrial appendage occluder device placement. documented in this encounter [facility] 01-07-2024 Evaluation + Plan note Associated Problem(s): PAF (paroxysmal atrial fibrillation) At the moment he is in sinus rhythm. He will continue his rate control therapy. He will continue his anticoagulant therapy. He is going to proceed under the guidance of Dr. Swanson for left atrial appendage occluder device placement. [facility] 01-07-2024 History of Present illness Narrative Images from the original note were not included. Primary care provider: ANETTE Huynh (General) Dear Dr. Razo, I had the pleasure of seeing your patient, Wm Shea, at the [facility] on 01/07/2024 in follow-up. I have reviewed pertinent outside medical records available at this time regarding this patient. As you recall, this 73 y.o. male is managed by our group for a history of paroxysmal atrial fibrillation superimposed upon hypertension, hyperlipidemia, and myelodysplastic syndrome. Chief Complaint Patient presents with Follow-up 3 month follow up. Denies new/worsening cardiac symptoms. HPI: Initial HPI from: 06/24/2023 This is a 73-year-old white male who presents today for a new [facility] evaluation for paroxysmal atrial fibrillation superimposed upon a history of hypertension and hyperlipidemia. He is accompanied by his spouse. He has been previously evaluated cared for by [facility] in [place], [place]. He has undergone various cardiovascular studies [...] Notes that on 04/05/2023 after watching the [facility] [employer] game, he did not feel well. There were concerns of near-syncope. He states he presented to [facility] for further evaluation. It appears that his [...] He has remained on his pravastatin therapy. Interval History: 10/02/2023 This is a 73-year-old gentleman who presents today for an outpatient cardiovascular visit based upon concerns of atrial fibrillation/flutter superimposed upon hypertension hyperlipidemia with findings based upon a recent transthoracic echocardiogram of minimally reduced LVEF. He continues to undergo evaluation and care for myelodysplastic syndrome with chemotherapy. From a cardiac standpoint he denies any ongoing concerns of chest discomfort or difficulty breathing. There has been no orthopnea, PND, peripheral pitting edema. He has had no near-syncope or syncope. He does check his vital signs at home with his home heart rate and blood pressure monitor. He states at times his heart rate appears to be regular. At other times he knows it is irregular. Thus he believes he goes in and out of his atrial dysrhythmia. He has been asked with his chemotherapy, during his treatments, to decrease his apixaban/Eliquis to once a day. He has done that. When he is not undergoing his chemotherapy treatments then he is taking it twice a day. He knows that based upon recent laboratory tests done this morning his hemoglobin is approximately 8. He states he just recently received PRBCs. His platelet count was 70,000. He was asked to increase his beta-seamus dose based upon his echocardiogram findings. He has done so. So far he appears to be tolerating it well. He does present his home heart rate and blood pressure recordings. At times his heart rate is somewhat bradycardic but not markedly so. At times his systolic blood pressures are somewhat low in the 90s but not continually so. He had an ECG in the office today. He appeared to be in an underlying coarse atrial fibrillation/atrial flutter with controlled ventricular response with a PVC. Otherwise he had no acute electrocardiographic changes. Interval History: 01/07/2024 History of Present Illness The patient is a 73-year-old gentleman with a cardiovascular history of paroxysmal atrial fibrillation/flutter superimposed upon hypertension, hyperlipidemia, and myelodysplastic syndrome, who presents for outpatient cardiovascular follow-up. He is accompanied by his spouse. The patient has continued his outpatient cardiovascular follow-up with both general cardiology and electrophysiology. He states he does not necessarily sense his underlying atrial dysrhythmia but sometimes he can sense when he is in sinus rhythm versus atrial fibrillation based upon his energy level. Today he states he feels better than he did during his recent electrophysiology evaluation at which time he was told he remained in atrial fibrillation. Today he had a follow-up ECG. He was noted to be in sinus bradycardia with a ventricular rate of 52 beats per minute with no other acute electrocardiographic changes. He is having no ongoing symptoms of classic angina pectoris. There has been no overt issues of obvious acute CHF or pulmonary edema. He has had no near-syncope or syncope. He has undergone recent electrophysiology evaluation. It appears the plan is to move forward with placement of a left atrial appendage occluder device. This was reviewed with him today based upon his cardiovascular risk factors and his need to be without anticoagulant therapy based upon his underlying hematology/oncology diagnosis of his myelodysplastic syndrome and need for chemotherapy and reportedly a future bone marrow transplant. Based upon all of his information it appears reasonable to proceed in this manner and he is agreeable to proceed in this manner. He did have an echocardiogram performed prior to his visit today. He was noted to have preserved LV systolic function/LVEF. He did have moderately severe mitral valve insufficiency. He is noted to have an element of mitral valve insufficiency in the past. His left atrium was reported as severely dilated. Historical information was reviewed in the medical record. The following historical elements were reviewed by a provider in the specific [facility] simon and updated as appropriate: No Known Allergies Outpatient Encounter Medications as of 01/07/2024 Medication Sig Dispense Refill acyclovir 800 MG tablet Take 1 tablet by mouth 2 times daily. 60 tablet 3 apixaban 5 MG tablet Take 1 tablet by mouth every 12 hours. 60 tablet 11 carveDILOL 12.5 MG tablet Take 1 tablet by mouth 2 times daily with meals. 180 tablet 3 ELDERBERRY PO Take 2 capsules by mouth as needed for Other (Cold prevention). Fluconazole 200 MG tablet Take 2 tablets by mouth daily. 60 tablet 3 levoFLOXacin 500 MG tablet Take 1 tablet by mouth daily. 30 tablet 0 Melatonin 5 MG Chew Tab Chew 2 tablets as needed for Other (sleep onset). Ondansetron 4 MG Tab Dispersible tablet Take 2 tablets by mouth every 8 hours as needed for Nausea / Vomiting. 30 tablet 0 Pravastatin 40 MG tablet Take 1 tablet by mouth daily. valsartan 160 MG tablet Take 1 tablet by mouth daily. 90 tablet 3 [DISCONTINUED] acyclovir 800 MG tablet Take 1 tablet by mouth 2 times daily. 60 tablet 3 [DISCONTINUED] Fluconazole 200 MG tablet Take 2 tablets by mouth daily. 60 tablet 3 [DISCONTINUED] levoFLOXacin 500 MG tablet Take 1 tablet by mouth daily. [DISCONTINUED] Ondansetron 4 MG Tab Dispersible tablet Take 2 tablets by mouth every 8 hours as needed for Nausea / Vomiting. 30 tablet 0 No facility-administered encounter medications on file as of 01/07/2024. Past Medical History: Diagnosis Date Anemia November 2022 Arrhythmia 2009? A-fib Atrial fibrillation HTN (hypertension) Hypercholesteremia Sleep apnea [...] Used Substance and Sexual Activity Alcohol use: Yes Alcohol/week: 2.0 standard drinks of alcohol Types: 1 Glasses of wine, 1 Cans of beer per week Comment: I don't drink every week just once in a while Drug use: Never Sexual activity: Yes Partners: Female control/protection: None Other Topics Concern Occupational Exposure No Hobby Hazards No Social History Narrative Not on file Social Determinants of Health Financial Resource Strain: Not on file Food Insecurity: Not on file Transportation Needs: Not on file Physical Activity: Not on file Stress: Not on file Social Connections: Not on file Intimate Partner Violence: Not on file Housing Stability: Not on file Review of Systems Cardiovascular: Negative for chest pain, claudication, cyanosis, dyspnea on exertion, irregular heartbeat, leg swelling, near-syncope, orthopnea, palpitations, paroxysmal nocturnal dyspnea and syncope. On physcial exam today, the vital signs are as follows: Physical Exam Vitals and nursing note reviewed. Exam conducted with a printing bindery assistant present (Spouse.). Constitutional: Appearance: Normal appearance. HENT: Head: Normocephalic and atraumatic. Cardiovascular: Rate and Rhythm: Regular rhythm. Bradycardia present. No extrasystoles are present. Chest Wall: PMI [...] normal. Relevant diagnostic data includes the following: No results found for: CHOLESTEROL , TRIG , HDL , LDLCALC , LDLDIRECT , NHCHOL Lab Results Component Value Date WBC 2.57 (L) 12/29/2023 HGB 8.6 (L) 12/29/2023 HCT 25.1 (L) 12/29/2023 PLATELET 76 (L) 12/29/2023 MCV 90.6 12/29/2023 Lab Results Component Value Date SODIUM 138 12/29/2023 POTASSIUM 4.3 12/29/2023 CHLORIDE 108 12/29/2023 CO2 25 12/29/2023 BUN 18 12/29/2023 CREATSERUM 0.81 12/29/2023 GLUCOSE 91 12/29/2023 No results found for: TSH , MPV94CCN , HXQ20AMS , TSHBASELINE , TSHULTRASEN , TSHRFT4 Lab Results Component Value Date HGBA1C 7.0 (H) 12/29/2023 I have independently reviewed the following images/tracings: as noted below. Supplemental Information: ELECTROCARDIOGRAM 06/24/2023 [facility] 10/02/2023 [facility] ECHOCARDIOGRAM 07/29/2023 (Final) [facility] Interpretation Summary Frequent PACs/PVCs during the study. Normal left ventricular size with normal wall thickness. Mild systolic dysfunction with significant beat to beat variability, average biplane LVEF 49% GLS -17.1%. Grade I diastolic dysfunction. Mildly enlarged right ventricle with normal systolic function. Mild to moderate posteriorly directed mitral regurgitation. Otherwise no significant valvular heart disease. Mild RVSP elevation, estimated at 41 mmHg. 01/07/2024 [facility] Normal LV size and function, EF 57%. Normal RV size and function. Moderately severe LA dilation. Moderately severe eccentric MR. Moderate TR, RVSP 46 mm Hg. MYOCARDIAL PERFUSION STUDY 09/04/2023 [facility] Stress myocardial perfusion scan within normal limits. No evidence of ischemia. No evidence of prior myocardial injury. Mildly reduced left ventricular systolic function (45%). The baseline rhythm was atrial fibrillation with RVR + occasional PVC's The pharmacological stress ECG is negative at the heart rate obtained. CARDIAC CATHETERIZATION 04/23/2019 [facility] In summary, Mr. Shea is managed today for the following issues: PAF (paroxysmal atrial fibrillation) At the moment he is in sinus rhythm. He will continue his rate control therapy. He will continue his anticoagulant therapy. He is going to proceed under the guidance of Dr. Swanson for left atrial appendage occluder device placement. Nonrheumatic mitral valve insufficiency He does have a history of mitral valve insufficiency. This may contribute over time to his left atrial enlargement and his atrial fibrillation. It may make it somewhat more challenging to control his atrial dysrhythmia over time. However, the present time, he does not appear to be compromised by his mitral valve insufficiency with respect to left ventricular enlargement or systolic dysfunction or obvious symptoms/physical examination findings. Thus, this will need to be followed over time. Essential hypertension His blood pressure appears to be well controlled. He will continue his current medical management. Hyperlipidemia He will continue his lipid-lowering therapy. He is currently on pravastatin at 40 mg p.o. q.day. I have ordered the following: Diagnoses and all orders for this visit: PAF (paroxysmal atrial fibrillation) Nonrheumatic mitral valve insufficiency Essential hypertension Hyperlipidemia, unspecified hyperlipidemia type The above was discussed and reviewed with the patient and his spouse. They were both agreeable to this approach. We will plan on Return in about 6 months (around 07/09/2024).. If I can be of any further assistance, please do not hesitate to contact me. Sincerely, Jimmy Herrera MD, [facility] [employer] - Clinical Division of Cardiovascular Medicine Department of Internal Medicine [facility] Please be aware that portions of this note may have been completed with a voice recognition software system and an artificial intelligence system with the knowledge and approval of the patient. Despite efforts to edit the note mis-transcribed words may still be present. 12 Lead EKG performed per provider's order, per policy, and given to Dr. Herrera for interpretation. Medical printing bindery assistant offered to patient prior to sensitive procedure and patient declined documented in this encounter [facility] 12-29-2023 Nurse Note IR procedure of right bone marrow biopsy performed at the bedside per IR [facility] Korin Sargent CNP. Pt tolerated well with local numbing agent. A pressure dressing was applied to the site and patient instructed to lie supine with pressure on site for 20 minutes following procedure. LDA added for procedural site assessment. ACC RN will check site and document reassessment 20-45 minutes after procedure is completed in corresponding LDA. Keep dressing in place and dry for 24 hours if possible. Post procedure education performed at bedside. Will discharge pt to home with AVS given and all questions answered. [facility] 12-29-2023 Miscellaneous Notes IR procedure of right bone marrow biopsy performed at the bedside per IR [facility] Korin Sargent CNP. Pt tolerated well with local numbing agent. A pressure dressing was applied to the site and patient instructed to lie supine with pressure on site for 20 minutes following procedure. LDA added for procedural site assessment. ACC RN will check site and document reassessment 20-45 minutes after procedure is completed in corresponding LDA. Keep dressing in place and dry for 24 hours if possible. Post procedure education performed at bedside. Will discharge pt to home with AVS given and all questions answered. documented in this encounter [facility] 12-29-2023 History and physical note PERIOPERATIVE INTERVENTIONAL RADIOLOGY HISTORY AND PHYSICAL UPDATE Pre-procedure Diagnoses: Myelodysplastic syndrome Procedure to be performed: Unilateral bone marrow biopsy and aspiration Referring Provider: GRACE Ordaz History and Physical Update: BP 132/67 (BP Position: Sitting) Pulse 82 Temp 98.2 F (36.8 C) (Oral) Resp 16 Wt 105.4 kg (232 lb 6.4 oz) BMI 33.35 kg/m BSA 2.22 m I have reviewed Wm Shea's pertinent history, and reviewed the medication and allergy information in the computerized patient record. I have examined the patient, reviewed the previous H&P/progress note completed on 12/01/23 and there are no changes. Lab Results Component Value Date/Time PLATELET 76 (L) 12/29/2023 12:59 PM Current Allergies:No Known Allergies Code status is FULL Today's history and physical update was completed by GRACE Woo, 12/29/2023, 2:07 PM. IMPRESSION/PLAN Proceed with scheduled unilateral bone marrow biopsy and aspiration as previously planned Consent will be obtained immediately prior to the procedure and matches procedure being performed. [facility] 12-29-2023 History and physical note PERIOPERATIVE INTERVENTIONAL RADIOLOGY HISTORY AND PHYSICAL UPDATE Pre-procedure Diagnoses: Myelodysplastic syndrome Procedure to be performed: Unilateral bone marrow biopsy and aspiration Referring Provider: GRACE Ordaz History and Physical Update: BP 132/67 (BP Position: Sitting) Pulse 82 Temp 98.2 F (36.8 C) (Oral) Resp 16 Wt 105.4 kg (232 lb 6.4 oz) BMI 33.35 kg/m BSA 2.22 m I have reviewed Wm Shea's pertinent history, and reviewed the medication and allergy information in the computerized patient record. I have examined the patient, reviewed the previous H&P/progress note completed on 12/01/23 and there are no changes. Lab Results Component Value Date/Time PLATELET 76 (L) 12/29/2023 12:59 PM Current Allergies:No Known Allergies Code status is FULL Today's history and physical update was completed by GRACE Woo, 12/29/2023, 2:07 PM. IMPRESSION/PLAN Proceed with scheduled unilateral bone marrow biopsy and aspiration as previously planned Consent will be obtained immediately prior to the procedure and matches procedure being performed. documented in this encounter [facility] 12-29-2023 Hospital Discharge instructions Vivi Lee RN - 12/29/2023 2:30 PM EDT Images from the original note were not included. Bone Marrow Aspiration and Biopsy Bone marrow is the soft, spongy part inside bones. It makes most of the body s blood cells. Aspiration and biopsy are procedures done to take a sample of bone marrow out of the body for examination. To perform either procedure, a needle is inserted into one of your bones, usually the back of the hip bone. Then a sample of bone marrow is removed. . Why the procedures are done The procedures may be done for a number of reasons. They can help diagnose certain blood or bone marrow disorders or infections. They may help find certain cancers, such as leukemia. They can show if cancer in other areas of the body has spread to the bone marrow. They can be used during cancer treatment, such as chemotherapy, to monitor treatment progress. And they may be done before certain treatments, such as a stem cell transplant, which require a bone marrow sample. Your healthcare provider will explain why you need the procedure and answer any questions you have. The day of the procedure The procedures can be done at a hospital, clinic, or healthcare provider s office. They are performed by a healthcare provider or trained healthcare provider. Whether you re having one or both procedures, plan to be at the facility for 1 to 2 hours. You ll likely go home the same day. Before the procedure begins What to expect before the procedure: An IV line may be put into a vein in your arm or hand to provide medication. You may request pre-medications that will help you relax, if needed. When the procedure is complete,the site is bandaged, and pressure is applied to the site by lying on it for approximately 20 minutes to help stop bleeding. After the Procedure Most people can go home after a short period of observation. If you were given any premedications, an adult family member or friend must drive you home afterward. Site care and Recovering at home Avoid getting the procedure site wet. WAIT 24 HOURS BEFORE SHOWERING. REMOVE DRESSING AND SHOWER USUAL. PAT SITE DRY GENTLY AND COVER WITH BAND-AID IF SMALL ENTRANCE SITE IS NOT COMPLETELY CLOSED. DO NOT TAKE BATHS, SOAK IN HOT TUB, SWIM IN SONG OR POOLS FOR 72 HOURS FROM TODAY. If you wish, you may wash with a sponge or washcloth until your 24 hours are up. Take all medicines as directed. Care for the procedure site as instructed. Check for signs of infection at the procedure site (see below). Avoid heavy lifting and other strenuous activities for the next 24 hours.. Call the healthcare provider that ordered the procedure to report any of these signs or symptoms of infection: Fever of 100.4 F (38 C) or higher, or as directed by your healthcare provider Signs of infection at the procedure site, such as increased redness or swelling, warmth, worsening pain, bleeding, or foul-smelling drainage Bleeding through the dressing that continues in spite of reapplying pressure to the area for 30 minutes Follow-up Your healthcare provider will discuss the results with you when they are ready. This is usually within a week after the procedure. Risks and possible complications of these procedures These include: Severe bleeding or bruising at the procedure site Infection at the procedure site Bone fracture Bone infection Date Last Reviewed: 02/16/[id number] [employer] [address] [place] [address], [place] [address]. All rights reserved. This information is not intended as a substitute for professional medical care. Always follow your healthcare professional's instructions. documented in this encounter [facility] 12-29-2023 Note CALEB Kang 12/29/2023 2:59 PM Unilateral Bone Marrow Biopsy and Aspiration Procedure Note PROCEDURE PERFORMED BY: GRACE Woo ASSISTED BY: Vivi Lee RN; ADA Mac PROCEDURE PERFORMED: Right bone marrow biopsy with aspiration LOCATION: In IR/[facility] PREOPERATIVE DIAGNOSIS(ES): MDS POSTOPERATIVE DIAGNOSIS(ES): MDS s/p right bone marrow biopsy and aspiration PROCEDURE DETAILS, FINDINGS AND PLAN: INDICATIONS FOR PROCEDURE: Disease evaluation ANESTHESIA: 10mL 2% lidocaine PREMEDICATION: None UNIVERSAL PROTOCOL REQUIRED: Yes PROCEDURE DETAILS: The procedure, its risks and benefits, specifically including bleeding, infection, numbness, tingling, and pain were discussed in detail with the patient. Written informed consent was obtained for a bone marrow biopsy procedure. Consent was reviewed with the patient and then obtained for a unilateral bone marrow biopsy procedure. Once the consent was reviewed and signed, the patient was not premedicated. Immediately prior to the procedure a time out and universal protocol was performed at the bedside. The patient placed in prone position and the right posterior superior iliac crest was prepped and draped in a sterile fashion. The right iliac crest site including skin, subcutaneous tissue, and periosteum were anesthetized using 10 mL of 2% lidocaine. The 4 in Oncontrol needle was used to obtain bone marrow aspirate and positive spicules were noted. The core biopsy was then obtained with the 4 in Oncontrol needle, however the specimen was inadequate. A Jamshidi needle was then used to obtain additional core. A sterile dressing was placed. The patient tolerated the procedure well. The specimens were processed according to the orders: surgical pathology, bone marrow basic, immunophenotyping, cytogenetics, and hematologic neoplasm. The patient was instructed to lie supine with pressure on site for 20 minutes following procedure. Procedure site added to LDA for assessment. RN notified to perform and document site reassessment 20-45 minutes after procedure is completed in corresponding LDA. Keep dressing in place and dry for 24 hours if possible. SPECIMEN(S) REMOVED: 11mL aspirate; 1 core; 1 clot FINDINGS: Pending lab results DISPOSITION OF SPECIMEN(S): To lab STUDY SAMPLES: None CONDITION: Stable COMPLICATIONS: None ESTIMATED BLOOD LOSS: <5mL RESULTS: Pending PLAN: The patient was discharged home with his ; post procedural instructions were given. Procedure site added to LDA for assessment. RN notified to perform and document site reassessment 20-45 minutes after procedure is completed in corresponding LDA. Keep dressing in place and dry for 24 hours if possible. All questions were answered. The patient will follow up with Dr. Lewis. [facility] 12-29-2023 Procedure note Associated Ord er(s): BONE MARROW ASPIRATE AND BIOPSY Unilateral Bone Marrow Biopsy and Aspiration Procedure Note PROCEDURE PERFORMED BY: Korin Sargent APRN-FRANCISCO ASSISTED BY: Vivi Lee RN; ADA Mac PROCEDURE PERFORMED: Right bone marrow biopsy with aspiration LOCATION: In [facility] PREOPERATIVE DIAGNOSIS(ES): MDS POSTOPERATIVE DIAGNOSIS(ES): MDS s/p right bone marrow biopsy and aspiration PROCEDURE DETAILS, FINDINGS AND PLAN: INDICATIONS FOR PROCEDURE: Disease evaluation ANESTHESIA: 10mL 2% lidocaine PREMEDICATION: None UNIVERSAL PROTOCOL REQUIRED: Yes PROCEDURE DETAILS: The procedure, its risks and benefits, specifically including bleeding, infection, numbness, tingling, and pain were discussed in detail with the patient. Written informed consent was obtained for a bone marrow biopsy procedure. Consent was reviewed with the patient and then obtained for a unilateral bone marrow biopsy procedure. Once the consent was reviewed and signed, the patient was not premedicated. Immediately prior to the procedure a time out and universal protocol was performed at the bedside. The patient placed in prone position and the right posterior superior iliac crest was prepped and draped in a sterile fashion. The right iliac crest site including skin, subcutaneous tissue, and periosteum were anesthetized using 10 mL of 2% lidocaine. The 4 in Oncontrol needle was used to obtain bone marrow aspirate and positive spicules were noted. The core biopsy was then obtained with the 4 in Oncontrol needle, however the specimen was inadequate. A Jamshidi needle was then used to obtain additional core. A sterile dressing was placed. The patient tolerated the procedure well. The specimens were processed according to the orders: surgical pathology, bone marrow basic, immunophenotyping, cytogenetics, and hematologic neoplasm. The patient was instructed to lie supine with pressure on site for 20 minutes following procedure. Procedure site added to LDA for assessment. RN notified to perform and document site reassessment 20-45 minutes after procedure is completed in corresponding LDA. Keep dressing in place and dry for 24 hours if possible. SPECIMEN(S) REMOVED: 11mL aspirate; 1 core; 1 clot FINDINGS: Pending lab results DISPOSITION OF SPECIMEN(S): To lab STUDY SAMPLES: None CONDITION: Stable COMPLICATIONS: None ESTIMATED BLOOD LOSS: <5mL RESULTS: Pending PLAN: The patient was discharged home with his ; post procedural instructions were given. Procedure site added to LDA for assessment. RN notified to perform and document site reassessment 20-45 minutes after procedure is completed in corresponding LDA. Keep dressing in place and dry for 24 hours if possible. All questions were answered. The patient will follow up with Dr. Lewis. [facility] 12-29-2023 Procedure note Associated Ord er(s): BONE MARROW ASPIRATE AND BIOPSY Unilateral Bone Marrow Biopsy and Aspiration Procedure Note PROCEDURE PERFORMED BY: GRACE Woo ASSISTED BY: Vivi Lee RN; ADA Mac PROCEDURE PERFORMED: Right bone marrow biopsy with aspiration LOCATION: In IRAP/[facility] PREOPERATIVE DIAGNOSIS(ES): MDS POSTOPERATIVE DIAGNOSIS(ES): MDS s/p right bone marrow biopsy and aspiration PROCEDURE DETAILS, FINDINGS AND PLAN: INDICATIONS FOR PROCEDURE: Disease evaluation ANESTHESIA: 10mL 2% lidocaine PREMEDICATION: None UNIVERSAL PROTOCOL REQUIRED: Yes PROCEDURE DETAILS: The procedure, its risks and benefits, specifically including bleeding, infection, numbness, tingling, and pain were discussed in detail with the patient. Written informed consent was obtained for a bone marrow biopsy procedure. Consent was reviewed with the patient and then obtained for a unilateral bone marrow biopsy procedure. Once the consent was reviewed and signed, the patient was not premedicated. Immediately prior to the procedure a time out and universal protocol was performed at the bedside. The patient placed in prone position and the right posterior superior iliac crest was prepped and draped in a sterile fashion. The right iliac crest site including skin, subcutaneous tissue, and periosteum were anesthetized using 10 mL of 2% lidocaine. The 4 in Oncontrol needle was used to obtain bone marrow aspirate and positive spicules were noted. The core biopsy was then obtained with the 4 in Oncontrol needle, however the specimen was inadequate. A Jamshidi needle was then used to obtain additional core. A sterile dressing was placed. The patient tolerated the procedure well. The specimens were processed according to the orders: surgical pathology, bone marrow basic, immunophenotyping, cytogenetics, and hematologic neoplasm. The patient was instructed to lie supine with pressure on site for 20 minutes following procedure. Procedure site added to LDA for assessment. RN notified to perform and document site reassessment 20-45 minutes after procedure is completed in corresponding LDA. Keep dressing in place and dry for 24 hours if possible. SPECIMEN(S) REMOVED: 11mL aspirate; 1 core; 1 clot FINDINGS: Pending lab results DISPOSITION OF SPECIMEN(S): To lab STUDY SAMPLES: None CONDITION: Stable COMPLICATIONS: None ESTIMATED BLOOD LOSS: <5mL RESULTS: Pending PLAN: The patient was discharged home with his ; post procedural instructions were given. Procedure site added to LDA for assessment. RN notified to perform and document site reassessment 20-45 minutes after procedure is completed in corresponding LDA. Keep dressing in place and dry for 24 hours if possible. All questions were answered. The patient will follow up with Dr. Lewis. documented in this encounter [facility] 12-29-2023 History of Present illness Narrative Patient presents to [facility] for labs. Results are as follows: WBC: 2.57 HGB: 8.6 PLTS: 76 Outpatient parameters: Hgb: 8 Plts:20 Vitals: Vitals: 12/29/23 1200 BP: 132/67 Pulse: 82 Resp: 16 Temp: 98.2 F (36.8 C) Results reviewed with patient, and they are in agreement with plan. AVS reviewed with patient. No further needs from clinic. Patient discharged from [facility] in stable condition. Labs faxed to [facility] at patient's request [phone] with confirmation. BM Biopsy Checklist Please complete by answering yes, no or n/a IV access present (Will patient require IV premeds)? Port Labs (CBC w/ diff reviewed) - Yes Platelet transfusion required? No Has the patient held anti-coagulation (if applicable) n/a Ask/verify if patient is on Research trial No SOCIAL WORK PROGRAM COORDINATOR evaluation/ BM bx orders placed Yes Handoff RN to ACC certified detention deputy ([phone]) Name of individual report given to: Left message on charge phone documented in this encounter [facility] 12-29-2023 Instructions Bridgette Lopez RN - 12/29/2023 1:00 PM EDT Results for orders placed or performed in visit on 12/29/23 COMPREHENSIVE METABOLIC PANEL Result Value Ref Range Sodium 138 135 - 145 mmol/L Potassium 4.3 3.5 - 5.0 mmol/L Chloride 108 98 - 108 mmol/L BUN 18 7 - 25 mg/dL Creatinine 0.81 0.70 - 1.30 mg/dL Glucose 91 70 - 99 mg/dL Bilirubin Total 0.5 <1.5 mg/dL Albumin 4.1 3.5 - 5.0 g/dL Total Protein 6.7 6.4 - 8.3 g/dL AST 31 10 - 39 U/L ALP 65 32 - 126 U/L Calcium 9.2 8.6 - 10.5 mg/dL CO2 25 21 - 31 mmol/L ALT 39 10 - 52 U/L Bun/Crea Ratio 22 Osmolality (Calculated) 291 278 - 305 mOsm/kg Anion Gap 9 7 - 17 mmol/L eGFR, CKD-EPI, Male >90 >=60 mL/min/1.73m2 CBC AND ELECTRONIC DIFF Result Value Ref Range WBC Count 2.57 (L) 3.73 - 10.10 K/uL RBC Count 2.77 (L) 4.38 - 5.83 M/uL Hemoglobin 8.6 (L) 13.4 - 16.8 g/dL Hematocrit 25.1 (L) 39.6 - 48.8 % Mean Cell Volume 90.6 79.0 - 94.5 fL Mean Cell Hgb 31.0 26.1 - 33.3 pg Mean Cell Hgb Conc 34.3 31.9 - 36.5 g/dL RBC Distribution 16.1 (H) 10.9 - 14.3 % Platelet Count 76 (L) 146 - 337 K/uL Mean Platelet Volume 12.2 8.7 - 12.3 fL DIFF STATUS Electronic Differential Segs + Bands Auto 35.8 % Immature Grans % 1.2 % Lymphocyte % Auto 52.5 % Monocyte % Auto 3.5 % Eosinophil % Auto 7.0 % Basophil % Auto 0.0 % Nucleated RBC 0.0 <=0.2 /100 WBC Segs + Bands,Absolute Auto 0.92 (L) 1.57 - 6.19 K/uL Immature Grans Absolute <0.04 <=0.07 K/uL Abs Lymph Auto 1.35 0.83 - 3.57 K/uL Abs Rowan Auto 0.09 (L) 0.24 - 0.93 K/uL Abs Eos Auto 0.18 0.00 - 0.48 K/uL Abs Baso Auto <0.04 0.00 - 0.09 K/uL documented in this encounter [facility] 12-02-2023 History of Present illness Narrative CARE Clinic Assessment Wm Shea 73 y.o. male was seen by WM today as part of the [facility] Cancer and Aging Resiliency (CARE) Clinic. Patient being treated for myelodysplastic syndrome. SW introduced self and explained role of SW in the multidisciplinary team. Patient attending clinic today with his spouse Yamile, who is also his primary support. Patient agreeable to answering WM questions and easily engaged. Patient and spouse reside in a single story home with both a tub/shower combo and a walk-in shower. Patient noting there are 2-3 steps to enter. SW asked if patient has completed Advanced Directives previously. Patient sharing that he has and that he has copies of Advanced Directives at home. SW requesting that patient provide a copy at any future [facility] appointment, to get them uploaded with [facility]. Patient voicing agreement and SW explained that without documents, patient's spouse is his Legal Next of Kin for healthcare decision making. Patient again voicing agreement. Patient confirming PACK OUT OPERATOR, Brittani Razo for his primary care. 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 Patient receiving pension/shelter and social security and sharing that they have no current financial concerns. Patient denies having any current HHC. Patient has an elevated toilet seat at home and this is the only DME, but shared that he and several friends/neighbors share any DME. Patient stating that his rosalie is very important and he attends [facility] in [place]. Patient endorses being independent in nearly all of his ADL's and IADL's. Patient is independent in bathing, dressing, toileting, medications and driving. Patient sharing that he and his spouse assist each other with meal prep, shopping, homemaking and patient is independent with laundry as he washes his own. Patient and spouse also do their own banking but share bill paying. Patient's hobbies include yard work, chopping wood, playing golf, watching [employer] football and attending and watching his grand kids play various sports. Patient has 2 adult children and his spouse has 2 adult children. Patient has support from his spouse, his daughter, son, his spouses two children, his sisters. WM did discuss with patient the [facility] and did make an email referral today on patient's behalf. WM also discussed with patient his/her local [facility], [facility], in [place], [place], noting that they provide support and education as well as services to those over the age of 60 living in their own homes. At the conclusion of the visit, informed patient that SW will also assist in coordination of care if other services are recommended by CARE Clinic Team today. In the future they may request to speak with the BENJAMIN or Bungy Jump Master who follows their primary hematology or oncology team for ongoing case management and social support needs. WM RECOMMENDATIONS: [facility] Program, . SW made referral today and they will be reaching out. [facility], , for local needs or services is a great place to start. 3. Communication to BENJAMIN Mccabe for Dr. Lewis to continue to follow for any additional needs. WM/Phone #: [phone] 12/02/23 1200 PCP Does patient have PCP or other medical provider he/she sees regularly? Yes Advance Directives Type of Advance Directive none (Patient has completed Advanced Directives and has these at home. SW requested that he provide copies during future appointment(s).) Patient Requests Advance Directives Information no Living Environment Provides Primary Care For no one Primary Care Provided By self Support System Sources Of Support spouse;adult child(razia);other family members;sibling(s) IADL Is the patient's current functional status different than their prior functional status Yes Medications independent Meal Preparation assistive person;independent (Patient and spouse share, and patient noting he is able to cook things that he wants to eat) Housekeeping independent;assistive person (Patient and spouse share) Laundry independent (Patient does his own laundry) Shopping independent;assistive person (Patient and spouse share this task) Oral Care independent Bathing independent Dressing independent Toileting independent Eating independent Swallowing independent Climbing Stairs independent Transferring independent Ambulating independent IADL Comments Patient continues driving Patient Understanding of Condition and Treatment Understanding Of Condition And Treatment adequate understanding of medical condition;adequate understanding of treatment Patient's Reaction to Health Status Reaction To Health Status accepting;adjusting;hopeful DME DME (RECAPPER) Elevated Toilet Seat (Patient and spouse have friends/neighbors who also share DME as needed with each other) Concerns Concerns coming to the [place] no Driving/Travel Near misses/Accidents/Local/Highway/Pas senger with concerns no Cultural, Spiritual, Synagogue Practices Cultural, Spiritual, Synagogue Practices Patient stating that his rosalie is important to him. Employment/Financial Employed? 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 RHODA [place] CARE Clinic/Radiation Oncology Pager [phone] For Evening (4:30pm-8am) and Weekend SW needs please call [phone] or page [phone] Attending Addendum I have seen and examined this patient independent of the fellow. The plan was developed mutually at the time of the visit with the patient. The fellow's note has been reviewed and modified as required. I directed the patient's care and counseling, and I agree with the medical decision making as documented. Mr. Shea is doing Well, he does have evidence of MCI, hearing loss, but incredibly fit physically. Kelsea HANDY Inspector Rubber Stamp Die/Division of Hematology Pager [phone] PHARMACY: Medication Therapy Management Reviewed prescription and nonprescription medications with the patient, evaluating for any drug related problems. See below for identified drug therapy problems. 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 Patient is very knowledgeable about medication names, indications, dosages, times of day, how to take, side effects and history. Patient used a home medication list for the medication reconciliation portion of the visit Adherence with his medication regimen is excellent. He reports adherence with his medication regimen 7/7 days a week. Medications are organized using in original containers. Patient denies issues accessing or affording medications. Confirmed patient's preferred pharmacy: [facility] [address] [place], [place] [phone] - [id number] [phone] Medication Specifics: Patient is taking the following anticoagulants or other medications which may increase bleeding risk: Apixaban Patient is taking the following which may affect appetite or nutrition: None The following medications were identified as potential therapeutic duplications, unnecessary or without indication: None The following clinically significant drug-drug interactions were identified: None The following potentially inappropriate medications (PIM) according to the Beers Criteria were identified: Apixaban due to increased risk of bleeding. Patient is taking the following which are dosed inappropriately based on renal/hepatic function and/or are causing excessive sedation, dizziness or altered level of consciousness: None Identified Drug Therapy Problems (DTPs): DTP Category DTP Resolution Medication list reconciliation Medications reconciled: Yes Removed unused medications, added medications, updated dosage/sig, and confirmed accuracy Administration/ technique Carvedilol. Needs to take consistently Education provided to patient Pharmacy Recommendations: As a reminder, take carvedilol with food to minimize risk of orthostatic hypotension (dizziness after standing up quickly) Review sleep hygiene info to see if any of these may work for you Julissa Looney, DavidD, MPH, BCACP, CTTS Specialty Practice Pharmacist Pager: The following clinical intervention(s) beyond standard practice occurred during today s visit: Provided therapy recommendations or management for safe and effective medication use Images from the original note were not included. Patient Demographics Date of Visit 12/02/2023 Diagnosis MDS Age 73 y.o. Date of Diagnosis Current Therapy On Treatment Treatment Description Azacitadine Comorbid Conditions MDS Afib on eliquis FATIMAH HTN Dyslipidemia Hx of GI bleed GERIATRIC ASSESSMENT HPI: Pt has been referred for a geriatric assessment to evaluate and intervene upon occult factors common with aging that may contribute to treatment toxicity. Living with Cancer, how has cancer impacted your quality of life? (physical function, mental health, social role) It has affected his social role. He is not able to travel as frequently due to timing of chemotherapy appointments and other appointments at the [facility]3]. He is not able to golf as frequently due to appointments and feeling more tired the week after chemotherapy. What matters most to you? Maintaining independence Geriatric Assessment Metric Result [facility] CARE Clinic Assessment Cognitive Concerns of chemo brain no Short term memory concerns no Self Report of Exhaustion? no Physical health and interference with social activities Some of the time Do you feel sad or depressed? no Anxiety JULIETH-2: Feeling nervous, anxious, or on edge? no Not being able to stop or control worrying? no Pain 0-10 [10=worst] 0 (No Pain) Presence of Pain: Presence of Pain: denies pain/discomfort DVPRS Pain at Rest ETOH? no Smoking Status? never smoker Current Cannabis Use? No Geriatric Syndromes Insomnia- sometimes The following PT assessments were completed: 12/02/2023 11:00 AM PT Outcome Tools 5X Sit to Stand Test recorded time 7.4 seconds Timed Walk test dist (ft) 465 feet Timed Walk test time (min) 2 minutes Timed Walk test dist (m) 141.73 meters Timed Walk test speed (m/s) 1.18 m/sec Timed Walk test assistive device No device SPPB Balance 4 SPPB Gait speed 4 SPPB Repeated Chair Stand 4 SPPB Total Score 12 Physical exam Vitals: 12/02/23 0834 BP: 126/59 Pulse: 80 Resp: 18 Temp: 98.1 F (36.7 C) SpO2: 99% GENERAL: Ambulatory, conversational, no apparent distress. SKIN: No rashes or lesions. EYES: PERRL, no scleral injection. ENMT: Neck supple. LYMPHATIC: No cervical, axillary, or supraclavicular adenopathy. RESP: Clear to auscultation bilaterally posteriorly, no wheezes. CARDIO: Regular rate and rhythm. ABD: Abdomen soft, non-tender. No masses or organomegaly. BACK: No vertebral tenderness. EXTREMITIES: No significant edema. NEURO: Nonfocal. Assessment: 1. Geriatric Syndromes Identified: Mild cognitive impairment Clinical Frailty Score: Well Mild cognitive impairment identified. No referrals needed. He is active with chopping wood, mowing the lawn, and golfing. Recommend continuing with regular exercise. Vitamin D and A1c ordered for next lab draw. Oncology Distress Screenin12/02/2023 9:00 AM Oncology Distress Screen Would you say your health is: Very good Would you say your quality of life is: Very good Rate your physical health Very good Rate your mental health/mood/ability to think Excellent Rate your satisfaction with social activities/relationships Excellent To what extent are you able to carry out everyday physical activities Completely Rate how well you carry out usual social activities and roles Excellent How would you rate your pain on average? 0 How would you rate your fatigue on average? Mild How often have you been bothered by emotional problems Never [employer] Physical [employer] T-Score 57.7 [employer] Mental [employer] T-Score 62.5 Cognition: The MOCA (memory,orientation, concentration) score = MOCA Total Score: 22 The MOCA Memory Test was performed during this clinic visit and you were found to have mild memory impairment. Your score was 22/30. 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 Follow-up with an environmental services specialist for a hearing aid evaluation if communication difficulties arise. Follow up with an environmental services specialist for re-evaluation in one to to years, sooner if hearing changes are noted. Use hearing protection when exposed to loud sounds. Social Work/Hand Fabric Cutter: Your local Area Agency on Aging is [facility], located in [place], [place], which covers [facility]. For more information, options for home support, and education for those over the age of 60, please call [phone], or visit [email or web address]. Physical Therapy: SPPB:Score= 12 [Interpretation <9 = impairment in Higher Level Balance] 5X Sit to Stand: Score= 7.4 [Intepretation >15 at risk for falls = Strength] Gait Speed: Score= 1.18 [Interpretation: typical gait speed 0.7 - 1.1 m/s, increased risk of falls below 0.7 m/s] Nutrition: Poor nutritional status is associated with increased mortality and poor chemotherapy tolerance. The Mini Nutrition Assessment was performed during this visit and you were found to at risk for malnutrition. Your score was 11. 11 is at risk of malnutrition. NUTRITION RECOMMENDATIONS AND GOALS: Plant-based diet Plant Based diet Balance carb and protein at all meals and snacks Have protein food at each meal. Weight maintenance during treatment as able Encourage fluid intake. Goal of 64 fl oz daily. Recommend protein shake 1x daily for additional protein. Brittney Dang MD [facility] Cancer and Aging Resiliency Clinic documented in this encounter [facility] 12-02-2023 History of Present illness Narrative [facility] Clinic - Audiologic Evaluation Subjective Wm Shea, 73 y.o. year-old male, was seen by audiology on 12/02/2023 as part of the [facility] Cancer and Aging Resiliency (CARE) Clinic. The patient reported some difficulty understanding conversation in background noise. 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 The patient denied tinnitus, family history of hearing loss, and prior hearing aid use. The patient also denied previous ear surgery, vertigo, otalgia, otorrhea, and aural fullness. Falls Risk Assessment Fallen within the last year: No Do you have a fear of falling: No Objective Otoscopy was performed bilaterally and revealed unremarkable appearance in the right ear and unremarkable appearance in the left ear. Tympanometry was conducted bilaterally. Results are recorded in the table below. Right Ear Left Ear Static Admittance 0.96 mmho 0.54 mmho Tympanometric Peak Pressure -7 daPa -11 daPa Ear Canal Volume 1.7 mL 1.47 mL Tympanogram Type A A Pure-tone air-conduction audiometry was conducted bilaterally via HDA 300 Headphones. Reliability was considered Good. Thresholds are recorded in the table below. Frequency (Hz) Right Ear Threshold Left Ear Threshold 250 10 dB HL 15 dB HL 500 15 dB HL 20 dB HL 1000 15 dB HL 20 dB HL 2000 25 dB HL 30 dB HL 3000 50 dB HL 55 dB HL 4000 55 dB HL 60 dB HL 6000 70 dB HL 70 dB HL 8000 70 dB HL 70 dB HL Pure-tone bone-conduction audiometry was conducted. Thresholds are recorded in the table below. Frequency (Hz) Right Ear Threshold 500 15 dB HL 1000 10 dB HL 2000 30 dB HL 3000 50 dB HL 4000 50 dB HL Speech recognition thresholds (SRTs) and word recognition scores (WRSs) were obtained bilaterally. Results are recorded in the table below. Right Ear Left Ear SRT Source Recorded Speech Recorded Speech SRT 20 dB HL 30 dB HL WRS Source Recorded Speech Recorded Speech WRS List MARIA LUZ W-22 List 1A MARIA LUZ W-22 List 1A WRS 100 % correct 96 % correct WRS Level 70 dB HL 70 dB HL WRS Masking Level [40 dB EM] [40 dB EM] Assessment Tympanometric results revealed normal static admittance, normal tympanometric peak pressure, and normal ear canal volume in the right ear and normal static admittance, normal tympanometric peak pressure, and normal ear canal volume in the left ear. Audiometric results revealed normal hearing through 2000 Hz with a moderate to moderately-severe sensorineural hearing loss in the right ear and normal hearing through 1000 Hz with a mild to moderately-severe sensorineural hearing loss in the left ear. Word recognition scores were excellent in the right ear and excellent in the left ear when presented at a comfortable listening level. Plan It was recommended that the patient follow-up with an environmental services specialist for a hearing aid evaluation if communications difficulties are noted. It was recommended that the patient follow-up with an environmental services specialist for re-evaluation in one to two years, sooner if hearing changes are suspected. It was recommended that the patient use hearing protection when exposed to loud sounds. Results of the audiologic evaluation and further recommendations were discussed with the patient. The patient verbally demonstrated understanding of the results and was amenable to the recommendations. Jarred Lieberman, ABAC documented in this encounter [facility] 12-02-2023 History of Present illness Narrative [facility] Clinic Nutrition Note Mr. Wm Shea is a 73 y.o. male with MDS Treatment Hx/Plan: Azacitadine, being evaluated for BMT Pertinent Nutrition Related Labs: Reviewed Lab Results Component Value Date SODIUM 138 11/27/2023 POTASSIUM 4.7 11/27/2023 CHLORIDE 106 11/27/2023 CO2 25 11/27/2023 BUN 25 11/27/2023 CREATSERUM 1.04 11/27/2023 GLUCOSE 90 11/27/2023 No results found for: MAGNESIUM Vitamin D: No components found for: VITAMIN D 25 HYDROXY HGA1c: No results found for: HGBA1C Lipids: No results found for: CHOLESTEROL , TRIG , HDL , LDLCALC , LDLDIRECT Anthropometrics: Height: Ht Readings from Last 1 Encounters: 12/02/23 1.778 m (5' 10 ) Weight: Wt Readings from Last 1 Encounters: 12/02/23 103.7 kg (228 lb 9.6 oz) BMI: Estimated body mass index is 32.8 kg/m as calculated from the following: Height as of this encounter: 1.778 m (5' 10 ). Weight as of this encounter: 103.7 kg (228 lb 9.6 oz). IBW Range: 166 lbs. +/- 10% Pt. Weight goal: 182 lbs. Weight History: Wt Readings from Last 15 Encounters: 12/02/23 103.7 kg (228 lb 9.6 oz) 12/02/23 103.7 kg (228 lb 9.6 oz) 11/27/23 104.3 kg (230 lb) 10/30/23 103 kg (227 lb) 10/07/23 104.5 kg (230 lb 4.8 oz) 10/02/23 103.4 kg (228 lb) 09/04/23 104.8 kg (231 lb) 08/20/23 105.9 kg (233 lb 8 oz) 08/11/23 105.3 kg (232 lb 3.2 oz) 08/04/23 104.3 kg (229 lb 14.4 oz) 07/29/23 104.8 kg (231 lb 0.7 oz) 07/07/23 104.8 kg (231 lb 1.6 oz) 06/24/23 104.3 kg (230 lb) Weight history: Pt states weight is stable Estimated Needs: Based on: 103.7 kg (CBW) Kcal Needs: 2200-kcals/day ([place]-Jeor x Activity Factor 1.2 ) Pro Needs: 104-125 grams/day(1.0-1.2 g/kg CBW ) Fluid Needs: 2200-ml/day (1 mL/1 kcal) Mini Nutritional Assessment/Screening (Adults 65 and Older) A. Has food intake declined over the past 3 months due to loss of appetite, digestive problems, chewing or swallowing difficulties?: (P) 2 - No decrease in food intake B. Weight Loss During the Last 3 Months: 3 - No weight loss C. Mobility: 2 - Goes out D. Has suffered psychological stress or acute disease in the past 3 months?: (P) 0 - Yes E. Neuropsychological Problems: (P) 1 - Mild dementia BMI (Calculated): 32.9 F1. MNA Body Mass Index (BMI) (Weight in kg)/(Height in m)2: (P) 3 Mini Nutritional Screening Score : (P) 11 Nutrition-Focused Physical Exam NFPE deferred due to clinic flow/time constraints NUTRITION Current diet/intake Regular Oral supplement Has protein shakes at home ( not sure of the name) Fluids Adequate Appetite good Barriers to oral intake None per patient GI Function No complaints ; Denies N/V/C/D Chewing/swallowing difficulty No Issues Food allergies/intolerances Allergies: No known food allergies Intolerances: none reported Food access/prep Adequate food access; No concerns reported today Vitamin/Mineral Supplements: See Med list Food Intake History: B: Granola bar, L: meat, starch, vegetable D: meat, starch, vegetable S: boiled eggs, peanut butter F: water a lot Subjective Notes: Pt states: He was asking if he can actively lose weight before the transplant. Encouraged him to increase his protein intake. He states his weight has been stable He is willing to try protein shakes on a daily basis. Has some at home but not sure of the name. Nutrition Diagnosis: Nutrition Diagnosis Statement: NB-1.1 Food- and Nutrition-Related Knowledge Deficit related to Uncertainty how to apply nutrition information As evidenced by information we discussed . Predicted Suboptimal Energy (NI-1.6) Intake related to planned medical therapy that is predicted to decrease ability to consume sufficient energy Malnutrition Assessment: based on the AND/ASPEN Malnutrition Criteria 2012. Patient does not meet malnutrition criteria for diagnosis; *based on the AND/ASPEN Malnutrition Criteria 2012 Intervention Counseling Encouraged continued consumption of multiple meals daily + snacks to maintain adequate PO intake. Encouraged small, more frequent meals to optimize PO intake. Educated on using high protein foods at meals and snacks. Encouraged fluid intake, with goal of 64+ fl oz daily. Utilize snacks between meals as able. Educated pt on maintaining weight and optimizing nutrition prior to transplant. Discussed strategies for taste changes as needed. Handouts Provided Yes - Healthy snacks [facility] Nutrition Services Meeting Your Needs For Protein [facility] Nutrition Services Plant-Based Diet; Source: [facility] Ready to drink Protein shakes [facility] Nutrition Services Healthy Meals [facility] Pt Readiness to Change good Support Person Yes - NUTRITION RECOMMENDATIONS AND GOALS:Plant-based diet Plant Based diet Balance carb and protein at all meals and snacks Have protein food at each meal. Weight maintenance during treatment as able Encourage fluid intake. Goal of 64 fl oz daily. Recommend protein shake 1x daily for additional protein. Learning Needs Identified: can read and write adequately Barriers to Education: none Understanding Demonstrated: Completely understand Expected Compliance: good Monitoring and Evaluation: 1. RD name and contact information provided; encouraged pt to contact RD with any questions or concerns. Alex Farrell RD Hematology/Oncology Dietitian documented in this encounter [facility] 12-02-2023 Instructions RHODA Mcfarland - 12/02/2023 9:00 AM EDT Images from the original note were not included. [facility] Multidisciplinary Team Doctor/PACK OUT OPERATOR: Akua Cintron MD Pharmacist: Julissa Looney PharmD Yard Manager: Jarred Lieberman Dietitian: Leander Nichols RD Physical Therapist: Emiliano Lou PT RN: DAVID Blake All follow up consults/equipment will be managed by: Charmaine Gaffney [phone] Cancer and Aging Summary Overview of Plan Well: Identified mild cognitive impairment. You are fit. No additional referrals needed. Recommend continuing with regular exercise. Nutrition: The Mini Nutrition Assessment was performed during this visit and you were found to at risk for malnutrition. Your score was 11. 0-7 is malnourished, 8-11 is at risk of malnutrition, and 12-14 is normal nutritional status. NUTRITION RECOMMENDATIONS AND GOALS: Plant-based diet Plant Based diet Balance carb and protein at all meals and snacks Have protein food at each meal. Weight maintenance during treatment as able Encourage fluid intake. Goal of 64 fl oz daily. Recommend protein shake 1x daily for additional protein. 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 Follow-up with an environmental services specialist for a hearing aid evaluation if communication difficulties arise. Follow up with an environmental services specialist for re-evaluation in one to to years, sooner if hearing changes are noted. Use hearing protection when exposed to loud sounds. Social Support/Case Management: Your local Area Agency on Aging is [facility], located in [place], [place], which covers [facility]. For more information, options for home support, and education for those over the age of 60, please call [phone], or visit [email or web address]. Physical Therapy: SPPB:Score= 12 [Interpretation <9 = impairment in Higher Level Balance] 5X Sit to Stand: Score= 7.4 [Intepretation >15 at risk for falls = Strength] Gait Speed: Score= 1.18 [Interpretation: typical gait speed 0.7 - 1.1 m/s, increased risk of falls below 0.7 m/s] Cognition: The MOCA Memory Test was performed during this clinic visit and you were found to have mild memory impairment. Your score was 23/30. 26-30 is considered normal cognition 18-25 is considered mild cognitive impairment 10-17 is considered moderate cognitive impairment <10 is considered severe cognitive impairment The following attachments cannot be sent through Care Everywhere.Sleep Health: General Info (South Korean)documented in this encounter [facility] 11-27-2023 History of Present illness Narrative BMT Consult Questionnaire 1. Distance between pt's home and [facility]: >2-2 1/2 hrs 2: Animals at home: no 3. Dietary Restrictions: no 4. PCP or local oncologist: yes, Brittani Razo 5. Dentist & last cleaning: yes, [facility] 6. VA benefits: no 7. Children & ages: yes, 42 & 45 8. Interest in future children: no 9. Alcohol consumption: no 10. Tobacco use: no 11. Recreational drugs: no 12. Synagogue/cultural beliefs: no 13. Dependents: no 14. Caregiver: yes, 15. Transportation issues: no 16. Currently working: no 17. Paperwork needs: no 18. Primary Language: azerbaijani Interventions: no CHIEF COMPLAINT Wm Shea is a 73 y.o. gentleman with MDS who presents to the Hematology Transplant Clinic for initial consultation regarding role for allogeneic stem cell transplant in management of his hematologic malignancy. HISTORY OF PRESENT ILLNESS Wm Shea was initially diagnosed with MDS dating back to June 2023, when he underwent bone marrow biopsy to work-up a 3-month history of anemia for which he had received 4 units of pRBCs. When he had initially presented in March 2023 with near syncope, he was found to have some gastric bleeding (angiodysplastic lesion) on endoscopy so this was felt to be the etiology of his anemia at first. He has been following with Dr. Lewis since July 2023. He screened for [facility] in August 2023 but was ineligible due to blasts <5%. He went on to receive standard of care azacitidine. As of now, he has received 3 cycles. He followed up with Dr. Lewis after first cycle and was told he was responding well based on count recovery. BMT consult was replaced after this appointment and led to some confusion for Mr and Mrs. Shea because they understood he was doing very well and felt that transplant was a last resort. Attempts to contact him for further discussion were complicated by bad cell personal injury law specialist on the golf [place]. There were some exchanges via [employer]. They arrived to today's appointment still quite upset about the referral. Mr. Shea reports that he has continued to do well with chemotherapy treatment. He is playing golf twice a week. He feels better now on treatment than he did prior to starting. He has not required hospitalization or ED visit and denies any infections during the course of his treatment. PAST MEDICAL HISTORY Mr. Shea has a history as above. History is also positive for Past Medical History: Diagnosis Date Anemia November 2022 Arrhythmia 2009? A-fib Atrial fibrillation HTN (hypertension) Hypercholesteremia Sleep apnea PAST SURGICAL HISTORY Past Surgical History: Procedure Laterality Date HIP REPLACEMENT Bilateral SOCIAL HISTORY Social History Tobacco Use Smoking status: Never Smokeless tobacco: Never Vaping Use Vaping status: Never Used Substance Use Topics Alcohol use: Yes Alcohol/week: 3.0 standard drinks of alcohol Types: 1 Glasses of wine, 2 Cans of beer per week Comment: may not be both or even be every week Drug use: Never FAMILY HISTORY Family History Problem Relation Age of Onset Coronary Artery Disease Father Myocardial Infarction Father CURRENT MEDICATIONS Current Outpatient Medications Medication Sig Dispense Refill carveDILOL 12.5 MG tablet Take 1 tablet by mouth 2 times daily with meals. 180 tablet 3 ELDERBERRY PO Take 2 capsules by mouth as needed for Other (Cold prevention). Melatonin 5 MG Chew Tab Chew 2 tablets as needed for Other (sleep onset). Pravastatin 40 MG tablet Take 1 tablet by mouth daily. valsartan 320 MG tablet Take 0.5 tablets by mouth daily. acyclovir 800 MG tablet Take 1 tablet by mouth 2 times daily. 60 tablet 3 apixaban 5 MG tablet Take 1 tablet by mouth every 12 hours. 60 tablet 11 Fluconazole 200 MG tablet Take 2 tablets by mouth daily. 60 tablet 3 levoFLOXacin 500 MG tablet Take 1 tablet by mouth daily. Ondansetron 4 MG Tab Dispersible tablet Take 2 tablets by mouth every 8 hours as needed for Nausea / Vomiting. 30 tablet 0 No current facility-administered medications for this visit. ALLERGIES has No Known Allergies. REVIEW OF SYMPTOMS He denies fever/night sweats/chills/rigors, oral pain or dysphagia, cough/SOB, nausea, chest pain, diarrhea/constipation, rash/itching, dysuria. Weight is reported as stable. PHYSICAL EXAM VITAL SIGNS: Blood pressure 128/64, pulse 101, temperature 98.8 F (37.1 C), temperature source Oral, resp. rate 17, weight 104.3 kg (230 lb), SpO2 99%.. GENERAL: Mr. Shea was pleasant and conversational, and in no apparent distress. NEURO: Moves all 4 extremities without gross focal motor deficit. SKIN: Warm and dry with normal turgor. No rashes or lesions were appreciated. EYES: Pupils were equal, round and reactive. Sclera white. ORAL MEMBRANES: [place] and moist, with no erythema or ulcerations. NECK: Supple with no JVD. LYMPH NODES: No cervical nor supraclavicular adenopathy. LUNGS: Clear to auscultation throughout. No wheeze. No accessory muscle use. CARDIOVASCULAR: Regular rate and rhythm, no murmur. No pedal edema. ABDOMEN: Soft, non-tender, with normoactive bowel sounds x4, and no appreciable masses or hepatosplenomegaly. MUSCULOSKELETAL: No gross deformity, no joint edema. LABORATORY DATA Results for orders placed or performed in visit on 11/27/23 PRA CLASS (PRE-TRANSPLANT) Result Value Ref Range cPRA 0 0 % CLASS I SPECIFICITIES None Detected CLASS II SPECIFICITIES None Detected AB SPECIFICITY CLASS COMMENT Antibody Specificity testing performed by [employer]. cPRA calculation based on identification of HLA antibody specificities at MFI >2000 and/or presence of CREG antibodies. HLA TYPING (BMT) Result Value Ref Range Tissue Typing Will Result SEE SCANNED RESULTS HLA CONFIRMATORY TYPING Result Value Ref Range Tissue Typing Will Result SEE SCANNED RESULTS CMV IGG AB Result Value Ref Range CMV IgG Antibody Negative Negative COMPREHENSIVE METABOLIC PANEL Result Value Ref Range Sodium 138 135 - 145 mmol/L Potassium 4.7 3.5 - 5.0 mmol/L Chloride 106 98 - 108 mmol/L BUN 25 7 - 25 mg/dL Creatinine 1.04 0.70 - 1.30 mg/dL Glucose 90 70 - 99 mg/dL Bilirubin Total 0.5 <1.5 mg/dL Albumin 4.2 3.5 - 5.0 g/dL Total Protein 7.1 6.4 - 8.3 g/dL AST 26 10 - 39 U/L ALP 68 32 - 126 U/L Calcium 8.9 8.6 - 10.5 mg/dL CO2 25 21 - 31 mmol/L ALT 26 10 - 52 U/L Bun/Crea Ratio 24 Osmolality (Calculated) 294 278 - 305 mOsm/kg Anion Gap 12 7 - 17 mmol/L eGFR, CKD-EPI, Male 76 >=60 mL/min/1.73m2 TT SAMPLE Result Value Ref Range TISSUE TYPING SAMPLE Specimen Received ASSESSMENT AND PLAN Mr. Shea presents today for initial consultation regarding role for allogeneic stem cell transplant in management of his hematologic malignancy. MDS, IPSS-R intermediate risk S/p 3 cycles SOC azacitidine with Dr. Sena locally. Tolerating therapy well, still requiring pRBC transfusions. Planned for BMBx to assess response after cycle 4. 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 We discussed in depth that a good response to treatment with hypomethylating agent can be life-prolonging but will not be curative and the median duration of response is estimated at 18-24 months. We discussed typical timing for transplant in management of MDS, that it is not a last resort option and that patients must be in good health and have stable, low level disease in order to have success with transplant. For patients who begin treatment with azacitidine, I recommend proceeding to transplant after 4-6 cycles of treatment as long as blasts remain <5%. and Mrs. Shea voiced understanding after our detailed discussion about the role and rationale for transplant. At the conclusion of our visit, he was willing to complete paperwork including the BMT questionnaire and the donor demographic information. We also discussed the role of comprehensive geriatric assessment in optimizing older adult transplant candidates and that he will need to be seen in the CARE clinic to complete this assessment. He has a previous referral and will plan to schedule. In addition to the patient-specific discussion above, I also reviewed logistics of stem cell transplantation. This includes the initial phase of care consisting of 3-4 weeks in the hospital with one week of conditioning chemotherapy +/- radiation, followed by stem cell infusion, and then 2-3 weeks of aggressive supportive care. Regimen related toxicities may include nausea, vomiting, dysgeusia, mucositis, diarrhea, alopecia, fatigue, and myelosuppression necessitating blood transfusion and heightening risk for infection. Additionally, there is risk of severe infection and/or organ failure that may require life support and could cause . In order to be discharged from the hospital and the initial phase of care, recipients must be able to perform necessary activities of daily living and be showing signs of blood count recovery. In the next phase of care, recipients will be seen in the outpatient clinic at least twice weekly initially and at least once weekly until day +100 following transplant. They are required to have a full-time caregiver to assist with IADLs and to ensure adequate support and access to care in the likely event of a complication. Complications in the first 100 days include ongoing risk of opportunistic infection and organ failure, as well as the risk of graft versus host disease. Finally, we discussed the long-term risk of chronic graft versus host disease beyond the first 100 days as well as the ongoing risks of infection and relapse. Included in this discussion was review of the need for re-vaccination with childhood vaccines and prescription of prophylactic anti-microbials. I provided them with copies of Blood and Marrow Transplantation Education Guide from [facility] as well as our [facility]-specific caregiver agreement. I will plan to see him back in about 6 weeks after his response assessment marrow following cycle 4. Atrial Fibrillation Under consideration for Watchman procedure, does not wish to continue on AC long-term for his persistent a. Fib. This is certainly reasonable to pursue prior to transplant. He will need to hold aspirin when platelets <50K as will occur during transplant. NAFLD Patient reports concern for fatty liver disease noted on imaging last year. He did not undergo biopsy or further testing. Apparently also had some elevation in transaminases at the time. He cut back on alcohol intake and improved. Will plan for liver fibroscan with work-up. documented in this encounter [facility] 11-27-2023 Instructions Fifi Caro RN - 11/27/2023 4:00 PM EDT Primary Team: MD Jennifer Irving, HOT PACKER-SOCIAL WORK PROGRAM COORDINATOR Lu Dunlap, RN Fifi Caro, DAVID Cash, DAVID, [facility] Contact numbers: Clinic phone: [phone] (after hours please listen carefully and follow prompts). Clinic fax: [phone] Medication refills: Please allow 1 week for all medication refills. Prior to calling the clinic to request a refill, please check your prescription bottle for remaining refills. If you have remaining refills, please call your pharmacy. Paperwork: Please allow 2 weeks to complete paperwork (Disability, FMLA, etc). Favorite Wordshart messages: When sending messages to the provider, please know that these messages will be received and answered by the nurse or PA. Your physician will be consulted when needed. Please note, [employer] is for non-urgent messages only. If you are reporting symptoms or changes in your condition, please call the clinic at [phone]. Please call with the following: Fever > or = 100.4 or other signs or symptoms of infection Active bleeding Shortness of breath, dizziness or extreme fatigue Nausea & vomiting - unable to keep fluids or meds down Diarrhea - 3-5 watery stools/day New onset or re-occuring rash Uncontrolled pain Medication management questions Any other questions or concerns MOLD WARNING: Due to the ongoing construction around the [facility], it is important that you put on an N-95 mask before exiting your vehicle to come into the [facility]3] and before you leave the [facility]3] to return to your vehicle. This applies to all patients with a compromised immune system. Please ask for masks at your appointment when your supply at home is running low. H.O.P.E. (Helping Other through Peer Experience) Program: We have patient and/or caregiver volunteers that are trained and ready to be matched with someone who is looking for peer support. If you are a patient or caregiver who would like to provide or receive peer support, more information is available at: [email or web address]. The program can also be reached at [phone] or [email or web address]. Today's Labs: Results for orders placed or performed in visit on 11/27/23 COMPREHENSIVE METABOLIC PANEL Result Value Ref Range Sodium 138 135 - 145 mmol/L Potassium 4.7 3.5 - 5.0 mmol/L Chloride 106 98 - 108 mmol/L BUN 25 7 - 25 mg/dL Creatinine 1.04 0.70 - 1.30 mg/dL Glucose 90 70 - 99 mg/dL Bilirubin Total 0.5 <1.5 mg/dL Albumin 4.2 3.5 - 5.0 g/dL Total Protein 7.1 6.4 - 8.3 g/dL AST 26 10 - 39 U/L ALP 68 32 - 126 U/L Calcium 8.9 8.6 - 10.5 mg/dL CO2 25 21 - 31 mmol/L ALT 26 10 - 52 U/L Bun/Crea Ratio 24 Osmolality (Calculated) 294 278 - 305 mOsm/kg Anion Gap 12 7 - 17 mmol/L eGFR, CKD-EPI, Male 76 >=60 mL/min/1.73m2 documented in this encounter [facility] 10-07-2023 History of Present illness Narrative HEMATOLOGY MDS Follow up PATIENT VISIT HISTORY OF PRESENT ILLNESS Wm Shea is a 73 y.o. male with PMH of afib, FATIMAH presenting with a new diagnosis of MDS. He was first told that his hemoglobin was low (around 12) in the summer in the 2022. He had a near syncopal event in March 2023. He was admitted to the hospital with a low heart rate and he received 2 units of blood. He had a small bleed in his stomach requiring cauterization. He was on eliquis at the time. He is intermittently transfusion dependent. Since last visit, has has been doing well. He is here post C1 of azacitidine to discuss next steps and chemotherapy follow up. Bone marrow biopsy on 07/09 with hypercellular marrow (80%), myeloid hyperplasia with atypical forms, erythroid hypoplasia, megakaryocytic atypia, and 3% blasts. IPSS-R of 4 (intermediate risk). Normal FISH. Cytogenetic with 46, XY, del(12)(q13q15)[19]/48, XY[1]. Transfusion History Date Hgb Comments 04/05 6.1 Given 2u 04/07 7.9 04/08 8.1 04/15 10.4 05/20 7.6 06/05 6.7 06/06 6.3 Given 2u 06/10 9.3 06/17 8.9 06/24 7.9 07/01 8.4 07/08 7.8 07/09 -- Given 1u Since starting azacitidine he has had 2 PRBC transfusions. REVIEW OF SYSTEMS CONSTITUTIONAL: No fever, chills, change in weight or appetite. SKIN: No rash, itching, lesions, bruises, ulcers. HENT: No congestion, rhinorrhea, or sore throat. EYES: No blurry or diminished vision. CARDIOVASCULAR: No chest pain, palpitations. RESPIRATORY: No cough or shortness of breath. GASTROINTESTINAL: No nausea, vomiting, abdominal pain, diarrhea, constipation. GENITOURINARY: No dysuria, frequency, hesitancy, hematuria. MUSCULOSKELETAL: No joint pains, no decreased range of motion. NEUROLOGICAL: No dizziness or headaches, no weakness. PSYCHIATRIC: No depression, no anxiety. ALLERGY/IMMUNOLOGY: No history of environmental allergies or urticaria. ENDOCRINE: No polydipsia or polyuria, no cold/heat intolerance. HEME: No easy bruising or easy bleeding. OBJECTIVE DATA ECO Physical Exam: Gen: NAD, A&Ox4, well appearing, responds appropriately HEENT: atraumatic, normocephalic, face symmetric, EOMI, sclerae anicteric, mucous membranes moist, normal oral mucosa and dentition Resp: no visible chest wall deformities, non-labored breathing, CTAB, no wheezes/crackles/rales CV: RRR, normal S1/S2, no murmurs/rubs/gallops GI: soft, non-tender, non-distended, NABS, no rebound or guarding Ext: warm and well perfused, pulses intact, no LE edema, no clubbing or cyanosis Skin: intact, no rashes/ulcers. Scattered ecchymosis Neuro: A&Ox4, speech fluent, CN II-XII grossly intact, Psych: appropriate Body mass index is 32.12 kg/m . LABS AND IMAGING CBC Lab Results Component Value Date WBC 2.38 (L) 10/07/2023 HGB 7.7 (L) 10/07/2023 HCT 23.0 (L) 10/07/2023 PLATELET 78 (L) 10/07/2023 MCV 95.0 (H) 10/07/2023 EDIF Lab Results Component Value Date RBCDISTRIBU 18.6 (H) 10/07/2023 GRNLOCYT 46.6 10/07/2023 LYMPHOCYT 45.8 10/07/2023 MONOCYTELEC 2.5 10/07/2023 EOSINOPHILS 3.8 10/07/2023 BASOPHILS 0.0 10/07/2023 LYMPHOCYTABS 1.09 10/07/2023 EOSINOPHLABS 0.09 10/07/2023 PLATELET 78 (L) 10/07/2023 MPV 12.6 (H) 10/07/2023 Chemistry Lab Results Component Value Date ALT 15 10/07/2023 AST 18 10/07/2023 ALKPHOS 66 10/07/2023 BILITOTAL 0.6 10/07/2023 Pathology Marrow 07/09- hypercellular (80%), myeloid hyperplasia with atypical forms, erythroid hypoplasia, megakarycotyc atypia, 3% blasts Cytogenetics: 46, XY, del(12)(q13q15)[19]/48, XY[1] Normal FISH ASSESSMENT AND RECOMMENDATIONS Wm Shea is a 73 y.o. male with a PMH of atrial fibrillation who presents with a new diagnosis of MDS. He has received 5 units of blood since the end of March 2023. Reviewed bone marrow biopsy from 07/09 with dysplasia and 3% blasts. IPSS-R score of 3.5 (intermediate risk). Discussed this risk score with the patient and , and discussed trajectory and treatments of both low and high risk disease. MDS, pending risk assessment - Reviewed bone marrow from 07/09 with dysplasia, 3% blasts - Repeat BMbx on 08/10 with 2% blats, cyto with FISH pending. NGS with GATA2, SRSF2 and TET2 mutation - Unfortunately was a screen fail for [facility] A Phase I Study of SEA-CD70 in Myeloid Malignancies due to having too low of blasts - Started SOC azacitidine locally with coordination with [facility]. Discussed with him that he would need to get twice weekly labs during each cycle. -he will have a BMBx at the end of Cycle 3 and follow up with Dr. Powell team prior to starting each cylce to see how he tolerates treatment. He is already established with Dr. Sena. PCRM to reach out to his team to confirm they are able to start treatment for him - Will do a check in video visit on 11/02 after the start of Cycle 2 prior to starting next cycle ID - Discussed the use of ppx medications. Will start ppx acv, fluc and levaquin at this time. Neto obtain HSV serologies at next visit, and if negative, can discontinue Hem - Anemia 2/2 underlying disease. Transfuse to goal Hgb > 8 and plts > 20. - Hgb 7.6 today and states he feels great, will get tranfused locally tomorrow per his preference - Twice weekly labs wit the initiation of triatment Afib - Continue coreg and Eliquis - Instructed to hold Eliquis when plts < 50. Also instructed that Eliquis can be resumed when plts are self sustaining > 50. Patient and and to teach back - Follows with cardiology, currently wearing Holter. Patient would ultimately like to be able to discontinue AC if cleared by cards after Watchman procedure. HLD - continue pravastatin Hypertension - Continue valsartan. BP 131/[address] Mike Lewis Associate Clinical Professor, [facility]3] Cancer [place], [facility] documented in this encounter [facility] 10-07-2023 Instructions Ashley Ambrosio RN - 10/07/2023 11:00 AM EDT Results for orders placed or performed in visit on 10/07/23 COMPREHENSIVE METABOLIC PANEL Result Value Ref Range Sodium 139 135 - 145 mmol/L Potassium 4.6 3.5 - 5.0 mmol/L Chloride 108 98 - 108 mmol/L BUN 17 7 - 25 mg/dL Creatinine 0.98 0.70 - 1.30 mg/dL Glucose 94 70 - 99 mg/dL Bilirubin Total 0.6 <1.5 mg/dL Albumin 4.1 3.5 - 5.0 g/dL Total Protein 7.0 6.4 - 8.3 g/dL AST 18 10 - 39 U/L ALP 66 32 - 126 U/L Calcium 9.4 8.6 - 10.5 mg/dL CO2 26 21 - 31 mmol/L ALT 15 10 - 52 U/L Bun/Crea Ratio 17 Osmolality (Calculated) 293 278 - 305 mOsm/kg Anion Gap 10 7 - 17 mmol/L eGFR, CKD-EPI, Male 82 >=60 mL/min/1.73m2 CBC AND ELECTRONIC DIFF Result Value Ref Range WBC Count 2.38 (L) 3.73 - 10.10 K/uL RBC Count 2.42 (L) 4.38 - 5.83 M/uL Hemoglobin 7.7 (L) 13.4 - 16.8 g/dL Hematocrit 23.0 (L) 39.6 - 48.8 % Mean Cell Volume 95.0 (H) 79.0 - 94.5 fL Mean Cell Hgb 31.8 26.1 - 33.3 pg Mean Cell Hgb Conc 33.5 31.9 - 36.5 g/dL RBC Distribution 18.6 (H) 10.9 - 14.3 % Platelet Count 78 (L) 146 - 337 K/uL Mean Platelet Volume 12.6 (H) 8.7 - 12.3 fL DIFF STATUS Electronic Differential Segs + Bands Auto 46.6 % Immature Grans % 1.3 % Lymphocyte % Auto 45.8 % Monocyte % Auto 2.5 % Eosinophil % Auto 3.8 % Basophil % Auto 0.0 % Nucleated RBC 0.0 <=0.2 /100 WBC Segs + Bands,Absolute Auto 1.11 (L) 1.57 - 6.19 K/uL Immature Grans Absolute <0.04 <=0.07 K/uL Abs Lymph Auto 1.09 0.83 - 3.57 K/uL Abs Rowan Auto 0.06 (L) 0.24 - 0.93 K/uL Abs Eos Auto 0.09 0.00 - 0.48 K/uL Abs Baso Auto <0.04 0.00 - 0.09 K/uL documented in this encounter [facility] 10-02-2023 Evaluation + Plan note Associated Problem(s): Hyperlipidemia He appears to be doing well on his pravastatin therapy. He will continue his current dose. [facility] 10-02-2023 Evaluation + Plan note Associated Problem(s): Essential hypertension His blood pressures appear to be well controlled if not intermittently on the low side. He will continue his current medical management and monitor his vital signs at home. [facility] 10-02-2023 Evaluation + Plan note Associated Problem(s): Asymptomatic left ventricular systolic dysfunction (LVSD) He does have minimally diminished LV systolic function/LVEF. He appears to be asymptomatic at this time. He is recently adjusted his beta-seamus dose. He will be asked to have a future echocardiogram to monitor his LV systolic function/LVEF and help guide further evaluation and care. [facility] 10-02-2023 Miscellaneous Notes Associated Problem(s): Hyperlipidemia He appears to be doing well on his pravastatin therapy. He will continue his current dose. Associated Problem(s): Essential hypertension His blood pressures appear to be well controlled if not intermittently on the low side. He will continue his current medical management and monitor his vital signs at home. Associated Problem(s): Asymptomatic left ventricular systolic dysfunction (LVSD) He does have minimally diminished LV systolic function/LVEF. He appears to be asymptomatic at this time. He is recently adjusted his beta-seamus dose. He will be asked to have a future echocardiogram to monitor his LV systolic function/LVEF and help guide further evaluation and care. Associated Problem(s): PAF (paroxysmal atrial fibrillation) At the present time he will continue his rate control and his anticoagulant therapy. He has been evaluated by Dr. Swanson of electrophysiology. The tentative plan, when he is able to from his Hematology/Oncology standpoint, is to consider proceeding further with a left atrial appendage occluder device. documented in this encounter [facility] 10-02-2023 Evaluation + Plan note Associated Problem(s): PAF (paroxysmal atrial fibrillation) At the present time he will continue his rate control and his anticoagulant therapy. He has been evaluated by Dr. Swanson of electrophysiology. The tentative plan, when he is able to from his Hematology/Oncology standpoint, is to consider proceeding further with a left atrial appendage occluder device. [facility] 10-02-2023 History of Present illness Narrative Images from the original note were not included. Primary care provider: ANETTE Huynh (General) Dear Dr. Razo, I had the pleasure of seeing your patient, Wm Shea, at the [facility] at [facility] on 10/02/2023 in follow-up. I have reviewed pertinent outside medical records available at this time regarding this patient. As you recall, this 73 y.o. male is managed by our group for atrial fibrillation/flutter superimposed upon hypertension hyperlipidemia. Chief Complaint Patient presents with Follow-up 3 mo follow up - SOB on exertion HPI: Initial HPI from: 06/24/2023 This is a 73-year-old white male who presents today for a new [facility] evaluation for paroxysmal atrial fibrillation superimposed upon a history of hypertension and hyperlipidemia. He is accompanied by his spouse. He has been previously evaluated cared for by [facility] in [place], [place]. He has undergone various cardiovascular studies [...] Notes that on 04/05/2023 after watching the 8020select game, he did not feel well. There were concerns of near-syncope. He states he presented to [facility] for further evaluation. It appears that his [...] He has remained on his pravastatin therapy. Interval History: 10/02/2023 This is a 73-year-old gentleman who presents today for an outpatient cardiovascular visit based upon concerns of atrial fibrillation/flutter superimposed upon hypertension hyperlipidemia with findings based upon a recent transthoracic echocardiogram of minimally reduced LVEF. He continues to undergo evaluation and care for myelodysplastic syndrome with chemotherapy. From a cardiac standpoint he denies any ongoing concerns of chest discomfort or difficulty breathing. There has been no orthopnea, PND, peripheral pitting edema. He has had no near-syncope or syncope. He does check his vital signs at home with his home heart rate and blood pressure monitor. He states at times his heart rate appears to be regular. At other times he knows it is irregular. Thus he believes he goes in and out of his atrial dysrhythmia. He has been asked with his chemotherapy, during his treatments, to decrease his apixaban/Eliquis to once a day. He has done that. When he is not undergoing his chemotherapy treatments then he is taking it twice a day. He knows that based upon recent laboratory tests done this morning his hemoglobin is approximately 8. He states he just recently received PRBCs. His platelet count was 70,000. He was asked to increase his beta-seamus dose based upon his echocardiogram findings. He has done so. So far he appears to be tolerating it well. He does present his home heart rate and blood pressure recordings. At times his heart rate is somewhat bradycardic but not markedly so. At times his systolic blood pressures are somewhat low in the 90s but not continually so. He had an ECG in the office today. He appeared to be in an underlying coarse atrial fibrillation/atrial flutter with controlled ventricular response with a PVC. Otherwise he had no acute electrocardiographic changes. Historical information was reviewed in the medical record. The following historical elements were reviewed by a provider in the specific [facility] and updated as appropriate: No Known Allergies Outpatient Encounter Medications as of 10/02/2023 Medication Sig Dispense Refill acyclovir 800 MG tablet Take 1 tablet by mouth 2 times daily. 60 tablet 3 apixaban 5 MG tablet Take 1 tablet by mouth every 12 hours. carveDILOL 12.5 MG tablet Take 1 tablet by mouth 2 times daily with meals. 180 tablet 3 ELDERBERRY PO Take 2 capsules by mouth daily. Fluconazole 200 MG tablet Take 2 tablets by mouth daily. 60 tablet 3 Melatonin 5 MG Chew Tab Chew 2 tablets at bedtime. Pravastatin 40 MG tablet Take 1 tablet by mouth daily. valsartan 320 MG tablet Take 0.5 tablets by mouth daily. No facility-administered encounter medications on file as of 10/02/2023. Past Medical History: Diagnosis Date Anemia November 2022 Arrhythmia 2009? A-fib Atrial fibrillation HTN (hypertension) Hypercholesteremia Sleep apnea [...] Used Substance and Sexual Activity Alcohol use: Yes Alcohol/week: 3.0 standard drinks of alcohol Types: 1 Glasses of wine, 2 Cans of beer per week Comment: may not be both or even be every week Drug use: Never Sexual activity: Yes Partners: Female control/protection: None Other Topics Concern Occupational Exposure No Hobby Hazards No Social History Narrative Not on file Social [...] the vital signs are as follows: BP (P) 120/62 (BP Location: Left arm, BP Position: Sitting) Pulse 92 Ht 1.803 m (5' 11 ) Wt 103.4 kg (228 lb) BMI 31.80 kg/m Smoking Status Never Body mass index is 31.8 kg/m .. Physical Exam Vitals and nursing note reviewed. Exam conducted with a printing bindery assistant present (Spouse.). Constitutional: Appearance: Normal appearance. HENT: Head: Normocephalic and atraumatic. Cardiovascular: Rate and Rhythm: Normal rate. Rhythm irregular. No extrasystoles are present. Chest Wall: PMI [...] normal. Relevant diagnostic data includes the following: No results found for: CHOLESTEROL , TRIG , HDL , LDLCALC , LDLDIRECT , NHCHOL Lab Results Component Value Date WBC 7.43 08/20/2023 HGB 7.6 (L) 08/20/2023 HCT 23.2 (L) 08/20/2023 PLATELET 171 08/20/2023 MCV 104.0 (H) 08/20/2023 Lab Results Component Value Date SODIUM 139 08/20/2023 POTASSIUM 4.8 08/20/2023 CHLORIDE 109 (H) 08/20/2023 CO2 25 08/20/2023 BUN 24 08/20/2023 CREATSERUM 0.92 08/20/2023 GLUCOSE 110 (H) 08/20/2023 No results found for: TSH , PGQ14TDP , EOI75EMA , TSHBASELINE , TSHULTRASEN , TSHRFT4 No results found for: HGBA1C I have independently reviewed the following images/tracings: as noted below. Supplemental Information: ELECTROCARDIOGRAM 06/24/2023 [facility] ECHOCARDIOGRAM 07/29/2023 (Final) [facility] Interpretation Summary Frequent PACs/PVCs during the study. Normal left ventricular size with normal wall thickness. Mild systolic dysfunction with significant beat to beat variability, average biplane LVEF 49% GLS -17.1%. Grade I diastolic dysfunction. Mildly enlarged right ventricle with normal systolic function. Mild to moderate posteriorly directed mitral regurgitation. Otherwise no significant valvular heart disease. Mild RVSP elevation, estimated at 41 mmHg. MYOCARDIAL PERFUSION STUDY 09/04/2023 [facility] Stress myocardial perfusion scan within normal limits. No evidence of ischemia. No evidence of prior myocardial injury. Mildly reduced left ventricular systolic function (45%). The baseline rhythm was atrial fibrillation with RVR + occasional PVC's The pharmacological stress ECG is negative at the heart rate obtained. CARDIAC CATHETERIZATION 04/23/2019 [facility] In summary, Mr. Shea is managed today for the following issues: PAF (paroxysmal atrial fibrillation) At the present time he will continue his rate control and his anticoagulant therapy. He has been evaluated by Dr. Swanson of electrophysiology. The tentative plan, when he is able to from his Hematology/Oncology standpoint, is to consider proceeding further with a left atrial appendage occluder device. Asymptomatic left ventricular systolic dysfunction (LVSD) He does have minimally diminished LV systolic function/LVEF. He appears to be asymptomatic at this time. He is recently adjusted his beta-seamus dose. He will be asked to have a future echocardiogram to monitor his LV systolic function/LVEF and help guide further evaluation and care. Essential hypertension His blood pressures appear to be well controlled if not intermittently on the low side. He will continue his current medical management and monitor his vital signs at home. Hyperlipidemia He appears to be doing well on his pravastatin therapy. He will continue his current dose. I have ordered the following: Diagnoses and all orders for this visit: PAF (paroxysmal atrial fibrillation) - TN ECG ROUTINE ECG W/LEAST 12 LDS W/I&R - ECHOCARDIOGRAM LIMITED/FOLLOWUP; Future Asymptomatic left ventricular systolic dysfunction (LVSD) ECHOCARDIOGRAM LIMITED/FOLLOWUP; FUTURE Essential hypertension Hyperlipidemia, unspecified hyperlipidemia type The above was discussed with the patient with his spouse present. He was agreeable to this approach. We will plan on Return in about 3 months (around 01/02/2024).. If I can be of any further assistance, please do not hesitate to contact me. Sincerely, Jimmy Herrera MD, [facility] [employer] - Clinical Division of Cardiovascular Medicine Department of Internal Medicine [facility] Please be aware that portions of this note may have been completed with a voice recognition software system. Despite efforts to edit the note mis-transcribed words may still be present. 12 Lead EKG performed per provider's order, per policy, and given to Dr. Herrera for interpretation. Medical printing bindery assistant offered to patient prior to sensitive procedure and patient declined documented in this encounter [facility] 10-02-2023 History of Present illness Narrative Images from the original note were not included. Primary care provider: ANETTE Huynh (General) Dear Dr. Razo, I had the pleasure of seeing your patient, Wm Shea, at the [facility] at [facility] on 10/02/2023 in follow-up. I have reviewed pertinent outside medical records available at this time regarding this patient. As you recall, this 73 y.o. male is managed by our group for atrial fibrillation/flutter superimposed upon hypertension hyperlipidemia. Chief Complaint Patient presents with Follow-up 3 mo follow up - SOB on exertion HPI: Initial HPI from: 06/24/2023 This is a 73-year-old white male who presents today for a new [facility] evaluation for paroxysmal atrial fibrillation superimposed upon a history of hypertension and hyperlipidemia. He is accompanied by his spouse. He has been previously evaluated cared for by [facility] in [place], [place]. He has undergone various cardiovascular studies [...] Notes that on 04/05/2023 after watching the 8020select game, he did not feel well. There were concerns of near-syncope. He states he presented to [facility] for further evaluation. It appears that his [...] He has remained on his pravastatin therapy. Interval History: 10/02/2023 This is a 73-year-old gentleman who presents today for an outpatient cardiovascular visit based upon concerns of atrial fibrillation/flutter superimposed upon hypertension hyperlipidemia with findings based upon a recent transthoracic echocardiogram of minimally reduced LVEF. He continues to undergo evaluation and care for myelodysplastic syndrome with chemotherapy. From a cardiac standpoint he denies any ongoing concerns of chest discomfort or difficulty breathing. There has been no orthopnea, PND, peripheral pitting edema. He has had no near-syncope or syncope. He does check his vital signs at home with his home heart rate and blood pressure monitor. He states at times his heart rate appears to be regular. At other times he knows it is irregular. Thus he believes he goes in and out of his atrial dysrhythmia. He has been asked with his chemotherapy, during his treatments, to decrease his apixaban/Eliquis to once a day. He has done that. When he is not undergoing his chemotherapy treatments then he is taking it twice a day. He knows that based upon recent laboratory tests done this morning his hemoglobin is approximately 8. He states he just recently received PRBCs. His platelet count was 70,000. He was asked to increase his beta-seamus dose based upon his echocardiogram findings. He has done so. So far he appears to be tolerating it well. He does present his home heart rate and blood pressure recordings. At times his heart rate is somewhat bradycardic but not markedly so. At times his systolic blood pressures are somewhat low in the 90s but not continually so. He had an ECG in the office today. He appeared to be in an underlying coarse atrial fibrillation/atrial flutter with controlled ventricular response with a PVC. Otherwise he had no acute electrocardiographic changes. Historical information was reviewed in the medical record. The following historical elements were reviewed by a provider in the specific [facility] and updated as appropriate: No Known Allergies Outpatient Encounter Medications as of 10/02/2023 Medication Sig Dispense Refill acyclovir 800 MG tablet Take 1 tablet by mouth 2 times daily. 60 tablet 3 apixaban 5 MG tablet Take 1 tablet by mouth every 12 hours. carveDILOL 12.5 MG tablet Take 1 tablet by mouth 2 times daily with meals. 180 tablet 3 ELDERBERRY PO Take 2 capsules by mouth daily. Fluconazole 200 MG tablet Take 2 tablets by mouth daily. 60 tablet 3 Melatonin 5 MG Chew Tab Chew 2 tablets at bedtime. Pravastatin 40 MG tablet Take 1 tablet by mouth daily. valsartan 320 MG tablet Take 0.5 tablets by mouth daily. No facility-administered encounter medications on file as of 10/02/2023. Past Medical History: Diagnosis Date Anemia November 2022 Arrhythmia 2009? A-fib Atrial fibrillation HTN (hypertension) Hypercholesteremia Sleep apnea [...] Used Substance and Sexual Activity Alcohol use: Yes Alcohol/week: 3.0 standard drinks of alcohol Types: 1 Glasses of wine, 2 Cans of beer per week Comment: may not be both or even be every week Drug use: Never Sexual activity: Yes Partners: Female control/protection: None Other Topics Concern Occupational Exposure No Hobby Hazards No Social History Narrative Not on file Social [...] the vital signs are as follows: BP (P) 120/62 (BP Location: Left arm, BP Position: Sitting) Pulse 92 Ht 1.803 m (5' 11 ) Wt 103.4 kg (228 lb) BMI 31.80 kg/m Smoking Status Never Body mass index is 31.8 kg/m .. Physical Exam Vitals and nursing note reviewed. Exam conducted with a printing bindery assistant present (Spouse.). Constitutional: Appearance: Normal appearance. HENT: Head: Normocephalic and atraumatic. Cardiovascular: Rate and Rhythm: Normal rate. Rhythm irregular. No extrasystoles are present. Chest Wall: PMI [...] normal. Relevant diagnostic data includes the following: No results found for: CHOLESTEROL , TRIG , HDL , LDLCALC , LDLDIRECT , NHCHOL Lab Results Component Value Date WBC 7.43 08/20/2023 HGB 7.6 (L) 08/20/2023 HCT 23.2 (L) 08/20/2023 PLATELET 171 08/20/2023 MCV 104.0 (H) 08/20/2023 Lab Results Component Value Date SODIUM 139 08/20/2023 POTASSIUM 4.8 08/20/2023 CHLORIDE 109 (H) 08/20/2023 CO2 25 08/20/2023 BUN 24 08/20/2023 CREATSERUM 0.92 08/20/2023 GLUCOSE 110 (H) 08/20/2023 No results found for: TSH , CPZ29QKH , LYE23DXK , TSHBASELINE , TSHULTRASEN , TSHRFT4 No results found for: HGBA1C I have independently reviewed the following images/tracings: as noted below. Supplemental Information: ELECTROCARDIOGRAM 06/24/2023 [facility] ECHOCARDIOGRAM 07/29/2023 (Final) [facility] Interpretation Summary Frequent PACs/PVCs during the study. Normal left ventricular size with normal wall thickness. Mild systolic dysfunction with significant beat to beat variability, average biplane LVEF 49% GLS -17.1%. Grade I diastolic dysfunction. Mildly enlarged right ventricle with normal systolic function. Mild to moderate posteriorly directed mitral regurgitation. Otherwise no significant valvular heart disease. Mild RVSP elevation, estimated at 41 mmHg. MYOCARDIAL PERFUSION STUDY 09/04/2023 [facility] Stress myocardial perfusion scan within normal limits. No evidence of ischemia. No evidence of prior myocardial injury. Mildly reduced left ventricular systolic function (45%). The baseline rhythm was atrial fibrillation with RVR + occasional PVC's The pharmacological stress ECG is negative at the heart rate obtained. CARDIAC CATHETERIZATION 04/23/2019 [facility] In summary, Mr. Shea is managed today for the following issues: PAF (paroxysmal atrial fibrillation) At the present time he will continue his rate control and his anticoagulant therapy. He has been evaluated by Dr. Swanson of electrophysiology. The tentative plan, when he is able to from his Hematology/Oncology standpoint, is to consider proceeding further with a left atrial appendage occluder device. Asymptomatic left ventricular systolic dysfunction (LVSD) He does have minimally diminished LV systolic function/LVEF. He appears to be asymptomatic at this time. He is recently adjusted his beta-seamus dose. He will be asked to have a future echocardiogram to monitor his LV systolic function/LVEF and help guide further evaluation and care. Essential hypertension His blood pressures appear to be well controlled if not intermittently on the low side. He will continue his current medical management and monitor his vital signs at home. Hyperlipidemia He appears to be doing well on his pravastatin therapy. He will continue his current dose. I have ordered the following: Diagnoses and all orders for this visit: PAF (paroxysmal atrial fibrillation) - TN ECG ROUTINE ECG W/LEAST 12 LDS W/I&R - ECHOCARDIOGRAM LIMITED/FOLLOWUP; Future Asymptomatic left ventricular systolic dysfunction (LVSD) ECHOCARDIOGRAM LIMITED/FOLLOWUP; FUTURE Essential hypertension Hyperlipidemia, unspecified hyperlipidemia type The above was discussed with the patient with his spouse present. He was agreeable to this approach. We will plan on Return in about 3 months (around 01/02/2024).. If I can be of any further assistance, please do not hesitate to contact me. Sincerely, Jimmy Herrera MD, [facility] [employer] - Clinical Division of Cardiovascular Medicine Department of Internal Medicine [facility] Please be aware that portions of this note may have been completed with a voice recognition software system. Despite efforts to edit the note mis-transcribed words may still be present. 12 Lead EKG performed per provider's order, per policy, and given to Dr. Herrera for interpretation. Medical printing bindery assistant offered to patient prior to sensitive procedure and patient declined documented in this encounter [facility] 09-04-2023 History of Present illness Narrative Caffeine free for 12 hours. status na status na Pharmacologic nuclear stress procedure explained to patient. Risk/benefits of the procedure were reviewed and patient verbalized understanding. Medical printing bindery assistant offered to patient prior to sensitive procedure and patient declined. Patient was administered a Lexiscan injection during the procedure, per the Physician's order. Patient was instructed prior to the test of the possible side effects of the medication. After the injection was administered, the patient did experience feeling odd and lightheadedness. In recovery the patient's symptoms subsided and vital signs returned to baseline. Patient tolerated procedure well. Patient was instructed to call 911 if they experience any chest pain, shortness of breath or other anginal equivalent more intense and/or frequent than before today's testing. Patient was ambulatory upon discharge from the clinic. documented in this encounter [facility] 09-04-2023 Hospital Discharge instructions Chantale Spivey RN - 09/04/2023 8:15 AM EDT Post exercise patient instructions: It is normal to feel fatigued the afternoon and evening after an exercise test. You are free to resume normal activity after testing. However, you should refrain from exercise or other intense activity until you are cleared by your referring physician. Drinking at least 1-2 cups of water and stretching your leg muscles in the evening after testing is recommended. These steps will help clear lactic acid from the muscles, reduce leg cramps, and minimize muscle soreness which are possible after exercise stress testing. Resume taking your normal medications as prescribed or instructed after testing. After the completion of your nuclear test at the [facility] [place] you should be aware of the following information: Other than mild fatigue and muscle soreness, there are no residual symptoms or physiological effects associated with this nuclear study. If you should feel different than normal after the test, please contact the physician who scheduled the exam. If you think this is an emergency, either dial 911 or go to the nearest emergency room. Your testing was supervised by Dr. So today. A qualified and licensed [facility] llama farmer will interpret your study and a final report of the results will be forwarded to your physician within 24 hours. You will get the results of your test directly from the ordering physician or a physician on your care team. The technologist performing your exam will not give you final results. You have been administered a low dose of radioactive material that will be in your system for about three days. This amount is approximately 5% of the limit that would require modification to your daily activities. Because of this minimal activity, there are no restrictions with regards to exposure to other individuals, traveling, personal hygiene, or any other routine activity. If you are or , however, there are restrictions. Please notify the technologist if this is the case. (Reference: [id number], Volume 9, Revision 2, Appendix U). If you have any questions or concerns regarding your exam, please call the [place] office at [phone], Friday through Friday, between the hours of 8:00 AM and 5:00 PM. For medical emergencies, please call 911 or go to your nearest emergency room. ? To Whom It May Concern: Our patient, Wm Shea, was seen at The [facility] [place] on 09/04/23 for a nuclear test of the heart. During the course of this myocardial perfusion imaging study, our patient received a radioactive isotope, technetium (Tc-99m). Tc-99m emits gamma radiation with an energy of 140 [place] and has a six hour half life. For this study, our patient received approximately 40 mCi of Tc-99m Cardiolite. The administered radioactivity will be below background levels within three days from the conclusion of the test. In the meantime, our patient may be detected as radioactive due to this study. If you have any further questions, please contact our staff at [phone], Friday through Friday, between the hours of 8:00 AM and 5:00 PM. ? Thank you, Marcellus So, [facility] Program Planner and RSO [facility] [address] [address] ? ? documented in this encounter [facility] 08-27-2023 Note Request received for second opinion consultation by Eileen Echols, SKYLER-FRANCISCO. New patient of Dr. Lewis's, please review OS BMBx slides. Preoperative Diagnosis: Macrocytic anemia, ? MDS. [facility] Comment on above: Performed By: #### X M, ABORH #### [facility] (DEFAULT) [address] [place] [address] 08-20-2023 History of Present illness Narrative HEMATOLOGY NEW PATIENT VISIT HISTORY OF PRESENT ILLNESS Wm Shea is a 73 y.o. male with PMH of afib, FATIMAH presenting with a new diagnosis of MDS. He was first told that his hemoglobin was low (around 12) in the summer in the 2022. He had a near syncopal event in March 2023. He was admitted to the hospital with a low heart rate and he received 2 units of blood. He had a small bleed in his stomach requiring cauterization. He was on eliquis at the time. He is intermittently transfusion dependent. Since last visit, has has been doing well. He is here today to discuss his BMbx results and treatment options. Bone marrow biopsy on 07/09 with hypercellular marrow (80%), myeloid hyperplasia with atypical forms, erythroid hypoplasia, megakaryocytic atypia, and 3% blasts. IPSS-R of 4 (intermediate risk). Normal FISH. Cytogenetic with 46, XY, del(12)(q13q15)[19]/48, XY[1]. Transfusion History Date Hgb Comments 04/05 6.1 Given 2u 04/07 7.9 04/08 8.1 04/15 10.4 05/20 7.6 06/05 6.7 06/06 6.3 Given 2u 06/10 9.3 06/17 8.9 06/24 7.9 07/01 8.4 07/08 7.8 07/09 -- Given 1u REVIEW OF SYSTEMS CONSTITUTIONAL: No fever, chills, change in weight or appetite. SKIN: No rash, itching, lesions, bruises, ulcers. HENT: No congestion, rhinorrhea, or sore throat. EYES: No blurry or diminished vision. CARDIOVASCULAR: No chest pain, palpitations. RESPIRATORY: No cough or shortness of breath. GASTROINTESTINAL: No nausea, vomiting, abdominal pain, diarrhea, constipation. GENITOURINARY: No dysuria, frequency, hesitancy, hematuria. MUSCULOSKELETAL: No joint pains, no decreased range of motion. NEUROLOGICAL: No dizziness or headaches, no weakness. PSYCHIATRIC: No depression, no anxiety. ALLERGY/IMMUNOLOGY: No history of environmental allergies or urticaria. ENDOCRINE: No polydipsia or polyuria, no cold/heat intolerance. HEME: No easy bruising or easy bleeding. OBJECTIVE DATA ECO Restricted in physically strenuous activity but ambulatory and able to carry out work of a light or sedentary nature, e.g., light house work, office work Physical Exam: Gen: NAD, A&Ox4, well appearing, responds appropriately HEENT: atraumatic, normocephalic, face symmetric, EOMI, sclerae anicteric, mucous membranes moist, normal oral mucosa and dentition Resp: no visible chest wall deformities, non-labored breathing, CTAB, no wheezes/crackles/rales CV: RRR, normal S1/S2, no murmurs/rubs/gallops GI: soft, non-tender, non-distended, NABS, no rebound or guarding Ext: warm and well perfused, pulses intact, no LE edema, no clubbing or cyanosis Skin: intact, no rashes/ulcers. Scattered ecchymosis Neuro: A&Ox4, speech fluent, CN II-XII grossly intact, Psych: appropriate Body mass index is 33.5 kg/m . LABS AND IMAGING CBC Lab Results Component Value Date WBC 7.43 08/20/2023 HGB 7.6 (L) 08/20/2023 HCT 23.2 (L) 08/20/2023 PLATELET 171 08/20/2023 MCV 104.0 (H) 08/20/2023 EDIF Lab Results Component Value Date RBCDISTRIBU 22.3 (H) 08/20/2023 EOSINOPHILS 7.1 08/20/2023 BASOPHILS 0.9 08/20/2023 LYMPHOCYTABS 2.30 08/20/2023 EOSINOPHLABS 0.53 (H) 08/20/2023 PLATELET 171 08/20/2023 MPV 12.0 08/20/2023 Chemistry Lab Results Component Value Date ALT 24 08/20/2023 AST 24 08/20/2023 ALKPHOS 62 08/20/2023 BILITOTAL 0.6 08/20/2023 Pathology Marrow 07/09- hypercellular (80%), myeloid hyperplasia with atypical forms, erythroid hypoplasia, megakarycotyc atypia, 3% blasts Cytogenetics: 46, XY, del(12)(q13q15)[19]/48, XY[1] Normal FISH ASSESSMENT AND RECOMMENDATIONS Wm Shea is a 73 y.o. male with a PMH of atrial fibrillation who presents with a new diagnosis of MDS. He has received 5 units of blood since the end of March 2023. Reviewed bone marrow biopsy from 07/09 with dysplasia and 3% blasts. IPSS-R score of 3.5 (intermediate risk). Discussed this risk score with the patient and , and discussed trajectory and treatments of both low and high risk disease. MDS, pending risk assessment - Reviewed bone marrow from 07/09 with dysplasia, 3% blasts - Repeat BMbx on 08/10 with 2% blats, cyto with FISH pending. NGS with GATA2, SRSF2 and TET2 mutation - Unfortunately was a screen fail for [facility] A Phase I Study of SEA-CD70 in Myeloid Malignancies due to having too low of blasts - Will proceed with getting SOC azacitidine locally with coordination with [facility]. Discussed with him that he would need to get twice weekly labs during each cycle. -he will have a BMBx at the end of Cycle 2 and follow up with Dr. Woo team prior to starting each cylce to see how he tolerates treatment. He is already established with Dr. Sena. [facility] to reach out to his team to confirm they are able to start treatment for him - Will return to clinic to see Dr. Lewis ~4 weeks after the start of Cycle 1 locally so can be cleared to start the next cycle ID - Discussed the use of ppx medications. Will start ppx acv, fluc and levaquin at this time. Neto obtain HSV serologies at next visit, and if negative, can discontinue Hem - Anemia 2/2 underlying disease. Transfuse to goal Hgb > 8 and plts > 20. - Hgb 7.6 today and states he feels great, will get tranfused locally tomorrow per his preference - Twice weekly labs wit the initiation of triatment Afib - Continue coreg and Eliquis - Instructed to hold Eliquis when plts < 50. Also instructed that Eliquis can be resumed when plts are self sustaining > 50. Patient and and to teach back - Follows with cardiology, currently wearing Holter. Patient would ultimately like to be able to discontinue AC if cleared by cards HLD - continue pravastatin Hypertension - Continue valsartan. BP 131/61 in clinic today Eileen Echols APRN-FRANCISCO Pager #[phone] Hg 7.6 today. Pt wishes to have transfusion at [place], closer to home. [place] to be faxed to Ivelisse Sosa ,[place] aware. BENJAMIN Keating to assist. documented in this encounter [facility] 08-20-2023 Instructions Chanel Castillo RN - 08/20/2023 11:00 AM EDT Results for orders placed or performed in visit on 08/20/23 COMPREHENSIVE METABOLIC PANEL Result Value Ref Range Sodium 139 135 - 145 mmol/L Potassium 4.8 3.5 - 5.0 mmol/L Chloride 109 (H) 98 - 108 mmol/L BUN 24 7 - 25 mg/dL Creatinine 0.92 0.70 - 1.30 mg/dL Glucose 110 (H) 70 - 99 mg/dL Bilirubin Total 0.6 <1.5 mg/dL Albumin 4.4 3.5 - 5.0 g/dL Total Protein 7.1 6.4 - 8.3 g/dL AST 24 10 - 39 U/L ALP 62 32 - 126 U/L Calcium 9.1 8.6 - 10.5 mg/dL CO2 25 21 - 31 mmol/L ALT 24 10 - 52 U/L Bun/Crea Ratio 26 Osmolality (Calculated) 297 278 - 305 mOsm/kg Anion Gap 10 7 - 17 mmol/L eGFR, CKD-EPI, Male 88 >=60 mL/min/1.73m2 CBC AND ELECTRONIC DIFF Result Value Ref Range WBC Count 7.43 3.73 - 10.10 K/uL RBC Count 2.23 (L) 4.38 - 5.83 M/uL Hemoglobin 7.6 (L) 13.4 - 16.8 g/dL Hematocrit 23.2 (L) 39.6 - 48.8 % Mean Cell Volume 104.0 (H) 79.0 - 94.5 fL Mean Cell Hgb 34.1 (H) 26.1 - 33.3 pg Mean Cell Hgb Conc 32.8 31.9 - 36.5 g/dL RBC Distribution 22.3 (H) 10.9 - 14.3 % Platelet Count 171 146 - 337 K/uL Mean Platelet Volume 12.0 8.7 - 12.3 fL Segs + Bands Auto Immature Grans % Lymphocyte % Auto Monocyte % Auto Eosinophil % Auto Basophil % Auto Segs + Bands,Absolute Auto Immature Grans Absolute Abs Lymph Auto Abs Rowan Auto Abs Eos Auto Abs Baso Auto MANUAL DIFF Result Value Ref Range DIFF STATUS Manual Differential Bands Relative 0.0 % Segs Relative 45.0 % Lymph Relative 31.0 % Rowan Relative 0.9 % Eos Relative 7.1 % Baso Relative 0.9 % Myelocyte Relative 11.5 % Promyelocyte Relative 1.8 % Blast Relative 1.8 (H) <=0.0 % Segs & Bands, Absolute 3.34 1.57 - 6.19 K/uL Abs Lymph Manual 2.30 0.83 - 3.57 K/uL Abs Rowan Manual 0.07 (L) 0.24 - 0.93 K/uL Abs Eos Manual 0.53 (H) 0.00 - 0.48 K\uL Abs Baso Manual 0.07 0.00 - 0.09 K/uL Abs Myelo Manual 0.85 (H) <=0.07 K/uL Abs Promyelo Manual 0.13 (H) <=0.07 K/uL Abs Blast Manual 0.13 (H) <=0.00 K/uL RBC Morphology RBC INDICES CONFIRMED WITH MANUAL SLIDE REVIEW Platelet Estimate Automated platelet count confirmed by manual slide review documented in this encounter [facility] 08-11-2023 Note BERYL Ayers 08/11/2023 12:07 PM IR PROCEDURE NOTE- Bone Marrow Aspiration and Biopsy- Right/Unilateral PROCEDURE PERFORMED BY: BERYL Ayers Assisted by: ADA Byers, Vivi Lee RN and Emanuel Henderson CNP PROCEDURE PERFORMED: right Bone Marrow Biopsy with Aspiration. LOCATION: In IRAP on 4th floor of [facility] outpatient PREOPERATIVE DIAGNOSIS(ES): MDS (myelodysplastic syndrome) [D46.9] POSTOPERATIVE DIAGNOSIS(ES): MDS (myelodysplastic syndrome) [D46.9] PROCEDURE DETAILS, FINDINGS AND PLAN: INDICATIONS FOR PROCEDURE: evaluation of disease ANESTHESIA: Lidocaine 2% 10 ml given. PREMEDICATION: None UNIVERSAL PROTOCOL REQUIRED: Yes PROCEDURE DETAILS: I reviewed and obtained consent with the patient for a right bone marrow biopsy procedure. Once the consent was reviewed and signed, the patient was not premedicated. Immediately prior to the procedure a time out and universal protocol was performed at the bedside. The patient placed in prone position and the right posterior superior iliac crest was prepped and draped in a sterile fashion. The right iliac crest site including skin, subcutaneous tissue, and periosteum were anesthetized using 10 ml of 2% lidocaine. The 4in Oncontrol needle was used to obtain bone marrow aspirate and positive spicules were noted. The core biopsy was then obtained with the 4in Oncontrol needle. The specimens were processed according to the orders: surgical pathology, bone marrow basics, immunophenotyping, cytogenetics, hematologic neoplasm mutation panel and there is research. The site was covered with a dry sterile pressure dressing and pressure was applied for 20 minutes as the pt was instructed to lie supine. No complications were noted and the patient tolerated the procedure well without complaints during or after the procedure. SPECIMEN(S) REMOVED: 16 mL aspirate with clot biopsy and 1 cm core biopsy FINDINGS: pending cyto, pathology, immunophenotyping, bone marrow basic, hematologic neoplasm mutation panel and research DISPOSITION OF SPECIMEN(S): to lab and paged [phone] for research pick @[id number] STUDY SAMPLES: Trial number: [id number] Patient ID: TBD Trial Coordinator Contact Information: Jimmie Blackwell Ph: [phone] Bone Marrow Aspirate: 1 x 4mL Green NaHep 1 x 3mL Lav EDTA CONDITION: stable COMPLICATIONS: none Estimated blood loss: <5mL Results: Pending PLAN: Procedure site added to LDA for assessment. RN to reassess 20-45 minutes post procedure and document in corresponding LDA. The patient was sent home and post procedural instructions were given. Pt instructed to keep dressing in place and dry for 24 hours if possible. All questions were answered. The patient will follow up with referring team. Thank you for allowing Interventional Radiology to participate in this patient's care. [facility] 08-11-2023 Note BERYL Ayers 08/11/2023 12:07 PM IR PROCEDURE NOTE- Bone Marrow Aspiration and Biopsy- Right/Unilateral PROCEDURE PERFORMED BY: BERYL Ayers Assisted by: ADA Byers, Vivi Lee RN and Emanuel Henderson CNP PROCEDURE PERFORMED: right Bone Marrow Biopsy with Aspiration. LOCATION: In IRAP on 4th floor of [facility] outpatient PREOPERATIVE DIAGNOSIS(ES): MDS (myelodysplastic syndrome) [D46.9] POSTOPERATIVE DIAGNOSIS(ES): MDS (myelodysplastic syndrome) [D46.9] PROCEDURE DETAILS, FINDINGS AND PLAN: INDICATIONS FOR PROCEDURE: evaluation of disease ANESTHESIA: Lidocaine 2% 10 ml given. PREMEDICATION: None UNIVERSAL PROTOCOL REQUIRED: Yes PROCEDURE DETAILS: I reviewed and obtained consent with the patient for a right bone marrow biopsy procedure. Once the consent was reviewed and signed, the patient was not premedicated. Immediately prior to the procedure a time out and universal protocol was performed at the bedside. The patient placed in prone position and the right posterior superior iliac crest was prepped and draped in a sterile fashion. The right iliac crest site including skin, subcutaneous tissue, and periosteum were anesthetized using 10 ml of 2% lidocaine. The 4in Oncontrol needle was used to obtain bone marrow aspirate and positive spicules were noted. The core biopsy was then obtained with the 4in Oncontrol needle. The specimens were processed according to the orders: surgical pathology, bone marrow basics, immunophenotyping, cytogenetics, hematologic neoplasm mutation panel and there is research. The site was covered with a dry sterile pressure dressing and pressure was applied for 20 minutes as the pt was instructed to lie supine. No complications were noted and the patient tolerated the procedure well without complaints during or after the procedure. SPECIMEN(S) REMOVED: 16 mL aspirate with clot biopsy and 1 cm core biopsy FINDINGS: pending cyto, pathology, immunophenotyping, bone marrow basic, hematologic neoplasm mutation panel and research DISPOSITION OF SPECIMEN(S): to lab and paged [phone] for research cesar @[phone] STUDY SAMPLES: Trial number: [id number] Patient ID: TBD Trial Coordinator Contact Information: Jimmie Blackwell Ph: [phone] Bone Marrow Aspirate: 1 x 4mL Green NaHep 1 x 3mL Lav EDTA CONDITION: stable COMPLICATIONS: none Estimated blood loss: <5mL Results: Pending PLAN: Procedure site added to LDA for assessment. RN to reassess 20-45 minutes post procedure and document in corresponding LDA. The patient was sent home and post procedural instructions were given. Pt instructed to keep dressing in place and dry for 24 hours if possible. All questions were answered. The patient will follow up with referring team. Thank you for allowing Interventional Radiology to participate in this patient's care. [facility] 08-11-2023 Procedure note Associated Ord er(s): BONE MARROW ASPIRATE AND BIOPSY IR PROCEDURE NOTE- Bone Marrow Aspiration and Biopsy- Right/Unilateral PROCEDURE PERFORMED BY: BERYL Ayers Assisted by: ADA Byers, Vivi Lee RN and Emanuel Henderson CNP PROCEDURE PERFORMED: right Bone Marrow Biopsy with Aspiration. LOCATION: In IRAP on 4th floor of [facility] outpatient PREOPERATIVE DIAGNOSIS(ES): MDS (myelodysplastic syndrome) [D46.9] POSTOPERATIVE DIAGNOSIS(ES): MDS (myelodysplastic syndrome) [D46.9] PROCEDURE DETAILS, FINDINGS AND PLAN: INDICATIONS FOR PROCEDURE: evaluation of disease ANESTHESIA: Lidocaine 2% 10 ml given. PREMEDICATION: None UNIVERSAL PROTOCOL REQUIRED: Yes PROCEDURE DETAILS: I reviewed and obtained consent with the patient for a right bone marrow biopsy procedure. Once the consent was reviewed and signed, the patient was not premedicated. Immediately prior to the procedure a time out and universal protocol was performed at the bedside. The patient placed in prone position and the right posterior superior iliac crest was prepped and draped in a sterile fashion. The right iliac crest site including skin, subcutaneous tissue, and periosteum were anesthetized using 10 ml of 2% lidocaine. The [employer] needle was used to obtain bone marrow aspirate and positive spicules were noted. The core biopsy was then obtained with the 4in Oncontrol needle. The specimens were processed according to the orders: surgical pathology, bone marrow basics, immunophenotyping, cytogenetics, hematologic neoplasm mutation panel and there is research. The site was covered with a dry sterile pressure dressing and pressure was applied for 20 minutes as the pt was instructed to lie supine. No complications were noted and the patient tolerated the procedure well without complaints during or after the procedure. SPECIMEN(S) REMOVED: 16 mL aspirate with clot biopsy and 1 cm core biopsy FINDINGS: pending cyto, pathology, immunophenotyping, bone marrow basic, hematologic neoplasm mutation panel and research DISPOSITION OF SPECIMEN(S): to lab and paged [phone] for research pick @6900 STUDY SAMPLES: Trial number: [id number] Patient ID: TBD Trial Coordinator Contact Information: Jimmie Blackwell Ph: [phone] Bone Marrow Aspirate: 1 x 4mL Green NaHep 1 x 3mL Lav EDTA CONDITION: stable COMPLICATIONS: none Estimated blood loss: <5mL Results: Pending PLAN: Procedure site added to LDA for assessment. RN to reassess 20-45 minutes post procedure and document in corresponding LDA. The patient was sent home and post procedural instructions were given. Pt instructed to keep dressing in place and dry for 24 hours if possible. All questions were answered. The patient will follow up with referring team. Thank you for allowing Interventional Radiology to participate in this patient's care. [facility] Work Phone: 08-11-2023 Procedure note Associated Ord er(s): BONE MARROW ASPIRATE AND BIOPSY IR PROCEDURE NOTE- Bone Marrow Aspiration and Biopsy- Right/Unilateral PROCEDURE PERFORMED BY: BERYL Ayers Assisted by: ADA Byers, Vivi Lee RN and Emanuel Henderson CNP PROCEDURE PERFORMED: right Bone Marrow Biopsy with Aspiration. LOCATION: In IRAP on 4th floor of [facility] outpatient PREOPERATIVE DIAGNOSIS(ES): MDS (myelodysplastic syndrome) [D46.9] POSTOPERATIVE DIAGNOSIS(ES): MDS (myelodysplastic syndrome) [D46.9] PROCEDURE DETAILS, FINDINGS AND PLAN: INDICATIONS FOR PROCEDURE: evaluation of disease ANESTHESIA: Lidocaine 2% 10 ml given. PREMEDICATION: None UNIVERSAL PROTOCOL REQUIRED: Yes PROCEDURE DETAILS: I reviewed and obtained consent with the patient for a right bone marrow biopsy procedure. Once the consent was reviewed and signed, the patient was not premedicated. Immediately prior to the procedure a time out and universal protocol was performed at the bedside. The patient placed in prone position and the right posterior superior iliac crest was prepped and draped in a sterile fashion. The right iliac crest site including skin, subcutaneous tissue, and periosteum were anesthetized using 10 ml of 2% lidocaine. The 4in Oncontrol needle was used to obtain bone marrow aspirate and positive spicules were noted. The core biopsy was then obtained with the 4in Oncontrol needle. The specimens were processed according to the orders: surgical pathology, bone marrow basics, immunophenotyping, cytogenetics, hematologic neoplasm mutation panel and there is research. The site was covered with a dry sterile pressure dressing and pressure was applied for 20 minutes as the pt was instructed to lie supine. No complications were noted and the patient tolerated the procedure well without complaints during or after the procedure. SPECIMEN(S) REMOVED: 16 mL aspirate with clot biopsy and 1 cm core biopsy FINDINGS: pending cyto, pathology, immunophenotyping, bone marrow basic, hematologic neoplasm mutation panel and research DISPOSITION OF SPECIMEN(S): to lab and paged [phone] for research pick @[id number] STUDY SAMPLES: Trial number: [id number] Patient ID: [id number] Trial Coordinator Contact Information: Jimmie Blackwell Ph: [phone] Bone Marrow Aspirate: 1 x 4mL Green NaHep 1 x 3mL Lav EDTA CONDITION: stable COMPLICATIONS: none Estimated blood loss: <5mL Results: Pending PLAN: Procedure site added to LDA for assessment. RN to reassess 20-45 minutes post procedure and document in corresponding LDA. The patient was sent home and post procedural instructions were given. Pt instructed to keep dressing in place and dry for 24 hours if possible. All questions were answered. The patient will follow up with referring team. Thank you for allowing Interventional Radiology to participate in this patient's care. documented in this encounter [facility] 08-11-2023 Nurse Note IR procedure of right bone marrow biopsy performed at the bedside per IR [facility] Hima Iraheta PAC with Vipul Henderson CNP . Pt tolerated well with local numbing agent. A pressure dressing was applied to the site and patient instructed to lie supine with pressure on site for 20 minutes following procedure. LDA added for procedural site assessment. ACC RN will check site and document reassessment 20-45 minutes after procedure is completed in corresponding LDA. Keep dressing in place and dry for 24 hours if possible. Post procedure education performed at bedside. Will discharge pt to home with AVS given and all questions answered. [facility] 08-11-2023 Miscellaneous Notes IR procedure of right bone marrow biopsy performed at the bedside per IR [facility] Hima Iraheta PAC with Vipul Henderson CNP . Pt tolerated well with local numbing agent. A pressure dressing was applied to the site and patient instructed to lie supine with pressure on site for 20 minutes following procedure. LDA added for procedural site assessment. ACC RN will check site and document reassessment 20-45 minutes after procedure is completed in corresponding LDA. Keep dressing in place and dry for 24 hours if possible. Post procedure education performed at bedside. Will discharge pt to home with AVS given and all questions answered. H&P Procedure Update: I have examined the patient and reviewed the previous H&P (08/04/2023) and verify there aren't relevant updates. (Not in an outpatient encounter) No Known Allergies Consent to be signed and operative site(s) confirmed with the patient. documented in this encounter [facility] 08-11-2023 Hospital Discharge instructions Vivi Lee RN - 08/11/2023 10:00 AM EDT Images from the original note were not included. Bone Marrow Aspiration and Biopsy Bone marrow is the soft, spongy part inside bones. It makes most of the body s blood cells. Aspiration and biopsy are procedures done to take a sample of bone marrow out of the body for examination. To perform either procedure, a needle is inserted into one of your bones, usually the back of the hip bone. Then a sample of bone marrow is removed. . Why the procedures are done The procedures may be done for a number of reasons. They can help diagnose certain blood or bone marrow disorders or infections. They may help find certain cancers, such as leukemia. They can show if cancer in other areas of the body has spread to the bone marrow. They can be used during cancer treatment, such as chemotherapy, to monitor treatment progress. And they may be done before certain treatments, such as a stem cell transplant, which require a bone marrow sample. Your healthcare provider will explain why you need the procedure and answer any questions you have. The day of the procedure The procedures can be done at a hospital, clinic, or healthcare provider s office. They are performed by a healthcare provider or trained healthcare provider. Whether you re having one or both procedures, plan to be at the facility for 1 to 2 hours. You ll likely go home the same day. Before the procedure begins What to expect before the procedure: An IV line may be put into a vein in your arm or hand to provide medication. You may request pre-medications that will help you relax, if needed. When the procedure is complete,the site is bandaged, and pressure is applied to the site by lying on it for approximately 20 minutes to help stop bleeding. After the Procedure Most people can go home after a short period of observation. If you were given any premedications, an adult family member or friend must drive you home afterward. Site care and Recovering at home Avoid getting the procedure site wet. WAIT 24 HOURS BEFORE SHOWERING. REMOVE DRESSING AND SHOWER USUAL. PAT SITE DRY GENTLY AND COVER WITH BAND-AID IF SMALL ENTRANCE SITE IS NOT COMPLETELY CLOSED. DO NOT TAKE BATHS, SOAK IN HOT TUB, SWIM IN SONG OR POOLS FOR 72 HOURS FROM TODAY. If you wish, you may wash with a sponge or washcloth until your 24 hours are up. Take all medicines as directed. Care for the procedure site as instructed. Check for signs of infection at the procedure site (see below). Avoid heavy lifting and other strenuous activities for the next 24 hours.. Call the healthcare provider that ordered the procedure to report any of these signs or symptoms of infection: Fever of 100.4 F (38 C) or higher, or as directed by your healthcare provider Signs of infection at the procedure site, such as increased redness or swelling, warmth, worsening pain, bleeding, or foul-smelling drainage Bleeding through the dressing that continues in spite of reapplying pressure to the area for 30 minutes Follow-up Your healthcare provider will discuss the results with you when they are ready. This is usually within a week after the procedure. Risks and possible complications of these procedures These include: Severe bleeding or bruising at the procedure site Infection at the procedure site Bone fracture Bone infection Date Last Reviewed: 02/16/201519992281-2358 [employer]. [address] [place] [address]. All rights reserved. This information is not intended as a substitute for professional medical care. Always follow your healthcare professional's instructions. documented in this encounter [facility] 08-11-2023 Plan of care note H&P Procedure Update: I have examined the patient and reviewed the previous H&P (08/04/2023) and verify there aren't relevant updates. (Not in an outpatient encounter) No Known Allergies Consent to be signed and operative site(s) confirmed with the patient. [facility] 08-11-2023 History of Present illness Narrative Wm Shea in clinic for trial consent/screening. Denies complaint today. Request prbc trasnfusion set up in [place] if needed. 10:01 AM consent [id number] Dr sarah sosa [facility] [id number] ph:[phone] fax :[phone] BM Biopsy Checklist Please complete by answering yes, no or n/a IV access present (Will patient require IV premeds)? Pt declined Labs (CBC w/ diff reviewed) - pending Platelet transfusion required? pending Check w/ [facility] SOCIAL WORK PROGRAM COORDINATOR re: desired Plt count Has the patient held anti-coagulation (if applicable) na Ask/verify if patient is on Research trial [id number] SOCIAL WORK PROGRAM COORDINATOR evaluation/ BM bx orders placed thai emanuel Handoff RN to ACC certified detention deputy ([phone]) (Please relay if patient on research trial, premeds needed & if IV access present) Name of individual report given to: Marta @[phone] HEMATOLOGY NEW PATIENT VISIT HISTORY OF PRESENT ILLNESS Wm Shea is a 73 y.o. male with PMH of afib, FATIMAH presenting with a new diagnosis of MDS. He was first told that his hemoglobin was low (around 12) in the summer in the 2022. He had a near syncopal event in March 2023. He was admitted to the hospital with a low heart rate and he received 2 units of blood. He had a small bleed in his stomach requiring cauterization. He was on eliquis at the time. He is intermittently transfusion dependent. Since last visit, has has been doing well. No recent infections. No night sweats. Weight has been stable. Today we discussed clinical research trial options. Bone marrow biopsy on 07/09 with hypercellular marrow (80%), myeloid hyperplasia with atypical forms, erythroid hypoplasia, megakaryocytic atypia, and 3% blasts. IPSS-R of 4 (intermediate risk). Normal FISH. Cytogenetic with 46, XY, del(12)(q13q15)[19]/48, XY[1]. Transfusion History Date Hgb Comments 04/05 6.1 Given 2u 04/07 7.9 04/08 8.1 04/15 10.4 05/20 7.6 06/05 6.7 06/06 6.3 Given 2u 06/10 9.3 06/17 8.9 06/24 7.9 07/01 8.4 07/08 7.8 07/09 -- Given 1u REVIEW OF SYSTEMS CONSTITUTIONAL: No fever, chills, change in weight or appetite. SKIN: No rash, itching, lesions, bruises, ulcers. HENT: No congestion, rhinorrhea, or sore throat. EYES: No blurry or diminished vision. CARDIOVASCULAR: No chest pain, palpitations. RESPIRATORY: No cough or shortness of breath. GASTROINTESTINAL: No nausea, vomiting, abdominal pain, diarrhea, constipation. GENITOURINARY: No dysuria, frequency, hesitancy, hematuria. MUSCULOSKELETAL: No joint pains, no decreased range of motion. NEUROLOGICAL: No dizziness or headaches, no weakness. PSYCHIATRIC: No depression, no anxiety. ALLERGY/IMMUNOLOGY: No history of environmental allergies or urticaria. ENDOCRINE: No polydipsia or polyuria, no cold/heat intolerance. HEME: No easy bruising or easy bleeding. OBJECTIVE DATA ECO Restricted in physically strenuous activity but ambulatory and able to carry out work of a light or sedentary nature, e.g., light house work, office work Physical Exam: Gen: NAD, A&Ox4, well appearing, responds appropriately HEENT: atraumatic, normocephalic, face symmetric, EOMI, sclerae anicteric, mucous membranes moist, normal oral mucosa and dentition Resp: no visible chest wall deformities, non-labored breathing, CTAB, no wheezes/crackles/rales CV: RRR, normal S1/S2, no murmurs/rubs/gallops GI: soft, non-tender, non-distended, NABS, no rebound or guarding Ext: warm and well perfused, pulses intact, no LE edema, no clubbing or cyanosis Skin: intact, no rashes/bruises/ulcers Neuro: A&Ox4, speech fluent, CN II-XII grossly intact, Psych: appropriate Body mass index is 33.32 kg/m . LABS AND IMAGING CBC Lab Results Component Value Date WBC 8.70 08/04/2023 HGB 7.5 (L) 08/04/2023 HCT 22.8 (L) 08/04/2023 PLATELET 209 08/04/2023 MCV 110.1 (H) 08/04/2023 EDIF Lab Results Component Value Date RBCDISTRIBU 22.1 (H) 08/04/2023 EOSINOPHILS 6.0 08/04/2023 BASOPHILS 0.0 08/04/2023 LYMPHOCYTABS 2.09 08/04/2023 EOSINOPHLABS 0.52 (H) 08/04/2023 PLATELET 209 08/04/2023 MPV 12.1 08/04/2023 Chemistry Lab Results Component Value Date ALT 21 08/04/2023 AST 23 08/04/2023 ALKPHOS 67 08/04/2023 BILITOTAL 0.6 08/04/2023 Pathology Marrow 07/09- hypercellular (80%), myeloid hyperplasia with atypical forms, erythroid hypoplasia, megakarycotyc atypia, 3% blasts Cytogenetics: 46, XY, del(12)(q13q15)[19]/48, XY[1] Normal FISH ASSESSMENT AND RECOMMENDATIONS Wm Shea is a 73 y.o. male with a PMH of atrial fibrillation who presents with a new diagnosis of MDS. He has received 5 units of blood since the end of March 2023. Reviewed bone marrow biopsy from 07/09 with dysplasia and 3% blasts. IPSS-R score of 3.5 (intermediate risk). Discussed this risk score with the patient and , and discussed trajectory and treatments of both low and high risk disease. MDS, pending risk assessment - Reviewed bone marrow from 07/09 with dysplasia, 3% blasts -Consented to [facility] A Phase I Study of SEA-CD70 in Myeloid Malignancies - Staging bone marrow biopsy performed today. RTC 08/17 GRACE Sadler documented in this encounter [facility] 08-11-2023 Miscellaneous Notes Addended by: THAI EMANUEL on: 08/11/2023 10:59 AM Modules accepted: Orders documented in this encounter [facility] 08-11-2023 Note Addended by: Eileen EMANUEL on: 08/11/2023 10:59 AM Modules accepted: Orders [facility] 08-04-2023 History of Present illness Narrative HEMATOLOGY NEW PATIENT VISIT HISTORY OF PRESENT ILLNESS Wm Shea is a 73 y.o. male with PMH of afib, FATIMAH presenting with a new diagnosis of MDS. He was first told that his hemoglobin was low (around 12) in the summer in the 2022. He had a near syncopal event in March 2023. He was admitted to the hospital with a low heart rate and he received 2 units of blood. He had a small bleed in his stomach requiring cauterization. He was on eliquis at the time. He required 2 additional units at the end of May. He received one unit most recently in July prior to vacation. He is limited in his activities related to atrial fibrillation at times. He sometimes feels more winded with activities. He does feel improved after a unit of blood. No blood in his stools. Colonoscopy normal 2-3 months ago. He has been told that his iron is high/normal. No recent infections. No night sweats. Weight has been stable. Reviewed Hg of 12.7 in May 2022. Hg 10.9 in October 2022. In March 2023, WBC 5.6 (ANC 3700), Hg 8.1, Platelets 135. Bone marrow biopsy on 07/09 with hypercellular marrow (80%), myeloid hyperplasia with atypical forms, erythroid hypoplasia, megakaryocytic atypia, and 3% blasts. IPSS-R of 4 (intermediate risk). Normal FISH. Cytogenetic with 46, XY, del(12)(q13q15)[19]/48, XY[1]. Transfusion History Date Hgb Comments 04/05 6.1 Given 2u 04/07 7.9 04/08 8.1 04/15 10.4 05/20 7.6 06/05 6.7 06/06 6.3 Given 2u 06/10 9.3 06/17 8.9 06/24 7.9 07/01 8.4 07/08 7.8 07/09 -- Given 1u PAST MEDICAL, SURGICAL, FAMILY, and SOCIAL HISTORY Past Medical History: Diagnosis Date Anemia November 2022 Arrhythmia 2009? A-fib Atrial fibrillation HTN (hypertension) Hypercholesteremia Sleep apnea Past Surgical History: Procedure Laterality Date HIP REPLACEMENT Bilateral Family History Problem Relation Age of Onset Coronary Artery Disease Father Myocardial Infarction Father No blood disorders in family Social History Socioeconomic History Marital status: Tobacco Use Smoking status: Never Smokeless tobacco: Never Vaping Use Vaping status: Never Used Substance and Sexual Activity Alcohol use: Not Currently Comment: rare Drug use: Never Sexual activity: Yes Partners: Female control/protection: None Other Topics Concern Occupational Exposure No Hobby Hazards No REVIEW OF SYSTEMS CONSTITUTIONAL: No fever, chills, change in weight or appetite. SKIN: No rash, itching, lesions, bruises, ulcers. HENT: No congestion, rhinorrhea, or sore throat. EYES: No blurry or diminished vision. CARDIOVASCULAR: No chest pain, palpitations. RESPIRATORY: No cough or shortness of breath. GASTROINTESTINAL: No nausea, vomiting, abdominal pain, diarrhea, constipation. GENITOURINARY: No dysuria, frequency, hesitancy, hematuria. MUSCULOSKELETAL: No joint pains, no decreased range of motion. NEUROLOGICAL: No dizziness or headaches, no weakness. PSYCHIATRIC: No depression, no anxiety. ALLERGY/IMMUNOLOGY: No history of environmental allergies or urticaria. ENDOCRINE: No polydipsia or polyuria, no cold/heat intolerance. HEME: No easy bruising or easy bleeding. OBJECTIVE DATA @VSRANGES@ No intake/output data recorded. Oxygen Therapy: Oxygen Therapy O2 Sat (%): 100 % Physical Exam: Gen: NAD, A&Ox4, well appearing, responds appropriately HEENT: atraumatic, normocephalic, face symmetric, EOMI, sclerae anicteric, mucous membranes moist, normal oral mucosa and dentition Resp: no visible chest wall deformities, non-labored breathing, CTAB, no wheezes/crackles/rales CV: RRR, normal S1/S2, no murmurs/rubs/gallops GI: soft, non-tender, non-distended, NABS, no rebound or guarding Ext: warm and well perfused, pulses intact, no LE edema, no clubbing or cyanosis Skin: intact, no rashes/bruises/ulcers Neuro: A&Ox4, speech fluent, CN II-XII grossly intact, Psych: appropriate Body mass index is 32.99 kg/m . LABS AND IMAGING CBC Lab Results Component Value Date WBC 8.70 08/04/2023 HGB 7.5 (L) 08/04/2023 HCT 22.8 (L) 08/04/2023 PLATELET 209 08/04/2023 MCV 110.1 (H) 08/04/2023 EDIF Lab Results Component Value Date RBCDISTRIBU 22.1 (H) 08/04/2023 PLATELET 209 08/04/2023 MPV 12.1 08/04/2023 Chemistry Bun/Creat/Cl/CO2/Glucose: 22/0.95/106/25/109 (08/03 1243) @LYTESROUNDS@ Lab Results Component Value Date ALT 21 08/04/2023 AST 23 08/04/2023 ALKPHOS 67 08/04/2023 BILITOTAL 0.6 08/04/2023 Pathology Marrow 07/09- hypercellular (80%), myeloid hyperplasia with atypical forms, erythroid hypoplasia, megakarycotyc atypia, 3% blasts Cytogenetics: 46, XY, del(12)(q13q15)[19]/48, XY[1] Normal FISH ASSESSMENT AND RECOMMENDATIONS Wm Shea is a 73 y.o. male with a PMH of atrial fibrillation who presents with a new diagnosis of MDS. He has received 5 units of blood since the end of March 2023. Reviewed bone marrow biopsy from 07/09 with dysplasia and 3% blasts. IPSS-R score of 3.5 (intermediate risk). Discussed this risk score with the patient and , and discussed trajectory and treatments of both low and high risk disease. Reviewed indication for repeat bone marrow biopsy at [facility] to confirm blast percentage and for NGS panel. Discussed that several clinical trial options are available to him pending confirmation of his risk status. He will return for a bone marrow biopsy at the end of next week. Discussed that low risk disease can often be treated with injectables (EPO level ordered) versus higher risk disease requires chemotherapy. Also discussed that if he is intermediate and progressing towards a higher risk disease, that transplant is the only curative option. He is very active, and transplant referral can be placed if he is found to have a higher risk disease on reassessment. MDS, pending risk assessment - Reviewed bone marrow from 07/09 with dysplasia, 3% blasts - CBC with anemia (Hg 7.5) otherwise normal counts - EPO level pending - Return to clinic next week for a bone marrow biopsy - Trial options discussed though pending bone marrow biopsy results. Research blood drawn today. Patient seen and evaluated jointly with Dr. Lewis. Above plan developed after joint discussion with Dr. Lewis. Brittney Dang MD Hematology Oncology Fellow I have independently seen and evaluated the patient with the fellow, Brittney Dang, and agree with the history and physical as well as the assessment and plan which I have reviewed and edited and reflects my input. Transfusion History Date Hgb Comments 04/05 6.1 Given 2u 04/07 7.9 04/08 8.1 04/15 10.4 05/20 7.6 06/05 6.7 06/06 6.3 Given 2u 06/10 9.3 06/17 8.9 06/24 7.9 07/01 8.4 07/08 7.8 07/09 -- Given 1u Wm Shea is a 73 y.o. male with MDS here for initial evaluation. He has been feeling fatigued in between transfusions. Never felt acutely lightheaded/dizzy. Has had changes to his hobbies but no limitations on ADLs. On physical examination, heart is regular rate and rhythm. Lungs are clear to auscultation bilaterally. Abdomen is soft, nontender, and nondistended. VSS. Assessment/Plan: MDS-had a detailed discussion about the meaning of an MDS diagnosis, the BM biopsy findings including the blasts and dysplastic cells as well as available treatment options. - Will check labs today to evaluate need for transfusion support - Plan for repeat bmbx w NGS next week - Discussed various potential clinical trials for MDS - Will meet with trial coordinators to consent - We will call him with lab results Patient education provided. All questions answered. Advised to contact the clinic with any further questions or concerns. Return for per CRC. Documented by Americo Che, for Dr. Mike Lewis on 08/04/2023 at 11:24 AM. All medical record entries made by the Americo Che. were at my direction and personally dictated by me, Dr. Mike Lewis. I have reviewed the chart and agree that the record accurately reflects my personal performance of the history, physical exam, assessment and plan. I have also personally directed, reviewed, and agree with the discharge instructions. Dr. Mike Lewis Associate Clinical Professor, [facility]3] Cancer [place], [facility] Call received from critical lab results: Diff going to pathology. ; Eileen Echols SOCIAL WORK PROGRAM COORDINATOR notified; no further needs at this time. documented in this encounter [facility] 08-04-2023 Instructions Ashley Ambrosio RN - 08/04/2023 10:00 AM EDT Primary Team: Mike Lewis MD, MS Clinic Information: Clinic phone: [phone] (please listen carefully and follow prompts) Clinic fax: [phone] [employer] messages: When sending a message to the provider, please know that these message will be received and answered within 3-5 days. [employer] is a secure, online portal where patients can log in to view their health information and communicate with their healthcare providers. For questions or concerns regarding [employer] access or technical dificulties, please call [phone]. Please expect 48-72 hours for responses to [employer], call triage for all concerns/questions needed sooner, or for any new symptoms. vomiting - unable to keep fluids or meds down Medication refills: Please allow 1 week for all medication refills. Paperwork: Please allow 2 weeks to complete paperwork (i.e. Disability, FMLA, etc) documented in this encounter [facility] 06-24-2023 Evaluation + Plan note Associated Problem(s): FATIMAH (obstructive sleep apnea) He has a history of obstructive sleep apnea. He will continue his therapy for such as that is beneficial from his cardiovascular standpoint. [facility] 06-24-2023 Evaluation + Plan note Associated Problem(s): Hyperlipidemia He will continue his pravastatin at 40 mg p.o. q.day. [facility] 06-24-2023 Evaluation + Plan note Associated Problem(s): Essential hypertension He will continue his valsartan 320 mg p.o. q.day. [facility] 06-24-2023 Miscellaneous Notes Associated Problem(s): FATIMAH (obstructive [...] left atrial size. documented in this encounter [facility] 06-24-2023 Evaluation + Plan note Associated Problem(s): [...] as well as his left atrial size. [facility] 06-24-2023 History of Present illness Narrative Images from the original note were not included. Referring provider: Self, Self Primary care provider: ANETTE Huynh (General) Dear Ms. Razo, I had the pleasure of seeing your patient, Wm Shea, at the [facility] at [facility] on 06/24/2023. I have reviewed pertinent outside medical records available at this time regarding this patient. As you recall, you referred this 73 y.o. male to our attention for paroxysmal atrial fibrillation superimposed upon hypertension and hyperlipidemia. Chief Complaint Patient presents with Establish Care Transfer or care from [place]. Has questions about what could be done other than blood thinner. Has been having trouble with anemia since late 2022. HPI: This is a 73-year-old white male who presents today for a new [facility] Cardiovascular evaluation for paroxysmal atrial fibrillation superimposed upon a history of hypertension and hyperlipidemia. He is accompanied by his spouse. He has been previously evaluated cared for by [facility] in [place], [place]. He has undergone various cardiovascular studies [...] Notes that on 04/05/2023 after watching the 8020select game, he did not feel well. There were concerns of near-syncope. He states he presented to [facility] for further evaluation. It appears that his [...] nursing note reviewed. Exam conducted with a printing bindery assistant present (Spouse.). Constitutional: Appearance: Normal appearance. [...] Supplemental Information: ELECTROCARDIOGRAM 06/06/2023 In summary, Mr. Shea is managed today for the following issues: [...] CARDIAC ELECTROPHYSIOLOGY ECHOCARDIOGRAM apixaban 5 MG tablet TN ECG, CLINIC PERFORMED The above was discussed and reviewed with the patient with his spouse present. They were both agreeable to this approach. We will plan on Return in about 3 months (around 09/22/2023).. If I can be of any further assistance, please do not hesitate to contact me. Sincerely, Jimmy Herrera MD, [facility] [employer] - Clinical Division of Cardiovascular Medicine Department of Internal Medicine [facility] Please be aware that portions of this note may have been completed with a voice recognition software system. Despite efforts to edit the note mis-transcribed words may still be present. 12 Lead EKG performed per provider's order, per policy, and given to Dr. Herrera for interpretation. Medical printing bindery assistant offered to patient prior to sensitive procedure and patient declined documented in this encounter [facility] Evaluation note Diagnosis PAF (paroxysmal atrial fibrillation)- Primary Atrial fibrillation Essential hypertension Unspecified essential hypertension Hyperlipidemia, unspecified hyperlipidemia type FATIMAH (obstructive sleep apnea) Obstructive sleep apnea (adult) (pediatric) [facility] Diagnosis MDS (myelodysplastic syndrome)- Primary Myelodysplastic syndrome, unspecified Research study patient Reserved for inherently not codable concepts WITHOUT codable children [facility] Diagnosis MDS (myelodysplastic syndrome) Myelodysplastic syndrome, unspecified Research study patient Reserved for inherently not codable concepts WITHOUT codable children documented in this encounter [facility] note* Diagnosis Research study patient Reserved for inherently not codable concepts WITHOUT codable children MDS (myelodysplastic syndrome) Myelodysplastic syndrome, unspecified [facility] Diagnosis MDS (myelodysplastic syndrome)- Primary Myelodysplastic syndrome, unspecified Research study patient Reserved for inherently not codable concepts WITHOUT codable children MDS (myelodysplastic syndrome) Myelodysplastic syndrome, unspecified Research study patient Reserved for inherently not codable concepts WITHOUT codable children [facility] Diagnosis PAF (paroxysmal atrial fibrillation) Atrial fibrillation PVC (premature ventricular contraction) Other premature beats NSVT (nonsustained ventricular tachycardia) Paroxysmal ventricular tachycardia Abnormal electrocardiogram (ECG) (EKG) documented [facility]* Diagnosis PAF (paroxysmal atrial fibrillation)- Primary Atrial fibrillation Asymptomatic left ventricular systolic dysfunction (LVSD) Essential hypertension Unspecified essential hypertension Hyperlipidemia, unspecified hyperlipidemia type [facility] Diagnosis MDS (myelodysplastic syndrome) Myelodysplastic syndrome, unspecified [facility] Diagnosis PAF (paroxysmal atrial fibrillation)- Primary Atrial fibrillation Asymptomatic left ventricular systolic dysfunction (LVSD) Essential hypertension Unspecified essential hypertension Hyperlipidemia, unspecified hyperlipidemia type [facility]* Diagnosis PAF (paroxysmal atrial fibrillation) Atrial fibrillation documented in this encounter [facility] note* Diagnosis Sensorineural hearing loss, bilateral- Primary Myelodysplastic syndrome Myelodysplastic syndrome, unspecified [facility] Diagnosis Dietary counseling and surveillance- Primary Dietary surveillance and counseling [facility] Diagnosis MDS (myelodysplastic syndrome)- Primary Myelodysplastic syndrome, unspecified Unspecified severe protein-calorie malnutrition Other specified abnormal findings of blood chemistry [facility] Diagnosis MDS (myelodysplastic syndrome) Myelodysplastic syndrome, unspecified [facility] Diagnosis PAF (paroxysmal atrial fibrillation)- Primary Atrial fibrillation Essential hypertension Unspecified essential hypertension Hyperlipidemia, unspecified hyperlipidemia type FATIMAH (obstructive sleep apnea) Obstructive sleep apnea (adult) (pediatric) PAF (paroxysmal atrial fibrillation)- Primary Atrial fibrillation Asymptomatic left ventricular systolic dysfunction (LVSD) Essential hypertension Unspecified essential hypertension Hyperlipidemia, unspecified hyperlipidemia type MDS (myelodysplastic syndrome) Myelodysplastic syndrome, unspecified Other specified abnormal findings of blood chemistry Unspecified severe protein-calorie malnutrition [facility] Diagnosis PAF (paroxysmal atrial fibrillation)- Primary Atrial fibrillation Essential hypertension Unspecified essential hypertension Hyperlipidemia, unspecified hyperlipidemia type FATIMAH (obstructive sleep apnea) Obstructive sleep apnea (adult) (pediatric) PAF (paroxysmal atrial fibrillation)- Primary Atrial fibrillation Asymptomatic left ventricular systolic dysfunction (LVSD) Essential hypertension Unspecified essential hypertension Hyperlipidemia, unspecified hyperlipidemia type MDS (myelodysplastic syndrome) Myelodysplastic syndrome, unspecified [facility] Diagnosis PAF (paroxysmal atrial fibrillation)- Primary Atrial fibrillation Essential hypertension Unspecified essential hypertension Hyperlipidemia, unspecified hyperlipidemia type FATIMAH (obstructive sleep apnea) Obstructive sleep apnea (adult) (pediatric) PAF (paroxysmal atrial fibrillation)- Primary Atrial fibrillation Asymptomatic left ventricular systolic dysfunction (LVSD) Essential hypertension Unspecified essential hypertension Hyperlipidemia, unspecified hyperlipidemia type PAF (paroxysmal atrial fibrillation)- Primary Atrial fibrillation Nonrheumatic mitral valve insufficiency Mitral valve disorders Essential hypertension Unspecified essential hypertension Hyperlipidemia, unspecified hyperlipidemia type [facility] Diagnosis PAF (paroxysmal atrial fibrillation)- Primary Atrial fibrillation Essential hypertension Unspecified essential hypertension Hyperlipidemia, unspecified hyperlipidemia type FATIMAH (obstructive sleep apnea) Obstructive sleep apnea (adult) (pediatric) PAF (paroxysmal atrial fibrillation)- Primary Atrial fibrillation Asymptomatic left ventricular systolic dysfunction (LVSD) Essential hypertension Unspecified essential hypertension Hyperlipidemia, unspecified hyperlipidemia type PAF (paroxysmal atrial fibrillation) Atrial fibrillation Essential hypertension Unspecified essential hypertension Hyperlipidemia, unspecified hyperlipidemia type PAF (paroxysmal atrial fibrillation)- Primary Atrial fibrillation Nonrheumatic mitral valve insufficiency Mitral valve disorders Essential hypertension Unspecified essential hypertension Hyperlipidemia, unspecified hyperlipidemia type [facility] Name Dates Details Patient Instructions Indication:Cough Start:25-Feb-2013 Instruction Type:Provider Instructions for Treatment Patient Instructions Indication:Influenza A (H1N1) Start:08-May-2012 Instruction Type:Provider Instructions for Treatment [facility] Work Phone: Instructions* Name Dates Details Patient Instructions Indication:Cough Start:25-Feb-2013 Instruction Type:Provider Instructions for Treatment Patient Instructions Indication:Influenza A (H1N1) Start:08-May-2012 Instruction Type:Provider Instructions for Treatment [facility] Work Phone: reason for referral (narrative)* Consultation (Routine) - New Request Specialty Diagnoses / Procedures Referred By Contac t Referred To Contact Electrophysiology Diagnoses PAF (paroxysmal atrial fibrillation) Essential hypertension Hyperlipidemia, unspecified hyperlipidemia type FATIMAH (obstructive sleep apnea) Jimmy Herrera MD [address] [place] [address] Referral ID Status Reason Start Date Expiration Date V isits Requested Visits Authorized [id number] New Request 06/24/2023 07/18/2024 1 1 * Radiology (Routine) - New Request Specialty Diagnoses / Procedures Referred By Contac t Referred To Contact Diagnoses PAF (paroxysmal atrial fibrillation) Essential hypertension Hyperlipidemia, unspecified hyperlipidemia type FATIMAH (obstructive sleep apnea) Procedures ECHOCARDIOGRAM TN ECHO HEART XTHORACIC,COMPLETE W DOPPLER Jimmy Herrera MD [address] [place] [address] Referral ID Status Reason Start Date Expiration Date V isits Requested Visits Authorized [id number] New Request 06/24/2023 07/18/2024 1 1 [facility] Unlisted Procedure Code (Routine) - New Request Specialty Diagnoses / Procedures Referred By Contac t Referred To Contact Diagnoses MDS (myelodysplastic syndrome) Procedures BONE MARROW ASPIRATE AND BIOPSY BrettThaiGRACE [address] [address] Referral ID Status Reason Start Date Expiration Date V isits Requested Visits Authorized [id number] New Request 08/04/2023 08/28/2024 1 1 [facility] Unlisted Procedure Code (Routine) - New Request Specialty Diagnoses / Procedures Referred By Contac t Referred To Contact Diagnoses MDS (myelodysplastic syndrome) Procedures BONE MARROW ASPIRATE AND BIOPSY Brett Thai GRACE Blair [address] [address] Referral ID Status Reason Start Date Expiration Date V isits Requested Visits Authorized [id number] New Request 08/04/2023 08/28/2024 1 1 [facility] Consultation (Routine) - New Request Specialty Diagnoses / Procedures Referred By Contac t Referred To Contact Bone Marrow Transplant Diagnoses MDS (myelodysplastic syndrome) Eileen Echols APRN-CNP [address] [place] [address] Referral ID Status Reason Start Date Expiration Date V isits Requested Visits Authorized [id number] New Request 10/07/2023 10/31/2024 1 1 [facility] Unlisted Procedure Code (Routine) - New Request Specialty Diagnoses / Procedures Referred By Contac t Referred To Contact Diagnoses MDS (myelodysplastic syndrome) Procedures BONE MARROW ASPIRATE AND BIOPSY Jose Ruth APRN-SOCIAL WORK PROGRAM COORDINATOR [address] [place] [address] Referral ID Status Reason Start Date Expiration Date V isits Requested Visits Authorized [id number] New Request 12/01/2023 12/25/2024 1 1 [facility] for visit Narrative* Unlisted Procedure Code (Routine) - New Request Specialty Diagnoses / Procedures Referred By Contac t Referred To Contact Diagnoses MDS (myelodysplastic syndrome) Procedures BONE MARROW ASPIRATE AND BIOPSY Brett Thai Johnnie, SKYLER-SOCIAL WORK PROGRAM COORDINATOR [address] [facility] [address] [place] [address] Referral ID Status Reason Start Date Expiration Date V isits Requested Visits Authorized [id number] New Request 08/04/2023 08/28/2024 1 1 [facility] for visit Narrative* Unlisted Procedure Code (Routine) - New Request Specialty Diagnoses / Procedures Referred By Contac t Referred To Contact Diagnoses MDS (myelodysplastic syndrome) Procedures BONE MARROW ASPIRATE AND BIOPSY Jose Ruth APRN-SOCIAL WORK PROGRAM COORDINATOR [address] [place] [address] Referral ID Status Reason Start Date Expiration Date V isits Requested Visits Authorized [id number] New Request 12/01/2023 12/25/2024 1 1 [facility] Family History No Family History Records FoundUnknown Family Member Name Dates Details Father Comments:PR at 49 yo Status:Active Mother Comments:lived to 88 healthy until then Status:Active Unknown Family Member Name Dates Details Father Comments:PR at 49 yo Status:Active Mother Comments:lived to 88 healthy until then Status:Active Unknown Family Member Name Dates Details Father Comments:PR at 49 yo Status:Active Mother Comments:lived to 88 healthy until then Status:Active Instructions Name Dates Details Patient Instructions Indication:Cough Start:25-Feb-2013 Instruction Type:Provider Instructions for Treatment Patient Instructions Indication:Influenza A (H1N1) Start:08-May-2012 Instruction Type:Provider Instructions for Treatment Summary Purpose Advance Directives No Advanced Directives Records FoundNo Advanced Directives Records Found Reason for Referral Specialty Diagnoses / Procedures Referred By Contac t Referred To Contact Social Work Diagnoses MDS (myelodysplastic syndrome) BrettThai, HOT PACKER-SOCIAL WORK PROGRAM COORDINATOR [address] [place] [address] Referral ID Status Reason Start Date Expiration Date V isits Requested Visits Authorized [id number] New Request 08/11/2023 09/04/2024 1 1 Specialty Diagnoses / Procedures Referred By Contac t Referred To Contact Social Work Diagnoses MDS (myelodysplastic syndrome) Onesimo Eileen L, HOT PACKER-SOCIAL WORK PROGRAM COORDINATOR [address] [place] [address] Referral ID Status Reason Start Date Expiration Date V isits Requested Visits Authorized [id number] New Request 08/20/2023 09/13/2024 1 1 Specialty Diagnoses / Procedures Referred By Contac t Referred To Contact Diagnoses PAF (paroxysmal atrial fibrillation) Essential hypertension Hyperlipidemia, unspecified hyperlipidemia type Procedures ECHOCARDIOGRAM LIMITED/FOLLOWUP TN ECHO TRANSTHORC R-T 2D W/WO M-MODE REC F-UP/LMTD TN DOP ECHOCARD PULSE WAVE W/SPECTRAL F-UP/LMTD STD TN DOP ECHOCARD COLOR FLOW VELOCITY MAPPING Jimmy Herrera MD [address] [facility] [address] [place] [address] Referral ID Status Reason Start Date Expiration Date V isits Requested Visits Authorized [id number] New Request 10/02/2023 10/26/2024 1 1 Specialty Diagnoses / Procedures Referred By Contac t Referred To Contact Diagnoses PAF (paroxysmal atrial fibrillation) Procedures CT CARDIAC PULMONARY VENOGRAM CHG CT HEART CONTRAST EVAL CARDIAC STRUCTURE&MORPH Bandar Swanson MD [address] [place] [address] Referral ID Status Reason Start Date Expiration Date V isits Requested Visits Authorized [id number] New Request 10/14/2023 11/07/2024 1 1 Specialty Diagnoses / Procedures Referred By Contac t Referred To Contact Diagnoses PAF (paroxysmal atrial fibrillation) Essential hypertension Hyperlipidemia, unspecified hyperlipidemia type Procedures ECHOCARDIOGRAM LIMITED/FOLLOWUP TN ECHO TRANSTHORC R-T 2D W/WO M-MODE REC F-UP/LMTD TN DOP ECHOCARD PULSE WAVE W/SPECTRAL F-UP/LMTD STD TN DOP ECHOCARD COLOR FLOW VELOCITY MAPPING Jimmy Herrera MD [address] [place] [address] Additional Source Comments (unrecognized sect ion and content) No Status Records FoundNo Status Records Found INFORMATION SOURCE (unrecogn ized section and content) DATE CREATED AUTHOR 08/10/2020 Cristofer Gray [facility] DATE CREATED AUTHOR AUTHOR'S ORGANIZ ATION 02/29/2024 [facility] Reason for Visit (unrecogniz ed section and content) Reason Comments Establish Care Transfer or care [facility]. Has questions about what could be done other than blood thinner. Has been having trouble with anemia since late 2022. Specialty Diagnoses / Procedures Referred By Contact Referred To Contact Cardiovascular Disease / Cardiovascular Medicine Diagnoses Sched w/pt. Afib-saw Dr. Herrera in [place] in 2021 Asked pt to fax in records Procedures NEW PATIENT Self, Self Jimmy Herrera MD [address] [place] [address] Referral ID Status Reason Start Date Expiration Date V isits Requested Visits Authorized [id number] New Request 06/24/2023 07/18/2024 1 1 Specialty Diagnoses / Procedures Referred By Contac t Referred To Contact Diagnoses PAF (paroxysmal atrial fibrillation) Essential hypertension Hyperlipidemia, unspecified hyperlipidemia type FATIMAH (obstructive sleep apnea) Procedures ECHOCARDIOGRAM TN ECHO HEART XTHORACIC,COMPLETE W DOPPLER Jimmy Herrera MD [address] [place] [address] Referral ID Status Reason Start Date Expiration Date V isits Requested Visits Authorized [id number] New Request 06/24/2023 07/18/2024 1 1 Reason Comments Follow-up Reason Comments Consult Specialty Diagnoses / Procedures Referred By Contac t Referred To Contact Hematology & Oncology Diagnoses Myelodysplastic syndrome, unspecified Rekha Sena, [facility] [address] [place] [address] Mike Lewis MD, MBBS [address] [place] [address] Referral ID Status Reason Start Date Expiration Date Visits Requested Visits Authorized [id number] New Request Evaluate & Treat 07/29/2023 08/22/2024 1 1 Specialty Diagnoses / Procedures Referred By Contac t Referred To Contact Diagnoses PAF (paroxysmal atrial fibrillation) PVC (premature ventricular contraction) NSVT (nonsustained ventricular tachycardia) Abnormal electrocardiogram (ECG) (EKG) Procedures NUC MYOCARD PERF STRESS MIBI PHARM NUC MYOCARD PERF STRESS MIBI EXERCISE TN CHG MYOCARDIAL SPECT MULTIPLE STUDIES TN CARDIAC STRESS TST,TRACING ONLY CHG MYOCARDIAL SPECT MULTIPLE STUDIES-T TN CARDIAC STRESS TST,INTERP/REPT ONLY TN CV STRS TST XERS&/OR RX CONT ECG W/O I&R Bandar Swanson MD [address] [address] Referral ID Status Reason Start Date Expiration Date V isits Requested Visits Authorized [id number] New Request 08/27/2023 09/20/2024 1 1 Reason Comments Follow-up 3 mo follow up - SOB on exertion Reason Comments Follow-up Chemotherapy Specialty Diagnoses / Procedures Referred By Contac t Referred To Contact Diagnoses PAF (paroxysmal atrial fibrillation) Procedures CT CARDIAC PULMONARY VENOGRAM CHG CT HEART CONTRAST EVAL CARDIAC STRUCTURE&MORPH Bandar Swanson MD [address] [address] Referral ID Status Reason Start Date Expiration Date V isits Requested Visits Authorized [id number] New Request 10/14/2023 11/07/2024 1 1 Reason Comments Audiogram New Patient Specialty Diagnoses / Procedures Referred By Contac t Referred To Contact Audiology Diagnoses MDS (myelodysplastic syndrome) Niurka Laboy MD [address] [place] [address] Referral ID Status Reason Start Date Expiration Date V isits Requested Visits Authorized [id number] New Request 10/15/2023 11/08/2024 1 1 Reason Comments Nutrition Consultation Specialty Diagnoses / Procedures Referred By Contac t Referred To Contact Nutrition and Dietetics Diagnoses MDS (myelodysplastic syndrome) Niurka Laboy MD [address] [place] [address] Referral ID Status Reason Start Date Expiration Date V isits Requested Visits Authorized [id number] New Request 10/15/2023 11/08/2024 1 1 Reason Comments New Patient Specialty Diagnoses / Procedures Referred By Bryon t Referred To Contact Hematology Diagnoses MDS (myelodysplastic syndrome) Niurka Laboy MD [address] [place] [address] Referral ID Status Reason Start Date Expiration Date V isits Requested Visits Authorized [id number] New Request 10/15/2023 11/08/2024 1 1 Reason Comments Consult Specialty Diagnoses / Procedures Referred By Contac t Referred To Contact Bone Marrow Transplant Diagnoses MDS (myelodysplastic syndrome) Eileen Echols, SKYLER-FRANCISCO [address] [place] [address] Referral ID Status Reason Start Date Expiration Date V isits Requested Visits Authorized [id number] New Request 10/07/2023 10/31/2024 1 1 Reason Comments Labs Only Reason Comments Follow-up 3 month follow up. D enies new/worsening cardiac symptoms. Specialty Diagnoses / Procedures Referred By Contac t Referred To Contact Diagnoses PAF (paroxysmal atrial fibrillation) Essential hypertension Hyperlipidemia, unspecified hyperlipidemia type Procedures ECHOCARDIOGRAM LIMITED/FOLLOWUP TN ECHO TRANSTHORC R-T 2D W/WO M-MODE REC F-UP/LMTD TN DOP ECHOCARD PULSE WAVE W/SPECTRAL F-UP/LMTD STD TN DOP ECHOCARD COLOR FLOW VELOCITY MAPPING Jimmy Herrera MD [address] [facility] [address] [place] [address] Referral ID Status Reason Start Date Expiration Date V isits Requested Visits Authorized [id number] New Request 10/02/2023 10/26/2024 1 1 Reason Onset Date Comments Lab Review 01/19/2024 Care Teams (unrecognized sec tion and content) [employer] Relationship Specialty Start Date End Date Brittani Razo FNP [address] [place] [address] PCP - General Nurse Practitioner - [facility] 06/24/23 Superintendent [employer]ophysical Laboratory Relationship Specialty Start Date End Date Brittani Razo FNP [address] [place] [address] PCP - General Nurse Practitioner - [facility] 06/24/23 Rosita Saldivar, RN Registered Nurse 07/29/23 Rekha Sena [facility] [address] [place], [place] [phone] Oncologist Medical Oncology 07/29/23 Mike Lewis MD, MBBS [address] [place] [address] Hematology 07/29/23 Superintendent [employer]ophysical Laboratory Relationship Specialty Start Date End Date Brittani Razo FNP [address] [place] [address] PCP - General Nurse Practitioner - [facility] 06/24/23 Rosita Saldivar, RN Registered Nurse 07/29/23 Rekha Sena, [facility] [address] [place], [place] [address] [phone] Oncologist Medical Oncology 07/29/23 Mike Lewis MD, ANIRUDH [address] [place] [address] Hematology 07/29/23 Superintendent Geophysical Laboratory Relationship Specialty Start Date End Date Brittani Razo FNP [address] [place] [phone] PCP - General Nurse Practitioner - Family 06/24/23 Rosita Saldivar, RN Registered Nurse 07/29/23 Rekha Sena [facility] [address] [place], [place] [phone] Oncologist Medical Oncology 07/29/23 Mike Lewis MD, ANIRUDH [address] [place] [phone] Hematology 07/29/23 Superintendent Geophysical Laboratory Relationship Specialty Start Date End Date Brittani Razo FNP [address] [place] [phone] PCP - General Nurse Practitioner - Family 06/24/23 Rosita Saldivar, RN Registered Nurse 07/29/23 Rekha Sena [facility] [address] [place], [place] [id number] [phone] Oncologist Medical Oncology 07/29/23 Mike Lewis MD, ANIRUDH [address] [place], [place] [phone] Hematology 07/29/23 Zulema Keating, religious healer 08/20/23 Superintendent Geophysical Laboratory Relationship Specialty Start Date End Date Brittani Razo FNP [address] [phone] PCP - General Nurse Practitioner - [facility] 06/24/23 Rosita Saldivar, RN Registered Nurse 07/29/23 Rekha Sena, [facility] [address] [facility] [place], [place] [phone] Oncologist Medical Oncology 07/29/23 Mike Lewis MD, MBBS [address] [place], [place] [phone] Hematology 07/29/23 Superintendent Geophysical Laboratory Relationship Specialty Start Date End Date Brittani Razo FNP [address] [place] [phone] PCP - General Nurse Practitioner - [facility] 06/24/23 Rosita Saldivar, RN Registered Nurse 07/29/23 Rekha Sena, [facility] [address] [facility] [place], [place] [phone] Oncologist Medical Oncology 07/29/23 Mike Lewis MD, MBBS [address] [place], [place] [phone] Hematology 07/29/23 Zulema Keating, religious healer 08/27/23 Superintendent Geophysical Laboratory Relationship Specialty Start Date End Date Brittani Razo FNP [address] [phone] PCP - General Nurse Practitioner - Family 06/24/23 Rosita Saldivar, RN Registered Nurse 07/29/23 Rekha Sena [facility] [address] [facility] [place] [address] Oncologist Medical Oncology 07/29/23 Mike Lewis [facility] [address] [place] [address] Hematology 07/29/23 Zulema Keating, religious healer 09/15/23 Superintendent Geophysical Laboratory Relationship Specialty Start Date End Date Brittani Razo FNP [address] [place] [address] PCP - General Nurse Practitioner - [facility] 06/24/23 Rosita Saldivar, DAVID Registered Nurse 07/29/23 Rekha Sena, [facility] [address] [place] [address] Oncologist Medical Oncology 07/29/23 Mike Lewis [facility] [address] [place] [address] Hematology 07/29/23 Zulema Keating, religious healer 09/15/23 Superintendent Geophysical Laboratory Relationship Specialty Start Date End Date Brittani Razo FNP [address] [place] [phone] PCP - General Nurse Practitioner - Family 06/24/23 Rosita Saldivar, RN Registered Nurse 07/29/23 Rekha Sena, [facility] [address] [place] [address] Oncologist Medical Oncology 07/29/23 Mike Lewis MBBS [address] [place] [address] Hematology 07/29/23 Zulema Keating, religious healer 09/15/23 Niurka Laboy MD [address] [place] [phone] Transplant Physician Transplant 10/13/23 Vivi Alas, therapeutic case managerManager Radiation Transplant 10/13/23 Superintendent Geophysical Laboratory Relationship Specialty Start Date End Date Brittani Razo FNP [address] [place] [phone] PCP - General Nurse Practitioner - Family 06/24/23 Rosita Saldivar, RN Registered Nurse 07/29/23 Rekha Sena, [facility] [address] [place] [address] Oncologist Medical Oncology 07/29/23 Mike Lewis MBBS [address] [place] [address] Hematology 07/29/23 Zulema Keating, religious healer 09/15/23 Niurka Laboy MD [address] [place] [address] Transplant Physician Transplant 10/13/23 Vivi Alas, therapeutic case managerManager Radiation Transplant 10/13/23 Superintendent Geophysical Laboratory Relationship Specialty Start Date End Date Brittani Razo FNP [address] [phone] PCP - General Nurse Practitioner - Family 06/24/23 Rosita Saldivar, RN Registered Nurse 07/29/23 Rekha Sena, [facility] [address] [facility] [place], [place] [phone] Oncologist Medical Oncology 07/29/23 Mike Lewis MBBS [address] [place] [address] Hematology 07/29/23 Zulema Keating, religious healer 09/15/23 iNurka Laboy MD [address] [place] [address] Transplant Physician Transplant 10/13/23 Vivi Alas, therapeutic case managerManager Radiation Transplant 10/13/23 Superintendent Geophysical Laboratory Relationship Specialty Start Date End Date Brittani Razo FNP [address] [place] [phone] PCP - General Nurse Practitioner - Family 06/24/23 Rosita Saldivar, RN Registered Nurse 07/29/23 Rekha Sena, [facility] [address] [place], [place] [phone] Oncologist Medical Oncology 07/29/23 Mike Lewis MBBS [address] [place] [address] Hematology 07/29/23 Zulema Keating, religious healer 09/15/23 Niurka Laboy MD [address] [place] [phone] Transplant Physician Transplant 10/13/23 Vivi Alas, therapeutic case managerManager Radiation Transplant 10/13/23 Superintendent Geophysical Laboratory Relationship Specialty Start Date End Date Brittani Razo FNP [address] [place] [phone] PCP - General Nurse Practitioner - Family 06/24/23 Rosita Saldivar, RN Registered Nurse 07/29/23 Rekha Sena [facility] [address] [place], [place] [phone] Oncologist Medical Oncology 07/29/23 Mike Lewis MBBS [address] [place] [address] Hematology 07/29/23 Zulema Keating, religious healer 09/15/23 Niurka Laboy MD [address] [place] [address] Transplant Physician Transplant 10/13/23 Vivi Alas, therapeutic case managerManager Radiation Transplant 10/13/23 Superintendent Geophysical Laboratory Relationship Specialty Start Date End Date Brittani Razo FNP [address] [place] [phone] PCP - General Nurse Practitioner - Family 06/24/23 Rosita Saldivar, RN Registered Nurse 07/29/23 Rekha Sena [facility] [address] [place] [phone] Oncologist Medical Oncology 07/29/23 Mike Lewis MBBS [address] [place], [place] [phone] Hematology 07/29/23 Zulema Keating, religious healer 09/15/23 Niurka Laboy MD [address] [place] [address] Transplant Physician Transplant 10/13/23 Vivi Alas, therapeutic case managerManager Radiation Transplant 10/13/23 Superintendent Geophysical Laboratory Relationship Specialty Start Date End Date Brittani Razo FNP [address] [place] [phone] PCP - General Nurse Practitioner - Family 06/24/23 Rosita Saldivar, DAVID Registered Nurse 07/29/23 Rekha Sena, [facility] [address] [place], [place] [phone] Oncologist Medical Oncology 07/29/23 Mike Lewis MBBS [address] [place] [address] Hematology 07/29/23 Niurka Laboy MD [address] [place] [address] Transplant Physician Transplant 10/13/23 Vivi Alas, therapeutic case managerManager Radiation Transplant 10/13/23 Superintendent Geophysical Laboratory Relationship Specialty Start Date End Date Brittani Razo FNP [address] [place] [phone] PCP - General Nurse Practitioner - Family 06/24/23 Rosita Saldivar, DAVID Registered Nurse 07/29/23 Rekha Sena [facility] [address] [place] [address] Oncologist Medical Oncology 07/29/23 Mike Lewis MBBS [address] [place] [address] Hematology 07/29/23 Niurka Laboy MD [address] [place] [phone] Transplant Physician Transplant 10/13/23 Vivi Alas, therapeutic case managerManager Radiation Transplant 10/13/23 Superintendent Geophysical Laboratory Relationship Specialty Start Date End Date Brittani Razo FNP [address] [place] [address] [place] [phone] PCP - General Nurse Practitioner - Family 06/24/23 Rosita Saldivar, DAVID Registered Nurse 07/29/23 Rekha Sena [facility] [address] [facility] [place] [address] [phone] Oncologist Medical Oncology 07/29/23 Mike Lewis MBBS [address] [place] [address] Hematology 07/29/23 Niurka Laboy MD [address] [place] [address] Transplant Physician Transplant 10/13/23 Vivi Alas, therapeutic case managerManager Radiation Transplant 10/13/23 Jimmy Herrera MD [address] [address] [employer] Maintenance Technican Cardiovascular Disease 01/07/24 Superintendent Geophysical Laboratory Relationship Specialty Start Date End Date Brittani RazoANETTE [address] [place] [phone] PCP - General Nurse Practitioner - Family 06/24/23 Rosita Saldivar, RN Registered Nurse 07/29/23 Rekha Sena, [facility] [address] [place], [place] [phone] Oncologist Medical Oncology 07/29/23 Mike Lewis MBBS [address] [place] [address] Hematology 07/29/23 Niurka Laboy MD [address] [place] [address] Transplant Physician Transplant 10/13/23 Vivi Alas, therapeutic case managerManager Radiation Transplant 10/13/23 Jimmy Herrera MD [address] [phone] Operations And Maintenance Technican Cardiovascular Disease 01/07/24 Superintendent Geophysical Laboratory Relationship Specialty Start Date End Date Brittani Razo FNP [address] [phone] PCP - General Nurse Practitioner - [facility] 06/24/23 Rosita Saldivar, RN Registered Nurse 07/29/23 Rekha Sena [facility] [address] [place] [address] Oncologist Medical Oncology 07/29/23 Mike Lewis MBBS [address] [place] [address] Hematology 07/29/23 Niurka Laboy MD [address] [place] [address] Transplant Physician Transplant 10/13/23 Vivi Alas, therapeutic case managerManager Radiation Transplant 10/13/23 Jimmy Herrera MD [address] [phone] Operations And Maintenance Technican Cardiovascular Disease 01/07/24 FOR RECORDS PERTAINING TO PATIENTS WHO ARE [...] BE BASED ON THE PRIMARY CLINICAL RECORDS. [employer] provides no warranty or guarantee of the accuracy or completeness of information in this document.
[2024-03-02 09:19] VITALS: BP 102/62; PULSE 51; RESP 16; TEMP 36.3; O2SAT 99
[2024-03-02 10:19] VITALS: BP 131/71; PULSE 72; RESP 16; TEMP 36.2; O2SAT 99
[2024-03-02 11:01] VITALS: BP 125/70; PULSE 70; RESP 16; TEMP 36.2; O2SAT 99
== END 2024-03-02 23:59 | disposition home or self-care (01) ==
LOC: MEDOUTP 08:45
PROVIDERS: Clinical Nurse Specialist Acute Care; PCP Nurse Practitioner Family; Referring Provider Nurse Practitioner; Visit Provider Nurse Practitioner
DX: D46.9 Myelodysplastic syndrome, unspecified (principal)
CPT/HCPCS: 36430; 80053; 85025; 86644; 86850; 86900; 86901; 86920; 86922; J7050; P9040; A4216

== ENCOUNTER 2024-03-09 11:09 | Outpatient (CLI) | payer MEDICARE, BC, SELFPAY ==
[2024-03-09 11:36] VITALS: BP 124/63; PULSE 70; RESP 16; TEMP 35.6; O2SAT 98; BMI 32.5
[2024-03-09 12:02] VITALS: BP 113/65; PULSE 81; RESP 16; TEMP 35.9
[2024-03-09 13:21] VITALS: BP 110/57; PULSE 73; RESP 16; TEMP 36.1; O2SAT 97
[2024-03-09 13:57] VITALS: BP 112/67; PULSE 83; RESP 16; TEMP 36.6; O2SAT 98
== END 2024-03-09 23:59 | disposition home or self-care (01) ==
LOC: MEDOUTP 11:09
PROVIDERS: PCP Nurse Practitioner Family; Referring Provider Nurse Practitioner; Visit Provider Nurse Practitioner
DX: D46.9 Myelodysplastic syndrome, unspecified (principal)
CPT/HCPCS: 36430; 86644; 86850; 86900; 86901; 86920; 86922; J7040; P9040; A4216

== ENCOUNTER 2024-03-16 09:57 | Outpatient (CLI) | payer MEDICARE, BC, SELFPAY ==
[2024-03-16 10:15] VITALS: BP 115/43; PULSE 52; RESP 16; TEMP 36.1; O2SAT 95
[2024-03-16 10:39] VITALS: BP 110/55; PULSE 48; RESP 16; TEMP 36.6
[2024-03-16 12:04] VITALS: BP 128/57; PULSE 75; RESP 16; TEMP 36.2
== END 2024-03-16 23:59 | disposition home or self-care (01) ==
LOC: MEDOUTP 09:58
PROVIDERS: PCP Nurse Practitioner Family; Referring Provider Nurse Practitioner; Visit Provider Nurse Practitioner
DX: D46.9 Myelodysplastic syndrome, unspecified (principal)
CPT/HCPCS: 36430; 86644; 86850; 86900; 86901; 86920; 86922; J7040; P9040; A4216

== ENCOUNTER 2024-03-22 09:28 | Outpatient (CLI) | payer MEDICARE, BC, SELFPAY ==
[2024-03-22 09:56] LABS: Absolute Lymphocyte Count 1.87 X10^3/uL (0.83-4.51); Absolute Neutrophil Count 2.2 X10^3/uL (2.0-7.7); Basophil# 0.01 X10^3/uL; Basophil% 0.2 % (0-1); Differential Indicated SCAN CRITERIA MET; Eosinophil# 0.17 X10^3/uL; Eosinophils% 3.8 % (0-5); Hematocrit 26.7 % (40-54); Hemoglobin 8.8 g/dL (13.0-16.5); Lymphocyte # 1.87 X10^3/ul (0.83-4.51); Lymphocyte % 41.6 % (19-41); Mean Platelet Vol. 11.1 fl (6.2-12.0); Monocyte% 2.2 % (0-10); NRBC Flagged by Analyzer 0.7 % (0-5); Neutrophil # 2.19 X10^3/uL (2.7-7.7); Neutrophil % 48.9 % (47-70); POSITIVE COUNT YES; POSITIVE MORPHOLOGY YES; Platelet Count 86 K/mm3 (150-450); RBC Distribution Width CV 15.4 % (11.6-14.6); RBC Distribution Width SD 44.7 fl (35.1-43.9); Red Blood Count 2.84 M/mm3 (4.6-6.2); White Blood Count 4.5 K/mm3 (4.4-11.0)
[2024-03-22 10:11] LABS: ALB/GLOB Ratio 1.1 RATIO (0.9-2.4); AST(SGOT) 43 U/L (15-37); Alanine Aminotransfer ALT/SGPT 85 U/L (16-61); Albumin, Serum 3.7 g/dL (3.2-5.0); Alkaline Phosphatase 74 U/L (45-117); Anion Gap 3 (5-15); BUN 17 mg/dL (7-18); BUN/Creat Ratio 17.5 RATIO (10-20); Chloride 111 mmol/L (98-107); Creatinine, Serum 0.97 mg/dL (0.70-1.30); EST Glomerular Filtration Rate 81 mL/min (>60); Est Glom Filt Rate - Afr Amer 98 mL/min (>60); Globulin 3.3 g/dL (2.2-4.2); Glucose 113 mg/dL (74-106); Potassium 4.3 mmol/L (3.5-5.1); Sodium Level 142 mmol/L (136-145)
[2024-03-22 10:21] LABS: Anisocytosis 2+; Reactive Lymphocyte 1+
[2024-03-22 17:50] LABS: Xtra CC BBK (Onc ONLY) EXTRA TUBE
== END 2024-03-22 23:59 | disposition home or self-care (01) ==
LOC: MEDOUTP 09:29
PROVIDERS: Clinical Nurse Specialist Acute Care; PCP Nurse Practitioner Family; Referring Provider Nurse Practitioner; Visit Provider Nurse Practitioner
DX: D46.9 Myelodysplastic syndrome, unspecified (principal)
CPT/HCPCS: 36591; 80053; 85025; A4216

== ENCOUNTER 2024-03-25 08:56 | Outpatient (CLI) | payer MEDICARE, BC, SELFPAY ==
[2024-03-25 09:19] LABS: Absolute Lymphocyte Count 2.05 X10^3/uL (0.83-4.51); Absolute Neutrophil Count 1.6 X10^3/uL (2.0-7.7); Basophil# 0.02 X10^3/uL; Basophil% 0.5 % (0-1); Eosinophil# 0.23 X10^3/uL; Eosinophils% 5.3 % (0-5); Hematocrit 24.8 % (40-54); Hemoglobin 8.3 g/dL (13.0-16.5); Lymphocyte # 2.05 X10^3/ul (0.83-4.51); Lymphocyte % 46.8 % (19-41); Mean Corp Hgb Conc 33.5 g/dL (32-36); Mean Corpuscular Hgb 31.2 pg (27.0-32.0); Mean Corpuscular Volume 93.2 fL (80-94); Mean Platelet Vol. 11.4 fl (6.2-12.0); Monocyte# 0.28 X10^3/uL; Monocyte% 6.4 % (0-10); NRBC Flagged by Analyzer 0 % (0-5); Neutrophil # 1.62 X10^3/uL (2.7-7.7); Neutrophil % 36.9 % (47-70); POSITIVE COUNT YES; POSITIVE MORPHOLOGY YES; Platelet Count 90 K/mm3 (150-450); RBC Distribution Width CV 15.8 % (11.6-14.6); RBC Distribution Width SD 44.5 fl (35.1-43.9); Red Blood Count 2.66 M/mm3 (4.6-6.2); White Blood Count 4.4 K/mm3 (4.4-11.0)
[2024-03-25 09:20] LABS: Differential Indicated SCAN CRITERIA MET
[2024-03-25 09:41] LABS: Atypical Lymphocyte 1+ %; Platelet Estimate SLT DEC (ADEQ)
[2024-03-25 17:14] LABS: Xtra CC BBK (Onc ONLY) EXTRA TUBE
[2024-03-26 10:00] LABS: Pathologist Review Reviewed
== END 2024-03-25 23:59 | disposition home or self-care (01) ==
LOC: MEDOUTP 08:56
PROVIDERS: Clinical Nurse Specialist Acute Care; PCP Nurse Practitioner Family; Referring Provider Nurse Practitioner; Visit Provider Nurse Practitioner
DX: D46.9 Myelodysplastic syndrome, unspecified (principal)
CPT/HCPCS: 36591; 85025; A4216

== ENCOUNTER 2024-03-29 08:28 | Outpatient (CLI) | payer MEDICARE, BC, SELFPAY ==
[2024-03-29 08:55] LABS: Hematocrit 24.3 % (40-54); Mean Corp Hgb Conc 32.9 g/dL (32-36); Mean Corpuscular Volume 94.2 fL (80-94); Mean Platelet Vol. 11.9 fl (6.2-12.0); POSITIVE COUNT YES; POSITIVE MORPHOLOGY YES; Platelet Count 92 K/mm3 (150-450); RBC Distribution Width CV 15.9 % (11.6-14.6); RBC Distribution Width SD 44.3 fl (35.1-43.9); Red Blood Count 2.58 M/mm3 (4.6-6.2); White Blood Count 5.6 K/mm3 (4.4-11.0)
[2024-03-29 08:59] LABS: Differential Indicated MANUAL DIFF
[2024-03-29 09:06] LABS: ALB/GLOB Ratio 1.1 RATIO (0.9-2.4); AST(SGOT) 56 U/L (15-37); Alanine Aminotransfer ALT/SGPT 109 U/L (16-61); Albumin, Serum 3.6 g/dL (3.2-5.0); Alkaline Phosphatase 72 U/L (45-117); Anion Gap 4 (5-15); BUN 19 mg/dL (7-18); BUN/Creat Ratio 21.9 RATIO (10-20); Calcium,Total 8.9 mg/dL (8.5-10.1); Chloride 110 mmol/L (98-107); Creatinine, Serum 0.87 mg/dL (0.70-1.30); EST Glomerular Filtration Rate 92 mL/min (>60); Est Glom Filt Rate - Afr Amer 111 mL/min (>60); Globulin 3.2 g/dL (2.2-4.2); Glucose 112 mg/dL (74-106); Potassium 4.4 mmol/L (3.5-5.1); Protein, Total 6.8 g/dL (6.4-8.2); Sodium Level 144 mmol/L (136-145)
[2024-03-29 09:27] LABS: Blast 2 % (0-0); Eosinophil 6 % (0-5); Lymphocyte 40 % (19-41); Monocyte 1 % (0-10); Myelocyte 2 % (0-0); Neutrophil-Segmented 47 % (47-70); Platelet Estimate MOD DEC (ADEQ); Promyelocyte 2 % (0-0); Total Cells Counted 100 (MANUAL DIFF)
[2024-03-29 09:28] LABS: Absolute Neutrophil Count 2.6 X10^3/uL (2.0-7.7)
[2024-03-29 16:46] LABS: Xtra CC BBK (Onc ONLY) EXTRA TUBE
[2024-03-31 08:31] LABS: Pathologist Review Reviewed
== END 2024-03-29 23:59 | disposition home or self-care (01) ==
LOC: MEDOUTP 08:28
PROVIDERS: Clinical Nurse Specialist Acute Care; PCP Nurse Practitioner Family; Referring Provider Nurse Practitioner; Visit Provider Nurse Practitioner
DX: D46.9 Myelodysplastic syndrome, unspecified (principal)
CPT/HCPCS: 36591; 80053; 85025; 86850; 86900; 86901; 86920; 86922; A4216

== ENCOUNTER 2024-03-30 11:28 | Outpatient (CLI) | payer MEDICARE, BC, SELFPAY ==
[2024-03-30 11:39] VITALS: BP 110/55; PULSE 57; RESP 16; TEMP 36.2; O2SAT 100
[2024-03-30 12:03] VITALS: BP 104/55; PULSE 58; RESP 16; TEMP 35.8; O2SAT 100
[2024-03-30 13:40] VITALS: BP 111/52; PULSE 55; RESP 16; TEMP 36; O2SAT 99
== END 2024-03-30 23:59 | disposition home or self-care (01) ==
LOC: MEDOUTP 11:28
PROVIDERS: PCP Nurse Practitioner Family; Referring Provider Nurse Practitioner; Visit Provider Nurse Practitioner
DX: D46.9 Myelodysplastic syndrome, unspecified (principal)
CPT/HCPCS: 36430; 86850; 86900; 86901; 86920; 86922; J7050; P9040; A4216

== ENCOUNTER → 2024-08-26 | Outpatient (CLI) | payer MEDICARE, BC, SELFPAY ==
[2024-08-26 10:11] LABS: Absolute Lymphocyte Count 0.58 X10^3/uL (0.83-4.51); Absolute Neutrophil Count 3.6 X10^3/uL (2.0-7.7); Basophil# 0.01 X10^3/uL; Basophil% 0.2 % (0-1); Eosinophil# 0.01 X10^3/uL; Eosinophils% 0.2 % (0-5); Hematocrit 33.3 % (40-54); Hemoglobin 11.1 g/dL (13.0-16.5); Lymphocyte # 0.58 X10^3/ul (0.83-4.51); Lymphocyte % 12.4 % (19-41); Mean Corp Hgb Conc 33.3 g/dL (32-36); Mean Corpuscular Hgb 32.2 pg (27.0-32.0); Mean Corpuscular Volume 96.5 fL (80-94); Mean Platelet Vol. 9.7 fl (6.2-12.0); Monocyte# 0.43 X10^3/uL; Monocyte% 9.2 % (0-10); NRBC Flagged by Analyzer 1.7 % (0-5); Neutrophil # 3.57 X10^3/uL (2.7-7.7); Neutrophil % 76.1 % (47-70); POSITIVE DIFFERENTIAL YES; POSITIVE MORPHOLOGY YES; Platelet Count 145 K/mm3 (150-450); RBC Distribution Width CV 21.3 % (11.6-14.6); RBC Distribution Width SD 75.3 fl (35.1-43.9); Red Blood Count 3.45 M/mm3 (4.6-6.2); White Blood Count 4.7 K/mm3 (4.4-11.0)
[2024-08-26 10:13] LABS: Differential Indicated SCAN CRITERIA MET
[2024-08-26 10:28] LABS: ALB/GLOB Ratio 1.5 RATIO (0.9-2.4); AST(SGOT) 36 U/L (<=37); Alanine Aminotransfer ALT/SGPT 35 U/L (<=46); Albumin, Serum 3.6 g/dL (3.4-4.8); Alkaline Phosphatase 80 U/L (40-129); Anion Gap 9 (5-15); BUN 16 mg/dL (4-19); BUN/Creat Ratio 15.4 RATIO (10-20); Calcium,Total 9.1 mg/dL (7.6-11.0); Carbon Dioxide 24.6 mmol/L (21.0-32.0); Chloride 101 mmol/L (98-108); Creatinine, Serum 1.02 mg/dL (0.70-1.20); EST Glomerular Filtration Rate 78 (>60); Globulin 2.4 g/dL (2.2-4.2); Glucose 120 mg/dL (70-99); Potassium 4.8 mmol/L (3.3-5.1); Sodium Level 134 mmol/L (133-145); Total Bilirubin 0.23 mg/dL (0.00-1.30)
[2024-08-26 10:37] LABS: Anisocytosis 1+
[2024-08-26 17:58] LABS: Xtra CC BBK (Onc ONLY) EXTRA TUBE; Xtra Tube EP Lab EXTRA TUBE
== END | disposition home or self-care (01) ==
PROVIDERS: PCP Nurse Practitioner Family
DX: Z71.89 Other specified counseling (principal); Z94.81 Bone marrow transplant status
CPT/HCPCS: 36415; 80053; 85025

== ENCOUNTER 2024-09-02 08:43 | Outpatient (RCR) | payer MEDICARE, BC, SELFPAY ==
[2024-09-02 09:03] LABS: Absolute Lymphocyte Count 0.81 X10^3/uL (0.83-4.51); Absolute Neutrophil Count 2.7 X10^3/uL (2.0-7.7); Eosinophil# 0.01 X10^3/uL; Eosinophils% 0.3 % (0-5); Hematocrit 33.6 % (40-54); Lymphocyte # 0.81 X10^3/ul (0.83-4.51); Lymphocyte % 20.5 % (19-41); Mean Corp Hgb Conc 32.7 g/dL (32-36); Mean Corpuscular Hgb 32.2 pg (27.0-32.0); Mean Corpuscular Volume 98.2 fL (80-94); Monocyte# 0.39 X10^3/uL; Monocyte% 9.8 % (0-10); NRBC Flagged by Analyzer 1.3 % (0-5); Neutrophil % 68.1 % (47-70); POSITIVE MORPHOLOGY YES; Platelet Count 133 K/mm3 (150-450); RBC Distribution Width CV 21.6 % (11.6-14.6); RBC Distribution Width SD 77.3 fl (35.1-43.9); Red Blood Count 3.42 M/mm3 (4.6-6.2)
[2024-09-02 09:04] LABS: Differential Indicated SCAN CRITERIA MET
[2024-09-02 09:36] LABS: ALB/GLOB Ratio 1.5 RATIO (0.9-2.4); AST(SGOT) 38 U/L (<=37); Alanine Aminotransfer ALT/SGPT 33 U/L (<=46); Albumin, Serum 3.5 g/dL (3.4-4.8); Alkaline Phosphatase 73 U/L (40-129); Anion Gap 10 (5-15); BUN 16 mg/dL (4-19); BUN/Creat Ratio 16.4 RATIO (10-20); Calcium,Total 8.7 mg/dL (7.6-11.0); Carbon Dioxide 22.7 mmol/L (21.0-32.0); Chloride 104 mmol/L (98-108); Creatinine, Serum 0.96 mg/dL (0.70-1.20); EST Glomerular Filtration Rate 84 (>60); Globulin 2.3 g/dL (2.2-4.2); Glucose 113 mg/dL (70-99); Potassium 4.3 mmol/L (3.3-5.1); Protein, Total 5.7 g/dL (5.9-8.4); Sodium Level 137 mmol/L (133-145); Total Bilirubin 0.25 mg/dL (0.00-1.30)
[2024-09-02 09:40] LABS: Anisocytosis 2+
[2024-09-02 16:51] LABS: Xtra CC BBK (Onc ONLY) EXTRA TUBE; Xtra Tube EP Lab EXTRA TUBE
== END 2024-09-08 23:59 ==
LOC: PAVLAB 08:43
PROVIDERS: PCP Nurse Practitioner Family
DX: Z94.81 Bone marrow transplant status (principal)
CPT/HCPCS: 36415; 80053; 85025

== ENCOUNTER 2024-10-07 09:28 | Outpatient (RCR) | payer MEDICARE, BC, SELFPAY ==
[2024-09-09 08:53] LABS: Absolute Lymphocyte Count 0.66 X10^3/uL (0.83-4.51); Eosinophil# 0.01 X10^3/uL; Eosinophils% 0.3 % (0-5); Hematocrit 31.8 % (40-54); Hemoglobin 10.6 g/dL (13.0-16.5); Lymphocyte # 0.66 X10^3/ul (0.83-4.51); Lymphocyte % 16.5 % (19-41); Mean Corp Hgb Conc 33.3 g/dL (32-36); Mean Corpuscular Hgb 32.5 pg (27.0-32.0); Mean Corpuscular Volume 97.5 fL (80-94); Mean Platelet Vol. 10.2 fl (6.2-12.0); Monocyte% 7.5 % (0-10); NRBC Flagged by Analyzer 1.8 % (0-5); Neutrophil # 2.97 X10^3/uL (2.7-7.7); Neutrophil % 74.4 % (47-70); POSITIVE MORPHOLOGY YES; Platelet Count 127 K/mm3 (150-450); RBC Distribution Width CV 21.1 % (11.6-14.6); RBC Distribution Width SD 75.4 fl (35.1-43.9); Red Blood Count 3.26 M/mm3 (4.6-6.2)
[2024-09-09 08:54] LABS: Differential Indicated SCAN CRITERIA MET
[2024-09-09 09:21] LABS: ALB/GLOB Ratio 1.5 RATIO (0.9-2.4); AST(SGOT) 37 U/L (<=37); Alanine Aminotransfer ALT/SGPT 30 U/L (<=46); Albumin, Serum 3.6 g/dL (3.4-4.8); Alkaline Phosphatase 69 U/L (40-129); Anion Gap 10 (5-15); BUN 18 mg/dL (4-19); BUN/Creat Ratio 20.1 RATIO (10-20); Carbon Dioxide 22.4 mmol/L (21.0-32.0); Chloride 103 mmol/L (98-108); Differential Comment SCANNED; EST Glomerular Filtration Rate 90 (>60); Globulin 2.4 g/dL (2.2-4.2); Glucose 135 mg/dL (70-99); Potassium 4.6 mmol/L (3.3-5.1); Sodium Level 136 mmol/L (133-145); Total Bilirubin 0.19 mg/dL (0.00-1.30)
[2024-09-09 16:50] LABS: Xtra CC BBK (Onc ONLY) EXTRA TUBE; Xtra Tube EP Lab EXTRA TUBE
[2024-09-22 08:08] LABS: Absolute Lymphocyte Count 0.93 X10^3/uL (0.83-4.51); Absolute Neutrophil Count 2.7 X10^3/uL (2.0-7.7); Eosinophil# 0.02 X10^3/uL; Eosinophils% 0.5 % (0-5); Hematocrit 28.8 % (40-54); Hemoglobin 9.4 g/dL (13.0-16.5); Lymphocyte # 0.93 X10^3/ul (0.83-4.51); Lymphocyte % 22.2 % (19-41); Mean Corp Hgb Conc 32.6 g/dL (32-36); Mean Corpuscular Hgb 32.5 pg (27.0-32.0); Mean Corpuscular Volume 99.7 fL (80-94); Mean Platelet Vol. 10.8 fl (6.2-12.0); Monocyte# 0.46 X10^3/uL; NRBC Flagged by Analyzer 2.4 % (0-5); Neutrophil # 2.73 X10^3/uL (2.7-7.7); Neutrophil % 65.1 % (47-70); POSITIVE MORPHOLOGY YES; Platelet Count 143 K/mm3 (150-450); RBC Distribution Width CV 21.1 % (11.6-14.6); RBC Distribution Width SD 77.7 fl (35.1-43.9); Red Blood Count 2.89 M/mm3 (4.6-6.2); White Blood Count 4.2 K/mm3 (4.4-11.0)
[2024-09-22 08:09] LABS: Differential Indicated SCAN CRITERIA MET
[2024-09-22 08:44] LABS: Anisocytosis 2+
[2024-09-22 08:54] LABS: ALB/GLOB Ratio 1.6 RATIO (0.9-2.4); AST(SGOT) 39 U/L (<=37); Alanine Aminotransfer ALT/SGPT 32 U/L (<=46); Albumin, Serum 3.7 g/dL (3.4-4.8); Alkaline Phosphatase 70 U/L (40-129); Anion Gap 10 (5-15); BUN 16 mg/dL (4-19); BUN/Creat Ratio 17.5 RATIO (10-20); Carbon Dioxide 22.9 mmol/L (21.0-32.0); Chloride 106 mmol/L (98-108); Creatinine, Serum 0.89 mg/dL (0.70-1.20); EST Glomerular Filtration Rate 90 (>60); Globulin 2.3 g/dL (2.2-4.2); Glucose 105 mg/dL (70-99); Potassium 4.6 mmol/L (3.3-5.1); Sodium Level 139 mmol/L (133-145); Total Bilirubin 0.21 mg/dL (0.00-1.30)
[2024-09-22 16:05] LABS: Xtra CC BBK (Onc ONLY) EXTRA TUBE; Xtra Tube EP Lab EXTRA TUBE
[2024-09-30 09:24] LABS: Absolute Lymphocyte Count 0.56 X10^3/uL (0.83-4.51); Absolute Neutrophil Count 2.7 X10^3/uL (2.0-7.7); Eosinophil# 0.03 X10^3/uL; Eosinophils% 0.8 % (0-5); Hematocrit 24.4 % (40-54); Hemoglobin 8.1 g/dL (13.0-16.5); Lymphocyte # 0.56 X10^3/ul (0.83-4.51); Lymphocyte % 15.1 % (19-41); Mean Corp Hgb Conc 33.2 g/dL (32-36); Mean Corpuscular Hgb 33.5 pg (27.0-32.0); Mean Corpuscular Volume 100.8 fL (80-94); Monocyte# 0.39 X10^3/uL; Monocyte% 10.5 % (0-10); NRBC Flagged by Analyzer 1.4 % (0-5); Neutrophil # 2.69 X10^3/uL (2.7-7.7); Neutrophil % 72.8 % (47-70); POSITIVE DIFFERENTIAL YES; POSITIVE MORPHOLOGY YES; Platelet Count 145 K/mm3 (150-450); RBC Distribution Width SD 77.8 fl (35.1-43.9); Red Blood Count 2.42 M/mm3 (4.6-6.2); White Blood Count 3.7 K/mm3 (4.4-11.0)
[2024-09-30 09:43] LABS: Differential Indicated SCAN CRITERIA MET
[2024-09-30 09:59] LABS: ALB/GLOB Ratio 1.5 RATIO (0.9-2.4); AST(SGOT) 40 U/L (<=37); Alanine Aminotransfer ALT/SGPT 25 U/L (<=46); Albumin, Serum 3.8 g/dL (3.4-4.8); Alkaline Phosphatase 73 U/L (40-129); Anion Gap 10 (5-15); BUN 16 mg/dL (4-19); Calcium,Total 9.1 mg/dL (7.6-11.0); Carbon Dioxide 22.2 mmol/L (21.0-32.0); Chloride 106 mmol/L (98-108); Creatinine, Serum 0.98 mg/dL (0.70-1.20); EST Glomerular Filtration Rate 82 (>60); Globulin 2.4 g/dL (2.2-4.2); Glucose 114 mg/dL (70-99); Potassium 4.3 mmol/L (3.3-5.1); Protein, Total 6.2 g/dL (5.9-8.4); Sodium Level 139 mmol/L (133-145); Total Bilirubin 0.21 mg/dL (0.00-1.30)
[2024-09-30 10:27] LABS: Anisocytosis 1+; Ovalocyte RARE; Polychromasia RARE
[2024-09-30 17:17] LABS: Xtra CC BBK (Onc ONLY) EXTRA TUBE; Xtra Tube EP Lab EXTRA TUBE
[2024-10-07 09:44] LABS: Absolute Lymphocyte Count 0.59 X10^3/uL (0.83-4.51); Absolute Neutrophil Count 3.4 X10^3/uL (2.0-7.7); Basophil# 0.01 X10^3/uL; Basophil% 0.2 % (0-1); Eosinophil# 0.03 X10^3/uL; Eosinophils% 0.7 % (0-5); Hematocrit 24.3 % (40-54); Lymphocyte # 0.59 X10^3/ul (0.83-4.51); Lymphocyte % 13.4 % (19-41); Mean Corp Hgb Conc 32.9 g/dL (32-36); Mean Corpuscular Hgb 33.5 pg (27.0-32.0); Mean Corpuscular Volume 101.7 fL (80-94); Mean Platelet Vol. 9.7 fl (6.2-12.0); Monocyte# 0.38 X10^3/uL; Monocyte% 8.7 % (0-10); NRBC Flagged by Analyzer 1.1 % (0-5); Neutrophil # 3.36 X10^3/uL (2.7-7.7); Neutrophil % 76.5 % (47-70); POSITIVE DIFFERENTIAL YES; POSITIVE MORPHOLOGY YES; Platelet Count 145 K/mm3 (150-450); RBC Distribution Width CV 20.8 % (11.6-14.6); RBC Distribution Width SD 76.7 fl (35.1-43.9); Red Blood Count 2.39 M/mm3 (4.6-6.2); White Blood Count 4.4 K/mm3 (4.4-11.0)
[2024-10-07 09:45] LABS: Differential Indicated SCAN CRITERIA MET
[2024-10-07 10:37] LABS: ALB/GLOB Ratio 1.7 RATIO (0.9-2.4); AST(SGOT) 31 U/L (<=37); Alanine Aminotransfer ALT/SGPT 23 U/L (<=46); Albumin, Serum 3.7 g/dL (3.4-4.8); Alkaline Phosphatase 75 U/L (40-129); Anion Gap 11 (5-15); BUN 14 mg/dL (4-19); BUN/Creat Ratio 13.8 RATIO (10-20); Calcium,Total 8.9 mg/dL (7.6-11.0); Carbon Dioxide 20.7 mmol/L (21.0-32.0); Chloride 104 mmol/L (98-108); Creatinine, Serum 1.03 mg/dL (0.70-1.20); EST Glomerular Filtration Rate 77 (>60); Globulin 2.2 g/dL (2.2-4.2); Glucose 153 mg/dL (70-99); Potassium 4.5 mmol/L (3.3-5.1); Protein, Total 5.8 g/dL (5.9-8.4); Sodium Level 136 mmol/L (133-145); Total Bilirubin < 0.15 mg/dL (0.00-1.30)
[2024-10-07 10:44] LABS: Anisocytosis 1+
[2024-10-07 17:37] LABS: Xtra CC BBK (Onc ONLY) EXTRA TUBE; Xtra Tube EP Lab EXTRA TUBE
== END 2024-10-09 23:59 ==
LOC: PAVLAB 09:28
PROVIDERS: PCP Nurse Practitioner Family
DX: Z71.89 Other specified counseling (principal); Z94.81 Bone marrow transplant status
CPT/HCPCS: 36415; 80053; 85025

== ENCOUNTER 2024-11-04 08:25 | Outpatient (RCR) | payer MEDICARE, BC, SELFPAY ==
[2024-10-21 08:21] LABS: Absolute Lymphocyte Count 0.44 X10^3/uL (0.83-4.51); Absolute Neutrophil Count 4.7 X10^3/uL (2.0-7.7); Basophil# 0.01 X10^3/uL; Basophil% 0.2 % (0-1); Differential Indicated SCAN CRITERIA MET; Eosinophil# 0.04 X10^3/uL; Eosinophils% 0.7 % (0-5); Hemoglobin 9.3 g/dL (13.0-16.5); Lymphocyte # 0.44 X10^3/ul (0.83-4.51); Lymphocyte % 7.3 % (19-41); Mean Corp Hgb Conc 33.2 g/dL (32-36); Mean Corpuscular Hgb 33.1 pg (27.0-32.0); Mean Corpuscular Volume 99.6 fL (80-94); Mean Platelet Vol. 9.5 fl (6.2-12.0); Monocyte# 0.84 X10^3/uL; Monocyte% 13.9 % (0-10); NRBC Flagged by Analyzer 0.3 % (0-5); Neutrophil # 4.68 X10^3/uL (2.7-7.7); Neutrophil % 77.6 % (47-70); POSITIVE DIFFERENTIAL YES; POSITIVE MORPHOLOGY YES; Platelet Count 180 K/mm3 (150-450); RBC Distribution Width CV 18.2 % (11.6-14.6); RBC Distribution Width SD 67.3 fl (35.1-43.9); Red Blood Count 2.81 M/mm3 (4.6-6.2)
[2024-10-21 08:37] LABS: ALB/GLOB Ratio 1.4 RATIO (0.9-2.4); AST(SGOT) 27 U/L (<=37); Alanine Aminotransfer ALT/SGPT 15 U/L (<=46); Albumin, Serum 3.7 g/dL (3.4-4.8); Alkaline Phosphatase 86 U/L (40-129); Anion Gap 12 (5-15); BUN 12 mg/dL (4-19); BUN/Creat Ratio 12.3 RATIO (10-20); Calcium,Total 9.1 mg/dL (7.6-11.0); Carbon Dioxide 21.4 mmol/L (21.0-32.0); Chloride 104 mmol/L (98-108); Creatinine, Serum 1.01 mg/dL (0.70-1.20); EST Glomerular Filtration Rate 79 (>60); Globulin 2.7 g/dL (2.2-4.2); Glucose 100 mg/dL (70-99); Potassium 4.3 mmol/L (3.3-5.1); Protein, Total 6.4 g/dL (5.9-8.4); Sodium Level 137 mmol/L (133-145); Total Bilirubin 0.21 mg/dL (0.00-1.30)
[2024-10-21 09:00] LABS: Anisocytosis 1+
[2024-10-21 16:17] LABS: Xtra CC BBK (Onc ONLY) EXTRA TUBE; Xtra Tube EP Lab EXTRA TUBE
[2024-10-28 08:22] LABS: Absolute Lymphocyte Count 0.55 X10^3/uL (0.83-4.51); Absolute Neutrophil Count 6.4 X10^3/uL (2.0-7.7); Basophil# 0.01 X10^3/uL; Basophil% 0.1 % (0-1); Eosinophil# 0.05 X10^3/uL; Eosinophils% 0.6 % (0-5); Hematocrit 27.9 % (40-54); Hemoglobin 9.4 g/dL (13.0-16.5); Lymphocyte # 0.55 X10^3/ul (0.83-4.51); Lymphocyte % 6.8 % (19-41); Mean Corp Hgb Conc 33.7 g/dL (32-36); Mean Corpuscular Hgb 33.7 pg (27.0-32.0); Monocyte# 1.02 X10^3/uL; Monocyte% 12.6 % (0-10); NRBC Flagged by Analyzer 0.2 % (0-5); Neutrophil # 6.43 X10^3/uL (2.7-7.7); Neutrophil % 79.4 % (47-70); POSITIVE DIFFERENTIAL YES; POSITIVE MORPHOLOGY YES; Platelet Count 238 K/mm3 (150-450); RBC Distribution Width CV 17.6 % (11.6-14.6); RBC Distribution Width SD 65.4 fl (35.1-43.9); Red Blood Count 2.79 M/mm3 (4.6-6.2); White Blood Count 8.1 K/mm3 (4.4-11.0)
[2024-10-28 08:24] LABS: Differential Indicated SCAN CRITERIA MET
[2024-10-28 08:44] LABS: Anisocytosis 2+; Differential Comment SCANNED; Polychromasia RARE
[2024-10-28 08:45] LABS: ALB/GLOB Ratio 1.1 RATIO (0.9-2.4); AST(SGOT) 25 U/L (<=37); Alanine Aminotransfer ALT/SGPT 12 U/L (<=46); Albumin, Serum 3.5 g/dL (3.4-4.8); Alkaline Phosphatase 92 U/L (40-129); Anion Gap 12 (5-15); BUN 9 mg/dL (4-19); BUN/Creat Ratio 9.7 RATIO (10-20); Calcium,Total 9.3 mg/dL (7.6-11.0); Carbon Dioxide 21.5 mmol/L (21.0-32.0); Chloride 100 mmol/L (98-108); Creatinine, Serum 0.93 mg/dL (0.70-1.20); EST Glomerular Filtration Rate 87 (>60); Globulin 3.2 g/dL (2.2-4.2); Glucose 116 mg/dL (70-99); Potassium 4.4 mmol/L (3.3-5.1); Protein, Total 6.7 g/dL (5.9-8.4); Sodium Level 134 mmol/L (133-145); Total Bilirubin 0.23 mg/dL (0.00-1.30)
[2024-10-28 16:18] LABS: Xtra CC BBK (Onc ONLY) EXTRA TUBE; Xtra Tube EP Lab EXTRA TUBE
[2024-11-04 08:44] LABS: Absolute Lymphocyte Count 0.59 X10^3/uL (0.83-4.51); Absolute Neutrophil Count 5.6 X10^3/uL (2.0-7.7); Basophil# 0.01 X10^3/uL; Basophil% 0.1 % (0-1); Eosinophil# 0.11 X10^3/uL; Eosinophils% 1.6 % (0-5); Hematocrit 28.8 % (40-54); Hemoglobin 9.5 g/dL (13.0-16.5); Lymphocyte # 0.59 X10^3/ul (0.83-4.51); Lymphocyte % 8.4 % (19-41); Mean Corpuscular Hgb 33.3 pg (27.0-32.0); Mean Corpuscular Volume 101.1 fL (80-94); Mean Platelet Vol. 9.5 fl (6.2-12.0); Monocyte# 0.61 X10^3/uL; Monocyte% 8.7 % (0-10); NRBC Flagged by Analyzer 0 % (0-5); Neutrophil # 5.64 X10^3/uL (2.7-7.7); Neutrophil % 80.5 % (47-70); POSITIVE DIFFERENTIAL YES; POSITIVE MORPHOLOGY YES; Platelet Count 298 K/mm3 (150-450); RBC Distribution Width CV 17.7 % (11.6-14.6); RBC Distribution Width SD 65.8 fl (35.1-43.9); Red Blood Count 2.85 M/mm3 (4.6-6.2)
[2024-11-04 08:47] LABS: Differential Indicated SCAN CRITERIA MET
[2024-11-04 09:22] LABS: ALB/GLOB Ratio 1.2 RATIO (0.9-2.4); AST(SGOT) 25 U/L (<=37); Alanine Aminotransfer ALT/SGPT 13 U/L (<=46); Albumin, Serum 3.5 g/dL (3.4-4.8); Alkaline Phosphatase 92 U/L (40-129); Anion Gap 12 (5-15); Anisocytosis 1+; BUN 12 mg/dL (4-19); BUN/Creat Ratio 11.5 RATIO (10-20); Calcium,Total 9.2 mg/dL (7.6-11.0); Carbon Dioxide 21.2 mmol/L (21.0-32.0); Chloride 104 mmol/L (98-108); Creatinine, Serum 1.03 mg/dL (0.70-1.20); EST Glomerular Filtration Rate 77 (>60); Globulin 3.1 g/dL (2.2-4.2); Glucose 119 mg/dL (70-99); Potassium 4.5 mmol/L (3.3-5.1); Protein, Total 6.6 g/dL (5.9-8.4); Sodium Level 138 mmol/L (133-145); Total Bilirubin 0.17 mg/dL (0.00-1.30)
[2024-11-04 16:39] LABS: Xtra CC BBK (Onc ONLY) EXTRA TUBE; Xtra Tube EP Lab EXTRA TUBE
== END 2024-11-08 23:59 ==
LOC: PAVLAB 08:25
PROVIDERS: PCP Nurse Practitioner Family
DX: Z71.89 Other specified counseling (principal); Z94.81 Bone marrow transplant status
CPT/HCPCS: 36415; 80053; 85025

== ENCOUNTER 2024-12-02 12:45 | Outpatient (RCR) | payer MEDICARE, BC, SELFPAY ==
[2024-11-18 08:31] LABS: Hematocrit 27.5 % (40-54); Hemoglobin 8.8 g/dL (13.0-16.5); Immature Granulocytes Count 0.030 X10^3/uL (0.0-0.0); Mean Corp Hgb Conc 32.0 g/dL (32-36); Mean Corpuscular Volume 103.0 fL (80-94); Mean Platelet Vol. 9.3 fl (6.2-12.0); NRBC Flagged by Analyzer 0.3 % (0-5); POSITIVE DIFFERENTIAL YES; Platelet Count 302 K/mm3 (150-450); RBC Distribution Width CV 17.2 % (11.6-14.6); RBC Distribution Width SD 64.8 fl (35.1-43.9); Red Blood Count 2.67 M/mm3 (4.6-6.2); White Blood Count 5.9 K/mm3 (4.4-11.0)
[2024-11-18 08:57] LABS: AST(SGOT) 24 U/L (<=37); Alanine Aminotransfer ALT/SGPT 12 U/L (<=46); Albumin, Serum 3.7 g/dL (3.4-4.8); Alkaline Phosphatase 93 U/L (40-129); Anion Gap 10 (5-15); BUN 9 mg/dL (4-19); BUN/Creat Ratio 9.0 RATIO (10-20); Calcium,Total 9.1 mg/dL (7.6-11.0); Carbon Dioxide 22.0 mmol/L (21.0-32.0); Chloride 106 mmol/L (98-108); Globulin 2.7 g/dL (2.2-4.2); Glucose 102 mg/dL (70-99); Potassium 4.6 mmol/L (3.3-5.1)
[2024-11-18 16:29] LABS: Xtra CC BBK (Onc ONLY) EXTRA TUBE; Xtra Tube EP Lab EXTRA TUBE
[2024-11-25 08:42] LABS: Hematocrit 25.6 % (40-54); Hemoglobin 8.4 g/dL (13.0-16.5); Immature Granulocytes Count 0.020 X10^3/uL (0.0-0.0); Mean Corp Hgb Conc 32.8 g/dL (32-36); Mean Corpuscular Volume 102.8 fL (80-94); Mean Platelet Vol. 9.3 fl (6.2-12.0); NRBC Flagged by Analyzer 0 % (0-5); POSITIVE DIFFERENTIAL YES; POSITIVE MORPHOLOGY YES; Platelet Count 300 K/mm3 (150-450); RBC Distribution Width CV 17.7 % (11.6-14.6); RBC Distribution Width SD 66.0 fl (35.1-43.9); Red Blood Count 2.49 M/mm3 (4.6-6.2); White Blood Count 5.2 K/mm3 (4.4-11.0)
[2024-11-25 08:45] LABS: Differential Indicated SCAN CRITERIA MET
[2024-11-25 09:22] LABS: Anisocytosis 1+; Hypochromasia 1+
[2024-11-25 09:28] LABS: AST(SGOT) 24 U/L (<=37); Alanine Aminotransfer ALT/SGPT 11 U/L (<=46); Albumin, Serum 3.6 g/dL (3.4-4.8); Alkaline Phosphatase 88 U/L (40-129); Anion Gap 11 (5-15); BUN 10 mg/dL (4-19); BUN/Creat Ratio 12.5 RATIO (10-20); Calcium,Total 9.0 mg/dL (7.6-11.0); Carbon Dioxide 21.8 mmol/L (21.0-32.0); Chloride 106 mmol/L (98-108); Globulin 2.7 g/dL (2.2-4.2); Glucose 112 mg/dL (70-99); Potassium 4.3 mmol/L (3.3-5.1)
[2024-11-25 16:40] LABS: Xtra CC BBK (Onc ONLY) EXTRA TUBE; Xtra Tube EP Lab EXTRA TUBE
[2024-12-02 13:15] LABS: Hematocrit 26.9 % (40-54); Hemoglobin 8.7 g/dL (13.0-16.5); Immature Granulocytes Count 0.010 X10^3/uL (0.0-0.0); Mean Corp Hgb Conc 32.3 g/dL (32-36); Mean Corpuscular Volume 103.9 fL (80-94); Mean Platelet Vol. 9.5 fl (6.2-12.0); NRBC Flagged by Analyzer 0 % (0-5); POSITIVE MORPHOLOGY YES; Platelet Count 314 K/mm3 (150-450); RBC Distribution Width CV 17.9 % (11.6-14.6); RBC Distribution Width SD 67.4 fl (35.1-43.9); Red Blood Count 2.59 M/mm3 (4.6-6.2); White Blood Count 5.7 K/mm3 (4.4-11.0)
[2024-12-02 13:16] LABS: Differential Indicated SCAN CRITERIA MET
[2024-12-02 13:28] LABS: AST(SGOT) 27 U/L (<=37); Alanine Aminotransfer ALT/SGPT 12 U/L (<=46); Albumin, Serum 3.9 g/dL (3.4-4.8); Alkaline Phosphatase 93 U/L (40-129); Anion Gap 9 (5-15); BUN 12 mg/dL (4-19); BUN/Creat Ratio 14.6 RATIO (10-20); Calcium,Total 8.9 mg/dL (7.6-11.0); Carbon Dioxide 22.9 mmol/L (21.0-32.0); Chloride 106 mmol/L (98-108); Globulin 2.5 g/dL (2.2-4.2); Glucose 82 mg/dL (70-99); Potassium 4.5 mmol/L (3.3-5.1)
[2024-12-02 13:40] LABS: Anisocytosis 1+
[2024-12-02 20:58] LABS: Xtra CC BBK (Onc ONLY) EXTRA TUBE; Xtra Tube EP Lab EXTRA TUBE
== END 2024-12-09 23:59 ==
LOC: PAVLAB 12:45
PROVIDERS: PCP Nurse Practitioner Family
DX: Z71.89 Other specified counseling (principal); Z94.81 Bone marrow transplant status
CPT/HCPCS: 36415; 80053; 85025

== ENCOUNTER → 2024-12-30 | Outpatient (CLI) | payer MEDICARE, BC, SELFPAY | END | disposition home or self-care (01) | LOC: PSN 07:58 | PROVIDERS: PCP Nurse Practitioner Family | DX: Z94.81 Bone marrow transplant status (principal); D89.813 Graft-versus-host disease, unspecified | CPT/HCPCS: 94060; 94726; 94729 ==

== ENCOUNTER 2025-01-06 08:44 | Outpatient (RCR) | payer MEDICARE, BC, SELFPAY ==
[2024-12-16 08:21] LABS: Hematocrit 30.6 % (40-54); Hemoglobin 9.8 g/dL (13.0-16.5); Immature Granulocytes Count 0.020 X10^3/uL (0.0-0.0); Mean Corp Hgb Conc 32.0 g/dL (32-36); Mean Corpuscular Volume 105.9 fL (80-94); Mean Platelet Vol. 9.4 fl (6.2-12.0); NRBC Flagged by Analyzer 0 % (0-5); POSITIVE DIFFERENTIAL YES; POSITIVE MORPHOLOGY YES; Platelet Count 330 K/mm3 (150-450); RBC Distribution Width CV 17.7 % (11.6-14.6); RBC Distribution Width SD 68.6 fl (35.1-43.9); Red Blood Count 2.89 M/mm3 (4.6-6.2); White Blood Count 4.3 K/mm3 (4.4-11.0)
[2024-12-16 08:26] LABS: Differential Indicated SCAN CRITERIA MET
[2024-12-16 08:43] LABS: AST(SGOT) 29 U/L (<=37); Alanine Aminotransfer ALT/SGPT 17 U/L (<=46); Albumin, Serum 4.1 g/dL (3.4-4.8); Alkaline Phosphatase 90 U/L (40-129); Anion Gap 10 (5-15); BUN 18 mg/dL (4-19); BUN/Creat Ratio 18.5 RATIO (10-20); Calcium,Total 9.3 mg/dL (7.6-11.0); Carbon Dioxide 23.3 mmol/L (21.0-32.0); Chloride 108 mmol/L (98-108); Globulin 2.4 g/dL (2.2-4.2); Glucose 108 mg/dL (70-99); Potassium 4.4 mmol/L (3.3-5.1)
[2024-12-16 09:14] LABS: Anisocytosis 2+
[2024-12-16 16:11] LABS: Xtra CC BBK (Onc ONLY) EXTRA TUBE
[2024-12-23 08:24] LABS: Differential Indicated SCAN CRITERIA MET; Hematocrit 30.7 % (40-54); Hemoglobin 9.8 g/dL (13.0-16.5); Immature Granulocytes Count 0.020 X10^3/uL (0.0-0.0); Mean Corp Hgb Conc 31.9 g/dL (32-36); Mean Corpuscular Volume 106.2 fL (80-94); Mean Platelet Vol. 9.5 fl (6.2-12.0); Platelet Count 300 K/mm3 (150-450); RBC Distribution Width CV 17.2 % (11.6-14.6); RBC Distribution Width SD 67.3 fl (35.1-43.9); Red Blood Count 2.89 M/mm3 (4.6-6.2); White Blood Count 4.4 K/mm3 (4.4-11.0)
[2024-12-23 08:52] LABS: Anisocytosis 2+; Differential Comment SCANNED
[2024-12-23 09:30] LABS: AST(SGOT) 29 U/L (<=37); Alanine Aminotransfer ALT/SGPT 18 U/L (<=46); Albumin, Serum 3.9 g/dL (3.4-4.8); Alkaline Phosphatase 88 U/L (40-129); Anion Gap 11 (5-15); BUN 19 mg/dL (4-19); BUN/Creat Ratio 21.1 RATIO (10-20); Calcium,Total 9.3 mg/dL (7.6-11.0); Carbon Dioxide 22.0 mmol/L (21.0-32.0); Chloride 110 mmol/L (98-108); Globulin 2.5 g/dL (2.2-4.2); Glucose 109 mg/dL (70-99); Potassium 4.3 mmol/L (3.3-5.1)
[2024-12-23 16:19] LABS: Xtra CC BBK (Onc ONLY) EXTRA TUBE; Xtra Tube EP Lab EXTRA TUBE
[2024-12-30 09:31] LABS: Hematocrit 31.8 % (40-54); Hemoglobin 10.2 g/dL (13.0-16.5); Immature Granulocytes Count 0.010 X10^3/uL (0.0-0.0); Mean Corp Hgb Conc 32.1 g/dL (32-36); Mean Corpuscular Volume 104.6 fL (80-94); Mean Platelet Vol. 9.3 fl (6.2-12.0); NRBC Flagged by Analyzer 0 % (0-5); Platelet Count 314 K/mm3 (150-450); RBC Distribution Width CV 16.7 % (11.6-14.6); RBC Distribution Width SD 65.0 fl (35.1-43.9); Red Blood Count 3.04 M/mm3 (4.6-6.2); White Blood Count 4.5 K/mm3 (4.4-11.0)
[2024-12-30 10:02] LABS: AST(SGOT) 30 U/L (<=37); Alanine Aminotransfer ALT/SGPT 17 U/L (<=46); Albumin, Serum 4.1 g/dL (3.4-4.8); Alkaline Phosphatase 91 U/L (40-129); Anion Gap 12 (5-15); BUN 12 mg/dL (4-19); BUN/Creat Ratio 15.0 RATIO (10-20); Calcium,Total 9.7 mg/dL (7.6-11.0); Carbon Dioxide 22.1 mmol/L (21.0-32.0); Chloride 106 mmol/L (98-108); Globulin 2.8 g/dL (2.2-4.2); Glucose 121 mg/dL (70-99); Potassium 4.4 mmol/L (3.3-5.1)
[2024-12-30 17:25] LABS: Xtra CC BBK (Onc ONLY) EXTRA TUBE
[2025-01-06 09:04] LABS: Hematocrit 34.1 % (40-54); Hemoglobin 11.2 g/dL (13.0-16.5); Immature Granulocytes Count 0.010 X10^3/uL (0.0-0.0); Mean Corp Hgb Conc 32.8 g/dL (32-36); Mean Corpuscular Volume 102.1 fL (80-94); Mean Platelet Vol. 9.2 fl (6.2-12.0); NRBC Flagged by Analyzer 0 % (0-5); Platelet Count 326 K/mm3 (150-450); RBC Distribution Width CV 16.1 % (11.6-14.6); RBC Distribution Width SD 61.4 fl (35.1-43.9); Red Blood Count 3.34 M/mm3 (4.6-6.2); White Blood Count 3.9 K/mm3 (4.4-11.0)
[2025-01-06 09:27] LABS: AST(SGOT) 29 U/L (<=37); Alanine Aminotransfer ALT/SGPT 20 U/L (<=46); Albumin, Serum 4.1 g/dL (3.4-4.8); Alkaline Phosphatase 85 U/L (40-129); Anion Gap 13 (5-15); BUN 15 mg/dL (4-19); BUN/Creat Ratio 16.7 RATIO (10-20); Calcium,Total 9.5 mg/dL (7.6-11.0); Carbon Dioxide 21.5 mmol/L (21.0-32.0); Chloride 105 mmol/L (98-108); Cholesterol 209 mg/dL (<=200); Globulin 2.6 g/dL (2.2-4.2); Glucose 113 mg/dL (70-99); Low Density Lipoprotein Calc. 126 mg/dL; Potassium 4.0 mmol/L (3.3-5.1); Triglycerides 123 mg/dL; Very Low Density Lipoprotein 25 mg/dL (5-40); cholesterol:hdl ratio screen 3.60
[2025-01-06 17:02] LABS: Xtra CC BBK (Onc ONLY) EXTRA TUBE; Xtra Tube EP Lab EXTRA TUBE
== END 2025-01-09 23:59 ==
LOC: PAVLAB 08:44
PROVIDERS: PCP Nurse Practitioner Family
DX: I48.0 Paroxysmal atrial fibrillation (principal); I10 Essential (primary) hypertension; I51.9 Heart disease, unspecified; I34.0 Nonrheumatic mitral (valve) insufficiency; E78.5 Hyperlipidemia, unspecified; Z71.89 Other specified counseling; Z94.81 Bone marrow transplant status
CPT/HCPCS: 36415; 80053; 80061; 85025